=== PATIENT | male | born 1945 | race American Indian/Alaskan Native ===

== ENCOUNTER 2017-11-15 14:09 | Emergency (ER) | payer MEDICARE ==
--- NOTE | 2017-11-15 15:19 | Emergency Department Report ---
ED General Adult HPI - General Chief complaint: Hyperglycemia Stated complaint: HYPERGLYCEMIC Time Seen by Provider: 11/15/17 15:07 Source: patient, family, EMS (ems notes not available at time of chart dictation), RN notes reviewed, old records reviewed Mode of arrival: Ambulatory Limitations: No Limitations - History of Present Illness Initial comments: This is a 72-year-old gentleman who is not known to this provider previously, typically goes to [place] for his medical care, and reports a past medical history of diabetes. He is brought to the hospital by EMS and with family for evaluation of resolved altered mental status. The patient reports being in his usual state of health while out food shopping, and reports feeling generally weak. He reports that he thought his sugar was too low, then drank a can of soda. As per his family, shortly thereafter, the patient became altered, unresponsive, and fluctuations in consciousness. Apparently his fingerstick was in the 400s in the field. This lasted for less than a minute. It is now resolved. The patient denies preceding headache, chest pain, neck pain, abdominal pain and shortness of breath. He denies COMPLAINTS at this time. He denies urinary symptoms. His family corroborates that the patient is at his baseline mental status at this time. -: Sudden Consistency: now resolved Improves with: none Worsens with: none Associated Symptoms: confusion, malaise, syncope, weakness. denies: chest pain , cough, diaphoresis, fever/chills, headaches, loss of appetite, nausea/vomiting , rash, seizure - Related Data Previous Rx's Medication Instructions Recorded Last Taken Type Aspirin [Aspirin BABY CHEW TAB] 81 mg PO QDAY #30 tab.chew 11/15/17 Unknown Rx Allergies Allergy/AdvReac Type Severity Reaction Status Date / Time No Known Allergies Allergy Unverified 03/29/16 00:43 ED Review of Systems ROS: Stated complaint: HYPERGLYCEMIC Other details as noted in HPI Comment: All other systems reviewed and negative ED Past Medical Hx - Past Medical History Previous Medical History?: Yes Hx Hypertension: Yes Hx CVA: Yes (x2) Hx Diabetes: Yes Hx HIV: Yes Additional medical history: prostate cancer - Surgical History Past Surgical History?: Yes Additional Surgical History: vincenzo hip surgery - Social History Smoking Status: Current Every Day Smoker Substance Use Type: None - Medications Home Medications: Home Medications Medication Instructions Recorded Confirmed Last Taken Type Aspirin [Aspirin BABY CHEW TAB] 81 mg PO QDAY #30 tab.chew 11/15/17 Unknown Rx ED Physical Exam - General Limitations: No Limitations General appearance: alert, in no apparent distress - Head Head exam: Present: atraumatic, normocephalic - Eye Eye exam: Present: normal appearance, EOMI. Absent: nystagmus - ENT ENT exam: Present: normal exam, normal orophraynx, mucous membranes moist, normal external ear exam - Neck Neck exam: Present: normal inspection, full ROM. Absent: tenderness, meningismus - Respiratory Respiratory exam: Present: normal lung sounds bilaterally. Absent: respiratory distress - Cardiovascular Cardiovascular Exam: Present: normal rhythm, bradycardia, normal heart sounds. Absent: tachycardia, irregular rhythm, systolic murmur, diastolic murmur, rubs, gallop - GI/Abdominal GI/Abdominal exam: Present: soft, normal bowel sounds. Absent: distended, tenderness, guarding, rebound, rigid, pulsatile mass - Rectal Rectal exam: Present: deferred - Extremities Exam Extremities exam: Present: normal inspection, full ROM, other (2+ pulses noted in the bilateral upper, lower extremities. Compartments soft. No long bony tenderness. The pelvis is stable.). Absent: calf tenderness - Back Exam Back exam: Present: normal inspection, full ROM. Absent: tenderness, CVA tenderness (R), paraspinal tenderness, vertebral tenderness - Neurological Exam Neurological exam: Present: alert, oriented X3, CN II-XII intact, other ( Extraocular movements intact. Tongue midline. No facial droop. Facial sensation intact to light touch in the V1, V2, V3 distribution bilaterally. 5 and 5 strength in 4 extremities.. Sensation is intact to light touch in 4 extremities.). Absent: motor sensory deficit - Psychiatric Psychiatric exam: Present: normal affect, normal mood - Skin Skin exam: Present: warm, dry, intact, normal color. Absent: rash ED Course Vital Signs 11/15/17 11/15/17 14:51 16:40 Temperature 96.8 F L Pulse Rate 55 L Respiratory 16 Rate Blood Pressure 123/62 O2 Sat by Pulse 100 100 Oximetry - Reevaluation(s) Reevaluation #1: 11/15/17 15:22 Differential diagnosis, including but not limited to: Transient ischemic attack , seizure, intracranial hemorrhage, arrhythmia, acute coronary syndrome, structural cardiac disease, pneumonia, urinary tract infection, convulsion, hyperglycemia, hypoglycemia Assessment and plan: 72-year-old male with reported change in mental status while hyperglycemic. He is currently afebrile with reassuring vital signs, clinically sober, and has an NIH score of 0.. The patient exhibits decision- making capacity. He has a normal neurologic examination at this time. I recommended laboratory studies, CT scan of the brain, EKG. I also recommended hospital admission for observation. Currently, the patient is clinically sober without symptoms, and exhibits decision-making capacity and is free from distracting injury. He indicates that he is amenable to the aforementioned workup/evaluation, but he does not want to stay for hospital admission. The risks of leaving AGAINST MEDICAL ADVICE, including , disability, paralysis, loss of quality of life were discussed with the patient, he verbalizes understanding in his own words. The patient certainly exhibits decision-making capacity at this time, and understands implications of leaving without a complete medical workup/ evaluation. His conversation is witnessed by the patient's family. Reevaluation #2: 11/15/17 18:[address] scan of the brain is negative. Patient is reexamined. He again endorses his desire to leave. He indicates he is going to sign out AGAINST MEDICAL ADVICE. He understands the risks of leaving. Return precautions are reviewed. ED Medical Decision Making - Lab Data Result diagrams: 11/15/17 15:53 11/15/17 15:53 Vital Signs 11/15/17 14:51 Temperature 96.8 F L Pulse Rate 55 L Blood Pressure 123/62 O2 Sat by Pulse 100 Oximetry Vital Signs 11/15/17 14:51 Temperature 96.8 F L Pulse Rate 55 L Blood Pressure 123/62 O2 Sat by Pulse 100 Oximetry Labs 11/15/17 11/15/17 11/15/17 15:53 15:53 15:53 WBC 8.0 RBC 3.18 L Hgb 12.6 Hct 35.9 MCV 113 H MCH 40 H MCHC 35 H RDW 14.2 Lymph % (Auto) 13.4 [place] % (Auto) 5.8 Eos % (Auto) 0.6 Baso % (Auto) 0.3 Lymph # 1.1 L [place] # 0.5 Eos # 0.1 Baso # 0.0 Seg Neutrophils % 79.9 H Seg Neutrophils # 6.4 PT INR APTT Thrombin Time VBG pH 7.396 Sodium 130 L Potassium 4.6 Chloride 98.7 Carbon Dioxide 15 L Anion Gap 21 BUN 35 H Creatinine 1.9 H Estimated GFR 42 BUN/Creatinine Ratio 18 Glucose 434 H Calcium 8.6 Total Creatine Kinase Troponin T 11/15/17 11/15/17 11/15/17 15:53 15:53 15:53 WBC RBC Hgb Hct MCV MCH MCHC RDW Lymph % (Auto) [place] % (Auto) Eos % (Auto) Baso % (Auto) Lymph # [place] # Eos # Baso # Seg Neutrophils % Seg Neutrophils # PT 14.0 INR 1.03 APTT 27.8 Thrombin Time 16.6 VBG pH Sodium Potassium Chloride Carbon Dioxide Anion Gap BUN Creatinine Estimated GFR BUN/Creatinine Ratio Glucose Calcium Total Creatine Kinase 169 Troponin T 0.037 H - EKG Data -: EKG Interpreted by Me Rate: bradycardia - EKG Data 11/15/17 16:11 Sinus bradycardia, 51 bpm, prolonged NV interval, prolonged QTC, prolonged NV interval, left axis deviation, T-wave inversions 1, aVL, V4, V5 and V6. This EKG is abnormal but appears to be unchanged when compared to prior EKG from March 2016. It is not a STEMI. Borderline left ventricular voltage - Radiology Data Radiology results: report reviewed, image reviewed X-ray of the chest is negative for acute disease Critical care attestation.: If time is entered above; I have spent that time in minutes in the direct care of this critically ill patient, excluding procedure time. ED Disposition Clinical Impression: Hyperglycemia, History of syncope Disposition: LEFT AGAINST MED ADVICE Is pt being admited?: No Does the pt Need Aspirin: No Condition: Undetermined Instructions: Syncope (ED) Additional Instructions: As we discussed, you have left the hospital/emergency room AGAINST MEDICAL ADVICE. By leaving, you risked , disability, paralysis, permanent loss of quality of life. The ER is open 24 hours a day, 7 days a week. It never closes. Please return to the emergency room right away if and when you change your mind. If you decide not to return to the emergency room, please follow-up with the listed physician referrals as soon as possible. Do not drive or operate motor vehicles for the next 6 months. Follow up as soon as possible with either her electric organ assembler or her primary care doctor. Referrals: PRIMARY CAREMD [Primary Care Provider] - 3-5 Days [facility] [Provider Group] - 3-5 Days [facility] [Provider Group] - 3-5 Days [facility] [Provider Group] - 3-5 Days
--- NOTE | 2017-11-15 15:45 | XRay Report ---
FINAL REPORT EXAM: XR CHEST 1V AP HISTORY: hx of syncope ams COMPARISON: None. TECHNIQUE: Single frontal view of the chest FINDINGS: The cardiomediastinal silhouette is normal in appearance. The lungs are clear without focal consolidation. There is no pleural effusion or pneumothorax. There is no acute soft tissue or osseous abnormality. IMPRESSION: No acute cardiopulmonary disease.
[2017-11-15 16:14] LABS: Basophils % (Auto) 0.3 % (0.0-1.8); Eosinophils # (Auto) 0.1 K/mm3 (0.0-0.4); Eosinophils % (Auto) 0.6 % (0.0-4.3); Hematocrit 35.9 % (35.5-45.6); Hemoglobin 12.6 gm/dl (11.8-15.2); Lymphocytes # (Auto) 1.1 K/mm3 (1.2-5.4); Lymphocytes % (Auto) 13.4 % (13.4-35.0); Mean Corpuscular HGB Conc 35 % (32-34); Mean Corpuscular Hemoglobin 40 pg (28-32); Mean Corpuscular Volume 113 fl (84-94); Monocytes # (Auto) 0.5 K/mm3 (0.0-0.8); Monocytes % (Auto) 5.8 % (0.0-7.3); Red Blood Count 3.18 M/mm3 (3.65-5.03); Red Cell Distribution Width 14.2 % (13.2-15.2)
[2017-11-15 16:21] LABS: INR 1.03 (0.87-1.13)
[2017-11-15 16:22] LABS: Partial Thromboplastin Time 27.8 Sec. (24.2-36.6); Thrombin Time 16.6 Sec. (15.1-19.6)
[2017-11-15 16:28] LABS: Calcium 8.6 mg/dL (8.4-10.2)
[2017-11-15] MEDS ORDERED: NACL 0.9% 1000 ML 1,000 ML IV ONE (16:31)
[2017-11-15] MEDS ORDERED: HumuLIN R IV ONE (16:31)
[2017-11-15 16:58] LABS: Chol/HDL Ratio 2.53 %
[2017-11-15 17:08] LABS: Platelet Count 148 K/mm3 (140-440)
--- NOTE | 2017-11-15 18:31 | Cat Scan Report ---
FINAL REPORT EXAM: CT HEAD/BRAIN WO CON HISTORY: Stroke symptoms TECHNIQUE: Standard unenhanced CT of the head at 5.0 millimeter axial increments. PRIORS: None. FINDINGS: The ventricular system is normal in size and configuration. There is no evidence for parenchymal volume loss. There is a remote lacunar infarct involving right marsha. Small vessel ischemic changes in the periventricular white matter bilaterally are noted. There is no evidence for mass lesion, mass effect, midline shift, acute intracranial hemorrhage, or acute ischemia/ infarction. No evidence for acute skull fracture is seen. No abnormality in the overlying scalp soft tissues is seen. Visualized paranasal sinuses are clear. However, there is opacification of the left mastoid air cells consistent with mastoiditis. IMPRESSION: 1. no acute intracranial process noted. 2. Remote lacunar infarct in the right side of the marsha. Small vessel ischemic changes. 3. Left mastoiditis
[2017-11-15 19:34] VITALS: BP 133/71
== END 2017-11-15 19:34 | disposition left against medical advice (07) ==
LOC: ED 14:09
DX: E11.65 Type 2 diabetes mellitus with hyperglycemia (principal); I10 Essential (primary) hypertension; F17.200 Nicotine dependence, unspecified, uncomplicated; Z86.73 Personal history of transient ischemic attack (TIA), and cerebral infarction without residual deficits; Z85.46 Personal history of malignant neoplasm of prostate
CPT/HCPCS: 36415; 70450; 71045; 80048; 80061; 82550; 82805; 82962; 84484; 85025; 85610; 85670; 85730; 93005; 93010; 96361; 96374; 99285; J7030; J1815

== ENCOUNTER 2018-05-20 12:08 | Inpatient (IN) | payer MEDICARE ==
[2018-05-20] MEDS ORDERED: NACL 0.9% 1000 ML 1,000 ML IV ONE (12:40)
[2018-05-20] MEDS ORDERED: ZOFRAN IV ONE (12:40)
--- NOTE | 2018-05-20 12:47 | Emergency Department Report ---
HPI - General Chief Complaint: Hyperglycemia Time Seen by Provider: 05/20/18 12:28 - HPI HPI: Room 23 The patient is a 72-year-old male presenting with a chief complaint of dehydration. The patient states for the past 23 months he's had decreased oral intake. Patient admits to urinary frequency and feeling dehydrated. Patient states he's been compliant with his diabetes medications. Patient admits occasional nausea and vomiting but denies fever or pain of any type Location: [See above] Duration: 2-3 months Quality: Dehydrated Severity: Moderate Modifying factors: [see above] Context: [see above] Mode of transportation: [not driving] ED Past Medical Hx - Past Medical History Hx Hypertension: Yes Hx CVA: Yes (x2) Hx Diabetes: Yes Hx HIV: Yes (normal CD4 count Fall 2017) Additional medical history: prostate cancer - Surgical History Additional Surgical History: vincenzo hip surgery - Family History Family history: no significant - Social History Smoking Status: Current Some Day Smoker Substance Use Type: None (denies illicit drug use) - Medications Home Medications: Home Medications Medication Instructions Recorded Confirmed Last Taken Type Aspirin [Aspirin BABY CHEW TAB] 81 mg PO QDAY #30 tab.chew 11/15/17 Unknown Rx ED Review of Systems ROS: Stated complaint: GLUCOSE/NOT EATING Other details as noted in HPI Constitutional: denies: fever Eyes: denies: eye pain ENT: denies: throat pain Respiratory: no symptoms reported Cardiovascular: denies: chest pain Endocrine: increased urine Gastrointestinal: nausea, vomiting. denies: abdominal pain Genitourinary: frequency Musculoskeletal: denies: back pain Neurological: denies: headache Physical Exam - Physical Exam Vital Signs: Vital Signs 05/20/18 12:20 Temperature 98.8 F Pulse Rate 82 Respiratory 18 Rate Blood Pressure 140/73 Physical Exam: GENERAL: The patient is well-developed well-nourished male lying on stretcher not appearing to be in acute distress. [] HEENT: Normocephalic. Atraumatic. Extraocular motions are intact. Patient has moist mucous membranes. NECK: Supple. Trachea midline CHEST/LUNGS: Clear to auscultation. There is no respiratory distress noted. HEART/CARDIOVASCULAR: Regular. There is no tachycardia. There is no gallop rub or murmur. ABDOMEN: Abdomen is soft, nontender. Patient has normal bowel sounds. There is no abdominal distention. SKIN: There is no rash. There is no edema. There is no diaphoresis. NEURO: The patient is awake, alert, and oriented. The patient is cooperative. The patient has normal speech MUSCULOSKELETAL: There is no evidence of acute injury. ED Course Vital Signs 05/20/18 12:20 Temperature 98.8 F Pulse Rate 82 Respiratory 18 Rate Blood Pressure 140/73 ED Medical Decision Making - Lab Data Result diagrams: 05/20/18 12:50 05/20/18 12:51 Laboratory Tests 05/20/18 05/20/18 05/20/18 12:50 12:51 12:51 WBC 8.1 RBC 3.82 Hgb 14.7 Hct 46.0 H MCV 120 H MCH 38 H MCHC 32 RDW 14.1 Plt Count 134 L Lymph % (Auto) 11.0 L [place] % (Auto) 6.9 Eos % (Auto) 0.2 Baso % (Auto) 0.4 Lymph # 0.9 L [place] # 0.6 Eos # 0.0 Baso # 0.0 Seg Neutrophils % 81.5 H Seg Neutrophils # 6.6 VBG pH 7.208 L Sodium 141 Potassium 5.7 H Chloride 102.9 Carbon Dioxide 17 L Anion Gap 27 BUN 92 H Creatinine 3.7 H Estimated GFR 20 BUN/Creatinine Ratio 25 Glucose 1013 H* Calcium 9.0 - Differential Diagnosis DKA, dehydration, UTI Critical Care Time: Yes Critical care time in (mins) excluding proc time.: 30 Critical care attestation.: If time is entered above; I have spent that time in minutes in the direct care of this critically ill patient, excluding procedure time. ED Disposition Clinical Impression: DKA (diabetic ketoacidoses), Renal failure Disposition: [id number] OP ADMIT IP TO THIS HOSP Is pt being admited?: Yes Does the pt Need Aspirin: No Condition: Fair Instructions: Diabetic Ketoacidosis (ED) Referrals: BRODY MCCONNELL [Primary Care Provider] - 3-5 Days Time of Disposition: 13:45 (hospitalist paged (Dr Garduno))
[2018-05-20 13:06] LABS: Basophils % (Auto) 0.4 % (0.0-1.8); Eosinophils % (Auto) 0.2 % (0.0-4.3); Hemoglobin 14.7 gm/dl (11.8-15.2); Lymphocytes # (Auto) 0.9 K/mm3 (1.2-5.4); Mean Corpuscular HGB Conc 32 % (32-34); Mean Corpuscular Volume 120 fl (84-94); Monocytes # (Auto) 0.6 K/mm3 (0.0-0.8); Monocytes % (Auto) 6.9 % (0.0-7.3); Platelet Count 134 K/mm3 (140-440); Red Blood Count 3.82 M/mm3 (3.65-5.03); Red Cell Distribution Width 14.1 % (13.2-15.2)
[2018-05-20] MEDS ORDERED: D50W (25GM) Syringe IV PRN ×3 (13:39→16:11)
[2018-05-20 14:38] LABS: Calcium 9.2 mg/dL (8.4-10.2)
[2018-05-20] MEDS ORDERED: TYLENOL PO PRN (15:01)
[2018-05-20] MEDS ORDERED: SODIUM CHLORIDE FLUSH SYRINGE 10 ML IV PRN (15:01)
[2018-05-20] MEDS ORDERED: ZOFRAN IV PRN (15:01)
[2018-05-20] MEDS ORDERED: DILAUDID IV PRN (15:01)
[2018-05-20] MEDS: HumuLIN R 100 UNITS in NACL 0.9% 99 ML IV SCH ×3 (15:02→20:30)
[2018-05-20 15:44] LABS: Calcium 8.7 mg/dL (8.4-10.2)
[2018-05-20] MEDS ORDERED: D5W/0.45% NACL/KCL 20 MEQ 20 MEQ/1,000 ML BAG IV SCH ×2 (16:00→23:00)
[2018-05-20] MEDS ORDERED: KCL 10MEQ/100ML 10 MEQ/100 ML BAG IV SCH ×3 (16:00→17:00)
[2018-05-20] MEDS ORDERED: HumuLIN R 100 UNITS in NACL 0.9% 99 ML IV SCH (16:00)
[2018-05-20] MEDS: SODIUM CHLORIDE FLUSH SYRINGE 10 ML IV SCH (16:28)
[2018-05-20] MEDS ORDERED: D5/0.45NS 1,000 ML IV SCH (17:00)
[2018-05-20 18:12] LABS: Calcium 8.9 mg/dL (8.4-10.2)
[2018-05-20] MEDS ORDERED: HumuLIN R ONE (20:22)
[2018-05-20] MEDS ORDERED: NACL 0.9% 1000 ML 1,000 ML IV SCH (22:00)
[2018-05-20] MEDS ORDERED: ZIAGEN PO SCH (23:00)
--- NOTE | 2018-05-20 23:03 | Event Note ---
Date: 05/20/18 See dictated history and physical in the reports Hyperosmolar nonketotic state and diabetes HIV Hypertension Hyperlipidemia Insulin-dependent diabetes BPH
--- NOTE | 2018-05-20 23:22 | History and Physical Report ---
CHIEF COMPLAINT: 1. Lethargy. 2. Decreased oral intake for 1 week. 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 intake for the last couple of weeks. The patient states that he has been compliant with his diabetes medicines. Poor historian. Also has nausea. No vomiting. No fever. The patient has been lethargic for the last 2-3 days. Very poor p.o. intake. No fever or chills. No exacerbating or relieving factors. PAST MEDICAL HISTORY: As mentioned, cerebrovascular accident, hypertension, diabetes, HIV, and BPH. Also, prostate cancer. PAST SURGICAL HISTORY: Bilateral hip surgery. FAMILY HISTORY: Hypertension. SOCIAL HISTORY: Current smokes over a pack a day. CURRENT MEDICATIONS: Rosuvastatin 10 mg once a day, amlodipine 10 mg once a day, Levemir 50 units at night time, metformin 500 twice a day, antiretrovirals the names of which are not available. Tamsulosin 0.4, carvedilol 12.5 b.i.d., lisinopril 10 mg p.o. daily, aspirin 81 mg once a day. REVIEW OF SYSTEMS: Significant for patient being lethargic and poor p.o. intake. Alert, but the patient is not verbal. No fever or chills. A 14-point review of systems done. PHYSICAL EXAMINATION: GENERAL: Elderly male, cooperative during examination, but poorly verbal. VITAL SIGNS: Temperature 97.5, pulse is 66, respirations 16, blood pressure is 92/44. HEENT: Unremarkable. Tongue is dry. NECK: Supple, no lymphadenopathy, no thyromegaly. LUNGS: Clear to auscultation and percussion. Good air entry. CARDIOVASCULAR: S1, S2 heard. No gallop, no murmur, no rub. Apical impulse in left fifth intercostal space and midclavicular line. ABDOMEN: Soft and benign. No hepatosplenomegaly. No guarding, no rigidity. Hernial orifices are normal. EXTREMITIES: Good pedal pulses. No pedal edema. CENTRAL NERVOUS SYSTEM: Alert, but very lethargic, not coherent, not able to give history. LABORATORY DATA: Significant for a white count of 8100, hemoglobin of 14.7, hematocrit of 46, and platelet count of 134,000. Sodium is 140, potassium is 6.1, chloride is 104, bicarbonate is 16, BUN and creatinine is 92 and 3.5, glucose is 1051. Hemoglobin A1c is 16, calcium is 8.7, phosphorus is 6.3, magnesium is 2.7. No CAT scan was done. No EKG was done. ASSESSMENT AND PLAN: 1. Hyperosmolar nonketotic state in diabetes. The patient to get IV insulin and IV fluids. Monitor electrolytes frequently. Adjust the medications, Levemir and Humalog before each meal to be continued. 2. Hyperkalemia. The patient to get IV insulin, which will get the potassium level down. Also, calcium gluconate given. 3. Acute kidney injury. The patient on IV fluids for now. Nephrology consult requested. 4. Hypertension. If blood pressure permits, continue amlodipine and lisinopril. 5. Human immunodeficiency virus. Continue antiretrovirals. 6. Hyperlipidemia. Continue statins. 7. Benign prostatic hypertrophy. Continue tamsulosin. 8. Deep venous thrombosis prophylaxis, Lovenox 30 mg subcutaneous daily. CRITICAL CARE STATEMENT: The high probability of a clinically significant sudden or life-threatening deterioration of the pulmonary, cardiac, renal systems required my full and direct attention, intervention, and personal management. The aggregate critical care time was 40 minutes. This time is in addition to time spent performing reported procedures, but includes the followin. Data review and interpretation. 2. The patient assessment and monitoring of vital signs. 3. Documentation. 4. Medication orders and management. Critical care time was over 45 minutes. JOB# [id number] [id number]/NTS
[2018-05-20 23:48] LABS: Calcium 9.2 mg/dL (8.4-10.2)
[2018-05-21 01:38] LABS: Calcium 9.2 mg/dL (8.4-10.2)
[2018-05-21 02:14] LABS: Bacteria,Urine 1+ /HPF (Negative); Bilirubin,Urine NEG (Negative); Blood,Urine SM (Negative); Color,Urine Yellow (Yellow); Mucus,Urine FEW /HPF; Urobilinogen,Urine < 2.0 mg/dL (<2.0)
[2018-05-21] MEDS: D5/0.45NS 1,000 ML IV SCH ×2 (02:50→11:17)
[2018-05-21] MEDS: SODIUM CHLORIDE FLUSH SYRINGE 10 ML IV SCH ×2 (02:54→10:35)
[2018-05-21 07:27] LABS: Calcium 9.1 mg/dL (8.4-10.2)
[2018-05-21 08:34] LABS: Calcium 9.2 mg/dL (8.4-10.2)
[2018-05-21] MEDS ORDERED: LOVENOX SUB-Q SCH (10:00)
[2018-05-21] MEDS ORDERED: FLOMAX PO SCH (10:00)
[2018-05-21] MEDS ORDERED: BABY ASPIRIN PO SCH (10:00)
--- NOTE | 2018-05-21 12:23 | Progress Note ---
Assessment and Plan - Hyperosmolar, hyperglycemic nonketotic state Continue with insulin drip until blood sugar is less than 200. Then Commence SSI - T2DM Consistent Carbohydrate diet. SST Check A1c - Acute renal failure from acute tubular necrosis iv hydration - Hypernatremia Adjust ivf Encourage increase free water intake - DVT and GI PPX with Lovenox and pepcid - Disposition: D/c home when clinically stable - Spent 40 min with pt Subjective Date of service: 05/21/18 Principal diagnosis: Hyperosmolar hyperglycemic nonketotic state Interval history: Lying quietly in bed. in no obvious distress. Objective - Constitutional Vitals: Vital Signs - 12hr 05/21/18 05/21/18 05/21/18 00:31 01:01 01:30 Temperature Pulse Rate 68 71 66 Respiratory 14 19 13 Rate Blood Pressure 82/55 80/45 87/51 O2 Sat by Pulse 93 90 96 Oximetry 05/21/18 05/21/18 05/21/18 02:00 02:01 02:30 Temperature 97.5 F L Pulse Rate 70 68 Respiratory 13 11 L Rate Blood Pressure 109/59 100/59 O2 Sat by Pulse 99 100 Oximetry 05/21/18 05/21/18 05/21/18 03:00 03:31 04:00 Temperature 97.6 F Pulse Rate 67 66 63 Respiratory 13 15 19 Rate Blood Pressure 93/63 93/63 120/54 O2 Sat by Pulse 93 98 96 Oximetry 05/21/18 05/21/18 05/21/18 04:30 05:00 05:30 Temperature Pulse Rate 69 69 69 Respiratory Rate Blood Pressure 117/65 115/61 120/66 O2 Sat by Pulse 89 99 96 Oximetry 05/21/18 05/21/18 05/21/18 06:00 06:30 07:00 Temperature Pulse Rate 69 69 71 Respiratory Rate Blood Pressure 112/67 114/67 109/76 O2 Sat by Pulse 99 95 99 Oximetry 05/21/18 05/21/18 05/21/18 07:30 08:00 08:30 Temperature 97.6 F Pulse Rate 74 77 74 Respiratory 14 18 14 Rate Blood Pressure 113/65 103/61 110/69 O2 Sat by Pulse 98 98 99 Oximetry 05/21/18 05/21/18 05/21/18 09:01 09:30 10:00 Temperature Pulse Rate 75 77 75 Respiratory 17 17 11 L Rate Blood Pressure 114/72 98/65 109/70 O2 Sat by Pulse 96 98 99 Oximetry 05/21/18 05/21/18 05/21/18 10:30 11:00 11:30 Temperature Pulse Rate 70 69 72 Respiratory 15 16 14 Rate Blood Pressure 104/67 96/53 95/58 O2 Sat by Pulse 98 94 97 Oximetry - Labs CBC & Chem 7: 05/20/18 12:50 05/21/18 07:55 Labs: Abnormal lab results 05/20/18 05/20/18 05/20/18 Range/Units 12:20 12:50 12:51 Hct 46.0 H (35.5-45.6) % MCV 120 H (84-94) fl MCH 38 H (28-32) pg Plt Count 134 L (140-440) K/mm3 Lymph % (Auto) 11.0 L (13.4-35.0) % Lymph # 0.9 L (1.2-5.4) K/mm3 Seg Neutrophils % 81.5 H (40.0-70.0) % VBG pH (7.320-7.420) Sodium (137-145) mmol/L Potassium 5.7 H (3.6-5.0) mmol/L Chloride (98-107) mmol/L Carbon Dioxide 17 L (22-30) mmol/L BUN 92 H (9-20) mg/dL Creatinine 3.7 H (0.8-1.5) mg/dL Glucose 1013 H* (75-100) mg/dL POC Glucose > 500 H (70-105) Hemoglobin A1c (4-6) % Phosphorus (2.5-4.5) mg/dL Magnesium (1.7-2.3) mg/dL 05/20/18 05/20/18 05/20/18 Range/Units 12:51 13:59 13:59 Hct (35.5-45.6) % MCV (84-94) fl MCH (28-32) pg Plt Count (140-440) K/mm3 Lymph % (Auto) (13.4-35.0) % Lymph # (1.2-5.4) K/mm3 Seg Neutrophils % (40.0-70.0) % VBG pH 7.208 L (7.320-7.420) Sodium (137-145) mmol/L Potassium 6.3 H* (3.6-5.0) mmol/L Chloride (98-107) mmol/L Carbon Dioxide 16 L (22-30) mmol/L BUN 94 H (9-20) mg/dL Creatinine 4.0 H (0.8-1.5) mg/dL Glucose 1112 H* (75-100) mg/dL POC Glucose (70-105) Hemoglobin A1c (4-6) % Phosphorus 6.30 H (2.5-4.5) mg/dL Magnesium 2.70 H (1.7-2.3) mg/dL 05/20/18 05/20/18 05/20/18 Range/Units 15:13 15:13 16:23 Hct (35.5-45.6) % MCV (84-94) fl MCH (28-32) pg Plt Count (140-440) K/mm3 Lymph % (Auto) (13.4-35.0) % Lymph # (1.2-5.4) K/mm3 Seg Neutrophils % (40.0-70.0) % VBG pH (7.320-7.420) Sodium (137-145) mmol/L Potassium 6.1 H* (3.6-5.0) mmol/L Chloride (98-107) mmol/L Carbon Dioxide 16 L (22-30) mmol/L BUN 92 H (9-20) mg/dL Creatinine 3.5 H (0.8-1.5) mg/dL Glucose 1051 H* (75-100) mg/dL POC Glucose > 500 H (70-105) Hemoglobin A1c 16.0 H (4-6) % Phosphorus (2.5-4.5) mg/dL Magnesium (1.7-2.3) mg/dL 05/20/18 05/20/18 05/20/18 Range/Units 17:14 17:14 17:22 Hct (35.5-45.6) % MCV (84-94) fl MCH (28-32) pg Plt Count (140-440) K/mm3 Lymph % (Auto) (13.4-35.0) % Lymph # (1.2-5.4) K/mm3 Seg Neutrophils % (40.0-70.0) % VBG pH (7.320-7.420) Sodium (137-145) mmol/L Potassium (3.6-5.0) mmol/L Chloride (98-107) mmol/L Carbon Dioxide 18 L (22-30) mmol/L BUN 91 H (9-20) mg/dL Creatinine 3.5 H (0.8-1.5) mg/dL Glucose 850 H* (75-100) mg/dL POC Glucose > 500 H (70-105) Hemoglobin A1c (4-6) % Phosphorus 4.60 H D (2.5-4.5) mg/dL Magnesium 2.50 H (1.7-2.3) mg/dL 05/20/18 05/20/18 05/20/18 Range/Units 18:05 19:40 19:47 Hct (35.5-45.6) % MCV (84-94) fl MCH (28-32) pg Plt Count (140-440) K/mm3 Lymph % (Auto) (13.4-35.0) % Lymph # (1.2-5.4) K/mm3 Seg Neutrophils % (40.0-70.0) % VBG pH (7.320-7.420) Sodium 149 H (137-145) mmol/L Potassium (3.6-5.0) mmol/L Chloride 112.3 H (98-107) mmol/L Carbon Dioxide 19 L (22-30) mmol/L BUN 92 H (9-20) mg/dL Creatinine 3.6 H (0.8-1.5) mg/dL Glucose 498 H (75-100) mg/dL POC Glucose > 500 H 483 H (70-105) Hemoglobin A1c (4-6) % Phosphorus (2.5-4.5) mg/dL Magnesium (1.7-2.3) mg/dL 05/20/18 05/20/18 05/20/18 Range/Units 20:36 21:36 22:41 Hct (35.5-45.6) % MCV (84-94) fl MCH (28-32) pg Plt Count (140-440) K/mm3 Lymph % (Auto) (13.4-35.0) % Lymph # (1.2-5.4) K/mm3 Seg Neutrophils % (40.0-70.0) % VBG pH (7.320-7.420) Sodium (137-145) mmol/L Potassium (3.6-5.0) mmol/L Chloride (98-107) mmol/L Carbon Dioxide (22-30) mmol/L BUN (9-20) mg/dL Creatinine (0.8-1.5) mg/dL Glucose (75-100) mg/dL POC Glucose 449 H 433 H 173 H (70-105) Hemoglobin A1c (4-6) % Phosphorus (2.5-4.5) mg/dL Magnesium (1.7-2.3) mg/dL 05/20/18 05/21/18 05/21/18 Range/Units 23:12 00:42 01:32 Hct (35.5-45.6) % MCV (84-94) fl MCH (28-32) pg Plt Count (140-440) K/mm3 Lymph % (Auto) (13.4-35.0) % Lymph # (1.2-5.4) K/mm3 Seg Neutrophils % (40.0-70.0) % VBG pH (7.320-7.420) Sodium 151 H 150 H (137-145) mmol/L Potassium (3.6-5.0) mmol/L Chloride 117.7 H 117.1 H (98-107) mmol/L Carbon Dioxide 15 L 15 L (22-30) mmol/L BUN 88 H 90 H (9-20) mg/dL Creatinine 3.6 H 3.6 H (0.8-1.5) mg/dL Glucose 149 H 108 H (75-100) mg/dL POC Glucose 107 H (70-105) Hemoglobin A1c (4-6) % Phosphorus (2.5-4.5) mg/dL Magnesium (1.7-2.3) mg/dL 05/21/18 05/21/18 05/21/18 Range/Units 02:26 03:28 04:32 Hct (35.5-45.6) % MCV (84-94) fl MCH (28-32) pg Plt Count (140-440) K/mm3 Lymph % (Auto) (13.4-35.0) % Lymph # (1.2-5.4) K/mm3 Seg Neutrophils % (40.0-70.0) % VBG pH (7.320-7.420) Sodium (137-145) mmol/L Potassium (3.6-5.0) mmol/L Chloride (98-107) mmol/L Carbon Dioxide (22-30) mmol/L BUN (9-20) mg/dL Creatinine (0.8-1.5) mg/dL Glucose (75-100) mg/dL POC Glucose 134 H 198 H 179 H (70-105) Hemoglobin A1c (4-6) % Phosphorus (2.5-4.5) mg/dL Magnesium (1.7-2.3) mg/dL 05/21/18 05/21/18 05/21/18 Range/Units 05:24 05:27 06:04 Hct (35.5-45.6) % MCV (84-94) fl MCH (28-32) pg Plt Count (140-440) K/mm3 Lymph % (Auto) (13.4-35.0) % Lymph # (1.2-5.4) K/mm3 Seg Neutrophils % (40.0-70.0) % VBG pH (7.320-7.420) Sodium 152 H (137-145) mmol/L Potassium (3.6-5.0) mmol/L Chloride 119.2 H (98-107) mmol/L Carbon Dioxide 19 L (22-30) mmol/L BUN 84 H (9-20) mg/dL Creatinine 3.1 H (0.8-1.5) mg/dL Glucose 121 H (75-100) mg/dL POC Glucose 126 H 120 H (70-105) Hemoglobin A1c (4-6) % Phosphorus (2.5-4.5) mg/dL Magnesium (1.7-2.3) mg/dL 05/21/18 05/21/18 05/21/18 Range/Units 06:50 07:05 07:55 Hct (35.5-45.6) % MCV (84-94) fl MCH (28-32) pg Plt Count (140-440) K/mm3 Lymph % (Auto) (13.4-35.0) % Lymph # (1.2-5.4) K/mm3 Seg Neutrophils % (40.0-70.0) % VBG pH (7.320-7.420) Sodium 151 H 151 H (137-145) mmol/L Potassium (3.6-5.0) mmol/L Chloride 114.7 H 115.3 H (98-107) mmol/L Carbon Dioxide 18 L 18 L (22-30) mmol/L BUN 84 H 80 H (9-20) mg/dL Creatinine 3.1 H 2.9 H (0.8-1.5) mg/dL Glucose 110 H (75-100) mg/dL POC Glucose 117 H (70-105) Hemoglobin A1c (4-6) % Phosphorus (2.5-4.5) mg/dL Magnesium (1.7-2.3) mg/dL 05/21/18 Range/Units 08:14 Hct (35.5-45.6) % MCV (84-94) fl MCH (28-32) pg Plt Count (140-440) K/mm3 Lymph % (Auto) (13.4-35.0) % Lymph # (1.2-5.4) K/mm3 Seg Neutrophils % (40.0-70.0) % VBG pH (7.320-7.420) Sodium (137-145) mmol/L Potassium (3.6-5.0) mmol/L Chloride (98-107) mmol/L Carbon Dioxide (22-30) mmol/L BUN (9-20) mg/dL Creatinine (0.8-1.5) mg/dL Glucose (75-100) mg/dL POC Glucose 121 H (70-105) Hemoglobin A1c (4-6) % Phosphorus (2.5-4.5) mg/dL Magnesium (1.7-2.3) mg/dL
[2018-05-21] MEDS: HumuLIN R 100 UNITS in NACL 0.9% 99 ML IV SCH (14:23)
[2018-05-21 15:21] LABS: Calcium 9.2 mg/dL (8.4-10.2)
[2018-05-21 17:27] LABS: Calcium 8.9 mg/dL (8.4-10.2)
--- NOTE | 2018-05-21 17:35 | Consultation ---
History of Present Illness Consult date: 05/21/18 Requesting physician: NIKKO DAN Reason for consult: other (HONK) History of present illness: Pt. presented with weakness, poor PO intake, N/V, suboptimal compliance with insulin regimen. Denies fevers, chills, SOB, chest pain, cough, sputum. Has been on insulin drip since admit. He is feeling better now and states he is "starving". Active Medications Abacavir Sulfate (Ziagen) 300 mg PO BID [facility] Last Admin: 05/20/18 23:36 Dose: 300 mg Documented by: Acetaminophen (Tylenol) 650 mg PO Q4H PRN PRN Reason: Pain MILD(1-3)/Fever >100.5/SIMMONS Aspirin (Baby Aspirin) 81 mg PO QDAY [facility] Last Admin: 05/21/18 10:45 Dose: Not Given Documented by: Atorvastatin Calcium (Lipitor) 20 mg PO QHS [facility] Dextrose (D50w (25gm) Syringe) 0 ml IV PRN PRN PRN Reason: Hypoglycemia Enoxaparin Sodium (Lovenox) 30 mg SUB-Q QDAY [facility] Last Admin: 05/21/18 10:34 Dose: 30 mg Documented by: Hydromorphone HCl (Dilaudid) 0.5 mg IV Q3H PRN PRN Reason: Pain , Severe (7-10) Insulin Human Regular 100 (units/ Sodium Chloride) 100 mls @ 1 mls/hr IV TITR [facility]; Protocol Last Admin: 05/21/18 14:23 Dose: 4 units/hr, 4 mls/hr Documented by: Dextrose/Sodium Chloride (D5/0.45ns) 1,000 mls @ 125 mls/hr IV DIRECT [facility] Last Admin: 05/21/18 11:17 Dose: 125 mls/hr Documented by: Ondansetron HCl (Zofran) 4 mg IV Q8H PRN PRN Reason: Nausea And Vomiting Sodium Chloride (Sodium Chloride Flush Syringe 10 Ml) 10 ml IV BID [facility] Last Admin: 05/21/18 10:35 Dose: 10 ml Documented by: Sodium Chloride (Sodium Chloride Flush Syringe 10 Ml) 10 ml IV PRN PRN PRN Reason: LINE FLUSH Tamsulosin HCl (Flomax) 0.4 mg PO QDAY [facility] Last Admin: 05/21/18 10:46 Dose: Not Given Documented by: Past History Past Medical History: other (HTN, DM, HLD, HIV) Social history: smoking, full code. denies: alcohol abuse, prescription drug abuse, IV drug use Family history: other (No pulm issues reported) Medications and Allergies Allergies Allergy/AdvReac Type Severity Reaction Status Date / Time No Known Allergies Allergy Unverified 03/29/16 00:43 Home Medications Medication Instructions Recorded Confirmed Last Taken Type Aspirin [Aspirin BABY CHEW TAB] 81 mg PO QDAY #30 tab.chew 11/15/17 Unknown Rx Abacavir/Lamivudine/Zidovudine PO DAILY 05/21/18 Unknown History Amlodipine Besylate 10 mg PO QDAY 05/21/18 05/21/18 Unknown History Carvedilol 6.25 mg PO BID 05/21/18 05/21/18 Unknown History Isentress 400 mg PO Q12HR 05/21/18 05/21/18 Unknown History Levemir Flextouch 60 unit SUB-Q QHS 05/21/18 05/21/18 Unknown History Lisinopril 40 mg PO DAILY 05/21/18 05/21/18 Unknown History Metformin HCl 500 mg PO BID 05/21/18 05/21/18 Unknown History Rosuvastatin Calcium 10 mg PO DAILY 05/21/18 05/21/18 Unknown History Tamsulosin HCl 0.4 mg PO HS 05/21/18 05/21/18 Unknown History Active Meds: Active Medications Abacavir Sulfate (Ziagen) 300 mg PO BID [facility] Last Admin: 05/20/18 23:36 Dose: 300 mg Documented by: Acetaminophen (Tylenol) 650 mg PO Q4H PRN PRN Reason: Pain MILD(1-3)/Fever >100.5/SIMMONS Aspirin (Baby Aspirin) 81 mg PO QDAY [facility] Last Admin: 05/21/18 10:45 Dose: Not Given Documented by: Atorvastatin Calcium (Lipitor) 20 mg PO QHS [facility] Dextrose (D50w (25gm) Syringe) 0 ml IV PRN PRN PRN Reason: Hypoglycemia Enoxaparin Sodium (Lovenox) 30 mg SUB-Q QDAY [facility] Last Admin: 05/21/18 10:34 Dose: 30 mg Documented by: Hydromorphone HCl (Dilaudid) 0.5 mg IV Q3H PRN PRN Reason: Pain , Severe (7-10) Insulin Human Regular 100 (units/ Sodium Chloride) 100 mls @ 1 mls/hr IV TITR [facility]; Protocol Last Admin: 05/21/18 14:23 Dose: 4 units/hr, 4 mls/hr Documented by: Dextrose/Sodium Chloride (D5/0.45ns) 1,000 mls @ 125 mls/hr IV DIRECT [facility] Last Admin: 05/21/18 11:17 Dose: 125 mls/hr Documented by: Ondansetron HCl (Zofran) 4 mg IV Q8H PRN PRN Reason: Nausea And Vomiting Sodium Chloride (Sodium Chloride Flush Syringe 10 Ml) 10 ml IV BID [facility] Last Admin: 05/21/18 10:35 Dose: 10 ml Documented by: Sodium Chloride (Sodium Chloride Flush Syringe 10 Ml) 10 ml IV PRN PRN PRN Reason: LINE FLUSH Tamsulosin HCl (Flomax) 0.4 mg PO QDAY [facility] Last Admin: 05/21/18 10:46 Dose: Not Given Documented by: Review of Systems All systems: negative Physical Examination Vital signs: Vital Signs Pulse Ox 97 05/20/18 12:14 General appearance: no acute distress, alert Eyes: non-icteric ENT: oropharynx moist Neck: supple Effort: normal Ascultation: Bilateral: clear Cardiovascular: regular rate and rhythm (no r/g; II/ systolic murmur RUSB and LUSB) Gastrointestinal: normoactive bowel sounds, soft, non-tender, non-distended Integumentary: normal Extremities: no cyanosis, no edema, pink and warm Musculoskeletal: no deformities normal mental status, non-focal exam, pupils equal and round, CN II-XII normal mood appropriate, affect normal Results - Laboratory Findings CBC and BMP: 05/20/18 12:50 05/21/18 17:01 Abnormal lab findings: Abnormal Labs 05/20/18 05/20/18 05/20/18 12:20 12:50 12:51 Hct 46.0 H MCV 120 H MCH 38 H Plt Count 134 L Lymph % (Auto) 11.0 L Lymph # 0.9 L Seg Neutrophils % 81.5 H VBG pH Sodium Potassium 5.7 H Chloride Carbon Dioxide 17 L BUN 92 H Creatinine 3.7 H Glucose 1013 H* POC Glucose > 500 H Hemoglobin A1c Phosphorus Magnesium Cholesterol LDL Cholesterol Direct HDL Cholesterol 05/20/18 05/20/18 05/20/18 12:51 13:59 13:59 Hct MCV MCH Plt Count Lymph % (Auto) Lymph # Seg Neutrophils % VBG pH 7.208 L Sodium Potassium 6.3 H* Chloride Carbon Dioxide 16 L BUN 94 H Creatinine 4.0 H Glucose 1112 H* POC Glucose Hemoglobin A1c Phosphorus 6.30 H Magnesium 2.70 H Cholesterol LDL Cholesterol Direct HDL Cholesterol 05/20/18 05/20/18 05/20/18 15:13 15:13 16:23 Hct MCV MCH Plt Count Lymph % (Auto) Lymph # Seg Neutrophils % VBG pH Sodium Potassium 6.1 H* Chloride Carbon Dioxide 16 L BUN 92 H Creatinine 3.5 H Glucose 1051 H* POC Glucose > 500 H Hemoglobin A1c 16.0 H Phosphorus Magnesium Cholesterol LDL Cholesterol Direct HDL Cholesterol 05/20/18 05/20/18 05/20/18 17:14 17:14 17:22 Hct MCV MCH Plt Count Lymph % (Auto) Lymph # Seg Neutrophils % VBG pH Sodium Potassium Chloride Carbon Dioxide 18 L BUN 91 H Creatinine 3.5 H Glucose 850 H* POC Glucose > 500 H Hemoglobin A1c Phosphorus 4.60 H D Magnesium 2.50 H Cholesterol LDL Cholesterol Direct HDL Cholesterol 05/20/18 05/20/18 05/20/18 18:05 19:40 19:47 Hct MCV MCH Plt Count Lymph % (Auto) Lymph # Seg Neutrophils % VBG pH Sodium 149 H Potassium Chloride 112.3 H Carbon Dioxide 19 L BUN 92 H Creatinine 3.6 H Glucose 498 H POC Glucose > 500 H 483 H Hemoglobin A1c Phosphorus Magnesium Cholesterol LDL Cholesterol Direct HDL Cholesterol 05/20/18 05/20/18 05/20/18 20:36 21:36 22:41 Hct MCV MCH Plt Count Lymph % (Auto) Lymph # Seg Neutrophils % VBG pH Sodium Potassium Chloride Carbon Dioxide BUN Creatinine Glucose POC Glucose 449 H 433 H 173 H Hemoglobin A1c Phosphorus Magnesium Cholesterol LDL Cholesterol Direct HDL Cholesterol 05/20/18 05/21/18 05/21/18 23:12 00:42 01:32 Hct MCV MCH Plt Count Lymph % (Auto) Lymph # Seg Neutrophils % VBG pH Sodium 151 H 150 H Potassium Chloride 117.7 H 117.1 H Carbon Dioxide 15 L 15 L BUN 88 H 90 H Creatinine 3.6 H 3.6 H Glucose 149 H 108 H POC Glucose 107 H Hemoglobin A1c Phosphorus Magnesium Cholesterol LDL Cholesterol Direct HDL Cholesterol 05/21/18 05/21/18 05/21/18 02:26 03:28 04:32 Hct MCV MCH Plt Count Lymph % (Auto) Lymph # Seg Neutrophils % VBG pH Sodium Potassium Chloride Carbon Dioxide BUN Creatinine Glucose POC Glucose 134 H 198 H 179 H Hemoglobin A1c Phosphorus Magnesium Cholesterol LDL Cholesterol Direct HDL Cholesterol 05/21/18 05/21/18 05/21/18 05:24 05:27 06:04 Hct MCV MCH Plt Count Lymph % (Auto) Lymph # Seg Neutrophils % VBG pH Sodium 152 H Potassium Chloride 119.2 H Carbon Dioxide 19 L BUN 84 H Creatinine 3.1 H Glucose 121 H POC Glucose 126 H 120 H Hemoglobin A1c Phosphorus Magnesium Cholesterol LDL Cholesterol Direct HDL Cholesterol 05/21/18 05/21/18 05/21/18 06:50 07:05 07:55 Hct MCV MCH Plt Count Lymph % (Auto) Lymph # Seg Neutrophils % VBG pH Sodium 151 H 151 H Potassium Chloride 114.7 H 115.3 H Carbon Dioxide 18 L 18 L BUN 84 H 80 H Creatinine 3.1 H 2.9 H Glucose 110 H POC Glucose 117 H Hemoglobin A1c Phosphorus Magnesium Cholesterol LDL Cholesterol Direct HDL Cholesterol 05/21/18 05/21/18 05/21/18 08:14 13:29 13:29 Hct MCV MCH Plt Count Lymph % (Auto) Lymph # Seg Neutrophils % VBG pH Sodium 150 H Potassium Chloride 114.9 H Carbon Dioxide 16 L BUN 75 H Creatinine 2.8 H Glucose 140 H POC Glucose 121 H Hemoglobin A1c Phosphorus Magnesium Cholesterol 6 L LDL Cholesterol Direct 4 L HDL Cholesterol 3 L 05/21/18 05/21/18 14:44 17:01 Hct MCV MCH Plt Count Lymph % (Auto) Lymph # Seg Neutrophils % VBG pH Sodium 150 H 151 H Potassium Chloride 115.6 H 120.5 H Carbon Dioxide 15 L 18 L BUN 76 H 72 H Creatinine 2.3 H 2.8 H Glucose 113 H 112 H POC Glucose Hemoglobin A1c Phosphorus Magnesium Cholesterol LDL Cholesterol Direct HDL Cholesterol Assessment and Plan Imp: 1. Hyperosmolar non-ketotic state, probably related to non-compliance with insulin regimen (HgBa1c is 16) 2. Volume depletion 3. Hypernatremia 4. CONNIE on CKD 5. HIV 6. Chronic tobacco abuse Rec: 1. He still has an anion gap but much of this may be due to renal failure; he states he is "starving"; would consider advancing diet and switching him to long-acting insulin tonight; RN will discuss with primary 2. Cont. hypotonic IVFs; if diet is advanced would push free water intake 3. Would consult nephrology 4. Would cont. home HIV regimen 5. Stop smoking 6. Renally dosed Lovenox for DVT PPx 7. Cont. to monitor labs closely; he appears to be improving clinically CCT 31 minutes; thanks for the consult
[2018-05-21] MEDS ORDERED: D50W (25GM) Syringe IV PRN ×2 (19:49→20:03)
[2018-05-21] MEDS ORDERED: NON-FORMULARY (Lisinopril 40 MG) PO SCH (20:00)
[2018-05-21] MEDS ORDERED: NON-FORMULARY (Amlodipine Besylate 10 MG) PO SCH (20:00)
[2018-05-21] MEDS ORDERED: ROSUVASTATIN CALCIUM 10 MG PO SCH (20:00)
[2018-05-21] MEDS ORDERED: NORVASC PO SCH (22:00)
[2018-05-21] MEDS ORDERED: LEVEMIR 30 UNIT SUB-Q SCH (22:00)
[2018-05-21] MEDS ORDERED: NON-FORMULARY (Tamsulosin Hcl 0.4 MG) PO SCH (22:00)
[2018-05-21] MEDS ORDERED: COREG PO SCH (22:00)
[2018-05-21] MEDS ORDERED: LANTUS SUB-Q SCH (22:00)
[2018-05-21] MEDS ORDERED: ZESTRIL PO SCH (22:00)
[2018-05-21] MEDS ORDERED: NON-FORMULARY (Carvedilol 6.25 MG) PO SCH (22:00)
[2018-05-21] MEDS ORDERED: HumuLIN R SUB-Q SCH (22:30)
[2018-05-21 23:17] VITALS: BP 129/73
[2018-05-21 23:30] LABS: Creatinine,Urine 89.4 mg/dL (0.1-20.0); Microalbumin/Creatinine Ratio 149.8 ug/mg
--- NOTE | 2018-05-22 01:25 | Event Note ---
Date: 05/22/18 Nurse reported that the patient fell out of bed A stat CT of the head was obtained which shows subarachnoid blood in the cortical sulci of the frontal lobe bilateral, there is also blood in the occipital horn of the right lateral ventricle There is no change in mental status, vitals are stable, open wound on the right head, which is covered Patient will be transferred to [facility], Dr. Madsen accepted the patient Attempted to reach family without success The high probability of a clinically significant, sudden or life threatening deterioration of the [CV, GI, respiratory] system(s) required my full and direct attention, intervention and personal management. The aggregate critical care time was [ 35] minutes. This time is in addition to time spent performing reported procedures but includes the following: x] Data Review and interpretation [x] Patient assessment and monitoring of vital signs [x] Documentation [x] Medication orders and management
--- NOTE | 2018-05-23 16:47 | Discharge Summary ---
Providers - Providers Date of Admission: 05/20/18 15:01 Date of discharge: 05/22/18 Attending physician: MINDI RENTERIA 05/20/18 15:04 Consult to Dietitian/Nutrition [CONS] Routine Physician Instructions: Reason For Exam: DKA Reason for Consult: Nutrition Recommendations Reason for Consult: Diet education Consult to Physician [CONS] Routine Comment: Evelyn @ [facility] notified @ 17:00- [facility] Consulting Provider: CORIE NAVARRO Physician Instructions: Reason For Exam: dka Primary care physician: BRODY MCCONNELL Hospitalization Reason for admission: Hyperosmolar non-ketotic state, probably related to non- compliance Condition: Serious Pertinent studies: CT head:subarachnoid blood in the cortical sulci of the frontal lobe bilateral, there is also blood in the occipital horn of the right lateral ventricle Procedures: None Hospital course: Final diagnosis: -Subarachnoid hemorrhage secondary to trauma -Hyperosmolar non-ketotic state, probably related to non-compliance with insulin regimen (HgBa1c is 16) -Hypernatremia secondary to dehydration -Acute on CRF -History of HIV disease -Chronic tobacco abuse Patient was admitted to the ICU and placed on DKA protocol. In the integrity director of 05/22/2018, patient fell in his room while he was trying to get up from his bed without calling for help. Head CT scan done showed subarachnoid hemorrhage. Due to nonavailability of neurosurgery in our facility, patient was transferred to [facility] in [facility]. Disposition: [id number]/TX-[id number] ANOTHER TYPE HLTHCARE Time spent for discharge: 30 minutes Core Measure Documentation - Palliative Care Palliative Care/ Comfort Measures: Not Applicable - Core Measures Any of the following diagnoses?: none Exam - Physical Exam Narrative exam: I did not personally examine the patient because he was transferred before the morning rounds - Constitutional Vitals: Temp Pulse Resp BP Pulse Ox 97.4 F L 76 15 129/73 100 05/21/18 23:12 05/21/18 23:00 05/21/18 23:00 05/21/18 23:00 05/21/18 23:00 Plan Follow up with: BRODY MCCONNELL [Primary Care Provider] - 3-5 Days Forms: Accompanied Note
--- NOTE | 2018-05-24 10:08 | Cat Scan Report ---
FINAL REPORT PROCEDURE: CT HEAD/BRAIN WO CON TECHNIQUE: Computerized tomography of the head was performed without contrast material. HISTORY: fall BLEEDING RT SIDE OF HEAD COMPARISON: 11/15/2017 FINDINGS: Skull and scalp: Normal. Paranasal sinuses: Normal. Ventricles and subarachnoid spaces: There is subarachnoid blood in the cortical sulci of the frontal lobes bilaterally. There is central and cortical atrophy appropriate for the patient's age. There is no hydrocephalus or asymmetry.. There is blood in the occipital horn of the right lateral ventricle. Cerebrum: There is no intra-axial hemorrhage. There is no subdural or epidural hematoma. There is no mass, mass effect or midline shift. There is chronic deep white matter ischemic gliosis. There is an old lacunar infarct defect in the left putamen.. Cerebellum and brainstem: No evidence of hemorrhage, acute infarction or mass. There is an old lacuna r infarct defect in the right paramedian [place]. Vasculature: Normal. Comments: None. IMPRESSION: There is posttraumatic subarachnoid blood in the cortical sulci of the frontal lobes bilaterally. There is blood in the occipital horn of the right lateral ventricle. There is no intra-axial hemorrhage. There is no subdural or epidural hematoma. There is no mass, mass effect or midline shift. There is chronic deep white matter ischemic gliosis. There are old lacunar infarcts as described. Dr. Gutierrez was notified by telephone at 12:16 a.m. central time.
== END 2018-05-22 03:40 | disposition short-term general hospital (02) | DRG 682 ==
LOC: ED 12:08 → CC1 15:01
PROVIDERS: ADMIT Internal Medicine; ATTEND Internal Medicine
DX: N17.0 Acute kidney failure with tubular necrosis (principal); E11.00 Type 2 diabetes mellitus with hyperosmolarity without nonketotic hyperglycemic-hyperosmolar coma (NKHHC); S06.6X0A Traumatic subarachnoid hemorrhage without loss of consciousness, initial encounter; E87.0 Hyperosmolality and hypernatremia; E86.0 Dehydration; I10 Essential (primary) hypertension; Z86.73 Personal history of transient ischemic attack (TIA), and cerebral infarction without residual deficits; Z85.46 Personal history of malignant neoplasm of prostate; F17.200 Nicotine dependence, unspecified, uncomplicated; Z79.82 Long term (current) use of aspirin; E78.5 Hyperlipidemia, unspecified; N40.0 Benign prostatic hyperplasia without lower urinary tract symptoms; W06.XXXA Fall from bed, initial encounter; Y93.89 Activity, other specified; Y92.230 Patient room in hospital as the place of occurrence of the external cause; Y99.8 Other external cause status; Z91.19 Patient's noncompliance with other medical treatment and regimen
CPT/HCPCS: 36415; 70450; 80048; 80061; 81001; 82043; 82805; 82962; 83036; 83735; 84100; 85025; 96374; 99291; G0378; A9270-GY; J1650; J1815; J2405; J7030

== ENCOUNTER 2018-10-24 14:53 | Inpatient (IN) | payer MEDICARE ==
[2018-10-24 15:51] LABS: Basophils % (Auto) 0.3 % (0.0-1.8); Eosinophils % (Auto) 0.6 % (0.0-4.3); Hematocrit 35.9 % (35.5-45.6); Hemoglobin 11.8 gm/dl (11.8-15.2); Lymphocytes # (Auto) 0.9 K/mm3 (1.2-5.4); Lymphocytes % (Auto) 16.4 % (13.4-35.0); Mean Corpuscular HGB Conc 33 % (32-34); Mean Corpuscular Volume 120 fl (84-94); Monocytes # (Auto) 0.5 K/mm3 (0.0-0.8); Monocytes % (Auto) 8.9 % (0.0-7.3); Platelet Count 118 K/mm3 (140-440); Red Blood Count 2.99 M/mm3 (3.65-5.03); Red Cell Distribution Width 15.8 % (13.2-15.2)
[2018-10-24 16:05] LABS: Calcium 8.9 mg/dL (8.4-10.2)
[2018-10-24] MEDS ORDERED: NACL 0.9% 1000 ML 1,000 ML IV ONE (16:34)
[2018-10-24 16:43] LABS: Chol/HDL Ratio 1.87 %
[2018-10-24] MEDS ORDERED: LASIX IV ONE (17:35)
--- NOTE | 2018-10-24 17:38 | Emergency Department Report ---
ED General Adult HPI - General Chief complaint: Weakness Stated complaint: GREY Time Seen by Provider: 10/24/18 16:06 Source: patient, EMS Mode of arrival: Stretcher Limitations: No Limitations - History of Present Illness Initial comments: Patient presents to the emergency department for multiple chief complaints. The patient arrived via EMS with complaint of being found on the floor of his home. Patient states he was on the floor for greater than 5 hours. Patient states he is not sure if he hit his head or not. The patient also complains of abdominal pain and chest pain. Patient is unsure of his onset of chest pain and states it's located on the left side of his chest without radiation. -: unknown Location: chest, abdomen Radiation: non-radiation Quality: aching Consistency: constant Improves with: none Worsens with: none Associated Symptoms: denies other symptoms Treatments Prior to Arrival: none - Related Data Home Medications Medication Instructions Recorded Confirmed Last Taken Abacavir/Lamivudine/Zidovudine 1 tab PO DAILY 05/21/18 10/24/18 Unknown Amlodipine Besylate 10 mg PO QDAY 05/21/18 10/24/18 Unknown Carvedilol 6.25 mg PO BID 05/21/18 10/24/18 Unknown Isentress 400 mg PO Q12HR 05/21/18 10/24/18 Unknown Levemir Flextouch 60 unit SUB-Q QHS 05/21/18 10/24/18 Unknown Lisinopril 40 mg PO DAILY 05/21/18 10/24/18 Unknown Metformin HCl 500 mg PO BID 05/21/18 10/24/18 Unknown Rosuvastatin Calcium 10 mg PO DAILY 05/21/18 10/24/18 Unknown Tamsulosin HCl 0.4 mg PO HS 05/21/18 10/24/18 Unknown Previous Rx's Medication Instructions Recorded Last Taken Type Aspirin [Aspirin BABY CHEW TAB] 81 mg PO QDAY #30 tab.chew 11/15/17 Unknown Rx Allergies Allergy/AdvReac Type Severity Reaction Status Date / Time No Known Allergies Allergy Unverified 03/29/16 00:43 ED Review of Systems ROS: Stated complaint: GREY Other details as noted in HPI Constitutional: weakness. denies: chills, fever Eyes: denies: eye pain, eye discharge, vision change ENT: denies: ear pain, throat pain Respiratory: denies: cough, shortness of breath, wheezing Cardiovascular: denies: chest pain, palpitations Endocrine: no symptoms reported Gastrointestinal: abdominal pain. denies: nausea, diarrhea Genitourinary: denies: urgency, dysuria Musculoskeletal: denies: back pain, joint swelling, arthralgia Skin: denies: rash, lesions Neurological: denies: headache, weakness, paresthesias Psychiatric: denies: anxiety, depression Hematological/Lymphatic: denies: easy bleeding, easy bruising ED Past Medical Hx - Past Medical History Previous Medical History?: Yes Hx Hypertension: Yes Hx CVA: Yes (x2) Hx Diabetes: Yes Hx COPD: Yes Hx HIV: Yes Additional medical history: prostate cancer, hyperlipidemia, emphysema - Surgical History Past Surgical History?: Yes Additional Surgical History: vincenzo hip surgery - Social History Smoking Status: Current Every Day Smoker Substance Use Type: None - Medications Home Medications: Home Medications Medication Instructions Recorded Confirmed Last Taken Type Aspirin [Aspirin BABY CHEW TAB] 81 mg PO QDAY #30 tab.chew 11/15/17 10/24/18 Unknown Rx Abacavir/Lamivudine/Zidovudine 1 tab PO DAILY 05/21/18 10/24/18 Unknown History Amlodipine Besylate 10 mg PO QDAY 05/21/18 10/24/18 Unknown History Carvedilol 6.25 mg PO BID 05/21/18 10/24/18 Unknown History Isentress 400 mg PO Q12HR 05/21/18 10/24/18 Unknown History Levemir Flextouch 60 unit SUB-Q QHS 05/21/18 10/24/18 Unknown History Lisinopril 40 mg PO DAILY 05/21/18 10/24/18 Unknown History Metformin HCl 500 mg PO BID 05/21/18 10/24/18 Unknown History Rosuvastatin Calcium 10 mg PO DAILY 05/21/18 10/24/18 Unknown History Tamsulosin HCl 0.4 mg PO HS 05/21/18 10/24/18 Unknown History ED Physical Exam - General Limitations: No Limitations General appearance: alert, in no apparent distress - Head Head exam: Present: atraumatic, normocephalic - Eye Eye exam: Present: normal appearance. Absent: PERRL, EOMI - ENT ENT exam: Present: mucous membranes moist - Neck Neck exam: Present: normal inspection - Respiratory Respiratory exam: Present: rales. Absent: respiratory distress - Cardiovascular Cardiovascular Exam: Present: regular rate, normal rhythm. Absent: systolic murmur, diastolic murmur, rubs, gallop - GI/Abdominal GI/Abdominal exam: Present: soft, tenderness (diffusely tender to palpation), normal bowel sounds. Absent: distended - Rectal Rectal exam: Present: deferred - Extremities Exam Extremities exam: Present: normal inspection - Back Exam Back exam: Present: normal inspection - Neurological Exam Neurological exam: Present: alert, oriented X3, CN II-XII intact. Absent: motor sensory deficit - Psychiatric Psychiatric exam: Present: normal affect, normal mood - Skin Skin exam: Present: warm, dry, intact, normal color. Absent: rash ED Course Vital Signs 10/24/18 10/24/18 10/24/18 15:07 16:00 17:00 Temperature 97.9 F Pulse Rate 102 H 108 H 108 H Respiratory 20 16 16 Rate Blood Pressure 113/65 Blood Pressure 130/76 140/80 [Right] O2 Sat by Pulse 100 98 100 Oximetry 10/24/18 18:34 Temperature 97.8 F Pulse Rate 106 H Respiratory 18 Rate Blood Pressure Blood Pressure 127/85 [Right] O2 Sat by Pulse 100 Oximetry ED Medical Decision Making - Lab Data Result diagrams: 10/24/18 15:33 10/24/18 15:33 Lab Results 10/24/18 10/24/18 10/24/18 Range/Units 15:33 15:33 15:44 WBC 5.8 (4.5-11.0) K/mm3 RBC 2.99 L (3.65-5.03) M/mm3 Hgb 11.8 (11.8-15.2) gm/dl Hct 35.9 (35.5-45.6) % MCV 120 H (84-94) fl MCH 39 H (28-32) pg MCHC 33 (32-34) % RDW 15.8 H (13.2-15.2) % Plt Count 118 L (140-440) K/mm3 Lymph % (Auto) 16.4 (13.4-35.0) % [place] % (Auto) 8.9 H (0.0-7.3) % Eos % (Auto) 0.6 (0.0-4.3) % Baso % (Auto) 0.3 (0.0-1.8) % Lymph # 0.9 L (1.2-5.4) K/mm3 [place] # 0.5 (0.0-0.8) K/mm3 Eos # 0.0 (0.0-0.4) K/mm3 Baso # 0.0 (0.0-0.1) K/mm3 Seg Neutrophils % 73.8 H (40.0-70.0) % Seg Neutrophils # 4.2 (1.8-7.7) K/mm3 Sodium 144 (137-145) mmol/L Potassium 5.2 H (3.6-5.0) mmol/L Chloride 114.1 H (98-107) mmol/L Carbon Dioxide 15 L (22-30) mmol/L Anion Gap 20 mmol/L BUN 40 H (9-20) mg/dL Creatinine 1.9 H (0.8-1.5) mg/dL Estimated GFR 42 ml/min BUN/Creatinine Ratio 21 % Glucose 171 H (75-100) mg/dL Calcium 8.9 (8.4-10.2) mg/dL Total Creatine Kinase (55-170) units/L Troponin T 0.420 H* (0.00-0.029) ng/mL NT-Pro-B Natriuret Pep (0-900) pg/mL Triglycerides 65 (2-149) mg/dL Cholesterol 88 (50-199) mg/dL LDL Cholesterol Direct 36 L (50-130) mg/dL HDL Cholesterol 47 (40-59) mg/dL Cholesterol/HDL Ratio 1.87 % 10/24/18 Range/Units 15:44 WBC (4.5-11.0) K/mm3 RBC (3.65-5.03) M/mm3 Hgb (11.8-15.2) gm/dl Hct (35.5-45.6) % MCV (84-94) fl MCH (28-32) pg MCHC (32-34) % RDW (13.2-15.2) % Plt Count (140-440) K/mm3 Lymph % (Auto) (13.4-35.0) % [place] % (Auto) (0.0-7.3) % Eos % (Auto) (0.0-4.3) % Baso % (Auto) (0.0-1.8) % Lymph # (1.2-5.4) K/mm3 [place] # (0.0-0.8) K/mm3 Eos # (0.0-0.4) K/mm3 Baso # (0.0-0.1) K/mm3 Seg Neutrophils % (40.0-70.0) % Seg Neutrophils # (1.8-7.7) K/mm3 Sodium (137-145) mmol/L Potassium (3.6-5.0) mmol/L Chloride (98-107) mmol/L Carbon Dioxide (22-30) mmol/L Anion Gap mmol/L BUN (9-20) mg/dL Creatinine (0.8-1.5) mg/dL Estimated GFR ml/min BUN/Creatinine Ratio % Glucose (75-100) mg/dL Calcium (8.4-10.2) mg/dL Total Creatine Kinase 276 H (55-170) units/L Troponin T (0.00-0.029) ng/mL NT-Pro-B Natriuret Pep 61401 H (0-900) pg/mL Triglycerides (2-149) mg/dL Cholesterol (50-199) mg/dL LDL Cholesterol Direct (50-130) mg/dL HDL Cholesterol (40-59) mg/dL Cholesterol/HDL Ratio % - EKG Data -: EKG Interpreted by [place] EKG shows normal: sinus rhythm Rate: tachycardia - EKG Data Interpretation: LVH - Radiology Data Radiology results: report reviewed - Medical Decision Making Patient given IV lasix CT of the head done because the patient was found on the floor and he is unsure of hitting his head The patient's troponin is likely elevated secondary to the elevated BNP which is consistent with congestive heart failure and his renal insufficiency Critical Care Time: Yes Critical care time in (mins) excluding proc time.: 45 Critical care attestation.: If time is entered above; I have spent that time in minutes in the direct care of this critically ill patient, excluding procedure time. ED Disposition Clinical Impression: Acute CHF (congestive heart failure), Acute renal insufficiency Disposition: OP ADMIT IP TO THIS HOSP Is pt being admited?: Yes Does the pt Need Aspirin: No Condition: Fair Referrals: PRIMARY CARE, [Primary Care Provider] - 3-5 Days
--- NOTE | 2018-10-24 18:45 | XRay Report ---
CHEST 1 VIEW 10/24/2018 6:21 PM INDICATION / CLINICAL INFORMATION: rales. Shortness of breath for 2 days COMPARISON: None available. FINDINGS: SUPPORT DEVICES: None. HEART / MEDIASTINUM: Heart is mildly enlarged for AP portable technique. LUNGS / PLEURA: No acute airspace or interstitial disease. No significant pleural effusion. No pneumo thorax. ADDITIONAL FINDINGS: No significant additional findings. IMPRESSION: 1. Mild cardiomegaly but no acute pulmonary or pleural findings. Signer Name: Anuja Aden MD Signed: 10/24/2018 6:40 PM Workstation Name: [id number]
--- NOTE | 2018-10-24 19:03 | Cat Scan Report ---
CT ABDOMEN AND PELVIS WITHOUT CONTRAST INDICATION / CLINICAL INFORMATION: Abdominal pain. TECHNIQUE: Axial CT images were obtained through the abdomen and pelvis without IV contrast. All CT scans at [facility] location are performed using CT dose reduction for ALARA by means of automated exposure control. COMPARISON: None available. FINDINGS: LOWER CHEST: Tiny bilateral pleural effusions. Heart is moderately enlarged. LIVER: No significant abnormality. GALLBLADDER: Several ossified gallstones. No gallbladder thickening or inflammation. BILE DUCTS: No significant abnormality. PANCREAS: No significant abnormality. SPLEEN: No significant abnormality. ADRENALS: No significant abnormality. RIGHT KIDNEY and URETER: No significant abnormality. LEFT KIDNEY and URETER: No significant abnormality. STOMACH and SMALL BOWEL: No significant abnormality. COLON: Mild sigmoid diverticulosis without inflammation. APPENDIX: No significant abnormality. PERITONEUM: No free fluid. No free air. No fluid collection. LYMPH NODES: No significant adenopathy. AORTA and ARTERIES: Moderate atherosclerotic calcification without acute abnormality. IVC and VEINS: No significant abnormality. URINARY BLADDER: Bladder is obscured by streak artifact due to bilateral total hip arthroplasty. REPRODUCTIVE ORGANS: Metallic implants in the prostate. No acute abnormality noted. ADDITIONAL FINDINGS: Mild body wall edema. SKELETAL SYSTEM: Bilateral total hip arthroplasty. No acute skeletal abnormality. IMPRESSION: 1. No inflammatory process or bowel obstruction. 2. Mild cardiomegaly. 3. Small bladder pleural effusions and mild body wall edema could represent fluid imbalance. 4. Cholelithiasis. Signer Name: Anuja Aden MD Signed: 10/24/2018 6:58 PM Workstation Name: [id number]
--- NOTE | 2018-10-24 19:06 | Cat Scan Report ---
CT head/brain wo con INDICATION: Weakness. TECHNIQUE: Routine CT head without contrast. Sagittal and coronal reformatted images were obtained. A ll CT scans at this location are performed using CT dose reduction for ALARA by means of automated ex posure control. COMPARISON: CT scan from 05/22/2018 FINDINGS: BRAIN / INTRACRANIAL CONTENTS: External border zone infarction is seen in the right temporal occipita l border zone. This may be more recent. Encephalomalacia is seen in the right superior parietal lobul e with the dystrophic calcification. This was seen in the CT scan from 05/22/2018. Focal cortical isc hemia is seen in the right middle temporal gyrus. This was seen in the previous CT also. No acute hemorrhage, mass effect, midline shift, hydrocephalus, Extensive periventricular low densit y areas are seen due to microvascular faint angiopathy. Moderate cortical involution is seen. Mild hi ppocampal volume loss is seen bilaterally more on the left side. Pontine chronic ischemia seen. CRANIOCERVICAL JUNCTION: No significant abnormality. ORBITS: No significant abnormality of visualized orbits. SINUSES / MASTOIDS: No significant abnormality of the visualized paranasal sinuses or mastoid air wale ls. ADDITIONAL FINDINGS: None. IMPRESSION: External border zones: Ischemia in the right temporo-occipital region; this may be recent; no hemor rhage seen ; this was not seen in May 2018. Encephalomalacia in the right superior parietal lobule and in the right middle temporal gyrus. Signer Name: Valeria Bradford MD Signed: 10/24/2018 7:01 PM Workstation Name: [id number]
[2018-10-24] MEDS ORDERED: BABY ASPIRIN PO ONE (19:33)
--- NOTE | 2018-10-24 20:30 | History and Physical Report ---
History of Present Illness Chief complaint: confused History of present illness: 73 YO Male with HIV, COPD, DM, CVA, HTN, CaP, HLD, Nicotine Dependence presents to ED for evaluation. Pt is confused and lethargic and provides minimal history. Pt history taken from EMS and ED staff. As per staff, the patient was found down on the floor of his home by his son around 0300hrs. Pt reports feeling weak and subsequently waking up after several hours on the floor. EMS was notified by patient son later in the day, and was found to be in distress and transported to [facility]. Pt seen and evaluated in ED and found to have elevated troponin levels consistent with NSTEMI as well as CHF Decompensation, ARF, Acidosis, and Encephalopathy. Pt initiated on heparin drip and admitted to [facility]. No further history obtainable. Prior admission on 05/20/18. All listed medication reconciled at time of admission. Pt is lethargic but has a positive gag reflex, and in able to protect his airway. Past History Past Medical History: anemia, cancer, COPD, diabetes, HIV/AIDS, hypertension, hyperlipidemia, stroke Past Surgical History: total hip replacement Social history: smoking Family history: diabetes, hypertension Medications and Allergies Allergies Allergy/AdvReac Type Severity Reaction Status Date / Time No Known Allergies Allergy Unverified 03/29/16 00:43 Home Medications Medication Instructions Recorded Confirmed Last Taken Type Aspirin [Aspirin BABY CHEW TAB] 81 mg PO QDAY #30 tab.chew 11/15/17 10/24/18 Unknown Rx Abacavir/Lamivudine/Zidovudine 1 tab PO DAILY 05/21/18 10/24/18 Unknown History Amlodipine Besylate 10 mg PO QDAY 05/21/18 10/24/18 Unknown History Carvedilol 6.25 mg PO BID 05/21/18 10/24/18 Unknown History Isentress 400 mg PO Q12HR 05/21/18 10/24/18 Unknown History Levemir Flextouch 60 unit SUB-Q QHS 05/21/18 10/24/18 Unknown History Lisinopril 40 mg PO DAILY 05/21/18 10/24/18 Unknown History Metformin HCl 500 mg PO BID 05/21/18 10/24/18 Unknown History Rosuvastatin Calcium 10 mg PO DAILY 05/21/18 10/24/18 Unknown History Tamsulosin HCl 0.4 mg PO HS 05/21/18 10/24/18 Unknown History Exam - Constitutional Vitals: Temp Pulse Resp BP Pulse Ox 97.8 F 81 14 121/88 100 10/24/18 18:34 10/24/18 19:46 10/24/18 19:46 10/24/18 19:46 10/24/18 19:46 General appearance: Present: mild distress - EENT Eyes: Present: miosis ENT: hearing intact, clear oral mucosa - Neck Neck: Present: supple, normal ROM - Respiratory Respiratory effort: labored Respiratory: bilateral: rhonchi - Cardiovascular Heart Sounds: Present: S1 & S2. Absent: rub, click - Extremities Extremities: pulses symmetrical, No edema Extremity abnormal: edema - Abdominal General gastrointestinal: Present: soft, non-tender, non-distended, normal bowel sounds Male genitourinary: Present: normal - Integumentary Integumentary: Present: clear, dry, clammy, decreased turgor - Musculoskeletal Musculoskeletal: generalized weakness - Psychiatric Psychiatric: no appropriate mood/affect, no intact judgment & insight, no memory intact - Neurologic Neurologic: CNII-XII intact, no focal deficits, moves all extremities, no gait normal Results - Labs CBC & Chem 7: 10/24/18 15:33 10/24/18 15:33 Labs: Abnormal lab results 10/24/18 10/24/18 10/24/18 Range/Units 15:33 15:33 15:44 RBC 2.99 L (3.65-5.03) M/mm3 MCV 120 H (84-94) fl MCH 39 H (28-32) pg RDW 15.8 H (13.2-15.2) % Plt Count 118 L (140-440) K/mm3 [place] % (Auto) 8.9 H (0.0-7.3) % Lymph # 0.9 L (1.2-5.4) K/mm3 Seg Neutrophils % 73.8 H (40.0-70.0) % Potassium 5.2 H (3.6-5.0) mmol/L Chloride 114.1 H (98-107) mmol/L Carbon Dioxide 15 L (22-30) mmol/L BUN 40 H (9-20) mg/dL Creatinine 1.9 H (0.8-1.5) mg/dL Glucose 171 H (75-100) mg/dL Total Creatine Kinase (55-170) units/L Troponin T 0.420 H* (0.00-0.029) ng/mL NT-Pro-B Natriuret Pep (0-900) pg/mL LDL Cholesterol Direct 36 L (50-130) mg/dL 10/24/18 10/24/18 Range/Units 15:44 19:20 RBC (3.65-5.03) M/mm3 MCV (84-94) fl MCH (28-32) pg RDW (13.2-15.2) % Plt Count (140-440) K/mm3 [place] % (Auto) (0.0-7.3) % Lymph # (1.2-5.4) K/mm3 Seg Neutrophils % (40.0-70.0) % Potassium (3.6-5.0) mmol/L Chloride (98-107) mmol/L Carbon Dioxide (22-30) mmol/L BUN (9-20) mg/dL Creatinine (0.8-1.5) mg/dL Glucose (75-100) mg/dL Total Creatine Kinase 276 H (55-170) units/L Troponin T 0.507 H* D (0.00-0.029) ng/mL NT-Pro-B Natriuret Pep 92249 H (0-900) pg/mL LDL Cholesterol Direct (50-130) mg/dL Assessment and Plan - Patient Problems (1) NSTEMI (non-ST elevated myocardial infarction) Current Visit: Yes Status: Acute Plan to address problem: Cardiology consulted in ED, serial cardiac enzymes, ekg, telemetry, heparin drip, supportive care. (2) HIV (human immunodeficiency virus infection) Current Visit: Yes Status: Acute Qualifiers: HIV symptom status: unspecified Qualified Code(s): B20 - Human immunodefici ency virus [HIV] disease Plan to address problem: continue antiretroviral therapy, supportive care (3) Acidosis Current Visit: Yes Status: Acute Plan to address problem: Iv bicarbonate, supportive care, (4) Encephalopathy Current Visit: Yes Status: Acute Plan to address problem: CT Head, neuro check, aspiration precautions, seizure precautions (5) Acute CHF (congestive heart failure) Current Visit: Yes Status: Acute Qualifiers: Heart failure type: systolic Qualified Code(s): I50.21 - Acute systolic (congestive) heart failure Plan to address problem: Strict I/O, daily weight, afterload reduction, monitor uop q shift, supplemental oxygen, echo, (6) Acute renal insufficiency Current Visit: Yes Status: Acute Plan to address problem: monitor uop q shift, nephrology consulted in ED, urine electrolytes, strict I/O, monitor uop q shift, monitor fluid balance, monitor serum creatnine, repeat bmp (7) DVT prophylaxis Current Visit: Yes Status: Acute Plan to address problem: SCD to BLE while in bed, continue therapeutic anticoagualtion
[2018-10-24] MEDS ORDERED: SODIUM CHLORIDE FLUSH SYRINGE 10 ML IV PRN ×2 (20:42)
[2018-10-24] MEDS ORDERED: TYLENOL PO PRN (20:42)
[2018-10-24] MEDS ORDERED: PROVENTIL IH PRN (20:42)
[2018-10-24] MEDS ORDERED: ZOFRAN IV PRN (20:42)
[2018-10-24] MEDS ORDERED: D50W (25GM) Syringe IV PRN (20:53)
[2018-10-24] MEDS ORDERED: HEPARIN/ 0.45% NACL-25,000 UNIT/500 ML 25,000 UNIT/500 ML BAG IV SCH (21:00)
[2018-10-24] MEDS ORDERED: KIONEX PO ONE (21:04)
[2018-10-24] MEDS ORDERED: KIONEX ONE (21:13)
[2018-10-24] MEDS: ISENTRESS PO SCH (22:00)
[2018-10-24] MEDS: HumaLOG SUB-Q SCH (22:00)
[2018-10-24] MEDS: SODIUM CHLORIDE FLUSH SYRINGE 10 ML IV SCH (22:00)
[2018-10-24] MEDS ORDERED: ISENTRESS 400 MG PO SCH (22:00)
[2018-10-24] MEDS ORDERED: HEPARIN/ 0.45% NACL-25,000 UNIT/500 ML 25,000 UNIT/500 ML BAG ONE (23:29)
[2018-10-25 00:02] LABS: Amorphous Crystals,Urine Few; Bilirubin,Urine NEG (Negative); Blood,Urine NEG (Negative); Color,Urine Yellow (Yellow); Hyaline Casts,Urine 9 /LPF
[2018-10-25 00:03] LABS: Mucus,Urine FEW /HPF
[2018-10-25 00:13] LABS: Creatinine,Urine 137.8 mg/dL (0.1-20.0)
[2018-10-25 05:07] LABS: Basophils % (Auto) 0.4 % (0.0-1.8); Hematocrit 33.9 % (35.5-45.6); Hemoglobin 11.5 gm/dl (11.8-15.2); Lymphocytes % (Auto) 20.1 % (13.4-35.0); Mean Corpuscular HGB Conc 34 % (32-34); Mean Corpuscular Volume 116 fl (84-94); Monocytes # (Auto) 0.4 K/mm3 (0.0-0.8); Monocytes % (Auto) 9.2 % (0.0-7.3); Platelet Count 120 K/mm3 (140-440); Red Blood Count 2.94 M/mm3 (3.65-5.03); Red Cell Distribution Width 14.9 % (13.2-15.2)
[2018-10-25 05:49] LABS: Albumin 2.9 g/dL (3.9-5); Calcium 8.6 mg/dL (8.4-10.2)
[2018-10-25] MEDS: HumaLOG SUB-Q SCH ×5 (07:00→21:53)
[2018-10-25] MEDS ORDERED: NON-FORMULARY (Lisinopril 40 MG) PO SCH (10:00)
[2018-10-25] MEDS ORDERED: ROSUVASTATIN CALCIUM 10 MG PO SCH (10:00)
[2018-10-25] MEDS: SODIUM CHLORIDE FLUSH SYRINGE 10 ML IV SCH ×2 (10:00→21:38)
[2018-10-25] MEDS ORDERED: LAMIVUDINE PO SCH (10:00)
[2018-10-25] MEDS ORDERED: LASIX IV SCH (10:00)
[2018-10-25] MEDS ORDERED: ZESTRIL PO SCH (10:00)
[2018-10-25] MEDS ORDERED: ZIDOVUDINE PO SCH (10:00)
[2018-10-25] MEDS ORDERED: ABACAVIR PO SCH (10:00)
--- NOTE | 2018-10-25 10:42 | Consultation ---
History of Present Illness - Reason for Consult Consult date: 10/25/18 acute renal failure, chronic renal failure - History of Present Illness The patient is a 73 YO Male with history significant for HIV, COPD, DM, CVA, HTN, HLD, Nicotine Dependence and CKD who was brought into ED after he was found down on the floor at his home by his son. Pt is confused to provide any history and there was no family member at the bedside. In the ED he was found to have elevated troponin levels suggestive of NSTEMI, CHF Decompensation, CONNIE and Encephalopathy. Pt was started on heparin drip and admitted to ICU. His creatinine is 2 and Sodium level is 151. Nephrology was consulted for further evaluation. Past History Past Medical History: anemia, cancer, COPD, diabetes, HIV/AIDS, hypertension, hyperlipidemia, stroke Past Surgical History: total hip replacement Social history: smoking Family history: diabetes, hypertension Medications and Allergies Allergies Allergy/AdvReac Type Severity Reaction Status Date / Time No Known Allergies Allergy Unverified 03/29/16 00:43 Home Medications Medication Instructions Recorded Confirmed Last Taken Type Aspirin [Aspirin BABY CHEW TAB] 81 mg PO QDAY #30 tab.chew 11/15/17 10/24/18 Unknown Rx Abacavir/Lamivudine/Zidovudine 1 tab PO DAILY 05/21/18 10/24/18 Unknown History Amlodipine Besylate 10 mg PO QDAY 05/21/18 10/24/18 Unknown History Carvedilol 6.25 mg PO BID 05/21/18 10/24/18 Unknown History Isentress 400 mg PO Q12HR 05/21/18 10/24/18 Unknown History Levemir Flextouch 60 unit SUB-Q QHS 05/21/18 10/24/18 Unknown History Lisinopril 40 mg PO DAILY 05/21/18 10/24/18 Unknown History Metformin HCl 500 mg PO BID 05/21/18 10/24/18 Unknown History Rosuvastatin Calcium 10 mg PO DAILY 05/21/18 10/24/18 Unknown History Tamsulosin HCl 0.4 mg PO HS 05/21/18 10/24/18 Unknown History Active Meds: Active Medications Abacavir Sulfate (Ziagen) 300 mg PO DAILY KEN Acetaminophen (Tylenol) 650 mg PO Q4H PRN PRN Reason: Pain MILD(1-3)/Fever >100.5/SIMMONS Albuterol (Proventil) 2.5 mg IH Q4HRT PRN PRN Reason: Shortness Of Breath Aspirin (Baby Aspirin) 81 mg PO QDAY [facility] Atorvastatin Calcium (Lipitor) 20 mg PO DAILY [facility] Dextrose (D50w (25gm) Syringe) 50 ml IV PRN PRN PRN Reason: Hypoglycemia Furosemide (Lasix) 20 mg IV QDAY [facility] Heparin Sodium/Sodium Chloride (Heparin/ 0.45% Nacl-25,000 Unit/500 Ml) 25,000 unit in 500 mls @ 20 mls/hr IV TITRATE KEN; Protocol Last Titration: 10/25/18 05:54 Dose: 1,100 units/hr, 22 mls/hr Documented by: Insulin Human Lispro (Humalog) 0 unit SUB-Q ACHS [facility]; Protocol Last Admin: 10/24/18 22:00 Dose: 2 unit Documented by: Lamivudine (Epivir) 150 mg PO DAILY [facility] Ondansetron HCl (Zofran) 4 mg IV Q8H PRN PRN Reason: Nausea And Vomiting Raltegravir (Isentress) 400 mg PO Q12HR [facility] Last Admin: 10/24/18 22:00 Dose: 400 mg Documented by: Sodium Chloride (Sodium Chloride Flush Syringe 10 Ml) 10 ml IV BID [facility] Last Admin: 10/24/18 22:00 Dose: 10 ml Documented by: Sodium Chloride (Sodium Chloride Flush Syringe 10 Ml) 10 ml IV PRN PRN PRN Reason: LINE FLUSH Zidovudine (Retrovir) 300 mg PO DAILY [facility] Review of Systems ROS unobtainable: due to mental status Exam - Vital Signs Vital signs: Vital Signs Temp Pulse Resp BP Pulse Ox 97.9 F 102 H 20 113/65 100 10/24/18 15:07 10/24/18 15:07 10/24/18 15:07 10/24/18 15:07 10/24/18 15:07 - General Appearance General appearance: well-developed, well-nourished, appears stated age, other (no distress) EENT: ATNC, PERRL Neck: Present: neck supple, trachea midline Respiratory: Clear to Ascultation Heart: regular, S1S2, no murmurs Gastrointestinal: Present: normoactive bowel sounds. Absent: tenderness, distended Integumentary: no rash, warm and dry Neurologic: other (non-verbal, not following any command) Musculoskeletal: Present: other (no edema) Results - Lab Results 10/25/18 04:56 10/25/18 04:56 Most recent lab results Calcium 8.6 mg/dL (8.4-10.2) 10/25/18 04:56 137.8 mg/dL (0.1-20.0) H 10/24/18 22:18 40 mmol/L 10/24/18 22:18 Assessment and Plan 1. Chronci kidney disease stage 3: Renal function is likely at his baseline. His creatinine was 2.8 about 5 months ago. Monitor renal function. Avoid nephrotoxic agents. Meds dosage based on GFR. 2. FEN: Hyperkalemia, improved. Metabolic acidosis, monitor. Hypernatremia, stop Lasix. Monitor lytes. 3. Elevated Troponin: ?NSTEMI. Followed by Cards. 4. Suspected CHF: Seen by Cards. 5. HIV. 6. DM type 2. 7. HTN: Monitor BP.
[2018-10-25] MEDS: BABY ASPIRIN PO SCH (11:07)
[2018-10-25] MEDS: EPIVIR PO SCH (11:14)
[2018-10-25] MEDS: ISENTRESS PO SCH ×2 (11:14→21:37)
[2018-10-25] MEDS: ZIAGEN PO SCH (11:16)
[2018-10-25] MEDS: RETROVIR PO SCH (11:20)
--- NOTE | 2018-10-25 11:34 | Consultation ---
History of Present Illness Consult date: 10/25/18 Consult reason: elevated troponin History of present illness: This is a 73-year old male with multiple medical problems who is admitted after he was found on the floor, unresponsive, by a family member. Patient is unable to give history surrounding this event. Initial labs revealed multiple metabolic abnormalities. Head CT scan reports ischemia in the right temporo-occipital region. Finding are new when compared to prior study done May 2018. No evidence of hemorrhage. A cardiac consultation has been requested for elevated troponin. Patient is a poor historian but denies a prior cardiac history and denies prior cardiac workup. Patient denies chest pain, denies unusual shortness of breath and denies palpitations. Chest x-ray is negative. 12-lead ECG is sinus rhythm, no acute ischemic changes. Past History Past Medical History: anemia, cancer, COPD, diabetes, HIV/AIDS, hypertension, hyperlipidemia, stroke Past Surgical History: total hip replacement Social history: smoking Family history: diabetes, hypertension Medications and Allergies Allergies Allergy/AdvReac Type Severity Reaction Status Date / Time No Known Allergies Allergy Unverified 03/29/16 00:43 Home Medications Medication Instructions Recorded Confirmed Last Taken Type Aspirin [Aspirin BABY CHEW TAB] 81 mg PO QDAY #30 tab.chew 11/15/17 10/24/18 Unknown Rx Abacavir/Lamivudine/Zidovudine 1 tab PO DAILY 05/21/18 10/24/18 Unknown History Amlodipine Besylate 10 mg PO QDAY 05/21/18 10/24/18 Unknown History Carvedilol 6.25 mg PO BID 05/21/18 10/24/18 Unknown History Isentress 400 mg PO Q12HR 05/21/18 10/24/18 Unknown History Levemir Flextouch 60 unit SUB-Q QHS 05/21/18 10/24/18 Unknown History Lisinopril 40 mg PO DAILY 05/21/18 10/24/18 Unknown History Metformin HCl 500 mg PO BID 05/21/18 10/24/18 Unknown History Rosuvastatin Calcium 10 mg PO DAILY 05/21/18 10/24/18 Unknown History Tamsulosin HCl 0.4 mg PO HS 05/21/18 10/24/18 Unknown History Active Meds: Active Medications Abacavir Sulfate (Ziagen) 300 mg PO DAILY KEN Acetaminophen (Tylenol) 650 mg PO Q4H PRN PRN Reason: Pain MILD(1-3)/Fever >100.5/SIMMONS Albuterol (Proventil) 2.5 mg IH Q4HRT PRN PRN Reason: Shortness Of Breath Aspirin (Baby Aspirin) 81 mg PO QDAY [facility] Last Admin: 10/25/18 11:07 Dose: 81 mg Documented by: Atorvastatin Calcium (Lipitor) 20 mg PO DAILY [facility] Last Admin: 10/25/18 11:07 Dose: 20 mg Documented by: Dextrose (D50w (25gm) Syringe) 50 ml IV PRN PRN PRN Reason: Hypoglycemia Furosemide (Lasix) 20 mg IV QDAY [facility] Last Admin: 10/25/18 11:07 Dose: 20 mg Documented by: Heparin Sodium/Sodium Chloride (Heparin/ 0.45% Nacl-25,000 Unit/500 Ml) 25,000 unit in 500 mls @ 20 mls/hr IV TITRATE [facility]; Protocol Last Titration: 10/25/18 05:54 Dose: 1,100 units/hr, 22 mls/hr Documented by: Insulin Human Lispro (Humalog) 0 unit SUB-Q ACHS [facility]; Protocol Last Admin: 10/24/18 22:00 Dose: 2 unit Documented by: Lamivudine (Epivir) 150 mg PO DAILY [facility] Last Admin: 10/25/18 11:14 Dose: 150 mg Documented by: Ondansetron HCl (Zofran) 4 mg IV Q8H PRN PRN Reason: Nausea And Vomiting Raltegravir (Isentress) 400 mg PO Q12HR [facility] Last Admin: 10/25/18 11:14 Dose: 400 mg Documented by: Sodium Chloride (Sodium Chloride Flush Syringe 10 Ml) 10 ml IV BID [facility] Last Admin: 10/24/18 22:00 Dose: 10 ml Documented by: Sodium Chloride (Sodium Chloride Flush Syringe 10 Ml) 10 ml IV PRN PRN PRN Reason: LINE FLUSH Zidovudine (Retrovir) 300 mg PO DAILY [facility] Physical Examination Vital Signs Temp Pulse Resp BP Pulse Ox 97.9 F 102 H 20 113/65 100 10/24/18 15:07 10/24/18 15:07 10/24/18 15:07 10/24/18 15:07 10/24/18 15:07 General appearance: no acute distress HEENT: Positive: PERRL Neck: Positive: trachea midline Cardiac: Positive: Reg Rate and Rhythm, Gallop Lungs: Positive: Decreased Breath Sounds Neuro: Positive: Grossly Intact Extremities: Absent: edema Results 10/25/18 04:56 10/25/18 04:56 Cardiac Enzymes 10/25/18 Range/Units 04:56 AST 72 H (5-40) units/L Lipids 10/24/18 Range/Units 15:44 Triglycerides 65 (2-149) mg/dL Cholesterol 88 (50-199) mg/dL HDL Cholesterol 47 (40-59) mg/dL Cholesterol/HDL Ratio 1.87 % CBC 10/24/18 10/25/18 Range/Units 15:33 04:56 WBC 5.8 4.8 (4.5-11.0) K/mm3 RBC 2.99 L 2.94 L (3.65-5.03) M/mm3 Hgb 11.8 11.5 L (11.8-15.2) gm/dl Hct 35.9 33.9 L (35.5-45.6) % Plt Count 118 L 120 L (140-440) K/mm3 Lymph # 0.9 L 1.0 L (1.2-5.4) K/mm3 [place] # 0.5 0.4 (0.0-0.8) K/mm3 Eos # 0.0 0.0 (0.0-0.4) K/mm3 Baso # 0.0 0.0 (0.0-0.1) K/mm3 Comprehensive Metabolic Panel 10/24/18 10/25/18 Range/Units 15:33 04:56 Sodium 144 151 H (137-145) mmol/L Potassium 5.2 H 4.5 (3.6-5.0) mmol/L Chloride 114.1 H 116.2 H (98-107) mmol/L Carbon Dioxide 15 L 19 L (22-30) mmol/L BUN 40 H 49 H (9-20) mg/dL Creatinine 1.9 H 2.0 H (0.8-1.5) mg/dL Glucose 171 H 145 H (75-100) mg/dL Calcium 8.9 8.6 (8.4-10.2) mg/dL AST 72 H (5-40) units/L ALT 73 H (7-56) units/L Alkaline Phosphatase 282 H (35-129) units/L Total Protein 5.9 L (6.3-8.2) g/dL Albumin 2.9 L (3.9-5) g/dL
--- NOTE | 2018-10-25 14:42 | Progress Note ---
Assessment and Plan /Possible acute CVA - CT head showed possible new infarct which was not seen on prior CT on May 2018 -Continue aspirin and statin - We'll obtain MRI when patient is clinically more stable / NSTEMI (non-ST elevated myocardial infarction) type 2 Likely from acute renal failure Cardiology consulted in ED, follow 2-D echo, medical management Stop heparin drip / HIV (human immunodeficiency virus infection) continue antiretroviral therapy, supportive care / Encephalopathy Likely metabolic versus acute CVA Continue to monitor clinically with supportive care / Acute CHF (congestive heart failure) Strict I/O, daily weight, afterload reduction, monitor uop q shift, supplemental oxygen, follow echo results / Acute renal insufficiency monitor uop q shift, nephrology consulted in ED, urine electrolytes, strict I/O, monitor uop q shift, monitor fluid balance, monitor serum creatnine, /Hypernatremia Likely from dehydration, increased by mouth free water intake / DVT prophylaxis SCD to BLE while in bed, The high probability of a clinically significant, sudden or life threatening deterioration of the system(s) required my full and direct attention, intervention and personal management. The aggregate critical care time was 34 minutes. This time is in addition to time spent performing reported procedures but includes the following: [x] Data Review and interpretation [x] Patient assessment and monitoring of vital signs [x] Documentation [x] Medication orders and management Brief history: This is a 73-year old male with multiple medical problems who is admitted after he was found on the floor, unresponsive, by a family member. Patient is unable to give history surrounding this event. Initial labs revealed multiple metabolic abnormalities including elevated creatinine, elevated troponin and also hyponatremia. Head CT scan reports ischemia in the right temporo-occipital region. Finding are new when compared to prior study done May 2018. No evidence of hemorrhage. Patient was admitted for further evaluation and management. Physical exam: GENERAL: well-developed and well-nourished -[place] Citizen male lying on bed appeared to be in no discomfort. HEENT: Normocephalic. Atraumatic. No conjunctival congestion or icterus. Patient has moist mucous membranes. NECK: Supple. Trachea midline. CHEST/LUNGS: Clear to auscultated bilaterally, breathing nonlabored. No wheezes crackles or rhonchi. HEART/CARDIOVASCULAR: Regular in rate and rhythm. S1 and S2 positive. ABDOMEN: Abdomen is soft, nontender. Patient has normal bowel sounds. SKIN: There is no rash. Warm and dry. NEURO: No focal motor deficit. Follows command. Appears confused MUSCULOSKELETAL: No joint effusion or tenderness. EXTRIMITY: No edema, no cyanosis or clubbing. PSYCH: Agitated. Subjective Date of service: 10/25/18 Interval history: Patient seen and examined Patient seen and examined. Medical records and medication list reviewed. No acute event overnight noted by the RN. Patient denies any chest pain or difficulty breathing. Patient moving all his extremities He wants to eat, placed on restraint as he became agitated Discussed plan of care at bedside with patient. Objective - Constitutional Vitals: Vital Signs - 12hr 10/25/18 10/25/18 10/25/18 02:50 03:00 03:10 Temperature Pulse Rate 105 H 105 H 82 Pulse Rate [ Apical] Respiratory 13 17 19 Rate Blood Pressure 130/92 130/92 121/87 O2 Sat by Pulse 100 98 100 Oximetry 10/25/18 10/25/18 10/25/18 03:20 03:30 03:40 Temperature Pulse Rate 108 H 76 84 Pulse Rate [ Apical] Respiratory 22 13 18 Rate Blood Pressure 121/87 125/88 125/88 O2 Sat by Pulse 100 100 100 Oximetry 10/25/18 10/25/18 10/25/18 03:46 03:50 04:00 Temperature 98.8 F Pulse Rate 113 H 81 Pulse Rate [ Apical] Respiratory 17 22 Rate Blood Pressure 125/88 132/88 O2 Sat by Pulse 100 98 Oximetry 10/25/18 10/25/18 10/25/18 04:10 04:20 04:30 Temperature Pulse Rate 80 81 77 Pulse Rate [ Apical] Respiratory 23 27 H 19 Rate Blood Pressure 132/88 132/88 130/76 O2 Sat by Pulse 100 100 97 Oximetry 10/25/18 10/25/18 10/25/18 04:40 04:50 05:00 Temperature Pulse Rate 77 75 77 Pulse Rate [ Apical] Respiratory 25 H 14 18 Rate Blood Pressure 130/76 130/76 124/77 O2 Sat by Pulse 100 100 97 Oximetry 10/25/18 10/25/18 10/25/18 05:10 05:20 05:30 Temperature Pulse Rate 76 83 82 Pulse Rate [ Apical] Respiratory 19 22 20 Rate Blood Pressure 124/77 124/77 124/77 O2 Sat by Pulse 100 97 100 Oximetry 10/25/18 10/25/18 10/25/18 05:40 05:50 06:00 Temperature Pulse Rate 83 80 82 Pulse Rate [ Apical] Respiratory 20 24 23 Rate Blood Pressure 123/76 123/76 122/74 O2 Sat by Pulse 100 100 100 Oximetry 10/25/18 10/25/18 10/25/18 06:10 06:20 06:30 Temperature Pulse Rate 83 81 109 H Pulse Rate [ Apical] Respiratory 20 21 21 Rate Blood Pressure 122/74 122/74 129/91 O2 Sat by Pulse 100 100 100 Oximetry 10/25/18 10/25/18 10/25/18 06:33 06:40 06:50 Temperature Pulse Rate 80 80 Pulse Rate [ 110 H Apical] Respiratory 16 17 21 Rate Blood Pressure 129/91 129/91 O2 Sat by Pulse 100 100 100 Oximetry 10/25/18 10/25/18 10/25/18 07:00 07:11 07:21 Temperature Pulse Rate 79 78 82 Pulse Rate [ Apical] Respiratory 16 19 26 H Rate Blood Pressure 130/82 130/82 O2 Sat by Pulse 100 100 100 Oximetry 10/25/18 10/25/18 10/25/18 07:31 07:41 07:51 Temperature Pulse Rate 82 84 108 H Pulse Rate [ Apical] Respiratory 21 20 21 Rate Blood Pressure 130/89 130/89 130/89 O2 Sat by Pulse 100 100 100 Oximetry 10/25/18 10/25/18 10/25/18 08:00 08:11 08:15 Temperature 97.6 F Pulse Rate 108 H 109 H Pulse Rate [ Apical] Respiratory 22 24 Rate Blood Pressure 131/91 131/91 O2 Sat by Pulse 100 100 99 Oximetry 10/25/18 10/25/18 10/25/18 08:21 08:30 08:41 Temperature Pulse Rate 107 H 107 H 106 H Pulse Rate [ Apical] Respiratory 16 23 21 Rate Blood Pressure 131/91 126/94 126/94 O2 Sat by Pulse 100 100 100 Oximetry 10/25/18 10/25/18 10/25/18 08:51 09:00 09:11 Temperature Pulse Rate 106 H 106 H 106 H Pulse Rate [ Apical] Respiratory 23 18 16 Rate Blood Pressure 126/94 134/88 134/88 O2 Sat by Pulse 100 100 99 Oximetry 10/25/18 10/25/18 10/25/18 09:21 09:31 09:41 Temperature Pulse Rate 81 80 81 Pulse Rate [ Apical] Respiratory 14 16 15 Rate Blood Pressure 134/88 134/88 134/88 O2 Sat by Pulse 100 99 100 Oximetry 10/25/18 10/25/18 10/25/18 09:51 10:00 10:11 Temperature Pulse Rate 79 109 H 109 H Pulse Rate [ Apical] Respiratory 18 18 17 Rate Blood Pressure 134/88 136/89 136/89 O2 Sat by Pulse 100 99 100 Oximetry 10/25/18 10/25/18 10/25/18 10:21 10:31 10:41 Temperature Pulse Rate 110 H 107 H 107 H Pulse Rate [ Apical] Respiratory 18 17 17 Rate Blood Pressure 136/89 136/89 136/89 O2 Sat by Pulse 100 100 100 Oximetry 10/25/18 10/25/18 10/25/18 10:51 11:00 11:11 Temperature Pulse Rate 108 H 108 H 108 H Pulse Rate [ Apical] Respiratory 17 18 19 Rate Blood Pressure 136/89 129/90 129/90 O2 Sat by Pulse 100 98 100 Oximetry 10/25/18 10/25/18 10/25/18 11:21 11:22 11:31 Temperature Pulse Rate 109 H 111 H Pulse Rate [ Apical] Respiratory 25 H 23 Rate Blood Pressure 129/90 129/90 O2 Sat by Pulse 100 99 99 Oximetry 10/25/18 10/25/18 10/25/18 11:41 11:51 12:00 Temperature 97.3 F L Pulse Rate 110 H 94 H Pulse Rate [ Apical] Respiratory 17 18 Rate Blood Pressure 129/90 129/90 O2 Sat by Pulse 100 100 Oximetry 10/25/18 10/25/18 10/25/18 12:01 12:11 12:21 Temperature Pulse Rate 90 114 H 114 H Pulse Rate [ Apical] Respiratory 17 20 20 Rate Blood Pressure 116/92 116/92 116/92 O2 Sat by Pulse 100 100 100 Oximetry 10/25/18 10/25/18 10/25/18 12:31 12:41 12:51 Temperature Pulse Rate 81 117 H 115 H Pulse Rate [ Apical] Respiratory 24 21 23 Rate Blood Pressure 116/92 116/92 116/92 O2 Sat by Pulse 100 98 95 Oximetry 07/25/19 07/25/19 07/25/19 13:01 13:11 13:21 Temperature Pulse Rate 115 H 76 75 Pulse Rate [ Apical] Respiratory 19 18 16 Rate Blood Pressure 116/92 122/95 122/95 O2 Sat by Pulse 99 97 97 Oximetry 10/25/18 10/25/18 10/25/18 13:31 13:41 13:51 Temperature Pulse Rate 117 H 117 H 119 H Pulse Rate [ Apical] Respiratory 19 20 27 H Rate Blood Pressure 122/95 122/95 122/95 O2 Sat by Pulse 98 98 98 Oximetry 10/25/18 10/25/18 10/25/18 14:01 14:11 14:21 Temperature Pulse Rate 120 H 121 H 122 H Pulse Rate [ Apical] Respiratory 14 24 21 Rate Blood Pressure 141/99 122/95 122/95 O2 Sat by Pulse 97 99 97 Oximetry 10/25/18 14:31 Temperature Pulse Rate 120 H Pulse Rate [ Apical] Respiratory 22 Rate Blood Pressure 122/95 O2 Sat by Pulse 97 Oximetry - Labs CBC & Chem 7: 10/26/18 04:34 10/27/18 04:02 Labs: Abnormal lab results 10/24/18 10/24/18 10/24/18 Range/Units 15:33 15:33 15:44 RBC 2.99 L (3.65-5.03) M/mm3 Hgb (11.8-15.2) gm/dl Hct (35.5-45.6) % MCV 120 H (84-94) fl MCH 39 H (28-32) pg RDW 15.8 H (13.2-15.2) % Plt Count 118 L (140-440) K/mm3 [place] % (Auto) 8.9 H (0.0-7.3) % Lymph # 0.9 L (1.2-5.4) K/mm3 Seg Neutrophils % 73.8 H (40.0-70.0) % Heparin Anti-Xa Level (0.3-0.7) U.I./ml Sodium (137-145) mmol/L Potassium 5.2 H (3.6-5.0) mmol/L Chloride 114.1 H (98-107) mmol/L Carbon Dioxide 15 L (22-30) mmol/L BUN 40 H (9-20) mg/dL Creatinine 1.9 H (0.8-1.5) mg/dL Glucose 171 H (75-100) mg/dL POC Glucose (70-105) AST (5-40) units/L ALT (7-56) units/L Alkaline Phosphatase (35-129) units/L Total Creatine Kinase (55-170) units/L Troponin T 0.420 H* (0.00-0.029) ng/mL NT-Pro-B Natriuret Pep (0-900) pg/mL Total Protein (6.3-8.2) g/dL Albumin (3.9-5) g/dL LDL Cholesterol Direct 36 L (50-130) mg/dL Urine Creatinine (0.1-20.0) mg/dL 10/24/18 10/24/18 10/24/18 Range/Units 15:44 19:20 22:18 RBC (3.65-5.03) M/mm3 Hgb (11.8-15.2) gm/dl Hct (35.5-45.6) % MCV (84-94) fl MCH (28-32) pg RDW (13.2-15.2) % Plt Count (140-440) K/mm3 [place] % (Auto) (0.0-7.3) % Lymph # (1.2-5.4) K/mm3 Seg Neutrophils % (40.0-70.0) % Heparin Anti-Xa Level (0.3-0.7) U.I./ml Sodium (137-145) mmol/L Potassium (3.6-5.0) mmol/L Chloride (98-107) mmol/L Carbon Dioxide (22-30) mmol/L BUN (9-20) mg/dL Creatinine (0.8-1.5) mg/dL Glucose (75-100) mg/dL POC Glucose (70-105) AST (5-40) units/L ALT (7-56) units/L Alkaline Phosphatase (35-129) units/L Total Creatine Kinase 276 H (55-170) units/L Troponin T 0.507 H* D (0.00-0.029) ng/mL NT-Pro-B Natriuret Pep 53017 H (0-900) pg/mL Total Protein (6.3-8.2) g/dL Albumin (3.9-5) g/dL LDL Cholesterol Direct (50-130) mg/dL Urine Creatinine 137.8 H (0.1-20.0) mg/dL 10/24/18 10/24/18 10/24/18 Range/Units 23:13 23:38 23:44 RBC (3.65-5.03) M/mm3 Hgb (11.8-15.2) gm/dl Hct (35.5-45.6) % MCV (84-94) fl MCH (28-32) pg RDW (13.2-15.2) % Plt Count (140-440) K/mm3 [place] % (Auto) (0.0-7.3) % Lymph # (1.2-5.4) K/mm3 Seg Neutrophils % (40.0-70.0) % Heparin Anti-Xa Level (0.3-0.7) U.I./ml Sodium (137-145) mmol/L Potassium (3.6-5.0) mmol/L Chloride (98-107) mmol/L Carbon Dioxide (22-30) mmol/L BUN (9-20) mg/dL Creatinine (0.8-1.5) mg/dL Glucose (75-100) mg/dL POC Glucose 159 H 161 H (70-105) AST (5-40) units/L ALT (7-56) units/L Alkaline Phosphatase (35-129) units/L Total Creatine Kinase (55-170) units/L Troponin T 0.522 H* (0.00-0.029) ng/mL NT-Pro-B Natriuret Pep (0-900) pg/mL Total Protein (6.3-8.2) g/dL Albumin (3.9-5) g/dL LDL Cholesterol Direct (50-130) mg/dL Urine Creatinine (0.1-20.0) mg/dL 10/25/18 10/25/18 10/25/18 Range/Units 04:56 04:56 04:56 RBC 2.94 L (3.65-5.03) M/mm3 Hgb 11.5 L (11.8-15.2) gm/dl Hct 33.9 L (35.5-45.6) % MCV 116 H (84-94) fl MCH 39 H (28-32) pg RDW (13.2-15.2) % Plt Count 120 L (140-440) K/mm3 [place] % (Auto) 9.2 H (0.0-7.3) % Lymph # 1.0 L (1.2-5.4) K/mm3 Seg Neutrophils % (40.0-70.0) % Heparin Anti-Xa Level (0.3-0.7) U.I./ml Sodium 151 H (137-145) mmol/L Potassium (3.6-5.0) mmol/L Chloride 116.2 H (98-107) mmol/L Carbon Dioxide 19 L (22-30) mmol/L BUN 49 H (9-20) mg/dL Creatinine 2.0 H (0.8-1.5) mg/dL Glucose 145 H (75-100) mg/dL POC Glucose (70-105) AST 72 H (5-40) units/L ALT 73 H (7-56) units/L Alkaline Phosphatase 282 H (35-129) units/L Total Creatine Kinase (55-170) units/L Troponin T 0.493 H* (0.00-0.029) ng/mL NT-Pro-B Natriuret Pep (0-900) pg/mL Total Protein 5.9 L (6.3-8.2) g/dL Albumin 2.9 L (3.9-5) g/dL LDL Cholesterol Direct (50-130) mg/dL Urine Creatinine (0.1-20.0) mg/dL 10/25/18 10/25/18 10/25/18 Range/Units 04:56 05:51 12:12 RBC (3.65-5.03) M/mm3 Hgb (11.8-15.2) gm/dl Hct (35.5-45.6) % MCV (84-94) fl MCH (28-32) pg RDW (13.2-15.2) % Plt Count (140-440) K/mm3 [place] % (Auto) (0.0-7.3) % Lymph # (1.2-5.4) K/mm3 Seg Neutrophils % (40.0-70.0) % Heparin Anti-Xa Level 0.25 L (0.3-0.7) U.I./ml Sodium (137-145) mmol/L Potassium (3.6-5.0) mmol/L Chloride (98-107) mmol/L Carbon Dioxide (22-30) mmol/L BUN (9-20) mg/dL Creatinine (0.8-1.5) mg/dL Glucose (75-100) mg/dL POC Glucose 153 H 178 H (70-105) AST (5-40) units/L ALT (7-56) units/L Alkaline Phosphatase (35-129) units/L Total Creatine Kinase (55-170) units/L Troponin T (0.00-0.029) ng/mL NT-Pro-B Natriuret Pep (0-900) pg/mL Total Protein (6.3-8.2) g/dL Albumin (3.9-5) g/dL LDL Cholesterol Direct (50-130) mg/dL Urine Creatinine (0.1-20.0) mg/dL
[2018-10-25] MEDS: LOVENOX SUB-Q SCH (21:38)
[2018-10-26 05:32] LABS: Basophils % (Auto) 0.3 % (0.0-1.8); Eosinophils % (Auto) 0.7 % (0.0-4.3); Hematocrit 36.1 % (35.5-45.6); Hemoglobin 12.2 gm/dl (11.8-15.2); Lymphocytes % (Auto) 20.5 % (13.4-35.0); Mean Corpuscular HGB Conc 34 % (32-34); Monocytes # (Auto) 0.5 K/mm3 (0.0-0.8); Platelet Count 151 K/mm3 (140-440); Red Blood Count 3.13 M/mm3 (3.65-5.03); Red Cell Distribution Width 15.3 % (13.2-15.2)
[2018-10-26 05:47] LABS: Calcium 8.7 mg/dL (8.4-10.2)
[2018-10-26 06:03] LABS: Mean Corpuscular Volume 115 fl (84-94)
[2018-10-26] MEDS: HumaLOG SUB-Q SCH ×4 (08:10→21:46)
[2018-10-26] MEDS: RETROVIR PO SCH (09:25)
[2018-10-26] MEDS: BABY ASPIRIN PO SCH (09:25)
[2018-10-26] MEDS: ISENTRESS PO SCH ×2 (09:25→22:24)
[2018-10-26] MEDS: ZIAGEN PO SCH (09:26)
[2018-10-26] MEDS: SODIUM CHLORIDE FLUSH SYRINGE 10 ML IV SCH ×2 (09:27→21:47)
[2018-10-26] MEDS: EPIVIR PO SCH (09:34)
--- NOTE | 2018-10-26 09:53 | Progress Note ---
Assessment and Plan 1. Chronci kidney disease stage 3: Renal function is likely at his baseline. His creatinine was 2.8 about 5 months ago. Monitor renal function. Avoid nephrotoxic agents. Meds dosage based on GFR. 2. FEN: Hyperkalemia, improved. Metabolic acidosis, monitor. Hypernatremia, encourage PO fluids, talked to nurse. Monitor lytes. 3. Elevated Troponin: ?NSTEMI. Followed by Cards. 4. Suspected CHF: Seen by Cards. 5. HIV. 6. DM type 2. 7. HTN: Monitor BP. Subjective Date of service: 10/26/18 Interval history: Patient was seen and examined at the bedside. Objective - Vital Signs Vital signs: Vital Signs - 12hr 10/25/18 10/25/18 10/25/18 22:00 22:11 22:20 Temperature Pulse Rate 113 H 110 H 116 H Respiratory 27 H 24 19 Rate Blood Pressure 113/86 113/86 108/79 O2 Sat by Pulse 98 97 96 Oximetry 10/25/18 10/25/18 10/25/18 22:31 22:41 22:51 Temperature Pulse Rate 115 H 86 116 H Respiratory 25 H 23 20 Rate Blood Pressure 113/86 113/86 113/86 O2 Sat by Pulse 98 98 98 Oximetry 10/25/18 10/25/18 10/25/18 23:00 23:11 23:18 Temperature 97.8 F Pulse Rate 117 H 118 H Respiratory 24 22 Rate Blood Pressure 117/87 117/87 O2 Sat by Pulse 96 97 Oximetry 10/25/18 10/25/18 10/25/18 23:21 23:31 23:41 Temperature Pulse Rate 117 H 116 H 118 H Respiratory 26 H 22 22 Rate Blood Pressure 117/87 117/87 117/87 O2 Sat by Pulse 98 96 83 L Oximetry 10/25/18 10/26/18 10/26/18 23:51 00:01 00:11 Temperature Pulse Rate 115 H 116 H 116 H Respiratory 25 H 23 20 Rate Blood Pressure 117/87 117/87 117/87 O2 Sat by Pulse 98 99 99 Oximetry 10/26/18 10/26/18 10/26/18 00:13 00:21 00:31 Temperature Pulse Rate 112 H 114 H 115 H Respiratory 21 10 L 22 Rate Blood Pressure 117/87 117/87 117/87 O2 Sat by Pulse 100 98 100 Oximetry 10/26/18 10/26/18 10/26/18 00:38 00:41 00:51 Temperature Pulse Rate 112 H 113 H Respiratory 17 16 17 Rate Blood Pressure 117/87 117/87 O2 Sat by Pulse 99 100 98 Oximetry 10/26/18 10/26/18 10/26/18 01:00 01:11 01:21 Temperature Pulse Rate 108 H 112 H 112 H Respiratory 17 19 23 Rate Blood Pressure 113/86 100/24 100/24 O2 Sat by Pulse 99 99 99 Oximetry 10/26/18 10/26/18 10/26/18 01:31 01:41 01:51 Temperature Pulse Rate 109 H 110 H 111 H Respiratory 19 20 28 H Rate Blood Pressure 100/24 100/24 100/24 O2 Sat by Pulse 100 98 96 Oximetry 10/26/18 10/26/18 10/26/18 02:01 02:11 02:21 Temperature Pulse Rate 109 H 111 H 112 H Respiratory 26 H 22 22 Rate Blood Pressure 100/24 100/24 100/24 O2 Sat by Pulse 99 100 98 Oximetry 10/26/18 10/26/18 10/26/18 02:31 02:41 02:51 Temperature Pulse Rate 114 H 110 H 113 H Respiratory 23 24 13 Rate Blood Pressure 100/24 100/24 100/24 O2 Sat by Pulse 99 100 100 Oximetry 10/26/18 10/26/18 10/26/18 03:01 03:11 03:19 Temperature 98.4 F Pulse Rate 111 H 106 H Respiratory 22 21 Rate Blood Pressure 100/24 100/24 O2 Sat by Pulse 98 100 Oximetry 10/26/18 10/26/18 10/26/18 03:21 03:31 03:41 Temperature Pulse Rate 111 H 110 H 109 H Respiratory 11 L 21 13 Rate Blood Pressure 100/24 116/80 116/80 O2 Sat by Pulse 96 100 99 Oximetry 10/26/18 10/26/18 10/26/18 03:51 04:01 04:05 Temperature Pulse Rate 108 H 110 H Respiratory 18 17 17 Rate Blood Pressure 116/80 106/78 O2 Sat by Pulse 100 99 99 Oximetry 10/26/18 10/26/18 10/26/18 04:11 04:21 04:31 Temperature Pulse Rate 109 H 110 H 108 H Respiratory 18 21 12 Rate Blood Pressure 106/78 106/78 106/78 O2 Sat by Pulse 100 100 100 Oximetry 10/26/18 10/26/18 10/26/18 04:41 04:51 05:01 Temperature Pulse Rate 110 H 110 H 112 H Respiratory 19 16 14 Rate Blood Pressure 106/78 106/78 40/13 O2 Sat by Pulse 100 100 100 Oximetry 10/26/18 10/26/18 10/26/18 05:11 05:21 05:31 Temperature Pulse Rate 115 H 87 87 Respiratory 19 17 22 Rate Blood Pressure 40/13 40/13 40/13 O2 Sat by Pulse 98 99 98 Oximetry 10/26/18 10/26/18 10/26/18 05:41 05:51 06:01 Temperature Pulse Rate 110 H 76 107 H Respiratory 17 17 17 Rate Blood Pressure 40/13 40/13 113/72 O2 Sat by Pulse 97 95 92 Oximetry 10/26/18 10/26/18 10/26/18 06:11 06:21 06:31 Temperature Pulse Rate 106 H 116 H 113 H Respiratory 20 17 20 Rate Blood Pressure 113/72 113/72 113/72 O2 Sat by Pulse 95 85 96 Oximetry 10/26/18 10/26/18 10/26/18 06:40 06:51 07:00 Temperature Pulse Rate 109 H 74 108 H Respiratory 20 17 20 Rate Blood Pressure 113/72 113/72 119/80 O2 Sat by Pulse 94 100 98 Oximetry 10/26/18 10/26/18 10/26/18 07:11 07:21 07:31 Temperature Pulse Rate 72 76 77 Respiratory 21 17 17 Rate Blood Pressure 119/80 119/80 119/80 O2 Sat by Pulse 100 98 95 Oximetry 10/26/18 10/26/18 10/26/18 07:41 07:51 08:01 Temperature Pulse Rate 76 113 H 113 H Respiratory 19 16 20 Rate Blood Pressure 119/80 119/80 138/66 O2 Sat by Pulse 100 97 99 Oximetry 10/26/18 10/26/18 10/26/18 08:11 08:21 08:24 Temperature Pulse Rate 114 H 91 H Respiratory 21 16 Rate Blood Pressure 138/66 138/66 O2 Sat by Pulse 100 100 97 Oximetry 10/26/18 10/26/18 08:31 08:41 Temperature Pulse Rate 75 113 H Respiratory 19 20 Rate Blood Pressure 138/66 138/66 O2 Sat by Pulse 96 98 Oximetry - General Appearance General appearance: well-developed, well-nourished, appears stated age, other (no distress) EENT: ATNC, PERRL, mucous membranes dry, hearing intact Neck: supple Respiratory: Present: Clear to Ascultation Cardiology: S1S2, no murmurs Gastrointestinal: normoactive bowel sounds, no tenderness, no distended Integumentary: no rash, warm and dry Neurologic: no focal deficit, confused, disoriented Musculoskeletal: other (no edema) Psychiatric: cooperative - Lab 10/26/18 04:34 10/26/18 04:34 Most recent lab results Calcium 8.7 mg/dL (8.4-10.2) 10/26/18 04:34 137.8 mg/dL (0.1-20.0) H 10/24/18 22:18 40 mmol/L 10/24/18 22:18 Medications & Allergies - Medications Allergies/Adverse Reactions: Allergies No Known Allergies Allergy (Unverified 03/29/16 00:43) Home Medications: Home Medications Medication Instructions Recorded Confirmed Last Taken Type Aspirin [Aspirin BABY CHEW TAB] 81 mg PO QDAY #30 tab.chew 11/15/17 10/24/18 Unknown Rx Abacavir/Lamivudine/Zidovudine 1 tab PO DAILY 05/21/18 10/24/18 Unknown History Amlodipine Besylate 10 mg PO QDAY 05/21/18 10/24/18 Unknown History Carvedilol 6.25 mg PO BID 05/21/18 10/24/18 Unknown History Isentress 400 mg PO Q12HR 05/21/18 10/24/18 Unknown History Levemir Flextouch 60 unit SUB-Q QHS 05/21/18 10/24/18 Unknown History Lisinopril 40 mg PO DAILY 05/21/18 10/24/18 Unknown History Metformin HCl 500 mg PO BID 05/21/18 10/24/18 Unknown History Rosuvastatin Calcium 10 mg PO DAILY 05/21/18 10/24/18 Unknown History Tamsulosin HCl 0.4 mg PO HS 05/21/18 10/24/18 Unknown History Active Medications: Generic Name Dose Route Start Last Admin Trade Name Freq PRN Reason Stop Dose Admin Abacavir Sulfate 300 mg 10/25/18 10:00 10/26/18 09:26 Ziagen PO 300 mg DAILY KEN Administration Acetaminophen 650 mg 10/24/18 20:42 Tylenol PO Q4H PRN Pain MILD(1-3)/Fever >100.5/SIMMONS Albuterol 2.5 mg 10/24/18 20:42 Proventil IH Q4HRT PRN Shortness Of Breath Aspirin 81 mg 10/25/18 10:00 10/26/18 09:25 Baby Aspirin PO 81 mg QDAY KEN Administration Atorvastatin Calcium 20 mg 10/25/18 10:00 10/26/18 09:26 Lipitor PO 20 mg DAILY KEN Administration Dextrose 50 ml 10/24/18 20:53 D50w (25gm) Syringe IV PRN PRN Hypoglycemia Enoxaparin Sodium 30 mg 10/25/18 22:00 10/25/18 21:38 Lovenox SUB-Q 30 mg QDAY@2200 KEN Administration Insulin Human Lispro 0 unit 10/24/18 22:00 10/26/18 08:10 Humalog SUB-Q 2 unit ACHS KEN Administration Protocol Lamivudine 150 mg 10/25/18 10:00 10/26/18 09:34 Epivir PO 150 mg DAILY KEN Administration Ondansetron HCl 4 mg 10/24/18 20:42 Zofran IV Q8H PRN Nausea And Vomiting Raltegravir 400 mg 10/24/18 22:00 10/26/18 09:25 Isentress PO 400 mg Q12HR KEN Administration Sodium Chloride 10 ml 10/24/18 22:00 10/26/18 09:27 Sodium Chloride Flush Syringe 10 Ml IV 10 ml BID KEN Administration Sodium Chloride 10 ml 10/24/18 20:42 Sodium Chloride Flush Syringe 10 Ml IV PRN PRN LINE FLUSH Zidovudine 300 mg 10/25/18 10:00 10/26/18 09:25 Retrovir PO 300 mg DAILY KEN Administration
--- NOTE | 2018-10-26 14:06 | Progress Note ---
Assessment and Plan /Possible acute CVA - CT head showed possible new infarct which was not seen on prior CT on May 2018 -Continue aspirin and statin - We'll obtain MRI when patient is clinically more stable / NSTEMI (non-ST elevated myocardial infarction) type 2 Likely from acute renal failure Cardiology consulted in ED, medical management / HIV (human immunodeficiency virus infection) continue antiretroviral therapy, supportive care / Encephalopathy Likely metabolic versus acute CVA Continue to monitor clinically with supportive care / Acute CHFrEF (congestive heart failure) 15-20% Strict I/O, daily weight, afterload reduction, monitor uop q shift, supplemental oxygen, / Acute renal insufficiency monitor uop q shift, nephrology consulted in ED, urine electrolytes, strict I/O, monitor uop q shift, monitor fluid balance, monitor serum creatnine, /Hypernatremia Likely from dehydration, increased by mouth free water intake / DVT prophylaxis SCD to BLE while in bed, Transfer to tele Brief history: This is a 73-year old male with multiple medical problems who is admitted after he was found on the floor, unresponsive, by a family member. Patient is unable to give history surrounding this event. Initial labs revealed multiple metabolic abnormalities including elevated creatinine, elevated troponin and also hyponatremia. Head CT scan reports ischemia in the right temporo-occipital region. Finding are new when compared to prior study done May 2018. No evidence of hemorrhage. Patient was admitted for further evaluation and management. Physical exam: GENERAL: well-developed and well-nourished -Cym[place] male lying on bed appeared to be in no discomfort. HEENT: Normocephalic. Atraumatic. No conjunctival congestion or icterus. Patient has moist mucous membranes. NECK: Supple. Trachea midline. CHEST/LUNGS: Clear to auscultated bilaterally, breathing nonlabored. No wheezes crackles or rhonchi. HEART/CARDIOVASCULAR: Regular in rate and rhythm. S1 and S2 positive. ABDOMEN: Abdomen is soft, nontender. Patient has normal bowel sounds. SKIN: There is no rash. Warm and dry. NEURO: No focal motor deficit. Follows command. Appears confused MUSCULOSKELETAL: No joint effusion or tenderness. EXTRIMITY: No edema, no cyanosis or clubbing. PSYCH: Agitated. Subjective Date of service: 10/26/18 Interval history: Patient seen and examined. Medical records and medication list reviewed. No acute event overnight noted by the RN. Patient denies any chest pain or difficulty breathing. Patient moving all his extremities remained restrained Discussed plan of care at bedside with patient. Objective - Constitutional Vitals: Vital Signs - 12hr 10/26/18 10/26/18 10/26/18 02:11 02:21 02:31 Temperature Pulse Rate 111 H 112 H 114 H Respiratory 22 22 23 Rate Blood Pressure 100/24 100/24 100/24 O2 Sat by Pulse 100 98 99 Oximetry 10/26/18 10/26/18 10/26/18 02:41 02:51 03:01 Temperature Pulse Rate 110 H 113 H 111 H Respiratory 24 13 22 Rate Blood Pressure 100/24 100/24 100/24 O2 Sat by Pulse 100 100 98 Oximetry 10/26/18 10/26/18 10/26/18 03:11 03:19 03:21 Temperature 98.4 F Pulse Rate 106 H 111 H Respiratory 21 11 L Rate Blood Pressure 100/24 100/24 O2 Sat by Pulse 100 96 Oximetry 10/26/18 10/26/18 10/26/18 03:31 03:41 03:51 Temperature Pulse Rate 110 H 109 H 108 H Respiratory 21 13 18 Rate Blood Pressure 116/80 116/80 116/80 O2 Sat by Pulse 100 99 100 Oximetry 10/26/18 10/26/18 10/26/18 04:01 04:05 04:11 Temperature Pulse Rate 110 H 109 H Respiratory 17 17 18 Rate Blood Pressure 106/78 106/78 O2 Sat by Pulse 99 99 100 Oximetry 10/26/18 10/26/18 10/26/18 04:21 04:31 04:41 Temperature Pulse Rate 110 H 108 H 110 H Respiratory 21 12 19 Rate Blood Pressure 106/78 106/78 106/78 O2 Sat by Pulse 100 100 100 Oximetry 10/26/18 10/26/18 10/26/18 04:51 05:01 05:11 Temperature Pulse Rate 110 H 112 H 115 H Respiratory 16 14 19 Rate Blood Pressure 106/78 40/13 40/13 O2 Sat by Pulse 100 100 98 Oximetry 10/26/18 10/26/18 10/26/18 05:21 05:31 05:41 Temperature Pulse Rate 87 87 110 H Respiratory 17 22 17 Rate Blood Pressure 40/13 40/13 40/13 O2 Sat by Pulse 99 98 97 Oximetry 10/26/18 10/26/1819 05:51 06:01 06:11 Temperature Pulse Rate 76 107 H 106 H Respiratory 17 17 20 Rate Blood Pressure 40/13 113/72 113/72 O2 Sat by Pulse 95 92 95 Oximetry 10/26/18 10/26/18 10/26/18 06:21 06:31 06:40 Temperature Pulse Rate 116 H 113 H 109 H Respiratory 17 20 20 Rate Blood Pressure 113/72 113/72 113/72 O2 Sat by Pulse 85 96 94 Oximetry 10/26/18 10/26/18 10/26/18 06:51 07:00 07:11 Temperature Pulse Rate 74 108 H 72 Respiratory 17 20 21 Rate Blood Pressure 113/72 119/80 119/80 O2 Sat by Pulse 100 98 100 Oximetry 10/26/18 10/26/18 10/26/18 07:21 07:31 07:41 Temperature Pulse Rate 76 77 76 Respiratory 17 17 19 Rate Blood Pressure 119/80 119/80 119/80 O2 Sat by Pulse 98 95 100 Oximetry 10/26/18 10/26/18 10/26/18 07:51 08:00 08:01 Temperature 98.4 F Pulse Rate 113 H 113 H Respiratory 16 20 Rate Blood Pressure 119/80 138/66 O2 Sat by Pulse 97 99 Oximetry 10/26/18 10/26/18 10/26/18 08:11 08:21 08:24 Temperature Pulse Rate 114 H 91 H Respiratory 21 16 Rate Blood Pressure 138/66 138/66 O2 Sat by Pulse 100 100 97 Oximetry 10/26/18 10/26/18 10/26/18 08:31 08:41 08:51 Temperature Pulse Rate 75 113 H 114 H Respiratory 19 20 17 Rate Blood Pressure 138/66 138/66 138/66 O2 Sat by Pulse 96 98 99 Oximetry 10/26/18 10/26/18 10/26/18 09:01 09:11 09:21 Temperature Pulse Rate 81 117 H 112 H Respiratory 26 H 26 H 25 H Rate Blood Pressure 138/66 138/66 143/103 O2 Sat by Pulse 100 97 100 Oximetry 10/26/18 10/26/18 10/26/18 09:31 09:41 09:51 Temperature Pulse Rate 119 H 114 H 116 H Respiratory 19 19 22 Rate Blood Pressure 143/103 143/103 143/103 O2 Sat by Pulse 100 99 99 Oximetry 10/26/18 10/26/18 10/26/18 10:00 10:11 10:21 Temperature Pulse Rate 115 H 97 H Respiratory 17 15 Rate Blood Pressure 121/73 121/73 121/73 O2 Sat by Pulse 97 99 93 Oximetry 10/26/18 10/26/18 10/26/18 10:31 10:41 10:51 Temperature Pulse Rate 90 83 112 H Respiratory 9 L 19 21 Rate Blood Pressure 121/73 121/73 121/73 O2 Sat by Pulse 97 98 96 Oximetry 10/26/18 10/26/18 10/26/18 11:00 11:11 11:21 Temperature Pulse Rate 112 H 111 H 70 Respiratory 22 30 H 15 Rate Blood Pressure 113/77 121/73 121/73 O2 Sat by Pulse 100 95 95 Oximetry 10/26/18 10/26/18 10/26/18 11:31 11:41 11:51 Temperature Pulse Rate 113 H 109 H 111 H Respiratory 11 L 22 20 Rate Blood Pressure 121/73 121/73 121/73 O2 Sat by Pulse 93 97 98 Oximetry 10/26/18 10/26/18 10/26/18 12:00 12:01 12:11 Temperature 98.7 F Pulse Rate 74 109 H Respiratory 16 21 Rate Blood Pressure 100/66 100/66 O2 Sat by Pulse 96 94 Oximetry 10/26/18 10/26/18 10/26/18 12:21 12:31 12:41 Temperature Pulse Rate 109 H 111 H 110 H Respiratory 22 15 24 Rate Blood Pressure 100/66 100/66 100/66 O2 Sat by Pulse 98 98 100 Oximetry 10/26/18 10/26/18 12:51 13:01 Temperature Pulse Rate 113 H 81 Respiratory 15 16 Rate Blood Pressure 100/66 100/66 O2 Sat by Pulse 81 L Oximetry - Labs CBC & Chem 7: 10/26/18 04:34 10/27/18 04:02 Labs: Abnormal lab results 10/25/18 10/25/18 10/26/18 Range/Units 17:39 21:42 04:34 RBC 3.13 L (3.65-5.03) M/mm3 MCV 115 H (84-94) fl MCH 39 H (28-32) pg RDW 15.3 H (13.2-15.2) % [place] % (Auto) 11.0 H (0.0-7.3) % Lymph # 1.0 L (1.2-5.4) K/mm3 Sodium (137-145) mmol/L Chloride (98-107) mmol/L Carbon Dioxide (22-30) mmol/L BUN (9-20) mg/dL Creatinine (0.8-1.5) mg/dL Glucose (75-100) mg/dL POC Glucose 240 H 206 H (70-105) 10/26/18 10/26/18 10/26/18 Range/Units 04:34 08:18 12:20 RBC (3.65-5.03) M/mm3 MCV (84-94) fl MCH (28-32) pg RDW (13.2-15.2) % [place] % (Auto) (0.0-7.3) % Lymph # (1.2-5.4) K/mm3 Sodium 152 H (137-145) mmol/L Chloride 118.2 H (98-107) mmol/L Carbon Dioxide 20 L (22-30) mmol/L BUN 55 H (9-20) mg/dL Creatinine 2.1 H (0.8-1.5) mg/dL Glucose 146 H (75-100) mg/dL POC Glucose 158 H 221 H (70-105)
--- NOTE | 2018-10-26 14:30 | Progress Note ---
Assessment and Plan Altered mental status Acute CVA on CT brain Hypernatremia Non-specific troponin suggesting type II MICardiomyopathy, EF 15-20% Moderate to severe MR and TR Renal failure HIV Tele is showing sinus tachycardia Recommendations: Due to multiple comorbidities, recommend conservative medical therapy for underlying CMP There is no evidence of fluid overload on exam Start low dose toprol XL once daily Subjective Date of service: 10/26/18 Principal diagnosis: Cardiomyopathy Interval history: Patient is lying in bed, no distress Patient denies chest pain or shortness of breath Objective Vital Signs Temp Pulse Resp BP Pulse Ox 10/26/18 13:01 81 16 100/66 10/26/18 12:51 113 H 15 100/66 81 L 10/26/18 12:41 110 H 24 100/66 100 10/26/18 12:31 111 H 15 100/66 98 10/26/18 12:21 109 H 22 100/66 98 10/26/18 12:11 109 H 21 100/66 94 10/26/18 12:01 74 16 100/66 96 10/26/18 12:00 98.7 F 10/26/18 11:51 111 H 20 121/73 98 10/26/18 11:41 109 H 22 121/73 97 10/26/18 11:31 113 H 11 L 121/73 93 10/26/18 11:21 70 15 121/73 95 10/26/18 11:11 111 H 30 H 121/73 95 10/26/18 11:00 112 H 22 113/77 100 10/26/18 10:51 112 H 21 121/73 96 10/26/18 10:41 83 19 121/73 98 10/26/18 10:31 90 9 L 121/73 97 10/26/18 10:21 121/73 93 10/26/18 10:11 97 H 15 121/73 99 10/26/18 10:00 115 H 17 121/73 97 10/26/18 09:51 116 H 22 143/103 99 10/26/18 09:41 114 H 19 143/103 99 10/26/18 09:31 119 H 19 143/103 100 10/26/18 09:21 112 H 25 H 143/103 100 10/26/18 09:11 117 H 26 H 138/66 97 10/26/18 09:01 81 26 H 138/66 100 10/26/18 08:51 114 H 17 138/66 99 10/26/18 08:41 113 H 20 138/66 98 10/26/18 08:31 75 19 138/66 96 10/26/18 08:24 97 10/26/18 08:21 91 H 16 138/66 100 10/26/18 08:11 114 H 21 138/66 100 10/26/18 08:01 113 H 20 138/66 99 10/26/18 08:00 98.4 F 10/26/18 07:51 113 H 16 119/80 97 10/26/18 07:41 76 19 119/80 100 10/26/18 07:31 77 17 119/80 95 10/26/18 07:21 76 17 119/80 98 10/26/18 07:11 72 21 119/80 100 10/26/18 07:00 108 H 20 119/80 98 10/26/18 06:51 74 17 113/72 100 10/26/18 06:40 109 H 20 113/72 94 10/26/18 06:31 113 H 20 113/72 96 10/26/18 06:21 116 H 17 113/72 85 10/26/18 06:11 106 H 20 113/72 95 10/26/18 06:01 107 H 17 113/72 92 10/26/18 05:51 76 17 40/13 95 10/26/18 05:41 110 H 17 40/13 97 10/26/18 05:31 87 22 40/13 98 10/26/18 05:21 87 17 40/13 99 10/26/18 05:11 115 H 19 40/13 98 10/26/18 05:01 112 H 14 40/13 100 10/26/18 04:51 110 H 16 106/78 100 10/26/18 04:41 110 H 19 106/78 100 10/26/18 04:31 108 H 12 106/78 100 10/26/18 04:21 110 H 21 106/78 100 10/26/18 04:11 109 H 18 106/78 100 10/26/18 04:05 17 99 10/26/18 04:01 110 H 17 106/78 99 10/26/18 03:51 108 H 18 116/80 100 10/26/18 03:41 109 H 13 116/80 99 10/26/18 03:31 110 H 21 116/80 100 10/26/18 03:21 111 H 11 L 100/24 96 10/26/18 03:19 98.4 F 10/26/18 03:11 106 H 21 100/24 100 10/26/18 03:01 111 H 22 100/24 98 10/26/18 02:51 113 H 13 100/24 100 10/26/18 02:41 110 H 24 100/24 100 10/26/18 02:31 114 H 23 100/24 99 10/26/18 02:21 112 H 22 100/24 98 10/26/18 02:11 111 H 22 100/24 100 10/26/18 02:01 109 H 26 H 100/24 99 10/26/18 01:51 111 H 28 H 100/24 96 10/26/18 01:41 110 H 20 100/24 98 10/26/18 01:31 109 H 19 100/24 100 10/26/18 01:21 112 H 23 100/24 99 10/26/18 01:11 112 H 19 100/24 99 10/26/18 01:00 108 H 17 113/86 99 10/26/18 00:51 113 H 17 117/87 98 10/26/18 00:41 112 H 16 117/87 100 10/26/18 00:38 17 99 10/26/18 00:31 115 H 22 117/87 100 10/26/18 00:21 114 H 10 L 117/87 98 10/26/18 00:13 112 H 21 117/87 100 10/26/18 00:11 116 H 20 117/87 99 10/26/18 00:01 116 H 23 117/87 99 10/25/18 23:51 115 H 25 H 117/87 98 10/25/18 23:41 118 H 22 117/87 83 L 10/25/18 23:31 116 H 22 117/87 96 10/25/18 23:21 117 H 26 H 117/87 98 10/25/18 23:18 97.8 F 10/25/18 23:11 118 H 22 117/87 97 10/25/18 23:00 117 H 24 117/87 96 10/25/18 22:51 116 H 20 113/86 98 10/25/18 22:41 86 23 113/86 98 10/25/18 22:31 115 H 25 H 113/86 98 10/25/18 22:20 116 H 19 108/79 96 10/25/18 22:11 110 H 24 113/86 97 10/25/18 22:00 113 H 27 H 113/86 98 10/25/18 21:51 113 H 14 108/79 100 10/25/18 21:45 110 H 17 99 10/25/18 21:41 114 H 20 108/79 98 10/25/18 21:31 116 H 22 108/79 96 10/25/18 21:21 109 H 19 108/79 99 10/25/18 21:11 98 H 17 124/86 100 10/25/18 21:01 87 20 124/86 99 10/25/18 20:50 111 H 22 124/86 99 10/25/18 20:41 108 H 22 124/86 100 10/25/18 20:31 109 H 22 124/86 100 10/25/18 20:28 99 10/25/18 20:21 111 H 21 124/86 99 10/25/18 20:11 112 H 23 124/86 99 10/25/18 20:00 97.2 F L 113 H 21 124/86 100 10/25/18 19:51 113 H 21 141/105 97 10/25/18 19:41 113 H 18 141/105 100 10/25/18 19:31 114 H 19 141/105 98 10/25/18 19:21 114 H 18 141/105 100 10/25/18 19:11 89 20 141/105 99 10/25/18 19:01 115 H 24 141/105 100 10/25/18 18:51 116 H 15 143/105 100 10/25/18 18:41 143/105 96 10/25/18 18:31 116 H 21 143/105 100 10/25/18 18:21 117 H 22 143/105 100 10/25/18 18:11 117 H 18 143/105 100 10/25/18 18:00 119 H 21 143/105 100 10/25/18 17:51 119 H 23 145/100 99 10/25/18 17:41 118 H 24 145/100 98 10/25/18 17:31 115 H 19 145/100 99 10/25/18 17:21 116 H 19 145/100 99 10/25/18 17:11 117 H 22 145/100 99 10/25/18 17:00 119 H 13 145/100 99 10/25/18 16:51 118 H 15 153/97 100 10/25/18 16:41 119 H 22 153/97 98 10/25/18 16:31 118 H 22 153/97 96 10/25/18 16:21 116 H 22 153/97 10/25/18 16:11 119 H 23 153/97 99 10/25/18 16:00 119 H 24 153/97 99 10/25/18 15:51 119 H 24 142/100 10/25/18 15:41 120 H 29 H 142/100 10/25/18 15:31 123 H 24 141/99 100 10/25/18 15:21 120 H 22 141/99 100 10/25/18 15:11 121 H 20 141/99 10/25/18 15:01 122 H 23 142/100 98 10/25/18 14:51 122 H 21 122/95 96 10/25/18 14:41 123 H 18 122/95 96 10/25/18 14:31 120 H 22 122/95 97 - Physical Examination HEENT: Positive: PERRL Neck: Positive: neck supple, trachea midline Cardiac: Positive: Tachycardia Lungs: Positive: Normal Exam Neuro: Positive: Grossly Intact Extremities: Absent: edema - Labs and Meds CBC 10/26/18 Range/Units 04:34 WBC 4.7 (4.5-11.0) K/mm3 RBC 3.13 L (3.65-5.03) M/mm3 Hgb 12.2 (11.8-15.2) gm/dl Hct 36.1 (35.5-45.6) % Plt Count 151 (140-440) K/mm3 Lymph # 1.0 L (1.2-5.4) K/mm3 [place] # 0.5 (0.0-0.8) K/mm3 Eos # 0.0 (0.0-0.4) K/mm3 Baso # 0.0 (0.0-0.1) K/mm3 Comprehensive Metabolic Panel 10/26/18 Range/Units 04:34 Sodium 152 H (137-145) mmol/L Potassium 4.3 (3.6-5.0) mmol/L Chloride 118.2 H (98-107) mmol/L Carbon Dioxide 20 L (22-30) mmol/L BUN 55 H (9-20) mg/dL Creatinine 2.1 H (0.8-1.5) mg/dL Glucose 146 H (75-100) mg/dL Calcium 8.7 (8.4-10.2) mg/dL
[2018-10-26] MEDS: LOVENOX SUB-Q SCH (21:46)
[2018-10-27 06:08] LABS: Calcium 8.6 mg/dL (8.4-10.2)
[2018-10-27] MEDS: ISENTRESS PO SCH ×3 (07:30→21:08)
[2018-10-27] MEDS: HumaLOG SUB-Q SCH ×4 (08:41→21:28)
--- NOTE | 2018-10-27 10:14 | Progress Note ---
Assessment and Plan Altered mental status Acute CVA on CT brain Hypernatremia Non-specific troponin suggesting type II MICardiomyopathy, EF 15-20% Moderate to severe MR and TR Renal failure HIV Tele is showing sinus tachycardia Recommendations: Due to multiple comorbidities, recommend conservative medical therapy for underlying CMP There is no evidence of fluid overload on exam Continue low dose toprol XL once daily Start low dose hydralazine for after load reduction No ACEi due to underlying renal failure Subjective Date of service: 10/27/18 Principal diagnosis: Cardiomyopathy Interval history: No events overnight No CV complaints No events on tele Objective Vital Signs Temp Pulse Pulse Resp BP Pulse Ox 10/27/18 09:12 111 H 18 122/97 100 10/27/18 07:18 97.9 F 107 H 18 128/87 100 10/27/18 04:19 98.0 F 67 20 114/72 90 10/26/18 23:39 98.0 F 65 20 109/68 100 10/26/18 20:35 76 10/26/18 20:24 108 H 2 L 100 10/26/18 20:19 100 10/26/18 19:17 98.0 F 18 118/80 10/26/18 19:02 108/68 10/26/18 18:40 108/68 10/26/18 17:20 108/68 10/26/18 17:03 98.2 F 118 H 18 131/96 100 10/26/18 16:21 108/68 10/26/18 15:52 108/68 93 10/26/18 15:15 112 H 20 108/68 88 10/26/18 15:01 114 H 15 108/68 100 10/26/18 14:45 84 25 H 108/68 97 10/26/18 14:31 83 24 108/68 98 10/26/18 14:21 102 H 20 108/68 99 10/26/18 14:11 111 H 20 108/68 98 10/26/18 14:01 108 H 20 68/37 75 L 10/26/18 13:51 114 H 13 123/88 10/26/18 13:41 110 H 22 123/88 10/26/18 13:31 113 H 25 H 123/88 10/26/18 13:21 116 H 20 123/88 10/26/18 13:11 114 H 18 123/88 10/26/18 13:01 81 16 100/66 10/26/18 12:51 113 H 15 100/66 81 L 10/26/18 12:41 110 H 24 100/66 100 10/26/18 12:31 111 H 15 100/66 98 10/26/18 12:21 109 H 22 100/66 98 10/26/18 12:11 109 H 21 100/66 94 10/26/18 12:01 74 16 100/66 96 10/26/18 12:00 98.7 F 10/26/18 11:51 111 H 20 121/73 98 10/26/18 11:41 109 H 22 121/73 97 10/26/18 11:31 113 H 11 L 121/73 93 10/26/18 11:21 70 15 121/73 95 10/26/18 11:11 111 H 30 H 121/73 95 10/26/18 11:00 112 H 22 113/77 100 10/26/18 10:51 112 H 21 121/73 96 10/26/18 10:41 83 19 121/73 98 10/26/18 10:31 90 9 L 121/73 97 10/26/18 10:21 121/73 93 - Physical Examination HEENT: Positive: PERRL Neck: Positive: neck supple, trachea midline Cardiac: Positive: Reg Rate and Rhythm Lungs: Positive: Normal Exam Neuro: Positive: Grossly Intact Extremities: Absent: edema - Labs and Meds Comprehensive Metabolic Panel 10/27/18 Range/Units 04:02 Sodium 150 H (137-145) mmol/L Potassium 4.1 (3.6-5.0) mmol/L Chloride 116.5 H (98-107) mmol/L Carbon Dioxide 22 (22-30) mmol/L BUN 53 H (9-20) mg/dL Creatinine 1.9 H (0.8-1.5) mg/dL Glucose 157 H (75-100) mg/dL Calcium 8.6 (8.4-10.2) mg/dL
--- NOTE | 2018-10-27 10:26 | Progress Note ---
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 García Objective - Vital Sign Vital Signs - 12hr 10/26/18 10/27/18 10/27/18 23:39 04:19 07:18 Temperature 98.0 F 98.0 F 97.9 F Pulse Rate 65 67 107 H Respiratory 20 20 18 Rate Blood Pressure 109/68 114/72 128/87 O2 Sat by Pulse 100 90 100 Oximetry 10/27/18 09:12 Temperature Pulse Rate 111 H Respiratory 18 Rate Blood Pressure 122/97 O2 Sat by Pulse 100 Oximetry - Laboratory Findings CBC and BMP: 10/26/18 04:34 10/27/18 04:02 Abnormal Lab Findings: Abnormal Labs 10/24/18 10/24/18 10/24/18 15:33 15:33 15:44 RBC 2.99 L Hgb Hct MCV 120 H MCH 39 H RDW 15.8 H Plt Count 118 L [place] % (Auto) 8.9 H Lymph # 0.9 L Seg Neutrophils % 73.8 H Heparin Anti-Xa Level Sodium Potassium 5.2 H Chloride 114.1 H Carbon Dioxide 15 L BUN 40 H Creatinine 1.9 H Glucose 171 H POC Glucose Magnesium AST ALT Alkaline Phosphatase Total Creatine Kinase Troponin T 0.420 H* NT-Pro-B Natriuret Pep Total Protein Albumin LDL Cholesterol Direct 36 L Urine Creatinine 10/24/18 10/24/18 10/24/18 15:44 19:20 22:18 RBC Hgb Hct MCV MCH RDW Plt Count [place] % (Auto) Lymph # Seg Neutrophils % Heparin Anti-Xa Level Sodium Potassium Chloride Carbon Dioxide BUN Creatinine Glucose POC Glucose Magnesium AST ALT Alkaline Phosphatase Total Creatine Kinase 276 H Troponin T 0.507 H* D NT-Pro-B Natriuret Pep 34484 H Total Protein Albumin LDL Cholesterol Direct Urine Creatinine 137.8 H 10/24/18 10/24/18 10/24/18 23:13 23:38 23:44 RBC Hgb Hct MCV MCH RDW Plt Count [place] % (Auto) Lymph # Seg Neutrophils % Heparin Anti-Xa Level Sodium Potassium Chloride Carbon Dioxide BUN Creatinine Glucose POC Glucose 159 H 161 H Magnesium AST ALT Alkaline Phosphatase Total Creatine Kinase Troponin T 0.522 H* NT-Pro-B Natriuret Pep Total Protein Albumin LDL Cholesterol Direct Urine Creatinine 10/25/18 10/25/18 10/25/18 04:56 04:56 04:56 RBC 2.94 L Hgb 11.5 L Hct 33.9 L MCV 116 H MCH 39 H RDW Plt Count 120 L [place] % (Auto) 9.2 H Lymph # 1.0 L Seg Neutrophils % Heparin Anti-Xa Level Sodium 151 H Potassium Chloride 116.2 H Carbon Dioxide 19 L BUN 49 H Creatinine 2.0 H Glucose 145 H POC Glucose Magnesium AST 72 H ALT 73 H Alkaline Phosphatase 282 H Total Creatine Kinase Troponin T 0.493 H* NT-Pro-B Natriuret Pep Total Protein 5.9 L Albumin 2.9 L LDL Cholesterol Direct Urine Creatinine 10/25/18 10/25/18 10/25/18 04:56 05:51 12:12 RBC Hgb Hct MCV MCH RDW Plt Count [place] % (Auto) Lymph # Seg Neutrophils % Heparin Anti-Xa Level 0.25 L Sodium Potassium Chloride Carbon Dioxide BUN Creatinine Glucose POC Glucose 153 H 178 H Magnesium AST ALT Alkaline Phosphatase Total Creatine Kinase Troponin T NT-Pro-B Natriuret Pep Total Protein Albumin LDL Cholesterol Direct Urine Creatinine 10/25/18 10/25/18 10/26/18 17:39 21:42 04:34 RBC 3.13 L Hgb Hct MCV 115 H MCH 39 H RDW 15.3 H Plt Count [place] % (Auto) 11.0 H Lymph # 1.0 L Seg Neutrophils % Heparin Anti-Xa Level Sodium Potassium Chloride Carbon Dioxide BUN Creatinine Glucose POC Glucose 240 H 206 H Magnesium AST ALT Alkaline Phosphatase Total Creatine Kinase Troponin T NT-Pro-B Natriuret Pep Total Protein Albumin LDL Cholesterol Direct Urine Creatinine 10/26/18 10/26/18 10/26/18 04:34 08:18 12:20 RBC Hgb Hct MCV MCH RDW Plt Count [place] % (Auto) Lymph # Seg Neutrophils % Heparin Anti-Xa Level Sodium 152 H Potassium Chloride 118.2 H Carbon Dioxide 20 L BUN 55 H Creatinine 2.1 H Glucose 146 H POC Glucose 158 H 221 H Magnesium AST ALT Alkaline Phosphatase Total Creatine Kinase Troponin T NT-Pro-B Natriuret Pep Total Protein Albumin LDL Cholesterol Direct Urine Creatinine 10/26/18 10/26/18 10/27/18 17:10 21:00 04:02 RBC Hgb Hct MCV MCH RDW Plt Count [place] % (Auto) Lymph # Seg Neutrophils % Heparin Anti-Xa Level Sodium 150 H Potassium Chloride 116.5 H Carbon Dioxide BUN 53 H Creatinine 1.9 H Glucose 157 H POC Glucose 139 H 194 H Magnesium 2.40 H AST ALT Alkaline Phosphatase Total Creatine Kinase Troponin T NT-Pro-B Natriuret Pep Total Protein Albumin LDL Cholesterol Direct Urine Creatinine 10/27/18 07:23 RBC Hgb Hct MCV MCH RDW Plt Count [place] % (Auto) Lymph # Seg Neutrophils % Heparin Anti-Xa Level Sodium Potassium Chloride Carbon Dioxide BUN Creatinine Glucose POC Glucose 170 H Magnesium AST ALT Alkaline Phosphatase Total Creatine Kinase Troponin T NT-Pro-B Natriuret Pep Total Protein Albumin LDL Cholesterol Direct Urine Creatinine
--- NOTE | 2018-10-27 11:11 | XRay Report ---
CHEST 1 VIEW INDICATION: SOB. COMPARISON: 10/24/2018 FINDINGS: SUPPORT DEVICES: None. HEART / MEDIASTINUM: Persisting cardiac enlargement LUNGS / PLEURA: Persistent prominent bronchovascular markings No significant pulmonary or pleural abn ormality. No pneumothorax. ADDITIONAL FINDINGS: IMPRESSION: 1. No acute findings. Signer Name: Prudencio Mckinney MD Signed: 10/27/2018 11:06 AM Workstation Name: [id number] [id number]
[2018-10-27] MEDS: BABY ASPIRIN PO SCH (11:18)
[2018-10-27] MEDS: EPIVIR PO SCH (11:19)
[2018-10-27] MEDS: RETROVIR PO SCH ×2 (11:21→21:10)
[2018-10-27] MEDS: SODIUM CHLORIDE FLUSH SYRINGE 10 ML IV SCH ×2 (11:23→21:12)
[2018-10-27] MEDS: TOPROL XL PO SCH (11:23)
[2018-10-27] MEDS: ZIAGEN PO SCH ×2 (11:24→21:11)
--- NOTE | 2018-10-27 11:55 | Progress Note ---
Assessment and Plan 1. 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 His creatinine was 2.8 about 5 months ago. Monitor renal function. Avoid nephrotoxic agents. Meds dosage based on GFR. 2. FEN: Hyperkalemia, improved. Metabolic acidosis, improving. Hypernatremia, encourage PO fluids. Monitor lytes. 3. Elevated Troponin: ?NSTEMI. Followed by Cards. 4. Suspected CHF: Compensated. 5. HIV. 6. DM type 2. 7. HTN: Monitor BP. Subjective Date of service: 10/27/18 Principal diagnosis: Cardiomyopathy Interval history: Patient was seen and examined at the bedside. Doing ok. Objective - Vital Signs Vital signs: Vital Signs - 12hr 10/27/18 10/27/18 10/27/18 04:19 07:18 09:12 Temperature 98.0 F 97.9 F Pulse Rate 67 107 H 111 H Respiratory 20 18 18 Rate Blood Pressure 114/72 128/87 122/97 O2 Sat by Pulse 90 100 100 Oximetry 10/27/18 11:23 Temperature Pulse Rate 111 H Respiratory Rate Blood Pressure 122/97 O2 Sat by Pulse Oximetry - General Appearance General appearance: well-developed, appears stated age, other (no distress) EENT: ATNC, PERRL, mucous membranes dry, hearing intact Neck: supple Respiratory: Present: Clear to Ascultation Cardiology: regular, S1S2, no murmurs Gastrointestinal: normoactive bowel sounds, no tenderness, no distended Integumentary: no rash, warm and dry Neurologic: no focal deficit, no asterixis, disoriented Musculoskeletal: other (no edema) - Lab 10/26/18 04:34 10/27/18 04:02 Most recent lab results Calcium 8.6 mg/dL (8.4-10.2) 10/27/18 04:02 Phosphorus 3.70 mg/dL (2.5-4.5) 10/27/18 04:02 Magnesium 2.40 mg/dL (1.7-2.3) H 10/27/18 04:02 137.8 mg/dL (0.1-20.0) H 10/24/18 22:18 40 mmol/L 10/24/18 22:18 Medications & Allergies - Medications Allergies/Adverse Reactions: Allergies No Known Allergies Allergy (Unverified 03/29/16 00:43) Home Medications: Home Medications Medication Instructions Recorded Confirmed Last Taken Type Aspirin [Aspirin BABY CHEW TAB] 81 mg PO QDAY #30 tab.chew 11/15/17 10/24/18 Unknown Rx Abacavir/Lamivudine/Zidovudine 1 tab PO DAILY 05/21/18 10/24/18 Unknown History Amlodipine Besylate 10 mg PO QDAY 05/21/18 10/24/18 Unknown History Carvedilol 6.25 mg PO BID 05/21/18 10/24/18 Unknown History Isentress 400 mg PO Q12HR 05/21/18 10/24/18 Unknown History Levemir Flextouch 60 unit SUB-Q QHS 05/21/18 10/24/18 Unknown History Lisinopril 40 mg PO DAILY 05/21/18 10/24/18 Unknown History Metformin HCl 500 mg PO BID 05/21/18 10/24/18 Unknown History Rosuvastatin Calcium 10 mg PO DAILY 05/21/18 10/24/18 Unknown History Tamsulosin HCl 0.4 mg PO HS 05/21/18 10/24/18 Unknown History Active Medications: Generic Name Dose Route Start Last Admin Trade Name Freq PRN Reason Stop Dose Admin Abacavir Sulfate 300 mg 10/27/18 10:00 10/27/18 11:24 Ziagen PO 300 mg BID KEN Administration Acetaminophen 650 mg 10/24/18 20:42 Tylenol PO Q4H PRN Pain MILD(1-3)/Fever >100.5/SIMMONS Albuterol 2.5 mg 10/24/18 20:42 Proventil IH Q4HRT PRN Shortness Of Breath Aspirin 81 mg 10/25/18 10:00 10/27/18 11:18 Baby Aspirin PO 81 mg QDAY KEN Administration Atorvastatin Calcium 20 mg 10/25/18 10:00 10/27/18 11:20 Lipitor PO 20 mg DAILY KEN Administration Dextrose 50 ml 10/24/18 20:53 D50w (25gm) Syringe IV PRN PRN Hypoglycemia Enoxaparin Sodium 40 mg 10/27/18 22:00 Lovenox SUB-Q QDAY@2200 KEN Hydralazine HCl 10 mg 10/27/18 14:00 Apresoline PO Q8HR [facility] Insulin Human Lispro 0 unit 10/24/18 22:00 10/27/18 11:24 Humalog SUB-Q 3 unit ACHS KEN Administration Protocol Lamivudine 150 mg 10/25/18 10:00 10/27/18 11:19 Epivir PO 150 mg DAILY KEN Administration Metoprolol Succinate 25 mg 10/27/18 10:00 10/27/18 11:23 Toprol Xl PO Not Given QDAY KEN Ondansetron HCl 4 mg 10/24/18 20:42 Zofran IV Q8H PRN Nausea And Vomiting Raltegravir 400 mg 10/24/18 22:00 10/27/18 11:20 Isentress PO 400 mg Q12HR KEN Administration Sodium Chloride 10 ml 10/24/18 22:00 10/27/18 11:23 Sodium Chloride Flush Syringe 10 Ml IV 10 ml BID KEN Administration Sodium Chloride 10 ml 10/24/18 20:42 Sodium Chloride Flush Syringe 10 Ml IV PRN PRN LINE FLUSH Zidovudine 300 mg 10/27/18 10:00 10/27/18 11:21 Retrovir PO 300 mg BID KEN Administration
[2018-10-27] MEDS: APRESOLINE PO SCH ×2 (16:16→21:07)
[2018-10-27] MEDS: LOVENOX SUB-Q SCH (21:11)
[2018-10-28 06:04] LABS: Calcium 8.4 mg/dL (8.4-10.2)
[2018-10-28] MEDS: APRESOLINE PO SCH ×3 (06:18→21:03)
--- NOTE | 2018-10-28 09:01 | Progress Note ---
Subjective Date of service: 10/28/18 Principal diagnosis: Cardiomyopathy Interval history: still very confused and forgetful agitation better the VS from this AM are stable suspect pontine lesion causing encephalopathy Objective - Vital Sign Vital Signs - 12hr 10/27/18 10/28/18 10/28/18 21:07 00:00 03:01 Temperature 98.2 F Pulse Rate 100 H 108 H 108 H Respiratory 18 Rate Blood Pressure 113/82 104/82 O2 Sat by Pulse 86 Oximetry 10/28/18 10/28/18 10/28/18 04:34 06:18 08:16 Temperature 97.8 F Pulse Rate 79 65 Respiratory 18 Rate Blood Pressure 133/75 153/70 O2 Sat by Pulse 96 100 Oximetry 10/28/18 08:47 Temperature 97.7 F Pulse Rate 79 Respiratory 28 H Rate Blood Pressure 129/88 O2 Sat by Pulse 100 Oximetry - Laboratory Findings CBC and BMP: 10/26/18 04:34 10/28/18 04:41 Abnormal Lab Findings: Abnormal Labs 10/24/18 10/24/18 10/24/18 15:33 15:33 15:44 RBC 2.99 L Hgb Hct MCV 120 H MCH 39 H RDW 15.8 H Plt Count 118 L [place] % (Auto) 8.9 H Lymph # 0.9 L Seg Neutrophils % 73.8 H Heparin Anti-Xa Level Sodium Potassium 5.2 H Chloride 114.1 H Carbon Dioxide 15 L BUN 40 H Creatinine 1.9 H Glucose 171 H POC Glucose Magnesium AST ALT Alkaline Phosphatase Total Creatine Kinase Troponin T 0.420 H* NT-Pro-B Natriuret Pep Total Protein Albumin LDL Cholesterol Direct 36 L Vitamin B12 Urine Creatinine 10/24/18 10/24/18 10/24/18 15:44 19:20 22:18 RBC Hgb Hct MCV MCH RDW Plt Count [place] % (Auto) Lymph # Seg Neutrophils % Heparin Anti-Xa Level Sodium Potassium Chloride Carbon Dioxide BUN Creatinine Glucose POC Glucose Magnesium AST ALT Alkaline Phosphatase Total Creatine Kinase 276 H Troponin T 0.507 H* D NT-Pro-B Natriuret Pep 46108 H Total Protein Albumin LDL Cholesterol Direct Vitamin B12 Urine Creatinine 137.8 H 10/24/18 10/24/18 10/24/18 23:13 23:38 23:44 RBC Hgb Hct MCV MCH RDW Plt Count [place] % (Auto) Lymph # Seg Neutrophils % Heparin Anti-Xa Level Sodium Potassium Chloride Carbon Dioxide BUN Creatinine Glucose POC Glucose 159 H 161 H Magnesium AST ALT Alkaline Phosphatase Total Creatine Kinase Troponin T 0.522 H* NT-Pro-B Natriuret Pep Total Protein Albumin LDL Cholesterol Direct Vitamin B12 Urine Creatinine 10/25/18 10/25/18 10/25/18 04:56 04:56 04:56 RBC 2.94 L Hgb 11.5 L Hct 33.9 L MCV 116 H MCH 39 H RDW Plt Count 120 L [place] % (Auto) 9.2 H Lymph # 1.0 L Seg Neutrophils % Heparin Anti-Xa Level Sodium 151 H Potassium Chloride 116.2 H Carbon Dioxide 19 L BUN 49 H Creatinine 2.0 H Glucose 145 H POC Glucose Magnesium AST 72 H ALT 73 H Alkaline Phosphatase 282 H Total Creatine Kinase Troponin T 0.493 H* NT-Pro-B Natriuret Pep Total Protein 5.9 L Albumin 2.9 L LDL Cholesterol Direct Vitamin B12 Urine Creatinine 10/25/18 10/25/18 10/25/18 04:56 05:51 12:12 RBC Hgb Hct MCV MCH RDW Plt Count [place] % (Auto) Lymph # Seg Neutrophils % Heparin Anti-Xa Level 0.25 L Sodium Potassium Chloride Carbon Dioxide BUN Creatinine Glucose POC Glucose 153 H 178 H Magnesium AST ALT Alkaline Phosphatase Total Creatine Kinase Troponin T NT-Pro-B Natriuret Pep Total Protein Albumin LDL Cholesterol Direct Vitamin B12 Urine Creatinine 10/25/18 10/25/18 10/26/18 17:39 21:42 04:34 RBC 3.13 L Hgb Hct MCV 115 H MCH 39 H RDW 15.3 H Plt Count [place] % (Auto) 11.0 H Lymph # 1.0 L Seg Neutrophils % Heparin Anti-Xa Level Sodium Potassium Chloride Carbon Dioxide BUN Creatinine Glucose POC Glucose 240 H 206 H Magnesium AST ALT Alkaline Phosphatase Total Creatine Kinase Troponin T NT-Pro-B Natriuret Pep Total Protein Albumin LDL Cholesterol Direct Vitamin B12 Urine Creatinine 10/26/18 10/26/18 10/26/18 04:34 08:18 12:20 RBC Hgb Hct MCV MCH RDW Plt Count [place] % (Auto) Lymph # Seg Neutrophils % Heparin Anti-Xa Level Sodium 152 H Potassium Chloride 118.2 H Carbon Dioxide 20 L BUN 55 H Creatinine 2.1 H Glucose 146 H POC Glucose 158 H 221 H Magnesium AST ALT Alkaline Phosphatase Total Creatine Kinase Troponin T NT-Pro-B Natriuret Pep Total Protein Albumin LDL Cholesterol Direct Vitamin B12 Urine Creatinine 10/26/18 10/26/18 10/27/18 17:10 21:00 04:02 RBC Hgb Hct MCV MCH RDW Plt Count [place] % (Auto) Lymph # Seg Neutrophils % Heparin Anti-Xa Level Sodium 150 H Potassium Chloride 116.5 H Carbon Dioxide BUN 53 H Creatinine 1.9 H Glucose 157 H POC Glucose 139 H 194 H Magnesium 2.40 H AST ALT Alkaline Phosphatase Total Creatine Kinase Troponin T NT-Pro-B Natriuret Pep Total Protein Albumin LDL Cholesterol Direct Vitamin B12 Urine Creatinine 10/27/18 10/27/18 10/27/18 07:23 10:49 11:14 RBC Hgb Hct MCV MCH RDW Plt Count [place] % (Auto) Lymph # Seg Neutrophils % Heparin Anti-Xa Level Sodium Potassium Chloride Carbon Dioxide BUN Creatinine Glucose POC Glucose 170 H 207 H Magnesium AST ALT Alkaline Phosphatase Total Creatine Kinase Troponin T NT-Pro-B Natriuret Pep Total Protein Albumin LDL Cholesterol Direct Vitamin B12 > 2000 H Urine Creatinine 10/27/18 10/27/18 10/28/18 16:03 20:21 04:41 RBC Hgb Hct MCV MCH RDW Plt Count [place] % (Auto) Lymph # Seg Neutrophils % Heparin Anti-Xa Level Sodium Potassium Chloride 111.0 H Carbon Dioxide 20 L BUN 54 H Creatinine 2.0 H Glucose 182 H POC Glucose 178 H 382 H Magnesium AST ALT Alkaline Phosphatase Total Creatine Kinase Troponin T NT-Pro-B Natriuret Pep Total Protein Albumin LDL Cholesterol Direct Vitamin B12 Urine Creatinine 10/28/18 07:56 RBC Hgb Hct MCV MCH RDW Plt Count [place] % (Auto) Lymph # Seg Neutrophils % Heparin Anti-Xa Level Sodium Potassium Chloride Carbon Dioxide BUN Creatinine Glucose POC Glucose 200 H Magnesium AST ALT Alkaline Phosphatase Total Creatine Kinase Troponin T NT-Pro-B Natriuret Pep Total Protein Albumin LDL Cholesterol Direct Vitamin B12 Urine Creatinine
[2018-10-28] MEDS: HumaLOG SUB-Q SCH ×3 (09:13→21:08)
[2018-10-28] MEDS: BABY ASPIRIN PO SCH (09:14)
[2018-10-28] MEDS: RETROVIR PO SCH ×2 (09:15→21:06)
[2018-10-28] MEDS: SODIUM CHLORIDE FLUSH SYRINGE 10 ML IV SCH ×2 (09:16→21:03)
[2018-10-28] MEDS: EPIVIR PO SCH (09:16)
[2018-10-28] MEDS: ISENTRESS PO SCH ×2 (09:16→21:04)
[2018-10-28] MEDS: TOPROL XL PO SCH (10:26)
[2018-10-28] MEDS: ZIAGEN PO SCH ×2 (10:28→21:05)
--- NOTE | 2018-10-28 10:55 | Progress Note ---
Assessment and Plan Altered mental status Acute CVA on CT brain Hypernatremia - improving Non-specific troponin suggesting type II IN Cardiomyopathy, EF 15-20% Moderate to severe MR and TR Renal failure HIV Tele is showing sinus tachycardia Recommendations: There is evidence of fluid overload today on exam; therefore, will treat with 1 dose of IV lasix Discussed cardiomyopathy with patient and he wishes no further cardiac testing. He only wants medical therapy Subjective Date of service: 10/28/18 Principal diagnosis: Cardiomyopathy Interval history: Patient states that he is feeling ok He denies chest pain but continues to have some shortness of breath Objective Vital Signs Temp Pulse Resp BP Pulse Ox 10/28/18 10:26 79 129/88 10/28/18 08:47 97.7 F 79 28 H 129/88 100 10/28/18 08:16 100 10/28/18 06:18 65 153/70 10/28/18 04:34 97.8 F 79 18 133/75 96 10/28/18 03:01 108 H 10/28/18 00:00 98.2 F 108 H 18 104/82 86 10/27/18 21:07 100 H 113/82 10/27/18 19:21 97.8 F 100 H 18 113/82 100 10/27/18 16:16 103 H 119/85 10/27/18 15:54 98.0 F 103 H 18 119/85 100 10/27/18 11:23 111 H 122/97 10/27/18 11:10 97.9 F 105 H 18 106/77 100 - Physical Examination HEENT: Positive: PERRL Neck: Positive: neck supple, trachea midline, JVD/HJR Cardiac: Positive: Reg Rate and Rhythm Lungs: Positive: Decreased Breath Sounds Neuro: Positive: Grossly Intact Extremities: Absent: edema - Labs and Meds Comprehensive Metabolic Panel 10/28/18 Range/Units 04:41 Sodium 144 (137-145) mmol/L Potassium 4.5 (3.6-5.0) mmol/L Chloride 111.0 H (98-107) mmol/L Carbon Dioxide 20 L (22-30) mmol/L BUN 54 H (9-20) mg/dL Creatinine 2.0 H (0.8-1.5) mg/dL Glucose 182 H (75-100) mg/dL Calcium 8.4 (8.4-10.2) mg/dL
[2018-10-28] MEDS ORDERED: LASIX IV ONE (11:00)
--- NOTE | 2018-10-28 11:45 | Progress Note ---
Assessment and Plan 1. 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 His creatinine was 2.8 about 5 months ago. Monitor renal function. Avoid nephrotoxic agents. Meds dosage based on GFR. 2. FEN: Hyperkalemia, improved. Metabolic acidosis, improving. Hypernatremia, improving. Monitor lytes. 3. Elevated Troponin: ?NSTEMI. Followed by Cards. 4. Suspected CHF: Compensated. 5. HIV. 6. DM type 2. 7. HTN: Monitor BP. Subjective Date of service: 10/28/18 Principal diagnosis: Cardiomyopathy Interval history: Patient was seen and examined at the bedside. Doing ok. Objective - Vital Signs Vital signs: Vital Signs - 12hr 10/28/18 10/28/18 10/28/18 00:00 03:01 04:34 Temperature 98.2 F 97.8 F Pulse Rate 108 H 108 H 79 Respiratory 18 18 Rate Blood Pressure 104/82 133/75 O2 Sat by Pulse 86 96 Oximetry 10/28/18 10/28/18 10/28/18 06:18 08:16 08:47 Temperature 97.7 F Pulse Rate 65 79 Respiratory 28 H Rate Blood Pressure 153/70 129/88 O2 Sat by Pulse 100 100 Oximetry 10/28/18 10:26 Temperature Pulse Rate 79 Respiratory Rate Blood Pressure 129/88 O2 Sat by Pulse Oximetry - General Appearance General appearance: well-developed, well-nourished, appears stated age, other (no distress) EENT: ATNC, PERRL, vision intact Neck: supple Respiratory: Present: Clear to Ascultation Cardiology: S1S2, no murmurs Gastrointestinal: normoactive bowel sounds, no tenderness, no distended Integumentary: no rash, warm and dry Neurologic: no focal deficit, no asterixis, disoriented Musculoskeletal: other (no edema) Psychiatric: cooperative - Lab 10/26/18 04:34 10/28/18 04:41 Most recent lab results Calcium 8.4 mg/dL (8.4-10.2) 10/28/18 04:41 Phosphorus 3.70 mg/dL (2.5-4.5) 10/27/18 04:02 Magnesium 2.40 mg/dL (1.7-2.3) H 10/27/18 04:02 137.8 mg/dL (0.1-20.0) H 10/24/18 22:18 40 mmol/L 10/24/18 22:18 Medications & Allergies - Medications Allergies/Adverse Reactions: Allergies No Known Allergies Allergy (Unverified 03/29/16 00:43) Home Medications: Home Medications Medication Instructions Recorded Confirmed Last Taken Type Aspirin [Aspirin BABY CHEW TAB] 81 mg PO QDAY #30 tab.chew 11/15/17 10/24/18 Unknown Rx Abacavir/Lamivudine/Zidovudine 1 tab PO DAILY 05/21/18 10/24/18 Unknown History Amlodipine Besylate 10 mg PO QDAY 05/21/18 10/24/18 Unknown History Carvedilol 6.25 mg PO BID 05/21/18 10/24/18 Unknown History Isentress 400 mg PO Q12HR 05/21/18 10/24/18 Unknown History Levemir Flextouch 60 unit SUB-Q QHS 05/21/18 10/24/18 Unknown History Lisinopril 40 mg PO DAILY 05/21/18 10/24/18 Unknown History Metformin HCl 500 mg PO BID 05/21/18 10/24/18 Unknown History Rosuvastatin Calcium 10 mg PO DAILY 05/21/18 10/24/18 Unknown History Tamsulosin HCl 0.4 mg PO HS 05/21/18 10/24/18 Unknown History Active Medications: Generic Name Dose Route Start Last Admin Trade Name Freq PRN Reason Stop Dose Admin Abacavir Sulfate 300 mg 10/27/18 10:00 10/28/18 10:28 Ziagen PO 300 mg BID KEN Administration Acetaminophen 650 mg 10/24/18 20:42 Tylenol PO Q4H PRN Pain MILD(1-3)/Fever >100.5/SIMMONS Albuterol 2.5 mg 10/24/18 20:42 Proventil IH Q4HRT PRN Shortness Of Breath Aspirin 81 mg 10/25/18 10:00 10/28/18 09:14 Baby Aspirin PO 81 mg QDAY KEN Administration Atorvastatin Calcium 20 mg 10/25/18 10:00 10/28/18 09:15 Lipitor PO 20 mg DAILY KEN Administration Dextrose 50 ml 10/24/18 20:53 D50w (25gm) Syringe IV PRN PRN Hypoglycemia Enoxaparin Sodium 40 mg 10/27/18 22:00 10/27/18 21:11 Lovenox SUB-Q 40 mg QDAY@2200 KEN Administration Hydralazine HCl 10 mg 10/27/18 14:00 10/28/18 06:18 Apresoline PO 10 mg Q8HR KEN Administration Insulin Human Lispro 0 unit 10/24/18 22:00 10/28/18 09:13 Humalog SUB-Q 2 unit ACHS KEN Administration Protocol Lamivudine 150 mg 10/25/18 10:00 10/28/18 09:16 Epivir PO 150 mg DAILY KEN Administration Metoprolol Succinate 25 mg 10/27/18 10:00 10/28/18 10:26 Toprol Xl PO Not Given QDAY KEN Ondansetron HCl 4 mg 10/24/18 20:42 Zofran IV Q8H PRN Nausea And Vomiting Raltegravir 400 mg 10/24/18 22:00 10/28/18 09:16 Isentress PO 400 mg Q12HR KEN Administration Sodium Chloride 10 ml 10/24/18 22:00 10/28/18 09:16 Sodium Chloride Flush Syringe 10 Ml IV 10 ml BID KEN Administration Sodium Chloride 10 ml 10/24/18 20:42 Sodium Chloride Flush Syringe 10 Ml IV PRN PRN LINE FLUSH Zidovudine 300 mg 10/27/18 10:00 10/28/18 09:15 Retrovir PO 300 mg BID KEN Administration
--- NOTE | 2018-10-28 15:32 | Progress Note ---
Assessment and Plan /Possible acute CVA - CT head showed possible new infarct which was not seen on prior CT on May 2018 -Continue aspirin and statin - ordered MRI brain, consult neuro / NSTEMI (non-ST elevated myocardial infarction) type 2 Likely from acute renal failure Cardiology consulted in ED, medical management / HIV (human immunodeficiency virus infection) continue antiretroviral therapy, supportive care / Encephalopathy Likely metabolic versus acute CVA Continue to monitor clinically with supportive care / Acute CHFrEF (congestive heart failure) 15-20% Strict I/O, daily weight, afterload reduction, monitor uop q shift, supplemental oxygen, / Acute renal insufficiency monitor uop q shift, nephrology consulted in ED, urine electrolytes, strict I/O, monitor uop q shift, monitor fluid balance, monitor serum creatnine, /Hypernatremia Likely from dehydration, increased by mouth free water intake / DVT prophylaxis SCD to BLE while in bed, Transfer to tele Brief history: This is a 73-year old male with multiple medical problems who is admitted after he was found on the floor, unresponsive, by a family member. Patient is unable to give history surrounding this event. Initial labs revealed multiple metabolic abnormalities including elevated creatinine, elevated troponin and also hyponatremia. Head CT scan reports ischemia in the right temporo-occipital region. Finding are new when compared to prior study done May 2018. No evidence of hemorrhage. Patient was admitted for further evaluation and management. Physical exam: GENERAL: well-developed and well-nourished -[place] male lying on bed appeared to be in no discomfort. HEENT: Normocephalic. Atraumatic. No conjunctival congestion or icterus. Patient has moist mucous membranes. NECK: Supple. Trachea midline. CHEST/LUNGS: Clear to auscultated bilaterally, breathing nonlabored. No wheezes crackles or rhonchi. HEART/CARDIOVASCULAR: Regular in rate and rhythm. S1 and S2 positive. ABDOMEN: Abdomen is soft, nontender. Patient has normal bowel sounds. SKIN: There is no rash. Warm and dry. NEURO: No focal motor deficit. Follows command. Appears confused MUSCULOSKELETAL: No joint effusion or tenderness. EXTRIMITY: No edema, no cyanosis or clubbing. PSYCH: Agitated. Subjective Date of service: 10/27/18 Principal diagnosis: Cardiomyopathy Interval history: Patient seen and examined. Medical records and medication list reviewed. No acute event overnight noted by the RN. Patient denies any chest pain or difficulty breathing. Patient moving all his extremities remained restrained, noted altered by RN by now at his baseline per the Son Discussed plan of care at bedside with patient. Objective - Constitutional Vitals: Vital Signs - 12hr 10/28/18 10/28/18 10/28/18 04:34 06:18 08:16 Temperature 97.8 F Pulse Rate 79 65 Respiratory 18 Rate Blood Pressure 133/75 153/70 O2 Sat by Pulse 96 100 Oximetry 10/28/18 10/28/18 10/28/18 08:47 10:26 12:36 Temperature 97.7 F 97.1 F L Pulse Rate 79 79 100 H Respiratory 28 H 24 Rate Blood Pressure 129/88 129/88 109/80 O2 Sat by Pulse 100 98 Oximetry 10/28/18 10/28/18 14:09 14:13 Temperature Pulse Rate 100 H Respiratory 18 Rate Blood Pressure 109/80 O2 Sat by Pulse 98 Oximetry - Labs CBC & Chem 7: 10/26/18 04:34 10/28/18 04:41 Labs: Abnormal lab results 10/27/18 10/27/18 10/28/18 Range/Units 16:03 20:21 04:41 Chloride 111.0 H (98-107) mmol/L Carbon Dioxide 20 L (22-30) mmol/L BUN 54 H (9-20) mg/dL Creatinine 2.0 H (0.8-1.5) mg/dL Glucose 182 H (75-100) mg/dL POC Glucose 178 H 382 H (70-105) 10/28/18 10/28/18 Range/Units 07:56 11:42 Chloride (98-107) mmol/L Carbon Dioxide (22-30) mmol/L BUN (9-20) mg/dL Creatinine (0.8-1.5) mg/dL Glucose (75-100) mg/dL POC Glucose 200 H 212 H (70-105)
--- NOTE | 2018-10-28 15:34 | Progress Note ---
Assessment and Plan /Possible acute CVA - CT head showed possible new infarct which was not seen on prior CT on May 2018 -Continue aspirin and statin - ordered MRI brain, consult neuro / NSTEMI (non-ST elevated myocardial infarction) type 2 Likely from acute renal failure Cardiology consulted in ED, medical management / HIV (human immunodeficiency virus infection) continue antiretroviral therapy, supportive care / Encephalopathy Likely metabolic versus acute CVA Continue to monitor clinically with supportive care / Acute CHFrEF (congestive heart failure) 15-20% Strict I/O, daily weight, afterload reduction, monitor uop q shift, supplemental oxygen, / Acute renal insufficiency monitor uop q shift, nephrology consulted in ED, urine electrolytes, strict I/O, monitor uop q shift, monitor fluid balance, monitor serum creatnine, /Hypernatremia Likely from dehydration, increased by mouth free water intake / DVT prophylaxis SCD to BLE while in bed, Transfer to tele Brief history: This is a 73-year old male with multiple medical problems who is admitted after he was found on the floor, unresponsive, by a family member. Patient is unable to give history surrounding this event. Initial labs revealed multiple metabolic abnormalities including elevated creatinine, elevated troponin and also hyponatremia. Head CT scan reports ischemia in the right temporo-occipital region. Finding are new when compared to prior study done May 2018. No evidence of hemorrhage. Patient was admitted for further evaluation and management. Physical exam: GENERAL: well-developed and well-nourished -[place] male lying on bed appeared to be in no discomfort. HEENT: Normocephalic. Atraumatic. No conjunctival congestion or icterus. Patient has moist mucous membranes. NECK: Supple. Trachea midline. CHEST/LUNGS: Clear to auscultated bilaterally, breathing nonlabored. No wheezes crackles or rhonchi. HEART/CARDIOVASCULAR: Regular in rate and rhythm. S1 and S2 positive. ABDOMEN: Abdomen is soft, nontender. Patient has normal bowel sounds. SKIN: There is no rash. Warm and dry. NEURO: No focal motor deficit. Follows command. Appears confused MUSCULOSKELETAL: No joint effusion or tenderness. EXTRIMITY: No edema, no cyanosis or clubbing. PSYCH: cooperative. Subjective Date of service: 10/28/18 Principal diagnosis: Cardiomyopathy Interval history: Patient seen and examined. Medical records and medication list reviewed. No acute event overnight noted by the RN. Patient denies any chest pain or difficulty breathing. Patient moving all his extremities remained restrained, but follows commend Objective - Constitutional Vitals: Vital Signs - 12hr 10/28/18 10/28/18 10/28/18 04:34 06:18 08:16 Temperature 97.8 F Pulse Rate 79 65 Respiratory 18 Rate Blood Pressure 133/75 153/70 O2 Sat by Pulse 96 100 Oximetry 10/28/18 10/28/18 10/28/18 08:47 10:26 12:36 Temperature 97.7 F 97.1 F L Pulse Rate 79 79 100 H Respiratory 28 H 24 Rate Blood Pressure 129/88 129/88 109/80 O2 Sat by Pulse 100 98 Oximetry 10/28/18 10/28/18 14:09 14:13 Temperature Pulse Rate 100 H Respiratory 18 Rate Blood Pressure 109/80 O2 Sat by Pulse 98 Oximetry - Labs CBC & Chem 7: 10/26/18 04:34 10/29/18 04:43 Labs: Abnormal lab results 10/27/18 10/27/18 10/28/18 Range/Units 16:03 20:21 04:41 Chloride 111.0 H (98-107) mmol/L Carbon Dioxide 20 L (22-30) mmol/L BUN 54 H (9-20) mg/dL Creatinine 2.0 H (0.8-1.5) mg/dL Glucose 182 H (75-100) mg/dL POC Glucose 178 H 382 H (70-105) 10/28/18 10/28/18 Range/Units 07:56 11:42 Chloride (98-107) mmol/L Carbon Dioxide (22-30) mmol/L BUN (9-20) mg/dL Creatinine (0.8-1.5) mg/dL Glucose (75-100) mg/dL POC Glucose 200 H 212 H (70-105)
[2018-10-28] MEDS: LOVENOX SUB-Q SCH (21:03)
[2018-10-29] MEDS: APRESOLINE PO SCH ×4 (05:46→22:48)
[2018-10-29 06:01] LABS: Calcium 9.1 mg/dL (8.4-10.2)
--- NOTE | 2018-10-29 08:44 | Progress Note ---
Assessment and Plan 1. 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 His creatinine was 2.8 about 5 months ago. Monitor renal function. Avoid nephrotoxic agents. Meds dosage based on GFR. 2. FEN: Hyperkalemia, a dose of kayexalate today. Metabolic acidosis, monitor. Hypernatremia, improved. Monitor lytes. 3. Elevated Troponin: ?NSTEMI. Followed by Cards. 4. Suspected CHF: Compensated. 5. HIV. 6. DM type 2. 7. HTN: Monitor BP. Subjective Date of service: 10/29/18 Principal diagnosis: Cardiomyopathy Interval history: Patient was seen and examined at the bedside. Doing ok. Objective - Vital Signs Vital signs: Vital Signs - 12hr 10/28/18 10/28/18 10/28/18 21:03 22:00 23:35 Temperature 98.0 F Pulse Rate 67 91 H Respiratory 22 Rate Blood Pressure 112/73 114/74 O2 Sat by Pulse 98 100 Oximetry 10/29/18 10/29/18 10/29/18 02:56 06:02 08:11 Temperature 98.4 F 97.6 F Pulse Rate 91 H 102 H Respiratory 20 18 Rate Blood Pressure 142/87 144/103 O2 Sat by Pulse 94 Oximetry - General Appearance General appearance: well-developed, appears stated age, other (no distress) EENT: ATNC, PERRL, hearing intact Respiratory: Present: Clear to Ascultation Cardiology: regular, S1S2, no murmurs Gastrointestinal: normoactive bowel sounds, no tenderness, no distended Integumentary: no rash, warm and dry Neurologic: no focal deficit, disoriented Musculoskeletal: other (no edema) - Lab 10/26/18 04:34 10/29/18 04:43 Most recent lab results Calcium 9.1 mg/dL (8.4-10.2) 10/29/18 04:43 Phosphorus 3.70 mg/dL (2.5-4.5) 10/27/18 04:02 Magnesium 2.40 mg/dL (1.7-2.3) H 10/27/18 04:02 137.8 mg/dL (0.1-20.0) H 10/24/18 22:18 40 mmol/L 10/24/18 22:18 Medications & Allergies - Medications Allergies/Adverse Reactions: Allergies No Known Allergies Allergy (Unverified 03/29/16 00:43) Home Medications: Home Medications Medication Instructions Recorded Confirmed Last Taken Type Aspirin [Aspirin BABY CHEW TAB] 81 mg PO QDAY #30 tab.chew 11/15/17 10/24/18 Unknown Rx Abacavir/Lamivudine/Zidovudine 1 tab PO DAILY 05/21/18 10/24/18 Unknown History Amlodipine Besylate 10 mg PO QDAY 05/21/18 10/24/18 Unknown History Carvedilol 6.25 mg PO BID 05/21/18 10/24/18 Unknown History Isentress 400 mg PO Q12HR 05/21/18 10/24/18 Unknown History Levemir Flextouch 60 unit SUB-Q QHS 05/21/18 10/24/18 Unknown History Lisinopril 40 mg PO DAILY 05/21/18 10/24/18 Unknown History Metformin HCl 500 mg PO BID 05/21/18 10/24/18 Unknown History Rosuvastatin Calcium 10 mg PO DAILY 05/21/18 10/24/18 Unknown History Tamsulosin HCl 0.4 mg PO HS 05/21/18 10/24/18 Unknown History Active Medications: Generic Name Dose Route Start Last Admin Trade Name Freq PRN Reason Stop Dose Admin Abacavir Sulfate 300 mg 10/27/18 10:00 10/28/18 21:05 Ziagen PO 300 mg BID KEN Administration Acetaminophen 650 mg 10/24/18 20:42 Tylenol PO Q4H PRN Pain MILD(1-3)/Fever >100.5/SIMMONS Albuterol 2.5 mg 10/24/18 20:42 Proventil IH Q4HRT PRN Shortness Of Breath Aspirin 81 mg 10/25/18 10:00 10/28/18 09:14 Baby Aspirin PO 81 mg QDAY KEN Administration Atorvastatin Calcium 20 mg 10/25/18 10:00 10/28/18 09:15 Lipitor PO 20 mg DAILY KEN Administration Dextrose 50 ml 10/24/18 20:53 D50w (25gm) Syringe IV PRN PRN Hypoglycemia Enoxaparin Sodium 40 mg 10/27/18 22:00 10/28/18 21:03 Lovenox SUB-Q 40 mg QDAY@2200 KEN Administration Hydralazine HCl 10 mg 10/27/18 14:00 10/29/18 05:46 Apresoline PO Not Given Q8HR KEN Insulin Human Lispro 0 unit 10/24/18 22:00 10/28/18 21:08 Humalog SUB-Q 3 unit ACHS KEN Administration Protocol Lamivudine 150 mg 10/25/18 10:00 10/28/18 09:16 Epivir PO 150 mg DAILY KEN Administration Metoprolol Succinate 25 mg 10/27/18 10:00 10/28/18 10:26 Toprol Xl PO Not Given QDAY KEN Ondansetron HCl 4 mg 10/24/18 20:42 Zofran IV Q8H PRN Nausea And Vomiting Raltegravir 400 mg 10/24/18 22:00 10/28/18 21:04 Isentress PO 400 mg Q12HR KEN Administration Sodium Chloride 10 ml 10/24/18 22:00 10/28/18 21:03 Sodium Chloride Flush Syringe 10 Ml IV 10 ml BID KEN Administration Sodium Chloride 10 ml 10/24/18 20:42 Sodium Chloride Flush Syringe 10 Ml IV PRN PRN LINE FLUSH Sodium Polystyrene Sulfonate 30 gm 10/29/18 08:41 Kionex PO 10/29/18 08:42 ONCE ONE Zidovudine 300 mg 10/27/18 10:00 10/28/18 21:06 Retrovir PO 300 mg BID KEN Administration
[2018-10-29] MEDS ORDERED: KIONEX PO NR (09:00)
[2018-10-29] MEDS: HumaLOG SUB-Q SCH ×5 (09:38→22:03)
--- NOTE | 2018-10-29 10:10 | Progress Note ---
Assessment and Plan Altered mental status Acute CVA Hypernatremia - improving Non-specific troponin Cardiomyopathy, uncertain duration EF 15-20% patient declines further cardiac testing and only wishes medical therapy. Moderate to severe MR and TR Chronic Renal failure HIV Diabetes Recommendations: Diuretics as per Nephrology. Afterload reduction, beta blockers and oral antiplatelet for dilated cardiomyopathy. Subjective Date of service: 10/29/18 Principal diagnosis: Cardiomyopathy Interval history: Complains of shortness of breath. Objective Vital Signs Temp Pulse Resp BP Pulse Ox 10/29/18 09:31 97 H 10/29/18 08:11 97.6 F 18 144/103 10/29/18 06:02 98.4 F 102 H 20 142/87 94 10/29/18 02:56 91 H 10/28/18 23:35 98.0 F 91 H 22 114/74 100 10/28/18 22:00 98 10/28/18 21:03 67 112/73 10/28/18 19:24 97.3 F L 67 21 112/73 92 10/28/18 17:26 97.2 F L 96 H 22 123/82 97 10/28/18 14:13 18 98 10/28/18 14:09 100 H 109/80 10/28/18 12:36 97.1 F L 100 H 24 109/80 98 10/28/18 10:26 79 129/88 - Physical Examination General: No Apparent Distress HEENT: Positive: PERRL Neck: Positive: trachea midline Cardiac: Positive: Tachycardia Lungs: Positive: Decreased Breath Sounds Neuro: Positive: Grossly Intact Extremities: Present: +1 Edema - Labs and Meds Comprehensive Metabolic Panel 10/29/18 Range/Units 04:43 Sodium 142 (137-145) mmol/L Potassium 5.1 H (3.6-5.0) mmol/L Chloride 106.8 (98-107) mmol/L Carbon Dioxide 18 L (22-30) mmol/L BUN 54 H (9-20) mg/dL Creatinine 2.2 H (0.8-1.5) mg/dL Glucose 214 H (75-100) mg/dL Calcium 9.1 (8.4-10.2) mg/dL
[2018-10-29] MEDS: ZIAGEN PO SCH ×3 (10:42→22:48)
[2018-10-29] MEDS: BABY ASPIRIN PO SCH (10:42)
[2018-10-29] MEDS: ISENTRESS PO SCH ×3 (10:44→22:48)
[2018-10-29] MEDS: TOPROL XL PO SCH (10:44)
[2018-10-29] MEDS: SODIUM CHLORIDE FLUSH SYRINGE 10 ML IV SCH ×2 (10:47→22:03)
[2018-10-29] MEDS: RETROVIR PO SCH ×3 (10:55→22:48)
--- NOTE | 2018-10-29 11:27 | Ultrasound Report ---
RENAL ULTRASOUND HISTORY: ckd COMPARISON: None. TECHNIQUE: Multiple real-time ultrasonographic grayscale images were obtained of the kidneys and urin andrea bladder. FINDINGS: Right kidney: No hydronephrosis. Marked increased echogenicity of the kidney and diffuse parenchymal thinning. A 9 mm upper pole cyst. Kidney measures 9.5 cm. Left kidney: Marked increased echogenicity of the kidney and diffuse parenchymal thinning. No hydrone phrosis. Kidney measures 0.6 cm cm. Urinary bladder: No significant abnormality. Additional findings: None. IMPRESSION: Bilateral medical renal disease with small kidneys and no hydronephrosis. Signer Name: Rommel Graves MD Signed: 10/29/2018 11:23 AM Workstation Name: [id number]
[2018-10-29] MEDS: EPIVIR PO SCH (11:39)
--- NOTE | 2018-10-29 14:03 | Progress Note ---
Assessment and Plan /Possible acute CVA - CT head showed possible new infarct which was not seen on prior CT on May 2018 -Continue aspirin and statin - ordered MRI brain, consulted neuro / NSTEMI (non-ST elevated myocardial infarction) type 2 Likely from acute renal failure Cardiology consulted in ED, medical management / HIV (human immunodeficiency virus infection) continue antiretroviral therapy, supportive care / Encephalopathy Likely metabolic versus acute CVA Continue to monitor clinically with supportive care / Acute CHFrEF (congestive heart failure) 15-20% Strict I/O, daily weight, afterload reduction, monitor uop q shift, supplemental oxygen, / Acute renal insufficiency monitor uop q shift, nephrology consulted in ED, urine electrolytes, strict I/O, monitor uop q shift, monitor fluid balance, monitor serum creatnine, /Hypernatremia Likely from dehydration, increased by mouth free water intake /hyperkalemia, kayexalate as needed, monitor bmp / DVT prophylaxis SCD to BLE while in bed, Disposition: ordered PT, may need placement Brief history: This is a 73-year old male with multiple medical problems who is admitted after he was found on the floor, unresponsive, by a family member. Patient is unable to give history surrounding this event. Initial labs revealed multiple metabolic abnormalities including elevated creatinine, elevated troponin and also hyponatremia. Head CT scan reports ischemia in the right temporo-occipital region. Finding are new when compared to prior study done May 2018. No evidence of hemorrhage. Patient was admitted for further evaluation and management. Physical exam: GENERAL: well-developed and well-nourished -[place]izen [place] male lying on bed appeared to be in no discomfort. HEENT: Normocephalic. Atraumatic. No conjunctival congestion or icterus. Patient has moist mucous membranes. NECK: Supple. Trachea midline. CHEST/LUNGS: Clear to auscultated bilaterally, breathing nonlabored. No wheezes crackles or rhonchi. HEART/CARDIOVASCULAR: Regular in rate and rhythm. S1 and S2 positive. ABDOMEN: Abdomen is soft, nontender. Patient has normal bowel sounds. SKIN: There is no rash. Warm and dry. NEURO: No focal motor deficit. Follows command. Appears confused MUSCULOSKELETAL: No joint effusion or tenderness. EXTRIMITY: No edema, no cyanosis or clubbing. PSYCH: cooperative. Subjective Date of service: 10/29/18 Principal diagnosis: Cardiomyopathy Interval history: Patient seen and examined. Medical records and medication list reviewed. No acute event overnight noted by the RN. Patient denies any chest pain or difficulty breathing. Patient moving all his extremities remained restrained, but follows commend Objective - Constitutional Vitals: Vital Signs - 12hr 10/29/18 10/29/18 10/29/18 02:56 06:02 08:11 Temperature 98.4 F 97.6 F Pulse Rate 91 H 102 H Respiratory 20 18 Rate Blood Pressure 142/87 144/103 O2 Sat by Pulse 94 Oximetry 10/29/18 10/29/18 10/29/18 09:31 10:00 10:44 Temperature Pulse Rate 97 H 102 H Respiratory Rate Blood Pressure 144/100 O2 Sat by Pulse 98 Oximetry 10/29/18 10/29/18 12:00 13:37 Temperature Pulse Rate 104 H Respiratory 18 Rate Blood Pressure 130/94 O2 Sat by Pulse Oximetry - Labs CBC & Chem 7: 10/26/18 04:34 10/29/18 04:43 Labs: Abnormal lab results 10/28/18 10/28/18 10/29/18 Range/Units 16:16 21:01 04:43 Potassium 5.1 H (3.6-5.0) mmol/L Carbon Dioxide 18 L (22-30) mmol/L BUN 54 H (9-20) mg/dL Creatinine 2.2 H (0.8-1.5) mg/dL Glucose 214 H (75-100) mg/dL POC Glucose 171 H 223 H (70-105) 10/29/18 10/29/18 Range/Units 08:16 11:47 Potassium (3.6-5.0) mmol/L Carbon Dioxide (22-30) mmol/L BUN (9-20) mg/dL Creatinine (0.8-1.5) mg/dL Glucose (75-100) mg/dL POC Glucose 244 H 260 H (70-105)
--- NOTE | 2018-10-29 14:05 | Magnetic Resonance Report ---
MRI BRAIN WITHOUT CONTRAST INDICATION / CLINICAL INFORMATION: CVA. TECHNIQUE: Multiplanar, multisequence MR images of the brain were obtained. COMPARISON: Head CT on 10/24/2018. FINDINGS: BRAIN / INTRACRANIAL CONTENTS: No restricted diffusion to evidently suggest any acute infarct. (Sligh t increased signal in the left occipital lobe is felt to be artifactual.) Chronic infarct in the righ t parietal lobe in the right MCA [employer] border zone/watershed territory. Chronic lacunar infarct in the right paracentral marsha. There are moderate areas of increased signal intensity on FLAIR imaging in t he white matter of the cerebral hemispheres. Given the location and appearance, these most likely ref lect chronic microvascular angiopathic change. These are considered to be advanced (even for the janis ent's age) and probably indicate chronic hypertension, diabetes, and/or chronic kidney disease. CRANIOCERVICAL JUNCTION: No significant abnormality. VASCULAR FLOW-VOIDS: No significant abnormality. ORBITS: No significant abnormality of visualized orbits. SINUSES / MASTOIDS: No significant abnormality of visualized sinuses and mastoid air cells. ADDITIONAL FINDINGS: None. IMPRESSION: 1. No acute infarct or acute intracranial abnormality. 2. Chronic infarct in the right parietal lobe and the right MCA [employer] watershed territory. Chronic lacu mariaa infarct in the right paracentral marsha. 3. Moderate chronic deep cerebral white matter microvascular angiopathic change. Signer Name: Christian Young MD Signed: 10/29/2018 2:00 PM Workstation Name: [id number]
[2018-10-29] MEDS: LOVENOX SUB-Q SCH (22:03)
[2018-10-30] MEDS: ZIAGEN PO SCH ×3 (01:30→21:49)
[2018-10-30] MEDS: APRESOLINE PO SCH ×3 (05:51→21:49)
[2018-10-30] MEDS: RETROVIR PO SCH ×3 (05:53→21:51)
[2018-10-30] MEDS: ISENTRESS PO SCH ×3 (05:53→21:49)
[2018-10-30 06:16] LABS: Calcium 9.1 mg/dL (8.4-10.2)
[2018-10-30] MEDS: HumaLOG SUB-Q SCH ×4 (09:07→21:50)
[2018-10-30] MEDS: BABY ASPIRIN PO SCH (10:33)
[2018-10-30] MEDS: TOPROL XL PO SCH (10:33)
[2018-10-30] MEDS: EPIVIR PO SCH (10:33)
[2018-10-30] MEDS: SODIUM CHLORIDE FLUSH SYRINGE 10 ML IV SCH ×2 (10:35→21:51)
--- NOTE | 2018-10-30 12:59 | Progress Note ---
Assessment and Plan Altered mental status Acute CVA Hypernatremia - improving Non-specific troponin Cardiomyopathy, uncertain duration EF 15-20% patient declines further cardiac testing and only wishes medical therapy. Moderate to severe MR and TR Chronic Renal failure HIV Diabetes Recommendations: Continue medical therapy for dilated cardiomyopathy and chronic systolic heart failure. Subjective Date of service: 10/30/18 Principal diagnosis: Cardiomyopathy Interval history: Alert with mild confusion. Bilateral wrist restraints are in placed. Objective Vital Signs Temp Pulse Pulse Resp BP Pulse Ox 10/30/18 10:33 62 117/79 10/30/18 10:00 16 95 10/30/18 08:11 97.5 F L 62 16 117/79 100 10/30/18 08:09 100 10/30/18 05:51 97 H 135/99 10/30/18 04:12 98.0 F 18 135/99 10/29/18 23:37 98.0 F 18 135/87 10/29/18 22:48 98 H 134/96 10/29/18 21:19 98 10/29/18 20:31 102 H 18 92 10/29/18 19:46 99 H 10/29/18 19:28 98.0 F 20 134/96 10/29/18 16:56 97.5 F L 18 130/86 10/29/18 13:37 104 H 130/94 - Physical Examination General: No Apparent Distress HEENT: Positive: PERRL Neck: Positive: trachea midline Cardiac: Positive: Reg Rate and Rhythm Lungs: Positive: Decreased Breath Sounds Neuro: Positive: Grossly Intact Extremities: Present: +1 Edema - Labs and Meds Comprehensive Metabolic Panel 10/30/18 Range/Units 04:53 Sodium 145 (137-145) mmol/L Potassium 5.0 (3.6-5.0) mmol/L Chloride 111.3 H (98-107) mmol/L Carbon Dioxide 21 L (22-30) mmol/L BUN 61 H (9-20) mg/dL Creatinine 2.1 H (0.8-1.5) mg/dL Glucose 73 L (75-100) mg/dL Calcium 9.1 (8.4-10.2) mg/dL
--- NOTE | 2018-10-30 13:36 | Progress Note ---
Assessment and Plan 1. 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 Renal function is overall stable with some fluctuation. Monitor renal function. Avoid nephrotoxic agents. Meds dosage based on GFR. 2. FEN: Hyperkalemia, improved. Metabolic acidosis, monitor. Hypernatremia, improved. Monitor lytes. 3. Elevated Troponin: ?NSTEMI. Followed by Cards. 4. Severe dilated cardiomyopathy and chronic LV systolic dysfunction: Compensated. 5. HIV. 6. DM type 2. 7. HTN: Monitor BP. Subjective Date of service: 10/30/18 Principal diagnosis: Cardiomyopathy Interval history: Patient was seen and examined at the bedside. Doing ok. Objective - Vital Signs Vital signs: Vital Signs - 12hr 10/30/18 10/30/18 10/30/18 04:12 05:51 08:09 Temperature 98.0 F Pulse Rate 97 H Respiratory 18 Rate Blood Pressure 135/99 135/99 O2 Sat by Pulse 100 Oximetry 10/30/18 10/30/18 10/30/18 08:11 10:00 10:33 Temperature 97.5 F L Pulse Rate 62 62 Respiratory 16 16 Rate Blood Pressure 117/79 117/79 O2 Sat by Pulse 100 95 Oximetry 10/30/18 12:58 Temperature 97.7 F Pulse Rate 69 Respiratory 16 Rate Blood Pressure 119/80 O2 Sat by Pulse 100 Oximetry - General Appearance General appearance: well-developed, appears stated age, other (no distress) EENT: ATNC, PERRL, hearing diminished Neck: supple Respiratory: Present: Clear to Ascultation Cardiology: regular, S1S2, no murmurs Gastrointestinal: normoactive bowel sounds, no tenderness, no distended Integumentary: no rash, warm and dry Neurologic: no focal deficit, confused, disoriented Musculoskeletal: other (no edema) - Lab 10/26/18 04:34 10/30/18 04:53 Most recent lab results Calcium 9.1 mg/dL (8.4-10.2) 10/30/18 04:53 Phosphorus 3.70 mg/dL (2.5-4.5) 10/27/18 04:02 Magnesium 2.40 mg/dL (1.7-2.3) H 10/27/18 04:02 137.8 mg/dL (0.1-20.0) H 10/24/18 22:18 40 mmol/L 10/24/18 22:18 Medications & Allergies - Medications Allergies/Adverse Reactions: Allergies No Known Allergies Allergy (Unverified 03/29/16 00:43) Home Medications: Home Medications Medication Instructions Recorded Confirmed Last Taken Type Aspirin [Aspirin BABY CHEW TAB] 81 mg PO QDAY #30 tab.chew 11/15/17 10/24/18 Unknown Rx Abacavir/Lamivudine/Zidovudine 1 tab PO DAILY 05/21/18 10/24/18 Unknown History Amlodipine Besylate 10 mg PO QDAY 05/21/18 10/24/18 Unknown History Carvedilol 6.25 mg PO BID 05/21/18 10/24/18 Unknown History Isentress 400 mg PO Q12HR 05/21/18 10/24/18 Unknown History Levemir Flextouch 60 unit SUB-Q QHS 05/21/18 10/24/18 Unknown History Lisinopril 40 mg PO DAILY 05/21/18 10/24/18 Unknown History Metformin HCl 500 mg PO BID 05/21/18 10/24/18 Unknown History Rosuvastatin Calcium 10 mg PO DAILY 05/21/18 10/24/18 Unknown History Tamsulosin HCl 0.4 mg PO HS 05/21/18 10/24/18 Unknown History Active Medications: Generic Name Dose Route Start Last Admin Trade Name Freq PRN Reason Stop Dose Admin Abacavir Sulfate 300 mg 10/27/18 10:00 10/30/18 10:33 Ziagen PO 300 mg BID KEN Administration Acetaminophen 650 mg 10/24/18 20:42 Tylenol PO Q4H PRN Pain MILD(1-3)/Fever >100.5/SIMMONS Albuterol 2.5 mg 10/24/18 20:42 Proventil IH Q4HRT PRN Shortness Of Breath Aspirin 81 mg 10/25/18 10:00 10/30/18 10:33 Baby Aspirin PO 81 mg QDAY KEN Administration Atorvastatin Calcium 20 mg 10/25/18 10:00 10/30/18 10:34 Lipitor PO 20 mg DAILY KEN Administration Dextrose 50 ml 10/24/18 20:53 D50w (25gm) Syringe IV PRN PRN Hypoglycemia Enoxaparin Sodium 40 mg 10/27/18 22:00 10/29/18 22:03 Lovenox SUB-Q 40 mg QDAY@2200 KEN Administration Hydralazine HCl 10 mg 10/27/18 14:00 10/30/18 05:51 Apresoline PO 10 mg Q8HR KEN Administration Insulin Human Lispro 0 unit 10/24/18 22:00 10/30/18 09:07 Humalog SUB-Q Not Given ACHS KEN Protocol Lamivudine 150 mg 10/25/18 10:00 10/30/18 10:33 Epivir PO 150 mg DAILY KEN Administration Metoprolol Succinate 25 mg 10/27/18 10:00 10/30/18 10:33 Toprol Xl PO 25 mg QDAY KEN Administration Ondansetron HCl 4 mg 10/24/18 20:42 Zofran IV Q8H PRN Nausea And Vomiting Raltegravir 400 mg 10/24/18 22:00 10/30/18 10:33 Isentress PO 400 mg Q12HR KEN Administration Sodium Chloride 10 ml 10/24/18 22:00 10/30/18 10:35 Sodium Chloride Flush Syringe 10 Ml IV 10 ml BID KEN Administration Sodium Chloride 10 ml 10/24/18 20:42 Sodium Chloride Flush Syringe 10 Ml IV PRN PRN LINE FLUSH Zidovudine 300 mg 10/27/18 10:00 10/30/18 05:53 Retrovir PO Not Given BID KEN
[2018-10-30] MEDS: LOVENOX SUB-Q SCH (21:49)
[2018-10-31] MEDS: APRESOLINE PO SCH ×3 (05:59→21:57)
[2018-10-31 06:42] LABS: Calcium 8.8 mg/dL (8.4-10.2)
--- NOTE | 2018-10-31 09:44 | Progress Note ---
Subjective Date of service: 10/31/18 Principal diagnosis: Cardiomyopathy Interval history: recheck of the sodium shows gradual correction which is c/w improvement in the basis for the pontine lesion continue current course of therapy will follow Objective - Vital Sign Vital Signs - 12hr 10/30/18 10/31/18 10/31/18 21:49 00:06 00:09 Temperature Pulse Rate 78 62 67 Respiratory 20 Rate Blood Pressure 104/68 120/75 O2 Sat by Pulse 100 Oximetry 10/31/18 10/31/18 10/31/18 00:11 04:26 04:28 Temperature 98.3 F 98.9 F Pulse Rate 94 H Respiratory 20 Rate Blood Pressure 132/83 O2 Sat by Pulse 100 Oximetry 10/31/18 10/31/18 05:59 08:25 Temperature 97.6 F Pulse Rate 94 H 67 Respiratory 18 Rate Blood Pressure 132/83 130/87 O2 Sat by Pulse 100 Oximetry - Laboratory Findings CBC and BMP: 10/26/18 04:34 10/31/18 05:28 Abnormal Lab Findings: Abnormal Labs 10/24/18 10/24/18 10/24/18 15:33 15:33 15:44 RBC 2.99 L Hgb Hct MCV 120 H MCH 39 H RDW 15.8 H Plt Count 118 L [place] % (Auto) 8.9 H Lymph # 0.9 L Seg Neutrophils % 73.8 H Heparin Anti-Xa Level POC ABG pH Sodium Potassium 5.2 H Chloride 114.1 H Carbon Dioxide 15 L BUN 40 H Creatinine 1.9 H Glucose 171 H POC Glucose Magnesium AST ALT Alkaline Phosphatase Total Creatine Kinase Troponin T 0.420 H* NT-Pro-B Natriuret Pep Total Protein Albumin LDL Cholesterol Direct 36 L Vitamin B12 PTH Intact Urine Creatinine 10/24/18 10/24/18 10/24/18 15:44 19:20 22:18 RBC Hgb Hct MCV MCH RDW Plt Count [place] % (Auto) Lymph # Seg Neutrophils % Heparin Anti-Xa Level POC ABG pH Sodium Potassium Chloride Carbon Dioxide BUN Creatinine Glucose POC Glucose Magnesium AST ALT Alkaline Phosphatase Total Creatine Kinase 276 H Troponin T 0.507 H* D NT-Pro-B Natriuret Pep 16490 H Total Protein Albumin LDL Cholesterol Direct Vitamin B12 PTH Intact Urine Creatinine 137.8 H 10/24/18 10/24/18 10/24/18 23:13 23:38 23:44 RBC Hgb Hct MCV MCH RDW Plt Count [place] % (Auto) Lymph # Seg Neutrophils % Heparin Anti-Xa Level POC ABG pH Sodium Potassium Chloride Carbon Dioxide BUN Creatinine Glucose POC Glucose 159 H 161 H Magnesium AST ALT Alkaline Phosphatase Total Creatine Kinase Troponin T 0.522 H* NT-Pro-B Natriuret Pep Total Protein Albumin LDL Cholesterol Direct Vitamin B12 PTH Intact Urine Creatinine 10/25/18 10/25/18 10/25/18 04:56 04:56 04:56 RBC 2.94 L Hgb 11.5 L Hct 33.9 L MCV 116 H MCH 39 H RDW Plt Count 120 L [place] % (Auto) 9.2 H Lymph # 1.0 L Seg Neutrophils % Heparin Anti-Xa Level POC ABG pH Sodium 151 H Potassium Chloride 116.2 H Carbon Dioxide 19 L BUN 49 H Creatinine 2.0 H Glucose 145 H POC Glucose Magnesium AST 72 H ALT 73 H Alkaline Phosphatase 282 H Total Creatine Kinase Troponin T 0.493 H* NT-Pro-B Natriuret Pep Total Protein 5.9 L Albumin 2.9 L LDL Cholesterol Direct Vitamin B12 PTH Intact Urine Creatinine 10/25/18 10/25/18 10/25/18 04:56 05:51 12:12 RBC Hgb Hct MCV MCH RDW Plt Count [place] % (Auto) Lymph # Seg Neutrophils % Heparin Anti-Xa Level 0.25 L POC ABG pH Sodium Potassium Chloride Carbon Dioxide BUN Creatinine Glucose POC Glucose 153 H 178 H Magnesium AST ALT Alkaline Phosphatase Total Creatine Kinase Troponin T NT-Pro-B Natriuret Pep Total Protein Albumin LDL Cholesterol Direct Vitamin B12 PTH Intact Urine Creatinine 10/25/18 10/25/18 10/26/18 17:39 21:42 04:34 RBC 3.13 L Hgb Hct MCV 115 H MCH 39 H RDW 15.3 H Plt Count [place] % (Auto) 11.0 H Lymph # 1.0 L Seg Neutrophils % Heparin Anti-Xa Level POC ABG pH Sodium Potassium Chloride Carbon Dioxide BUN Creatinine Glucose POC Glucose 240 H 206 H Magnesium AST ALT Alkaline Phosphatase Total Creatine Kinase Troponin T NT-Pro-B Natriuret Pep Total Protein Albumin LDL Cholesterol Direct Vitamin B12 PTH Intact Urine Creatinine 10/26/18 10/26/18 10/26/18 04:34 08:18 12:20 RBC Hgb Hct MCV MCH RDW Plt Count [place] % (Auto) Lymph # Seg Neutrophils % Heparin Anti-Xa Level POC ABG pH Sodium 152 H Potassium Chloride 118.2 H Carbon Dioxide 20 L BUN 55 H Creatinine 2.1 H Glucose 146 H POC Glucose 158 H 221 H Magnesium AST ALT Alkaline Phosphatase Total Creatine Kinase Troponin T NT-Pro-B Natriuret Pep Total Protein Albumin LDL Cholesterol Direct Vitamin B12 PTH Intact Urine Creatinine 10/26/18 10/26/18 10/27/18 17:10 21:00 04:02 RBC Hgb Hct MCV MCH RDW Plt Count [place] % (Auto) Lymph # Seg Neutrophils % Heparin Anti-Xa Level POC ABG pH Sodium 150 H Potassium Chloride 116.5 H Carbon Dioxide BUN 53 H Creatinine 1.9 H Glucose 157 H POC Glucose 139 H 194 H Magnesium 2.40 H AST ALT Alkaline Phosphatase Total Creatine Kinase Troponin T NT-Pro-B Natriuret Pep Total Protein Albumin LDL Cholesterol Direct Vitamin B12 PTH Intact Urine Creatinine 10/27/18 10/27/18 10/27/18 07:23 10:49 11:14 RBC Hgb Hct MCV MCH RDW Plt Count [place] % (Auto) Lymph # Seg Neutrophils % Heparin Anti-Xa Level POC ABG pH Sodium Potassium Chloride Carbon Dioxide BUN Creatinine Glucose POC Glucose 170 H 207 H Magnesium AST ALT Alkaline Phosphatase Total Creatine Kinase Troponin T NT-Pro-B Natriuret Pep Total Protein Albumin LDL Cholesterol Direct Vitamin B12 > 2000 H PTH Intact Urine Creatinine 10/27/18 10/27/18 10/28/18 16:03 20:21 04:41 RBC Hgb Hct MCV MCH RDW Plt Count [place] % (Auto) Lymph # Seg Neutrophils % Heparin Anti-Xa Level POC ABG pH Sodium Potassium Chloride 111.0 H Carbon Dioxide 20 L BUN 54 H Creatinine 2.0 H Glucose 182 H POC Glucose 178 H 382 H Magnesium AST ALT Alkaline Phosphatase Total Creatine Kinase Troponin T NT-Pro-B Natriuret Pep Total Protein Albumin LDL Cholesterol Direct Vitamin B12 PTH Intact Urine Creatinine 10/28/18 10/28/18 10/28/18 07:56 11:42 16:16 RBC Hgb Hct MCV MCH RDW Plt Count [place] % (Auto) Lymph # Seg Neutrophils % Heparin Anti-Xa Level POC ABG pH Sodium Potassium Chloride Carbon Dioxide BUN Creatinine Glucose POC Glucose 200 H 212 H 171 H Magnesium AST ALT Alkaline Phosphatase Total Creatine Kinase Troponin T NT-Pro-B Natriuret Pep Total Protein Albumin LDL Cholesterol Direct Vitamin B12 PTH Intact Urine Creatinine 10/28/18 10/29/18 10/29/18 21:01 04:43 08:16 RBC Hgb Hct MCV MCH RDW Plt Count [place] % (Auto) Lymph # Seg Neutrophils % Heparin Anti-Xa Level POC ABG pH Sodium Potassium 5.1 H Chloride Carbon Dioxide 18 L BUN 54 H Creatinine 2.2 H Glucose 214 H POC Glucose 223 H 244 H Magnesium AST ALT Alkaline Phosphatase Total Creatine Kinase Troponin T NT-Pro-B Natriuret Pep Total Protein Albumin LDL Cholesterol Direct Vitamin B12 PTH Intact Urine Creatinine 10/29/18 10/29/18 10/29/18 11:47 16:11 21:31 RBC Hgb Hct MCV MCH RDW Plt Count [place] % (Auto) Lymph # Seg Neutrophils % Heparin Anti-Xa Level POC ABG pH Sodium Potassium Chloride Carbon Dioxide BUN Creatinine Glucose POC Glucose 260 H 242 H 186 H Magnesium AST ALT Alkaline Phosphatase Total Creatine Kinase Troponin T NT-Pro-B Natriuret Pep Total Protein Albumin LDL Cholesterol Direct Vitamin B12 PTH Intact Urine Creatinine 10/30/18 10/30/18 10/30/18 04:53 13:04 16:32 RBC Hgb Hct MCV MCH RDW Plt Count [place] % (Auto) Lymph # Seg Neutrophils % Heparin Anti-Xa Level POC ABG pH 7.462 H Sodium Potassium Chloride 111.3 H Carbon Dioxide 21 L BUN 61 H Creatinine 2.1 H Glucose 73 L POC Glucose 143 H Magnesium AST ALT Alkaline Phosphatase Total Creatine Kinase Troponin T NT-Pro-B Natriuret Pep Total Protein Albumin LDL Cholesterol Direct Vitamin B12 PTH Intact Urine Creatinine 10/30/18 10/31/18 10/31/18 21:38 05:28 05:28 RBC Hgb Hct MCV MCH RDW Plt Count [place] % (Auto) Lymph # Seg Neutrophils % Heparin Anti-Xa Level POC ABG pH Sodium 147 H Potassium Chloride 110.1 H Carbon Dioxide 19 L BUN 58 H Creatinine 2.1 H Glucose 162 H POC Glucose 153 H Magnesium AST ALT Alkaline Phosphatase Total Creatine Kinase Troponin T NT-Pro-B Natriuret Pep Total Protein Albumin LDL Cholesterol Direct Vitamin B12 PTH Intact 92.97 H Urine Creatinine 10/31/18 08:33 RBC Hgb Hct MCV MCH RDW Plt Count [place] % (Auto) Lymph # Seg Neutrophils % Heparin Anti-Xa Level POC ABG pH Sodium Potassium Chloride Carbon Dioxide BUN Creatinine Glucose POC Glucose 196 H Magnesium AST ALT Alkaline Phosphatase Total Creatine Kinase Troponin T NT-Pro-B Natriuret Pep Total Protein Albumin LDL Cholesterol Direct Vitamin B12 PTH Intact Urine Creatinine
[2018-10-31] MEDS: TOPROL XL PO SCH (10:02)
[2018-10-31] MEDS: HumaLOG SUB-Q SCH ×4 (10:02→22:52)
[2018-10-31] MEDS: SODIUM CHLORIDE FLUSH SYRINGE 10 ML IV SCH ×2 (10:02→21:58)
[2018-10-31] MEDS: ISENTRESS PO SCH ×2 (10:03→21:56)
[2018-10-31] MEDS: RETROVIR PO SCH ×2 (10:03→21:57)
[2018-10-31] MEDS: ZIAGEN PO SCH ×2 (10:03→21:57)
[2018-10-31] MEDS: BABY ASPIRIN PO SCH (10:03)
[2018-10-31] MEDS: EPIVIR PO SCH (10:03)
--- NOTE | 2018-10-31 10:15 | Progress Note ---
Assessment and Plan 1. 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 Renal function is overall stable with some fluctuation. Monitor renal function. Avoid nephrotoxic agents. Meds dosage based on GFR. 2. FEN: Hyperkalemia, improved. Metabolic acidosis, monitor. Hypernatremia, monitor. Monitor lytes. 3. Elevated Troponin: ?NSTEMI. Followed by Cards. 4. Severe dilated cardiomyopathy and chronic LV systolic dysfunction: Compensated. 5. HIV. 6. DM type 2. 7. HTN: Monitor BP. Subjective Date of service: 10/31/18 Principal diagnosis: Cardiomyopathy Interval history: Patient was seen and examined at the bedside. Doing ok. Objective - Vital Signs Vital signs: Vital Signs - 12hr 10/31/18 10/31/18 10/31/18 00:06 00:09 00:11 Temperature 98.3 F Pulse Rate 62 67 Respiratory 20 Rate Blood Pressure 120/75 O2 Sat by Pulse 100 Oximetry 10/31/18 10/31/18 10/31/18 04:26 04:28 05:59 Temperature 98.9 F Pulse Rate 94 H 94 H Respiratory 20 Rate Blood Pressure 132/83 132/83 O2 Sat by Pulse 100 Oximetry 10/31/18 10/31/18 08:25 10:02 Temperature 97.6 F Pulse Rate 67 67 Respiratory 18 Rate Blood Pressure 130/87 130/87 O2 Sat by Pulse 100 Oximetry - General Appearance General appearance: well-developed, appears stated age, other (no distress, on restrains) EENT: ATNC, PERRL Neck: supple Respiratory: Present: Clear to Ascultation Cardiology: regular, S1S2, no murmurs Gastrointestinal: normoactive bowel sounds, no tenderness, no distended Integumentary: no rash Neurologic: no asterixis, confused, disoriented Musculoskeletal: other (no edema) - Lab 10/26/18 04:34 10/31/18 05:28 Most recent lab results Calcium 8.8 mg/dL (8.4-10.2) 10/31/18 05:28 Phosphorus 3.70 mg/dL (2.5-4.5) 10/27/18 04:02 Magnesium 2.40 mg/dL (1.7-2.3) H 10/27/18 04:02 137.8 mg/dL (0.1-20.0) H 10/24/18 22:18 40 mmol/L 10/24/18 22:18 Medications & Allergies - Medications Allergies/Adverse Reactions: Allergies No Known Allergies Allergy (Unverified 03/29/16 00:43) Home Medications: Home Medications Medication Instructions Recorded Confirmed Last Taken Type Aspirin [Aspirin BABY CHEW TAB] 81 mg PO QDAY #30 tab.chew 11/15/17 10/24/18 Unknown Rx Abacavir/Lamivudine/Zidovudine 1 tab PO DAILY 05/21/18 10/24/18 Unknown History Amlodipine Besylate 10 mg PO QDAY 05/21/18 10/24/18 Unknown History Carvedilol 6.25 mg PO BID 05/21/18 10/24/18 Unknown History Isentress 400 mg PO Q12HR 05/21/18 10/24/18 Unknown History Levemir Flextouch 60 unit SUB-Q QHS 05/21/18 10/24/18 Unknown History Lisinopril 40 mg PO DAILY 05/21/18 10/24/18 Unknown History Metformin HCl 500 mg PO BID 05/21/18 10/24/18 Unknown History Rosuvastatin Calcium 10 mg PO DAILY 05/21/18 10/24/18 Unknown History Tamsulosin HCl 0.4 mg PO HS 05/21/18 10/24/18 Unknown History Active Medications: Generic Name Dose Route Start Last Admin Trade Name Freq PRN Reason Stop Dose Admin Abacavir Sulfate 300 mg 10/27/18 10:00 10/31/18 10:03 Ziagen PO 300 mg BID KEN Administration Acetaminophen 650 mg 10/24/18 20:42 Tylenol PO Q4H PRN Pain MILD(1-3)/Fever >100.5/SIMMONS Albuterol 2.5 mg 10/24/18 20:42 Proventil IH Q4HRT PRN Shortness Of Breath Aspirin 81 mg 10/25/18 10:00 10/31/18 10:03 Baby Aspirin PO 81 mg QDAY KEN Administration Atorvastatin Calcium 20 mg 10/25/18 10:00 10/31/18 10:02 Lipitor PO 20 mg DAILY KEN Administration Dextrose 50 ml 10/24/18 20:53 D50w (25gm) Syringe IV PRN PRN Hypoglycemia Enoxaparin Sodium 40 mg 10/27/18 22:00 10/30/18 21:49 Lovenox SUB-Q 40 mg QDAY@2200 KEN Administration Hydralazine HCl 10 mg 10/27/18 14:00 10/31/18 05:59 Apresoline PO 10 mg Q8HR KEN Administration Insulin Human Lispro 0 unit 10/24/18 22:00 10/31/18 10:02 Humalog SUB-Q 2 unit ACHS KEN Administration Protocol Lamivudine 150 mg 10/25/18 10:00 10/31/18 10:03 Epivir PO 150 mg DAILY KEN Administration Metoprolol Succinate 25 mg 10/27/18 10:00 10/31/18 10:02 Toprol Xl PO 25 mg QDAY KEN Administration Ondansetron HCl 4 mg 10/24/18 20:42 Zofran IV Q8H PRN Nausea And Vomiting Raltegravir 400 mg 10/24/18 22:00 10/31/18 10:03 Isentress PO 400 mg Q12HR KEN Administration Sodium Chloride 10 ml 10/24/18 22:00 10/31/18 10:02 Sodium Chloride Flush Syringe 10 Ml IV 10 ml BID KEN Administration Sodium Chloride 10 ml 10/24/18 20:42 Sodium Chloride Flush Syringe 10 Ml IV PRN PRN LINE FLUSH Zidovudine 300 mg 10/27/18 10:00 10/31/18 10:03 Retrovir PO 300 mg BID KEN Administration
--- NOTE | 2018-10-31 10:53 | Progress Note ---
<MAGI LYMAN - Last Filed: 10/31/18 10:51> Assessment and Plan Altered mental status Acute CVA Hypernatremia - improving Non-specific troponin Cardiomyopathy, uncertain duration EF 15-20% patient declines further cardiac testing and only wishes medical therapy. Moderate to severe MR and TR Chronic Renal failure HIV Diabetes Recommendations: Continue medical therapy for dilated cardiomyopathy and chronic systolic heart failure. Conservative cardiac medical management. Subjective Date of service: 10/31/18 Principal diagnosis: Cardiomyopathy Interval history: Patient has no complaints. No cardiac events reported. Objective Vital Signs Temp Pulse Pulse Resp BP Pulse Ox 10/31/18 10:02 67 130/87 10/31/18 10:00 95 10/31/18 08:25 97.6 F 67 18 130/87 100 10/31/18 05:59 94 H 132/83 10/31/18 04:28 98.9 F 10/31/18 04:26 94 H 20 132/83 100 10/31/18 00:11 98.3 F 10/31/18 00:09 67 20 120/75 100 10/31/18 00:06 62 10/30/18 21:49 78 104/68 10/30/18 20:35 100 10/30/18 20:20 78 18 100 10/30/18 20:14 97.9 F 10/30/18 20:12 46 L 22 104/68 100 10/30/18 16:30 97.3 F L 75 14 122/84 100 10/30/18 13:39 69 119/80 10/30/18 12:58 97.7 F 69 16 119/80 100 - Physical Examination General: No Apparent Distress HEENT: Positive: PERRL Neck: Positive: trachea midline Cardiac: Positive: Reg Rate and Rhythm Lungs: Positive: Decreased Breath Sounds Neuro: Positive: Grossly Intact Extremities: Present: +1 Edema - Labs and Meds Comprehensive Metabolic Panel 10/31/18 Range/Units 05:28 Sodium 147 H (137-145) mmol/L Potassium 4.3 (3.6-5.0) mmol/L Chloride 110.1 H (98-107) mmol/L Carbon Dioxide 19 L (22-30) mmol/L BUN 58 H (9-20) mg/dL Creatinine 2.1 H (0.8-1.5) mg/dL Glucose 162 H (75-100) mg/dL Calcium 8.8 (8.4-10.2) mg/dL <CHRISSY VARGAS - Last Filed: 10/31/18 11:19> Assessment and Plan I've seen and evaluated the patient agrees with the assessment and plan. The patient has a dilated cardiomyopathy with ejection fraction 15-20%. At this time will continue with maximal medical therapy as patient is refusing any further cardiac workup. Objective Vital Signs Temp Pulse Pulse Resp BP Pulse Ox 10/31/18 11:10 100 10/31/18 10:02 67 130/87 10/31/18 10:00 95 10/31/18 08:25 97.6 F 67 18 130/87 100 10/31/18 05:59 94 H 132/83 10/31/18 04:28 98.9 F 10/31/18 04:26 94 H 20 132/83 100 10/31/18 00:11 98.3 F 10/31/18 00:09 67 20 120/75 100 10/31/18 00:06 62 10/30/18 21:49 78 104/68 10/30/18 20:35 100 10/30/18 20:20 78 18 100 10/30/18 20:14 97.9 F 10/30/18 20:12 46 L 22 104/68 100 10/30/18 16:30 97.3 F L 75 14 122/84 100 10/30/18 13:39 69 119/80 10/30/18 12:58 97.7 F 69 16 119/80 100 - Labs and Meds Comprehensive Metabolic Panel 10/31/18 Range/Units 05:28 Sodium 147 H (137-145) mmol/L Potassium 4.3 (3.6-5.0) mmol/L Chloride 110.1 H (98-107) mmol/L Carbon Dioxide 19 L (22-30) mmol/L BUN 58 H (9-20) mg/dL Creatinine 2.1 H (0.8-1.5) mg/dL Glucose 162 H (75-100) mg/dL Calcium 8.8 (8.4-10.2) mg/dL
--- NOTE | 2018-10-31 13:33 | Progress Note ---
Assessment and Plan Assessment and plan: Patient is a 73 yo man with a history of HIV who presented to [facility] ED after he was found on the floor unresponsive, by a family member. Patient is unable to give history surrounding this event. Initial labs revealed multiple metabolic abnormalities including elevated creatinine, elevated troponin and also hyponatremia. Head CT scan reports ischemia in the right temporo-occipital region. Finding are new when compared to prior study done May 2018. No evidence of hemorrhage. Patient was admitted for further evaluation and management. * MR brain without IMPRESSION: 1. No acute infarct or acute intracranial abnormality. 2. 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 Chronic lacunar infarct in the right paracentral marsha. 3. Moderate chronic deep cerebral white matter microvascular angiopathic change. / Acute Metabolic Encephalopathy, - ruled out CVA, TIA - CT head showed possible new infarct which was not seen on prior CT on May 2018 - Continue aspirin and statin / Acute hypoxic respiratory failure, poa: continue O2 / Acute systolic heart failure (congestive heart failure) 15-20% Strict I/O, daily weight, afterload reduction, monitor uop q shift, supplemental oxygen, / NSTEMI (non-ST elevated myocardial infarction) type 2 Likely from acute renal failure Cardiology consulted in ED, medical management / HIV (human immunodeficiency virus infection) continue antiretroviral therapy, supportive care / Acute renal insufficiency, ATN + vasomotor nephropathy, poa monitor uop q shift, nephrology consulted in ED, urine electrolytes, strict I/O, monitor uop q shift, monitor fluid balance, monitor serum creatnine, /Hypernatremia Likely from dehydration, increased by mouth free water intake /hyperkalemia, kayexalate as needed, monitor bmp / DVT prophylaxis SCD to BLE while in bed, Disposition: ordered PT, may need placement History Interval history: Patient was seen and examined. Follow-up on current diagnosis of AMS, improving but still in restraints. No overnight events reported to me. Patient denies any chest pain, shortness breath, nausea/vomiting or severe headaches. Imaging, nursing note, chart, labs and old chart reviewed. Discussed with patient. Hospitalist Physical - Physical exam Narrative exam: Gen: thin frail, chronically debilitated, awake, Orientated x 3 HEENT: NCAT, EOMI, PERRL, OP Clear Neck: supple, no adenopathy, no thyromegaly, no JVD CVS/Heart: Regular tachy normal S1S2, pulses present bilaterally Chest/Lungs: diminished bs bilateral, Symmetrical chest expansion, good air entry bilaterally GI/Abdomen: soft, NTND, good bowel sounds, no guarding or rebound /Bladder: no suprapubic tenderness, no CVA or paraspinal tenderness, +condom cath Extermity/Skin: no c/c/e, no obvious rash MSK: FROM x 4 Neuro: CN 2-12 grossly intact, no new focal deficits Psych: calm - Constitutional Vitals: Temp Pulse Resp BP Pulse Ox 98.8 F 104 H 18 138/89 100 10/31/18 11:51 10/31/18 11:51 10/31/18 11:51 10/31/18 11:51 10/31/18 11:51 General appearance: Present: no acute distress Results - Labs CBC & Chem 7: 10/26/18 04:34 10/31/18 05:28 Labs: Laboratory Last Values WBC 4.7 K/mm3 (4.5-11.0) 10/26/18 04:34 RBC 3.13 M/mm3 (3.65-5.03) L 10/26/18 04:34 Hgb 12.2 gm/dl (11.8-15.2) 10/26/18 04:34 Hct 36.1 % (35.5-45.6) 10/26/18 04:34 MCV 115 fl (84-94) H 10/26/18 04:34 MCH 39 pg (28-32) H 10/26/18 04:34 MCHC 34 % (32-34) 10/26/18 04:34 RDW 15.3 % (13.2-15.2) H 10/26/18 04:34 Plt Count 151 K/mm3 (140-440) 10/26/18 04:34 Lymph % (Auto) 20.5 % (13.4-35.0) 10/26/18 04:34 [place] % (Auto) 11.0 % (0.0-7.3) H 10/26/18 04:34 Eos % (Auto) 0.7 % (0.0-4.3) 10/26/18 04:34 Baso % (Auto) 0.3 % (0.0-1.8) 10/26/18 04:34 Lymph # 1.0 K/mm3 (1.2-5.4) L 10/26/18 04:34 [place] # 0.5 K/mm3 (0.0-0.8) 10/26/18 04:34 Eos # 0.0 K/mm3 (0.0-0.4) 10/26/18 04:34 Baso # 0.0 K/mm3 (0.0-0.1) 10/26/18 04:34 Seg Neutrophils % 67.5 % (40.0-70.0) 10/26/18 04:34 Seg Neutrophils # 3.2 K/mm3 (1.8-7.7) 10/26/18 04:34 Heparin Anti-Xa Level 0.58 U.I./ml (0.3-0.7) 10/25/18 11:48 POC ABG pH 7.462 (7.35-7.45) H 10/30/18 16:32 POC ABG pO2 99 (80-105) 10/30/18 16:32 POC ABG HCO3 18.3 (22-26 mml/L) 10/30/18 16:32 POC ABG Total CO2 19 (23-27mmol/L) 10/30/18 16:32 POC ABG O2 Sat 98 10/30/18 16:32 POC ABG Base Excess -6 ((-2) - (+3)mmol/L) 10/30/18 16:32 28 % 10/30/18 16:32 Sodium 147 mmol/L (137-145) H 10/31/18 05:28 Potassium 4.3 mmol/L (3.6-5.0) 10/31/18 05:28 Chloride 110.1 mmol/L (98-107) H 10/31/18 05:28 Carbon Dioxide 19 mmol/L (22-30) L 10/31/18 05:28 22 mmol/L 10/31/18 05:28 BUN 58 mg/dL (9-20) H 10/31/18 05:28 2.1 mg/dL (0.8-1.5) H 10/31/18 05:28 Estimated GFR 38 ml/min 10/31/18 05:28 28 % 10/31/18 05:28 Glucose 162 mg/dL (75-100) H 10/31/18 05:28 POC Glucose 263 (70-105) H 10/31/18 11:58 Calcium 8.8 mg/dL (8.4-10.2) 10/31/18 05:28 Phosphorus 3.70 mg/dL (2.5-4.5) 10/27/18 04:02 Magnesium 2.40 mg/dL (1.7-2.3) H 10/27/18 04:02 0.40 mg/dL (0.1-1.2) 10/25/18 04:56 AST 72 units/L (5-40) H 10/25/18 04:56 ALT 73 units/L (7-56) H 10/25/18 04:56 282 units/L (35-129) H 10/25/18 04:56 276 units/L (55-170) H 10/24/18 15:44 0.493 ng/mL (0.00-0.029) H* 10/25/18 04:56 NT-Pro-B Natriuret Pep 81632 pg/mL (0-900) H 10/24/18 15:44 5.9 g/dL (6.3-8.2) L 10/25/18 04:56 2.9 g/dL (3.9-5) L 10/25/18 04:56 1.0 % 10/25/18 04:56 Triglycerides 65 mg/dL (2-149) 10/24/18 15:44 Cholesterol 88 mg/dL (50-199) 10/24/18 15:44 36 mg/dL (50-130) L 10/24/18 15:44 47 mg/dL (40-59) 10/24/18 15:44 1.87 % 10/24/18 15:44 Vitamin B12 > 2000 pg/mL (211-911) H 10/27/18 10:49 TSH 2.350 mlU/mL (0.270-4.200) 10/27/18 10:49 PTH Intact 92.97 pg/mL (15-65) H 10/31/18 05:28 Yellow (Yellow) 10/24/18 22:18 Slightly-cloudy (Clear) 10/24/18 22:18 5.0 (5.0-7.0) 10/24/18 22:18 Ur Specific [place] 1.015 (1.003-1.030) 10/24/18 22:18 100 mg/dl mg/dL (Negative) 10/24/18 22:18 Neg mg/dL (Negative) 10/24/18 22:18 Neg mg/dL (Negative) 10/24/18 22:18 Neg (Negative) 10/24/18 22:18 Neg (Negative) 10/24/18 22:18 Neg (Negative) 10/24/18 22:18 2.0 mg/dL (<2.0) 10/24/18 22:18 Ur Leukocyte Esterase Neg (Negative) 10/24/18 22:18 4.0 /HPF (0.0-6.0) 10/24/18 22:18 4.0 /HPF (0.0-6.0) 10/24/18 22:18 Amorphous Crystals Few 10/24/18 22:18 Hyaline Casts 9 /LPF 10/24/18 22:18 Few /HPF 10/24/18 22:18 137.8 mg/dL (0.1-20.0) H 10/24/18 22:18 40 mmol/L 10/24/18 22:18 Active Medications - Current Medications Current Medications: Generic Name Dose Route Start Last Admin Trade Name Freq PRN Reason Stop Dose Admin Abacavir Sulfate 300 mg 10/27/18 10:00 10/31/18 10:03 Ziagen PO 300 mg BID KEN Administration Acetaminophen 650 mg 10/24/18 20:42 Tylenol PO Q4H PRN Pain MILD(1-3)/Fever >100.5/SIMMONS Albuterol 2.5 mg 10/24/18 20:42 Proventil IH Q4HRT PRN Shortness Of Breath Aspirin 81 mg 10/25/18 10:00 10/31/18 10:03 Baby Aspirin PO 81 mg QDAY KEN Administration Atorvastatin Calcium 20 mg 10/25/18 10:00 10/31/18 10:02 Lipitor PO 20 mg DAILY KEN Administration Dextrose 50 ml 10/24/18 20:53 D50w (25gm) Syringe IV PRN PRN Hypoglycemia Enoxaparin Sodium 40 mg 10/27/18 22:00 10/30/18 21:49 Lovenox SUB-Q 40 mg QDAY@2200 KEN Administration Hydralazine HCl 10 mg 10/27/18 14:00 10/31/18 05:59 Apresoline PO 10 mg Q8HR KEN Administration Insulin Human Lispro 0 unit 10/24/18 22:00 10/31/18 10:02 Humalog SUB-Q 2 unit ACHS KEN Administration Protocol Isosorbide Mononitrate 30 mg 11/01/18 10:00 Imdur PO QDAY KEN Lamivudine 150 mg 10/25/18 10:00 10/31/18 10:03 Epivir PO 150 mg DAILY KEN Administration Metoprolol Succinate 25 mg 10/27/18 10:00 10/31/18 10:02 Toprol Xl PO 25 mg QDAY KEN Administration Ondansetron HCl 4 mg 10/24/18 20:42 Zofran IV Q8H PRN Nausea And Vomiting Raltegravir 400 mg 10/24/18 22:00 10/31/18 10:03 Isentress PO 400 mg Q12HR KEN Administration Sodium Chloride 10 ml 10/24/18 22:00 10/31/18 10:02 Sodium Chloride Flush Syringe 10 Ml IV 10 ml BID KEN Administration Sodium Chloride 10 ml 10/24/18 20:42 Sodium Chloride Flush Syringe 10 Ml IV PRN PRN LINE FLUSH Zidovudine 300 mg 10/27/18 10:00 10/31/18 10:03 Retrovir PO 300 mg BID KEN Administration
--- NOTE | 2018-10-31 13:59 | Progress Note ---
Assessment and Plan Assessment and plan: Patient is a 73 yo man with a history of HIV who presented to [facility] ED after he was found on the floor unresponsive, by a family member. Patient is unable to give history surrounding this event. Initial labs revealed multiple metabolic abnormalities including elevated creatinine, elevated troponin and also hyponatremia. Head CT scan reports ischemia in the right temporo-occipital region. Finding are new when compared to prior study done May 2018. Patient was admitted for further evaluation and management. * MR brain without IMPRESSION: 1. No acute infarct or acute intracranial abnormality. 2. 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 Chronic lacunar infarct in the right paracentral marsha. 3. Moderate chronic deep cerebral white matter microvascular angiopathic change. Acute Metabolic Encephalopathy, poa, ruled out CVA/TIA: Continue aspirin and statin Acute hypoxic respiratory failure, poa: continue to wean O2, suspect component of MIRANDA Acute systolic heart failure (congestive heart failure) 15-20%: Cardiology is following, input noted, Strict I/O, daily weight, afterload reduction, monitor uop q shift, supplemental oxygen, NSTEMI (non-ST elevated myocardial infarction) type 2, Likely from acute renal failure, Cardiology consulted in ED, medical management HIV (human immunodeficiency virus infection): continue antiretroviral therapy, supportive care Acute renal insufficiency, ATN + vasomotor nephropathy, poa: monitor uop q shift, nephrology consulted in ED, urine electrolytes, strict I/O, monitor uop q shift, monitor fluid balance, monitor serum creatnine, Type 2 DM uncontrolled hyperglycemia: treat with SSI, ADA Moderate malnutrition, poa: consult Ophthalmic Pathologist Hypernatremia: Likely from dehydration, increased by mouth free water intake Hyperkalemia, kayexalate as needed, monitor bmp DVT prophylaxis: SCD to BLE while in bed, on sq lovenox Disposition: continue inpatient care, SNF pending History Interval history: Patient was seen and examined. Follow-up on current diagnosis of AMS, improving but still in restraints. No overnight events reported to me. Patient denies any chest pain, shortness breath, nausea/vomiting or severe headaches. Imaging, nursing note, chart, labs and old chart reviewed. Discussed with patient. Hospitalist Physical - Physical exam Narrative exam: Gen: thin frail, chronically debilitated, awake, Orientated x 3 HEENT: NCAT, EOMI, PERRL, OP Clear Neck: supple, no adenopathy, no thyromegaly, no JVD CVS/Heart: Regular tachy normal S1S2, pulses present bilaterally Chest/Lungs: diminished bs bilateral, Symmetrical chest expansion, good air entry bilaterally GI/Abdomen: soft, NTND, good bowel sounds, no guarding or rebound /Bladder: no suprapubic tenderness, no CVA or paraspinal tenderness, +condom cath Extermity/Skin: no c/c/e, no obvious rash MSK: FROM x 4 Neuro: CN 2-12 grossly intact, no new focal deficits Psych: calm - Constitutional Vitals: Temp Pulse Resp BP Pulse Ox 98.8 F 104 H 18 138/89 100 10/31/18 11:51 10/31/18 11:51 10/31/18 11:51 10/31/18 11:51 10/31/18 11:51 General appearance: Present: no acute distress Results - Labs CBC & Chem 7: 10/26/18 04:34 10/31/18 05:28 Labs: Laboratory Last Values WBC 4.7 K/mm3 (4.5-11.0) 10/26/18 04:34 RBC 3.13 M/mm3 (3.65-5.03) L 10/26/18 04:34 Hgb 12.2 gm/dl (11.8-15.2) 10/26/18 04:34 Hct 36.1 % (35.5-45.6) 10/26/18 04:34 MCV 115 fl (84-94) H 10/26/18 04:34 MCH 39 pg (28-32) H 10/26/18 04:34 MCHC 34 % (32-34) 10/26/18 04:34 RDW 15.3 % (13.2-15.2) H 10/26/18 04:34 Plt Count 151 K/mm3 (140-440) 10/26/18 04:34 Lymph % (Auto) 20.5 % (13.4-35.0) 10/26/18 04:34 [place] % (Auto) 11.0 % (0.0-7.3) H 10/26/18 04:34 Eos % (Auto) 0.7 % (0.0-4.3) 10/26/18 04:34 Baso % (Auto) 0.3 % (0.0-1.8) 10/26/18 04:34 Lymph # 1.0 K/mm3 (1.2-5.4) L 10/26/18 04:34 [place] # 0.5 K/mm3 (0.0-0.8) 10/26/18 04:34 Eos # 0.0 K/mm3 (0.0-0.4) 10/26/18 04:34 Baso # 0.0 K/mm3 (0.0-0.1) 10/26/18 04:34 Seg Neutrophils % 67.5 % (40.0-70.0) 10/26/18 04:34 Seg Neutrophils # 3.2 K/mm3 (1.8-7.7) 10/26/18 04:34 Heparin Anti-Xa Level 0.58 U.I./ml (0.3-0.7) 10/25/18 11:48 POC ABG pH 7.462 (7.35-7.45) H 10/30/18 16:32 POC ABG pO2 99 (80-105) 10/30/18 16:32 POC ABG HCO3 18.3 (22-26 mml/L) 10/30/18 16:32 POC ABG Total CO2 19 (23-27mmol/L) 10/30/18 16:32 POC ABG O2 Sat 98 10/30/18 16:32 POC ABG Base Excess -6 ((-2) - (+3)mmol/L) 10/30/18 16:32 28 % 10/30/18 16:32 Sodium 147 mmol/L (137-145) H 10/31/18 05:28 Potassium 4.3 mmol/L (3.6-5.0) 10/31/18 05:28 Chloride 110.1 mmol/L (98-107) H 10/31/18 05:28 Carbon Dioxide 19 mmol/L (22-30) L 10/31/18 05:28 22 mmol/L 10/31/18 05:28 BUN 58 mg/dL (9-20) H 10/31/18 05:28 2.1 mg/dL (0.8-1.5) H 10/31/18 05:28 Estimated GFR 38 ml/min 10/31/18 05:28 28 % 10/31/18 05:28 Glucose 162 mg/dL (75-100) H 10/31/18 05:28 POC Glucose 263 (70-105) H 10/31/18 11:58 Calcium 8.8 mg/dL (8.4-10.2) 10/31/18 05:28 Phosphorus 3.70 mg/dL (2.5-4.5) 10/27/18 04:02 Magnesium 2.40 mg/dL (1.7-2.3) H 10/27/18 04:02 0.40 mg/dL (0.1-1.2) 10/25/18 04:56 AST 72 units/L (5-40) H 10/25/18 04:56 ALT 73 units/L (7-56) H 10/25/18 04:56 282 units/L (35-129) H 10/25/18 04:56 276 units/L (55-170) H 10/24/18 15:44 0.493 ng/mL (0.00-0.029) H* 10/25/18 04:56 NT-Pro-B Natriuret Pep 37770 pg/mL (0-900) H 10/24/18 15:44 5.9 g/dL (6.3-8.2) L 10/25/18 04:56 2.9 g/dL (3.9-5) L 10/25/18 04:56 1.0 % 10/25/18 04:56 Triglycerides 65 mg/dL (2-149) 10/24/18 15:44 Cholesterol 88 mg/dL (50-199) 10/24/18 15:44 36 mg/dL (50-130) L 10/24/18 15:44 47 mg/dL (40-59) 10/24/18 15:44 1.87 % 10/24/18 15:44 Vitamin B12 > 2000 pg/mL (211-911) H 10/27/18 10:49 TSH 2.350 mlU/mL (0.270-4.200) 10/27/18 10:49 PTH Intact 92.97 pg/mL (15-65) H 10/31/18 05:28 Yellow (Yellow) 10/24/18 22:18 Slightly-cloudy (Clear) 10/24/18 22:18 5.0 (5.0-7.0) 10/24/18 22:18 Ur Specific [place] 1.015 (1.003-1.030) 10/24/18 22:18 100 mg/dl mg/dL (Negative) 10/24/18 22:18 Neg mg/dL (Negative) 10/24/18 22:18 Neg mg/dL (Negative) 10/24/18 22:18 Neg (Negative) 10/24/18 22:18 Neg (Negative) 10/24/18 22:18 Neg (Negative) 10/24/18 22:18 2.0 mg/dL (<2.0) 10/24/18 22:18 Ur Leukocyte Esterase Neg (Negative) 10/24/18 22:18 4.0 /HPF (0.0-6.0) 10/24/18 22:18 4.0 /HPF (0.0-6.0) 10/24/18 22:18 Amorphous Crystals Few 10/24/18 22:18 Hyaline Casts 9 /LPF 10/24/18 22:18 Few /HPF 10/24/18 22:18 137.8 mg/dL (0.1-20.0) H 10/24/18 22:18 40 mmol/L 10/24/18 22:18 Active Medications - Current Medications Current Medications: Generic Name Dose Route Start Last Admin Trade Name Freq PRN Reason Stop Dose Admin Abacavir Sulfate 300 mg 10/27/18 10:00 10/31/18 10:03 Ziagen PO 300 mg BID KEN Administration Acetaminophen 650 mg 10/24/18 20:42 Tylenol PO Q4H PRN Pain MILD(1-3)/Fever >100.5/SIMMONS Albuterol 2.5 mg 10/24/18 20:42 Proventil IH Q4HRT PRN Shortness Of Breath Aspirin 81 mg 10/25/18 10:00 10/31/18 10:03 Baby Aspirin PO 81 mg QDAY KEN Administration Atorvastatin Calcium 20 mg 10/25/18 10:00 10/31/18 10:02 Lipitor PO 20 mg DAILY KEN Administration Dextrose 50 ml 10/24/18 20:53 D50w (25gm) Syringe IV PRN PRN Hypoglycemia Enoxaparin Sodium 40 mg 10/27/18 22:00 10/30/18 21:49 Lovenox SUB-Q 40 mg QDAY@2200 KEN Administration Hydralazine HCl 10 mg 10/27/18 14:00 10/31/18 05:59 Apresoline PO 10 mg Q8HR KEN Administration Insulin Human Lispro 0 unit 10/24/18 22:00 10/31/18 10:02 Humalog SUB-Q 2 unit ACHS KEN Administration Protocol Isosorbide Mononitrate 30 mg 11/01/18 10:00 Imdur PO QDAY KEN Lamivudine 150 mg 10/25/18 10:00 10/31/18 10:03 Epivir PO 150 mg DAILY KEN Administration Metoprolol Succinate 25 mg 10/27/18 10:00 10/31/18 10:02 Toprol Xl PO 25 mg QDAY KEN Administration Ondansetron HCl 4 mg 10/24/18 20:42 Zofran IV Q8H PRN Nausea And Vomiting Raltegravir 400 mg 10/24/18 22:00 10/31/18 10:03 Isentress PO 400 mg Q12HR KEN Administration Sodium Chloride 10 ml 10/24/18 22:00 10/31/18 10:02 Sodium Chloride Flush Syringe 10 Ml IV 10 ml BID KEN Administration Sodium Chloride 10 ml 10/24/18 20:42 Sodium Chloride Flush Syringe 10 Ml IV PRN PRN LINE FLUSH Zidovudine 300 mg 10/27/18 10:00 10/31/18 10:03 Retrovir PO 300 mg BID KEN Administration
[2018-10-31] MEDS: LOVENOX SUB-Q SCH (21:57)
--- NOTE | 2018-11-01 03:18 | Consultation ---
ROOM NUMBER: [id number]. HISTORY OF PRESENT ILLNESS: This is a 73-year-old black male that I was asked to be seen by Dr. Evans. The patient was evaluated earlier for profound metabolic problems, renal insufficiency and prior history of HIV. Specifically, I was asked to review over his CT scan and comment on whether there is a posterior fossa, pontine, medullary, midbrain abnormalities. 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 On evaluation, the patient did reveal he was confused, highly disoriented, at points agitated. He is unable to focus on the conversation. He has difficulty following simple commands, but nonetheless he is quite alert, able to track with his eye movements, he speaks to me, is relatively cooperative, although in the past he had been agitated and had to have mild restraints placed in his arms. He is not at all oriented to situation. His fund of information is very limited. He has difficulty reacting or responding to complex 2-part commands. He cannot follow very simple commands such as take out the tongue, hold up your hand. He does have symmetrical movements throughout. No tremors. No asterixis. No evidence of dystonia. No seizure activity is present. The visual zaragoza are full. I do not notice that he has any myoclonus or other speech abnormality typical of strokes, nor does he have an eye movement abnormality typical of a stroke either. IMPRESSION: This case represents a likely consequence of a profound metabolic disorder. Etiology is yet to be determined. With hypernatremia, one can see abnormalities in the marsha of a similar nature as visualized on the current imaging studies. His neurological examination is entirely consistent with his disorder. I specifically note that he has no limb weakness, no swallowing problem, no ocular movement disturbance that one would typically see with an ischemic pontine stroke, the type seen with small vessel disease and/or basilar artery occlusive disease. RECOMMENDATIONS: Continue correction of the electrolytes. I think this is critical at this point. Further assessment is being addressed and I noticed that Nephrology is following him very closely, which seems reasonable in order to correct his creatinine and make other adjustments in his fluid intake. Ordinarily, I do not think an LP is indicated. I do not believe that this condition within the marsha is related to his HIV. This is atypical, but obviously HIV can be associated with other neurological problems including neuronal degenerative disease, which is a late onset, is a tertiary effect of the disorder. [facility]# [id number] BRITTNEY/ANGI
[2018-11-01] MEDS: APRESOLINE PO SCH ×2 (05:32→14:11)
[2018-11-01 06:04] LABS: Hematocrit 37.6 % (35.5-45.6); Hemoglobin 12.2 gm/dl (11.8-15.2); Mean Corpuscular HGB Conc 33 % (32-34); Platelet Count 130 K/mm3 (140-440); Red Blood Count 3.26 M/mm3 (3.65-5.03); Red Cell Distribution Width 15.5 % (13.2-15.2)
[2018-11-01 06:13] LABS: Mean Corpuscular Volume 115 fl (84-94)
[2018-11-01 06:16] LABS: Calcium 8.7 mg/dL (8.4-10.2)
[2018-11-01] MEDS: HumaLOG SUB-Q SCH ×2 (08:00→13:12)
--- NOTE | 2018-11-01 09:26 | Progress Note ---
Assessment and Plan 1. 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 Renal function is overall stable with some fluctuation. Monitor renal function. Avoid nephrotoxic agents. Meds dosage based on GFR. 2. FEN: Hyperkalemia, improved. Metabolic acidosis, improved. Hypernatremia, improved. Monitor lytes. 3. Elevated Troponin: ?NSTEMI. Followed by Cards. 4. Severe dilated cardiomyopathy and chronic LV systolic dysfunction: Compensated. 5. HIV. 6. DM type 2. 7. HTN: Monitor BP. Subjective Date of service: 11/01/18 Principal diagnosis: Cardiomyopathy Interval history: Patient was seen and examined at the bedside. Doing ok. Objective - Vital Signs Vital signs: Vital Signs - 12hr 10/31/18 10/31/18 10/31/18 21:57 23:00 23:19 Temperature 97.5 F L Pulse Rate 97 H 72 Pulse Rate [ 97 H Apical] Respiratory 18 24 Rate Blood Pressure 110/70 110/58 O2 Sat by Pulse 100 99 Oximetry 10/31/18 11/01/18 11/01/18 23:41 00:51 03:09 Temperature 98.1 F 98.3 F Pulse Rate 68 73 Pulse Rate [ Apical] Respiratory 18 20 Rate Blood Pressure 106/68 113/66 O2 Sat by Pulse 99 100 94 Oximetry 11/01/18 11/01/18 05:32 08:02 Temperature 98.1 F Pulse Rate 73 Pulse Rate [ Apical] Respiratory 18 Rate Blood Pressure 113/66 107/78 O2 Sat by Pulse Oximetry - General Appearance General appearance: well-developed, appears stated age, other (no distress) EENT: ATNC, PERRL Neck: supple Respiratory: Present: Clear to Ascultation Cardiology: regular, S1S2, no murmurs Gastrointestinal: normoactive bowel sounds, no tenderness, no distended Integumentary: no rash, warm and dry Neurologic: no focal deficit, confused Musculoskeletal: other (no edema) - Lab 11/01/18 04:56 11/01/18 04:56 Most recent lab results Calcium 8.7 mg/dL (8.4-10.2) 11/01/18 04:56 Phosphorus 3.70 mg/dL (2.5-4.5) 10/27/18 04:02 Magnesium 2.40 mg/dL (1.7-2.3) H 10/27/18 04:02 137.8 mg/dL (0.1-20.0) H 10/24/18 22:18 40 mmol/L 10/24/18 22:18 Medications & Allergies - Medications Allergies/Adverse Reactions: Allergies No Known Allergies Allergy (Unverified 03/29/16 00:43) Home Medications: Home Medications Medication Instructions Recorded Confirmed Last Taken Type Aspirin [Aspirin BABY CHEW TAB] 81 mg PO QDAY #30 tab.chew 11/15/17 10/24/18 Unknown Rx Abacavir/Lamivudine/Zidovudine 1 tab PO DAILY 05/21/18 10/24/18 Unknown History Amlodipine Besylate 10 mg PO QDAY 05/21/18 10/24/18 Unknown History Carvedilol 6.25 mg PO BID 05/21/18 10/24/18 Unknown History Isentress 400 mg PO Q12HR 05/21/18 10/24/18 Unknown History Levemir Flextouch 60 unit SUB-Q QHS 05/21/18 10/24/18 Unknown History Lisinopril 40 mg PO DAILY 05/21/18 10/24/18 Unknown History Metformin HCl 500 mg PO BID 05/21/18 10/24/18 Unknown History Rosuvastatin Calcium 10 mg PO DAILY 05/21/18 10/24/18 Unknown History Tamsulosin HCl 0.4 mg PO HS 05/21/18 10/24/18 Unknown History Memantine [Namenda] 5 mg PO QDAY #30 tablet 11/01/18 Unknown Rx Active Medications: Generic Name Dose Route Start Last Admin Trade Name Anastasia PRN Reason Stop Dose Admin Abacavir Sulfate 300 mg 10/27/18 10:00 10/31/18 21:57 Ziagen PO 300 mg BID KEN Administration Acetaminophen 650 mg 10/24/18 20:42 Tylenol PO Q4H PRN Pain MILD(1-3)/Fever >100.5/SIMMONS Albuterol 2.5 mg 10/24/18 20:42 Proventil IH Q4HRT PRN Shortness Of Breath Aspirin 81 mg 10/25/18 10:00 10/31/18 10:03 Baby Aspirin PO 81 mg QDAY KEN Administration Atorvastatin Calcium 20 mg 10/25/18 10:00 10/31/18 10:02 Lipitor PO 20 mg DAILY KEN Administration Dextrose 50 ml 10/24/18 20:53 D50w (25gm) Syringe IV PRN PRN Hypoglycemia Enoxaparin Sodium 40 mg 10/27/18 22:00 10/31/18 21:57 Lovenox SUB-Q 40 mg QDAY@2200 KEN Administration Hydralazine HCl 10 mg 10/27/18 14:00 11/01/18 05:32 Apresoline PO 10 mg Q8HR KEN Administration Insulin Human Lispro 0 unit 10/24/18 22:00 10/31/18 22:52 Humalog SUB-Q 3 unit ACHS KEN Administration Protocol Isosorbide Mononitrate 30 mg 11/01/18 10:00 Imdur PO QDAY KEN Lamivudine 150 mg 10/25/18 10:00 10/31/18 10:03 Epivir PO 150 mg DAILY KEN Administration Metoprolol Succinate 25 mg 10/27/18 10:00 10/31/18 10:02 Toprol Xl PO 25 mg QDAY KEN Administration Ondansetron HCl 4 mg 10/24/18 20:42 Zofran IV Q8H PRN Nausea And Vomiting Raltegravir 400 mg 10/24/18 22:00 10/31/18 21:56 Isentress PO 400 mg Q12HR KEN Administration Sodium Chloride 10 ml 10/24/18 22:00 10/31/18 21:58 Sodium Chloride Flush Syringe 10 Ml IV 10 ml BID KEN Administration Sodium Chloride 10 ml 10/24/18 20:42 Sodium Chloride Flush Syringe 10 Ml IV PRN PRN LINE FLUSH Zidovudine 300 mg 10/27/18 10:00 10/31/18 21:57 Retrovir PO 300 mg BID KEN Administration
--- NOTE | 2018-11-01 09:47 | Progress Note ---
Assessment and Plan Altered mental status MR brain reports no acute infarct or acute intracranial abnormality. 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 Chronic lacunar infarct in the right paracentral marsha. Moderate chronic deep cerebral white matter microvascular angiopathic change. Hypernatremia Thrombocytopenia Non-specific troponin Cardiomyopathy, uncertain duration EF 15-20% patient declines further cardiac testing and only wishes medical therapy. Moderate to severe MR and TR Chronic Renal failure HIV Diabetes Recommendations: Continue medical therapy for dilated cardiomyopathy and chronic systolic heart failure. We will increase beta blockers for suppression of NSVT. Conservative cardiac medical management. Subjective Date of service: 11/01/18 Principal diagnosis: Cardiomyopathy Interval history: Patient appears lethargic. He has no complaints. Short burst of NSVT on telemetry. Patient remained asymptomatic. Objective Vital Signs Temp Pulse Pulse Resp BP Pulse Ox 11/01/18 08:02 98.1 F 18 107/78 11/01/18 05:32 73 113/66 11/01/18 03:09 98.3 F 73 20 113/66 94 11/01/18 00:51 100 10/31/18 23:41 98.1 F 68 18 106/68 99 10/31/18 23:19 97.5 F L 72 24 110/58 99 10/31/18 23:00 97 H 18 100 10/31/18 21:57 97 H 110/70 10/31/18 19:41 98.5 F 97 H 18 110/70 100 10/31/18 19:26 98 H 10/31/18 17:33 97.8 F 94 H 18 116/79 100 10/31/18 15:02 104 H 138/89 10/31/18 11:51 98.8 F 104 H 18 138/89 100 10/31/18 11:10 100 10/31/18 10:02 67 130/87 10/31/18 10:00 95 - Physical Examination General: No Apparent Distress HEENT: Positive: PERRL Neck: Positive: trachea midline Cardiac: Positive: Reg Rate and Rhythm Lungs: Positive: Decreased Breath Sounds Neuro: Positive: Grossly Intact Extremities: Present: +1 Edema - Labs and Meds CBC 11/01/18 Range/Units 04:56 WBC 4.8 (4.5-11.0) K/mm3 RBC 3.26 L (3.65-5.03) M/mm3 Hgb 12.2 (11.8-15.2) gm/dl Hct 37.6 (35.5-45.6) % Plt Count 130 L (140-440) K/mm3 Comprehensive Metabolic Panel 11/01/18 Range/Units 04:56 Sodium 145 (137-145) mmol/L Potassium 4.3 (3.6-5.0) mmol/L Chloride 109.5 H (98-107) mmol/L Carbon Dioxide 22 (22-30) mmol/L BUN 57 H (9-20) mg/dL Creatinine 2.0 H (0.8-1.5) mg/dL Glucose 193 H (75-100) mg/dL Calcium 8.7 (8.4-10.2) mg/dL
[2018-11-01] MEDS ORDERED: IMDUR PO SCH (10:00)
[2018-11-01] MEDS: ISENTRESS PO SCH (10:20)
[2018-11-01] MEDS: TOPROL XL PO SCH (10:20)
[2018-11-01] MEDS: ZIAGEN PO SCH (10:20)
[2018-11-01] MEDS: EPIVIR PO SCH (10:21)
[2018-11-01] MEDS: BABY ASPIRIN PO SCH (10:22)
[2018-11-01] MEDS: RETROVIR PO SCH (10:23)
[2018-11-01] MEDS: SODIUM CHLORIDE FLUSH SYRINGE 10 ML IV SCH (10:23)
[2018-11-01 14:12] VITALS: BP 121/77
--- NOTE | 2018-11-01 14:26 | Consultation ---
History of Present Illness - Reason for Consult Consult date: 11/01/18 Reason for consult: Mental Health Evaluation Requesting physician: PILAR MORALES - Chief Complaint Chief complaint: "Have you heard from my son" - History of Present Psychiatric Illness 72 y.o. AA male who presented to the ER for several complaints. Psychiatry was consulted because the patient maybe experiencing Delirium. Today the patient was calm, but somewhat confused during the assessment. He was unable to state why he was brought to the hospital. He was able to state his and the current [place] President, but didn't know his current location. He could not state the city he reside in, but was able to tell me he live nearby. He recalled 1/3 numbers within 5 mins. He is adamant that his son does not know he's in the hospital. Per the patient assigned nurse, the patient's son is aware of his father's whereabouts. She stated that the patient mental status have improved since his admission to the hospital. The patient denies SI/HI's and AVH's. At this time, the patient's insight is limited. Medications and Allergies Allergies Allergy/AdvReac Type Severity Reaction Status Date / Time No Known Allergies Allergy Unverified 03/29/16 00:43 Home Medications Medication Instructions Recorded Confirmed Last Taken Type Aspirin [Aspirin BABY CHEW TAB] 81 mg PO QDAY #30 tab.chew 11/15/17 10/24/18 Unknown Rx Abacavir/Lamivudine/Zidovudine 1 tab PO DAILY 05/21/18 10/24/18 Unknown History Amlodipine Besylate 10 mg PO QDAY 05/21/18 10/24/18 Unknown History Carvedilol 6.25 mg PO BID 05/21/18 10/24/18 Unknown History Isentress 400 mg PO Q12HR 05/21/18 10/24/18 Unknown History Levemir Flextouch 60 unit SUB-Q QHS 05/21/18 10/24/18 Unknown History Lisinopril 40 mg PO DAILY 05/21/18 10/24/18 Unknown History Metformin HCl 500 mg PO BID 05/21/18 10/24/18 Unknown History Rosuvastatin Calcium 10 mg PO DAILY 05/21/18 10/24/18 Unknown History Tamsulosin HCl 0.4 mg PO HS 05/21/18 10/24/18 Unknown History Active Meds: Active Medications Abacavir Sulfate (Ziagen) 300 mg PO BID [facility] Last Admin: 11/01/18 10:20 Dose: 300 mg Documented by: Acetaminophen (Tylenol) 650 mg PO Q4H PRN PRN Reason: Pain MILD(1-3)/Fever >100.5/SIMMONS Albuterol (Proventil) 2.5 mg IH Q4HRT PRN PRN Reason: Shortness Of Breath Aspirin (Baby Aspirin) 81 mg PO QDAY [facility] Last Admin: 11/01/18 10:22 Dose: 81 mg Documented by: Atorvastatin Calcium (Lipitor) 20 mg PO DAILY [facility] Last Admin: 11/01/18 10:20 Dose: 20 mg Documented by: Dextrose (D50w (25gm) Syringe) 50 ml IV PRN PRN PRN Reason: Hypoglycemia Enoxaparin Sodium (Lovenox) 40 mg SUB-Q QDAY@2200 [facility] Last Admin: 10/31/18 21:57 Dose: 40 mg Documented by: Hydralazine HCl (Apresoline) 10 mg PO Q8HR [facility] Last Admin: 11/01/18 14:11 Dose: 10 mg Documented by: Insulin Human Lispro (Humalog) 0 unit SUB-Q [facility]; Protocol Last Admin: 11/01/18 13:12 Dose: 6 unit Documented by: Isosorbide Mononitrate (Imdur) 30 mg PO QDAY [facility] Last Admin: 11/01/18 10:23 Dose: Not Given Documented by: Lamivudine (Epivir) 150 mg PO DAILY [facility] Last Admin: 11/01/18 10:21 Dose: 150 mg Documented by: Metoprolol Succinate (Toprol Xl) 50 mg PO QDAY [facility] Ondansetron HCl (Zofran) 4 mg IV Q8H PRN PRN Reason: Nausea And Vomiting Raltegravir (Isentress) 400 mg PO Q12HR [facility] Last Admin: 11/01/18 10:20 Dose: 400 mg Documented by: Sodium Chloride (Sodium Chloride Flush Syringe 10 Ml) 10 ml IV BID [facility] Last Admin: 11/01/18 10:23 Dose: 10 ml Documented by: Sodium Chloride (Sodium Chloride Flush Syringe 10 Ml) 10 ml IV PRN PRN PRN Reason: LINE FLUSH Zidovudine (Retrovir) 300 mg PO BID [facility] Last Admin: 11/01/18 10:23 Dose: 300 mg Documented by: Past psychiatric history - Past Medical History Past Medical History: HIV/AIDS, stroke Past Surgical History: Other (Unable to obtain ) - past Psychiatric treatment and history psychiatric treatment history: Denies a psy hx and fam psy hx. - Social History Social history: lives with family Mental Status Exam - Vital signs Last Vital Signs Temp 98.1 F 11/01/18 08:02 Pulse 66 11/01/18 14:11 Resp 21 11/01/18 10:00 BP 121/77 11/01/18 14:11 Pulse Ox 98 11/01/18 10:00 - Exam Narrative exam: MSE: Appearance: calm, cooperative Behavior: regular eye contact Speech: regular rate and tone Mood: "okay" Affect: congruent to mood Thought Process: circumstantial Thought Content: denies SI/HI's and AVH's Motor Activity: sitting up in bed Cognition: A/O x2, with slight confusion Insight: limited Judgment: variable to fair Results Result Diagrams: 11/01/18 04:56 11/01/18 04:56 Abnormal lab results 10/31/18 10/31/18 11/01/18 Range/Units 17:40 22:02 04:56 RBC 3.26 L (3.65-5.03) M/mm3 MCV 115 H (84-94) fl MCH 38 H (28-32) pg RDW 15.5 H (13.2-15.2) % Plt Count 130 L (140-440) K/mm3 Chloride (98-107) mmol/L BUN (9-20) mg/dL Creatinine (0.8-1.5) mg/dL Glucose (75-100) mg/dL POC Glucose 349 H 240 H (70-105) 11/01/18 11/01/18 Range/Units 04:56 07:36 RBC (3.65-5.03) M/mm3 MCV (84-94) fl MCH (28-32) pg RDW (13.2-15.2) % Plt Count (140-440) K/mm3 Chloride 109.5 H (98-107) mmol/L BUN 57 H (9-20) mg/dL Creatinine 2.0 H (0.8-1.5) mg/dL Glucose 193 H (75-100) mg/dL POC Glucose 182 H (70-105) All other labs normal. Assessment and Plan Assessment and plan: Impression: Delirium. Today the patient was calm, but somewhat confused during the assessment. CR 2.0. The patient's NA and Troponin levels were elevated on admission. Medical: Acute Metabolic Encephalopathy per the hospitalist Recommendation/Plan: Will follow up with the patient in 24 hours. Recommend Delirium precautions below: 1. Frequently reorient patient and involve him/her in their care (simple explanations of procedures, tests, medications). 2. Lights on and shades open during daytime hours. 3. Write date and goals of care in a visible place. 4. Try to avoid unnecessary interruptions to sleep during nighttime hours. 5. Obtain glasses, hearing aids from home if patient uses these at baseline. 6. Avoid medications that may exacerbate delirium (especially narcotics, benzodiazepines, barbiturates, ambien, lunesta, and medications with excessive anticholinergic properties). 7. Recommend Haldol 2 mg IM Q6hrs PRN for acute psychosis. Will staff with Dr Roselia Gonsalez.
--- NOTE | 2018-11-01 14:43 | Progress Note ---
Assessment and Plan Assessment and plan: Patient is a 73 yo man with a history of HIV, type 2 DM, CHF, Dementia and CVA with SAH after fall here at [facility] and transferred to [facility] on 05/23/18 per who presented to [facility] ED after he was found on the floor unresponsive, by a family member. Patient is unable to give history surrounding this event. Initial labs revealed multiple metabolic abnormalities including elevated creatinine, elevated troponin and also hyponatremia. Head CT scan reports ischemia in the right temporo-occipital region. Finding are new when compared to prior study done May 2018. Patient was admitted for further evaluation and management. * MR brain without IMPRESSION: 1. No acute infarct or acute intracranial abnormality. 2. 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 Chronic lacunar infarct in the right paracentral marsha. 3. Moderate chronic deep cerebral white matter microvascular angiopathic change. Acute Metabolic Encephalopathy, poa, ruled out CVA/TIA: Continue aspirin and statin Acute hypoxic respiratory failure, poa: continue to wean O2, suspect component of MIRANDA Acute systolic heart failure (congestive heart failure) 15-20%: Cardiology is following, input noted, Strict I/O, daily weight, afterload reduction, monitor uop q shift, supplemental oxygen, NSTEMI (non-ST elevated myocardial infarction) type 2, Likely from acute renal failure, Cardiology consulted in ED, medical management HIV (human immunodeficiency virus infection): continue antiretroviral therapy, supportive care Acute renal insufficiency, ATN + vasomotor nephropathy, poa: monitor uop q shift, nephrology consulted in ED, urine electrolytes, strict I/O, monitor uop q shift, monitor fluid balance, monitor serum creatnine, Type 2 DM uncontrolled hyperglycemia: treat with SSI, ADA Moderate malnutrition, poa: consult Handbag Operator Hypernatremia: Likely from dehydration, increased by mouth free water intake Hyperkalemia, kayexalate as needed, monitor bmp DVT prophylaxis: SCD to BLE while in bed, on sq lovenox Disposition: continue inpatient care, SNF pending==>d/w and son, they do not want SNF and wants to take him home with home health History Interval history: Patient was seen and examined. Follow-up on current diagnosis of AMS, improving but still in restraints. No overnight events reported to me. Patient denies any chest pain, shortness breath, nausea/vomiting or severe headaches. Imaging, nursing note, chart, labs and old chart reviewed. Discussed with patient. Hospitalist Physical - Physical exam Narrative exam: Gen: thin frail, chronically debilitated, awake, Orientated x 3 HEENT: NCAT, EOMI, PERRL, OP Clear Neck: supple, no adenopathy, no thyromegaly, no JVD CVS/Heart: Regular tachy normal S1S2, pulses present bilaterally Chest/Lungs: diminished bs bilateral, Symmetrical chest expansion, good air entry bilaterally GI/Abdomen: soft, NTND, good bowel sounds, no guarding or rebound /Bladder: no suprapubic tenderness, no CVA or paraspinal tenderness, +condom cath Extermity/Skin: no c/c/e, no obvious rash MSK: FROM x 4 Neuro: CN 2-12 grossly intact, no new focal deficits Psych: calm - Constitutional Vitals: Temp Pulse Resp BP Pulse Ox 98.1 F 66 21 121/77 98 11/01/18 08:02 11/01/18 14:11 11/01/18 10:00 11/01/18 14:11 11/01/18 10:00 General appearance: Present: no acute distress Results - Labs CBC & Chem 7: 11/01/18 04:56 11/01/18 04:56 Labs: Laboratory Last Values WBC 4.8 K/mm3 (4.5-11.0) 11/01/18 04:56 RBC 3.26 M/mm3 (3.65-5.03) L 11/01/18 04:56 Hgb 12.2 gm/dl (11.8-15.2) 11/01/18 04:56 Hct 37.6 % (35.5-45.6) 11/01/18 04:56 MCV 115 fl (84-94) H 11/01/18 04:56 MCH 38 pg (28-32) H 11/01/18 04:56 MCHC 33 % (32-34) 11/01/18 04:56 RDW 15.5 % (13.2-15.2) H 11/01/18 04:56 Plt Count 130 K/mm3 (140-440) L 11/01/18 04:56 Lymph % (Auto) 20.5 % (13.4-35.0) 10/26/18 04:34 Bonner % (Auto) 11.0 % (0.0-7.3) H 10/26/18 04:34 Eos % (Auto) 0.7 % (0.0-4.3) 10/26/18 04:34 Baso % (Auto) 0.3 % (0.0-1.8) 10/26/18 04:34 Lymph # 1.0 K/mm3 (1.2-5.4) L 10/26/18 04:34 Bonner # 0.5 K/mm3 (0.0-0.8) 10/26/18 04:34 Eos # 0.0 K/mm3 (0.0-0.4) 10/26/18 04:34 Baso # 0.0 K/mm3 (0.0-0.1) 10/26/18 04:34 Seg Neutrophils % 67.5 % (40.0-70.0) 10/26/18 04:34 Seg Neutrophils # 3.2 K/mm3 (1.8-7.7) 10/26/18 04:34 Heparin Anti-Xa Level 0.58 U.I./ml (0.3-0.7) 10/25/18 11:48 POC ABG pH 7.462 (7.35-7.45) H 10/30/18 16:32 POC ABG pO2 99 (80-105) 10/30/18 16:32 POC ABG HCO3 18.3 (22-26 mml/L) 10/30/18 16:32 POC ABG Total CO2 19 (23-27mmol/L) 10/30/18 16:32 POC ABG O2 Sat 98 10/30/18 16:32 POC ABG Base Excess -6 ((-2) - (+3)mmol/L) 10/30/18 16:32 28 % 10/30/18 16:32 Sodium 145 mmol/L (137-145) 11/01/18 04:56 Potassium 4.3 mmol/L (3.6-5.0) 11/01/18 04:56 Chloride 109.5 mmol/L (98-107) H 11/01/18 04:56 Carbon Dioxide 22 mmol/L (22-30) 11/01/18 04:56 18 mmol/L 11/01/18 04:56 BUN 57 mg/dL (9-20) H 11/01/18 04:56 2.0 mg/dL (0.8-1.5) H 11/01/18 04:56 Estimated GFR 40 ml/min 11/01/18 04:56 29 % 11/01/18 04:56 Glucose 193 mg/dL (75-100) H 11/01/18 04:56 POC Glucose 182 (70-105) H 11/01/18 07:36 Calcium 8.7 mg/dL (8.4-10.2) 11/01/18 04:56 Phosphorus 3.70 mg/dL (2.5-4.5) 10/27/18 04:02 Magnesium 2.40 mg/dL (1.7-2.3) H 10/27/18 04:02 0.40 mg/dL (0.1-1.2) 10/25/18 04:56 AST 72 units/L (5-40) H 10/25/18 04:56 ALT 73 units/L (7-56) H 10/25/18 04:56 282 units/L (35-129) H 10/25/18 04:56 276 units/L (55-170) H 10/24/18 15:44 0.493 ng/mL (0.00-0.029) H* 10/25/18 04:56 NT-Pro-B Natriuret Pep 14383 pg/mL (0-900) H 10/24/18 15:44 5.9 g/dL (6.3-8.2) L 10/25/18 04:56 2.9 g/dL (3.9-5) L 10/25/18 04:56 1.0 % 10/25/18 04:56 Triglycerides 65 mg/dL (2-149) 10/24/18 15:44 Cholesterol 88 mg/dL (50-199) 10/24/18 15:44 36 mg/dL (50-130) L 10/24/18 15:44 47 mg/dL (40-59) 10/24/18 15:44 1.87 % 10/24/18 15:44 Vitamin B12 > 2000 pg/mL (211-911) H 10/27/18 10:49 TSH 2.350 mlU/mL (0.270-4.200) 10/27/18 10:49 PTH Intact 92.97 pg/mL (15-65) H 10/31/18 05:28 Yellow (Yellow) 10/24/18 22:18 Slightly-cloudy (Clear) 10/24/18 22:18 5.0 (5.0-7.0) 10/24/18 22:18 Ur Specific [employer] 1.015 (1.003-1.030) 10/24/18 22:18 100 mg/dl mg/dL (Negative) 10/24/18 22:18 Neg mg/dL (Negative) 10/24/18 22:18 Neg mg/dL (Negative) 10/24/18 22:18 Neg (Negative) 10/24/18 22:18 Neg (Negative) 10/24/18 22:18 Neg (Negative) 10/24/18 22:18 2.0 mg/dL (<2.0) 10/24/18 22:18 Ur Leukocyte Esterase Neg (Negative) 10/24/18 22:18 4.0 /HPF (0.0-6.0) 10/24/18 22:18 4.0 /HPF (0.0-6.0) 10/24/18 22:18 Amorphous Crystals Few 10/24/18 22:18 Hyaline Casts 9 /LPF 10/24/18 22:18 Few /HPF 10/24/18 22:18 137.8 mg/dL (0.1-20.0) H 10/24/18 22:18 40 mmol/L 10/24/18 22:18 Active Medications - Current Medications Current Medications: Generic Name Dose Route Start Last Admin Trade Name Freq PRN Reason Stop Dose Admin Abacavir Sulfate 300 mg 10/27/18 10:00 11/01/18 10:20 Ziagen PO 300 mg BID KEN Administration Acetaminophen 650 mg 10/24/18 20:42 Tylenol PO Q4H PRN Pain MILD(1-3)/Fever >100.5/SIMMONS Albuterol 2.5 mg 10/24/18 20:42 Proventil IH Q4HRT PRN Shortness Of Breath Aspirin 81 mg 10/25/18 10:00 11/01/18 10:22 Baby Aspirin PO 81 mg QDAY KEN Administration Atorvastatin Calcium 20 mg 10/25/18 10:00 11/01/18 10:20 Lipitor PO 20 mg DAILY KEN Administration Dextrose 50 ml 10/24/18 20:53 D50w (25gm) Syringe IV PRN PRN Hypoglycemia Enoxaparin Sodium 40 mg 10/27/18 22:00 10/31/18 21:57 Lovenox SUB-Q 40 mg QDAY@2200 KEN Administration Hydralazine HCl 10 mg 10/27/18 14:00 11/01/18 14:11 Apresoline PO 10 mg Q8HR KEN Administration Insulin Human Lispro 0 unit 10/24/18 22:00 11/01/18 13:12 Humalog SUB-Q 6 unit ACHS KEN Administration Protocol Isosorbide Mononitrate 30 mg 11/01/18 10:00 11/01/18 10:23 Imdur PO Not Given QDAY KEN Lamivudine 150 mg 10/25/18 10:00 11/01/18 10:21 Epivir PO 150 mg DAILY KEN Administration Metoprolol Succinate 50 mg 11/02/18 10:00 Toprol Xl PO QDAY KEN Ondansetron HCl 4 mg 10/24/18 20:42 Zofran IV Q8H PRN Nausea And Vomiting Raltegravir 400 mg 10/24/18 22:00 11/01/18 10:20 Isentress PO 400 mg Q12HR KEN Administration Sodium Chloride 10 ml 10/24/18 22:00 11/01/18 10:23 Sodium Chloride Flush Syringe 10 Ml IV 10 ml BID KEN Administration Sodium Chloride 10 ml 10/24/18 20:42 Sodium Chloride Flush Syringe 10 Ml IV PRN PRN LINE FLUSH Zidovudine 300 mg 10/27/18 10:00 11/01/18 10:23 Retrovir PO 300 mg BID KEN Administration Nutrition/Malnutrition Assess - Dietary Evaluation Nutrition/Malnutrition Findings: Nutrition Notes Start: 10/31/18 16:32 Freq: Status: Active Protocol: Document 11/01/18 11:33 LP (Rec: 11/01/18 11:34 LP [id number]) Nutrition Notes Need for Assessment generated from: MD Order Initial or Follow up Brief Note Subjective/Other Information Consult for malnutrition. Pt already being followed. Nutrition Intervention Follow-Up By: 11/02/18
--- NOTE | 2018-11-01 14:49 | Discharge Summary ---
Providers - Providers Date of Admission: 10/24/18 20:42 Date of discharge: 11/01/18 Attending physician: GUILLE BROWN 10/24/18 Consult to Cardiac Rehabilitation [CONS] Routine Reason For Exam: Phase I 10/24/18 20:42 Consult to Cardiology [CONS] Routine Consulting Provider: KATLIN LEDEZMA Reason For Exam: chf 10/24/18 20:51 Consult to Physician [CONS] Routine Comment: I spoke with Dr. Leo see consult documentation Consulting Provider: CHRISTINE LEO Physician Instructions: [id number] Leo Reason For Exam: CONNIE 10/27/18 09:52 Consult to Physician [CONS] Routine Comment: Consulting Provider: MARIA E THOMAS Physician Instructions: Reason For Exam: acute cva 10/29/18 14:01 Consult to Mental Health [CONS] Routine Reason For Exam: delirium Place consult to:: mental health Notified:: in house 10/29/18 14:02 Physical Therapy Evaluation and Treat [CONS] Routine Comment: Reason For Exam: placement 10/31/18 14:01 Consult to Dietitian/Nutrition [CONS] Routine Physician Instructions: Reason For Exam: Reason for Consult: Malnutrition Primary care physician: TRAFFIC SAFETY ADMINISTRATOR Hospitalization Condition: Fair Hospital course: Patient is a 73 yo man with a history of HIV, type 2 DM, CHF, Dementia and CVA with SAH after fall here at [facility] and transferred to [facility] on 05/23/18 per who presented to [facility] ED after he was found on the floor unresponsive, by a family member. Patient is unable to give history surrounding this event. Initial labs revealed multiple metabolic abnormalities including elevated creatinine, elevated troponin and also hyponatremia. Head CT scan reports ischemia in the right temporo-occipital region. Finding are new when compared to prior study done May 2018. Patient was admitted for further evaluation and management. * MR brain without IMPRESSION: 1. No acute infarct or acute intracranial abnormality. 2. 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 Chronic lacunar infarct in the right paracentral marsha. 3. Moderate chronic deep cerebral white matter microvascular angiopathic change. Acute Metabolic Encephalopathy, poa, ruled out CVA/TIA: Continue aspirin and statin Acute hypoxic respiratory failure, poa: continue to wean O2, suspect component of MIRANDA Acute on chronic systolic heart failure (congestive heart failure) 15-20%: and son states he will Follow up with his doctors at [place], Cardiology is follow ing, input noted, NSTEMI (non-ST elevated myocardial infarction) type 2, Likely from acute renal failure, Cardiology consulted in ED, medical management HIV (human immunodeficiency virus infection): continue antiretroviral therapy, supportive care Acute renal insufficiency, ATN + vasomotor nephropathy, poa: monitor uop q sh ift, nephrology consulted in ED, urine electrolytes, strict I/O, monitor uop q shift, monitor fluid balance, monitor serum creatnine, Type 2 DM uncontrolled hyperglycemia: treat with SSI, ADA Moderate malnutrition, poa: consult Case Preparer And Liner Hypernatremia: Likely from dehydration, increased by mouth free water intake Hyperkalemia, kayexalate as needed, monitor bmp DVT prophylaxis: SCD to BLE while in bed, on sq lovenox Disposition: continue inpatient care, SNF pending==>d/w (who provided additional history as above) and son, they do not want SNF and wants to take him home with home health. wants patient on something for Dementia as doctors at [place] told her he had dementia, they ran some test and patient was to return on Monday, November 05. Disposition: [id number] HOME UNDER HOME [facility] Time spent for discharge: 32 minutes Core Measure Documentation - Palliative Care Palliative Care/ Comfort Measures: Not Applicable - Core Measures Any of the following diagnoses?: heart failure - VTE Discharge Requirements Deep Vein Thrombosis/Pulmonary Embolism Present on Admission: No Has pt received <5 days of overlap therapy or INR<2.0: No Anticoagulant overlap therapy prescribed at discharge: No Contraindication No Overlap Therapy order at DC: Not Indicated - Heart Failure Discharge Requirements GORDON/ARB for LVSD if EF <40%: Yes Beta rosalva at discharge: Yes Exam - Physical Exam Narrative exam: Gen: thin frail, chronically debilitated, awake, Orientated x 3 HEENT: NCAT, EOMI, PERRL, OP Clear Neck: supple, no adenopathy, no thyromegaly, no JVD CVS/Heart: Regular tachy normal S1S2, pulses present bilaterally Chest/Lungs: diminished bs bilateral, Symmetrical chest expansion, good air entry bilaterally GI/Abdomen: soft, NTND, good bowel sounds, no guarding or rebound /Bladder: no suprapubic tenderness, no CVA or paraspinal tenderness, +condom cath Extermity/Skin: no c/c/e, no obvious rash MSK: FROM x 4 Neuro: CN 2-12 grossly intact, no new focal deficits Psych: calm - Constitutional Vitals: Temp Pulse Resp BP Pulse Ox 98.1 F 66 21 121/77 98 11/01/18 08:02 11/01/18 14:11 11/01/18 10:00 11/01/18 14:11 11/01/18 10:00 Plan Activity: up only with assistance, fall precautions, other (no strenous activity) Diet: low salt, diabetic Special Instructions: record daily BP diary, record blood sugar diary (twice daily, morning and night) Follow up with: PRIMARY CAREMD [Primary Care Provider] - 3-5 Days [facility] [Outside] - 11/05/18 Forms: Accompanied Note Prescriptions: Memantine [Namenda] 5 mg PO QDAY #30 tablet
[2018-11-02] MEDS ORDERED: TOPROL XL PO SCH (10:00)
== END 2018-11-01 17:07 | disposition home health service (06) | DRG 280 ==
LOC: ED 14:53 → IMCU 20:42 → CC1 22:26 → 4A 10-26 16:35
PROVIDERS: ADMIT Internal Medicine; ATTEND Internal Medicine
PROC: 4A033R1 Measurement of Arterial Saturation, Peripheral, Percutaneous Approach (ICD-10-PCS; principal; 2018-10-30)
DX: I21.A1 Myocardial infarction type 2 (principal); G93.41 Metabolic encephalopathy; J96.01 Acute respiratory failure with hypoxia; I50.23 Acute on chronic systolic (congestive) heart failure; N17.0 Acute kidney failure with tubular necrosis; B20 Human immunodeficiency virus [HIV] disease; E87.2 Acidosis; I13.0 Hypertensive heart and chronic kidney disease with heart failure and stage 1 through stage 4 chronic kidney disease, or unspecified chronic kidney disease; E87.0 Hyperosmolality and hypernatremia; E44.0 Moderate protein-calorie malnutrition; N18.4 Chronic kidney disease, stage 4 (severe); I42.0 Dilated cardiomyopathy; I08.1 Rheumatic disorders of both mitral and tricuspid valves; Z96.649 Presence of unspecified artificial hip joint; E87.5 Hyperkalemia; E11.22 Type 2 diabetes mellitus with diabetic chronic kidney disease; F17.200 Nicotine dependence, unspecified, uncomplicated; F03.90 Unspecified dementia, unspecified severity, without behavioral disturbance, psychotic disturbance, mood disturbance, and anxiety; E11.65 Type 2 diabetes mellitus with hyperglycemia; C61 Malignant neoplasm of prostate; J43.9 Emphysema, unspecified; E78.5 Hyperlipidemia, unspecified; Z83.3 Family history of diabetes mellitus; Z82.49 Family history of ischemic heart disease and other diseases of the circulatory system; Z79.82 Long term (current) use of aspirin; Z86.73 Personal history of transient ischemic attack (TIA), and cerebral infarction without residual deficits; Z79.899 Other long term (current) drug therapy; Z68.20 Body mass index [BMI] 20.0-20.9, adult; Z79.84 Long term (current) use of oral hypoglycemic drugs
CPT/HCPCS: 36415; 36600; 70450; 70551; 71045; 74176; 76770; 80048; 80053; 80061; 81001; 82550; 82570; 82607; 82803; 82962; 83735; 83880; 83970; 84100; 84300; 84443; 84484; 85025; 85027; 85520; 93005; 93010; 93306; 94760; 96372; G0378; A9270-GY; J1644; J1650; J1815; J1940; J7030

== ENCOUNTER 2018-11-03 13:50 | Inpatient (IN) | payer MEDICARE ==
[2018-11-03] MEDS ORDERED: NACL 0.9% 500 ML 500 ML IV ONE (13:56)
[2018-11-03] MEDS ORDERED: D50W (25GM) Syringe IV ONE ×2 (14:09→14:12)
[2018-11-03] MEDS ORDERED: D50W (25GM) Syringe IV PRN (14:12)
--- NOTE | 2018-11-03 14:23 | Emergency Department Report ---
ED General Adult HPI - General Chief complaint: Hypoglycemia Stated complaint: LOW BLOOD SUGAR Time Seen by Provider: 11/03/18 14:02 Source: patient, family, EMS (ems notes not available at time of chart dictation), RN notes reviewed, old records reviewed Mode of arrival: Stretcher Limitations: Altered Mental Status, Physical Limitation - History of Present Illness Initial comments: This is a 73-year-old gentleman. The patient is not known to this provider previously. His past medical history includes HIV, type 2 diabetes, CHF, dementia, stroke, reported history of traumatic subarachnoid hemorrhage Patient brought to the hospital by EMS after family reports that he's been altered for the past day and a half to 2 days, having shallow breathing, and does not appear to be himself. Patient was recently discharged from this hospital for acute metabolic encephalopathy, suspected hypoxemic respiratory failure, acute myocardial infarction, vasomotor nephropathy The patient was apparently hypoglycemic in the field, and given dextrose by EMS. His sugar was 17, then in the 120s, and then again drops 260s. Recent discharge medications indicate the patient takes metformin, and antiviral therapy. He also takes antihypertensive therapy. His family reports that he's been speaking nonsensically, but that he has not fallen. The symptoms are constant, and as per family, they appear to be painless, did not radiate anywhere, did not appear to have exacerbating or relieving factors. The patient is awake, follows commands, indicates that he is not having any pain, but is unable to further elaborate. -: days(s) Severity scale (0 -10): 0 Consistency: constant Improves with: none, other Worsens with: none, other - Related Data Home Medications Medication Instructions Recorded Confirmed Last Taken Abacavir/Lamivudine/Zidovudine 1 tab PO DAILY 05/21/18 11/03/18 Unknown Amlodipine Besylate 10 mg PO QDAY 05/21/18 11/03/18 Unknown Carvedilol 6.25 mg PO BID 05/21/18 11/03/18 Unknown Isentress 400 mg PO Q12HR 05/21/18 11/03/18 Unknown Levemir Flextouch 60 unit SUB-Q QHS 05/21/18 11/03/18 Unknown Lisinopril 40 mg PO DAILY 05/21/18 11/03/18 Unknown Metformin HCl 500 mg PO BID 05/21/18 11/03/18 Unknown Rosuvastatin Calcium 10 mg PO DAILY 05/21/18 11/03/18 Unknown Tamsulosin HCl 0.4 mg PO HS 05/21/18 11/03/18 Unknown Previous Rx's Medication Instructions Recorded Last Taken Type Aspirin [Aspirin BABY CHEW TAB] 81 mg PO QDAY #30 tab.chew 11/15/17 Unknown Rx Memantine [Namenda] 5 mg PO QDAY #30 tablet 11/01/18 Unknown Rx Allergies Allergy/AdvReac Type Severity Reaction Status Date / Time No Known Allergies Allergy Unverified 03/29/16 00:43 ED Review of Systems ROS: Stated complaint: LOW BLOOD SUGAR Other details as noted in HPI Comment: Unobtainable due to pts medical conditions (ros as per family) Constitutional: malaise, weakness Cardiovascular: denies: syncope Gastrointestinal: denies: nausea, vomiting Neurological: weakness, confusion ED Past Medical Hx - Past Medical History Hx Hypertension: Yes Hx CVA: Yes (x2) Hx Diabetes: Yes Hx COPD: Yes Hx HIV: Yes Additional medical history: prostate cancer, hyperlipidemia, emphysema - Surgical History Additional Surgical History: vincenzo hip surgery - Social History Smoking Status: Unknown if ever smoked - Medications Home Medications: Home Medications Medication Instructions Recorded Confirmed Last Taken Type Aspirin [Aspirin BABY CHEW TAB] 81 mg PO QDAY #30 tab.chew 11/15/17 11/03/18 Unknown Rx Abacavir/Lamivudine/Zidovudine 1 tab PO DAILY 05/21/18 11/03/18 Unknown History Amlodipine Besylate 10 mg PO QDAY 05/21/18 11/03/18 Unknown History Carvedilol 6.25 mg PO BID 05/21/18 11/03/18 Unknown History Isentress 400 mg PO Q12HR 05/21/18 11/03/18 Unknown History Levemir Flextouch 60 unit SUB-Q QHS 05/21/18 11/03/18 Unknown History Lisinopril 40 mg PO DAILY 05/21/18 11/03/18 Unknown History Metformin HCl 500 mg PO BID 05/21/18 11/03/18 Unknown History Rosuvastatin Calcium 10 mg PO DAILY 05/21/18 11/03/18 Unknown History Tamsulosin HCl 0.4 mg PO HS 05/21/18 11/03/18 Unknown History Memantine [Namenda] 5 mg PO QDAY #30 tablet 11/01/18 11/03/18 Unknown Rx ED Physical Exam - General Limitations: Altered Mental Status, Physical Limitation General appearance: in no apparent distress, other (the patient is listless but responsive.) - Head Head exam: Present: atraumatic, normocephalic - Eye Eye exam: Present: normal appearance, EOMI - ENT ENT exam: Present: mucous membranes dry, normal external ear exam - Neck Neck exam: Present: normal inspection, full ROM. Absent: tenderness, meningismus - Respiratory Respiratory exam: Present: decreased breath sounds. Absent: respiratory distress, wheezes, rales, rhonchi, stridor - Cardiovascular Cardiovascular Exam: Present: regular rate, normal rhythm, normal heart sounds. Absent: bradycardia, tachycardia, irregular rhythm, systolic murmur, diastolic murmur, rubs, gallop - GI/Abdominal GI/Abdominal exam: Present: soft. Absent: distended, tenderness, guarding, rebound, rigid, pulsatile mass - Rectal Rectal exam: Present: normal inspection, other (chaperoned by nurse Tiago Pennington) - exam: Present: normal inspection External exam: Present: other (chaperoned by nurse Tiago Pennington) - Extremities Exam Extremities exam: Present: normal inspection, other - Back Exam Back exam: Present: normal inspection. Absent: tenderness, CVA tenderness (R) - Neurological Exam Neurological exam: Present: altered, other (is no facial droop. The patient moves 4 extremities spontaneously and to command. The patient answers some simple yes no questions. There is normal phonation. The extraocular movements are intact. Sensation is intact to light touch in 4 extremities) - Psychiatric Psychiatric exam: Present: normal affect, normal mood - Skin Skin exam: Present: warm, dry, intact, normal color. Absent: rash ED Course Vital Signs 11/03/18 11/03/18 11/03/18 13:50 14:32 14:35 Temperature 96.1 F L Pulse Rate Respiratory 24 Rate Blood Pressure Blood Pressure 140/96 [Left] O2 Sat by Pulse Oximetry 11/03/18 11/03/18 11/03/18 15:03 16:00 17:54 Temperature 96.5 F L 97.8 F Pulse Rate 105 H 103 H Respiratory 18 20 Rate Blood Pressure 117/85 Blood Pressure 125/88 [Left] O2 Sat by Pulse 100 98 Oximetry - Reevaluation(s) Reevaluation #1: 11/03/18 14:31 Differential diagnosis, including but not limited to: Intracranial lesio n/injury, pneumonia, urinary tract infection, thyroid derangement, renal derangement, metabolic derangement, hypoglycemia a Assessment and plan: 73-year-old gentleman, multiple chronic medical issues, with recurrent hypoglycemia, likely multifactorial, likely secondary to dementia, medication, possible poor oral intake. The patient has a nonfocal motor exam, he is afebrile, and he follows commands. The gag reflex, and he is taking his airway at this time. He is saturating appropriately on room air. Screening laboratory studies, x-ray of the chest, urinalysis have been ordered. Accu-Cheks every one hour have been ordered. Dextro strip has been ordered. D50 has been ordered. Plan to admit the patient to the medical service for glycemic monitoring, and further inpatient care. Given advanced age, multiple medical comorbidities, underlying dementia, the patient may benefit from discontinuation of his diabetic medications. However, we will defer this decision to the inpatient team. Discussed plan of care for admission with patient's family. Reevaluation #2: 11/03/18 15:24 ct head negative moving [address] Eduar Garduno Accepts ED Medical Decision Making - Lab Data Result diagrams: 11/03/18 14:07 11/03/18 14:07 Vital Signs 11/03/18 11/03/18 13:50 14:32 Temperature 96.1 F L Blood Pressure 140/96 [Left] Lab Results 11/03/18 Range/Units 14:09 POC ABG pH 7.393 (7.35-7.45) POC ABG pCO2 34.8 L (35-45) POC ABG pO2 157 H (80-105) POC ABG HCO3 21.2 (22-26 mml/L) POC ABG Total CO2 22 (23-27mmol/L) POC ABG O2 Sat 99 POC ABG Base Excess -4 ((-2) - (+3)mmol/L) FiO2 100 % Critical care attestation.: If time is entered above; I have spent that time in minutes in the direct care of this critically ill patient, excluding procedure time. ED Disposition Clinical Impression: Encephalopathy, Hypoglycemia, HIV (human immunodeficiency virus infection) Disposition: OP ADMIT IP TO THIS HOSP Is pt being admited?: Yes Does the pt Need Aspirin: No Condition: Fair
[2018-11-03 14:59] LABS: Albumin 3.4 g/dL (3.9-5); Calcium 9.5 mg/dL (8.4-10.2)
[2018-11-03] MEDS ORDERED: D5/0.45NS 1,000 ML IV SCH (15:00)
--- NOTE | 2018-11-03 15:06 | Cat Scan Report ---
CT head without contrast Coronal history: Altered mental status. FINDINGS: There is extensive cerebral white matter disease most consistent with microvascular angiopa thy. There are old infarcts involving the right parietal and occipital lobes which extends into the s ubcortical regions at. There is also an old infarct within the right marsha at. The above findings radha elate with the previous CT of 10/24/2018. There is no definitive CT evidence of acute intracranial hem orrhage or significant mass effect. There is moderate cerebral atrophy with associated mild prominence of the ventricular system which ap pears unchanged at. The visualized paranasal sinuses are clear. All CT scans at this location are per formed using the CT dose reduction for ALARA by means of automated exposure control. IMPRESSION: There is continued extensive microvascular angiopathy as detailed above without CT evidence of acute intracranial hemorrhage. Signer Name: Berlin Esqueda MD Signed: 11/03/2018 3:02 PM Workstation Name: [id number]
[2018-11-03 15:10] LABS: Basophils % (Auto) 0.2 % (0.0-1.8); Hematocrit 39.6 % (35.5-45.6); Hemoglobin 12.9 gm/dl (11.8-15.2); Lymphocytes # (Auto) 0.4 K/mm3 (1.2-5.4); Lymphocytes % (Auto) 8.6 % (13.4-35.0); Mean Corpuscular HGB Conc 33 % (32-34); Monocytes # (Auto) 0.2 K/mm3 (0.0-0.8); Monocytes % (Auto) 4.9 % (0.0-7.3); Platelet Count 122 K/mm3 (140-440); Red Blood Count 3.44 M/mm3 (3.65-5.03)
[2018-11-03 15:12] LABS: Mean Corpuscular Volume 115 fl (84-94)
[2018-11-03 15:49] LABS: Bacteria,Urine 1+ /HPF (Negative); Bilirubin,Urine NEG (Negative); Blood,Urine SM (Negative); Color,Urine Yellow (Yellow); Mucus,Urine FEW /HPF; RBC,Urine < 1.0 /HPF (0.0-6.0); Urobilinogen,Urine < 2.0 mg/dL (<2.0)
[2018-11-03 16:08] LABS: Protein,Urine >500 mg/dL (Negative)
[2018-11-03 16:25] LABS: INR 1.24 (0.87-1.13)
--- NOTE | 2018-11-03 16:51 | XRay Report ---
CHEST 1 VIEW INDICATION / CLINICAL INFORMATION: possible Sepsis. COMPARISON: Chest radiograph 10/27/2018 FINDINGS: Stable cardiomediastinal silhouette with atherosclerotic calcification in the aortic arch. Low lung v olumes with bronchovascular crowding and prominence of central/hilar pulmonary vessels. A dense left retrocardiac opacity again opacifies much of the left hemidiaphragm. No pneumothorax. IMPRESSION: 1. Left retrocardiac opacity represents platelike atelectasis with or without layering of a small ple ural effusion. Appearance is stable since 10/27/2018; thus pneumonia is felt less likely. Signer Name: Og Sotomayor MD Signed: 11/03/2018 4:46 PM Workstation Name: [id number]
--- NOTE | 2018-11-03 19:44 | History and Physical Report ---
History of Present Illness Date of examination: 11/03/18 Date of admission: 11/03/18 15:25 Chief complaint: Altered sensorium for the last 36-48 hours Low blood glucose levels on the field. History of present illness: 73-year-old -[place] male has been lethargic and confused for the last 2 days. Patient has history of HIV, type 2 diabetes, CHF, cerebrovascular accident, dementia and traumatic subarachnoid hemorrhage. Family reports that patient has been lethargic and having shallow breathing for the last 36-48 hours. No fever or chills. Patient's blood glucose level was very low as per the EMS. Around 17. Was given V84L--bbpo which the patient's blood glucose came up to around 120s. And then dropped again. Patient was recently discharged after being treated for acute metabolic encephalopathy, suspected hypoxemic respiratory failure, acute MA and vasomotor nephropathy. Patient takes antiretrovirals for HIV. Past Medical History Hypertension CVA: x2 Diabetes COPD HIV Additional medical history: prostate cancer, hyperlipidemia, emphysema Surgical History Additional Surgical History: vincenzo hip surgery Social History Smoking Status: Unknown if ever smoked Medications Home Medications: Home Medications Medication Instructions Recorded Confirmed Last Taken Type Aspirin [Aspirin BABY CHEW TAB] 81 mg PO QDAY #30 tab.chew 11/15/17 11/03/18 Unknown Rx Abacavir/Lamivudine/Zidovudine 1 tab PO DAILY 05/21/18 11/03/18 Unknown History Amlodipine Besylate 10 mg PO QDAY 05/21/18 11/03/18 Unknown History Carvedilol 6.25 mg PO BID 05/21/18 11/03/18 Unknown History Isentress 400 mg PO Q12HR 05/21/18 11/03/18 Unknown History Levemir Flextouch 60 unit SUB-Q QHS 05/21/18 11/03/18 Unknown History Lisinopril 40 mg PO DAILY 05/21/18 11/03/18 Unknown History Metformin HCl 500 mg PO BID 05/21/18 11/03/18 Unknown History Rosuvastatin Calcium 10 mg PO DAILY 05/21/18 11/03/18 Unknown History Tamsulosin HCl 0.4 mg PO HS 05/21/18 11/03/18 Unknown History Memantine [Namenda] 5 mg PO QDAY #30 tablet 11/01/18 11/03/18 Unknown Rx Review of systems ROS: Stated complaint: LOW BLOOD SUGAR Other details as noted in HPI Comment: Unobtainable due to pts medical conditions (ros as per family) Constitutional: malaise, weakness Cardiovascular: denies: syncope Gastrointestinal: denies: nausea, vomiting Neurological: weakness, confusion 14 point review of systems was attempted but could not be done because of the patient's mental status. Patient has some respiratory distress Medications and Allergies Allergies Allergy/AdvReac Type Severity Reaction Status Date / Time No Known Allergies Allergy Unverified 03/29/16 00:43 Home Medications Medication Instructions Recorded Confirmed Last Taken Type Aspirin [Aspirin BABY CHEW TAB] 81 mg PO QDAY #30 tab.chew 11/15/17 11/03/18 Unknown Rx Abacavir/Lamivudine/Zidovudine 1 tab PO DAILY 05/21/18 11/03/18 Unknown History Amlodipine Besylate 10 mg PO QDAY 05/21/18 11/03/18 Unknown History Carvedilol 6.25 mg PO BID 05/21/18 11/03/18 Unknown History Isentress 400 mg PO Q12HR 05/21/18 11/03/18 Unknown History Levemir Flextouch 60 unit SUB-Q QHS 05/21/18 11/03/18 Unknown History Lisinopril 40 mg PO DAILY 05/21/18 11/03/18 Unknown History Metformin HCl 500 mg PO BID 05/21/18 11/03/18 Unknown History Rosuvastatin Calcium 10 mg PO DAILY 05/21/18 11/03/18 Unknown History Tamsulosin HCl 0.4 mg PO HS 05/21/18 11/03/18 Unknown History Memantine [Namenda] 5 mg PO QDAY #30 tablet 11/01/18 11/03/18 Unknown Rx Active Meds: Active Medications Dextrose (D50w (25gm) Syringe) 50 ml IV PRN PRN PRN Reason: Hypoglycemia Dextrose/Sodium Chloride (D5/0.45ns) 1,000 mls @ 100 mls/hr IV DIRECT KEN Last Admin: 11/03/18 15:35 Dose: 100 mls/hr Documented by: Exam - Physical Exam Narrative exam: Lying in bed lethargic - Constitutional Vitals: Temp Pulse Resp BP Pulse Ox 97.8 F 103 H 20 117/85 98 11/03/18 17:54 11/03/18 17:54 11/03/18 17:54 11/03/18 17:54 11/03/18 17:54 General appearance: Present: mild distress - EENT Eyes: Present: PERRL ENT: other (dry mucous membranes) - Neck Neck: Present: supple, normal ROM - Respiratory Respiratory effort: normal Respiratory: bilateral: CTA - Cardiovascular Heart rate: 105 Rhythm: regular Heart Sounds: Present: S1 & S2. Absent: rub, click - Extremities Extremities: no ischemia, pulses intact, pulses symmetrical, No edema Peripheral Pulses: within normal limits - Abdominal General gastrointestinal: Present: soft, non-tender, non-distended, normal bowel sounds Male genitourinary: Present: normal - Integumentary Integumentary: Present: clear, warm, dry - Musculoskeletal Musculoskeletal: generalized weakness, other (patient is lethargic and decreased responsiveness) - Psychiatric Psychiatric: other (patient is lethargic and decreased responsiveness) - Neurologic Neurologic: moves all extremities, other (neuro status could not be assessed properly because of the patient's lethargy) - Allied Health Allied health notes reviewed: nursing, case management Results - Labs CBC & Chem 7: 11/03/18 14:07 11/03/18 14:07 Labs: Laboratory Last Values WBC 4.1 K/mm3 (4.5-11.0) L 11/03/18 14:07 RBC 3.44 M/mm3 (3.65-5.03) L 11/03/18 14:07 Hgb 12.9 gm/dl (11.8-15.2) 11/03/18 14:07 Hct 39.6 % (35.5-45.6) 11/03/18 14:07 MCV 115 fl (84-94) H 11/03/18 14:07 MCH 38 pg (28-32) H 11/03/18 14:07 MCHC 33 % (32-34) 11/03/18 14:07 RDW 15.0 % (13.2-15.2) 11/03/18 14:07 Plt Count 122 K/mm3 (140-440) L 11/03/18 14:07 Lymph % (Auto) 8.6 % (13.4-35.0) L 11/03/18 14:07 [place] % (Auto) 4.9 % (0.0-7.3) 11/03/18 14:07 Eos % (Auto) 0.0 % (0.0-4.3) 11/03/18 14:07 Baso % (Auto) 0.2 % (0.0-1.8) 11/03/18 14:07 Lymph # 0.4 K/mm3 (1.2-5.4) L 11/03/18 14:07 [place] # 0.2 K/mm3 (0.0-0.8) 11/03/18 14:07 Eos # 0.0 K/mm3 (0.0-0.4) 11/03/18 14:07 Baso # 0.0 K/mm3 (0.0-0.1) 11/03/18 14:07 Seg Neutrophils % 86.3 % (40.0-70.0) H 11/03/18 14:07 Seg Neutrophils # 3.5 K/mm3 (1.8-7.7) 11/03/18 14:07 PT 15.3 Sec. (12.2-14.9) H 11/03/18 15:50 INR 1.24 (0.87-1.13) H 11/03/18 15:50 POC ABG pH 7.393 (7.35-7.45) 11/03/18 14:09 POC ABG pCO2 34.8 (35-45) L 11/03/18 14:09 POC ABG pO2 157 (80-105) H 11/03/18 14:09 POC ABG HCO3 21.2 (22-26 mml/L) 11/03/18 14:09 POC ABG Total CO2 22 (23-27mmol/L) 11/03/18 14:09 POC ABG O2 Sat 99 11/03/18 14:09 POC ABG Base Excess -4 ((-2) - (+3)mmol/L) 11/03/18 14:09 VBG pH 7.344 (7.320-7.420) 11/03/18 15:50 100 % 11/03/18 14:09 Sodium 148 mmol/L (137-145) H 11/03/18 14:07 Potassium 5.0 mmol/L (3.6-5.0) 11/03/18 14:07 Chloride 112.5 mmol/L (98-107) H 11/03/18 14:07 Carbon Dioxide 23 mmol/L (22-30) 11/03/18 14:07 18 mmol/L 11/03/18 14:07 BUN 41 mg/dL (9-20) H 11/03/18 14:07 1.5 mg/dL (0.8-1.5) 11/03/18 14:07 Estimated GFR 55 ml/min 11/03/18 14:07 27 % 11/03/18 14:07 Glucose 67 mg/dL (75-100) L 11/03/18 14:07 POC Glucose 69 (70-105) L 11/03/18 17:34 Lactic Acid 1.40 mmol/L (0.7-2.0) 11/03/18 15:50 Calcium 9.5 mg/dL (8.4-10.2) 11/03/18 14:07 Magnesium 2.20 mg/dL (1.7-2.3) 11/03/18 14:20 0.60 mg/dL (0.1-1.2) 11/03/18 14:07 AST 37 units/L (5-40) 11/03/18 14:07 ALT 46 units/L (7-56) 11/03/18 14:07 368 units/L (35-129) H 11/03/18 14:07 100 units/L (55-170) 11/03/18 14:20 7.0 g/dL (6.3-8.2) 11/03/18 14:07 3.4 g/dL (3.9-5) L 11/03/18 14:07 0.9 % 11/03/18 14:07 Yellow (Yellow) 11/03/18 14:58 Clear (Clear) 11/03/18 14:58 5.0 (5.0-7.0) 11/03/18 14:58 Ur Specific [place] 1.015 (1.003-1.030) 11/03/18 14:58 >500 mg/dL (Negative) 11/03/18 14:58 50 mg/dL (Negative) 11/03/18 14:58 Neg mg/dL (Negative) 11/03/18 14:58 Sm (Negative) 11/03/18 14:58 Neg (Negative) 11/03/18 14:58 Neg (Negative) 11/03/18 14:58 < 2.0 mg/dL (<2.0) 11/03/18 14:58 Ur Leukocyte Esterase Neg (Negative) 11/03/18 14:58 3.0 /HPF (0.0-6.0) 11/03/18 14:58 < 1.0 /HPF (0.0-6.0) 11/03/18 14:58 U Epithel Cells (Auto) < 1.0 /HPF (0-13.0) 11/03/18 14:58 1+ /HPF (Negative) 11/03/18 14:58 Few /HPF 11/03/18 14:58 Salicylates < 0.3 mg/dL (2.8-20.0) L 11/03/18 14:20 Acetaminophen < 5.0 ug/mL (10.0-30.0) L 11/03/18 14:20 Short CBC 11/03/18 Range/Units 14:07 WBC 4.1 L (4.5-11.0) K/mm3 Hgb 12.9 (11.8-15.2) gm/dl Hct 39.6 (35.5-45.6) % Plt Count 122 L (140-440) K/mm3 BMP 11/03/18 14:07 Sodium 148 H Potassium 5.0 Chloride 112.5 H Carbon Dioxide 23 BUN 41 H Creatinine 1.5 Glucose 67 L Calcium 9.5 Cardiac Enzymes 11/03/18 Range/Units 14:20 Total Creatine Kinase 100 (55-170) units/L Liver Function 11/03/18 Range/Units 14:07 Total Bilirubin 0.60 (0.1-1.2) mg/dL AST 37 (5-40) units/L ALT 46 (7-56) units/L Alkaline Phosphatase 368 H (35-129) units/L Albumin 3.4 L (3.9-5) g/dL Urine 11/03/18 Range/Units 14:58 Urine Color Yellow (Yellow) Urine pH 5.0 (5.0-7.0) Ur Specific [place] 1.015 (1.003-1.030) Urine Protein >500 (Negative) mg/dL Urine Glucose (UA) 50 (Negative) mg/dL - Imaging and Cardiology EKG: report reviewed (sinus tachycardia heart rate of 10 5/m incomplete left bundle branch block) Chest x-ray: report reviewed Imaging and Cardiology: Chest x-ray IMPRESSION: 1. Left retrocardiac opacity represents platelike atelectasis with or without layering of a small pleural effusion. Appearance is stable since 10/27/2018; thus pneumonia is felt less likely. Assessment and Plan Advance Directives: Yes (full code) VTE prophylaxis?: Chemical Plan of care discussed with patient/family: Yes - Patient Problems (1) Acute encephalopathy Current Visit: Yes Status: Acute Plan to address problem: Secondary to persistent hypoglycemia IV D5W for now Patient also has hyponatremia for which the D5W may be appropriate (2) HIV (human immunodeficiency virus infection) Current Visit: Yes Status: Chronic Qualifiers: HIV symptom status: unspecified Qualified Code(s): B20 - Human immunodeficiency virus [HIV] disease Plan to address problem: Continue antiretrovirals (3) Hypoglycemia Current Visit: Yes Status: Acute Plan to address problem: D5W IV initiated No more oral hypoglycemics (4) Hypertension Current Visit: Yes Status: Chronic Qualifiers: Hypertension type: essential hypertension Qualified Code(s): I10 - Essential (primary) hypertension Plan to address problem: Continue antihypertensives (5) Insulin dependent diabetes mellitus Current Visit: Yes Status: Chronic Plan to address problem: We will hold his Levemir and metformin Add coverage at low-dose sliding scale (6) Hyperlipidemia Current Visit: Yes Status: Chronic Qualifiers: Hyperlipidemia type: mixed hyperlipidemia Qualified Code(s): E78.2 - Mixed hyperlipidemia Plan to address problem: Continue statins in the form of Crestor or a substitute (7) BPH (benign prostatic hyperplasia) Current Visit: Yes Status: Chronic Qualifiers: Lower urinary tract symptom presence: symptoms present Plan to address problem: continue Flomax (8) Malnutrition Current Visit: Yes Status: Chronic Qualifiers: Protein-calorie malnutrition severity: mild Plan to address problem: Dietary supplements added (9) Hypernatremia Current Visit: Yes Status: Acute Plan to address problem: D5W for now (10) DVT prophylaxis Current Visit: Yes Status: Acute Plan to address problem: Lovenox and GI prophylaxis initiated
[2018-11-03] MEDS ORDERED: TYLENOL PO PRN (20:06)
[2018-11-03] MEDS ORDERED: SODIUM CHLORIDE FLUSH SYRINGE 10 ML IV PRN (20:06)
[2018-11-03] MEDS ORDERED: REGLAN IV PRN (20:06)
[2018-11-03] MEDS ORDERED: NON-FORMULARY (Lisinopril 40 MG) PO SCH (20:15)
[2018-11-03] MEDS ORDERED: ROSUVASTATIN CALCIUM 10 MG PO SCH (20:15)
[2018-11-03] MEDS ORDERED: NON-FORMULARY (Tamsulosin Hcl 0.4 MG) PO SCH (22:00)
[2018-11-03] MEDS ORDERED: ISENTRESS 400 MG PO SCH (22:00)
[2018-11-03] MEDS ORDERED: NON-FORMULARY (Carvedilol 6.25 MG) PO SCH (22:00)
[2018-11-03] MEDS: D5W 1,000 ML IV SCH (22:05)
[2018-11-03] MEDS: ISENTRESS PO SCH (22:06)
[2018-11-03] MEDS: LOVENOX SUB-Q SCH (22:07)
[2018-11-03] MEDS: FLOMAX PO SCH (22:07)
[2018-11-03] MEDS: PEPCID IV SCH (22:08)
[2018-11-03] MEDS: COREG PO SCH (22:08)
[2018-11-03] MEDS: SODIUM CHLORIDE FLUSH SYRINGE 10 ML IV SCH (22:09)
[2018-11-03] MEDS: HumaLOG SUB-Q SCH (22:09)
[2018-11-03] MEDS: ZESTRIL PO SCH (22:09)
[2018-11-03] MEDS: NAMENDA PO SCH (22:50)
[2018-11-03] MEDS: ROCEPHIN/NS 2 GM/100 ML 2 GM/100 ML BAG IV SCH (22:50)
[2018-11-04] MEDS: DILAUDID IV PRN ×2 (01:09→22:54)
[2018-11-04 06:11] LABS: Basophils % (Auto) 0.3 % (0.0-1.8); Eosinophils # (Auto) 0.1 K/mm3 (0.0-0.4); Eosinophils % (Auto) 1.8 % (0.0-4.3); Hematocrit 33.4 % (35.5-45.6); Hemoglobin 11.2 gm/dl (11.8-15.2); Lymphocytes # (Auto) 0.7 K/mm3 (1.2-5.4); Lymphocytes % (Auto) 15.6 % (13.4-35.0); Mean Corpuscular HGB Conc 33 % (32-34); Mean Corpuscular Volume 114 fl (84-94); Monocytes # (Auto) 0.4 K/mm3 (0.0-0.8); Monocytes % (Auto) 8.7 % (0.0-7.3); Platelet Count 104 K/mm3 (140-440); Red Blood Count 2.93 M/mm3 (3.65-5.03); Red Cell Distribution Width 15.1 % (13.2-15.2)
[2018-11-04 06:32] LABS: Albumin 2.6 g/dL (3.9-5); Calcium 8.5 mg/dL (8.4-10.2)
[2018-11-04] MEDS: HumaLOG SUB-Q SCH ×4 (07:40→22:56)
[2018-11-04] MEDS ORDERED: NON-FORMULARY (Amlodipine Besylate 10 MG) PO SCH (10:00)
[2018-11-04] MEDS ORDERED: ZIDOVUDINE PO SCH (10:00)
[2018-11-04] MEDS ORDERED: ABACAVIR PO SCH (10:00)
[2018-11-04] MEDS ORDERED: LAMIVUDINE PO SCH (10:00)
[2018-11-04] MEDS: ROCEPHIN/NS 2 GM/100 ML 2 GM/100 ML BAG IV SCH (11:28)
[2018-11-04] MEDS: BABY ASPIRIN PO SCH (11:29)
[2018-11-04] MEDS: PEPCID IV SCH ×2 (11:29→22:53)
[2018-11-04] MEDS: NORVASC PO SCH (11:31)
[2018-11-04] MEDS: ZESTRIL PO SCH (11:31)
[2018-11-04] MEDS: NAMENDA PO SCH (11:32)
[2018-11-04] MEDS: COREG PO SCH ×2 (11:32→22:56)
[2018-11-04] MEDS: RETROVIR PO SCH (11:33)
[2018-11-04] MEDS: ISENTRESS PO SCH ×2 (11:34→22:52)
[2018-11-04] MEDS: EPIVIR PO SCH (11:36)
[2018-11-04] MEDS: ZIAGEN PO SCH (11:36)
[2018-11-04] MEDS: SODIUM CHLORIDE FLUSH SYRINGE 10 ML IV SCH ×2 (11:40→22:53)
--- NOTE | 2018-11-04 13:51 | Progress Note ---
Assessment and Plan Assessment and plan: Acute metabolic encephalopathy Neurochecks Hypoglycemia Glucose was 17 at home when checked now improved at 163 a1C 7.8 Hypernatremia started on iv fluids Dehydration iv fluids HIV infection Continue HAART Hypertension Monitor BP Diabetes mellitus type 2 fingerstick q ac and hs Full code status History Interval history: Altered mental status low blood glucose Hospitalist Physical - Physical exam Narrative exam: Gen: Not in acute distress, lying in bed, HEENT: Normocephalic, atraumatic Neck: supple, no JVD Heart: S1 and S2 reg, no murmurs, rubs or gallop Lungs: Bilateral rhonchi, wheeze Abd: soft, non tender, non distended, normal BS, Ext: No edema, no clubbing, no cyanosis Neuro: Awake, confused - Constitutional Vitals: Temp Pulse Resp BP Pulse Ox 97.5 F L 110 H 20 112/80 100 11/04/18 07:30 11/04/18 11:32 11/04/18 07:30 11/04/18 11:32 11/04/18 08:15 General appearance: Present: mild distress Results - Labs CBC & Chem 7: 11/04/18 05:21 11/04/18 05:21 Labs: Laboratory Last Values WBC 4.3 K/mm3 (4.5-11.0) L 11/04/18 05:21 RBC 2.93 M/mm3 (3.65-5.03) L 11/04/18 05:21 Hgb 11.2 gm/dl (11.8-15.2) L 11/04/18 05:21 Hct 33.4 % (35.5-45.6) L D 11/04/18 05:21 MCV 114 fl (84-94) H 11/04/18 05:21 MCH 38 pg (28-32) H 11/04/18 05:21 MCHC 33 % (32-34) 11/04/18 05:21 RDW 15.1 % (13.2-15.2) 11/04/18 05:21 Plt Count 104 K/mm3 (140-440) L 11/04/18 05:21 Lymph % (Auto) 15.6 % (13.4-35.0) 11/04/18 05:21 [place] % (Auto) 8.7 % (0.0-7.3) H 11/04/18 05:21 Eos % (Auto) 1.8 % (0.0-4.3) 11/04/18 05:21 Baso % (Auto) 0.3 % (0.0-1.8) 11/04/18 05:21 Lymph # 0.7 K/mm3 (1.2-5.4) L 11/04/18 05:21 [place] # 0.4 K/mm3 (0.0-0.8) 11/04/18 05:21 Eos # 0.1 K/mm3 (0.0-0.4) 11/04/18 05:21 Baso # 0.0 K/mm3 (0.0-0.1) 11/04/18 05:21 Seg Neutrophils % 73.6 % (40.0-70.0) H 11/04/18 05:21 Seg Neutrophils # 3.2 K/mm3 (1.8-7.7) 11/04/18 05:21 PT 15.3 Sec. (12.2-14.9) H 11/03/18 15:50 INR 1.24 (0.87-1.13) H 11/03/18 15:50 POC ABG pH 7.393 (7.35-7.45) 11/03/18 14:09 POC ABG pCO2 34.8 (35-45) L 11/03/18 14:09 POC ABG pO2 157 (80-105) H 11/03/18 14:09 POC ABG HCO3 21.2 (22-26 mml/L) 11/03/18 14:09 POC ABG Total CO2 22 (23-27mmol/L) 11/03/18 14:09 POC ABG O2 Sat 99 11/03/18 14:09 POC ABG Base Excess -4 ((-2) - (+3)mmol/L) 11/03/18 14:09 VBG pH 7.344 (7.320-7.420) 11/03/18 15:50 100 % 11/03/18 14:09 Sodium 145 mmol/L (137-145) 11/04/18 05:21 Potassium 4.7 mmol/L (3.6-5.0) 11/04/18 05:21 Chloride 112.6 mmol/L (98-107) H 11/04/18 05:21 Carbon Dioxide 24 mmol/L (22-30) 11/04/18 05:21 13 mmol/L 11/04/18 05:21 BUN 38 mg/dL (9-20) H 11/04/18 05:21 1.5 mg/dL (0.8-1.5) 11/04/18 05:21 Estimated GFR 55 ml/min 11/04/18 05:21 25 % 11/04/18 05:21 Glucose 51 mg/dL (75-100) L 11/04/18 05:21 POC Glucose 163 (70-105) H 11/04/18 11:34 7.8 % (4-6) H 11/03/18 14:07 Lactic Acid 1.40 mmol/L (0.7-2.0) 11/03/18 19:32 Calcium 8.5 mg/dL (8.4-10.2) 11/04/18 05:21 Magnesium 2.20 mg/dL (1.7-2.3) 11/03/18 14:20 0.40 mg/dL (0.1-1.2) 11/04/18 05:21 AST 27 units/L (5-40) 11/04/18 05:21 ALT 35 units/L (7-56) 11/04/18 05:21 304 units/L (35-129) H 11/04/18 05:21 100 units/L (55-170) 11/03/18 14:20 5.7 g/dL (6.3-8.2) L 11/04/18 05:21 2.6 g/dL (3.9-5) L 11/04/18 05:21 0.8 % 11/04/18 05:21 Yellow (Yellow) 11/03/18 14:58 Clear (Clear) 11/03/18 14:58 5.0 (5.0-7.0) 11/03/18 14:58 Ur Specific [place] 1.015 (1.003-1.030) 11/03/18 14:58 >500 mg/dL (Negative) 11/03/18 14:58 50 mg/dL (Negative) 11/03/18 14:58 Neg mg/dL (Negative) 11/03/18 14:58 Sm (Negative) 11/03/18 14:58 Neg (Negative) 11/03/18 14:58 Neg (Negative) 11/03/18 14:58 < 2.0 mg/dL (<2.0) 11/03/18 14:58 Ur Leukocyte Esterase Neg (Negative) 11/03/18 14:58 3.0 /HPF (0.0-6.0) 11/03/18 14:58 < 1.0 /HPF (0.0-6.0) 11/03/18 14:58 U Epithel Cells (Auto) < 1.0 /HPF (0-13.0) 11/03/18 14:58 1+ /HPF (Negative) 11/03/18 14:58 Few /HPF 11/03/18 14:58 Salicylates < 0.3 mg/dL (2.8-20.0) L 11/03/18 14:20 Acetaminophen < 5.0 ug/mL (10.0-30.0) L 11/03/18 14:20 Active Medications - Current Medications Current Medications: Generic Name Dose Route Start Last Admin Trade Name Freq PRN Reason Stop Dose Admin Abacavir Sulfate 300 mg 11/04/18 10:00 11/04/18 11:36 Ziagen PO 300 mg DAILY KEN Administration Acetaminophen 650 mg 11/03/18 20:06 Tylenol PO Q4H PRN Pain MILD(1-3)/Fever >100.5/SIMMONS Amlodipine Besylate 10 mg 11/04/18 10:00 11/04/18 11:31 Norvasc PO 10 mg DAILY KEN Administration Aspirin 81 mg 11/04/18 10:00 11/04/18 11:29 Baby Aspirin PO 81 mg QDAY KEN Administration Atorvastatin Calcium 20 mg 11/04/18 20:30 Lipitor PO QDAY KEN Carvedilol 6.25 mg 11/03/18 22:00 11/04/18 11:32 Coreg PO 6.25 mg BID KEN Administration Dextrose 50 ml 11/03/18 14:12 11/03/18 22:02 D50w (25gm) Syringe IV 50 ml PRN PRN Administration Hypoglycemia Enoxaparin Sodium 30 mg 11/03/18 22:00 11/03/18 22:07 Lovenox SUB-Q 30 mg QDAY@2200 KEN Administration Famotidine 20 mg 11/03/18 22:00 11/04/18 11:29 Pepcid IV 20 mg BID KEN Administration Hydromorphone HCl 0.5 mg 11/03/18 20:06 11/04/18 01:09 Dilaudid IV 0.5 mg Q3H PRN Administration Pain , Severe (7-10) Dextrose/Sodium Chloride 1,000 mls @ 100 mls/hr 11/03/18 15:00 11/03/18 15:35 D5/0.45ns IV 100 mls/hr DIRECT KEN Administration Ceftriaxone Sodium 2 gm in 100 mls @ 200 mls/hr 11/03/18 21:00 11/04/18 11:28 Rocephin/Ns 2 Gm/100 Ml IV 200 mls/hr Q24HR KEN Administration Protocol Dextrose 1,000 mls @ 100 mls/hr 11/03/18 21:00 11/03/18 22:05 D5w IV 100 mls/hr DIRECT KEN Administration Insulin Human Lispro 0 unit 11/03/18 22:00 11/04/18 13:13 Humalog SUB-Q 1 unit ACHS KEN Administration Protocol Lamivudine 150 mg 11/04/18 10:00 11/04/18 11:36 Epivir PO 150 mg DAILY KEN Administration Lisinopril 40 mg 11/03/18 20:30 11/04/18 11:31 Zestril PO 40 mg QDAY KEN Administration Memantine 5 mg 11/03/18 21:00 11/04/18 11:32 Namenda PO 5 mg QDAY KEN Administration Metoclopramide HCl 10 mg 11/03/18 20:06 Reglan IV Q6H PRN Nausea And Vomiting Ondansetron HCl 4 mg 11/03/18 20:06 Zofran IV Q8H PRN Nausea And Vomiting Raltegravir 400 mg 11/03/18 22:00 11/04/18 11:34 Isentress PO 400 mg BID KEN Administration Sodium Chloride 10 ml 11/03/18 22:00 11/04/18 11:40 Sodium Chloride Flush Syringe 10 Ml IV 10 ml BID KEN Administration Sodium Chloride 10 ml 11/03/18 20:06 Sodium Chloride Flush Syringe 10 Ml IV PRN PRN LINE FLUSH Tamsulosin HCl 0.4 mg 11/03/18 22:00 11/03/18 22:07 Flomax PO 0.4 mg QHS KEN Administration Zidovudine 300 mg 11/04/18 10:00 11/04/18 11:33 Retrovir PO 300 mg DAILY KEN Administration
[2018-11-04] MEDS: LOVENOX SUB-Q SCH (22:52)
[2018-11-04] MEDS: FLOMAX PO SCH (22:52)
[2018-11-05] MEDS: D5W 1,000 ML IV SCH (03:49)
[2018-11-05 05:15] LABS: Hematocrit 34.1 % (35.5-45.6); Hemoglobin 11.2 gm/dl (11.8-15.2); Mean Corpuscular HGB Conc 33 % (32-34); Mean Corpuscular Volume 116 fl (84-94); Platelet Count 103 K/mm3 (140-440); Red Blood Count 2.95 M/mm3 (3.65-5.03); Red Cell Distribution Width 15.5 % (13.2-15.2)
[2018-11-05 05:37] LABS: Calcium 8.3 mg/dL (8.4-10.2)
[2018-11-05] MEDS: COREG PO SCH ×2 (09:23→22:00)
[2018-11-05] MEDS: HumaLOG SUB-Q SCH ×4 (09:23→22:04)
[2018-11-05] MEDS: BABY ASPIRIN PO SCH (09:23)
[2018-11-05] MEDS: ZIAGEN PO SCH (09:25)
[2018-11-05] MEDS: RETROVIR PO SCH (09:25)
[2018-11-05] MEDS: EPIVIR PO SCH (09:25)
[2018-11-05] MEDS: ROCEPHIN/NS 2 GM/100 ML 2 GM/100 ML BAG IV SCH (09:25)
[2018-11-05] MEDS: NAMENDA PO SCH (09:26)
[2018-11-05] MEDS: ZESTRIL PO SCH (09:26)
[2018-11-05] MEDS: ISENTRESS PO SCH ×2 (09:26→22:02)
[2018-11-05] MEDS: PEPCID IV SCH (09:27)
[2018-11-05] MEDS: SODIUM CHLORIDE FLUSH SYRINGE 10 ML IV SCH ×2 (09:31→22:04)
[2018-11-05] MEDS: NORVASC PO SCH (09:41)
[2018-11-05] MEDS ORDERED: REGLAN IV PRN (11:00)
--- NOTE | 2018-11-05 11:57 | Progress Note ---
Assessment and Plan Assessment and plan: Acute metabolic encephalopathy Neurochecks q 6 hrs Improving Hypoglycemia Glucose was 17 at home when checked now improved a1C 7.8 Hypernatremia started on iv fluids [place] due to vasomotor nephropathy Start NS at 75 ml/hr Dehydration iv fluids HIV infection Continue HAART Hypertension Monitor BP Diabetes mellitus type 2 fingerstick q ac and hs Son says he is unable top take care of patient. case management aware. For SNF placement Full code status History Interval history: Altered mental status low blood glucose Hospitalist Physical - Physical exam Narrative exam: Gen: Not in acute distress, lying in bed, HEENT: Normocephalic, atraumatic Neck: supple, no JVD Heart: S1 and S2 reg, no murmurs, rubs or gallop Lungs: Clear to auscultation bilaterally, no wheeze Abd: soft, non tender, non distended, normal BS, Ext: No edema, no clubbing, no cyanosis Neuro: Awake, confused - Constitutional Vitals: Temp Pulse Resp BP Pulse Ox 98.4 F 99 H 20 114/79 99 11/05/18 07:21 11/05/18 10:00 11/05/18 10:00 11/05/18 07:21 11/05/18 10:00 Results - Labs CBC & Chem 7: 11/05/18 04:37 11/05/18 04:37 Labs: Laboratory Last Values WBC 3.9 K/mm3 (4.5-11.0) L 11/05/18 04:37 RBC 2.95 M/mm3 (3.65-5.03) L 11/05/18 04:37 Hgb 11.2 gm/dl (11.8-15.2) L 11/05/18 04:37 Hct 34.1 % (35.5-45.6) L 11/05/18 04:37 MCV 116 fl (84-94) H 11/05/18 04:37 MCH 38 pg (28-32) H 11/05/18 04:37 MCHC 33 % (32-34) 11/05/18 04:37 RDW 15.5 % (13.2-15.2) H 11/05/18 04:37 Plt Count 103 K/mm3 (140-440) L 11/05/18 04:37 Lymph % (Auto) 15.6 % (13.4-35.0) 11/04/18 05:21 [place] % (Auto) 8.7 % (0.0-7.3) H 11/04/18 05:21 Eos % (Auto) 1.8 % (0.0-4.3) 11/04/18 05:21 Baso % (Auto) 0.3 % (0.0-1.8) 11/04/18 05:21 Lymph # 0.7 K/mm3 (1.2-5.4) L 11/04/18 05:21 [place] # 0.4 K/mm3 (0.0-0.8) 11/04/18 05:21 Eos # 0.1 K/mm3 (0.0-0.4) 11/04/18 05:21 Baso # 0.0 K/mm3 (0.0-0.1) 11/04/18 05:21 Seg Neutrophils % 73.6 % (40.0-70.0) H 11/04/18 05:21 Seg Neutrophils # 3.2 K/mm3 (1.8-7.7) 11/04/18 05:21 PT 15.3 Sec. (12.2-14.9) H 11/03/18 15:50 INR 1.24 (0.87-1.13) H 11/03/18 15:50 POC ABG pH 7.393 (7.35-7.45) 11/03/18 14:09 POC ABG pCO2 34.8 (35-45) L 11/03/18 14:09 POC ABG pO2 157 (80-105) H 11/03/18 14:09 POC ABG HCO3 21.2 (22-26 mml/L) 11/03/18 14:09 POC ABG Total CO2 22 (23-27mmol/L) 11/03/18 14:09 POC ABG O2 Sat 99 11/03/18 14:09 POC ABG Base Excess -4 ((-2) - (+3)mmol/L) 11/03/18 14:09 VBG pH 7.344 (7.320-7.420) 11/03/18 15:50 100 % 11/03/18 14:09 Sodium 141 mmol/L (137-145) 11/05/18 04:37 Potassium 4.6 mmol/L (3.6-5.0) 11/05/18 04:37 Chloride 109.7 mmol/L (98-107) H 11/05/18 04:37 Carbon Dioxide 20 mmol/L (22-30) L 11/05/18 04:37 16 mmol/L 11/05/18 04:37 BUN 37 mg/dL (9-20) H 11/05/18 04:37 1.7 mg/dL (0.8-1.5) H 11/05/18 04:37 Estimated GFR 48 ml/min 11/05/18 04:37 22 % 11/05/18 04:37 Glucose 165 mg/dL (75-100) H 11/05/18 04:37 POC Glucose 219 (70-105) H 11/05/18 11:18 7.8 % (4-6) H 11/03/18 14:07 Lactic Acid 1.40 mmol/L (0.7-2.0) 11/03/18 19:32 Calcium 8.3 mg/dL (8.4-10.2) L 11/05/18 04:37 Magnesium 2.20 mg/dL (1.7-2.3) 11/03/18 14:20 0.40 mg/dL (0.1-1.2) 11/04/18 05:21 AST 27 units/L (5-40) 11/04/18 05:21 ALT 35 units/L (7-56) 11/04/18 05:21 304 units/L (35-129) H 11/04/18 05:21 100 units/L (55-170) 11/03/18 14:20 5.7 g/dL (6.3-8.2) L 11/04/18 05:21 2.6 g/dL (3.9-5) L 11/04/18 05:21 0.8 % 11/04/18 05:21 Yellow (Yellow) 11/03/18 14:58 Clear (Clear) 11/03/18 14:58 5.0 (5.0-7.0) 11/03/18 14:58 Ur Specific [place] 1.015 (1.003-1.030) 11/03/18 14:58 >500 mg/dL (Negative) 11/03/18 14:58 50 mg/dL (Negative) 11/03/18 14:58 Neg mg/dL (Negative) 11/03/18 14:58 Sm (Negative) 11/03/18 14:58 Neg (Negative) 11/03/18 14:58 Neg (Negative) 11/03/18 14:58 < 2.0 mg/dL (<2.0) 11/03/18 14:58 Ur Leukocyte Esterase Neg (Negative) 11/03/18 14:58 3.0 /HPF (0.0-6.0) 11/03/18 14:58 < 1.0 /HPF (0.0-6.0) 11/03/18 14:58 U Epithel Cells (Auto) < 1.0 /HPF (0-13.0) 11/03/18 14:58 1+ /HPF (Negative) 11/03/18 14:58 Few /HPF 11/03/18 14:58 Salicylates < 0.3 mg/dL (2.8-20.0) L 11/03/18 14:20 Acetaminophen < 5.0 ug/mL (10.0-30.0) L 11/03/18 14:20 Active Medications - Current Medications Current Medications: Generic Name Dose Route Start Last Admin Trade Name Freq PRN Reason Stop Dose Admin Abacavir Sulfate 300 mg 11/04/18 10:00 11/05/18 09:25 Ziagen PO 300 mg DAILY KEN Administration Acetaminophen 650 mg 11/03/18 20:06 Tylenol PO Q4H PRN Pain MILD(1-3)/Fever >100.5/[place]MONS Amlodipine Besylate 10 mg 11/04/18 10:00 11/05/18 09:41 Norvasc PO 10 mg DAILY KEN Administration Aspirin 81 mg 11/04/18 10:00 11/05/18 09:23 Baby Aspirin PO 81 mg QDAY KEN Administration Atorvastatin Calcium 20 mg 11/04/18 20:30 11/05/18 09:26 Lipitor PO 20 mg QDAY KEN Administration Carvedilol 6.25 mg 11/03/18 22:00 11/05/18 09:23 Coreg PO 6.25 mg BID KEN Administration Dextrose 50 ml 11/03/18 14:12 11/03/18 22:02 D50w (25gm) Syringe IV 50 ml PRN PRN Administration Hypoglycemia Enoxaparin Sodium 40 mg 11/06/18 10:00 Lovenox SUB-Q QDAY@1000 KEN Famotidine 10 mg 11/05/18 22:00 Pepcid PO BID KEN Hydromorphone HCl 0.5 mg 11/03/18 20:06 11/04/18 22:54 Dilaudid IV 0.5 mg Q3H PRN Administration Pain , Severe (7-10) Ceftriaxone Sodium 2 gm in 100 mls @ 200 mls/hr 11/03/18 21:00 11/05/18 09:25 Rocephin/Ns 2 Gm/100 Ml IV 200 mls/hr Q24HR EKN Administration Protocol Dextrose 1,000 mls @ 100 mls/hr 11/03/18 21:00 11/05/18 03:49 D5w IV 100 mls/hr DIRECT KEN Administration Insulin Human Lispro 0 unit 11/03/18 22:00 11/05/18 11:44 Humalog SUB-Q 2 unit ACHS KEN Administration Protocol Lamivudine 150 mg 11/04/18 10:00 11/05/18 09:25 Epivir PO 150 mg DAILY KEN Administration Lisinopril 40 mg 11/03/18 20:30 11/05/18 09:26 Zestril PO 40 mg QDAY KEN Administration Memantine 5 mg 11/03/18 21:00 11/05/18 09:26 Namenda PO 5 mg QDAY KEN Administration Metoclopramide HCl 5 mg 11/05/18 11:00 Reglan IV Q6H PRN Nausea And Vomiting Ondansetron HCl 4 mg 11/03/18 20:06 Zofran IV Q8H PRN Nausea And Vomiting Raltegravir 400 mg 11/03/18 22:00 11/05/18 09:26 Isentress PO 400 mg BID KEN Administration Sodium Chloride 10 ml 11/03/18 22:00 11/05/18 09:31 Sodium Chloride Flush Syringe 10 Ml IV 10 ml BID KEN Administration Sodium Chloride 10 ml 11/03/18 20:06 Sodium Chloride Flush Syringe 10 Ml IV PRN PRN LINE FLUSH Tamsulosin HCl 0.4 mg 11/03/18 22:00 11/04/18 22:52 Flomax PO 0.4 mg QHS KEN Administration Zidovudine 300 mg 11/04/18 10:00 11/05/18 09:25 Retrovir PO 300 mg DAILY KEN Administration
[2018-11-05] MEDS: NACL 0.9% 1000 ML 1,000 ML IV SCH (12:10)
--- NOTE | 2018-11-05 13:42 | Consultation ---
History of Present Illness - Reason for Consult Consult date: 11/05/18 chronic renal failure - History of Present Illness The patient is a 73 YO Male with history significant for HIV, COPD, DM, CVA, HTN, HLD, Dementia and CKD who was brought into ED with 2 days history of confusion and lethargy. Pt is confused to provide any history and there was no family member at the bedside. Patient's blood glucose level was 17 per EMS. He was given D50W with improvement in the blood glucose to around 120s. Patient was recently discharged after being treated for acute metabolic encephalopathy, suspected hypoxemic respiratory failure, acute AK and vasomotor nephropathy. His creatinine is 1.7 today. Nephrology was consulted for further evaluation. Past History Past Medical History: diabetes, hypertension, hyperlipidemia, renal failure, stroke, other (HIV) Medications and Allergies Allergies Allergy/AdvReac Type Severity Reaction Status Date / Time No Known Allergies Allergy Unverified 03/29/16 00:43 Home Medications Medication Instructions Recorded Confirmed Last Taken Type Aspirin [Aspirin BABY CHEW TAB] 81 mg PO QDAY #30 tab.chew 11/15/17 11/03/18 Unknown Rx Abacavir/Lamivudine/Zidovudine 1 tab PO DAILY 05/21/18 11/03/18 Unknown History Amlodipine Besylate 10 mg PO QDAY 05/21/18 11/03/18 Unknown History Carvedilol 6.25 mg PO BID 05/21/18 11/03/18 Unknown History Isentress 400 mg PO Q12HR 05/21/18 11/03/18 Unknown History Levemir Flextouch 60 unit SUB-Q QHS 05/21/18 11/03/18 Unknown History Lisinopril 40 mg PO DAILY 05/21/18 11/03/18 Unknown History Metformin HCl 500 mg PO BID 05/21/18 11/03/18 Unknown History Rosuvastatin Calcium 10 mg PO DAILY 05/21/18 11/03/18 Unknown History Tamsulosin HCl 0.4 mg PO HS 05/21/18 11/03/18 Unknown History Memantine [Namenda] 5 mg PO QDAY #30 tablet 11/01/18 11/03/18 Unknown Rx Active Meds: Active Medications Abacavir Sulfate (Ziagen) 300 mg PO DAILY KEN Last Admin: 11/05/18 09:25 Dose: 300 mg Documented by: Acetaminophen (Tylenol) 650 mg PO Q4H PRN PRN Reason: Pain MILD(1-3)/Fever >100.5/[place] Amlodipine Besylate (Norvasc) 10 mg PO DAILY [facility] Last Admin: 11/05/18 09:41 Dose: 10 mg Documented by: Aspirin (Baby Aspirin) 81 mg PO QDAY [facility] Last Admin: 11/05/18 09:23 Dose: 81 mg Documented by: Atorvastatin Calcium (Lipitor) 20 mg PO QDAY [facility] Last Admin: 11/05/18 09:26 Dose: 20 mg Documented by: Carvedilol (Coreg) 6.25 mg PO BID [facility] Last Admin: 11/05/18 09:23 Dose: 6.25 mg Documented by: Dextrose (D50w (25gm) Syringe) 50 ml IV PRN PRN PRN Reason: Hypoglycemia Last Admin: 11/03/18 22:02 Dose: 50 ml Documented by: Enoxaparin Sodium (Lovenox) 40 mg SUB-Q QDAY@1000 [facility] Famotidine (Pepcid) 10 mg PO BID [facility] Hydromorphone HCl (Dilaudid) 0.5 mg IV Q3H PRN PRN Reason: Pain , Severe (7-10) Last Admin: 11/04/18 22:54 Dose: 0.5 mg Documented by: Ceftriaxone Sodium (Rocephin/Ns 2 Gm/100 Ml) 2 gm in 100 mls @ 200 mls/hr IV Q24HR [facility]; Protocol Last Admin: 11/05/18 09:25 Dose: 200 mls/hr Documented by: Dextrose (D5w) 1,000 mls @ 100 mls/hr IV DIRECT [facility] Last Admin: 11/05/18 03:49 Dose: 100 mls/hr Documented by: Sodium Chloride (Nacl 0.9% 1000 Ml) 1,000 mls @ 75 mls/hr IV DIRECT [facility] Last Admin: 11/05/18 12:10 Dose: 75 mls/hr Documented by: Insulin Human Lispro (Humalog) 0 unit SUB-Q ACHS [facility]; Protocol Last Admin: 11/05/18 11:44 Dose: 2 unit Documented by: Lamivudine (Epivir) 150 mg PO DAILY [facility] Last Admin: 11/05/18 09:25 Dose: 150 mg Documented by: Lisinopril (Zestril) 40 mg PO QDAY [facility] Last Admin: 11/05/18 09:26 Dose: 40 mg Documented by: Memantine (Namenda) 5 mg PO QDAY [facility] Last Admin: 11/05/18 09:26 Dose: 5 mg Documented by: Metoclopramide HCl (Reglan) 5 mg IV Q6H PRN PRN Reason: Nausea And Vomiting Ondansetron HCl (Zofran) 4 mg IV Q8H PRN PRN Reason: Nausea And Vomiting Raltegravir (Isentress) 400 mg PO BID [facility] Last Admin: 11/05/18 09:26 Dose: 400 mg Documented by: Sodium Chloride (Sodium Chloride Flush Syringe 10 Ml) 10 ml IV BID [facility] Last Admin: 11/05/18 09:31 Dose: 10 ml Documented by: Sodium Chloride (Sodium Chloride Flush Syringe 10 Ml) 10 ml IV PRN PRN PRN Reason: LINE FLUSH Tamsulosin HCl (Flomax) 0.4 mg PO QHS [facility] Last Admin: 11/04/18 22:52 Dose: 0.4 mg Documented by: Zidovudine (Retrovir) 300 mg PO DAILY [facility] Last Admin: 11/05/18 09:25 Dose: 300 mg Documented by: Review of Systems ROS unobtainable: due to mental status Exam - Vital Signs Vital signs: Vital Signs BP 140/96 11/03/18 13:50 - General Appearance General appearance: well-developed, appears stated age, other (no distress) EENT: ATNC, PERRL Neck: Present: neck supple, trachea midline Respiratory: Clear to Ascultation Heart: regular, S1S2, no murmurs Gastrointestinal: Present: normoactive bowel sounds. Absent: tenderness, distended Integumentary: no rash, warm and dry Neurologic: no focal deficit, confused, disoriented Musculoskeletal: Present: other (no edema) Results - Lab Results 11/05/18 04:37 11/05/18 04:37 Most recent lab results Calcium 8.3 mg/dL (8.4-10.2) L 11/05/18 04:37 Magnesium 2.20 mg/dL (1.7-2.3) 11/03/18 14:20 Assessment and Plan 1. Chronci kidney disease stage 3: Renal function is overall stable with some fluctuation. Monitor renal function. Avoid nephrotoxic agents. Meds dosage based on GFR. 2. FEN: Volume depletion, IV fluids. Metabolic acidosis, monitor. Monitor lytes. 3. Hypoglycemia; Glucose was 17. Now improved. Monitor. 4. Acute metabolic encephalopathy: Neurochecks. 5. Severe dilated cardiomyopathy and chronic LV systolic dysfunction: Compensated. 6. HIV. 7. DM type 2. 8. HTN: Hold Lisinopril for now. Monitor BP.
[2018-11-05] MEDS: PEPCID PO SCH (22:03)
[2018-11-05] MEDS: FLOMAX PO SCH (22:03)
[2018-11-05] MEDS: ZOFRAN IV PRN (22:03)
[2018-11-06] MEDS: NACL 0.9% 1000 ML 1,000 ML IV SCH (05:14)
[2018-11-06 06:48] LABS: Calcium 8.4 mg/dL (8.4-10.2)
[2018-11-06] MEDS: HumaLOG SUB-Q SCH ×4 (07:51→21:52)
[2018-11-06] MEDS ORDERED: KIONEX PO ONE (10:00)
[2018-11-06] MEDS: RETROVIR PO SCH (10:04)
[2018-11-06] MEDS: NAMENDA PO SCH (10:04)
[2018-11-06] MEDS: ISENTRESS PO SCH ×2 (10:05→21:45)
[2018-11-06] MEDS: ZIAGEN PO SCH (10:05)
[2018-11-06] MEDS: ROCEPHIN/NS 2 GM/100 ML 2 GM/100 ML BAG IV SCH (10:06)
[2018-11-06] MEDS: LOVENOX SUB-Q SCH (10:08)
[2018-11-06] MEDS: PEPCID PO SCH ×2 (10:10→21:44)
[2018-11-06] MEDS: BABY ASPIRIN PO SCH (10:10)
[2018-11-06] MEDS: EPIVIR PO SCH (10:10)
[2018-11-06] MEDS: NORVASC PO SCH (11:06)
[2018-11-06] MEDS: COREG PO SCH ×2 (11:06→21:44)
[2018-11-06] MEDS: SODIUM CHLORIDE FLUSH SYRINGE 10 ML IV SCH ×2 (11:07→21:45)
[2018-11-06 11:56] LABS: Hematocrit 34.1 % (35.5-45.6); Mean Corpuscular HGB Conc 32 % (32-34); Mean Corpuscular Volume 117 fl (84-94); Platelet Count 103 K/mm3 (140-440); Red Blood Count 2.92 M/mm3 (3.65-5.03); Red Cell Distribution Width 15.5 % (13.2-15.2)
[2018-11-06] MEDS ORDERED: NACL 0.9% 500 ML 500 ML IV ONE (13:00)
--- NOTE | 2018-11-06 14:01 | Progress Note ---
Assessment and Plan 1. Acute kidney injury: Vasomotor CONNIE superimposed on CKD stage 3. Renal function continue to decline likely from hypotension. Continue IV fluids. Monitor renal function. Renal prognosis is gaurded. Avoid nephrotoxic agents. Meds dosage based on GFR. 2. FEN: Volume depletion, IV fluids. Metabolic acidosis, IV bicarbonate. Hyperkalemia, kayexalate ordered. Monitor lytes. 3. Hypoglycemia: Glucose was 17. Now improved. Monitor. 4. Acute metabolic encephalopathy: Neurochecks. 5. Severe dilated cardiomyopathy and chronic LV systolic dysfunction: Compensated. 6. HIV. 7. DM type 2. 8. HTN: Monitor BP. Subjective Date of service: 11/06/18 Interval history: Patient was seen and examined at the bedside. Objective - Vital Signs Vital signs: Vital Signs - 12hr 11/06/18 11/06/18 11/06/18 07:41 10:00 11:05 Temperature 97.8 F Pulse Rate 66 Pulse Rate [ 95 H Apical] Respiratory 18 18 Rate Blood Pressure 102/68 99/66 O2 Sat by Pulse 94 94 Oximetry 11/06/18 11/06/18 11/06/18 11:06 13:09 13:11 Temperature 122.0 F H 97.8 F Pulse Rate 95 H 92 H Pulse Rate [ Apical] Respiratory 20 Rate Blood Pressure 99/66 105/75 O2 Sat by Pulse 98 Oximetry - General Appearance General appearance: well-developed, appears stated age, other (no distress) EENT: ATNC, PERRL Neck: supple Respiratory: Present: Clear to Ascultation Cardiology: regular, S1S2, no murmurs Gastrointestinal: normoactive bowel sounds, no tenderness, no distended Integumentary: no rash, warm and dry Neurologic: other (sleeping, opens eyes) Musculoskeletal: other (no edema) - Lab 11/06/18 11:17 11/06/18 05:46 Most recent lab results Calcium 8.4 mg/dL (8.4-10.2) 11/06/18 05:46 Magnesium 2.20 mg/dL (1.7-2.3) 11/03/18 14:20 Medications & Allergies - Medications Allergies/Adverse Reactions: Allergies No Known Allergies Allergy (Unverified 03/29/16 00:43) Home Medications: Home Medications Medication Instructions Recorded Confirmed Last Taken Type Aspirin [Aspirin BABY CHEW TAB] 81 mg PO QDAY #30 tab.chew 11/15/17 11/03/18 Unknown Rx Abacavir/Lamivudine/Zidovudine 1 tab PO DAILY 05/21/18 11/03/18 Unknown History Amlodipine Besylate 10 mg PO QDAY 05/21/18 11/03/18 Unknown History Carvedilol 6.25 mg PO BID 05/21/18 11/03/18 Unknown History Isentress 400 mg PO Q12HR 05/21/18 11/03/18 Unknown History Levemir Flextouch 60 unit SUB-Q QHS 05/21/18 11/03/18 Unknown History Lisinopril 40 mg PO DAILY 05/21/18 11/03/18 Unknown History Metformin HCl 500 mg PO BID 05/21/18 11/03/18 Unknown History Rosuvastatin Calcium 10 mg PO DAILY 05/21/18 11/03/18 Unknown History Tamsulosin HCl 0.4 mg PO HS 05/21/18 11/03/18 Unknown History Memantine [Namenda] 5 mg PO QDAY #30 tablet 11/01/18 11/03/18 Unknown Rx Active Medications: Generic Name Dose Route Start Last Admin Trade Name Freq PRN Reason Stop Dose Admin Abacavir Sulfate 300 mg 11/04/18 10:00 11/06/18 10:05 Ziagen PO 300 mg DAILY KEN Administration Acetaminophen 650 mg 11/03/18 20:06 Tylenol PO Q4H PRN Pain MILD(1-3)/Fever >100.5/SIMMONS Amlodipine Besylate 10 mg 11/04/18 10:00 11/06/18 11:06 Norvasc PO 10 mg DAILY KEN Administration Aspirin 81 mg 11/04/18 10:00 11/06/18 10:10 Baby Aspirin PO 81 mg QDAY KEN Administration Atorvastatin Calcium 20 mg 11/04/18 20:30 11/06/18 10:10 Lipitor PO 20 mg QDAY KEN Administration Carvedilol 6.25 mg 11/03/18 22:00 11/06/18 11:06 Coreg PO Not Given BID KEN Dextrose 50 ml 11/03/18 14:12 11/03/18 22:02 D50w (25gm) Syringe IV 50 ml PRN PRN Administration Hypoglycemia Enoxaparin Sodium 40 mg 11/06/18 10:00 11/06/18 10:08 Lovenox SUB-Q 40 mg QDAY@1000 KEN Administration Famotidine 10 mg 11/05/18 22:00 11/06/18 10:10 Pepcid PO 10 mg BID KEN Administration Hydromorphone HCl 0.5 mg 11/03/18 20:06 11/04/18 22:54 Dilaudid IV 0.5 mg Q3H PRN Administration Pain , Severe (7-10) Ceftriaxone Sodium 2 gm in 100 mls @ 200 mls/hr 11/03/18 21:00 11/06/18 10:06 Rocephin/Ns 2 Gm/100 Ml IV 200 mls/hr Q24HR KEN Administration Protocol Dextrose 1,000 mls @ 100 mls/hr 11/03/18 21:00 11/05/18 03:49 D5w IV 100 mls/hr DIRECT KEN Administration Sodium Chloride 1,000 mls @ 75 mls/hr 11/05/18 12:00 11/06/18 05:14 Nacl 0.9% 1000 Ml IV 75 mls/hr DIRECT KEN Administration Insulin Human Lispro 0 unit 11/03/18 22:00 11/06/18 12:11 Humalog SUB-Q 1 unit ACHS KEN Administration Protocol Lamivudine 150 mg 11/04/18 10:00 11/06/18 10:10 Epivir PO 150 mg DAILY KEN Administration Memantine 5 mg 11/03/18 21:00 11/06/18 10:04 Namenda PO 5 mg QDAY KEN Administration Metoclopramide HCl 5 mg 11/05/18 11:00 Reglan IV Q6H PRN Nausea And Vomiting Ondansetron HCl 4 mg 11/03/18 20:06 11/05/18 22:03 Zofran IV 4 mg Q8H PRN Administration Nausea And Vomiting Raltegravir 400 mg 11/03/18 22:00 11/06/18 10:05 Isentress PO 400 mg BID KEN Administration Sodium Chloride 10 ml 11/03/18 22:00 11/06/18 11:07 Sodium Chloride Flush Syringe 10 Ml IV 10 ml BID KEN Administration Sodium Chloride 10 ml 11/03/18 20:06 Sodium Chloride Flush Syringe 10 Ml IV PRN PRN LINE FLUSH Tamsulosin HCl 0.4 mg 11/03/18 22:00 11/05/18 22:03 Flomax PO 0.4 mg QHS KEN Administration Zidovudine 300 mg 11/04/18 10:00 11/06/18 10:04 Retrovir PO 300 mg DAILY KEN Administration
--- NOTE | 2018-11-06 14:58 | Progress Note ---
Assessment and Plan Assessment and plan: Patient is a 73-year-old -Citizen Of [place] male has been lethargic and confused for the last 2 days. Patient has history of HIV, type 2 diabetes, CHF, cerebrovascular accident, dementia and traumatic subarachnoid hemorrhage. Family reports that patient has been lethargic and having shallow breathing for the last 36-48 hours. No fever or chills. Patient's blood glucose level was very low as per the EMS. Around 17. Was given [id number] which the patient's blood glucose came up to around 120s. And then dropped again. Patient was recently discharged after being treated for acute metabolic encepha lopathy, suspected hypoxemic respiratory failure, acute [place] and vasomotor nephropathy. Patient takes antiretrovirals for HIV. Head CT scan reports ischemia in the right temporo-occipital region. Finding are new when compared to prior study done May 2018. * From prior admission. MR brain without IMPRESSION: 1. No acute infarct or acute intracranial abnormality. 2. Chronic infarct in the right parietal lobe and the right MCA [employer] [place] territory. Chronic lacunar infarct in the right paracentral [place]. 3. Moderate chronic deep cerebral white matter microvascular angiopathic change. Acute Metabolic Encephalopathy, poa, CT Head shows small vessel disease likely similar to prior. No clear evidence of new insult. Will obtain neurology eval, considering reoccurance and not clear if hypoglycemia is inciting or resultant, will obtain ID consult to ensure no central infectious disease. Continue aspirin and statin Type 2 DM uncontrolled hyperglycemia: treat with SSI, ADA, Hypoglycemia on Admission with blood glucose of 17. Per son patient often combative about diet and meds at home Acute hypoxic respiratory failure, poa: continue to wean O2, suspect component of MIRANDA HTN: Stable Acute on chronic systolic heart failure (congestive heart failure) 15-20%: and son states he will Follow up with his doctors at [facility], Cardiology is following, input noted, NSTEMI (non-ST elevated myocardial infarction) type 2, Likely from acute renal failure, Cardiology consulted in ED, medical management HIV (human immunodeficiency virus infection): continue antiretroviral therapy, supportive care Acute renal insufficiency, ATN + vasomotor nephropathy, poa: stable from prior admission, underlying CKD III monitor uop q shift, nephrology consulted in ED, urine electrolytes, strict I/O, monitor uop q shift, monitor fluid balance, monitor serum creatinine, Hyperkalemia: willalate. Moderate malnutrition, poa: consult Portfolio Consultant Hypernatremia: Likely from dehydration, increased by mouth free water intake DVT prophylaxis: SCD to BLE while in bed, on sq lovenox Disposition: continue inpatient care, During last admission family declined SNF Now wants patient placed. Patient per last discharge has SOME ongoing work up for Dementia as doctors at [facility] told her he had dementia, they ran some test and patient was to return on Monday, November 05. Discussed with son, nursing staff and also ID. Son also concerned about Hypoxia. Will get a room air ABG. History Interval history: Patient seen and examined, still confused, per family no fever. but has gradually declined since multiple falls in the last few months. Has been taking wrong dose medications in the past which led to HNHS in the past. Hospitalist Physical - Physical exam Narrative exam: Gen: Not in acute distress, lying in bed, intermittently tries to conversate but non coherent HEENT: Normocephalic, atraumatic Neck: supple, no JVD Heart: S1 and S2 reg, no murmurs, rubs or gallop Lungs: Clear to auscultation bilaterally, no wheeze Abd: soft, non tender, non distended, normal BS, Ext: No edema, no clubbing, no cyanosis Neuro: Awake, confused - Constitutional Vitals: Temp Pulse Resp BP Pulse Ox 97.8 F 92 H 20 105/75 98 11/06/18 13:11 11/06/18 13:09 11/06/18 13:09 11/06/18 13:09 11/06/18 13:09 General appearance: Present: mild distress Results - Labs CBC & Chem 7: 11/06/18 11:17 11/06/18 05:46 Labs: Laboratory Last Values WBC 4.1 K/mm3 (4.5-11.0) L 11/06/18 11:17 RBC 2.92 M/mm3 (3.65-5.03) L 11/06/18 11:17 Hgb 11.0 gm/dl (11.8-15.2) L 11/06/18 11:17 Hct 34.1 % (35.5-45.6) L 11/06/18 11:17 MCV 117 fl (84-94) H 11/06/18 11:17 MCH 38 pg (28-32) H 11/06/18 11:17 MCHC 32 % (32-34) 11/06/18 11:17 RDW 15.5 % (13.2-15.2) H 11/06/18 11:17 Plt Count 103 K/mm3 (140-440) L 11/06/18 11:17 Lymph % (Auto) 15.6 % (13.4-35.0) 11/04/18 05:21 [place] % (Auto) 8.7 % (0.0-7.3) H 11/04/18 05:21 Eos % (Auto) 1.8 % (0.0-4.3) 11/04/18 05:21 Baso % (Auto) 0.3 % (0.0-1.8) 11/04/18 05:21 Lymph # 0.7 K/mm3 (1.2-5.4) L 11/04/18 05:21 [place] # 0.4 K/mm3 (0.0-0.8) 11/04/18 05:21 Eos # 0.1 K/mm3 (0.0-0.4) 11/04/18 05:21 Baso # 0.0 K/mm3 (0.0-0.1) 11/04/18 05:21 Seg Neutrophils % 73.6 % (40.0-70.0) H 11/04/18 05:21 Seg Neutrophils # 3.2 K/mm3 (1.8-7.7) 11/04/18 05:21 PT 15.3 Sec. (12.2-14.9) H 11/03/18 15:50 INR 1.24 (0.87-1.13) H 11/03/18 15:50 POC ABG pH 7.393 (7.35-7.45) 11/03/18 14:09 POC ABG pCO2 34.8 (35-45) L 11/03/18 14:09 POC ABG pO2 157 (80-105) H 11/03/18 14:09 POC ABG HCO3 21.2 (22-26 mml/L) 11/03/18 14:09 POC ABG Total CO2 22 (23-27mmol/L) 11/03/18 14:09 POC ABG O2 Sat 99 11/03/18 14:09 POC ABG Base Excess -4 ((-2) - (+3)mmol/L) 11/03/18 14:09 VBG pH 7.344 (7.320-7.420) 11/03/18 15:50 100 % 11/03/18 14:09 Sodium 138 mmol/L (137-145) 11/06/18 05:46 Potassium 5.2 mmol/L (3.6-5.0) H 11/06/18 05:46 Chloride 109.4 mmol/L (98-107) H 11/06/18 05:46 Carbon Dioxide 15 mmol/L (22-30) L 11/06/18 05:46 19 mmol/L 11/06/18 05:46 BUN 40 mg/dL (9-20) H 11/06/18 05:46 2.0 mg/dL (0.8-1.5) H 11/06/18 05:46 Estimated GFR 40 ml/min 11/06/18 05:46 20 % 11/06/18 05:46 Glucose 90 mg/dL (75-100) 11/06/18 05:46 POC Glucose 158 (70-105) H 11/06/18 12:14 7.8 % (4-6) H 11/03/18 14:07 Lactic Acid 1.40 mmol/L (0.7-2.0) 11/03/18 19:32 Calcium 8.4 mg/dL (8.4-10.2) 11/06/18 05:46 Magnesium 2.20 mg/dL (1.7-2.3) 11/03/18 14:20 0.40 mg/dL (0.1-1.2) 11/04/18 05:21 AST 27 units/L (5-40) 11/04/18 05:21 ALT 35 units/L (7-56) 11/04/18 05:21 304 units/L (35-129) H 11/04/18 05:21 100 units/L (55-170) 11/03/18 14:20 5.7 g/dL (6.3-8.2) L 11/04/18 05:21 2.6 g/dL (3.9-5) L 11/04/18 05:21 0.8 % 11/04/18 05:21 Yellow (Yellow) 11/03/18 14:58 Clear (Clear) 11/03/18 14:58 5.0 (5.0-7.0) 11/03/18 14:58 Ur Specific [place] 1.015 (1.003-1.030) 11/03/18 14:58 >500 mg/dL (Negative) 11/03/18 14:58 50 mg/dL (Negative) 11/03/18 14:58 Neg mg/dL (Negative) 11/03/18 14:58 Sm (Negative) 11/03/18 14:58 Neg (Negative) 11/03/18 14:58 Neg (Negative) 11/03/18 14:58 < 2.0 mg/dL (<2.0) 11/03/18 14:58 Ur Leukocyte Esterase Neg (Negative) 11/03/18 14:58 3.0 /HPF (0.0-6.0) 11/03/18 14:58 < 1.0 /HPF (0.0-6.0) 11/03/18 14:58 U Epithel Cells (Auto) < 1.0 /HPF (0-13.0) 11/03/18 14:58 1+ /HPF (Negative) 11/03/18 14:58 Few /HPF 11/03/18 14:58 Salicylates < 0.3 mg/dL (2.8-20.0) L 11/03/18 14:20 Acetaminophen < 5.0 ug/mL (10.0-30.0) L 11/03/18 14:20 Active Medications - Current Medications Current Medications: Generic Name Dose Route Start Last Admin Trade Name Freq PRN Reason Stop Dose Admin Abacavir Sulfate 300 mg 11/04/18 10:00 11/06/18 10:05 Ziagen PO 300 mg DAILY KEN Administration Acetaminophen 650 mg 11/03/18 20:06 Tylenol PO Q4H PRN Pain MILD(1-3)/Fever >100.5/SIMMONS Aspirin 81 mg 11/04/18 10:00 11/06/18 10:10 Baby Aspirin PO 81 mg QDAY KEN Administration Atorvastatin Calcium 20 mg 11/04/18 20:30 11/06/18 10:10 Lipitor PO 20 mg QDAY KEN Administration Carvedilol 6.25 mg 11/03/18 22:00 11/06/18 11:06 Coreg PO Not Given BID KEN Dextrose 50 ml 11/03/18 14:12 11/03/18 22:02 D50w (25gm) Syringe IV 50 ml PRN PRN Administration Hypoglycemia Enoxaparin Sodium 40 mg 11/06/18 10:00 11/06/18 10:08 Lovenox SUB-Q 40 mg QDAY@1000 KEN Administration Famotidine 10 mg 11/05/18 22:00 11/06/18 10:10 Pepcid PO 10 mg BID KEN Administration Hydromorphone HCl 0.5 mg 11/03/18 20:06 11/04/18 22:54 Dilaudid IV 0.5 mg Q3H PRN Administration Pain , Severe (7-10) Ceftriaxone Sodium 2 gm in 100 mls @ 200 mls/hr 11/03/18 21:00 11/06/18 10:06 Rocephin/Ns 2 Gm/100 Ml IV 200 mls/hr Q24HR KEN Administration Protocol Sodium Bicarbonate 150 meq/ 1,150 mls @ 75 mls/hr 11/06/18 15:00 Sterile Water IV DIRECT KEN Insulin Human Lispro 0 unit 11/03/18 22:00 11/06/18 12:11 Humalog SUB-Q 1 unit ACHS KEN Administration Protocol Lamivudine 150 mg 11/04/18 10:00 11/06/18 10:10 Epivir PO 150 mg DAILY KEN Administration Memantine 5 mg 11/03/18 21:00 11/06/18 10:04 Namenda PO 5 mg QDAY KEN Administration Metoclopramide HCl 5 mg 11/05/18 11:00 Reglan IV Q6H PRN Nausea And Vomiting Ondansetron HCl 4 mg 11/03/18 20:06 11/05/18 22:03 Zofran IV 4 mg Q8H PRN Administration Nausea And Vomiting Raltegravir 400 mg 11/03/18 22:00 11/06/18 10:05 Isentress PO 400 mg BID KEN Administration Sodium Chloride 10 ml 11/03/18 22:00 11/06/18 11:07 Sodium Chloride Flush Syringe 10 Ml IV 10 ml BID KEN Administration Sodium Chloride 10 ml 11/03/18 20:06 Sodium Chloride Flush Syringe 10 Ml IV PRN PRN LINE FLUSH Tamsulosin HCl 0.4 mg 11/03/18 22:00 11/05/18 22:03 Flomax PO 0.4 mg QHS KEN Administration Zidovudine 300 mg 11/04/18 10:00 11/06/18 10:04 Retrovir PO 300 mg DAILY KEN Administration
--- NOTE | 2018-11-06 15:53 | Consultation ---
History of Present Illness - Reason for Consult Consult date: 11/06/18 - History of Present Illness Mr. Kendrick is a 73 yo M PMHx HIV on ART, DM2, HTN, CKD, CHF, dementia, traumatic subarachnoid hemorrhage who presents with AMS for 2 days prior to admission. He was recently admitted for the same complaints including metabolic encephalopathy, hypoxemic resp failure, [place]. For the 2 days prior to admission the family notes that he was more lethargic and confused with shallow breathing. They deny any systemic infective symptoms such as fevers, sweats, chills. After being seen by the EMS they found him to be hypoglycemic and was given D50. He was unable to communicate with me and thus the history is taken from the chart He has a long history of HIV and his ART regimen is lamivudine, abacavir, raltegravir, and zidovudine. No CD4 or viral load is in the chart. Afebrile since admission with a normal white count. BCx from 11/03/18 are NGTD. There is an ulcer of the lateral R great toe present. Head CT with new ischemia from previous study in poncho L tempero-occipital region. CXR with plate-like atelectasis stable from prior month. Past History Past Medical History: diabetes, hypertension, hyperlipidemia, renal failure, stroke, other (HIV) Past Surgical History: No surgical history Social history: denies: smoking, alcohol abuse Family history: diabetes, hypertension Medications and Allergies Allergies Allergy/AdvReac Type Severity Reaction Status Date / Time No Known Allergies Allergy Unverified 03/29/16 00:43 Home Medications Medication Instructions Recorded Confirmed Last Taken Type Aspirin [Aspirin BABY CHEW TAB] 81 mg PO QDAY #30 tab.chew 11/15/17 11/03/18 Unknown Rx Abacavir/Lamivudine/Zidovudine 1 tab PO DAILY 05/21/18 11/03/18 Unknown History Amlodipine Besylate 10 mg PO QDAY 05/21/18 11/03/18 Unknown History Carvedilol 6.25 mg PO BID 05/21/18 11/03/18 Unknown History Isentress 400 mg PO Q12HR 05/21/18 11/03/18 Unknown History Levemir Flextouch 60 unit SUB-Q QHS 05/21/18 11/03/18 Unknown History Lisinopril 40 mg PO DAILY 05/21/18 11/03/18 Unknown History Metformin HCl 500 mg PO BID 05/21/18 11/03/18 Unknown History Rosuvastatin Calcium 10 mg PO DAILY 05/21/18 11/03/18 Unknown History Tamsulosin HCl 0.4 mg PO HS 05/21/18 11/03/18 Unknown History Memantine [Namenda] 5 mg PO QDAY #30 tablet 11/01/18 11/03/18 Unknown Rx Active Meds: Active Medications Abacavir Sulfate (Ziagen) 300 mg PO DAILY [facility] Last Admin: 11/06/18 10:05 Dose: 300 mg Documented by: Acetaminophen (Tylenol) 650 mg PO Q4H PRN PRN Reason: Pain MILD(1-3)/Fever >100.5/SIMMONS Aspirin (Baby Aspirin) 81 mg PO QDAY [facility] Last Admin: 11/06/18 10:10 Dose: 81 mg Documented by: Atorvastatin Calcium (Lipitor) 20 mg PO QDAY [facility] Last Admin: 11/06/18 10:10 Dose: 20 mg Documented by: Carvedilol (Coreg) 6.25 mg PO BID [facility] Last Admin: 11/06/18 11:06 Dose: Not Given Documented by: Dextrose (D50w (25gm) Syringe) 50 ml IV PRN PRN PRN Reason: Hypoglycemia Last Admin: 11/03/18 22:02 Dose: 50 ml Documented by: Enoxaparin Sodium (Lovenox) 40 mg SUB-Q QDAY@1000 [facility] Last Admin: 11/06/18 10:08 Dose: 40 mg Documented by: Famotidine (Pepcid) 10 mg PO BID [facility] Last Admin: 11/06/18 10:10 Dose: 10 mg Documented by: Hydromorphone HCl (Dilaudid) 0.5 mg IV Q3H PRN PRN Reason: Pain , Severe (7-10) Last Admin: 11/04/18 22:54 Dose: 0.5 mg Documented by: Ceftriaxone Sodium (Rocephin/Ns 2 Gm/100 Ml) 2 gm in 100 mls @ 200 mls/hr IV Q24HR [facility]; Protocol Last Admin: 11/06/18 10:06 Dose: 200 mls/hr Documented by: Sodium Bicarbonate 150 meq/ (Sterile Water) 1,150 mls @ 75 mls/hr IV DIRECT [facility] Insulin Human Lispro (Humalog) 0 unit SUB-Q ACHS [facility]; Protocol Last Admin: 11/06/18 12:11 Dose: 1 unit Documented by: Lamivudine (Epivir) 150 mg PO DAILY [facility] Last Admin: 11/06/18 10:10 Dose: 150 mg Documented by: Memantine (Namenda) 5 mg PO QDAY [facility] Last Admin: 11/06/18 10:04 Dose: 5 mg Documented by: Metoclopramide HCl (Reglan) 5 mg IV Q6H PRN PRN Reason: Nausea And Vomiting Ondansetron HCl (Zofran) 4 mg IV Q8H PRN PRN Reason: Nausea And Vomiting Last Admin: 11/05/18 22:03 Dose: 4 mg Documented by: Raltegravir (Isentress) 400 mg PO BID [facility] Last Admin: 11/06/18 10:05 Dose: 400 mg Documented by: Sodium Chloride (Sodium Chloride Flush Syringe 10 Ml) 10 ml IV BID [facility] Last Admin: 11/06/18 11:07 Dose: 10 ml Documented by: Sodium Chloride (Sodium Chloride Flush Syringe 10 Ml) 10 ml IV PRN PRN PRN Reason: LINE FLUSH Tamsulosin HCl (Flomax) 0.4 mg PO QHS [facility] Last Admin: 11/05/18 22:03 Dose: 0.4 mg Documented by: Zidovudine (Retrovir) 300 mg PO DAILY [facility] Last Admin: 11/06/18 10:04 Dose: 300 mg Documented by: Review of Systems ROS unobtainable: due to mental status Physical Examination - Physical Exam Narrative exam: Constitutional: open eyes to voice, does not follow commands. Non-verbal. Head, Ears, Nose: Normocephalic, atraumatic. External ears, nose normal Eyes: Conjunctivae/corneas clear. No icterus. No ptosis. Neck: Supple, no meningeal signs Oral: fair dentition, moist mucous membranes Cardiovascular: S1, S2 normal. Normal rhythm Respiratory: Good air entry, clear to auscultation bilaterally GI: Soft, non-tender; bowel sounds normal. No peritoneal signs Musculoskeletal: No pedal edema, small ulcer lateral aspct of R great toe - dry Skin: No rash or abscess Hem/Lymphatic: No palpable cervical or supraclavicular nodes. No lymphangitis Psych: no agitation Neurological: Moves all extremities, confused - Constitutional Vitals: Vital Signs Temp Pulse Resp BP Pulse Ox 97.8 F 92 H 20 105/75 98 11/06/18 13:11 11/06/18 13:09 11/06/18 13:09 11/06/18 13:09 11/06/18 13:09 Temperature -Last 24 Hours Temperature 97.8 F Temperature 122.0 F Temperature 97.8 F Temperature 98.0 F Temperature 97.4 F Results - Labs CBC & Chem 7: 11/06/18 11:17 11/06/18 05:46 Labs: Abnormal lab results 11/05/18 11/05/18 11/06/18 Range/Units 16:53 21:09 05:46 WBC (4.5-11.0) K/mm3 RBC (3.65-5.03) M/mm3 Hgb (11.8-15.2) gm/dl Hct (35.5-45.6) % MCV (84-94) fl MCH (28-32) pg RDW (13.2-15.2) % Plt Count (140-440) K/mm3 Potassium 5.2 H (3.6-5.0) mmol/L Chloride 109.4 H (98-107) mmol/L Carbon Dioxide 15 L (22-30) mmol/L BUN 40 H (9-20) mg/dL Creatinine 2.0 H (0.8-1.5) mg/dL POC Glucose 176 H 135 H (70-105) 11/06/18 11/06/18 11/06/18 Range/Units 10:30 11:17 12:14 WBC 4.1 L (4.5-11.0) K/mm3 RBC 2.92 L (3.65-5.03) M/mm3 Hgb 11.0 L (11.8-15.2) gm/dl Hct 34.1 L (35.5-45.6) % MCV 117 H (84-94) fl MCH 38 H (28-32) pg RDW 15.5 H (13.2-15.2) % Plt Count 103 L (140-440) K/mm3 Potassium (3.6-5.0) mmol/L Chloride (98-107) mmol/L Carbon Dioxide (22-30) mmol/L BUN (9-20) mg/dL Creatinine (0.8-1.5) mg/dL POC Glucose 186 H 158 H (70-105) - Imaging and Cardiology Chest x-ray: image reviewed (consolidation stable from October, unlikely to be acute infective process. ) CT Scan - head: image reviewed (new ischemia tempero-occipital) Assessment and Plan Cultures: 11/03/18 BCx - NGTD A/P: Mr. Kendrick is a 73 yo M PMHx HIV on ART, DM2, HTN, CKD, CHF, dementia, traumatic subarachnoid hemorrhage who presents with AMS. 1. Altered mental status - given waxing and waning of AMS over the past few months, I feel it is less likely to be acutely infectious (i.e., bacterial or viral meningitis). Given he is on a regimen of ART, I don't necessarily expect him to be immunosuppressed (though he is elderly and in poor health) and his risk for Cryptococcal meningitis is low. I feel this is most likely due to progressive dementia and ischemia. 2. HIV - would get CD4 count, viral load, and HIV genotype. Given his family knows his regimen and report compliance I don't necessarily expect him to have a low CD4 count. He is on 4 different medications, and can likely be consolidated assuming he has no viral resistances. 3. Dementia 4. Dm2 5. HTN 6. CKD Recs: Stop ceftriaxone CD4/viral load/genotype (ordered) Thank you for the consult. We will continue to follow along with you. MD [facility] C: [phone] O: [phone] F: [phone]
[2018-11-06] MEDS: SODIUM BICARBONATE 150 MEQ in STERILE WATER 1,000 ML IV SCH (17:03)
[2018-11-06] MEDS: ZOFRAN IV PRN (21:44)
[2018-11-06] MEDS: FLOMAX PO SCH (21:44)
[2018-11-07 03:31] LABS: Hematocrit 35.9 % (35.5-45.6); Hemoglobin 11.5 gm/dl (11.8-15.2); Mean Corpuscular HGB Conc 32 % (32-34); Mean Corpuscular Volume 117 fl (84-94); Platelet Count 117 K/mm3 (140-440); Red Blood Count 3.07 M/mm3 (3.65-5.03); Red Cell Distribution Width 15.7 % (13.2-15.2)
[2018-11-07 03:39] LABS: Calcium 8.2 mg/dL (8.4-10.2)
[2018-11-07] MEDS: HumaLOG SUB-Q SCH ×2 (07:44→12:20)
[2018-11-07] MEDS: COREG PO SCH (10:04)
[2018-11-07] MEDS: BABY ASPIRIN PO SCH (10:04)
[2018-11-07] MEDS: PEPCID PO SCH (10:04)
[2018-11-07] MEDS: ZIAGEN PO SCH (10:04)
[2018-11-07] MEDS: EPIVIR PO SCH (10:05)
[2018-11-07] MEDS: NAMENDA PO SCH (10:05)
[2018-11-07] MEDS: ISENTRESS PO SCH (10:06)
[2018-11-07] MEDS: LOVENOX SUB-Q SCH (10:08)
[2018-11-07] MEDS: SODIUM CHLORIDE FLUSH SYRINGE 10 ML IV SCH (10:09)
[2018-11-07] MEDS: RETROVIR PO SCH (10:10)
[2018-11-07] MEDS: SODIUM BICARBONATE 150 MEQ in STERILE WATER 1,000 ML IV SCH (10:16)
--- NOTE | 2018-11-07 10:53 | Progress Note ---
Assessment and Plan 1. Acute kidney injury: Vasomotor CONNIE superimposed on CKD stage 3. Renal function is slightly better today. Continue IV fluids. Monitor renal function. Renal prognosis is gaurded. Avoid nephrotoxic agents. Meds dosage based on GFR. 2. FEN: Volume depletion, IV fluids. Metabolic acidosis, IV bicarbonate. Hyperkalemia, improved. Monitor lytes. 3. Hypoglycemia: Now improved. Monitor. 4. Acute metabolic encephalopathy. 5. Severe dilated cardiomyopathy and chronic LV systolic dysfunction: Compensated. 6. HIV. 7. DM type 2. 8. HTN: Monitor BP. Subjective Date of service: 11/07/18 Interval history: Patient was seen and examined at the bedside. Objective - Vital Signs Vital signs: Vital Signs - 12hr 11/07/18 11/07/18 11/07/18 00:16 04:19 07:40 Temperature 98.2 F 97.8 F 98.0 F Pulse Rate 90 102 H 107 H Respiratory 18 18 20 Rate Blood Pressure 117/78 130/56 171/103 O2 Sat by Pulse 100 95 93 Oximetry 11/07/18 11/07/18 11/07/18 09:11 10:04 10:21 Temperature Pulse Rate 107 H Respiratory Rate Blood Pressure 171/103 121/71 O2 Sat by Pulse 100 Oximetry 11/07/18 10:22 Temperature Pulse Rate 97 H Respiratory Rate Blood Pressure O2 Sat by Pulse Oximetry - General Appearance General appearance: well-developed, appears stated age, other (no distress) EENT: ATNC, PERRL Neck: supple Respiratory: Present: Clear to Ascultation Cardiology: regular, S1S2, no murmurs Gastrointestinal: normoactive bowel sounds, no tenderness, no distended Integumentary: no rash, warm and dry Neurologic: no focal deficit, no asterixis Musculoskeletal: other (no edema) - Lab 11/07/18 03:15 11/07/18 03:15 Most recent lab results Calcium 8.2 mg/dL (8.4-10.2) L 11/07/18 03:15 Magnesium 2.20 mg/dL (1.7-2.3) 11/03/18 14:20 Medications & Allergies - Medications Allergies/Adverse Reactions: Allergies No Known Allergies Allergy (Unverified 03/29/16 00:43) Home Medications: Home Medications Medication Instructions Recorded Confirmed Last Taken Type Aspirin [Aspirin BABY CHEW TAB] 81 mg PO QDAY #30 tab.chew 11/15/17 11/03/18 Unknown Rx Abacavir/Lamivudine/Zidovudine 1 tab PO DAILY 05/21/18 11/03/18 Unknown History Amlodipine Besylate 10 mg PO QDAY 05/21/18 11/03/18 Unknown History Carvedilol 6.25 mg PO BID 05/21/18 11/03/18 Unknown History Isentress 400 mg PO Q12HR 05/21/18 11/03/18 Unknown History Levemir Flextouch 60 unit SUB-Q QHS 05/21/18 11/03/18 Unknown History Rosuvastatin Calcium 10 mg PO DAILY 05/21/18 11/03/18 Unknown History Tamsulosin HCl 0.4 mg PO HS 05/21/18 11/03/18 Unknown History Memantine [Namenda] 5 mg PO QDAY #30 tablet 11/01/18 11/03/18 Unknown Rx Albuterol Sulfate [Albuterol 0.63% 0.63 mg IH TID PRN 30 Days ml 11/07/18 Unknown Rx NEBS] AtorvaSTATin [Lipitor] 20 mg PO QDAY #30 tablet 11/07/18 Unknown Rx Famotidine [Pepcid] 10 mg PO BID #60 tablet 11/07/18 Unknown Rx Ipratropium/Albuterol Sulfate 1 ampul IH Q6HR 30 Days ampul.neb 11/07/18 Unknown Rx [DUONEB *Not for PRN Use*] Tamsulosin [Flomax] 0.4 mg PO QHS #30 capsule 11/07/18 Unknown Rx Active Medications: Generic Name Dose Route Start Last Admin Trade Name Freq PRN Reason Stop Dose Admin Abacavir Sulfate 300 mg 11/04/18 10:00 11/07/18 10:04 Ziagen PO 300 mg DAILY KEN Administration Acetaminophen 650 mg 11/03/18 20:06 Tylenol PO Q4H PRN Pain MILD(1-3)/Fever >100.5/SIMMONS Aspirin 81 mg 11/04/18 10:00 11/07/18 10:04 Baby Aspirin PO 81 mg QDAY KEN Administration Atorvastatin Calcium 20 mg 11/04/18 20:30 11/07/18 10:04 Lipitor PO 20 mg QDAY KEN Administration Carvedilol 6.25 mg 11/03/18 22:00 11/07/18 10:04 Coreg PO 6.25 mg BID KEN Administration Dextrose 50 ml 11/03/18 14:12 11/03/18 22:02 D50w (25gm) Syringe IV 50 ml PRN PRN Administration Hypoglycemia Enoxaparin Sodium 40 mg 11/06/18 10:00 11/07/18 10:08 Lovenox SUB-Q 40 mg QDAY@1000 KEN Administration Famotidine 10 mg 11/05/18 22:00 11/07/18 10:04 Pepcid PO 10 mg BID KEN Administration Hydromorphone HCl 0.5 mg 11/03/18 20:06 11/04/18 22:54 Dilaudid IV 0.5 mg Q3H PRN Administration Pain , Severe (7-10) Sodium Bicarbonate 150 meq/ 1,150 mls @ 75 mls/hr 11/06/18 16:00 11/07/18 10:16 Sterile Water IV 75 mls/hr DIRECT KEN Administration Insulin Human Lispro 0 unit 11/03/18 22:00 11/07/18 07:44 Humalog SUB-Q Not Given ACHS [facility] Protocol Lamivudine 150 mg 11/04/18 10:00 11/07/18 10:05 Epivir PO 150 mg DAILY KEN Administration Memantine 5 mg 11/03/18 21:00 11/07/18 10:05 Namenda PO 5 mg QDAY KEN Administration Metoclopramide HCl 5 mg 11/05/18 11:00 Reglan IV Q6H PRN Nausea And Vomiting Ondansetron HCl 4 mg 11/03/18 20:06 11/06/18 21:44 Zofran IV 4 mg Q8H PRN Administration Nausea And Vomiting Raltegravir 400 mg 11/03/18 22:00 11/07/18 10:06 Isentress PO 400 mg BID KEN Administration Sodium Chloride 10 ml 11/03/18 22:00 11/07/18 10:09 Sodium Chloride Flush Syringe 10 Ml IV 10 ml BID KEN Administration Sodium Chloride 10 ml 11/03/18 20:06 Sodium Chloride Flush Syringe 10 Ml IV PRN PRN LINE FLUSH Tamsulosin HCl 0.4 mg 11/03/18 22:00 11/06/18 21:44 Flomax PO 0.4 mg QHS KEN Administration Zidovudine 300 mg 11/04/18 10:00 11/07/18 10:10 Retrovir PO 300 mg DAILY KEN Administration
--- NOTE | 2018-11-07 11:03 | Discharge Summary ---
Providers - Providers Date of Admission: 11/04/18 12:18 Attending physician: ERICK DUBON MD 11/05/18 07:49 Consult to Physician [CONS] Routine Comment: Consulting Provider: CHRISTINE LEO Physician Instructions: Reason For Exam: acute on CKD 11/05/18 18:42 Physical Therapy Evaluation and Treat [CONS] Routine Comment: Reason For Exam: Weakness 11/06/18 15:13 Consult to Physician [CONS] Routine Comment: JEAN Consulting Provider: NEIL DAVENPORT Physician Instructions: WAS NOTIFIED Reason For Exam: AMS, PANCYTOPENIA Primary care physician: BRODY MCCONNELL Hospitalization Reason for admission: shortness of breath Condition: Stable Hospital course: Patient is a 73-year-old -[place] male has been lethargic and confused for the last 2 days. Patient has history of HIV, type 2 diabetes, CHF, cerebrovascular accident, dementia and traumatic subarachnoid hemorrhage. Family reports that patient has been lethargic and having shallow breathing for the last 36-48 hours. No fever or chills. Patient's blood glucose level was very low as per the EMS. Around 17. Was given [id number]--wumc which the patient's blood glucose came up to around 120s. And then dropped again. Patient was recently discharged after being treated for acute metabolic encephalopathy, suspected hypoxemic respiratory failure, acute CO and vasomotor nephropathy. Patient takes antiretrovirals for HIV. Head CT scan reports ischemia in the right temporo-occipital region. Finding are new when compared to prior study done May 2018. * From prior admission. MR brain without IMPRESSION: 1. No acute infarct or acute intracranial abnormality. 2. Chronic infarct in the right parietal lobe and the right MCA [place] watershed territory. Chronic lacunar infarct in the right paracentral marsha. 3. Moderate chronic deep cerebral white matter microvascular angiopathic change. Acute Metabolic Encephalopathy, poa, CT Head shows small vessel disease likely similar to prior. No clear evidence of new insult. Will obtain neurology eval, considering reoccurance and not clear if hypoglycemia is inciting or resultant, ID felt no infectious etiology . Continue aspirin and statin Type 2 DM uncontrolled hyperglycemia: treat with SSI, ADA, Hypoglycemia on Admission with blood glucose of 17. Per son patient often combative about diet and meds at home Acute hypoxic respiratory failure, poa: continue to wean O2, suspect component of MIRANDA- follow with pulmonary of sleep study HTN: Stable Acute on chronic systolic heart failure (congestive heart failure) 15-20%: and son states he will Follow up with his doctors at [facility], Cardiology is following, input noted, NSTEMI (non-ST elevated myocardial infarction) type 2, Likely from acute renal failure, Cardiology consulted in ED, medical management HIV (human immunodeficiency virus infection): continue antiretroviral therapy, supportive care Acute renal insufficiency, ATN + vasomotor nephropathy, poa: stable from prior admission, underlying CKD III monitor uop q shift, nephrology consulted in ED, urine electrolytes, strict I/O, monitor uop q shift, monitor fluid balance, monitor serum creatinine, Hyperkalemia: kaxyalate. Moderate malnutrition, poa: consult Information Engineer Hypernatremia: Likely from dehydration, increased by mouth free water intake Pancytopenia Atlalectasis: Add incentive spirometer. Discussed with son, nursing staff and also ID. Son also concerned about Hypoxia. Will get a room air ABG which was fine Disposition: DC/[facility] Time spent for discharge: 35 mins Core Measure Documentation - Palliative Care Palliative Care/ Comfort Measures: Not Applicable - Core Measures Any of the following diagnoses?: none Exam - Physical Exam Narrative exam: Gen: Not in acute distress, lying in bed, intermittently tries to conversate but non coherent HEENT: Normocephalic, atraumatic Neck: supple, no JVD Heart: S1 and S2 reg, no murmurs, rubs or gallop Lungs: Clear to auscultation bilaterally, no wheeze Abd: soft, non tender, non distended, normal BS, Ext: No edema, no clubbing, no cyanosis Neuro: Awake, confused - Constitutional Vitals: Temp Pulse Resp BP Pulse Ox 98.0 F 97 H 20 121/71 100 11/07/18 07:40 11/07/18 10:22 11/07/18 07:40 11/07/18 10:21 11/07/18 09:11 Plan Activity: advance as tolerated, fall precautions Diet: low fat Special Instructions: record daily weights, record daily BP diary Follow up with: [facility] [Outside] - 7 Days NEIL DAVENPORT MD [Staff Physician] - 7 Days PRIMARY CAREMD [Referring] - 3-5 Days PARUL CHÁVEZ MD [Staff Physician] - 7 Days Forms: Accompanied Note Prescriptions: Tamsulosin [Flomax] 0.4 mg PO QHS #30 capsule Albuterol Sulfate [Albuterol 0.63% NEBS] 0.63 mg IH TID PRN 30 Days ml PRN Reason: Wheezing Ipratropium/Albuterol Sulfate [DUONEB *Not for PRN Use*] 1 ampul IH Q6HR 30 Days ampul.neb AtorvaSTATin [Lipitor] 20 mg PO QDAY #30 tablet Famotidine [Pepcid] 10 mg PO BID #60 tablet
--- NOTE | 2018-11-07 11:06 | Progress Note ---
Assessment and Plan Cultures: 11/03/18 BCx - NGTD A/P: Mr. Kendrick is a 73 yo M PMHx HIV on ART, DM2, HTN, CKD, CHF, dementia, traumatic subarachnoid hemorrhage who presents with AMS. 1. Altered mental status - Improved today. Less likely to be acutely infectious (i.e., bacterial or viral meningitis). Given he is on a regimen of ART, I don't necessarily expect him to be immunosuppressed (though he is elderly and in poor health) and his risk for Cryptococcal meningitis is low. I feel this is most likely due to progressive dementia and ischemia. 2. HIV - would get CD4 count, viral load, and HIV genotype. Given his family knows his regimen and report compliance I don't necessarily expect him to have a low CD4 count. He is on 4 different medications, and can likely be consolidated assuming he has no viral resistances. 3. Dementia 4. Dm2 5. HTN 6. CKD Recs: Follow-up CD4/viral load/genotype Follow-up [facility] in 2 weeks for results (sent to therapeutic massage technician) [facility] M: [id number] O:[phone] Subjective Date of service: 11/07/18 Interval history: Patient seen and examined. Sitting up in bed eating. Answering question appropriately. Following commands. No fever. Objective - Exam Narrative Exam: Constitutional: Awake. Alert. No acute distress reported Head, Ears, Nose: Normocephalic, atraumatic. External ears, nose normal Eyes: Conjunctivae/corneas clear. No icterus. No ptosis. Neck: Supple, no meningeal signs Oral: fair dentition, moist mucous membranes Cardiovascular: S1, S2 normal. Normal rhythm Respiratory: Good air entry, Bilateral wheezing. 02 4L GI: Soft, non-tender; bowel sounds normal. No peritoneal signs Musculoskeletal: No pedal edema, small ulcer lateral aspct of R great toe - dry Skin: No rash or abscess Hem/Lymphatic: No palpable cervical or supraclavicular nodes. No lymphangitis Psych: Calm Neurological: Moves all extremities, answering question appropriately. following simple commands - Constitutional Vitals: Vital Signs Temp Pulse Resp BP Pulse Ox 98.0 F 97 H 20 121/71 100 11/07/18 07:40 11/07/18 10:22 11/07/18 07:40 11/07/18 10:21 11/07/18 09:11 Temperature -Last 24 Hours Temperature 98.0 F Temperature 97.8 F Temperature 98.2 F Temperature 98.0 F Temperature 98.9 F Temperature 97.8 F Temperature 122.0 F - Labs CBC & Chem 7: 11/07/18 03:15 11/07/18 03:15 Labs: Abnormal lab results 11/06/18 11/06/18 11/06/18 Range/Units 11:17 12:14 16:40 WBC 4.1 L (4.5-11.0) K/mm3 RBC 2.92 L (3.65-5.03) M/mm3 Hgb 11.0 L (11.8-15.2) gm/dl Hct 34.1 L (35.5-45.6) % MCV 117 H (84-94) fl MCH 38 H (28-32) pg RDW 15.5 H (13.2-15.2) % Plt Count 103 L (140-440) K/mm3 Chloride (98-107) mmol/L BUN (9-20) mg/dL Creatinine (0.8-1.5) mg/dL Glucose (75-100) mg/dL POC Glucose 158 H 169 H (70-105) Calcium (8.4-10.2) mg/dL 11/06/18 11/07/18 11/07/18 Range/Units 21:53 03:15 03:15 WBC 4.0 L (4.5-11.0) K/mm3 RBC 3.07 L (3.65-5.03) M/mm3 Hgb 11.5 L (11.8-15.2) gm/dl Hct (35.5-45.6) % MCV 117 H (84-94) fl MCH 38 H (28-32) pg RDW 15.7 H (13.2-15.2) % Plt Count 117 L (140-440) K/mm3 Chloride 110.2 H (98-107) mmol/L BUN 38 H (9-20) mg/dL Creatinine 1.9 H (0.8-1.5) mg/dL Glucose 120 H (75-100) mg/dL POC Glucose 178 H (70-105) Calcium 8.2 L (8.4-10.2) mg/dL
--- NOTE | 2018-11-07 14:26 | Magnetic Resonance Report ---
MRI BRAIN WITHOUT CONTRAST INDICATION / CLINICAL INFORMATION: ENCEPHALOPATHY. TECHNIQUE: Multiplanar, multisequence MR images of the brain were obtained. COMPARISON: MRI brain 10/29/[address] 11/03/2018, 10/24/2018 and 05/22/2018. FINDINGS: Limitations: Patient motion artifact degrades image quality on multiple scan sequences. BRAIN / INTRACRANIAL CONTENTS: Age-related parenchymal volume loss is demonstrated. Dilatation of the cortical sulci and ventricular system is noted in keeping with the patient's stated age of 73. Periv entricular and deep white matter hyperintensities noted consistent with moderate microvascular ischem ic changes. There is no mass effect. Remote blood brain down products are present in the posterior josue dy of the right lateral ventricle. Hemorrhage was observed in this location on head CT 05/22/2018. Thi s finding is stable since MRI of brain dated 10/29/2018. No evidence of recent intracranial hemorrhage or extra-axial fluid collection is seen. An area of encephalomalacia is observed in the right pariet al lobe secondary to remote infarction. This is unchanged. Incidental note is made of dilated perivas cular spaces in the basal ganglia regions bilaterally. Diffusion weighted scans are negative. There i s no indication of acute ischemic injury. A remote small deep pontine infarction lateralizes to the right of the midline. This is unchanged. Br ain stem has an otherwise unremarkable appearance. No focal cerebellar lesions are identified. CRANIOCERVICAL JUNCTION: No abnormalities are identified at the craniocervical junction. VASCULAR FLOW-VOIDS: Normal flow-voids are present within the major intracranial vessels. ORBITS: The orbits have an unremarkable appearance. SINUSES / MASTOIDS: There is no indication of inflammatory disease in the paranasal sinuses or mastoi d air cells. IMPRESSION: 1. Age-related atrophy and microvascular ischemic change. 2. Remote cortical infarction right parietal lobe. 3. Remote small deep infarction within the marsha. 4. No acute intracranial abnormality. Signer Name: Anil Foy MD Signed: 11/07/2018 2:22 PM Workstation Name: [id number]
[2018-11-07 15:16] VITALS: BP 103/79
== END 2018-11-07 16:00 | DRG 280 ==
LOC: ED 13:50 → 2B-ACE 15:25 → OBSVTOIN 11-04 12:18
PROVIDERS: ADMIT Internal Medicine; ATTEND Internal Medicine
DX: I21.A1 Myocardial infarction type 2 (principal); N17.0 Acute kidney failure with tubular necrosis; G93.41 Metabolic encephalopathy; J96.01 Acute respiratory failure with hypoxia; I50.23 Acute on chronic systolic (congestive) heart failure; I42.0 Dilated cardiomyopathy; I13.0 Hypertensive heart and chronic kidney disease with heart failure and stage 1 through stage 4 chronic kidney disease, or unspecified chronic kidney disease; E87.0 Hyperosmolality and hypernatremia; E87.2 Acidosis; D61.818 Other pancytopenia; J98.11 Atelectasis; E44.0 Moderate protein-calorie malnutrition; E11.649 Type 2 diabetes mellitus with hypoglycemia without coma; E86.0 Dehydration; E87.5 Hyperkalemia; E78.2 Mixed hyperlipidemia; Z21 Asymptomatic human immunodeficiency virus [HIV] infection status; N40.1 Benign prostatic hyperplasia with lower urinary tract symptoms; E11.22 Type 2 diabetes mellitus with diabetic chronic kidney disease; N18.3 Chronic kidney disease, stage 3 (moderate); E86.9 Volume depletion, unspecified; I50.9 Heart failure, unspecified; F03.90 Unspecified dementia, unspecified severity, without behavioral disturbance, psychotic disturbance, mood disturbance, and anxiety; C61 Malignant neoplasm of prostate; J43.9 Emphysema, unspecified; Z86.73 Personal history of transient ischemic attack (TIA), and cerebral infarction without residual deficits; Z79.82 Long term (current) use of aspirin; Z79.899 Other long term (current) drug therapy; Z79.2 Long term (current) use of antibiotics; Z79.4 Long term (current) use of insulin; Z68.21 Body mass index [BMI] 21.0-21.9, adult; E11.65 Type 2 diabetes mellitus with hyperglycemia
CPT/HCPCS: 36415; 70450; 70551; 71045; 80048; 80053; 80320; 81001; 82024; 82140; 82550; 82803; 82805; 82962; 83036; 83735; 85025; 85027; 85610; 87040; 87535; 87901; 93005; 93010; 94760; 96361; 96374; G0378; A9270-GY; G0480; J0696; J1170; J1650; J1815; J2405; J3246; J7030; J7040; J7070

== ENCOUNTER 2018-11-09 06:27 | Inpatient (IN) | payer MEDICARE ==
[2018-11-09] MEDS ORDERED: D50W (25GM) Syringe IV ONE (06:34)
[2018-11-09] MEDS ORDERED: NACL 0.9% 500 ML 1,000 ML IV ONE (06:43)
[2018-11-09] MEDS ORDERED: DUONEB *Not for PRN Use IH ONE (06:43)
[2018-11-09] MEDS ORDERED: NACL 0.9% 1000 ML 1,000 ML ONE (06:45)
--- NOTE | 2018-11-09 06:51 | Emergency Department Report ---
ED General Adult HPI - General Chief complaint: Altered Mental Status Stated complaint: HYPOGLYCEMIA Time Seen by Provider: 11/09/18 06:32 Source: patient, EMS Mode of arrival: Ambulatory Limitations: Altered Mental Status - History of Present Illness Initial comments: This is a 73-year-old male with a history of insulin-dependent diabetes and HIV residing in a [facility]dc sent for evaluation of altered mental status. Paramedics found him to have a pulse oximetry of 82% in the fdc. He was diaphoretic. His Accu-Chek was 15. They administered a bag of D5 because they had no D50 available. They stated that the patient's diaphoresis improved and that he became more responsive. He however remains non-verbal. Apparently he was found by staff upon their rounds at the fdc. It is unknown the duration of the patient's symptoms. It appears patient's presentation is quite similar to his recent admission: Patient is a 73-year-old -[place] male has been lethargic and confused for the last 2 days. Patient has history of HIV, type 2 diabetes, CHF, cerebrovascular accident, dementia and traumatic subarachnoid hemorrhage. Family reports that patient has been lethargic and having shallow breathing for the last 36-48 hours. No fever or chills. Patient's blood glucose level was very low as per the EMS. Around 17. Was given [id number] which the patient's blood glucose came up to around 120s. And then dropped again. Patient was recently discharged after being treated for acute metabolic encephal opathy, suspected hypoxemic respiratory failure, acute NC and vasomotor nephropathy. Patient takes antiretrovirals for HIV. Head CT scan reports ischemia in the right temporo-occipital region. Finding are new when compared to prior study done May 2018. From prior admission. MR brain without IMPRESSION: 1. No acute infarct or acute intracranial abnormality. 2. Chronic infarct in the right parietal lobe and the right MCA [employer] watershed territory. Chronic lacunar infarct in the right paracentral [place]. 3. Moderate chronic deep cerebral white matter microvascular angiopathic change. Acute Metabolic Encephalopathy, poa, CT Head shows small vessel disease likely similar to prior. No clear evidence of new insult. Will obtain neurology eval, considering reoccurance and not clear if hypoglycemia is inciting or resultant, will obtain ID consult to ensure no central infectious disease. Continue aspirin and statin Type 2 DM uncontrolled hyperglycemia: treat with SSI, ADA, Hypoglycemia on Admission with blood glucose of 17. Per son patient often combative about diet and meds at home Acute hypoxic respiratory failure, poa: continue to wean O2, suspect component of MIRANDA- follow with pulmonary of sleep study HTN: Stable Acute on chronic systolic heart failure (congestive heart failure) 15-20%: and son states he will Follow up with his doctors at [place], Cardiology is following, input noted, NSTEMI (non-ST elevated myocardial infarction) type 2, Likely from acute renal failure, Cardiology consulted in ED, medical management HIV (human immunodeficiency virus infection): continue antiretroviral therapy, supportive care Acute renal insufficiency, ATN + vasomotor nephropathy, poa: stable from prior admission, underlying CKD III monitor uop q shift, nephrology consulted in ED, urine electrolytes, strict I/O, monitor uop q shift, monitor fluid balance, monitor serum creatinine, Hyperkalemia: kaxyalate. 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 -: unknown - Related Data Home Medications Medication Instructions Recorded Confirmed Last Taken Abacavir/Lamivudine/Zidovudine 1 tab PO DAILY 05/21/18 11/03/18 Unknown Amlodipine Besylate 10 mg PO QDAY 05/21/18 11/03/18 Unknown Carvedilol 6.25 mg PO BID 05/21/18 11/03/18 Unknown Isentress 400 mg PO Q12HR 05/21/18 11/03/18 Unknown Levemir Flextouch 60 unit SUB-Q QHS 05/21/18 11/03/18 Unknown Rosuvastatin Calcium 10 mg PO DAILY 05/21/18 11/03/18 Unknown Tamsulosin HCl 0.4 mg PO HS 05/21/18 11/03/18 Unknown Previous Rx's Medication Instructions Recorded Last Taken Type Aspirin [Aspirin BABY CHEW TAB] 81 mg PO QDAY #30 tab.chew 11/15/17 Unknown Rx Memantine [Namenda] 5 mg PO QDAY #30 tablet 11/01/18 Unknown Rx Albuterol Sulfate [Albuterol 0.63% 0.63 mg IH TID PRN 30 Days ml 11/07/18 Unknown Rx NEBS] AtorvaSTATin [Lipitor] 20 mg PO QDAY #30 tablet 11/07/18 Unknown Rx Famotidine [Pepcid] 10 mg PO BID #60 tablet 11/07/18 Unknown Rx Ipratropium/Albuterol Sulfate 1 ampul IH Q6HR 30 Days ampul.neb 11/07/18 Unknown Rx [DUONEB *Not for PRN Use*] Tamsulosin [Flomax] 0.4 mg PO QHS #30 capsule 11/07/18 Unknown Rx Allergies Allergy/AdvReac Type Severity Reaction Status Date / Time No Known Allergies Allergy Unverified 03/29/16 00:43 ED Review of Systems ROS: Stated complaint: HYPOGLYCEMIA Other details as noted in HPI Comment: Unobtainable due to pts medical conditions ED Past Medical Hx - Past Medical History Previous Medical History?: Yes Hx Hypertension: Yes Hx CVA: Yes (x2) Hx Diabetes: Yes Hx COPD: Yes Hx HIV: Yes Additional medical history: prostate cancer, hyperlipidemia, emphysema - Surgical History Additional Surgical History: vincenzo hip surgery - Social History Smoking Status: Unknown if ever smoked Other Social History: [facility] resident - Medications Home Medications: Home Medications Medication Instructions Recorded Confirmed Last Taken Type Aspirin [Aspirin BABY CHEW TAB] 81 mg PO QDAY #30 tab.chew 11/15/17 11/03/18 Unknown Rx Abacavir/Lamivudine/Zidovudine 1 tab PO DAILY 05/21/18 11/03/18 Unknown History Amlodipine Besylate 10 mg PO QDAY 05/21/18 11/03/18 Unknown History Carvedilol 6.25 mg PO BID 05/21/18 11/03/18 Unknown History Isentress 400 mg PO Q12HR 05/21/18 11/03/18 Unknown History Levemir Flextouch 60 unit SUB-Q QHS 05/21/18 11/03/18 Unknown History Rosuvastatin Calcium 10 mg PO DAILY 05/21/18 11/03/18 Unknown History Tamsulosin HCl 0.4 mg PO HS 05/21/18 11/03/18 Unknown History Memantine [Namenda] 5 mg PO QDAY #30 tablet 11/01/18 11/03/18 Unknown Rx Albuterol Sulfate [Albuterol 0.63% 0.63 mg IH TID PRN 30 Days ml 11/07/18 Unknown Rx NEBS] AtorvaSTATin [Lipitor] 20 mg PO QDAY #30 tablet 11/07/18 Unknown Rx Famotidine [Pepcid] 10 mg PO BID #60 tablet 11/07/18 Unknown Rx Ipratropium/Albuterol Sulfate 1 ampul IH Q6HR 30 Days ampul.neb 11/07/18 Unknown Rx [DUONEB *Not for PRN Use*] Tamsulosin [Flomax] 0.4 mg PO QHS #30 capsule 11/07/18 Unknown Rx ED Physical Exam - General Limitations: Altered Mental Status General appearance: lethargic - Head Head exam: Present: atraumatic - Eye Eye exam: Present: normal appearance. Absent: scleral icterus, periorbital swelling Pupils: Present: other (A for reactive) - ENT ENT exam: Present: normal exam (no obvious abnormalities on inspection) - Neck Neck exam: Present: normal inspection. Absent: tenderness, meningismus - Respiratory Respiratory exam: Present: other (bilateral wheeze, normal work of breathing, increased AP diameter) - Cardiovascular Cardiovascular Exam: Present: regular rate, normal rhythm. Absent: systolic murmur, diastolic murmur, rubs, gallop - GI/Abdominal GI/Abdominal exam: Present: soft, normal bowel sounds. Absent: distended, tenderness, guarding - Extremities Exam Extremities exam: Present: normal inspection. Absent: calf tenderness - Neurological Exam Neurological exam: Present: other (lethargic/obtunded. Protecting his airway however.) - Psychiatric Psychiatric exam: Present: other (obtunded) - Skin Skin exam: Present: warm, dry, intact, normal color. Absent: rash ED Course Vital Signs 11/09/18 11/09/18 11/09/18 07:11 08:02 09:00 Temperature 93.6 F L Pulse Rate 99 H 88 Pulse Rate [ 98 H Anterior Bilateral Throughout] Respiratory 13 16 Rate Respiratory 18 Rate [Anterior Bilateral Throughout] Blood Pressure 119/95 145/93 [Right] O2 Sat by Pulse 97 95 Oximetry - Reevaluation(s) Reevaluation #1: Patient's blood sugar has been monitored. So far he does not have recurrent hypoglycemia but I have ordered every hour Accu-Cheks. I will check the nurses on those reports. He was treated currently for sepsis. He is hypothermic. Warming blanket has been ordered. He will be admitted to the hospitalist service for further care and evaluation. 11/09/18 08:54 Reevaluation #2: Discussed with hospitalist. They have assumed care. 11/09/18 09:44 ED Medical Decision Making - Lab Data Result diagrams: 11/09/18 06:50 11/09/18 06:50 Laboratory Results - last 24 hr 11/09/18 11/09/18 11/09/18 06:37 06:46 06:50 WBC 3.4 L RBC 3.16 L Hgb 12.3 Hct 37.2 MCV 118 H MCH 39 H MCHC 33 RDW 16.1 H Plt Count 118 L Lymph % (Auto) 15.1 [place] % (Auto) 7.4 H Eos % (Auto) 1.6 Baso % (Auto) 0.5 Lymph # 0.5 L [place] # 0.3 Eos # 0.1 Baso # 0.0 Seg Neutrophils % 75.4 H Seg Neutrophils # 2.6 PT INR POC ABG pH POC ABG pCO2 POC ABG pO2 POC ABG HCO3 POC ABG Total CO2 POC ABG O2 Sat POC ABG Base Excess VBG pH FiO2 Sodium Potassium Chloride Carbon Dioxide Anion Gap BUN Creatinine Estimated GFR BUN/Creatinine Ratio Glucose POC Glucose 73 96 Lactic Acid Calcium Magnesium Total Bilirubin Direct Bilirubin Indirect Bilirubin AST ALT Alkaline Phosphatase Ammonia Total Creatine Kinase CK-MB (CK-2) CK-MB (CK-2) Rel Index Troponin T Total Protein Albumin Albumin/Globulin Ratio [facility] 11/09/18 11/09/18 11/09/18 06:50 06:50 06:50 WBC RBC Hgb Hct MCV MCH MCHC RDW Plt Count Lymph % (Auto) [place] % (Auto) Eos % (Auto) Baso % (Auto) Lymph # [place] # Eos # Baso # Seg Neutrophils % Seg Neutrophils # PT 15.8 H INR 1.29 H POC ABG pH POC ABG pCO2 POC ABG pO2 POC ABG HCO3 POC ABG Total CO2 POC ABG O2 Sat POC ABG Base Excess VBG pH 7.262 L FiO2 Sodium Potassium Chloride Carbon Dioxide Anion Gap BUN Creatinine Estimated GFR BUN/Creatinine Ratio Glucose POC Glucose Lactic Acid 3.30 H* Calcium Magnesium Total Bilirubin Direct Bilirubin Indirect Bilirubin AST ALT Alkaline Phosphatase Ammonia Total Creatine Kinase CK-MB (CK-2) CK-MB (CK-2) Rel Index Troponin T Total Protein Albumin Albumin/Globulin Ratio [facility] 11/09/18 11/09/18 11/09/18 06:50 06:50 06:50 WBC RBC Hgb Hct MCV MCH MCHC RDW Plt Count Lymph % (Auto) [place] % (Auto) Eos % (Auto) Baso % (Auto) Lymph # [place] # Eos # Baso # Seg Neutrophils % Seg Neutrophils # PT INR POC ABG pH POC ABG pCO2 POC ABG pO2 POC ABG HCO3 POC ABG Total CO2 POC ABG O2 Sat POC ABG Base Excess VBG pH FiO2 Sodium 148 H Potassium 4.2 Chloride 111.5 H Carbon Dioxide 25 Anion Gap 16 BUN 28 H Creatinine 1.6 H Estimated GFR 51 BUN/Creatinine Ratio 18 Glucose 99 POC Glucose Lactic Acid Calcium 8.6 Magnesium 2.00 Total Bilirubin 0.30 Direct Bilirubin < 0.2 Indirect Bilirubin 0.1 AST 19 ALT 18 Alkaline Phosphatase 198 H Ammonia 32.0 Total Creatine Kinase 104 CK-MB (CK-2) 4.1 H CK-MB (CK-2) Rel Index 3.9 Troponin T 0.092 H Total Protein 5.9 L Albumin 2.8 L Albumin/Globulin Ratio 0.9 TSH 5.010 H 11/09/18 11/09/18 07:53 08:03 WBC RBC Hgb Hct MCV MCH MCHC RDW Plt Count Lymph % (Auto) [place] % (Auto) Eos % (Auto) Baso % (Auto) Lymph # [place] # Eos # Baso # Seg Neutrophils % Seg Neutrophils # PT INR POC ABG pH 7.315 L POC ABG pCO2 44.7 POC ABG pO2 72 L POC ABG HCO3 22.8 POC ABG Total CO2 24 POC ABG O2 Sat 93 POC ABG Base Excess -3 VBG pH FiO2 28 Sodium Potassium Chloride Carbon Dioxide Anion Gap BUN Creatinine Estimated GFR BUN/Creatinine Ratio Glucose POC Glucose Lactic Acid 1.90 Calcium Magnesium Total Bilirubin Direct Bilirubin Indirect Bilirubin AST ALT Alkaline Phosphatase Ammonia Total Creatine Kinase CK-MB (CK-2) CK-MB (CK-2) Rel Index Troponin T Total Protein Albumin Albumin/Globulin Ratio TSH - EKG Data -: EKG Interpreted by Me EKG shows normal: sinus rhythm Rate: normal - EKG Data Interpretation: other (intraventricular conduction delay/left bundle-branch block frequent PVCs no evidence of acute ischemia) - Radiology Data Radiology results: pending (CT pending, chest x-ray no acute process) Critical Care Time: Yes Critical care time in (mins) excluding proc time.: 60 Critical care attestation.: If time is entered above; I have spent that time in minutes in the direct care of this critically ill patient, excluding procedure time. ED Disposition Clinical Impression: Acute encephalopathy, Hypoglycemia, Insulin dependent diabetes mellitus, Renal insufficiency Sepsis Qualifiers: Sepsis type: sepsis due to unspecified organism Sepsis acute organ dysfunction status: unspecified Qualified Code(s): A41.9 - Sepsis, unspecified organism Hypothermia Qualifiers: Encounter type: initial encounter Qualified Code(s): T68.XXXA - Hypothermia, initial encounter Disposition: -09 OP ADMIT IP TO THIS HOSP Is pt being admited?: Yes Does the pt Need Aspirin: Yes Condition: Stable Instructions: Diabetes Mellitus Type 2 in Adults (ED) Referrals: PRIMARY CARE, [Primary Care Provider] - 3-5 Days Time of Disposition: 09:44
[2018-11-09 07:32] LABS: Basophils % (Auto) 0.5 % (0.0-1.8); Eosinophils # (Auto) 0.1 K/mm3 (0.0-0.4); Eosinophils % (Auto) 1.6 % (0.0-4.3); Hematocrit 37.2 % (35.5-45.6); Hemoglobin 12.3 gm/dl (11.8-15.2); Lymphocytes # (Auto) 0.5 K/mm3 (1.2-5.4); Lymphocytes % (Auto) 15.1 % (13.4-35.0); Mean Corpuscular HGB Conc 33 % (32-34); Mean Corpuscular Volume 118 fl (84-94); Monocytes # (Auto) 0.3 K/mm3 (0.0-0.8); Monocytes % (Auto) 7.4 % (0.0-7.3); Platelet Count 118 K/mm3 (140-440); Red Blood Count 3.16 M/mm3 (3.65-5.03); Red Cell Distribution Width 16.1 % (13.2-15.2)
[2018-11-09 07:38] LABS: Creatine Kinase MB 4.1 ng/mL (0.0-4.0)
--- NOTE | 2018-11-09 07:38 | XRay Report ---
CHEST 1 VIEW INDICATION / CLINICAL INFORMATION: possible Sepsis. COMPARISON: 11/03/2018 FINDINGS: SUPPORT DEVICES: None. HEART / MEDIASTINUM: Moderately enlarged LUNGS / PLEURA: There is slight venous congestion and minimal interstitial edema. No pneumothorax. ADDITIONAL FINDINGS: No significant additional findings. IMPRESSION: 1. No significant change Signer Name: Prem Healy MD Signed: 11/09/2018 7:34 AM Workstation Name: [id number]
[2018-11-09 07:39] LABS: Alanine Aminotransferase 18 units/L (7-56); Albumin 2.8 g/dL (3.9-5); BUN/Creatinine Ratio 18; Blood Urea Nitrogen 28 mg/dL (9-20); Calcium 8.6 mg/dL (8.4-10.2); Hemolysis Index 17
[2018-11-09 07:45] LABS: INR 1.29 (0.87-1.13)
[2018-11-09 07:48] LABS: Bilirubin,Direct < 0.2 mg/dL (0-0.2)
[2018-11-09] MEDS ORDERED: ATIVAN IV ONE (08:14)
[2018-11-09] MEDS ORDERED: MERREM 1,000 MG in NACL 0.9% 100 ML IV ONE (08:30)
[2018-11-09 08:50] LABS: Bacteria,Urine 2+ /HPF (Negative); Bilirubin,Urine NEG (Negative); Blood,Urine SM (Negative); Color,Urine Yellow (Yellow); Mucus,Urine FEW /HPF; RBC,Urine < 1.0 /HPF (0.0-6.0); Urobilinogen,Urine < 2.0 mg/dL (<2.0)
--- NOTE | 2018-11-09 08:58 | Cat Scan Report ---
CT HEAD WITHOUT CONTRAST INDICATION : Altered mental status. TECHNIQUE: Axial imaging performed from the skull apex through the skull base without the use of con trast. Sagittal and coronal reformatted images. All CT scans at this location are performed using C T dose reduction for ALARA by means of automated exposure control. COMPARISON: 11/03/2018 CT head. 11/06/2018 MR brain. FINDINGS: Parenchyma: Moderate diffuse volume loss and chronic white matter changes are again noted. Chronic c ortical infarct in the right parieto-occipital region measuring 3.5 x 2.5 cm in axial plane is unchan ged. 8 mm chronic right pontine infarct. No evidence for mass, acute hemorrhage or large area of acut e ischemia on noncontrast CT. Ventricles: Ventricles are normal in size and appear symmetric. Bones: No acute osseous abnormality. Sinuses: Sinuses and mastoid air cells are clear. Soft tissues: Soft tissues including the orbits appear normal. IMPRESSION: Volume loss, chronic white matter changes and chronic focal infarcts as described which a re unchanged. No acute intracranial process is identified. Signer Name: Andrea Yanez Jr, MD Signed: 11/09/2018 8:54 AM Workstation Name: [id number]
[2018-11-09] MEDS ORDERED: VANCOMYCIN 2,000 MG in NACL 0.9% 500 ML 500 ML IV ONE (09:30)
[2018-11-09] MEDS ORDERED: BABY ASPIRIN PO ONE (09:45)
[2018-11-09] MEDS ORDERED: SODIUM CHLORIDE FLUSH SYRINGE 10 ML IV PRN (09:57)
[2018-11-09] MEDS ORDERED: ZOFRAN IV PRN (09:57)
[2018-11-09] MEDS ORDERED: NON-FORMULARY (Albuterol Sulfate [Albuterol 0.63% Nebs] 0.63 MG) IH PRN (09:58)
[2018-11-09] MEDS ORDERED: NON-FORMULARY (Carvedilol 6.25 MG) PO SCH (10:00)
[2018-11-09] MEDS ORDERED: VANCOMYCIN PHARMACY TO DOSE IV SCH (10:00)
[2018-11-09] MEDS ORDERED: ROSUVASTATIN CALCIUM 10 MG PO SCH (10:00)
[2018-11-09] MEDS ORDERED: D50W (25GM) Syringe IV PRN ×2 (10:00→19:42)
[2018-11-09] MEDS ORDERED: ISENTRESS 400 MG PO SCH (10:00)
[2018-11-09] MEDS ORDERED: ABACAVIR PO SCH (10:00)
[2018-11-09] MEDS ORDERED: ZIDOVUDINE PO SCH (10:00)
[2018-11-09] MEDS ORDERED: LAMIVUDINE PO SCH (10:00)
[2018-11-09] MEDS ORDERED: TYLENOL PO PRN (10:00)
[2018-11-09] MEDS ORDERED: NON-FORMULARY (Amlodipine Besylate 10 MG) PO SCH (10:00)
[2018-11-09] MEDS ORDERED: ASPIRIN PR ONE ×2 (10:10→10:25)
[2018-11-09] MEDS: SODIUM CHLORIDE FLUSH SYRINGE 10 ML IV SCH ×2 (10:15→19:50)
[2018-11-09] MEDS: BABY ASPIRIN PO SCH (10:19)
[2018-11-09] MEDS: NAMENDA PO SCH (10:30)
[2018-11-09] MEDS: PEPCID PO SCH ×2 (10:30→22:13)
[2018-11-09] MEDS ORDERED: NARCAN 0.4 MG/1 ML IV PRN (10:30)
[2018-11-09] MEDS: HumaLOG SUB-Q SCH ×3 (11:08→21:42)
[2018-11-09] MEDS: COREG PO SCH ×2 (11:31→21:44)
[2018-11-09] MEDS: D50W (25GM) Syringe IV PRN ×3 (12:40→19:50)
[2018-11-09] MEDS ORDERED: D5W 1,000 ML IV SCH (13:00)
[2018-11-09] MEDS: DUONEB *Not for PRN Use IH SCH ×2 (14:15→20:11)
--- NOTE | 2018-11-09 15:08 | History and Physical Report ---
History of Present Illness Date of examination: 11/09/18 Date of admission: 11/09/18 09:57 Chief complaint: AMS History of present illness: Patient is a 73[place]year[place] with PMH of HTN, CHF WITH EF OF 15- 20%, Dementia, CVA, traumatic Subarachnoid hemorrhage Malnutrition, HIV, CKD, recently discharged form the hospital following treatment of hypoglycemia parents to the ED after he was found with AMS and hypoglycemic at the [place], on pramedics arival he was noted ot have a saturation of 82% at the [place]. He was also noted to be diaphoretic, he received a bag of D5 because they had no D50 available. They stated that the patient's diaphoresis improved and that he became more responsive. He however remains non-verbal. Apparently he was found by staff upon their rounds at the senior care. It is unknown the duration of the patient's symptoms. He was transported to the ED and being admitted for further evaluation. Patient was recently admitted with similar condition and at the time work up for CVA, sepsis was negative. ABG on room air did not show hypoxia prior to discharge. ROS: unobtainable due to clinical condition. Past History Past Medical History: COPD, diabetes, hypertension, hyperlipidemia, stroke Social history: no significant social history, other ([place]) Family history: no significant family history Medications and Allergies Allergies Allergy/AdvReac Type Severity Reaction Status Date / Time No Known Allergies Allergy Unverified 03/29/16 00:43 Home Medications Medication Instructions Recorded Confirmed Last Taken Type Aspirin [Aspirin BABY CHEW TAB] 81 mg PO QDAY #30 tab.chew 11/15/17 11/09/18 Unknown Rx Amlodipine Besylate 10 mg PO QDAY 05/21/18 11/09/18 Unknown History Carvedilol 6.25 mg PO BID 05/21/18 11/09/18 Unknown History Isentress 400 mg PO Q12HR 05/21/18 11/09/18 Unknown History Levemir Flextouch 60 unit SUB-Q QHS 05/21/18 11/09/18 Unknown History Rosuvastatin Calcium 10 mg PO DAILY 05/21/18 11/09/18 Unknown History Memantine [Namenda] 5 mg PO QDAY #30 tablet 11/01/18 11/09/18 Unknown Rx Albuterol Sulfate [Albuterol 0.63% 0.63 mg IH TID PRN 30 Days ml 11/07/18 11/09/18 Unknown Rx NEBS] AtorvaSTATin [Lipitor] 20 mg PO QDAY #30 tablet 11/07/18 11/09/18 Unknown Rx Famotidine [Pepcid] 10 mg PO BID #60 tablet 11/07/18 11/09/18 Unknown Rx Ipratropium/Albuterol Sulfate 1 ampul IH Q6HR 30 Days ampul.neb 11/07/18 11/09/18 Unknown Rx [DUONEB *Not for PRN Use*] Tamsulosin [Flomax] 0.4 mg PO QHS #30 capsule 11/07/18 11/09/18 Unknown Rx Zidovudine 300 mg PO DAILY 11/09/18 11/09/18 Unknown History Active Meds: Active Medications Abacavir Sulfate (Ziagen) 300 mg PO QDAY ON LICENSE OF [facility] Acetaminophen (Tylenol) 650 mg PO Q4H PRN PRN Reason: Pain MILD(1-3)/Fever >100.5/[place] Albuterol (Proventil) 2.5 mg IH Q4HRT PRN PRN Reason: Shortness Of Breath Albuterol/Ipratropium (Duoneb *Not For Prn Use*) 1 ampul IH Q6HRT ON LICENSE OF [facility] Last Admin: 11/09/18 14:15 Dose: Not Given Documented by: Amlodipine Besylate (Norvasc) 10 mg PO DAILY ON LICENSE OF [facility] Aspirin (Baby Aspirin) 81 mg PO QDAY ON LICENSE OF [facility] Last Admin: 11/09/18 10:19 Dose: Not Given Documented by: Atorvastatin Calcium (Lipitor) 20 mg PO QHS ON LICENSE OF [facility] Carvedilol (Coreg) 6.25 mg PO BID ON LICENSE OF [facility] Last Admin: 11/09/18 11:31 Dose: Not Given Documented by: Dextrose (D50w (25gm) Syringe) 50 ml IV PRN PRN PRN Reason: Hypoglycemia Last Admin: 11/09/18 12:40 Dose: 50 ml Documented by: Famotidine (Pepcid) 10 mg PO BID ON LICENSE OF [facility] Last Admin: 11/09/18 10:30 Dose: Not Given Documented by: Vancomycin HCl 1,500 mg/ (Sodium Chloride) 530 mls @ 333.333 mls/hr IV Q24HR ON LICENSE OF [facility] Dextrose (D5w) 1,000 mls @ 75 mls/hr IV DIRECT ON LICENSE OF [facility] Last Admin: 11/09/18 13:07 Dose: 75 mls/hr Documented by: Insulin Human Lispro (Humalog) 0 unit SUB-Q ACHS ON LICENSE OF [facility]; Protocol Last Admin: 11/09/18 11:08 Dose: Not Given Documented by: Lamivudine (Epivir) 150 mg PO DAILY ON LICENSE OF [facility] Memantine (Namenda) 5 mg PO QDAY ON LICENSE OF [facility] Last Admin: 11/09/18 10:30 Dose: Not Given Documented by: Naloxone HCl (Narcan 0.4 Mg/1 Ml) 0.1 mg IV Q2MIN PRN PRN Reason: Res Rate </= 8 or 02 SAT < 92% Ondansetron HCl (Zofran) 4 mg IV Q8H PRN PRN Reason: Nausea And Vomiting Raltegravir (Isentress) 400 mg PO BID ON LICENSE OF [facility] Sodium Chloride (Sodium Chloride Flush Syringe 10 Ml) 10 ml IV BID ON LICENSE OF [facility] Last Admin: 11/09/18 10:15 Dose: 10 ml Documented by: Sodium Chloride (Sodium Chloride Flush Syringe 10 Ml) 10 ml IV PRN PRN PRN Reason: LINE FLUSH Tamsulosin HCl (Flomax) 0.4 mg PO QHS ON LICENSE OF [facility] Zidovudine (Retrovir) 300 mg PO QDAY ON LICENSE OF [facility] Review of Systems ROS unobtainable: due to mental status Exam - Constitutional Vitals: Temp Pulse Resp BP Pulse Ox 97.4 F L 104 H 20 114/74 97 11/09/18 13:08 11/09/18 13:08 11/09/18 13:08 11/09/18 13:08 11/09/18 13:08 General appearance: Present: mild distress, disheveled - EENT Eyes: Present: PERRL ENT: hearing intact - Neck Neck: Present: supple, normal ROM - Respiratory Respiratory effort: normal Respiratory: bilateral: diminished - Cardiovascular Rhythm: regular Heart Sounds: Present: S1 & S2. Absent: systolic murmur - Extremities Extremities: no ischemia, pulses intact, No edema, Full ROM Peripheral Pulses: within normal limits - Abdominal General gastrointestinal: Present: soft, non-tender, non-distended, normal bowel sounds - Integumentary Integumentary: Present: clear, warm, dry - Musculoskeletal Musculoskeletal: generalized weakness - Psychiatric Psychiatric: other (UNABLE TO EXAMIN) - Neurologic Neurologic: other (UNRESPONSIVE) - Allied Health Allied health notes reviewed: nursing, social work Results - Labs CBC & Chem 7: 11/09/18 06:50 11/09/18 13:13 Labs: Laboratory Last Values WBC 3.4 K/mm3 (4.5-11.0) L 11/09/18 06:50 RBC 3.16 M/mm3 (3.65-5.03) L 11/09/18 06:50 Hgb 12.3 gm/dl (11.8-15.2) 11/09/18 06:50 Hct 37.2 % (35.5-45.6) 11/09/18 06:50 MCV 118 fl (84-94) H 11/09/18 06:50 MCH 39 pg (28-32) H 11/09/18 06:50 MCHC 33 % (32-34) 11/09/18 06:50 RDW 16.1 % (13.2-15.2) H 11/09/18 06:50 Plt Count 118 K/mm3 (140-440) L 11/09/18 06:50 Lymph % (Auto) 15.1 % (13.4-35.0) 11/09/18 06:50 [place] % (Auto) 7.4 % (0.0-7.3) H 11/09/18 06:50 Eos % (Auto) 1.6 % (0.0-4.3) 11/09/18 06:50 Baso % (Auto) 0.5 % (0.0-1.8) 11/09/18 06:50 Lymph # 0.5 K/mm3 (1.2-5.4) L 11/09/18 06:50 [place] # 0.3 K/mm3 (0.0-0.8) 11/09/18 06:50 Eos # 0.1 K/mm3 (0.0-0.4) 11/09/18 06:50 Baso # 0.0 K/mm3 (0.0-0.1) 11/09/18 06:50 Seg Neutrophils % 75.4 % (40.0-70.0) H 11/09/18 06:50 Seg Neutrophils # 2.6 K/mm3 (1.8-7.7) 11/09/18 06:50 PT 15.8 Sec. (12.2-14.9) H 11/09/18 06:50 INR 1.29 (0.87-1.13) H 11/09/18 06:50 POC ABG pH 7.315 (7.35-7.45) L 11/09/18 08:03 POC ABG pCO2 44.7 (35-45) 11/09/18 08:03 POC ABG pO2 72 (80-105) L 11/09/18 08:03 POC ABG HCO3 22.8 (22-26 mml/L) 11/09/18 08:03 POC ABG Total CO2 24 (23-27mmol/L) 11/09/18 08:03 POC ABG O2 Sat 93 11/09/18 08:03 POC ABG Base Excess -3 ((-2) - (+3)mmol/L) 11/09/18 08:03 VBG pH 7.262 (7.320-7.420) L 11/09/18 06:50 28 % 11/09/18 08:03 Sodium 148 mmol/L (137-145) H 11/09/18 06:50 Potassium 4.2 mmol/L (3.6-5.0) 11/09/18 06:50 Chloride 111.5 mmol/L (98-107) H 11/09/18 06:50 Carbon Dioxide 25 mmol/L (22-30) 11/09/18 06:50 16 mmol/L 11/09/18 06:50 BUN 28 mg/dL (9-20) H 11/09/18 06:50 1.6 mg/dL (0.8-1.5) H 11/09/18 06:50 Estimated GFR 51 ml/min 11/09/18 06:50 18 % 11/09/18 06:50 Glucose 85 mg/dL (75-100) 11/09/18 13:13 POC Glucose 100 (70-105) 11/09/18 13:13 Lactic Acid 1.10 mmol/L (0.7-2.0) 11/09/18 09:35 Calcium 8.6 mg/dL (8.4-10.2) 11/09/18 06:50 Magnesium 2.00 mg/dL (1.7-2.3) 11/09/18 06:50 0.30 mg/dL (0.1-1.2) 11/09/18 06:50 < 0.2 mg/dL (0-0.2) 11/09/18 06:50 0.1 mg/dL 11/09/18 06:50 AST 19 units/L (5-40) 11/09/18 06:50 ALT 18 units/L (7-56) 11/09/18 06:50 198 units/L (35-129) H 11/09/18 06:50 32.0 umol/L (25-60) 11/09/18 06:50 104 units/L (55-170) 11/09/18 06:50 CK-MB (CK-2) 4.1 ng/mL (0.0-4.0) H 11/09/18 06:50 CK-MB (CK-2) Rel Index 3.9 (0-4) 11/09/18 06:50 0.092 ng/mL (0.00-0.029) H 11/09/18 06:50 5.9 g/dL (6.3-8.2) L 11/09/18 06:50 2.8 g/dL (3.9-5) L 11/09/18 06:50 0.9 % 11/09/18 06:50 TSH 5.010 mlU/mL (0.270-4.200) H 11/09/18 06:50 Yellow (Yellow) 11/09/18 08:10 Slightly-cloudy (Clear) 11/09/18 08:10 5.0 (5.0-7.0) 11/09/18 08:10 Ur Specific [place] 1.017 (1.003-1.030) 11/09/18 08:10 100 mg/dl mg/dL (Negative) 11/09/18 08:10 Neg mg/dL (Negative) 11/09/18 08:10 Neg mg/dL (Negative) 11/09/18 08:10 Sm (Negative) 11/09/18 08:10 Neg (Negative) 11/09/18 08:10 Neg (Negative) 11/09/18 08:10 < 2.0 mg/dL (<2.0) 11/09/18 08:10 Ur Leukocyte Esterase Neg (Negative) 11/09/18 08:10 1.0 /HPF (0.0-6.0) 11/09/18 08:10 < 1.0 /HPF (0.0-6.0) 11/09/18 08:10 2+ /HPF (Negative) 11/09/18 08:10 Few /HPF 11/09/18 08:10 Assessment and Plan Assessment and plan: Patient is a 73[place]year[place]old [place] resident with PMH of HTN, CHF WITH EF OF 15- 20%, Dementia, CVA, traumatic Subarachnoid hemorrhage Malnutrition, HIV, CKD, recently discharged form the hospital following treatment of hypoglycemia parents to the ED after he was found with AMS and hypoglycemic at the [place], on p ramedics arival he was noted ot have a saturation of 82% at the AL. He was also noted to be diaphoretic, he received a bag of D5 because they had no D50 available. They stated that the patient's diaphoresis improved and that he became more responsive. He however remains non-verbal. Apparently he was found by staff upon their rounds at the senior care. It is unknown the duration of the patient's symptoms. He was transported to the ED and being admitted for further evaluation. Patient was recently admitted with similar condition and at the time work up for CVA, sepsis was negative. ABG on room air did not show hypoxia prior to discharge. Head CT: Volume loss, chronic white matter changes and chronic focal infarcts as described which are unchanged. No acute intracranial process is identified. CXR: IMPRESSION: No significant change * From prior admission. MR brain without IMPRESSION: 1. No acute infarct or acute intracranial abnormality. 2. 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 Chronic lacunar infarct in the right paracentral [place]. 3. Moderate chronic deep cerebral white matter microvascular angiopathic change. Acute Metabolic Encephalopathy secondary to Hypoglycemia and underlying hypoxia, Type 2 DM uncontrolled now with hypoglycemia. SIRS without organ dysfunction Acute hypoxic respiratory failure HTN Acute on chronic systolic heart failure (congestive heart failure) 15-20% NSTEMI (non-ST elevated myocardial infarction) type 2 HIV (human immunodeficiency virus infection) CKD III Moderate malnutrition Thrombocytopenia Hypernatremia Pancytopenia Atlalectasis Elevated TSH Plan Admit to [facility] unit Start on D5NS at 42 cc and hour Monitor for any sepsis, doubt it, likely SIRS without organ dysfunction Will need oxygen on discharge despite ABG reading, patient with possible hypoxia at hours of sleep Hold long acting insulin Continue abx x 24 hrs while monitoring cultures check free T4 Resume home meds when more awake Aspiration precautions dvt/gi PROPHY Anticipate discharge in am if blood glucose is better Advance Directives: Yes Plan of care discussed with patient/family: Yes
[2018-11-09] MEDS ORDERED: D10W IV SCH (17:15)
[2018-11-09] MEDS ORDERED: KCL IV SCH (17:15)
[2018-11-09] MEDS: FLOMAX PO SCH (21:44)
[2018-11-09] MEDS ORDERED: NON-FORMULARY (Tamsulosin Hcl 0.4 MG) PO SCH (22:00)
[2018-11-09] MEDS: ISENTRESS PO SCH (22:13)
[2018-11-10] MEDS: DUONEB *Not for PRN Use IH SCH ×4 (04:41→20:39)
[2018-11-10 04:44] LABS: Basophils % (Auto) 0.3 % (0.0-1.8); Eosinophils # (Auto) 0.1 K/mm3 (0.0-0.4); Eosinophils % (Auto) 1.2 % (0.0-4.3); Hematocrit 33.6 % (35.5-45.6); Hemoglobin 10.8 gm/dl (11.8-15.2); Lymphocytes # (Auto) 0.7 K/mm3 (1.2-5.4); Lymphocytes % (Auto) 13.6 % (13.4-35.0); Mean Corpuscular HGB Conc 32 % (32-34); Mean Corpuscular Volume 115 fl (84-94); Monocytes # (Auto) 0.5 K/mm3 (0.0-0.8); Platelet Count 104 K/mm3 (140-440); Red Blood Count 2.91 M/mm3 (3.65-5.03); Red Cell Distribution Width 15.8 % (13.2-15.2)
[2018-11-10 05:00] LABS: Calcium 8.1 mg/dL (8.4-10.2)
[2018-11-10] MEDS: KCL IV SCH ×2 (07:21→21:36)
[2018-11-10] MEDS: D10W IV SCH ×2 (07:21→21:36)
[2018-11-10] MEDS: ISENTRESS PO SCH ×3 (09:32→22:44)
[2018-11-10] MEDS: COREG PO SCH ×3 (09:33→22:44)
[2018-11-10] MEDS: NAMENDA PO SCH ×2 (09:38→10:50)
[2018-11-10] MEDS: ZIAGEN PO SCH ×2 (09:38→10:50)
--- NOTE | 2018-11-10 09:39 | Progress Note ---
Assessment and Plan Assessment and plan: Patient is a 73-year-old [place] resident with PMH of HTN, CHF WITH EF OF 15- 20%, Dementia, CVA, traumatic Subarachnoid hemorrhage Malnutrition, HIV, CKD, recently discharged form the hospital following treatment of hypoglycemia parents to the ED after he was found with AMS and hypoglycemic at the AL, on pramedics arival he was noted ot have a saturation of 82% at the AL. He was also noted to be diaphoretic, he received a bag of D5 because they had no D50 available. They stated that the patient's diaphoresis improved and that he became more responsive. He however remains non-verbal. Apparently he was found by staff upon their rounds at the assisted. It is unknown the duration of the patient's symptoms. He was transported to the ED and being admitted for further evaluation. Patient was recently admitted with similar condition and at the time work up for CVA, sepsis was negative. ABG on room air did not show hypoxia prior to discharge. Head CT: Volume loss, chronic white matter changes and chronic focal infarcts as described which are unchanged. No acute intracranial process is identified. CXR: IMPRESSION: No significant change * From prior admission. MR brain without IMPRESSION: 1. No acute infarct or acute intracranial abnormality. 2. 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 Chronic lacunar infarct in the right paracentral [place]. 3. Moderate chronic deep cerebral white matter microvascular angiopathic change. Acute Metabolic Encephalopathy secondary to Hypoglycemia and underlying hypoxia, Type 2 DM uncontrolled now with hypoglycemia. SIRS without organ dysfunction Acute hypoxic respiratory failure HTN Acute on chronic systolic heart failure (congestive heart failure) 15-20% NSTEMI (non-ST elevated myocardial infarction) type 2 HIV (human immunodeficiency virus infection) CKD III Moderate malnutrition Thrombocytopenia Hypernatremia Pancytopenia Atlalectasis Elevated TSH Plan Continue supportive care Continue D10w if, blood glucose remains stable will change to D5 since patient is tolerating diet Discontinue IVF, No acute infection noted Continue anti-retrovirals Patient will be better off large long aciting insulin due to clinical condition and intermittent po intake at the assisted continue oxygen therapy Normal free Te noted Resume home meds when more awake Aspiration precautions dvt/gi PROPHY Anticipate discharge in am if blood glucose is better History Interval history: Patient seen and examined today, remains lethargic but wakes up and tolerates diet. Hospitalist Physical - Constitutional Vitals: Temp Pulse Resp BP Pulse Ox 98.4 F 109 H 18 105/60 96 11/10/18 07:42 11/10/18 09:33 11/10/18 08:06 11/10/18 09:33 11/10/18 08:07 General appearance: Present: no acute distress, mild distress - EENT Eyes: Present: PERRL, EOM intact ENT: hearing intact, clear oral mucosa - Neck Neck: Present: supple - Respiratory Respiratory effort: normal Respiratory: bilateral: diminished - Cardiovascular Rhythm: regular Heart Sounds: Present: S1 & S2. Absent: systolic murmur - Extremities Extremities: no ischemia, pulses intact, pulses symmetrical, No edema - Abdominal General gastrointestinal: soft, non-tender, non-distended, normal bowel sounds - Integumentary Integumentary: Present: clear, warm, dry - Psychiatric Psychiatric: depressed - Neurologic Neurologic: CNII-XII intact - Allied Health Allied health notes reviewed: nursing Results - Labs CBC & Chem 7: 11/10/18 03:59 11/10/18 03:59 Labs: Laboratory Last Values WBC 5.4 K/mm3 (4.5-11.0) 11/10/18 03:59 RBC 2.91 M/mm3 (3.65-5.03) L 11/10/18 03:59 Hgb 10.8 gm/dl (11.8-15.2) L 11/10/18 03:59 Hct 33.6 % (35.5-45.6) L 11/10/18 03:59 MCV 115 fl (84-94) H 11/10/18 03:59 MCH 37 pg (28-32) H 11/10/18 03:59 MCHC 32 % (32-34) 11/10/18 03:59 RDW 15.8 % (13.2-15.2) H 11/10/18 03:59 Plt Count 104 K/mm3 (140-440) L 11/10/18 03:59 Lymph % (Auto) 13.6 % (13.4-35.0) 11/10/18 03:59 [place] % (Auto) 10.0 % (0.0-7.3) H 11/10/18 03:59 Eos % (Auto) 1.2 % (0.0-4.3) 11/10/18 03:59 Baso % (Auto) 0.3 % (0.0-1.8) 11/10/18 03:59 Lymph # 0.7 K/mm3 (1.2-5.4) L 11/10/18 03:59 [place] # 0.5 K/mm3 (0.0-0.8) 11/10/18 03:59 Eos # 0.1 K/mm3 (0.0-0.4) 11/10/18 03:59 Baso # 0.0 K/mm3 (0.0-0.1) 11/10/18 03:59 Seg Neutrophils % 74.9 % (40.0-70.0) H 11/10/18 03:59 Seg Neutrophils # 4.0 K/mm3 (1.8-7.7) 11/10/18 03:59 PT 15.8 Sec. (12.2-14.9) H 11/09/18 06:50 INR 1.29 (0.87-1.13) H 11/09/18 06:50 POC ABG pH 7.315 (7.35-7.45) L 11/09/18 08:03 POC ABG pCO2 44.7 (35-45) 11/09/18 08:03 POC ABG pO2 72 (80-105) L 11/09/18 08:03 POC ABG HCO3 22.8 (22-26 mml/L) 11/09/18 08:03 POC ABG Total CO2 24 (23-27mmol/L) 11/09/18 08:03 POC ABG O2 Sat 93 11/09/18 08:03 POC ABG Base Excess -3 ((-2) - (+3)mmol/L) 11/09/18 08:03 VBG pH 7.262 (7.320-7.420) L 11/09/18 06:50 28 % 11/09/18 08:03 Sodium 146 mmol/L (137-145) H 11/10/18 03:59 Potassium 3.8 mmol/L (3.6-5.0) 11/10/18 03:59 Chloride 112.1 mmol/L (98-107) H 11/10/18 03:59 Carbon Dioxide 24 mmol/L (22-30) 11/10/18 03:59 14 mmol/L 11/10/18 03:59 BUN 22 mg/dL (9-20) H 11/10/18 03:59 1.5 mg/dL (0.8-1.5) 11/10/18 03:59 Estimated GFR 55 ml/min 11/10/18 03:59 15 % 11/10/18 03:59 Glucose 87 mg/dL (75-100) 11/10/18 03:59 POC Glucose 142 (70-105) H 11/10/18 07:56 Lactic Acid 1.10 mmol/L (0.7-2.0) 11/09/18 09:35 Calcium 8.1 mg/dL (8.4-10.2) L 11/10/18 03:59 Magnesium 2.00 mg/dL (1.7-2.3) 11/09/18 06:50 0.30 mg/dL (0.1-1.2) 11/09/18 06:50 < 0.2 mg/dL (0-0.2) 11/09/18 06:50 0.1 mg/dL 11/09/18 06:50 AST 19 units/L (5-40) 11/09/18 06:50 ALT 18 units/L (7-56) 11/09/18 06:50 198 units/L (35-129) H 11/09/18 06:50 32.0 umol/L (25-60) 11/09/18 06:50 104 units/L (55-170) 11/09/18 06:50 CK-MB (CK-2) 4.1 ng/mL (0.0-4.0) H 11/09/18 06:50 CK-MB (CK-2) Rel Index 3.9 (0-4) 11/09/18 06:50 0.092 ng/mL (0.00-0.029) H 11/09/18 06:50 5.9 g/dL (6.3-8.2) L 11/09/18 06:50 2.8 g/dL (3.9-5) L 11/09/18 06:50 0.9 % 11/09/18 06:50 TSH 5.010 mlU/mL (0.270-4.200) H 11/09/18 06:50 Free T4 1.38 ng/dL (0.76-1.46) 11/09/18 16:27 Yellow (Yellow) 11/09/18 08:10 Slightly-cloudy (Clear) 11/09/18 08:10 5.0 (5.0-7.0) 11/09/18 08:10 Ur Specific [place] 1.017 (1.003-1.030) 11/09/18 08:10 100 mg/dl mg/dL (Negative) 11/09/18 08:10 Neg mg/dL (Negative) 11/09/18 08:10 Neg mg/dL (Negative) 11/09/18 08:10 Sm (Negative) 11/09/18 08:10 Neg (Negative) 11/09/18 08:10 Neg (Negative) 11/09/18 08:10 < 2.0 mg/dL (<2.0) 11/09/18 08:10 Ur Leukocyte Esterase Neg (Negative) 11/09/18 08:10 1.0 /HPF (0.0-6.0) 11/09/18 08:10 < 1.0 /HPF (0.0-6.0) 11/09/18 08:10 2+ /HPF (Negative) 11/09/18 08:10 Few /HPF 11/09/18 08:10 Active Medications - Current Medications Current Medications: Generic Name Dose Route Start Last Admin Trade Name Freq PRN Reason Stop Dose Admin Abacavir Sulfate 300 mg 11/09/18 14:00 11/10/18 09:38 Ziagen PO 300 mg QDAY KEN Administration Acetaminophen 650 mg 11/09/18 10:00 Tylenol PO Q4H PRN Pain MILD(1-3)/Fever >100.5/[place]MONS Albuterol 2.5 mg 11/09/18 10:38 Proventil IH Q4HRT PRN Shortness Of Breath Albuterol/Ipratropium 1 ampul 11/09/18 14:00 11/10/18 08:05 Duoneb *Not For Prn Use* IH 1 ampul Q6HRT KEN Administration Amlodipine Besylate 10 mg 11/10/18 10:00 Norvasc PO DAILY KEN Aspirin 81 mg 11/09/18 10:00 11/09/18 10:19 Baby Aspirin PO Not Given QDAY KEN Atorvastatin Calcium 20 mg 11/09/18 22:00 11/09/18 21:43 Lipitor PO Not Given QHS KEN Carvedilol 6.25 mg 11/09/18 12:00 11/10/18 09:33 Coreg PO 6.25 mg BID KEN Administration Dextrose 50 ml 11/09/18 10:00 11/09/18 19:50 D50w (25gm) Syringe IV 25 ml PRN PRN Administration Hypoglycemia Dextrose 50 ml 11/09/18 19:42 D50w (25gm) Syringe IV PRN PRN Hypoglycemia Famotidine 10 mg 11/09/18 11:00 11/09/18 22:13 Pepcid PO Not Given BID [facility] Vancomycin HCl 1,500 mg/ 530 mls @ 333.333 mls/hr 11/10/18 10:00 Sodium Chloride IV Q24HR [facility] Potassium Chloride 10 meq/ 1,005 mls @ 100 mls/hr 11/09/18 20:45 11/10/18 07:21 Dextrose IV 100 mls/hr DIRECT KEN Administration Insulin Human Lispro 0 unit 11/09/18 11:30 11/09/18 21:42 Humalog SUB-Q Not Given ACHS [facility] Protocol Lamivudine 150 mg 11/09/18 14:00 Epivir PO DAILY [facility] Memantine 5 mg 11/09/18 11:00 11/10/18 09:38 Namenda PO 5 mg QDAY KEN Administration Naloxone HCl 0.1 mg 11/09/18 10:30 Narcan 0.4 Mg/1 Ml IV Q2MIN PRN Res Rate </= 8 or 02 SAT < 92% Ondansetron HCl 4 mg 11/09/18 09:57 Zofran IV Q8H PRN Nausea And Vomiting Raltegravir 400 mg 11/09/18 14:00 11/10/18 09:32 Isentress PO 400 mg BID KEN Administration Sodium Chloride 10 ml 11/09/18 10:00 11/09/18 19:50 Sodium Chloride Flush Syringe 10 Ml IV 10 ml BID KEN Administration Sodium Chloride 10 ml 11/09/18 09:57 Sodium Chloride Flush Syringe 10 Ml IV PRN PRN LINE FLUSH Tamsulosin HCl 0.4 mg 11/09/18 22:00 11/09/18 21:44 Flomax PO Not Given QHS KEN Zidovudine 300 mg 11/09/18 14:00 Retrovir PO QDAY KEN
[2018-11-10] MEDS: EPIVIR PO SCH ×2 (09:40→10:50)
[2018-11-10] MEDS: PEPCID PO SCH ×3 (09:41→22:44)
[2018-11-10] MEDS: VANCOMYCIN 1,500 MG in NACL 0.9% 500 ML 500 ML IV SCH (09:44)
[2018-11-10] MEDS: BABY ASPIRIN PO SCH ×2 (09:44→10:50)
[2018-11-10] MEDS: RETROVIR PO SCH ×2 (09:54→10:50)
[2018-11-10] MEDS: SODIUM CHLORIDE FLUSH SYRINGE 10 ML IV SCH ×2 (10:00→21:06)
[2018-11-10] MEDS: NORVASC PO SCH (10:03)
[2018-11-10] MEDS: PROVENTIL IH PRN ×2 (14:20→16:38)
[2018-11-10] MEDS: HumaLOG SUB-Q SCH ×2 (18:40→21:45)
[2018-11-10] MEDS: FLOMAX PO SCH (22:44)
[2018-11-11] MEDS: ISENTRESS PO SCH ×2 (00:55→10:51)
[2018-11-11] MEDS: DUONEB *Not for PRN Use IH SCH ×4 (03:35→20:00)
[2018-11-11] MEDS: HumaLOG SUB-Q SCH ×3 (07:54→12:06)
[2018-11-11] MEDS: VANCOMYCIN 1,500 MG in NACL 0.9% 500 ML 500 ML IV SCH (09:04)
--- NOTE | 2018-11-11 09:43 | Progress Note ---
Assessment and Plan Assessment and plan: Patient is a 73-year-old male [place] resident with PMH of HTN, CHF WITH EF OF 15- 20%, Dementia, CVA, traumatic Subarachnoid hemorrhage Malnutrition, HIV, CKD, recently discharged form the hospital following treatment of hypoglycemia parents to the ED after he was found with AMS and hypoglycemic at the [facility], on pramedics arival he was noted ot have a saturation of 82% at the [facility]. He was also noted to be diaphoretic, he received a bag of D5 because they had no D50 available. They stated that the patient's diaphoresis improved and that he became more responsive. He however remains non-verbal. Apparently he was found by staff upon their rounds at the care home. It is unknown the duration of the patient's symptoms. He was transported to the ED and being admitted for further evaluation. Patient was recently admitted with similar condition and at the time work up for CVA, sepsis was negative. ABG on room air did not show hypoxia prior to discharge. Head CT: Volume loss, chronic white matter changes and chronic focal infarcts as described which are unchanged. No acute intracranial process is identified. CXR: IMPRESSION: No significant change * From prior admission. MR brain without IMPRESSION: 1. No acute infarct or acute intracranial abnormality. 2. 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 Chronic lacunar infarct in the right paracentral [place]ha. 3. Moderate chronic deep cerebral white matter microvascular angiopathic change. Acute Metabolic Encephalopathy secondary to Hypoglycemia and underlying hypoxia, Type 2 DM uncontrolled now with hypoglycemia. SIRS without organ dysfunction Acute hypoxic respiratory failure HTN Acute on chronic systolic heart failure (congestive heart failure) 15-20% NSTEMI (non-ST elevated myocardial infarction) type 2 HIV (human immunodeficiency virus infection) CKD III Moderate malnutrition Thrombocytopenia Hypernatremia Pancytopenia Atlalectasis Elevated TSH Plan Continue supportive care Discontinue IVF Now tolerating diet and Blood glucose improved Anticipate discharge in am Continue anti-retrovirals Patient will be better off large long aciting insulin due to clinical condition and intermittent po intake at the care home continue oxygen therapy Normal free T4 noted Resume home meds when more awake Aspiration precautions dvt/gi PROPHY Anticipate discharge in am if blood glucose is better History Interval history: Patient seen and examined today, much improved today. still with intermittent change in mental status, thinks he leaves at [facility] Physical - Physical exam Narrative exam: General appearance: Present: no acute distress, mild distress - EENT Eyes: Present: PERRL, EOM intact ENT: hearing intact, clear oral mucosa - Neck Neck: Present: supple - Respiratory Respiratory effort: normal Respiratory: bilateral: diminished - Cardiovascular Rhythm: regular Heart Sounds: Present: S1 & S2. Absent: systolic murmur - Extremities Extremities: no ischemia, pulses intact, pulses symmetrical, No edema - Abdominal General gastrointestinal: soft, non-tender, non-distended, normal bowel sounds - Integumentary Integumentary: Present: clear, warm, dry - Psychiatric Psychiatric: depressed - Neurologic Neurologic: CNII-XII intact - Allied Health Allied health notes reviewed: nursing - Constitutional Vitals: Temp Pulse Resp BP Pulse Ox 97.8 F 100 H 16 130/74 98 11/11/18 07:17 11/11/18 08:00 11/11/18 08:00 11/11/18 07:17 11/11/18 09:25 General appearance: Present: no acute distress Results - Labs CBC & Chem 7: 11/10/18 03:59 11/10/18 03:59 Labs: Laboratory Last Values WBC 5.4 K/mm3 (4.5-11.0) 11/10/18 03:59 RBC 2.91 M/mm3 (3.65-5.03) L 11/10/18 03:59 Hgb 10.8 gm/dl (11.8-15.2) L 11/10/18 03:59 Hct 33.6 % (35.5-45.6) L 11/10/18 03:59 MCV 115 fl (84-94) H 11/10/18 03:59 MCH 37 pg (28-32) H 11/10/18 03:59 MCHC 32 % (32-34) 11/10/18 03:59 RDW 15.8 % (13.2-15.2) H 11/10/18 03:59 Plt Count 104 K/mm3 (140-440) L 11/10/18 03:59 Lymph % (Auto) 13.6 % (13.4-35.0) 11/10/18 03:59 Holmes % (Auto) 10.0 % (0.0-7.3) H 11/10/18 03:59 Eos % (Auto) 1.2 % (0.0-4.3) 11/10/18 03:59 Baso % (Auto) 0.3 % (0.0-1.8) 11/10/18 03:59 Lymph # 0.7 K/mm3 (1.2-5.4) L 11/10/18 03:59 Holmes # 0.5 K/mm3 (0.0-0.8) 11/10/18 03:59 Eos # 0.1 K/mm3 (0.0-0.4) 11/10/18 03:59 Baso # 0.0 K/mm3 (0.0-0.1) 11/10/18 03:59 Seg Neutrophils % 74.9 % (40.0-70.0) H 11/10/18 03:59 Seg Neutrophils # 4.0 K/mm3 (1.8-7.7) 11/10/18 03:59 PT 15.8 Sec. (12.2-14.9) H 11/09/18 06:50 INR 1.29 (0.87-1.13) H 11/09/18 06:50 POC ABG pH 7.443 (7.35-7.45) 11/10/18 16:38 POC ABG pCO2 44.7 (35-45) 11/09/18 08:03 POC ABG pO2 91 (80-105) 11/10/18 16:38 POC ABG HCO3 20.1 (22-26 mml/L) 11/10/18 16:38 POC ABG Total CO2 21 (23-27mmol/L) 11/10/18 16:38 POC ABG O2 Sat 97 11/10/18 16:38 POC ABG Base Excess -4 ((-2) - (+3)mmol/L) 11/10/18 16:38 VBG pH 7.262 (7.320-7.420) L 11/09/18 06:50 28 % 11/10/18 16:38 Sodium 146 mmol/L (137-145) H 11/10/18 03:59 Potassium 3.8 mmol/L (3.6-5.0) 11/10/18 03:59 Chloride 112.1 mmol/L (98-107) H 11/10/18 03:59 Carbon Dioxide 24 mmol/L (22-30) 11/10/18 03:59 14 mmol/L 11/10/18 03:59 BUN 22 mg/dL (9-20) H 11/10/18 03:59 1.5 mg/dL (0.8-1.5) 11/10/18 03:59 Estimated GFR 55 ml/min 11/10/18 03:59 15 % 11/10/18 03:59 Glucose 87 mg/dL (75-100) 11/10/18 03:59 POC Glucose 310 (70-105) H 11/11/18 07:23 Lactic Acid 1.10 mmol/L (0.7-2.0) 11/09/18 09:35 Calcium 8.1 mg/dL (8.4-10.2) L 11/10/18 03:59 Magnesium 2.00 mg/dL (1.7-2.3) 11/09/18 06:50 0.30 mg/dL (0.1-1.2) 11/09/18 06:50 < 0.2 mg/dL (0-0.2) 11/09/18 06:50 0.1 mg/dL 11/09/18 06:50 AST 19 units/L (5-40) 11/09/18 06:50 ALT 18 units/L (7-56) 11/09/18 06:50 198 units/L (35-129) H 11/09/18 06:50 32.0 umol/L (25-60) 11/09/18 06:50 104 units/L (55-170) 11/09/18 06:50 CK-MB (CK-2) 4.1 ng/mL (0.0-4.0) H 11/09/18 06:50 CK-MB (CK-2) Rel Index 3.9 (0-4) 11/09/18 06:50 0.092 ng/mL (0.00-0.029) H 11/09/18 06:50 5.9 g/dL (6.3-8.2) L 11/09/18 06:50 2.8 g/dL (3.9-5) L 11/09/18 06:50 0.9 % 11/09/18 06:50 TSH 5.010 mlU/mL (0.270-4.200) H 11/09/18 06:50 Free T4 1.38 ng/dL (0.76-1.46) 11/09/18 16:27 Yellow (Yellow) 11/09/18 08:10 Slightly-cloudy (Clear) 11/09/18 08:10 5.0 (5.0-7.0) 11/09/18 08:10 Ur Specific [place] 1.017 (1.003-1.030) 11/09/18 08:10 100 mg/dl mg/dL (Negative) 11/09/18 08:10 Neg mg/dL (Negative) 11/09/18 08:10 Neg mg/dL (Negative) 11/09/18 08:10 Sm (Negative) 11/09/18 08:10 Neg (Negative) 11/09/18 08:10 Neg (Negative) 11/09/18 08:10 < 2.0 mg/dL (<2.0) 11/09/18 08:10 Ur Leukocyte Esterase Neg (Negative) 11/09/18 08:10 1.0 /HPF (0.0-6.0) 11/09/18 08:10 < 1.0 /HPF (0.0-6.0) 11/09/18 08:10 2+ /HPF (Negative) 11/09/18 08:10 Few /HPF 11/09/18 08:10 Active Medications - Current Medications Current Medications: Generic Name Dose Route Start Last Admin Trade Name Freq PRN Reason Stop Dose Admin Abacavir Sulfate 300 mg 11/09/18 14:00 11/10/18 10:50 Ziagen PO Not Given QDAY KEN Acetaminophen 650 mg 11/09/18 10:00 Tylenol PO Q4H PRN Pain MILD(1-3)/Fever >100.5/SIMMONS Albuterol 2.5 mg 11/09/18 10:38 11/10/18 16:38 Proventil IH 2.5 mg Q4HRT PRN Administration Shortness Of Breath Albuterol/Ipratropium 1 ampul 11/09/18 14:00 11/11/18 08:58 Duoneb *Not For Prn Use* IH 1 ampul Q6HRT KEN Administration Amlodipine Besylate 10 mg 11/10/18 10:00 11/10/18 10:03 Norvasc PO 10 mg DAILY [facility] Administration Aspirin 81 mg 11/09/18 10:00 11/10/18 10:50 Baby Aspirin PO Not Given QDAY [facility] Atorvastatin Calcium 20 mg 11/09/18 22:00 11/10/18 22:44 Lipitor PO Not Given QHS [facility] Carvedilol 6.25 mg 11/09/18 12:00 11/10/18 22:44 Coreg PO Not Given BID [facility] Dextrose 50 ml 11/09/18 19:42 D50w (25gm) Syringe IV PRN PRN Hypoglycemia Famotidine 10 mg 11/09/18 11:00 11/10/18 22:44 Pepcid PO Not Given BID [facility] Vancomycin HCl 1,500 mg/ 530 mls @ 333.333 mls/hr 11/10/18 10:00 11/11/18 09:04 Sodium Chloride IV 333.333 mls/hr Q24HR [facility] Administration Insulin Human Lispro 0 unit 11/09/18 11:30 11/11/18 09:03 Humalog SUB-Q 3 unit [facility] Administration Protocol Lamivudine 150 mg 11/09/18 14:00 11/10/18 10:50 Epivir PO Not Given DAILY [facility] Memantine 5 mg 11/09/18 11:00 11/10/18 10:50 Namenda PO Not Given QDAY [facility] Naloxone HCl 0.1 mg 11/09/18 10:30 Narcan 0.4 Mg/1 Ml IV Q2MIN PRN Res Rate </= 8 or 02 SAT < 92% Ondansetron HCl 4 mg 11/09/18 09:57 Zofran IV Q8H PRN Nausea And Vomiting Raltegravir 400 mg 11/09/18 14:00 11/10/18 22:44 Isentress PO Not Given BID [facility] Sodium Chloride 10 ml 11/09/18 10:00 11/10/18 21:06 Sodium Chloride Flush Syringe 10 Ml IV 10 ml BID [facility] Administration Sodium Chloride 10 ml 11/09/18 09:57 Sodium Chloride Flush Syringe 10 Ml IV PRN PRN LINE FLUSH Tamsulosin HCl 0.4 mg 11/09/18 22:00 11/10/18 22:44 Flomax PO Not Given QHS [facility] Zidovudine 300 mg 11/09/18 14:00 11/10/18 10:50 Retrovir PO Not Given QDAY KEN
[2018-11-11] MEDS: PEPCID PO SCH ×2 (10:48→23:44)
[2018-11-11] MEDS: NAMENDA PO SCH (10:48)
[2018-11-11] MEDS: BABY ASPIRIN PO SCH (10:48)
[2018-11-11] MEDS: ZIAGEN PO SCH (10:49)
[2018-11-11] MEDS: EPIVIR PO SCH (10:52)
[2018-11-11] MEDS: RETROVIR PO SCH (10:52)
[2018-11-11] MEDS: COREG PO SCH ×2 (10:53→23:45)
[2018-11-11] MEDS: NORVASC PO SCH (10:53)
[2018-11-11] MEDS: SODIUM CHLORIDE FLUSH SYRINGE 10 ML IV SCH ×2 (10:54→23:55)
[2018-11-11] MEDS: FLOMAX PO SCH (23:45)
[2018-11-12] MEDS: HumaLOG SUB-Q SCH ×3 (00:05→12:13)
[2018-11-12] MEDS: DUONEB *Not for PRN Use IH SCH ×3 (03:18→14:03)
[2018-11-12 08:20] VITALS: BP 114/73
[2018-11-12] MEDS: EPIVIR PO SCH (10:00)
[2018-11-12] MEDS: RETROVIR PO SCH (10:00)
[2018-11-12] MEDS: ISENTRESS PO SCH (10:00)
[2018-11-12] MEDS: BABY ASPIRIN PO SCH (10:01)
[2018-11-12] MEDS: ZIAGEN PO SCH (10:01)
[2018-11-12] MEDS: COREG PO SCH (10:01)
[2018-11-12] MEDS: NAMENDA PO SCH (10:02)
[2018-11-12] MEDS: SODIUM CHLORIDE FLUSH SYRINGE 10 ML IV SCH (10:02)
[2018-11-12] MEDS: PEPCID PO SCH (10:02)
[2018-11-12] MEDS: NORVASC PO SCH (10:02)
[2018-11-12] MEDS: VANCOMYCIN 1,500 MG in NACL 0.9% 500 ML 500 ML IV SCH (10:30)
--- NOTE | 2018-11-12 10:34 | Discharge Summary ---
Providers - Providers Date of Admission: 11/09/18 09:57 Attending physician: ERICK DUBON MD Primary care physician: DRUG ABUSE COUNSELOR Hospitalization Reason for admission: ams Condition: Stable Hospital course: Patient is a 73-year-old male [place] resident with PMH of HTN, CHF WITH EF OF 15- 20%, Dementia, CVA, traumatic Subarachnoid hemorrhage Malnutrition, HIV, CKD, recently discharged form the hospital following treatment of hypoglycemia parents to the ED after he was found with AMS and hypoglycemic at the [place], on pramedics arival he was noted ot have a saturation of 82% at the [place]. He was also noted to be diaphoretic, he received a bag of D5 because they had no D50 available. They stated that the patient's diaphoresis improved and that he became more responsive. He however remains non-verbal. Apparently he was found by staff upon their rounds at the [facility]. It is unknown the duration of the patient's symptoms. He was transported to the ED and being admitted for further evaluation. Patient was recently admitted with similar condition and at the time work up for CVA, sepsis was negative. ABG on room air did not show hypoxia prior to discharge. Head CT: Volume loss, chronic white matter changes and chronic focal infarcts as described which are unchanged. No acute intracranial process is identified. CXR: IMPRESSION: No significant change * From prior admission. MR brain without IMPRESSION: 1. No acute infarct or acute intracranial abnormality. 2. 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 Chronic lacunar infarct in the right paracentral [place]. 3. Moderate chronic deep cerebral white matter microvascular angiopathic change. Acute Metabolic Encephalopathy secondary to Hypoglycemia and underlying hypoxia, Type 2 DM uncontrolled now with hypoglycemia. SIRS without organ dysfunction Acute hypoxic respiratory failure HTN Acute on chronic systolic heart failure (congestive heart failure) 15-20% NSTEMI (non-ST elevated myocardial infarction) type 2 HIV (human immunodeficiency virus infection) CKD III Moderate malnutrition Thrombocytopenia Hypernatremia Pancytopenia Atlalectasis Elevated TSH Plan Continue supportive care Discontinue IVF Now tolerating diet and Blood glucose improved Anticipate discharge in am Continue anti-retrovirals Patient will be better off large long aciting insulin due to clinical condition and intermittent po intake at the detention continue oxygen therapy Normal free T4 noted Resume home meds when more awake Aspiration precautions dvt/gi PROPHY Anticipate discharge in am if blood glucose is better Disposition: [id number]/[id number] Time spent for discharge: 35 mins Exam - Constitutional Vitals: Temp Pulse Resp BP Pulse Ox 97.5 F L 79 20 114/73 99 11/12/18 07:38 11/12/18 07:38 11/12/18 07:38 11/12/18 07:38 11/12/18 07:38 Plan Activity: advance as tolerated, fall precautions Diet: diabetic Special Instructions: record daily BP diary, record blood sugar diary Follow up with: PRIMARY MD CARLA [Primary Care Provider] - 3-5 Days CHRISTINE LEO MD [Staff Physician] - 7 Days MARIA E THOMAS MD [Staff Physician] - 7 Days KATLIN LEDEZMA MD [Staff Physician] - 7 Days Prescriptions: Insulin Regular, Human [HumuLIN R] 0 unit SQ AC #1 vial
[2018-11-13] MEDS ORDERED: VANCOMYCIN/NS 1 GM/250 ML 1 GM/250 ML BAG IV SCH (14:00)
== END 2018-11-12 13:20 | DRG 280 ==
LOC: ED 06:27 → OBSVTOIN 09:57 → 2B-ACE 09:57
PROVIDERS: ADMIT Internal Medicine; ATTEND Internal Medicine
PROC: 4A033R1 Measurement of Arterial Saturation, Peripheral, Percutaneous Approach (ICD-10-PCS; principal; 2018-11-10)
DX: I13.0 Hypertensive heart and chronic kidney disease with heart failure and stage 1 through stage 4 chronic kidney disease, or unspecified chronic kidney disease (principal); J96.01 Acute respiratory failure with hypoxia; I21.A1 Myocardial infarction type 2; G93.41 Metabolic encephalopathy; I50.23 Acute on chronic systolic (congestive) heart failure; E44.0 Moderate protein-calorie malnutrition; E87.0 Hyperosmolality and hypernatremia; J98.11 Atelectasis; E11.22 Type 2 diabetes mellitus with diabetic chronic kidney disease; R68.0 Hypothermia, not associated with low environmental temperature; Z21 Asymptomatic human immunodeficiency virus [HIV] infection status; E11.649 Type 2 diabetes mellitus with hypoglycemia without coma; N18.3 Chronic kidney disease, stage 3 (moderate); Z68.27 Body mass index [BMI] 27.0-27.9, adult; Z79.82 Long term (current) use of aspirin; Z79.899 Other long term (current) drug therapy; Z79.51 Long term (current) use of inhaled steroids; Z79.84 Long term (current) use of oral hypoglycemic drugs; Z86.73 Personal history of transient ischemic attack (TIA), and cerebral infarction without residual deficits
CPT/HCPCS: 36415; 36600; 70450; 71045; 80048; 80076; 80202; 81001; 82140; 82550; 82553; 82803; 82805; 82947; 82962; 83735; 84439; 84443; 84484; 85025; 85610; 87040; 87086; 93005; 93010; 94640; 94644; 94760; G0378; A9270-GY; J1815; J2060; J2185; J3370; J3480; J7030; J7040; J7070

== ENCOUNTER 2018-11-29 12:36 | Inpatient (IN) | payer MEDICARE ==
--- NOTE | 2018-11-29 13:09 | Emergency Department Report ---
ED Altered Mental Status HPI - General Chief Complaint: Altered Mental Status Stated Complaint: AMS Time Seen by Provider: 11/29/18 12:50 Source: EMS Mode of arrival: Stretcher Limitations: Altered Mental Status - History of Present Illness Initial Comments: Patient is a 73-year-old male that presents emergency room for unresponsiveness and altered mental status. Patient came in from a local custodial. Patient has a history of HIV. EMS states the patient was like this for an unknown amount of time. EMS states his staff is not sure when he went unresponsive. EMS states the staff did not report a fever. MD Complaint: altered mental status, decreased responsiveness -: Sudden Severity: Unable to Determine Consistency of Symptoms: constant - Related Data Home Medications Medication Instructions Recorded Confirmed Last Taken Amlodipine Besylate 10 mg PO QDAY 05/21/18 11/29/18 Unknown Carvedilol 6.25 mg PO BID 05/21/18 11/29/18 Unknown Isentress 400 mg PO Q12HR 05/21/18 11/29/18 Unknown Rosuvastatin Calcium 10 mg PO DAILY 05/21/18 11/29/18 Unknown Zidovudine 300 mg PO DAILY 11/09/18 11/29/18 Unknown Previous Rx's Medication Instructions Recorded Last Taken Type Aspirin [Aspirin BABY CHEW TAB] 81 mg PO QDAY #30 tab.chew 11/15/17 Unknown Rx Memantine [Namenda] 5 mg PO QDAY #30 tablet 11/01/18 Unknown Rx Albuterol Sulfate [Albuterol 0.63% 0.63 mg IH TID PRN 30 Days ml 11/07/18 Unknown Rx NEBS] AtorvaSTATin [Lipitor] 20 mg PO QDAY #30 tablet 11/07/18 Unknown Rx Famotidine [Pepcid] 10 mg PO BID #60 tablet 11/07/18 Unknown Rx Ipratropium/Albuterol Sulfate 1 ampul IH Q6HR 30 Days ampul.neb 11/07/18 Unknown Rx [DUONEB *Not for PRN Use*] Tamsulosin [Flomax] 0.4 mg PO QHS #30 capsule 11/07/18 Unknown Rx Insulin Regular, Human [HumuLIN R] 0 unit SQ AC #1 vial 11/12/18 Unknown Rx Allergies Allergy/AdvReac Type Severity Reaction Status Date / Time No Known Allergies Allergy Unverified 03/29/16 00:43 ED Review of Systems ROS: Stated complaint: AMS Other details as noted in HPI Comment: Unobtainable due to pts medical conditions ED Past Medical Hx - Past Medical History Previous Medical History?: Yes Hx Hypertension: Yes Hx CVA: Yes (x2) Hx Diabetes: Yes Hx COPD: Yes Hx HIV: Yes Additional medical history: prostate cancer, hyperlipidemia, emphysema - Surgical History Past Surgical History?: Yes Additional Surgical History: vincenzo hip surgery - Family History Family history: no significant - Social History Smoking Status: Unknown if ever smoked Substance Use Type: None - Medications Home Medications: Home Medications Medication Instructions Recorded Confirmed Last Taken Type Aspirin [Aspirin BABY CHEW TAB] 81 mg PO QDAY #30 tab.chew 11/15/17 11/29/18 Unknown Rx Amlodipine Besylate 10 mg PO QDAY 05/21/18 11/29/18 Unknown History Carvedilol 6.25 mg PO BID 05/21/18 11/29/18 Unknown History Isentress 400 mg PO Q12HR 05/21/18 11/29/18 Unknown History Rosuvastatin Calcium 10 mg PO DAILY 05/21/18 11/29/18 Unknown History Memantine [Namenda] 5 mg PO QDAY #30 tablet 11/01/18 11/29/18 Unknown Rx Albuterol Sulfate [Albuterol 0.63% 0.63 mg IH TID PRN 30 Days ml 11/07/18 11/29/18 Unknown Rx NEBS] AtorvaSTATin [Lipitor] 20 mg PO QDAY #30 tablet 11/07/18 11/29/18 Unknown Rx Famotidine [Pepcid] 10 mg PO BID #60 tablet 11/07/18 11/29/18 Unknown Rx Ipratropium/Albuterol Sulfate 1 ampul IH Q6HR 30 Days ampul.neb 11/07/18 11/29/18 Unknown Rx [DUONEB *Not for PRN Use*] Tamsulosin [Flomax] 0.4 mg PO QHS #30 capsule 11/07/18 11/29/18 Unknown Rx Zidovudine 300 mg PO DAILY 11/09/18 11/29/18 Unknown History Insulin Regular, Human [HumuLIN R] 0 unit SQ AC #1 vial 11/12/18 11/29/18 Unknown Rx ED Physical Exam - General Limitations: Altered Mental Status, Physical Limitation General appearance: in no apparent distress, obtunded - Head Head exam: Present: atraumatic, normocephalic - Eye Eye exam: Present: normal appearance, PERRL Pupils: Present: normal accommodation - ENT ENT exam: Present: mucous membranes dry - Neck Neck exam: Present: normal inspection - Respiratory Respiratory exam: Present: normal lung sounds bilaterally, decreased breath sounds. Absent: respiratory distress - Cardiovascular Cardiovascular Exam: Present: regular rate, normal rhythm. Absent: systolic murmur, diastolic murmur, rubs, gallop - GI/Abdominal GI/Abdominal exam: Present: soft, normal bowel sounds. Absent: distended, guarding - Rectal Rectal exam: Present: deferred - Extremities Exam Extremities exam: Present: normal inspection - Back Exam Back exam: Present: normal inspection - Neurological Exam Neurological exam: Present: altered - Expanded Neurological Exam Expanded Best Eye Response ([place]): (2) open to pain Best Motor Response ([place]): (1) no motor response Best Verbal Response ([place]): (2) incomprehsible sounds [place]on Total: 5 - Skin Skin exam: Present: warm, dry, intact, normal color. Absent: rash - Assessment Assessment Interval: Baseline - Level of Consciousness 1a. Level of Consciousness: coma/unresponsive - LOC Questions 1b. LOC Questions: aphasic - LOC Command 1c. LOC Commands: performs no tasks correctly - Best Gaze 2. Best Gaze: normal - Visual 3. Visual: no visual loss - Facial Palsy 4. Facial Palsy: normal symmetrical movement - Motor Arm 5a. Motor Arm Left: some gravity effort 5b. Motor Arm Right: some gravity effort - Motor Leg 6a. Motor Leg Left: some gravity effort 6b. Motor Leg Right: some gravity effort - Limb Ataxia 7. Limb Ataxia: absent - Sensory 8. Sensory: normal - Best Language 9. Best Language: coma/unresponsive - Dysarthria 10. Dysarthria: intubated or other barrier - Extinction and Inattention 11. Extinction/Inattention: complete neglect - Scoring Total Score: 20 Stroke Severity: Moderate to Severe Stroke ED Course Vital Signs 11/29/18 11/29/18 11/29/18 12:51 12:55 13:00 Temperature Pulse Rate 79 50 L Respiratory 22 11 L 15 Rate Blood Pressure 100/59 Blood Pressure 106/68 [Left] O2 Sat by Pulse 96 96 Oximetry 11/29/18 11/29/18 11/29/18 13:10 14:00 14:21 Temperature Pulse Rate 46 L 45 L 45 L Respiratory 18 18 Rate Blood Pressure 100/59 109/72 111/69 Blood Pressure [Left] O2 Sat by Pulse 100 Oximetry 11/29/18 11/29/18 11/29/18 15:00 16:00 17:39 Temperature Pulse Rate 41 L 59 L 44 L Respiratory 19 17 Rate Blood Pressure 108/70 103/72 105/67 Blood Pressure [Left] O2 Sat by Pulse 100 100 100 Oximetry 11/29/18 11/29/18 11/29/18 17:56 19:00 19:24 Temperature 85.1 F L 87.1 F L Pulse Rate 47 L 48 L Respiratory 18 18 Rate Blood Pressure 110/66 Blood Pressure 105/63 [Left] O2 Sat by Pulse 100 100 Oximetry 11/29/18 20:00 Temperature Pulse Rate 64 Respiratory 18 Rate Blood Pressure 96/64 Blood Pressure [Left] O2 Sat by Pulse 100 Oximetry - Reevaluation(s) Reevaluation #1: Patient is minimally responsive. Patient's GCS is 5, patient will be intubated to protect airway. 11/29/18 13:10 Reevaluation #2: Patient intubated without difficulty. See procedure note. Patient's oxygen saturation stable. Patient placed on fentanyl drip. 11/29/18 13:40 Reevaluation #3: Patient's ready for admission. Patient will be admitted to the hospitalist service. 11/29/18 15:13 - Consultations Consultation #1: Hospitalist consulted for admission. hospitalist to admit patient. 11/29/18 16:10 - Intubation Time Out Performed: Yes Sedative: Etomidate Paralytic: Rocuronium Laryngoscope: fiberoptic video scope Size: 3 Assist Device Used: fiberoptic device ET Tube Size: 7.5 Tube Secured Depth (cm): 22 Tube Secured Location: teeth Tube Placement Confirmation: visualized tube passing t, equal breath sounds bilat, no breath sounds over epi, confirmation by capnometr Patient Tolerated Procedure: well, no complications Intubation Complications: none - Lab Data Result diagrams: 12/05/18 03:42 12/05/18 03:42 Lab Results 11/29/18 11/29/18 11/29/18 Range/Units 13:07 13:16 13:16 WBC (4.5-11.0) K/mm3 RBC (3.65-5.03) M/mm3 Hgb (11.8-15.2) gm/dl Hct (35.5-45.6) % MCV (84-94) fl MCH (28-32) pg MCHC (32-34) % RDW (13.2-15.2) % Plt Count (140-440) K/mm3 Lymph % (Auto) (13.4-35.0) % [place] % (Auto) (0.0-7.3) % Eos % (Auto) (0.0-4.3) % Baso % (Auto) (0.0-1.8) % Lymph # (1.2-5.4) K/mm3 [place] # (0.0-0.8) K/mm3 Eos # (0.0-0.4) K/mm3 Baso # (0.0-0.1) K/mm3 Seg Neutrophils % (40.0-70.0) % Seg Neutrophils # (1.8-7.7) K/mm3 POC ABG pH (7.35-7.45) POC ABG pCO2 (35-45) POC ABG pO2 (80-105) POC ABG HCO3 (22-26 mml/L) POC ABG Total CO2 (23-27mmol/L) POC ABG O2 Sat POC ABG Base Excess ((-2) - (+3)mmol/L) VBG pH (7.320-7.420) FiO2 % Sodium (137-145) mmol/L Potassium (3.6-5.0) mmol/L Chloride (98-107) mmol/L Carbon Dioxide (22-30) mmol/L Anion Gap mmol/L BUN (9-20) mg/dL Creatinine (0.8-1.5) mg/dL Estimated GFR ml/min BUN/Creatinine Ratio % Glucose (75-100) mg/dL POC Glucose 289 H (70-105) Lactic Acid (0.7-2.0) mmol/L Calcium (8.4-10.2) mg/dL Total Bilirubin (0.1-1.2) mg/dL AST (5-40) units/L ALT (7-56) units/L Alkaline Phosphatase (35-129) units/L Ammonia (25-60) umol/L Total Creatine Kinase (55-170) units/L Troponin T (0.00-0.029) ng/mL Total Protein (6.3-8.2) g/dL Albumin (3.9-5) g/dL Albumin/Globulin Ratio % Triglycerides (2-149) mg/dL Cholesterol (50-199) mg/dL LDL Cholesterol Direct (50-130) mg/dL HDL Cholesterol (40-59) mg/dL Cholesterol/HDL Ratio % Urine Color Yellow (Yellow) Urine Turbidity Clear (Clear) Urine pH 5.0 (5.0-7.0) Ur Specific [place] 1.018 (1.003-1.030) Urine Protein 30 mg/dl (Negative) mg/dL Urine Glucose (UA) Neg (Negative) mg/dL Urine Ketones Neg (Negative) mg/dL Urine Blood Neg (Negative) Urine Nitrite Neg (Negative) Urine Bilirubin Neg (Negative) Urine Urobilinogen < 2.0 (<2.0) mg/dL Ur Leukocyte Esterase Neg (Negative) Urine WBC (Auto) 5.0 (0.0-6.0) /HPF Urine RBC (Auto) 2.0 (0.0-6.0) /HPF Urine Bacteria (Auto) 1+ (Negative) /HPF Salicylates (2.8-20.0) mg/dL Urine Opiates Screen Presumptive negative Urine Methadone Screen Presumptive negative Acetaminophen (10.0-30.0) ug/mL Ur Barbiturates Screen Presumptive negative Ur Phencyclidine Scrn Presumptive negative Ur Amphetamines Screen Presumptive negative U Benzodiazepines Scrn Presumptive negative Urine Cocaine Screen Presumptive negative U Marijuana (THC) Screen Presumptive negative Drugs of Abuse Note Disclamer Blood Type Antibody Screen 11/29/18 11/29/18 11/29/18 Range/Units 13:39 13:39 13:39 WBC 3.2 L (4.5-11.0) K/mm3 RBC 2.76 L (3.65-5.03) M/mm3 Hgb 10.4 L (11.8-15.2) gm/dl Hct 32.1 L (35.5-45.6) % MCV 116 H (84-94) fl MCH 38 H (28-32) pg MCHC 33 (32-34) % RDW 17.5 H (13.2-15.2) % Plt Count 48 L (140-440) K/mm3 Lymph % (Auto) 5.4 L (13.4-35.0) % [place] % (Auto) 4.9 (0.0-7.3) % Eos % (Auto) 0.0 (0.0-4.3) % Baso % (Auto) 0.2 (0.0-1.8) % Lymph # 0.2 L (1.2-5.4) K/mm3 [place] # 0.2 (0.0-0.8) K/mm3 Eos # 0.0 (0.0-0.4) K/mm3 Baso # 0.0 (0.0-0.1) K/mm3 Seg Neutrophils % 89.5 H (40.0-70.0) % Seg Neutrophils # 2.9 (1.8-7.7) K/mm3 POC ABG pH (7.35-7.45) POC ABG pCO2 (35-45) POC ABG pO2 (80-105) POC ABG HCO3 (22-26 mml/L) POC ABG Total CO2 (23-27mmol/L) POC ABG O2 Sat POC ABG Base Excess ((-2) - (+3)mmol/L) VBG pH (7.320-7.420) FiO2 % Sodium 153 H (137-145) mmol/L Potassium 4.8 (3.6-5.0) mmol/L Chloride 113.3 H (98-107) mmol/L Carbon Dioxide 21 L (22-30) mmol/L Anion Gap 24 mmol/L BUN 55 H (9-20) mg/dL Creatinine 2.4 H (0.8-1.5) mg/dL Estimated GFR 32 ml/min BUN/Creatinine Ratio 23 % Glucose 260 H (75-100) mg/dL POC Glucose (70-105) Lactic Acid 2.00 (0.7-2.0) mmol/L Calcium 8.7 (8.4-10.2) mg/dL Total Bilirubin 0.60 (0.1-1.2) mg/dL AST 68 H (5-40) units/L ALT 54 (7-56) units/L Alkaline Phosphatase 239 H (35-129) units/L Ammonia (25-60) umol/L Total Creatine Kinase 243 H (55-170) units/L Troponin T 0.054 H (0.00-0.029) ng/mL Total Protein 5.8 L (6.3-8.2) g/dL Albumin 3.0 L (3.9-5) g/dL Albumin/Globulin Ratio 1.1 % Triglycerides 68 (2-149) mg/dL Cholesterol 95 (50-199) mg/dL LDL Cholesterol Direct 30 L (50-130) mg/dL HDL Cholesterol 63 H (40-59) mg/dL Cholesterol/HDL Ratio 1.50 % Urine Color (Yellow) Urine Turbidity (Clear) Urine pH (5.0-7.0) Ur Specific [place] (1.003-1.030) Urine Protein (Negative) mg/dL Urine Glucose (UA) (Negative) mg/dL Urine Ketones (Negative) mg/dL Urine Blood (Negative) Urine Nitrite (Negative) Urine Bilirubin (Negative) Urine Urobilinogen (<2.0) mg/dL Ur Leukocyte Esterase (Negative) Urine WBC (Auto) (0.0-6.0) /HPF Urine RBC (Auto) (0.0-6.0) /HPF Urine Bacteria (Auto) (Negative) /HPF Salicylates (2.8-20.0) mg/dL Urine Opiates Screen Urine Methadone Screen Acetaminophen (10.0-30.0) ug/mL Ur Barbiturates Screen Ur Phencyclidine Scrn Ur Amphetamines Screen U Benzodiazepines Scrn Urine Cocaine Screen U Marijuana (THC) Screen Drugs of Abuse Note Blood Type Antibody Screen 11/29/18 11/29/18 11/29/18 Range/Units 13:39 13:39 13:39 WBC (4.5-11.0) K/mm3 RBC (3.65-5.03) M/mm3 Hgb (11.8-15.2) gm/dl Hct (35.5-45.6) % MCV (84-94) fl MCH (28-32) pg MCHC (32-34) % RDW (13.2-15.2) % Plt Count (140-440) K/mm3 Lymph % (Auto) (13.4-35.0) % [place] % (Auto) (0.0-7.3) % Eos % (Auto) (0.0-4.3) % Baso % (Auto) (0.0-1.8) % Lymph # (1.2-5.4) K/mm3 [place] # (0.0-0.8) K/mm3 Eos # (0.0-0.4) K/mm3 Baso # (0.0-0.1) K/mm3 Seg Neutrophils % (40.0-70.0) % Seg Neutrophils # (1.8-7.7) K/mm3 POC ABG pH (7.35-7.45) POC ABG pCO2 (35-45) POC ABG pO2 (80-105) POC ABG HCO3 (22-26 mml/L) POC ABG Total CO2 (23-27mmol/L) POC ABG O2 Sat POC ABG Base Excess ((-2) - (+3)mmol/L) VBG pH (7.320-7.420) FiO2 % Sodium (137-145) mmol/L Potassium (3.6-5.0) mmol/L Chloride (98-107) mmol/L Carbon Dioxide (22-30) mmol/L Anion Gap mmol/L BUN (9-20) mg/dL Creatinine (0.8-1.5) mg/dL Estimated GFR ml/min BUN/Creatinine Ratio % Glucose (75-100) mg/dL POC Glucose (70-105) Lactic Acid (0.7-2.0) mmol/L Calcium (8.4-10.2) mg/dL Total Bilirubin (0.1-1.2) mg/dL AST (5-40) units/L ALT (7-56) units/L Alkaline Phosphatase (35-129) units/L Ammonia 28.0 (25-60) umol/L Total Creatine Kinase (55-170) units/L Troponin T (0.00-0.029) ng/mL Total Protein (6.3-8.2) g/dL Albumin (3.9-5) g/dL Albumin/Globulin Ratio % Triglycerides (2-149) mg/dL Cholesterol (50-199) mg/dL LDL Cholesterol Direct (50-130) mg/dL HDL Cholesterol (40-59) mg/dL Cholesterol/HDL Ratio % Urine Color (Yellow) Urine Turbidity (Clear) Urine pH (5.0-7.0) Ur Specific [place] (1.003-1.030) Urine Protein (Negative) mg/dL Urine Glucose (UA) (Negative) mg/dL Urine Ketones (Negative) mg/dL Urine Blood (Negative) Urine Nitrite (Negative) Urine Bilirubin (Negative) Urine Urobilinogen (<2.0) mg/dL Ur Leukocyte Esterase (Negative) Urine WBC (Auto) (0.0-6.0) /HPF Urine RBC (Auto) (0.0-6.0) /HPF Urine Bacteria (Auto) (Negative) /HPF Salicylates < 0.3 L (2.8-20.0) mg/dL Urine Opiates Screen Urine Methadone Screen Acetaminophen < 5.0 L (10.0-30.0) ug/mL Ur Barbiturates Screen Ur Phencyclidine Scrn Ur Amphetamines Screen U Benzodiazepines Scrn Urine Cocaine Screen U Marijuana (THC) Screen Drugs of Abuse Note Blood Type Antibody Screen 11/29/18 11/29/18 11/29/18 Range/Units 13:39 13:39 14:24 WBC (4.5-11.0) K/mm3 RBC (3.65-5.03) M/mm3 Hgb (11.8-15.2) gm/dl Hct (35.5-45.6) % MCV (84-94) fl MCH (28-32) pg MCHC (32-34) % RDW (13.2-15.2) % Plt Count (140-440) K/mm3 Lymph % (Auto) (13.4-35.0) % [place] % (Auto) (0.0-7.3) % Eos % (Auto) (0.0-4.3) % Baso % (Auto) (0.0-1.8) % Lymph # (1.2-5.4) K/mm3 [place] # (0.0-0.8) K/mm3 Eos # (0.0-0.4) K/mm3 Baso # (0.0-0.1) K/mm3 Seg Neutrophils % (40.0-70.0) % Seg Neutrophils # (1.8-7.7) K/mm3 POC ABG pH 7.319 L (7.35-7.45) POC ABG pCO2 39.5 (35-45) POC ABG pO2 126 H (80-105) POC ABG HCO3 20.3 (22-26 mml/L) POC ABG Total CO2 21 (23-27mmol/L) POC ABG O2 Sat 99 POC ABG Base Excess -6 ((-2) - (+3)mmol/L) VBG pH 7.186 L* (7.320-7.420) FiO2 100 % Sodium (137-145) mmol/L Potassium (3.6-5.0) mmol/L Chloride (98-107) mmol/L Carbon Dioxide (22-30) mmol/L Anion Gap mmol/L BUN (9-20) mg/dL Creatinine (0.8-1.5) mg/dL Estimated GFR ml/min BUN/Creatinine Ratio % Glucose (75-100) mg/dL POC Glucose (70-105) Lactic Acid (0.7-2.0) mmol/L Calcium (8.4-10.2) mg/dL Total Bilirubin (0.1-1.2) mg/dL AST (5-40) units/L ALT (7-56) units/L Alkaline Phosphatase (35-129) units/L Ammonia (25-60) umol/L Total Creatine Kinase (55-170) units/L Troponin T (0.00-0.029) ng/mL Total Protein (6.3-8.2) g/dL Albumin (3.9-5) g/dL Albumin/Globulin Ratio % Triglycerides (2-149) mg/dL Cholesterol (50-199) mg/dL LDL Cholesterol Direct (50-130) mg/dL HDL Cholesterol (40-59) mg/dL Cholesterol/HDL Ratio % Urine Color (Yellow) Urine Turbidity (Clear) Urine pH (5.0-7.0) Ur Specific [place] (1.003-1.030) Urine Protein (Negative) mg/dL Urine Glucose (UA) (Negative) mg/dL Urine Ketones (Negative) mg/dL Urine Blood (Negative) Urine Nitrite (Negative) Urine Bilirubin (Negative) Urine Urobilinogen (<2.0) mg/dL Ur Leukocyte Esterase (Negative) Urine WBC (Auto) (0.0-6.0) /HPF Urine RBC (Auto) (0.0-6.0) /HPF Urine Bacteria (Auto) (Negative) /HPF Salicylates (2.8-20.0) mg/dL Urine Opiates Screen Urine Methadone Screen Acetaminophen (10.0-30.0) ug/mL Ur Barbiturates Screen Ur Phencyclidine Scrn Ur Amphetamines Screen U Benzodiazepines Scrn Urine Cocaine Screen U Marijuana (THC) Screen Drugs of Abuse Note Blood Type B POSITIVE Antibody Screen Negative 11/29/18 Range/Units 14:42 WBC (4.5-11.0) K/mm3 RBC (3.65-5.03) M/mm3 Hgb (11.8-15.2) gm/dl Hct (35.5-45.6) % MCV (84-94) fl MCH (28-32) pg MCHC (32-34) % RDW (13.2-15.2) % Plt Count (140-440) K/mm3 Lymph % (Auto) (13.4-35.0) % [place] % (Auto) (0.0-7.3) % Eos % (Auto) (0.0-4.3) % Baso % (Auto) (0.0-1.8) % Lymph # (1.2-5.4) K/mm3 [place] # (0.0-0.8) K/mm3 Eos # (0.0-0.4) K/mm3 Baso # (0.0-0.1) K/mm3 Seg Neutrophils % (40.0-70.0) % Seg Neutrophils # (1.8-7.7) K/mm3 POC ABG pH (7.35-7.45) POC ABG pCO2 (35-45) POC ABG pO2 (80-105) POC ABG HCO3 (22-26 mml/L) POC ABG Total CO2 (23-27mmol/L) POC ABG O2 Sat POC ABG Base Excess ((-2) - (+3)mmol/L) VBG pH (7.320-7.420) FiO2 % Sodium (137-145) mmol/L Potassium (3.6-5.0) mmol/L Chloride (98-107) mmol/L Carbon Dioxide (22-30) mmol/L Anion Gap mmol/L BUN (9-20) mg/dL Creatinine (0.8-1.5) mg/dL Estimated GFR ml/min BUN/Creatinine Ratio % Glucose (75-100) mg/dL POC Glucose (70-105) Lactic Acid 1.30 (0.7-2.0) mmol/L Calcium (8.4-10.2) mg/dL Total Bilirubin (0.1-1.2) mg/dL AST (5-40) units/L ALT (7-56) units/L Alkaline Phosphatase (35-129) units/L Ammonia (25-60) umol/L Total Creatine Kinase (55-170) units/L Troponin T (0.00-0.029) ng/mL Total Protein (6.3-8.2) g/dL Albumin (3.9-5) g/dL Albumin/Globulin Ratio % Triglycerides (2-149) mg/dL Cholesterol (50-199) mg/dL LDL Cholesterol Direct (50-130) mg/dL HDL Cholesterol (40-59) mg/dL Cholesterol/HDL Ratio % Urine Color (Yellow) Urine Turbidity (Clear) Urine pH (5.0-7.0) Ur Specific [place] (1.003-1.030) Urine Protein (Negative) mg/dL Urine Glucose (UA) (Negative) mg/dL Urine Ketones (Negative) mg/dL Urine Blood (Negative) Urine Nitrite (Negative) Urine Bilirubin (Negative) Urine Urobilinogen (<2.0) mg/dL Ur Leukocyte Esterase (Negative) Urine WBC (Auto) (0.0-6.0) /HPF Urine RBC (Auto) (0.0-6.0) /HPF Urine Bacteria (Auto) (Negative) /HPF Salicylates (2.8-20.0) mg/dL Urine Opiates Screen Urine Methadone Screen Acetaminophen (10.0-30.0) ug/mL Ur Barbiturates Screen Ur Phencyclidine Scrn Ur Amphetamines Screen U Benzodiazepines Scrn Urine Cocaine Screen U Marijuana (THC) Screen Drugs of Abuse Note Blood Type Antibody Screen - EKG Data -: EKG Interpreted by [place] EKG shows normal: sinus rhythm, axis, intervals, ST-T waves Rate: bradycardia Interpretation: other (lbbb) - Radiology Data Radiology results: report reviewed, image reviewed CT head without contrast CLINICAL HISTORY: Altered mental status FINDINGS: There is continued extensive cerebral white matter disease most consistent with microvascular angiopathy. The findings extend to involve the right parietal subcortical region compatible with old infarct at. There is also involvement of the right temporal subcortical white matter. The findings correlate with the previous CT of 11/09/2018. 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 There is no CT ends of acute intracranial hemorrhage or significant mass effect. There is mild cerebral atrophy with associated mild prominence of the ventricular system which appears unchanged at. There is developing minimal mucosal thickening within the right maxillary sinus. All CT scans at this location are performed using the CT dose reduction for ALARA by means of automated exposure control. IMPRESSION: There is continued extensive microvascular angiopathy as detailed above without CT evidence of acute intracranial hemorrhage. CHEST 1 VIEW INDICATION: post intubation. COMPARISON: 11/09/2018 FINDINGS: Support devices: Endotracheal tube with tip on along the lower clavicle margin in satisfactory position. Nasogastric tube with tip just inside the stomach should be advanced another 5-10 cm. Heart: Borderline cardiomegaly. Lungs/Pleura: Minimal edema with no consolidation or effusion. Additional findings: None. IMPRESSION: 1. Minimal interstitial edema. 2. Support devices as above. - Medical Decision Making Patient is 73-year-old male emergency room with complaints of unresponsive and altered mental status. Patient immediately intubated to protect airway. Pattie ent admitted to the hospitalist service. Patient has multiple lab abnormalities. Patient's EKG shows bradycardia. Patient's chest x-ray negative and ETT in good placement. Patient had a head CT done. - Differential Diagnosis altered mental status. Unresponsive. encephalopathy. Dehydration. Critical Care Time: Yes Critical care attestation.: If time is entered above; I have spent that time in minutes in the direct care of this critically ill patient, excluding procedure time. Critical Care Time: 55 minutes ED Disposition Clinical Impression: Unresponsive episode, Acute encephalopathy, Metabolic acidosis, Acute renal insufficiency, Acidosis, Elevated troponin, Hypernatremia, Dehydration Altered mental state Qualifiers: Altered mental status type: unspecified Qualified Code(s): R41.82 - Altered mental status, unspecified HIV (human immunodeficiency virus infection) Qualifiers: HIV symptom status: unspecified Qualified Code(s): B20 - Human immunodeficiency virus [HIV] disease Disposition: OP ADMIT IP TO THIS HOSP Is pt being admited?: Yes Does the pt Need Aspirin: No Condition: Critical Time of Disposition: 16:10
[2018-11-29] MEDS ORDERED: NACL 0.9% 1000 ML 1,000 ML IV ONE (13:10)
[2018-11-29] MEDS ORDERED: AMIDATE IV ONE ×2 (13:20→13:25)
[2018-11-29] MEDS ORDERED: ZEMURON IV ONE ×2 (13:20→13:25)
[2018-11-29] MEDS: fentaNYL DRIP Premix 2,000 MCG/100 ML BAG IV SCH (13:35)
[2018-11-29 13:43] LABS: Bacteria,Urine 1+ /HPF (Negative); Bilirubin,Urine NEG (Negative); Blood,Urine NEG (Negative); Color,Urine Yellow (Yellow); Urobilinogen,Urine < 2.0 mg/dL (<2.0)
[2018-11-29 13:46] LABS: Amphetamine Screen,Urine PRESUMPTIVE NEGATIVE; Benzodiazepines Screen,Urine PRESUMPTIVE NEGATIVE; Cannabinoid Screen,Urine PRESUMPTIVE NEGATIVE; Cocaine Screen,Urine PRESUMPTIVE NEGATIVE; Methadone Screen,Urine PRESUMPTIVE NEGATIVE; Opiate Screen,Urine PRESUMPTIVE NEGATIVE
[2018-11-29 13:55] LABS: Basophils % (Auto) 0.2 % (0.0-1.8); Hematocrit 32.1 % (35.5-45.6); Hemoglobin 10.4 gm/dl (11.8-15.2); Lymphocytes # (Auto) 0.2 K/mm3 (1.2-5.4); Lymphocytes % (Auto) 5.4 % (13.4-35.0); Mean Corpuscular HGB Conc 33 % (32-34); Monocytes # (Auto) 0.2 K/mm3 (0.0-0.8); Monocytes % (Auto) 4.9 % (0.0-7.3); Red Blood Count 2.76 M/mm3 (3.65-5.03); Red Cell Distribution Width 17.5 % (13.2-15.2)
[2018-11-29 13:58] LABS: Mean Corpuscular Volume 116 fl (84-94); Platelet Count 48 K/mm3 (140-440)
[2018-11-29 14:19] LABS: Calcium 8.7 mg/dL (8.4-10.2)
[2018-11-29 14:49] LABS: Chol/HDL Ratio 1.5 %
--- NOTE | 2018-11-29 14:53 | XRay Report ---
CHEST 1 VIEW INDICATION: post intubation. COMPARISON: 11/09/2018 FINDINGS: Support devices: Endotracheal tube with tip on along the lower clavicle margin in satisfactory positi on. Nasogastric tube with tip just inside the stomach should be advanced another 5-10 cm. Heart: Borderline cardiomegaly. Lungs/Pleura: Minimal edema with no consolidation or effusion. Additional findings: None. IMPRESSION: 1. Minimal interstitial edema. 2. Support devices as above. Signer Name: Adam Cullen MD Signed: 11/29/2018 2:49 PM Workstation Name: [id number]
--- NOTE | 2018-11-29 17:01 | Cat Scan Report ---
CT head without contrast CLINICAL HISTORY: Altered mental status FINDINGS: There is continued extensive cerebral white matter disease most consistent with microvascul ar angiopathy. The findings extend to involve the right parietal subcortical region compatible with o ld infarct at. There is also involvement of the right temporal subcortical white matter. The findings correlate with the previous CT of 11/09/2018. 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 There is no CT ends of acute intracranial hemorrhage or significant mass effect. There is mild cerebr al atrophy with associated mild prominence of the ventricular system which appears unchanged at. Ther e is developing minimal mucosal thickening within the right maxillary sinus. All CT scans at this [facility] ation are performed using the CT dose reduction for ALARA by means of automated exposure control. IMPRESSION: There is continued extensive microvascular angiopathy as detailed above without CT evidence of acute intracranial hemorrhage. Signer Name: Berlin Esqueda MD Signed: 11/29/2018 4:57 PM Workstation Name: [id number]
[2018-11-30] MEDS ORDERED: REGLAN IV PRN ×2 (00:06→00:22)
[2018-11-30] MEDS ORDERED: SODIUM CHLORIDE FLUSH SYRINGE 10 ML IV PRN (00:06)
[2018-11-30] MEDS ORDERED: DILAUDID IV PRN (00:06)
[2018-11-30] MEDS ORDERED: ZOFRAN IV PRN (00:06)
[2018-11-30] MEDS ORDERED: SODIUM BICARBONATE FEEDTUBE PRN ×2 (00:06→11:24)
[2018-11-30] MEDS ORDERED: SIMPLE SYRUP FEEDTUBE PRN ×4 (00:06→11:24)
[2018-11-30] MEDS ORDERED: PANCREAZE DR 10,500 UNIT FEEDTUBE PRN ×2 (00:06→11:24)
[2018-11-30] MEDS ORDERED: PROVENTIL IH PRN (00:17)
[2018-11-30] MEDS ORDERED: NACL 0.9% 1000 ML 1,000 ML IV SCH (01:00)
[2018-11-30] MEDS ORDERED: VANCOMYCIN PHARMACY TO DOSE IV SCH ×2 (01:00)
[2018-11-30] MEDS ORDERED: MAXIPIME/NS 2 GM/100 ML 2 GM/100 ML BAG IV SCH ×2 (01:00)
[2018-11-30] MEDS: SOLU-Medrol IV SCH ×2 (01:42→09:00)
[2018-11-30] MEDS ORDERED: DUONEB *Not for PRN Use IH SCH (02:00)
[2018-11-30] MEDS ORDERED: VANCOMYCIN 1,500 MG in NACL 0.9% 500 ML 500 ML IV ONE (02:00)
[2018-11-30 06:05] LABS: ABG Base Excess -6.2 mmol/L (-2.0-3.0); ABG HCO3 18.5 mmol/L (20.0-26.0); ABG Methemoglobin 0.7 % (0.0-1.5); ABG Oxygen Saturation 99.3 % (95.0-99.0); ABG PCO2 33.9 mm Hg; ABG PH 7.356 pH Units (7.350-7.450); ABG PO2 203.3 mm Hg (80.0-90.0)
--- NOTE | 2018-11-30 06:10 | Event Note ---
Date: 11/29/18 See h/p in reports Acute resp failure On Vent
[2018-11-30] MEDS: fentaNYL DRIP Premix 2,000 MCG/100 ML BAG IV SCH (07:00)
[2018-11-30] MEDS: HumaLOG SUB-Q SCH ×3 (07:00→18:00)
--- NOTE | 2018-11-30 07:18 | History and Physical Report ---
CHIEF COMPLAINT: 1. Decreased responsiveness. 2. Respiratory distress. HISTORY OF PRESENT ILLNESS: A 73-year-old male with history of hypertension, hyperlipidemia, and HIV, sent from the local shelter for unresponsiveness and altered mental status. The amount of unresponsiveness time is not known. No fever or chills. No precipitating factors. The patient also in respiratory distress. The patient intubated in the Emergency Room for protection of airway and respiratory failure. PAST MEDICAL HISTORY: As mentioned, severe dementia, asthma/COPD, hyperlipidemia, GERD, BPH and insulin-dependent diabetes. CURRENT MEDICATIONS: Coreg 6.25 b.i.d., ____ 300 mg daily, Crestor 10 mg daily, amlodipine 10 mg daily, Isentress 400 mg p.o. q.12 hours. PAST SURGICAL HISTORY: Bilateral hip surgery. FAMILY HISTORY: Hypertension. SOCIAL HISTORY: Lives in a local shelter. Unknown if patient smoked or recreational drugs were done. REVIEW OF SYSTEMS: Significant for decreased responsiveness and respiratory distress. Otherwise, review of systems negative. PHYSICAL EXAMINATION: GENERAL: Elderly male, intubated. VITAL SIGNS: Blood pressure is 101/59, temperature is 98, pulse is 72, respiratory rate is 18. HEENT: Unremarkable. Pupils equal and reactive. Intubated. ET tube in place connected to the ventilator. NECK: Supple, no lymphadenopathy, no thyromegaly. LUNGS: Scattered rhonchi bilaterally. Normal air entry. CARDIOVASCULAR: S1, S2 heard. No gallop, no murmur, no rub. Apical impulses in left fifth intercostal space and midclavicular line. ABDOMEN: Soft and benign. No hepatosplenomegaly. No guarding, no rigidity. Hernial orifices are normal. EXTREMITIES: Good pedal pulses. No pedal edema. CENTRAL NERVOUS SYSTEM: Decreased responsiveness. Responds to painful stimuli. SKIN: Small superficial ulcers on the left base of the great toe and left second toe and also the right great toe. Superficial ulcers on the right great toe, right second toe and also on the sacral region, grade 1 ulcers 1 cm x 1 cm. Skin breakdown present on the maturation of the sacrum area. LABORATORY DATA: Significant for white count of 3200, hemoglobin of 10.4, hematocrit of 32.1, platelet count of 48,000. Blood gas significant for pH of 7.31, pCO2 of 39, pO2 of 126. Sodium is 153, BUN and creatinine is 55 and 2.4, glucose is 289. AST, ALT is 68 and 54 respectively. Alk phos is 239. Ammonia level is normal. Troponin is 0.054, total protein is 5.8, albumin is low at 3.0. Urine was normal. Drug screen was negative for everything. IMAGING STUDIES: Chest x-ray, minimal interstitial edema. ET tube in place. Head CT, extensive microvascular angiopathy and no evidence of acute intracranial hemorrhage. ASSESSMENT AND PLAN: 1. Acute encephalopathy, etiology unclear. The patient has a history of HIV. We will get ID consult. The patient on retrovirals. 2. Acute respiratory failure. The patient to get DuoNeb and IV cefepime and vancomycin. Steroids were not initiated as the patient was not wheezing a lot. 3. Hypernatremia. Half normal saline for now. 4. Acute kidney injury secondary to acute tubular necrosis. IV fluids for now. 5. Insulin-dependent diabetes. Continue insulin coverage. 6. Malnutrition. Dietitian consult. The patient's albumin is 3.0, moderate malnutrition. 7. Deep venous thrombosis prophylaxis, heparin 5000 q.12 and gastrointestinal prophylaxis. In summary, the patient has hypernatremia, acute encephalopathy, severe malnutrition and acute kidney injury. Director Of Estate consult requested. CRITICAL CARE STATEMENT: The high probability of a clinically significant sudden or life-threatening deterioration of the pulmonary, cardiac and renal systems required my full and direct attention, intervention and personal management. The aggregate critical care time was 40 minutes. This time is in addition to time spent performing reported procedures, but includes the followin. Data review and interpretation. 2. Patient assessment and monitoring of vital signs. 3. Documentation. 4. Medication orders and management. JOB# [id number] TOMMIE/NTS
[2018-11-30] MEDS: DUONEB *Not for PRN Use IH SCH ×4 (07:47→19:50)
--- NOTE | 2018-11-30 08:11 | XRay Report ---
ABDOMEN 1 VIEW(S) INDICATION / CLINICAL INFORMATION: OG tube placement. COMPARISON: Chest x-ray from yesterday FINDINGS: TUBES / LINES: NG tube has been advanced into the mid stomach. BOWEL GAS PATTERN: No significant abnormality. FREE AIR / EXTRALUMINAL GAS: None seen. ADDITIONAL FINDINGS: No significant additional findings. IMPRESSION: 1. NGT as above. Signer Name: Adam Cullen MD Signed: 11/30/2018 8:06 AM Workstation Name: [id number]
[2018-11-30] MEDS: PEPCID IV SCH ×2 (09:38→22:20)
[2018-11-30] MEDS ORDERED: PEPCID IV SCH (10:00)
[2018-11-30] MEDS: SODIUM CHLORIDE FLUSH SYRINGE 10 ML IV SCH ×2 (10:00→22:22)
--- NOTE | 2018-11-30 10:39 | Consultation ---
History of Present Illness - Reason for Consult Consult date: 11/30/18 acute renal failure - History of Present Illness The patient is a 73 YO Male with history significant for HIV, COPD, DM, CVA, HTN, HLD, Dementia and CKD who was presented to [facility] ED after he was found on the floor unresponsive, by a family member. Patient was unable to give any history at this time and there was no family member at the bedside. Vital signs significant for intermittent hypotension. Labs revealed Sodium 153, creatinine 2.4 and elevated troponin. Head CT scan was negative for any acute process. Currently he is intubated and on vent. Nephrology was consulted for further evaluation. Past History Past Medical History: COPD, diabetes, HIV/AIDS, hypertension, hyperlipidemia, renal failure, other (Dementia) Medications and Allergies Allergies Allergy/AdvReac Type Severity Reaction Status Date / Time No Known Allergies Allergy Unverified 03/29/16 00:43 Home Medications Medication Instructions Recorded Confirmed Last Taken Type Aspirin [Aspirin BABY CHEW TAB] 81 mg PO QDAY #30 tab.chew 11/15/17 11/29/18 Unknown Rx Amlodipine Besylate 10 mg PO QDAY 05/21/18 11/29/18 Unknown History Carvedilol 6.25 mg PO BID 05/21/18 11/29/18 Unknown History Isentress 400 mg PO Q12HR 05/21/18 11/29/18 Unknown History Rosuvastatin Calcium 10 mg PO DAILY 05/21/18 11/29/18 Unknown History Memantine [Namenda] 5 mg PO QDAY #30 tablet 11/01/18 11/29/18 Unknown Rx Albuterol Sulfate [Albuterol 0.63% 0.63 mg IH TID PRN 30 Days ml 11/07/18 11/29/18 Unknown Rx NEBS] AtorvaSTATin [Lipitor] 20 mg PO QDAY #30 tablet 11/07/18 11/29/18 Unknown Rx Famotidine [Pepcid] 10 mg PO BID #60 tablet 11/07/18 11/29/18 Unknown Rx Ipratropium/Albuterol Sulfate 1 ampul IH Q6HR 30 Days ampul.neb 11/07/18 11/29/18 Unknown Rx [DUONEB *Not for PRN Use*] Tamsulosin [Flomax] 0.4 mg PO QHS #30 capsule 11/07/18 11/29/18 Unknown Rx Zidovudine 300 mg PO DAILY 11/09/18 11/29/18 Unknown History Insulin Regular, Human [HumuLIN R] 0 unit SQ AC #1 vial 11/12/18 11/29/18 Unknown Rx Active Meds: Active Medications Albuterol (Proventil) 2.5 mg IH Q4HRT PRN PRN Reason: Shortness Of Breath Albuterol/Ipratropium (Duoneb *Not For Prn Use*) 1 ampul IH QIDRT [facility] Last Admin: 11/30/18 07:47 Dose: 1 ampul Documented by: Lipase/Protease/Amylase (Pancreaze Dr 10,500 Unit) 1 each FEEDTUBE PRN PRN PRN Reason: For Clogged Feeding Tube Famotidine (Pepcid) 10 mg IV BID [facility] Last Admin: 11/30/18 09:38 Dose: 10 mg Documented by: Hydromorphone HCl (Dilaudid) 0.5 mg IV Q3H PRN PRN Reason: Pain , Severe (7-10) Fentanyl Citrate (Fentanyl Drip Premix) 2,000 mcg in 100 mls @ 4.065 mls/hr IV TITR KEN; Protocol Last Titration: 11/29/18 20:45 Dose: 0.5 mcg/kg/hr, 2.033 mls/hr Documented by: Sodium Chloride (Nacl 0.45% 1000 Ml) 1,000 mls @ 100 mls/hr IV DIRECT KEN Stop: 12/04/18 11:00 Cefepime HCl (Maxipime/Ns 2 Gm/100 Ml) 2 gm in 100 mls @ 200 mls/hr IV Q24H KEN; Protocol Insulin Human Lispro (Humalog) 0 unit SUB-Q Q6HR KEN; Protocol Last Admin: 11/30/18 07:00 Dose: 3 unit Documented by: Methylprednisolone Sodium Succinate (Solu-Medrol) 125 mg IV Q8H KEN Last Admin: 11/30/18 09:00 Dose: 125 mg Documented by: Metoclopramide HCl (Reglan) 5 mg IV Q6H PRN PRN Reason: Nausea And Vomiting Ondansetron HCl (Zofran) 4 mg IV Q8H PRN PRN Reason: Nausea And Vomiting Pneumococcal Polyvalent Vaccine (Pneumovax 23) 0.5 ml IM .ONCE ONE Stop: 11/30/18 12:01 Simple Syrup (Simple Syrup) 15 ml FEEDTUBE PRN PRN PRN Reason: Hypoglycemia Simple Syrup (Simple Syrup) 30 ml FEEDTUBE PRN PRN PRN Reason: Hypoglycemia Sodium Bicarbonate (Sodium Bicarbonate) 325 mg FEEDTUBE PRN PRN PRN Reason: For Clogged Feeding Tube Sodium Chloride (Sodium Chloride Flush Syringe 10 Ml) 10 ml IV BID KEN Sodium Chloride (Sodium Chloride Flush Syringe 10 Ml) 10 ml IV PRN PRN PRN Reason: LINE FLUSH Review of Systems ROS unobtainable: due to endotracheal tube Exam - Vital Signs Vital signs: Vital Signs Pulse Resp BP Pulse Ox 79 22 106/68 96 11/29/18 12:51 11/29/18 12:51 11/29/18 12:51 11/29/18 12:51 - General Appearance General appearance: well-developed, sedated on ventilator, intubated EENT: ATNC, PERRL Neck: Present: neck supple, trachea midline Respiratory: Clear to Ascultation Heart: regular, S1S2, no murmurs Gastrointestinal: Present: normoactive bowel sounds. Absent: tenderness, distended Integumentary: other (R leg dressing noted) Neurologic: other (not responding) Musculoskeletal: Present: other (b/l LE 1+ edema noted) Results - Lab Results 11/29/18 13:39 11/29/18 13:39 Most recent lab results ABG pH 7.356 pH Units (7.350-7.450) 11/30/18 05:50 ABG pCO2 33.9 mm Hg 11/30/18 05:50 ABG pO2 203.3 mm Hg (80.0-90.0) H 11/30/18 05:50 ABG HCO3 18.5 mmol/L (20.0-26.0) L 11/30/18 05:50 ABG O2 Saturation 99.3 % (95.0-99.0) H 11/30/18 05:50 Calcium 8.7 mg/dL (8.4-10.2) 11/29/18 13:39 - Image Kidney/bladder ultrasound: pending Assessment and Plan 1. Acute kidney injury: Vasomotor CONNIE superimposed on CKD in the setting of hypotension. Urine studies and Renal US ordered. Continue IV fluids. Monitor renal function. Avoid nephrotoxic agents. Meds dosage based on GFR. 2. FEN: Hypernatremia, follow Sodium level. Monitor lytes. 3. Acute hypoxic respiratory failure: intubated on vent. 4. Acute Metabolic Encephalopathy. 5. Elevated troponin. 6. Type 2 DM with hyperglycemia.
--- NOTE | 2018-11-30 11:08 | Progress Note ---
Assessment and Plan Assessment and plan: Patient is a 73 yo man from [facility] with severe end-stage co-morbities including HIV, type 2 DM, NSTEMI type 2, hyperkalemia, hypernatremia, malnutrition, severe CHF with EF 15-20%, Dementia, CVA with SAH after fall here at [facility] on 05/22/18 with transferred to [facility], recurrent bouts of hypog lycmia, who had been admitted 3 times this month of November 2018. Initially he was admitted on 10/24/18 to 11/01/18 due to AMS, new CVA was ruled out by MRI but did show chronic infarcts in the right parietal lobe and the right MCA A R COLLECTIONS REP watershed territory and chronic lacunar infarct in the right paracentral [place] area. It was recommended that patient go to SNF but refused and took him home. He returned 2 days later due to hypoglycemia, it appears he wasn't eating enough but still taking DM medications. He was then discharged to [facility] on 11/07/2018. He returned 2 days later on 11/09/2018 due to hypoxemia and hypoglycemia again. He was discharged back to the [place] . Now he returns to the ED on 11/29/18 with severe worsening AMS GCS of 5 requiring Intubation. I do not know why he is on Fentanyl drip. * CT head without contrast Impression: There is continued extensive microvascula r angiopathy as detailed...without CT evidence of acute ICH. * pCXR Impression: Minimal interstitial edema, ngt in stomach, needs advancing 5-10 cm, borderline cardiomegaly, no consolidation or effusion * Abd XRAY after NGT advancement, shows it is in the correct position Acute Metabolic Encephalopathy, poa, work up in progress: consult Neurology, Acute respiratory failure, poa s/p ETT placement: consult Pulmonology Acute on chronic systolic heart failure (congestive heart failure) 15-20%, mild: treat medically, bp borderline too low for IV lasix, consult Cardiology HIV (human immunodeficiency virus infection): ID consulted, I don't know why patient is on ABX with IV vancomycin and iv cefepime, defer to ID Acute renal insufficiency, ATN + vasomotor nephropathy, poa: monitor uop q shift, nephrology consulted, urine electrolytes, strict I/O, monitor uop q shift, monitor fluid balance, monitor serum creatnine, Type 2 DM on Insulin with recurrent hypoglycemia: treat with SSI, ADA Severe malnutrition, as evidence by decubitus ulcers, inadequate nutritional intake, and muscle wasting. poa: consult Gaming Table Operator Decubitus ulcers at least stage 3: Consult wound care Hypernatremia: Likely from dehydration, treat with free water, monitor bmp closely DVT prophylaxis: SCD to BLE while in bed, on d/c a/c Severe pancytopenia, plt count only 48: stop heparin, consult Heme/onc Disposition: continue inpatient ICU care full code CCT 33 minutes History Interval history: Patient was seen and examined. Follow-up on current diagnosis of AMS. No overnight events reported to me. Imaging, nursing note, chart, labs and old chart reviewed. I called the NOK in EMR, his son @ [phone], no answer at 1144am Hospitalist Physical - Physical exam Narrative exam: Gen: cachetic, intubated and sedated on fentanyl drip HEENT: NCAT, pupils pinpoint Neck: supple, no adenopathy, no thyromegaly, CVS/Heart: RRR, normal S1S2, pulses present bilaterally Chest/Lungs: diminished BS, Symmetrical chest expansion, good air entry bilaterally GI/Abdomen: soft, NTND, good bowel sounds, no guarding or rebound /Bladder: no suprapubic tenderness, no CVA or paraspinal tenderness Extermity/Skin: ble edema MSK: intubated and sedated Neuro: intubated and sedated Psych: intubated and sedated - Constitutional Vitals: Temp Pulse Resp BP Pulse Ox 98.2 F 92 H 18 102/5 98 11/30/18 08:00 11/30/18 10:20 11/30/18 10:15 11/30/18 10:20 11/30/18 10:20 Results - Labs CBC & Chem 7: 11/29/18 13:39 11/29/18 13:39 Labs: Laboratory Last Values WBC 3.2 K/mm3 (4.5-11.0) L 11/29/18 13:39 RBC 2.76 M/mm3 (3.65-5.03) L 11/29/18 13:39 Hgb 10.4 gm/dl (11.8-15.2) L 11/29/18 13:39 Hct 32.1 % (35.5-45.6) L 11/29/18 13:39 MCV 116 fl (84-94) H 11/29/18 13:39 MCH 38 pg (28-32) H 11/29/18 13:39 MCHC 33 % (32-34) 11/29/18 13:39 RDW 17.5 % (13.2-15.2) H 11/29/18 13:39 Plt Count 48 K/mm3 (140-440) L 11/29/18 13:39 Lymph % (Auto) 5.4 % (13.4-35.0) L 11/29/18 13:39 [place] % (Auto) 4.9 % (0.0-7.3) 11/29/18 13:39 Eos % (Auto) 0.0 % (0.0-4.3) 11/29/18 13:39 Baso % (Auto) 0.2 % (0.0-1.8) 11/29/18 13:39 Lymph # 0.2 K/mm3 (1.2-5.4) L 11/29/18 13:39 [place] # 0.2 K/mm3 (0.0-0.8) 11/29/18 13:39 Eos # 0.0 K/mm3 (0.0-0.4) 11/29/18 13:39 Baso # 0.0 K/mm3 (0.0-0.1) 11/29/18 13:39 Seg Neutrophils % 89.5 % (40.0-70.0) H 11/29/18 13:39 Seg Neutrophils # 2.9 K/mm3 (1.8-7.7) 11/29/18 13:39 POC ABG pH 7.319 (7.35-7.45) L 11/29/18 14:24 ABG pH 7.356 pH Units (7.350-7.450) 11/30/18 05:50 POC ABG pCO2 39.5 (35-45) 11/29/18 14:24 ABG pCO2 33.9 mm Hg 11/30/18 05:50 POC ABG pO2 126 (80-105) H 11/29/18 14:24 ABG pO2 203.3 mm Hg (80.0-90.0) H 11/30/18 05:50 POC ABG HCO3 20.3 (22-26 mml/L) 11/29/18 14:24 ABG HCO3 18.5 mmol/L (20.0-26.0) L 11/30/18 05:50 POC ABG Total CO2 21 (23-27mmol/L) 11/29/18 14:24 POC ABG O2 Sat 99 11/29/18 14:24 ABG O2 Saturation 99.3 % (95.0-99.0) H 11/30/18 05:50 ABG O2 Content 15.3 (0.0-44) 11/30/18 05:50 POC ABG Base Excess -6 ((-2) - (+3)mmol/L) 11/29/18 14:24 ABG Base Excess -6.2 mmol/L (-2.0-3.0) L 11/30/18 05:50 ABG Hemoglobin 10.9 gm/dl (14.0-18.0) L 11/30/18 05:50 ABG Carboxyhemoglobin 1.6 % (0.0-5.0) 11/30/18 05:50 ABG Methemoglobin 0.7 % (0.0-1.5) 11/30/18 05:50 VBG pH 7.186 (7.320-7.420) L* 11/29/18 13:39 97.0 % (95.0-99.0) 11/30/18 05:50 50 % 11/30/18 05:50 Sodium 153 mmol/L (137-145) H 11/29/18 13:39 Potassium 4.8 mmol/L (3.6-5.0) 11/29/18 13:39 Chloride 113.3 mmol/L (98-107) H 11/29/18 13:39 Carbon Dioxide 21 mmol/L (22-30) L 11/29/18 13:39 24 mmol/L 11/29/18 13:39 BUN 55 mg/dL (9-20) H 11/29/18 13:39 2.4 mg/dL (0.8-1.5) H 11/29/18 13:39 Estimated GFR 32 ml/min 11/29/18 13:39 23 % 11/29/18 13:39 Glucose 260 mg/dL (75-100) H 11/29/18 13:39 POC Glucose 234 (70-105) H 11/30/18 08:52 Lactic Acid 1.30 mmol/L (0.7-2.0) 11/29/18 14:42 Calcium 8.7 mg/dL (8.4-10.2) 11/29/18 13:39 0.60 mg/dL (0.1-1.2) 11/29/18 13:39 AST 68 units/L (5-40) H 11/29/18 13:39 ALT 54 units/L (7-56) 11/29/18 13:39 239 units/L (35-129) H 11/29/18 13:39 28.0 umol/L (25-60) 11/29/18 13:39 243 units/L (55-170) H 11/29/18 13:39 0.054 ng/mL (0.00-0.029) H 11/29/18 13:39 5.8 g/dL (6.3-8.2) L 11/29/18 13:39 3.0 g/dL (3.9-5) L 11/29/18 13:39 1.1 % 11/29/18 13:39 Triglycerides 68 mg/dL (2-149) 11/29/18 13:39 Cholesterol 95 mg/dL (50-199) 11/29/18 13:39 30 mg/dL (50-130) L 11/29/18 13:39 63 mg/dL (40-59) H 11/29/18 13:39 1.50 % 11/29/18 13:39 Yellow (Yellow) 11/29/18 13:16 Clear (Clear) 11/29/18 13:16 5.0 (5.0-7.0) 11/29/18 13:16 Ur Specific [place] 1.018 (1.003-1.030) 11/29/18 13:16 30 mg/dl mg/dL (Negative) 11/29/18 13:16 Neg mg/dL (Negative) 11/29/18 13:16 Neg mg/dL (Negative) 11/29/18 13:16 Neg (Negative) 11/29/18 13:16 Neg (Negative) 11/29/18 13:16 Neg (Negative) 11/29/18 13:16 < 2.0 mg/dL (<2.0) 11/29/18 13:16 Ur Leukocyte Esterase Neg (Negative) 11/29/18 13:16 5.0 /HPF (0.0-6.0) 11/29/18 13:16 2.0 /HPF (0.0-6.0) 11/29/18 13:16 1+ /HPF (Negative) 11/29/18 13:16 Salicylates < 0.3 mg/dL (2.8-20.0) L 11/29/18 13:39 Presumptive negative 11/29/18 13:16 Presumptive negative 11/29/18 13:16 Acetaminophen < 5.0 ug/mL (10.0-30.0) L 11/29/18 13:39 Ur Barbiturates Screen Presumptive negative 11/29/18 13:16 Ur Phencyclidine Scrn Presumptive negative 11/29/18 13:16 Ur Amphetamines Screen Presumptive negative 11/29/18 13:16 U Benzodiazepines Scrn Presumptive negative 11/29/18 13:16 Presumptive negative 11/29/18 13:16 U Marijuana (THC) Screen Presumptive negative 11/29/18 13:16 Disclamer 11/29/18 13:16 Blood Type B POSITIVE 11/29/18 13:39 Antibody Screen Negative 11/29/18 13:39 Active Medications - Current Medications Current Medications: Generic Name Dose Route Start Last Admin Trade Name Freq PRN Reason Stop Dose Admin Albuterol 2.5 mg 11/30/18 00:17 Proventil IH Q4HRT PRN Shortness Of Breath Albuterol/Ipratropium 1 ampul 11/30/18 08:00 11/30/18 07:47 Duoneb *Not For Prn Use* IH 1 ampul QIDRT KEN Administration Lipase/Protease/Amylase 1 each 11/30/18 00:06 Harleen Manning 10,500 Unit FEEDTUBE PRN PRN For Clogged Feeding Tube Famotidine 10 mg 11/30/18 10:00 11/30/18 09:38 Pepcid IV 10 mg BID KEN Administration Sodium Chloride 1,000 mls @ 100 mls/hr 11/30/18 07:00 Nacl 0.45% 1000 Ml IV 12/04/18 11:00 DIRECT KEN Cefepime HCl 2 gm in 100 mls @ 200 mls/hr 11/30/18 22:00 Maxipime/Ns 2 Gm/100 Ml IV Q24H [facility] Protocol Insulin Human Lispro 0 unit 11/30/18 07:00 11/30/18 07:00 Humalog SUB-Q 3 unit Q6HR KEN Administration Protocol Metoclopramide HCl 5 mg 11/30/18 00:22 Reglan IV Q6H PRN Nausea And Vomiting Ondansetron HCl 4 mg 11/30/18 00:06 Zofran IV Q8H PRN Nausea And Vomiting Pneumococcal Polyvalent Vaccine 0.5 ml 11/30/18 12:00 Pneumovax 23 IM 11/30/18 12:01 .ONCE ONE Simple Syrup 15 ml 11/30/18 00:06 Simple Syrup FEEDTUBE PRN PRN Hypoglycemia Simple Syrup 30 ml 11/30/18 00:06 Simple Syrup FEEDTUBE PRN PRN Hypoglycemia Sodium Bicarbonate 325 mg 11/30/18 00:06 Sodium Bicarbonate FEEDTUBE PRN PRN For Clogged Feeding Tube Sodium Chloride 10 ml 11/30/18 10:00 Sodium Chloride Flush Syringe 10 Ml IV BID KEN Sodium Chloride 10 ml 11/30/18 00:06 Sodium Chloride Flush Syringe 10 Ml IV PRN PRN LINE FLUSH Nutrition/Malnutrition Assess - Dietary Evaluation Nutrition/Malnutrition Findings: Nutrition Notes Start: 11/30/18 08:33 Freq: Status: Active Protocol: Document 11/30/18 08:33 LM (Rec: 11/30/18 08:43 LM [email or web address]) Nutrition Notes Need for Assessment generated from: MD Order Initial or Follow up Assessment Current Diagnosis COPD,Diabetes,Hypertension Other Pertinent Diagnosis dementia, HIV, AMS Current Diet NPO Labs/Tests Reviewed Pertinent Medications Solumedrol Height 6 ft 4 in Weight 79.2 kg [place] Body Weight (kg) 91.81 BMI 21.2 Burn Absent Trauma Absent Is patient on ventilator? Yes Is Patient Ambulatory and/or Out of Bed No REE-([facility]-confined to bed) 1966.356 Calculation Used for Recommendations [facility] Additional Notes Protein: 79-95g (1.1.2g/kg) Fluids: 1 ml/kcal Nutrition Intervention Change Diet Order: TF Nutrition Support: Glucerna at 70 ml/hr Flush 100 ml q4hr Kcal 2,016 Protein (gm) 100 Fluid (mL) 1,352 Goal #1 TF start/tolerance Follow-Up By: 12/03/18 Additional Comments F/U for TF start/tolerance
--- NOTE | 2018-11-30 11:19 | Consultation ---
History of Present Illness - Reason for Consult Consult date: 11/30/18 - History of Present Illness 73 yo M PMHx HIV, HTN, HLD admitted with AMS. He was noted to be non-responsive at his nursing facility, but it is unclear how long he was like that for. There were no known preceeding fevers or chills, or any other symptoms. The rest of his subjective history is unclear. He was found to be in respiratory distress and was admitted to the ICU. He was recently admitted for similar complaints which was attributed to his microvascular cerebral disease. His more recent viral load is unknown, but a genotype was unable to be run, indicating the VL was most likely less than 1000, if not undetectable. His CD4 during that admission was 243 with a 35%. His regimen is abacavir, lamivudine, raltegravir, and zidovudine. Afebrile since admission though with some periods of hypothermia. His white count is 3. He is currently receiving cefepime and vancomycin. Imaging personally reviewed: Abdominal XR: No abnormality CXR: Minimal interstitial edema Head CT: Ongoing extensive microvascular angiopathy Past History Past Medical History: hypertension, hyperlipidemia, other (HIV) Past Surgical History: Other (Unable to obtain due to mental status) Social history: other (Unable to obtain due to mental status) Family history: other (Unable to obtain due to mental status) Medications and Allergies Allergies Allergy/AdvReac Type Severity Reaction Status Date / Time No Known Allergies Allergy Unverified 03/29/16 00:43 Home Medications Medication Instructions Recorded Confirmed Last Taken Type Aspirin [Aspirin BABY CHEW TAB] 81 mg PO QDAY #30 tab.chew 11/15/17 11/29/18 Unknown Rx Amlodipine Besylate 10 mg PO QDAY 05/21/18 11/29/18 Unknown History Carvedilol 6.25 mg PO BID 05/21/18 11/29/18 Unknown History Isentress 400 mg PO Q12HR 05/21/18 11/29/18 Unknown History Rosuvastatin Calcium 10 mg PO DAILY 05/21/18 11/29/18 Unknown History Memantine [Namenda] 5 mg PO QDAY #30 tablet 11/01/18 11/29/18 Unknown Rx Albuterol Sulfate [Albuterol 0.63% 0.63 mg IH TID PRN 30 Days ml 11/07/18 11/29/18 Unknown Rx NEBS] AtorvaSTATin [Lipitor] 20 mg PO QDAY #30 tablet 11/07/18 11/29/18 Unknown Rx Famotidine [Pepcid] 10 mg PO BID #60 tablet 11/07/18 11/29/18 Unknown Rx Ipratropium/Albuterol Sulfate 1 ampul IH Q6HR 30 Days ampul.neb 11/07/18 11/29/18 Unknown Rx [DUONEB *Not for PRN Use*] Tamsulosin [Flomax] 0.4 mg PO QHS #30 capsule 11/07/18 11/29/18 Unknown Rx Zidovudine 300 mg PO DAILY 11/09/18 11/29/18 Unknown History Insulin Regular, Human [HumuLIN R] 0 unit SQ AC #1 vial 11/12/18 11/29/18 Unknown Rx Active Meds: Active Medications Albuterol (Proventil) 2.5 mg IH Q4HRT PRN PRN Reason: Shortness Of Breath Albuterol/Ipratropium (Duoneb *Not For Prn Use*) 1 ampul IH QIDRT [facility] Last Admin: 11/30/18 07:47 Dose: 1 ampul Documented by: Lipase/Protease/Amylase (Harleen Manning 10,500 Unit) 1 each FEEDTUBE PRN PRN PRN Reason: For Clogged Feeding Tube Famotidine (Pepcid) 10 mg IV BID [facility] Last Admin: 11/30/18 09:38 Dose: 10 mg Documented by: Sodium Chloride (Nacl 0.45% 1000 Ml) 1,000 mls @ 100 mls/hr IV DIRECT KEN Stop: 12/04/18 11:00 Cefepime HCl (Maxipime/Ns 2 Gm/100 Ml) 2 gm in 100 mls @ 200 mls/hr IV Q24H KEN; Protocol Insulin Human Lispro (Humalog) 0 unit SUB-Q Q6HR KEN; Protocol Last Admin: 11/30/18 07:00 Dose: 3 unit Documented by: Metoclopramide HCl (Reglan) 5 mg IV Q6H PRN PRN Reason: Nausea And Vomiting Ondansetron HCl (Zofran) 4 mg IV Q8H PRN PRN Reason: Nausea And Vomiting Pneumococcal Polyvalent Vaccine (Pneumovax 23) 0.5 ml IM .ONCE ONE Stop: 11/30/18 12:01 Simple Syrup (Simple Syrup) 15 ml FEEDTUBE PRN PRN PRN Reason: Hypoglycemia Simple Syrup (Simple Syrup) 30 ml FEEDTUBE PRN PRN PRN Reason: Hypoglycemia Sodium Bicarbonate (Sodium Bicarbonate) 325 mg FEEDTUBE PRN PRN PRN Reason: For Clogged Feeding Tube Sodium Chloride (Sodium Chloride Flush Syringe 10 Ml) 10 ml IV BID KEN Sodium Chloride (Sodium Chloride Flush Syringe 10 Ml) 10 ml IV PRN PRN PRN Reason: LINE FLUSH Review of Systems ROS unobtainable: due to mental status Physical Examination - Physical Exam Narrative exam: Physical Exam: Constitutional: non-responsive. Head, Ears, Nose: Normocephalic, atraumatic. External ears, nose normal Eyes: Conjunctivae/corneas clear. No icterus. No ptosis. Neck: Supple, no meningeal signs Oral: intubated Cardiovascular: S1, S2 normal. Respiratory: Good air entry, clear to auscultation bilaterally GI: Soft, non-tender; bowel sounds normal. No peritoneal signs. Musculoskeletal: No pedal edema, no cyanosis. Skin: No rash or abscess Hem/Lymphatic: No palpable cervical or supraclavicular nodes. No lymphangitis Psych: Mood ok. Affect normal Neurological: Intubated, non-responsive - Constitutional Vitals: Vital Signs Temp Pulse Resp BP Pulse Ox 98.2 F 92 H 18 102/5 98 11/30/18 08:00 11/30/18 10:20 11/30/18 10:15 11/30/18 10:20 11/30/18 10:20 Temperature -Last 24 Hours Temperature 98.2 F Temperature 99.7 F Temperature 96.8 F Temperature 88.1 F Temperature 87.1 F Temperature 85.1 F Results - Labs CBC & Chem 7: 11/30/18 10:58 11/30/18 10:31 Labs: Abnormal lab results 11/29/18 11/29/18 11/29/18 Range/Units 13:07 13:39 13:39 WBC 3.2 L (4.5-11.0) K/mm3 RBC 2.76 L (3.65-5.03) M/mm3 Hgb 10.4 L (11.8-15.2) gm/dl Hct 32.1 L (35.5-45.6) % MCV 116 H (84-94) fl MCH 38 H (28-32) pg RDW 17.5 H (13.2-15.2) % Plt Count 48 L (140-440) K/mm3 Lymph % (Auto) 5.4 L (13.4-35.0) % Lymph # 0.2 L (1.2-5.4) K/mm3 Seg Neutrophils % 89.5 H (40.0-70.0) % POC ABG pH (7.35-7.45) POC ABG pO2 (80-105) ABG pO2 (80.0-90.0) mm Hg ABG HCO3 (20.0-26.0) mmol/L ABG O2 Saturation (95.0-99.0) % ABG Base Excess (-2.0-3.0) mmol/L ABG Hemoglobin (14.0-18.0) gm/dl VBG pH (7.320-7.420) Sodium 153 H (137-145) mmol/L Chloride 113.3 H (98-107) mmol/L Carbon Dioxide 21 L (22-30) mmol/L BUN 55 H (9-20) mg/dL Creatinine 2.4 H (0.8-1.5) mg/dL Glucose 260 H (75-100) mg/dL POC Glucose 289 H (70-105) AST 68 H (5-40) units/L Alkaline Phosphatase 239 H (35-129) units/L Total Creatine Kinase 243 H (55-170) units/L Troponin T 0.054 H (0.00-0.029) ng/mL Total Protein 5.8 L (6.3-8.2) g/dL Albumin 3.0 L (3.9-5) g/dL LDL Cholesterol Direct 30 L (50-130) mg/dL HDL Cholesterol 63 H (40-59) mg/dL Salicylates (2.8-20.0) mg/dL Acetaminophen (10.0-30.0) ug/mL 11/29/18 11/29/18 11/29/18 Range/Units 13:39 13:39 13:39 WBC (4.5-11.0) K/mm3 RBC (3.65-5.03) M/mm3 Hgb (11.8-15.2) gm/dl Hct (35.5-45.6) % MCV (84-94) fl MCH (28-32) pg RDW (13.2-15.2) % Plt Count (140-440) K/mm3 Lymph % (Auto) (13.4-35.0) % Lymph # (1.2-5.4) K/mm3 Seg Neutrophils % (40.0-70.0) % POC ABG pH (7.35-7.45) POC ABG pO2 (80-105) ABG pO2 (80.0-90.0) mm Hg ABG HCO3 (20.0-26.0) mmol/L ABG O2 Saturation (95.0-99.0) % ABG Base Excess (-2.0-3.0) mmol/L ABG Hemoglobin (14.0-18.0) gm/dl VBG pH 7.186 L* (7.320-7.420) Sodium (137-145) mmol/L Chloride (98-107) mmol/L Carbon Dioxide (22-30) mmol/L BUN (9-20) mg/dL Creatinine (0.8-1.5) mg/dL Glucose (75-100) mg/dL POC Glucose (70-105) AST (5-40) units/L Alkaline Phosphatase (35-129) units/L Total Creatine Kinase (55-170) units/L Troponin T (0.00-0.029) ng/mL Total Protein (6.3-8.2) g/dL Albumin (3.9-5) g/dL LDL Cholesterol Direct (50-130) mg/dL HDL Cholesterol (40-59) mg/dL Salicylates < 0.3 L (2.8-20.0) mg/dL Acetaminophen < 5.0 L (10.0-30.0) ug/mL 11/29/18 11/29/18 11/30/18 Range/Units 14:24 21:17 05:50 WBC (4.5-11.0) K/mm3 RBC (3.65-5.03) M/mm3 Hgb (11.8-15.2) gm/dl Hct (35.5-45.6) % MCV (84-94) fl MCH (28-32) pg RDW (13.2-15.2) % Plt Count (140-440) K/mm3 Lymph % (Auto) (13.4-35.0) % Lymph # (1.2-5.4) K/mm3 Seg Neutrophils % (40.0-70.0) % POC ABG pH 7.319 L (7.35-7.45) POC ABG pO2 126 H (80-105) ABG pO2 203.3 H (80.0-90.0) mm Hg ABG HCO3 18.5 L (20.0-26.0) mmol/L ABG O2 Saturation 99.3 H (95.0-99.0) % ABG Base Excess -6.2 L (-2.0-3.0) mmol/L ABG Hemoglobin 10.9 L (14.0-18.0) gm/dl VBG pH (7.320-7.420) Sodium (137-145) mmol/L Chloride (98-107) mmol/L Carbon Dioxide (22-30) mmol/L BUN (9-20) mg/dL Creatinine (0.8-1.5) mg/dL Glucose (75-100) mg/dL POC Glucose 242 H (70-105) AST (5-40) units/L Alkaline Phosphatase (35-129) units/L Total Creatine Kinase (55-170) units/L Troponin T (0.00-0.029) ng/mL Total Protein (6.3-8.2) g/dL Albumin (3.9-5) g/dL LDL Cholesterol Direct (50-130) mg/dL HDL Cholesterol (40-59) mg/dL Salicylates (2.8-20.0) mg/dL Acetaminophen (10.0-30.0) ug/mL 11/30/18 Range/Units 08:52 WBC (4.5-11.0) K/mm3 RBC (3.65-5.03) M/mm3 Hgb (11.8-15.2) gm/dl Hct (35.5-45.6) % MCV (84-94) fl MCH (28-32) pg RDW (13.2-15.2) % Plt Count (140-440) K/mm3 Lymph % (Auto) (13.4-35.0) % Lymph # (1.2-5.4) K/mm3 Seg Neutrophils % (40.0-70.0) % POC ABG pH (7.35-7.45) POC ABG pO2 (80-105) ABG pO2 (80.0-90.0) mm Hg ABG HCO3 (20.0-26.0) mmol/L ABG O2 Saturation (95.0-99.0) % ABG Base Excess (-2.0-3.0) mmol/L ABG Hemoglobin (14.0-18.0) gm/dl VBG pH (7.320-7.420) Sodium (137-145) mmol/L Chloride (98-107) mmol/L Carbon Dioxide (22-30) mmol/L BUN (9-20) mg/dL Creatinine (0.8-1.5) mg/dL Glucose (75-100) mg/dL POC Glucose 234 H (70-105) AST (5-40) units/L Alkaline Phosphatase (35-129) units/L Total Creatine Kinase (55-170) units/L Troponin T (0.00-0.029) ng/mL Total Protein (6.3-8.2) g/dL Albumin (3.9-5) g/dL LDL Cholesterol Direct (50-130) mg/dL HDL Cholesterol (40-59) mg/dL Salicylates (2.8-20.0) mg/dL Acetaminophen (10.0-30.0) ug/mL Assessment and Plan Cultures: 11/29 BCx - NGTD 11/29 UCx - NGTD A/P: 73 yo M PMHx HIV, HTN, HLD admitted with AMS 1. SIRS possible sepsis - present on admission with neutropenia and hypothermia. Unclear source as yet. Aside from altered mental status no obvious symptoms. Recurrent hospitalizations for similar. 2. Altered mental status - Possibly due to ongoing microvascular disease with ischemia. Able to passively move neck on exam, but difficult to assess for meningismus. Continue empiric antibiotics for now with cefepime and vancomycin and monitor for improvement given positive SIRS criteria and rapid deterioration. 3. HIV - Well controlled at recent visit. Accidentally ordered qualitative VL last time, but genotype was unable to be performed thus meaning the VL was at least under 1000, and most likely undetectable. CD4 ~ 250. Continue home regimen of raltegravir, lamivudine, abacavir, zidovudine. 4. CONNIE 5. HTN 6. HLD Recs: - continue cefepime 2g q12h - continue vancomycin dosed per pharmacy. Appreciate their assistance. Goal trough 15-20. - restarted his abacavir, raltegravir, zidovudine. Renally dosed lamivudine to 100mg daily. Thank you for the consult, we will continue to follow. Belkis Alcantara MD [facility] M: [phone] O: [phone] F: [phone]
--- NOTE | 2018-11-30 11:42 | Consultation ---
History of Present Illness Consult date: 11/30/18 Requesting physician: ETHEL RUTLEDGE III Reason for consult: other History of present illness: 73 y/o male admitted with altered mental status from an outside long-term. Per the ED, GCS of 5 and they were concerned that the patient could not protect his airway. They electively intubated him and then started him on a continuous infusion of Fentanyl. Fentanyl drip is now off and patient is not responsive. He has several other comorbidities including HIV and dementia. No family is present at the bedside and none were present in the ED. He has been to this hospital several times before with his last admission being related to hypoglycemia. Past History Past Medical History: hypertension, hyperlipidemia, other (HIV) Past Surgical History: Other (Unable to obtain due to mental status) Social history: other (Unable to obtain due to mental status) Family history: other (Unable to obtain due to mental status) Medications and Allergies Allergies Allergy/AdvReac Type Severity Reaction Status Date / Time No Known Allergies Allergy Unverified 03/29/16 00:43 Home Medications Medication Instructions Recorded Confirmed Last Taken Type Aspirin [Aspirin BABY CHEW TAB] 81 mg PO QDAY #30 tab.chew 11/15/17 11/29/18 Unknown Rx Amlodipine Besylate 10 mg PO QDAY 05/21/18 11/29/18 Unknown History Carvedilol 6.25 mg PO BID 05/21/18 11/29/18 Unknown History Isentress 400 mg PO Q12HR 05/21/18 11/29/18 Unknown History Rosuvastatin Calcium 10 mg PO DAILY 05/21/18 11/29/18 Unknown History Memantine [Namenda] 5 mg PO QDAY #30 tablet 11/01/18 11/29/18 Unknown Rx Albuterol Sulfate [Albuterol 0.63% 0.63 mg IH TID PRN 30 Days ml 11/07/18 11/29/18 Unknown Rx NEBS] AtorvaSTATin [Lipitor] 20 mg PO QDAY #30 tablet 11/07/18 11/29/18 Unknown Rx Famotidine [Pepcid] 10 mg PO BID #60 tablet 11/07/18 11/29/18 Unknown Rx Ipratropium/Albuterol Sulfate 1 ampul IH Q6HR 30 Days ampul.neb 11/07/18 11/29/18 Unknown Rx [DUONEB *Not for PRN Use*] Tamsulosin [Flomax] 0.4 mg PO QHS #30 capsule 11/07/18 11/29/18 Unknown Rx Zidovudine 300 mg PO DAILY 11/09/18 11/29/18 Unknown History Insulin Regular, Human [HumuLIN R] 0 unit SQ AC #1 vial 11/12/18 11/29/18 Unknown Rx Active Meds: Active Medications Albuterol (Proventil) 2.5 mg IH Q4HRT PRN PRN Reason: Shortness Of Breath Albuterol/Ipratropium (Duoneb *Not For Prn Use*) 1 ampul IH QIDRT [facility] Last Admin: 11/30/18 07:47 Dose: 1 ampul Documented by: Lipase/Protease/Amylase (Harleen Manning 10,500 Unit) 1 each FEEDTUBE PRN PRN PRN Reason: For Clogged Feeding Tube Famotidine (Pepcid) 10 mg IV BID [facility] Last Admin: 11/30/18 09:38 Dose: 10 mg Documented by: Sodium Chloride (Nacl 0.45% 1000 Ml) 1,000 mls @ 100 mls/hr IV DIRECT KEN Stop: 12/04/18 11:00 Cefepime HCl (Maxipime/Ns 2 Gm/100 Ml) 2 gm in 100 mls @ 200 mls/hr IV Q24H KEN; Protocol Insulin Human Lispro (Humalog) 0 unit SUB-Q Q6HR [facility]; Protocol Last Admin: 11/30/18 07:00 Dose: 3 unit Documented by: Metoclopramide HCl (Reglan) 5 mg IV Q6H PRN PRN Reason: Nausea And Vomiting Ondansetron HCl (Zofran) 4 mg IV Q8H PRN PRN Reason: Nausea And Vomiting Pneumococcal Polyvalent Vaccine (Pneumovax 23) 0.5 ml IM .ONCE ONE Stop: 11/30/18 12:01 Simple Syrup (Simple Syrup) 30 ml FEEDTUBE PRN PRN PRN Reason: Hypoglycemia Simple Syrup (Simple Syrup) 15 ml FEEDTUBE PRN PRN PRN Reason: Hypoglycemia Simple Syrup (Simple Syrup) 30 ml FEEDTUBE PRN PRN PRN Reason: Hypoglycemia Sodium Bicarbonate (Sodium Bicarbonate) 325 mg FEEDTUBE PRN PRN PRN Reason: For Clogged Feeding Tube Sodium Bicarbonate (Sodium Bicarbonate) 325 mg FEEDTUBE PRN PRN PRN Reason: For Clogged Feeding Tube Sodium Chloride (Sodium Chloride Flush Syringe 10 Ml) 10 ml IV BID KEN Sodium Chloride (Sodium Chloride Flush Syringe 10 Ml) 10 ml IV PRN PRN PRN Reason: LINE FLUSH Review of Systems ROS unobtainable: due to endotracheal tube, due to mental status Physical Examination Vital signs: Vital Signs Pulse Resp BP Pulse Ox 79 22 106/68 96 11/29/18 12:51 11/29/18 12:51 11/29/18 12:51 11/29/18 12:51 General appearance: comatose Eyes: icteric, other (left eye open only) ENT: other (orally intubated and sedated) Neck: supple Effort: normal Ascultation: Bilateral: clear, diminished breath sounds Percussion: Bilateral: not dull Gastrointestinal: hypoactive bowel sounds, soft unable to assess Results - Laboratory Findings CBC and BMP: 11/29/18 13:39 11/30/18 10:31 ABG POC ABG pH 7.319 (7.35-7.45) L 11/29/18 14:24 ABG pH 7.356 pH Units (7.350-7.450) 11/30/18 05:50 POC ABG pCO2 39.5 (35-45) 11/29/18 14:24 ABG pCO2 33.9 mm Hg 11/30/18 05:50 POC ABG pO2 126 (80-105) H 11/29/18 14:24 ABG pO2 203.3 mm Hg (80.0-90.0) H 11/30/18 05:50 POC ABG HCO3 20.3 (22-26 mml/L) 11/29/18 14:24 POC ABG Total CO2 21 (23-27mmol/L) 11/29/18 14:24 POC ABG O2 Sat 99 11/29/18 14:24 ABG O2 Saturation 99.3 % (95.0-99.0) H 11/30/18 05:50 Abnormal lab findings: Abnormal Labs 11/29/18 11/29/18 11/29/18 13:07 13:39 13:39 WBC 3.2 L RBC 2.76 L Hgb 10.4 L Hct 32.1 L MCV 116 H MCH 38 H RDW 17.5 H Plt Count 48 L Lymph % (Auto) 5.4 L Lymph # 0.2 L Seg Neutrophils % 89.5 H POC ABG pH POC ABG pO2 ABG pO2 ABG HCO3 ABG O2 Saturation ABG Base Excess ABG Hemoglobin VBG pH Sodium 153 H Chloride 113.3 H Carbon Dioxide 21 L BUN 55 H Creatinine 2.4 H Glucose 260 H POC Glucose 289 H AST 68 H Alkaline Phosphatase 239 H Total Creatine Kinase 243 H Troponin T 0.054 H Total Protein 5.8 L Albumin 3.0 L LDL Cholesterol Direct 30 L HDL Cholesterol 63 H Salicylates Acetaminophen 11/29/18 11/29/18 11/29/18 13:39 13:39 13:39 WBC RBC Hgb Hct MCV MCH RDW Plt Count Lymph % (Auto) Lymph # Seg Neutrophils % POC ABG pH POC ABG pO2 ABG pO2 ABG HCO3 ABG O2 Saturation ABG Base Excess ABG Hemoglobin VBG pH 7.186 L* Sodium Chloride Carbon Dioxide BUN Creatinine Glucose POC Glucose AST Alkaline Phosphatase Total Creatine Kinase Troponin T Total Protein Albumin LDL Cholesterol Direct HDL Cholesterol Salicylates < 0.3 L Acetaminophen < 5.0 L 11/29/18 11/29/18 11/30/18 14:24 21:17 05:50 WBC RBC Hgb Hct MCV MCH RDW Plt Count Lymph % (Auto) Lymph # Seg Neutrophils % POC ABG pH 7.319 L POC ABG pO2 126 H ABG pO2 203.3 H ABG HCO3 18.5 L ABG O2 Saturation 99.3 H ABG Base Excess -6.2 L ABG Hemoglobin 10.9 L VBG pH Sodium Chloride Carbon Dioxide BUN Creatinine Glucose POC Glucose 242 H AST Alkaline Phosphatase Total Creatine Kinase Troponin T Total Protein Albumin LDL Cholesterol Direct HDL Cholesterol Salicylates Acetaminophen 11/30/18 08:52 WBC RBC Hgb Hct MCV MCH RDW Plt Count Lymph % (Auto) Lymph # Seg Neutrophils % POC ABG pH POC ABG pO2 ABG pO2 ABG HCO3 ABG O2 Saturation ABG Base Excess ABG Hemoglobin VBG pH Sodium Chloride Carbon Dioxide BUN Creatinine Glucose POC Glucose 234 H AST Alkaline Phosphatase Total Creatine Kinase Troponin T Total Protein Albumin LDL Cholesterol Direct HDL Cholesterol Salicylates Acetaminophen - Diagnostic Findings Chest x-ray: image reviewed (Cardiomegaly with pulmonary edema) Assessment and Plan 73 y/o male who presents with altered mental state, hypothermia, renal failure and hypernatremia and trop leak 1. Resp-Intubated now. Based on documentation, patient was intubated for airway protection. Unsure of the need for continuous sedation so discontinued. Also discontinued all other mind altering medications. Currently on PSV now but likely not ready for extubation. 2. Neuro-never seen patient before so unsure of current baseline status. Per notes from before, patient was speaking. Unknown amount of down time and no documentation of sugar on arrival of EMS. Sugars stable to elevated here. Head CT shows severe microangiopathy which at least per report is the same. Suggest neurology consult, may need EEG as well and possible MRI. 3. ID-patient was hypothermic on arrival, started on a bear hugger which has now been weaned off. Started on broad spec abx therapy with Vanc and Cefepime. Will continue those for now. Cultures are pending. UA was clean. 4. Renal-Appears to be chronic renal failure when reviewing labs from before. Will continue to monitor. Asked nursing to remove de la rosa 5. Electrolytes- patient has a calculated free water of deficit of about 4.4 liters. At this time suggest changing the 1/2 normal to D5W water and can increase insulin as needed 6. Overall prognosis is guarded. Given multiple comorbidites, the prognosis is likely going to be poor. Follow up neuro recs and no further sedation. CCT 31 minutes.
[2018-11-30 11:55] LABS: Calcium 8.2 mg/dL (8.4-10.2)
[2018-11-30] MEDS ORDERED: PNEUMOVAX 23 IM ONE (12:00)
[2018-11-30 12:17] LABS: Hematocrit 35.3 % (35.5-45.6); Hemoglobin 11.5 gm/dl (11.8-15.2); Mean Corpuscular HGB Conc 33 % (32-34); Red Blood Count 3.05 M/mm3 (3.65-5.03); Red Cell Distribution Width 17.2 % (13.2-15.2)
[2018-11-30 12:20] LABS: Mean Corpuscular Volume 116 fl (84-94); Platelet Count 43 K/mm3 (140-440)
--- NOTE | 2018-11-30 13:09 | Consultation ---
History of Present Illness Consult date: 11/30/18 Consult reason: congestive heart failure History of present illness: Patient is a 73-year old male who was brought in from the [facility] after he was found unresponsive. Patient was electively intubated in the emergency department. Patient was also hypothermic on arrival, started on a bear hugger. Initial labs revealed sodium 153 and a creatinine 2.4. Head CT scan was negative for any acute process. Chest x-ray is negative. An EKG is sinus bradycardia, left bundle branch block and a prolonged QTc. His last cardiac workup was done at this hospital one month ago. An echocardiogram revealed a dilated cardiomyopathy with a ejection fraction 15- 20%. The duration is uncertain. Patient declined further cardiac testing and was managed medically. Past History Past Medical History: hypertension, hyperlipidemia, other (HIV) Past Surgical History: Other (Unable to obtain due to mental status) Social history: other (Unable to obtain due to mental status) Family history: other (Unable to obtain due to mental status) Medications and Allergies Allergies Allergy/AdvReac Type Severity Reaction Status Date / Time No Known Allergies Allergy Unverified 03/29/16 00:43 Home Medications Medication Instructions Recorded Confirmed Last Taken Type Aspirin [Aspirin BABY CHEW TAB] 81 mg PO QDAY #30 tab.chew 11/15/17 11/29/18 Unknown Rx Amlodipine Besylate 10 mg PO QDAY 05/21/18 11/29/18 Unknown History Carvedilol 6.25 mg PO BID 05/21/18 11/29/18 Unknown History Isentress 400 mg PO Q12HR 05/21/18 11/29/18 Unknown History Rosuvastatin Calcium 10 mg PO DAILY 05/21/18 11/29/18 Unknown History Memantine [Namenda] 5 mg PO QDAY #30 tablet 11/01/18 11/29/18 Unknown Rx Albuterol Sulfate [Albuterol 0.63% 0.63 mg IH TID PRN 30 Days ml 11/07/18 11/29/18 Unknown Rx NEBS] AtorvaSTATin [Lipitor] 20 mg PO QDAY #30 tablet 11/07/18 11/29/18 Unknown Rx Famotidine [Pepcid] 10 mg PO BID #60 tablet 11/07/18 11/29/18 Unknown Rx Ipratropium/Albuterol Sulfate 1 ampul IH Q6HR 30 Days ampul.neb 11/07/18 11/29/18 Unknown Rx [DUONEB *Not for PRN Use*] Tamsulosin [Flomax] 0.4 mg PO QHS #30 capsule 11/07/18 11/29/18 Unknown Rx Zidovudine 300 mg PO DAILY 11/09/18 11/29/18 Unknown History Insulin Regular, Human [HumuLIN R] 0 unit SQ AC #1 vial 11/12/18 11/29/18 Unknown Rx Active Meds: Active Medications Albuterol (Proventil) 2.5 mg IH Q4HRT PRN PRN Reason: Shortness Of Breath Albuterol/Ipratropium (Duoneb *Not For Prn Use*) 1 ampul IH QIDRT COUNT INCLUDES THE [facility] Last Admin: 11/30/18 11:48 Dose: 1 ampul Documented by: Lipase/Protease/Amylase (Harleen Manning 10,500 Unit) 1 each FEEDTUBE PRN PRN PRN Reason: For Clogged Feeding Tube Famotidine (Pepcid) 10 mg IV BID COUNT INCLUDES THE [facility] Last Admin: 11/30/18 09:38 Dose: 10 mg Documented by: Sodium Chloride (Nacl 0.45% 1000 Ml) 1,000 mls @ 100 mls/hr IV DIRECT KEN Stop: 12/04/18 11:00 Cefepime HCl (Maxipime/Ns 2 Gm/100 Ml) 2 gm in 100 mls @ 200 mls/hr IV Q24H KEN; Protocol Insulin Human Lispro (Humalog) 0 unit SUB-Q Q6HR COUNT INCLUDES THE [facility]; Protocol Last Admin: 11/30/18 07:00 Dose: 3 unit Documented by: Metoclopramide HCl (Reglan) 5 mg IV Q6H PRN PRN Reason: Nausea And Vomiting Ondansetron HCl (Zofran) 4 mg IV Q8H PRN PRN Reason: Nausea And Vomiting Simple Syrup (Simple Syrup) 15 ml FEEDTUBE PRN PRN PRN Reason: Hypoglycemia Simple Syrup (Simple Syrup) 30 ml FEEDTUBE PRN PRN PRN Reason: Hypoglycemia Sodium Bicarbonate (Sodium Bicarbonate) 325 mg FEEDTUBE PRN PRN PRN Reason: For Clogged Feeding Tube Sodium Chloride (Sodium Chloride Flush Syringe 10 Ml) 10 ml IV BID COUNT INCLUDES THE [facility] Sodium Chloride (Sodium Chloride Flush Syringe 10 Ml) 10 ml IV PRN PRN PRN Reason: LINE FLUSH Physical Examination Vital Signs Pulse Resp BP Pulse Ox 79 22 106/68 96 11/29/18 12:51 11/29/18 12:51 11/29/18 12:51 11/29/18 12:51 General appearance: other (intubated on cpap) Cardiac: Positive: Reg Rate and Rhythm Results 11/30/18 10:58 11/30/18 10:31 Cardiac Enzymes 11/29/18 Range/Units 13:39 AST 68 H (5-40) units/L Lipids 11/29/18 Range/Units 13:39 Triglycerides 68 (2-149) mg/dL Cholesterol 95 (50-199) mg/dL HDL Cholesterol 63 H (40-59) mg/dL Cholesterol/HDL Ratio 1.50 % CBC 11/29/18 11/30/18 Range/Units 13:39 10:58 WBC 3.2 L 6.0 (4.5-11.0) K/mm3 RBC 2.76 L 3.05 L (3.65-5.03) M/mm3 Hgb 10.4 L 11.5 L (11.8-15.2) gm/dl Hct 32.1 L 35.3 L (35.5-45.6) % Plt Count 48 L 43 L (140-440) K/mm3 Lymph # 0.2 L (1.2-5.4) K/mm3 [place] # 0.2 (0.0-0.8) K/mm3 Eos # 0.0 (0.0-0.4) K/mm3 Baso # 0.0 (0.0-0.1) K/mm3 Comprehensive Metabolic Panel 11/29/18 11/30/18 Range/Units 13:39 10:31 Sodium 153 H 153 H (137-145) mmol/L Potassium 4.8 4.1 (3.6-5.0) mmol/L Chloride 113.3 H 117.2 H (98-107) mmol/L Carbon Dioxide 21 L 18 L (22-30) mmol/L BUN 55 H 60 H (9-20) mg/dL Creatinine 2.4 H 2.8 H (0.8-1.5) mg/dL Glucose 260 H 216 H (75-100) mg/dL Calcium 8.7 8.2 L (8.4-10.2) mg/dL AST 68 H (5-40) units/L ALT 54 (7-56) units/L Alkaline Phosphatase 239 H (35-129) units/L Total Protein 5.8 L (6.3-8.2) g/dL Albumin 3.0 L (3.9-5) g/dL Assessment and Plan Altered mental status Hypothermia Hx of CVA Non-specific troponin Cardiomyopathy, EF 15-20% Moderate to severe MR and TR Renal failure HIV There is no evidence of CHF on exam. We will recommend conservative medical therapy for underlying CMP.
[2018-11-30 15:48] LABS: Creatinine,Urine 173.8 mg/dL (0.1-20.0)
[2018-11-30] MEDS: NACL 0.45% 1000 ML 1,000 ML IV SCH (15:52)
[2018-11-30] MEDS: EPIVIR PO SCH (16:00)
[2018-11-30] MEDS: RETROVIR PO SCH ×2 (16:00→22:22)
[2018-11-30] MEDS: ISENTRESS PO SCH ×2 (16:00→22:20)
[2018-11-30] MEDS: ZIAGEN PO SCH (16:00)
[2018-11-30] MEDS: MAXIPIME/NS 2 GM/100 ML 2 GM/100 ML BAG IV SCH (22:21)
[2018-12-01] MEDS: HumaLOG SUB-Q SCH ×4 (00:28→18:00)
[2018-12-01] MEDS ORDERED: VANCOMYCIN 1,250 MG in NACL 0.9% 250ML 250 ML IV SCH (02:00)
[2018-12-01 05:17] LABS: ABG Base Excess -6.1 mmol/L (-2.0-3.0); ABG HCO3 17.7 mmol/L (20.0-26.0); ABG Methemoglobin 0.6 % (0.0-1.5); ABG Oxygen Saturation 97.3 % (95.0-99.0); ABG PCO2 29.5 mm Hg; ABG PH 7.394 pH Units (7.350-7.450); ABG PO2 91.9 mm Hg (80.0-90.0)
[2018-12-01 05:42] LABS: Hematocrit 35.3 % (35.5-45.6); Hemoglobin 11.7 gm/dl (11.8-15.2); Mean Corpuscular HGB Conc 33 % (32-34); Red Blood Count 3.11 M/mm3 (3.65-5.03); Red Cell Distribution Width 16.9 % (13.2-15.2)
[2018-12-01 05:51] LABS: Mean Corpuscular Volume 113 fl (84-94); Platelet Count 43 K/mm3 (140-440)
[2018-12-01 06:01] LABS: Calcium 8.2 mg/dL (8.4-10.2)
--- NOTE | 2018-12-01 07:37 | Progress Note ---
Assessment and Plan 1. Acute kidney injury: Vasomotor CONNIE superimposed on CKD in the setting of hypotension. Renal US negative for hydro. Continue IV fluids. Monitor renal function. Avoid nephrotoxic agents. Meds dosage based on GFR. 2. FEN: Hypernatremia, increase free water flushes. Monitor lytes. 3. Acute hypoxic respiratory failure: Intubated on vent. 4. Acute Metabolic Encephalopathy. 5. Elevated troponin. 6. Type 2 DM. Subjective Date of service: 12/01/18 Interval history: Patient was seen and examined at the bedside. Objective - Vital Signs Vital signs: Vital Signs - 12hr 11/30/18 11/30/18 11/30/18 19:45 19:47 19:52 Temperature 98.5 F Pulse Rate 97 H 95 H Pulse Rate [ Anterior Bilateral Throughout] Pulse Rate [ Apical] Respiratory 16 Rate Respiratory Rate [Anterior Bilateral Throughout] Blood Pressure 96/67 96/67 O2 Sat by Pulse 99 Oximetry 11/30/18 11/30/18 11/30/18 20:00 20:15 20:30 Temperature Pulse Rate 97 H 97 H 99 H Pulse Rate [ Anterior Bilateral Throughout] Pulse Rate [ 97 H Apical] Respiratory 18 18 19 Rate Respiratory Rate [Anterior Bilateral Throughout] Blood Pressure 99/67 97/64 101/69 O2 Sat by Pulse 97 99 Oximetry 11/30/18 11/30/18 11/30/18 20:45 21:00 21:01 Temperature Pulse Rate 98 H 99 H Pulse Rate [ 95 H Anterior Bilateral Throughout] Pulse Rate [ Apical] Respiratory 19 17 Rate Respiratory 18 Rate [Anterior Bilateral Throughout] Blood Pressure 101/70 100/70 O2 Sat by Pulse 99 99 Oximetry 11/30/18 11/30/18 11/30/18 21:15 21:30 21:45 Temperature Pulse Rate 100 H 99 H 106 H Pulse Rate [ Anterior Bilateral Throughout] Pulse Rate [ Apical] Respiratory 17 17 21 Rate Respiratory Rate [Anterior Bilateral Throughout] Blood Pressure 102/71 99/68 102/71 O2 Sat by Pulse 99 99 Oximetry 11/30/18 11/30/18 11/30/18 22:00 22:15 22:30 Temperature Pulse Rate 99 H 97 H 100 H Pulse Rate [ Anterior Bilateral Throughout] Pulse Rate [ Apical] Respiratory 24 19 23 Rate Respiratory Rate [Anterior Bilateral Throughout] Blood Pressure 111/74 101/73 99/71 O2 Sat by Pulse 100 98 99 Oximetry 11/30/18 11/30/18 11/30/18 22:45 23:00 23:15 Temperature Pulse Rate 88 84 95 H Pulse Rate [ Anterior Bilateral Throughout] Pulse Rate [ Apical] Respiratory 25 H 18 18 Rate Respiratory Rate [Anterior Bilateral Throughout] Blood Pressure 92/65 92/63 91/65 O2 Sat by Pulse 99 Oximetry 11/30/18 11/30/18 11/30/18 23:29 23:30 23:45 Temperature 98.9 F Pulse Rate 91 H 95 H Pulse Rate [ Anterior Bilateral Throughout] Pulse Rate [ Apical] Respiratory 16 16 Rate Respiratory Rate [Anterior Bilateral Throughout] Blood Pressure 91/68 96/70 O2 Sat by Pulse 99 Oximetry 11/30/18 11/30/18 12/01/18 23:47 23:57 00:00 Temperature Pulse Rate 94 H 92 H 95 H Pulse Rate [ Anterior Bilateral Throughout] Pulse Rate [ 96 H Apical] Respiratory 17 18 Rate Respiratory Rate [Anterior Bilateral Throughout] Blood Pressure 96/70 96/70 93/66 O2 Sat by Pulse 100 99 100 Oximetry 12/01/18 12/01/18 12/01/18 00:02 00:15 00:30 Temperature Pulse Rate 95 H 93 H 94 H Pulse Rate [ Anterior Bilateral Throughout] Pulse Rate [ Apical] Respiratory 18 18 19 Rate Respiratory Rate [Anterior Bilateral Throughout] Blood Pressure 93/66 95/68 94/68 O2 Sat by Pulse 100 99 Oximetry 12/01/18 12/01/18 12/01/18 00:45 01:00 01:15 Temperature Pulse Rate 92 H 94 H 93 H Pulse Rate [ Anterior Bilateral Throughout] Pulse Rate [ Apical] Respiratory 18 18 18 Rate Respiratory Rate [Anterior Bilateral Throughout] Blood Pressure 97/68 97/70 98/71 O2 Sat by Pulse 99 99 Oximetry 12/01/18 12/01/18 12/01/18 01:30 01:45 02:00 Temperature Pulse Rate 93 H 95 H 93 H Pulse Rate [ Anterior Bilateral Throughout] Pulse Rate [ Apical] Respiratory 16 16 18 Rate Respiratory Rate [Anterior Bilateral Throughout] Blood Pressure 97/70 99/70 101/70 O2 Sat by Pulse 99 Oximetry 12/01/18 12/01/18 12/01/18 02:15 02:30 02:45 Temperature Pulse Rate 94 H 94 H 91 H Pulse Rate [ Anterior Bilateral Throughout] Pulse Rate [ Apical] Respiratory 17 18 18 Rate Respiratory Rate [Anterior Bilateral Throughout] Blood Pressure 101/71 98/69 100/70 O2 Sat by Pulse Oximetry 12/01/18 12/01/18 12/01/18 03:00 03:08 03:15 Temperature Pulse Rate 94 H 94 H 94 H Pulse Rate [ Anterior Bilateral Throughout] Pulse Rate [ Apical] Respiratory 19 20 Rate Respiratory Rate [Anterior Bilateral Throughout] Blood Pressure 100/72 100/72 98/74 O2 Sat by Pulse 99 100 99 Oximetry 12/01/18 12/01/18 12/01/18 03:30 03:45 04:00 Temperature 98.9 F Pulse Rate 94 H 91 H 94 H Pulse Rate [ Anterior Bilateral Throughout] Pulse Rate [ 93 H Apical] Respiratory 19 18 17 Rate Respiratory Rate [Anterior Bilateral Throughout] Blood Pressure 102/73 101/72 102/73 O2 Sat by Pulse 100 99 Oximetry 12/01/18 12/01/18 12/01/18 04:15 04:30 04:45 Temperature Pulse Rate 93 H 93 H 93 H Pulse Rate [ Anterior Bilateral Throughout] Pulse Rate [ Apical] Respiratory 19 19 16 Rate Respiratory Rate [Anterior Bilateral Throughout] Blood Pressure 99/74 101/73 104/73 O2 Sat by Pulse 100 99 Oximetry 12/01/18 12/01/18 12/01/18 05:00 05:15 05:30 Temperature Pulse Rate 90 90 89 Pulse Rate [ Anterior Bilateral Throughout] Pulse Rate [ Apical] Respiratory 16 17 18 Rate Respiratory Rate [Anterior Bilateral Throughout] Blood Pressure 101/72 102/72 102/71 O2 Sat by Pulse 99 99 99 Oximetry 12/01/18 12/01/18 05:45 06:00 Temperature Pulse Rate 93 H 92 H Pulse Rate [ Anterior Bilateral Throughout] Pulse Rate [ Apical] Respiratory 20 18 Rate Respiratory Rate [Anterior Bilateral Throughout] Blood Pressure 96/57 109/78 O2 Sat by Pulse 100 100 Oximetry - General Appearance General appearance: well-developed, appears stated age, intubated, other (on vent) EENT: ATNC, PERRL Neck: other (Trachea midline) Respiratory: Present: Clear to Ascultation Cardiology: regular, S1S2, no murmurs Gastrointestinal: normoactive bowel sounds, no tenderness Integumentary: other (R leg dressing noted) Neurologic: other (grimaces) Musculoskeletal: other (1+ LE edema noted) - Lab 12/01/18 04:08 12/01/18 04:08 Most recent lab results ABG pH 7.394 pH Units (7.350-7.450) 12/01/18 04:55 ABG pCO2 29.5 mm Hg 12/01/18 04:55 ABG pO2 91.9 mm Hg (80.0-90.0) H 12/01/18 04:55 ABG HCO3 17.7 mmol/L (20.0-26.0) L 12/01/18 04:55 ABG O2 Saturation 97.3 % (95.0-99.0) 12/01/18 04:55 Calcium 8.2 mg/dL (8.4-10.2) L 12/01/18 04:08 173.8 mg/dL (0.1-20.0) H 11/30/18 14:20 18 mmol/L 11/30/18 14:20 Medications & Allergies - Medications Allergies/Adverse Reactions: Allergies No Known Allergies Allergy (Unverified 03/29/16 00:43) Home Medications: Home Medications Medication Instructions Recorded Confirmed Last Taken Type Aspirin [Aspirin BABY CHEW TAB] 81 mg PO QDAY #30 tab.chew 11/15/17 11/29/18 Unknown Rx Amlodipine Besylate 10 mg PO QDAY 05/21/18 11/29/18 Unknown History Carvedilol 6.25 mg PO BID 05/21/18 11/29/18 Unknown History Isentress 400 mg PO Q12HR 05/21/18 11/29/18 Unknown History Rosuvastatin Calcium 10 mg PO DAILY 05/21/18 11/29/18 Unknown History Memantine [Namenda] 5 mg PO QDAY #30 tablet 11/01/18 11/29/18 Unknown Rx Albuterol Sulfate [Albuterol 0.63% 0.63 mg IH TID PRN 30 Days ml 11/07/18 11/29/18 Unknown Rx NEBS] AtorvaSTATin [Lipitor] 20 mg PO QDAY #30 tablet 11/07/18 11/29/18 Unknown Rx Famotidine [Pepcid] 10 mg PO BID #60 tablet 11/07/18 11/29/18 Unknown Rx Ipratropium/Albuterol Sulfate 1 ampul IH Q6HR 30 Days ampul.neb 11/07/18 11/29/18 Unknown Rx [DUONEB *Not for PRN Use*] Tamsulosin [Flomax] 0.4 mg PO QHS #30 capsule 11/07/18 11/29/18 Unknown Rx Zidovudine 300 mg PO DAILY 11/09/18 11/29/18 Unknown History Insulin Regular, Human [HumuLIN R] 0 unit SQ AC #1 vial 11/12/18 11/29/18 Unknown Rx Active Medications: Generic Name Dose Route Start Last Admin Trade Name Freq PRN Reason Stop Dose Admin Abacavir Sulfate 600 mg 11/30/18 16:00 11/30/18 16:00 Ziagen PO 600 mg DAILY KEN Administration Albuterol 2.5 mg 11/30/18 00:17 Proventil IH Q4HRT PRN Shortness Of Breath Albuterol/Ipratropium 1 ampul 11/30/18 08:00 11/30/18 19:50 Duoneb *Not For Prn Use* IH 1 ampul QIDRT KEN Administration Lipase/Protease/Amylase 1 each 11/30/18 11:24 Pancreaze 10,500 Unit FEEDTUBE PRN PRN For Clogged Feeding Tube Famotidine 10 mg 11/30/18 10:00 11/30/18 22:20 Pepcid IV 10 mg BID KEN Administration Sodium Chloride 1,000 mls @ 100 mls/hr 11/30/18 07:00 11/30/18 15:52 Nacl 0.45% 1000 Ml IV 12/04/18 11:00 100 mls/hr DIRECT KEN Administration Cefepime HCl 2 gm in 100 mls @ 200 mls/hr 11/30/18 22:00 11/30/18 22:21 Maxipime/Ns 2 Gm/100 Ml IV 200 mls/hr Q24H KEN Administration Protocol Insulin Human Lispro 0 unit 11/30/18 07:00 12/01/18 06:20 Humalog SUB-Q 3 unit Q6HR KEN Administration Protocol Lamivudine 100 mg 11/30/18 16:00 11/30/18 16:00 Epivir PO 100 mg QDAY KEN Administration Metoclopramide HCl 5 mg 11/30/18 00:22 Reglan IV Q6H PRN Nausea And Vomiting Ondansetron HCl 4 mg 11/30/18 00:06 Zofran IV Q8H PRN Nausea And Vomiting Raltegravir 400 mg 11/30/18 16:00 11/30/18 22:20 Isentress PO 400 mg BID KEN Administration Simple Syrup 15 ml 11/30/18 11:24 Simple Syrup FEEDTUBE PRN PRN Hypoglycemia Simple Syrup 30 ml 11/30/18 11:24 Simple Syrup FEEDTUBE PRN PRN Hypoglycemia Sodium Bicarbonate 325 mg 11/30/18 11:24 Sodium Bicarbonate FEEDTUBE PRN PRN For Clogged Feeding Tube Sodium Chloride 10 ml 11/30/18 10:00 11/30/18 22:22 Sodium Chloride Flush Syringe 10 Ml IV 10 ml BID KEN Administration Sodium Chloride 10 ml 11/30/18 00:06 Sodium Chloride Flush Syringe 10 Ml IV PRN PRN LINE FLUSH Zidovudine 300 mg 11/30/18 16:00 11/30/18 22:22 Retrovir PO 300 mg BID KEN Administration
[2018-12-01] MEDS ORDERED: SODIUM BICARBONATE FEEDTUBE PRN (07:42)
--- NOTE | 2018-12-01 08:14 | Progress Note ---
Assessment and Plan Cultures: 11/29 BCx - NGTD 11/29 UCx - NGTD Assessment: : 73 yo M PMHx HIV, HTN, HLD admitted with AMS 1. SIRS possible sepsis - hypothermia and pancytopenia on admission and negative blood cultures. Unclear source. ?hormonal (thyroid/Merced's) v/s opportunistic fungi like histoplasma seen in HIV patients causing Merced's (however last reported CD4 250) 2. Altered mental status - unclear?. HIV related? Not better. Possibly due to ongoing microvascular disease with ischemia. Able to passively move neck on exam, but difficult to assess for meningismus. Continue empiric antibiotics for now with cefepime and vancomycin and monitor for improvement given positive SIRS criteria and rapid deterioration. 3. HIV - Well controlled at recent visit. Accidentally ordered qualitative VL last time, but genotype was unable to be performed thus meaning the VL was at least under 1000, and most likely undetectable. CD4 ~ 250. Continue home regimen of raltegravir, lamivudine, abacavir, zidovudine. 4. CONNIE - worsening 5. Pancytopenia mainlyThrombocytopenia: ? HIV, worsening 6. Acute respiratory failure: intubated for airway protection. Recommendations: - continue cefepime 2g q12h D3 - stop vancomycin as no evidence of MRSA and creatinine is worsening - obtain neuro consult, EEG and Brain MRI, consider lumbar puncture if not better - check am cortisol - check viral hepatitis panel - check Histoplasma urine antigen - continue ART - abacavir, raltegravir, zidovudine. Renally dosed lamivudine to 100mg daily. Will follow. Wilda Hodges MD Infectious Diseases Manager Of Care [facility] ([facility]) M [phone] O [phone] Subjective Date of service: 12/01/18 Principal diagnosis: sepsis Interval history: Remains intubated, no fever, no need for pressors, on the vent CMV FiO2 25%, p6. Objective - Exam Narrative Exam: General appearance: sedated on the vent Eyes: anicteric sclerae, moist conjunctivae HENT: Atraumatic; oropharynx limited ETT, OGT Lungs: CTA CV: RRR Abdomen: Soft, non-tender; umbilical hernia Extremities: no edema, no cyanosis Skin: No rash. Psych: no agitated - Constitutional Vitals: Vital Signs Temp Pulse Resp BP Pulse Ox 98.9 F 97 H 14 103/73 98 12/01/18 03:45 12/01/18 08:00 12/01/18 08:00 12/01/18 08:00 12/01/18 08:00 Temperature -Last 24 Hours Temperature 98.9 F Temperature 98.9 F Temperature 98.5 F Temperature 98.2 F Temperature 97 F - Labs CBC & Chem 7: 12/01/18 04:08 12/01/18 04:08 Labs: Abnormal lab results 11/30/18 11/30/18 11/30/18 Range/Units 08:52 10:31 10:58 RBC 3.05 L (3.65-5.03) M/mm3 Hgb 11.5 L (11.8-15.2) gm/dl Hct 35.3 L (35.5-45.6) % MCV 116 H (84-94) fl MCH 38 H (28-32) pg RDW 17.2 H (13.2-15.2) % Plt Count 43 L (140-440) K/mm3 ABG pO2 (80.0-90.0) mm Hg ABG HCO3 (20.0-26.0) mmol/L ABG Base Excess (-2.0-3.0) mmol/L ABG Hemoglobin (14.0-18.0) gm/dl Sodium 153 H (137-145) mmol/L Chloride 117.2 H (98-107) mmol/L Carbon Dioxide 18 L (22-30) mmol/L BUN 60 H (9-20) mg/dL Creatinine 2.8 H (0.8-1.5) mg/dL Glucose 216 H (75-100) mg/dL POC Glucose 234 H (70-105) Calcium 8.2 L (8.4-10.2) mg/dL Urine Creatinine (0.1-20.0) mg/dL 11/30/18 11/30/18 11/30/18 Range/Units 12:40 14:20 17:35 RBC (3.65-5.03) M/mm3 Hgb (11.8-15.2) gm/dl Hct (35.5-45.6) % MCV (84-94) fl MCH (28-32) pg RDW (13.2-15.2) % Plt Count (140-440) K/mm3 ABG pO2 (80.0-90.0) mm Hg ABG HCO3 (20.0-26.0) mmol/L ABG Base Excess (-2.0-3.0) mmol/L ABG Hemoglobin (14.0-18.0) gm/dl Sodium (137-145) mmol/L Chloride (98-107) mmol/L Carbon Dioxide (22-30) mmol/L BUN (9-20) mg/dL Creatinine (0.8-1.5) mg/dL Glucose (75-100) mg/dL POC Glucose 235 H 182 H (70-105) Calcium (8.4-10.2) mg/dL Urine Creatinine 173.8 H (0.1-20.0) mg/dL 11/30/18 12/01/18 12/01/18 Range/Units 23:53 04:08 04:08 RBC 3.11 L (3.65-5.03) M/mm3 Hgb 11.7 L (11.8-15.2) gm/dl Hct 35.3 L (35.5-45.6) % MCV 113 H (84-94) fl MCH 38 H (28-32) pg RDW 16.9 H (13.2-15.2) % Plt Count 43 L (140-440) K/mm3 ABG pO2 (80.0-90.0) mm Hg ABG HCO3 (20.0-26.0) mmol/L ABG Base Excess (-2.0-3.0) mmol/L ABG Hemoglobin (14.0-18.0) gm/dl Sodium 150 H (137-145) mmol/L Chloride 114.6 H (98-107) mmol/L Carbon Dioxide 16 L (22-30) mmol/L BUN 67 H (9-20) mg/dL Creatinine 2.9 H (0.8-1.5) mg/dL Glucose 193 H (75-100) mg/dL POC Glucose 149 H (70-105) Calcium 8.2 L (8.4-10.2) mg/dL Urine Creatinine (0.1-20.0) mg/dL 12/01/18 12/01/18 Range/Units 04:55 05:11 RBC (3.65-5.03) M/mm3 Hgb (11.8-15.2) gm/dl Hct (35.5-45.6) % MCV (84-94) fl MCH (28-32) pg RDW (13.2-15.2) % Plt Count (140-440) K/mm3 ABG pO2 91.9 H (80.0-90.0) mm Hg ABG HCO3 17.7 L (20.0-26.0) mmol/L ABG Base Excess -6.1 L (-2.0-3.0) mmol/L ABG Hemoglobin 11.5 L (14.0-18.0) gm/dl Sodium (137-145) mmol/L Chloride (98-107) mmol/L Carbon Dioxide (22-30) mmol/L BUN (9-20) mg/dL Creatinine (0.8-1.5) mg/dL Glucose (75-100) mg/dL POC Glucose 236 H (70-105) Calcium (8.4-10.2) mg/dL Urine Creatinine (0.1-20.0) mg/dL
[2018-12-01] MEDS: DUONEB *Not for PRN Use IH SCH ×4 (08:25→19:41)
[2018-12-01] MEDS: ISENTRESS PO SCH ×2 (10:00→21:50)
[2018-12-01] MEDS: EPIVIR PO SCH (10:00)
[2018-12-01] MEDS: ZIAGEN PO SCH (10:00)
[2018-12-01] MEDS: PEPCID IV SCH ×2 (10:00→21:49)
[2018-12-01] MEDS: RETROVIR PO SCH ×2 (10:00→21:50)
[2018-12-01] MEDS: SODIUM CHLORIDE FLUSH SYRINGE 10 ML IV SCH ×2 (10:00→21:51)
--- NOTE | 2018-12-01 11:53 | Progress Note ---
Assessment and Plan - Patient Problems (1) Dilated cardiomyopathy Current Visit: Yes Status: Acute Plan to address problem: Conservative cardiac medical therapy for chronic systolic left ventricular dysfunction. Subjective Date of service: 12/01/18 Principal diagnosis: sepsis Interval history: Patient is sedated, on the vent. On night monitor is significant normal sinus rhythm of 94, blood pressure 108 systolic. Objective Vital Signs Temp Pulse Pulse Pulse Resp Resp BP 12/01/18 11:45 96 H 106/73 12/01/18 09:00 89 17 95/65 12/01/18 08:45 91 H 16 98/64 12/01/18 08:30 91 H 18 98/68 12/01/18 08:25 94 H 20 12/01/18 08:15 94 H 16 101/70 12/01/18 08:00 91 H 92 H 17 101/70 12/01/18 07:45 92 H 15 103/71 12/01/18 07:30 97 H 16 112/82 12/01/18 07:15 94 H 15 111/81 12/01/18 07:00 88 17 116/80 12/01/18 06:45 90 14 114/76 12/01/18 06:30 89 15 111/76 12/01/18 06:15 91 H 15 108/76 12/01/18 06:00 92 H 18 109/78 12/01/18 05:45 93 H 20 96/57 12/01/18 05:30 89 18 102/71 12/01/18 05:15 90 17 102/72 12/01/18 05:00 90 16 101/72 12/01/18 04:45 93 H 16 104/73 12/01/18 04:30 93 H 19 101/73 12/01/18 04:15 93 H 19 99/74 12/01/18 04:00 94 H 93 H 17 102/73 12/01/18 03:45 98.9 F 91 H 18 101/72 12/01/18 03:30 94 H 19 102/73 12/01/18 03:15 94 H 20 98/74 12/01/18 03:08 94 H 100/72 12/01/18 03:00 94 H 19 100/72 12/01/18 02:45 91 H 18 100/70 12/01/18 02:30 94 H 18 98/69 12/01/18 02:15 94 H 17 101/71 12/01/18 02:00 93 H 18 101/70 12/01/18 01:45 95 H 16 99/70 12/01/18 01:30 93 H 16 97/70 12/01/18 01:15 93 H 18 98/71 12/01/18 01:00 94 H 18 97/70 12/01/18 00:45 92 H 18 97/68 12/01/18 00:30 94 H 19 94/68 12/01/18 00:15 93 H 18 95/68 12/01/18 00:02 95 H 18 93/66 12/01/18 00:00 95 H 96 H 18 93/66 11/30/18 23:57 92 H 96/70 11/30/18 23:47 94 H 17 96/70 11/30/18 23:45 95 H 16 96/70 11/30/18 23:30 91 H 16 91/68 11/30/18 23:29 98.9 F 11/30/18 23:15 95 H 18 91/65 11/30/18 23:00 84 18 92/63 11/30/18 22:45 88 25 H 92/65 11/30/18 22:30 100 H 23 99/71 11/30/18 22:15 97 H 19 101/73 11/30/18 22:00 99 H 24 111/74 11/30/18 21:45 106 H 21 102/71 11/30/18 21:30 99 H 17 99/68 11/30/18 21:15 100 H 17 102/71 11/30/18 21:01 95 H 18 11/30/18 21:00 99 H 17 100/70 11/30/18 20:45 98 H 19 101/70 11/30/18 20:30 99 H 19 101/69 11/30/18 20:15 97 H 18 97/64 11/30/18 20:00 97 H 97 H 18 99/67 11/30/18 19:52 98.5 F 11/30/18 19:47 95 H 96/67 11/30/18 19:45 97 H 16 96/67 11/30/18 19:30 96 H 16 87/65 11/30/18 19:15 94 H 18 95/64 11/30/18 19:00 95 H 14 96/64 11/30/18 18:45 94 H 14 96/66 11/30/18 18:30 94 H 18 98/69 11/30/18 18:15 95 H 19 98/66 11/30/18 18:00 94 H 16 99/64 11/30/18 17:45 94 H 13 99/65 11/30/18 17:30 94 H 18 96/66 11/30/18 17:15 95 H 17 99/66 11/30/18 17:00 95 H 17 96/66 11/30/18 16:45 95 H 19 93/64 11/30/18 16:30 94 H 15 97/66 11/30/18 16:15 94 H 18 100/65 11/30/18 16:08 95 H 95 H 18 97/66 11/30/18 16:00 98.2 F 95 H 94 H 17 97/66 11/30/18 15:45 94 H 18 100/68 11/30/18 15:30 93 H 19 100/68 11/30/18 15:15 93 H 18 99/67 11/30/18 15:00 94 H 19 101/70 11/30/18 14:45 94 H 18 103/70 11/30/18 14:30 94 H 18 111/71 11/30/18 14:23 93 H 110/71 11/30/18 14:15 95 H 12 110/76 11/30/18 14:00 94 H 12 110/73 11/30/18 13:45 93 H 13 108/75 11/30/18 13:30 92 H 12 106/72 11/30/18 13:15 92 H 11 L 104/69 11/30/18 13:00 92 H 14 102/69 11/30/18 12:45 93 H 14 107/71 11/30/18 12:30 93 H 14 105/72 11/30/18 12:15 92 H 13 110/73 11/30/18 12:00 97 F L 93 H 95 H 13 110/74 Pulse Ox 12/01/18 11:45 100 12/01/18 09:00 99 12/01/18 08:45 98 12/01/18 08:30 99 12/01/18 08:25 12/01/18 08:15 12/01/18 08:00 100 12/01/18 07:45 100 12/01/18 07:30 12/01/18 07:15 12/01/18 07:00 12/01/18 06:45 99 12/01/18 06:30 99 12/01/18 06:15 12/01/18 06:00 100 12/01/18 05:45 100 12/01/18 05:30 99 12/01/18 05:15 99 12/01/18 05:00 99 12/01/18 04:45 12/01/18 04:30 99 12/01/18 04:15 100 12/01/18 04:00 99 12/01/18 03:45 100 12/01/18 03:30 12/01/18 03:15 99 12/01/18 03:08 100 12/01/18 03:00 99 12/01/18 02:45 12/01/18 02:30 12/01/18 02:15 12/01/18 02:00 12/01/18 01:45 12/01/18 01:30 99 12/01/18 01:15 12/01/18 01:00 99 12/01/18 00:45 99 12/01/18 00:30 12/01/18 00:15 99 12/01/18 00:02 100 12/01/18 00:00 100 11/30/18 23:57 99 11/30/18 23:47 100 11/30/18 23:45 99 11/30/18 23:30 11/30/18 23:29 11/30/18 23:15 11/30/18 23:00 11/30/18 22:45 99 11/30/18 22:30 99 11/30/18 22:15 98 11/30/18 22:00 100 11/30/18 21:45 99 11/30/18 21:30 99 11/30/18 21:15 11/30/18 21:01 11/30/18 21:00 99 11/30/18 20:45 99 11/30/18 20:30 11/30/18 20:15 99 11/30/18 20:00 97 11/30/18 19:52 11/30/18 19:47 99 11/30/18 19:45 11/30/18 19:30 100 11/30/18 19:15 11/30/18 19:00 99 11/30/18 18:45 99 11/30/18 18:30 11/30/18 18:15 11/30/18 18:00 11/30/18 17:45 98 11/30/18 17:30 11/30/18 17:15 11/30/18 17:00 100 11/30/18 16:45 11/30/18 16:30 11/30/18 16:15 11/30/18 16:08 100 11/30/18 16:00 100 11/30/18 15:45 11/30/18 15:30 11/30/18 15:15 99 11/30/18 15:00 11/30/18 14:45 11/30/18 14:30 99 11/30/18 14:23 98 11/30/18 14:15 11/30/18 14:00 11/30/18 13:45 11/30/18 13:30 11/30/18 13:15 11/30/18 13:00 11/30/18 12:45 11/30/18 12:30 11/30/18 12:15 11/30/18 12:00 100 - Physical Examination General: Other (sedated, on the vent) Neck: Positive: neck supple, trachea midline Cardiac: Positive: Reg Rate and Rhythm Lungs: Positive: Decreased Breath Sounds Neuro: Positive: Other (sedated, on the vent) Abdomen: Positive: Soft Skin: Positive: Clear Extremities: Absent: edema - Labs and Meds CBC 11/30/18 12/01/18 Range/Units 10:58 04:08 WBC 6.0 7.3 (4.5-11.0) K/mm3 RBC 3.05 L 3.11 L (3.65-5.03) M/mm3 Hgb 11.5 L 11.7 L (11.8-15.2) gm/dl Hct 35.3 L 35.3 L (35.5-45.6) % Plt Count 43 L 43 L (140-440) K/mm3 Comprehensive Metabolic Panel 11/30/18 12/01/18 Range/Units 10:31 04:08 Sodium 153 H 150 H (137-145) mmol/L Potassium 4.1 4.5 (3.6-5.0) mmol/L Chloride 117.2 H 114.6 H (98-107) mmol/L Carbon Dioxide 18 L 16 L (22-30) mmol/L BUN 60 H 67 H (9-20) mg/dL Creatinine 2.8 H 2.9 H (0.8-1.5) mg/dL Glucose 216 H 193 H (75-100) mg/dL Calcium 8.2 L 8.2 L (8.4-10.2) mg/dL
[2018-12-01] MEDS ORDERED: VANCOMYCIN/NS 1 GM/250 ML 1 GM/250 ML BAG IV ONE (12:00)
--- NOTE | 2018-12-01 12:18 | Progress Note ---
Assessment and Plan 73 y/o male who presents with altered mental state, hypothermia, renal failure and hypernatremia and trop leak 1. Resp-Repeat PSV trial today and monitor for a few hours. If no apnea will consider extubation. 2. Neuro-Patient awake now. Has not been on sedation for over 24 hours. Follows commands. At this time, can likely hold on on EEG and MRI. Neurology was not consulted. Would also like to defer on LP for right now as well. Follow up remainder of ID recs. 3. ID-patient was hypothermic on arrival, started on a bear hugger which has now been weaned off. Started on broad spec abx therapy with Vanc and Cefepime. ID now following. Blood and urine cultures remain negative. Please see number 2. 4. Renal-Appears to be chronic renal failure when reviewing labs from before. Will continue to monitor. Numbers are stable today. 5. Electrolytes- patient has a calculated free water of deficit of about 4.4 liters. At this time suggest changing the 1/2 normal to D5W water and can increase insulin as needed. Same suggestion as yesterday. 6. Overall prognosis is guarded. Given multiple comorbidites, the prognosis is still likely going to be poor despite patient waking. CCT 31 minutes. Subjective Date of service: 12/01/18 Principal diagnosis: sepsis Interval history: Patient awake and alert. Following commands. Moves all extremities when asked. No family at bedside. Has not been placed on PSV trial yet but did do it yesterday for a significant amount of time. Did it for about 4 hours but was having apnic spells so placed back around 1500. Objective Vital Signs - 12hr 12/01/18 12/01/18 12/01/18 00:15 00:30 00:45 Temperature Pulse Rate 93 H 94 H 92 H Pulse Rate [ Anterior Bilateral Throughout] Pulse Rate [ Apical] Respiratory 18 19 18 Rate Respiratory Rate [Anterior Bilateral Throughout] Blood Pressure 95/68 94/68 97/68 O2 Sat by Pulse 99 99 Oximetry 12/01/18 12/01/18 12/01/18 01:00 01:15 01:30 Temperature Pulse Rate 94 H 93 H 93 H Pulse Rate [ Anterior Bilateral Throughout] Pulse Rate [ Apical] Respiratory 18 18 16 Rate Respiratory Rate [Anterior Bilateral Throughout] Blood Pressure 97/70 98/71 97/70 O2 Sat by Pulse 99 99 Oximetry 12/01/18 12/01/18 12/01/18 01:45 02:00 02:15 Temperature Pulse Rate 95 H 93 H 94 H Pulse Rate [ Anterior Bilateral Throughout] Pulse Rate [ Apical] Respiratory 16 18 17 Rate Respiratory Rate [Anterior Bilateral Throughout] Blood Pressure 99/70 101/70 101/71 O2 Sat by Pulse Oximetry 12/01/18 12/01/18 12/01/18 02:30 02:45 03:00 Temperature Pulse Rate 94 H 91 H 94 H Pulse Rate [ Anterior Bilateral Throughout] Pulse Rate [ Apical] Respiratory 18 18 19 Rate Respiratory Rate [Anterior Bilateral Throughout] Blood Pressure 98/69 100/70 100/72 O2 Sat by Pulse 99 Oximetry 12/01/18 12/01/18 12/01/18 03:08 03:15 03:30 Temperature Pulse Rate 94 H 94 H 94 H Pulse Rate [ Anterior Bilateral Throughout] Pulse Rate [ Apical] Respiratory 20 19 Rate Respiratory Rate [Anterior Bilateral Throughout] Blood Pressure 100/72 98/74 102/73 O2 Sat by Pulse 100 99 Oximetry 12/01/18 12/01/18 12/01/18 03:45 04:00 04:15 Temperature 98.9 F Pulse Rate 91 H 94 H 93 H Pulse Rate [ Anterior Bilateral Throughout] Pulse Rate [ 93 H Apical] Respiratory 18 17 19 Rate Respiratory Rate [Anterior Bilateral Throughout] Blood Pressure 101/72 102/73 99/74 O2 Sat by Pulse 100 99 100 Oximetry 12/01/18 12/01/18 12/01/18 04:30 04:45 05:00 Temperature Pulse Rate 93 H 93 H 90 Pulse Rate [ Anterior Bilateral Throughout] Pulse Rate [ Apical] Respiratory 19 16 16 Rate Respiratory Rate [Anterior Bilateral Throughout] Blood Pressure 101/73 104/73 101/72 O2 Sat by Pulse 99 99 Oximetry 12/01/18 12/01/18 12/01/18 05:15 05:30 05:45 Temperature Pulse Rate 90 89 93 H Pulse Rate [ Anterior Bilateral Throughout] Pulse Rate [ Apical] Respiratory 17 18 20 Rate Respiratory Rate [Anterior Bilateral Throughout] Blood Pressure 102/72 102/71 96/57 O2 Sat by Pulse 99 99 100 Oximetry 12/01/18 12/01/18 12/01/18 06:00 06:15 06:30 Temperature Pulse Rate 92 H 91 H 89 Pulse Rate [ Anterior Bilateral Throughout] Pulse Rate [ Apical] Respiratory 18 15 15 Rate Respiratory Rate [Anterior Bilateral Throughout] Blood Pressure 109/78 108/76 111/76 O2 Sat by Pulse 100 99 Oximetry 12/01/18 12/01/18 12/01/18 06:45 07:00 07:15 Temperature Pulse Rate 90 88 94 H Pulse Rate [ Anterior Bilateral Throughout] Pulse Rate [ Apical] Respiratory 14 17 15 Rate Respiratory Rate [Anterior Bilateral Throughout] Blood Pressure 114/76 116/80 111/81 O2 Sat by Pulse 99 Oximetry 12/01/18 12/01/18 12/01/18 07:30 07:45 08:00 Temperature Pulse Rate 97 H 92 H 91 H Pulse Rate [ Anterior Bilateral Throughout] Pulse Rate [ 92 H Apical] Respiratory 16 15 17 Rate Respiratory Rate [Anterior Bilateral Throughout] Blood Pressure 112/82 103/71 101/70 O2 Sat by Pulse 100 100 Oximetry 12/01/18 12/01/18 12/01/18 08:15 08:25 08:30 Temperature Pulse Rate 94 H 91 H Pulse Rate [ 94 H Anterior Bilateral Throughout] Pulse Rate [ Apical] Respiratory 16 18 Rate Respiratory 20 Rate [Anterior Bilateral Throughout] Blood Pressure 101/70 98/68 O2 Sat by Pulse 99 Oximetry 12/01/18 12/01/18 12/01/18 08:45 09:00 11:45 Temperature Pulse Rate 91 H 89 96 H Pulse Rate [ Anterior Bilateral Throughout] Pulse Rate [ Apical] Respiratory 16 17 Rate Respiratory Rate [Anterior Bilateral Throughout] Blood Pressure 98/64 95/65 106/73 O2 Sat by Pulse 98 99 100 Oximetry Constitutional: comatose Eyes: icteric, other (left eye open only) ENT: other (orally intubated and sedated) Neck: supple Effort: normal Ascultation: Bilateral: clear, diminished breath sounds Percussion: Bilateral: not dull Gastrointestinal: hypoactive bowel sounds, soft Neurologic: unable to assess CBC and BMP: 12/01/18 04:08 12/01/18 04:08 ABG, PT/INR, D-dimer: ABG POC ABG pH 7.319 (7.35-7.45) L 11/29/18 14:24 ABG pH 7.394 pH Units (7.350-7.450) 12/01/18 04:55 POC ABG pCO2 39.5 (35-45) 11/29/18 14:24 ABG pCO2 29.5 mm Hg 12/01/18 04:55 POC ABG pO2 126 (80-105) H 11/29/18 14:24 ABG pO2 91.9 mm Hg (80.0-90.0) H 12/01/18 04:55 POC ABG HCO3 20.3 (22-26 mml/L) 11/29/18 14:24 POC ABG Total CO2 21 (23-27mmol/L) 11/29/18 14:24 POC ABG O2 Sat 99 11/29/18 14:24 ABG O2 Saturation 97.3 % (95.0-99.0) 12/01/18 04:55 Abnormal lab findings: Abnormal Labs 11/29/18 11/29/18 11/29/18 13:07 13:39 13:39 WBC 3.2 L RBC 2.76 L Hgb 10.4 L Hct 32.1 L MCV 116 H MCH 38 H RDW 17.5 H Plt Count 48 L Lymph % (Auto) 5.4 L Lymph # 0.2 L Seg Neutrophils % 89.5 H POC ABG pH POC ABG pO2 ABG pO2 ABG HCO3 ABG O2 Saturation ABG Base Excess ABG Hemoglobin VBG pH Sodium 153 H Chloride 113.3 H Carbon Dioxide 21 L BUN 55 H Creatinine 2.4 H Glucose 260 H POC Glucose 289 H Calcium AST 68 H Alkaline Phosphatase 239 H Total Creatine Kinase 243 H Troponin T 0.054 H Total Protein 5.8 L Albumin 3.0 L LDL Cholesterol Direct 30 L HDL Cholesterol 63 H Urine Creatinine Salicylates Acetaminophen 11/29/18 11/29/18 11/29/18 13:39 13:39 13:39 WBC RBC Hgb Hct MCV MCH RDW Plt Count Lymph % (Auto) Lymph # Seg Neutrophils % POC ABG pH POC ABG pO2 ABG pO2 ABG HCO3 ABG O2 Saturation ABG Base Excess ABG Hemoglobin VBG pH 7.186 L* Sodium Chloride Carbon Dioxide BUN Creatinine Glucose POC Glucose Calcium AST Alkaline Phosphatase Total Creatine Kinase Troponin T Total Protein Albumin LDL Cholesterol Direct HDL Cholesterol Urine Creatinine Salicylates < 0.3 L Acetaminophen < 5.0 L 11/29/18 11/29/18 11/30/18 14:24 21:17 05:50 WBC RBC Hgb Hct MCV MCH RDW Plt Count Lymph % (Auto) Lymph # Seg Neutrophils % POC ABG pH 7.319 L POC ABG pO2 126 H ABG pO2 203.3 H ABG HCO3 18.5 L ABG O2 Saturation 99.3 H ABG Base Excess -6.2 L ABG Hemoglobin 10.9 L VBG pH Sodium Chloride Carbon Dioxide BUN Creatinine Glucose POC Glucose 242 H Calcium AST Alkaline Phosphatase Total Creatine Kinase Troponin T Total Protein Albumin LDL Cholesterol Direct HDL Cholesterol Urine Creatinine Salicylates Acetaminophen 11/30/18 11/30/18 11/30/18 08:52 10:31 10:58 WBC RBC 3.05 L Hgb 11.5 L Hct 35.3 L MCV 116 H MCH 38 H RDW 17.2 H Plt Count 43 L Lymph % (Auto) Lymph # Seg Neutrophils % POC ABG pH POC ABG pO2 ABG pO2 ABG HCO3 ABG O2 Saturation ABG Base Excess ABG Hemoglobin VBG pH Sodium 153 H Chloride 117.2 H Carbon Dioxide 18 L BUN 60 H Creatinine 2.8 H Glucose 216 H POC Glucose 234 H Calcium 8.2 L AST Alkaline Phosphatase Total Creatine Kinase Troponin T Total Protein Albumin LDL Cholesterol Direct HDL Cholesterol Urine Creatinine Salicylates Acetaminophen 11/30/18 11/30/18 11/30/18 12:40 14:20 17:35 WBC RBC Hgb Hct MCV MCH RDW Plt Count Lymph % (Auto) Lymph # Seg Neutrophils % POC ABG pH POC ABG pO2 ABG pO2 ABG HCO3 ABG O2 Saturation ABG Base Excess ABG Hemoglobin VBG pH Sodium Chloride Carbon Dioxide BUN Creatinine Glucose POC Glucose 235 H 182 H Calcium AST Alkaline Phosphatase Total Creatine Kinase Troponin T Total Protein Albumin LDL Cholesterol Direct HDL Cholesterol Urine Creatinine 173.8 H Salicylates Acetaminophen 11/30/18 12/01/18 12/01/18 23:53 04:08 04:08 WBC RBC 3.11 L Hgb 11.7 L Hct 35.3 L MCV 113 H MCH 38 H RDW 16.9 H Plt Count 43 L Lymph % (Auto) Lymph # Seg Neutrophils % POC ABG pH POC ABG pO2 ABG pO2 ABG HCO3 ABG O2 Saturation ABG Base Excess ABG Hemoglobin VBG pH Sodium 150 H Chloride 114.6 H Carbon Dioxide 16 L BUN 67 H Creatinine 2.9 H Glucose 193 H POC Glucose 149 H Calcium 8.2 L AST Alkaline Phosphatase Total Creatine Kinase Troponin T Total Protein Albumin LDL Cholesterol Direct HDL Cholesterol Urine Creatinine Salicylates Acetaminophen 12/01/18 12/01/18 04:55 05:11 WBC RBC Hgb Hct MCV MCH RDW Plt Count Lymph % (Auto) Lymph # Seg Neutrophils % POC ABG pH POC ABG pO2 ABG pO2 91.9 H ABG HCO3 17.7 L ABG O2 Saturation ABG Base Excess -6.1 L ABG Hemoglobin 11.5 L VBG pH Sodium Chloride Carbon Dioxide BUN Creatinine Glucose POC Glucose 236 H Calcium AST Alkaline Phosphatase Total Creatine Kinase Troponin T Total Protein Albumin LDL Cholesterol Direct HDL Cholesterol Urine Creatinine Salicylates Acetaminophen
[2018-12-01] MEDS: NACL 0.45% 1000 ML 1,000 ML IV SCH (13:52)
[2018-12-01] MEDS ORDERED: VANCOMYCIN 1,250 MG in NACL 0.9% 250ML 250 ML IV ONE (15:15)
--- NOTE | 2018-12-01 17:39 | Ultrasound Report ---
ULTRASOUND RENAL INDICATION / CLINICAL INFORMATION: Acute renal failure.. COMPARISON: None available. FINDINGS: RIGHT KIDNEY: Length = 10 cm. LEFT KIDNEY: Length = 10 cm. URINARY BLADDER: No significant abnormality. FREE FLUID: Small ascites ADDITIONAL FINDINGS: None. IMPRESSION: 1. No significant abnormality. Small ascites Signer Name: Smith Sky MD Signed: 12/01/2018 5:34 PM Workstation Name: [id number]
--- NOTE | 2018-12-01 17:52 | Progress Note ---
Assessment and Plan Assessment and plan: The high probability of a clinically significant, sudden or life threatening deterioration of the [] system(s) required my full and direct attention, intervention and personal management. The aggregate critical care time was [] minutes. This time is in addition to time spent performing reported procedures but includes the following: [x] Data Review and interpretation [x] Patient assessment and monitoring of vital signs [x] Documentation x[]x Medication orders and management Total Time Spent with Patient (Minutes): 34 min - Patient Problems (1) Hypertension Current Visit: Yes Status: Acute Plan to address problem: Pressure is normal have been on the low side. Patient is normotensive without any antihypertensives continue to hold. (2) Acute encephalopathy Current Visit: Yes Status: Acute Plan to address problem: Patient encephalopathy appears to be improving somewhat. Clinically has improved early this morning with the staff appears not as alert as mentioned on this shift. However good news because improved. Probably not secondary to HIV at this time. Most likely metabolic encephalopathy or infection versus electrolyte abnormality with hypernatremia. (3) Acute renal insufficiency Current Visit: Yes Status: Acute Plan to address problem: Acute renal insufficiency secondary to prerenal azotemia. Continue hydration as we are doing. (4) HIV (human immunodeficiency virus infection) Current Visit: Yes Status: Chronic Qualifiers: HIV symptom status: unspecified Qualified Code(s): B20 - Human immunodeficiency virus [HIV] disease Plan to address problem: Restart back on anti-retroviral medications. Patient was doing stable prior to this admission. (5) Acute CHF (congestive heart failure) Current Visit: No Status: Acute Qualifiers: Heart failure type: systolic Qualified Code(s): I50.21 - Acute systolic (congestive) heart failure (6) Sepsis Current Visit: No Status: Acute Qualifiers: Sepsis type: sepsis due to unspecified organism Sepsis acute organ dysfunction status: unspecified Qualified Code(s): A41.9 - Sepsis, unspecified organism Plan to address problem: He should've has ejection fraction of 15%. Very chronically ill. Prognosis remains extremely poor. We'll be difficult to maintain fluid balance at this particular time for prolonged periods on continue antihypertensives continue Lasix as we are doing. (7) Malnutrition Current Visit: No Status: Chronic Qualifiers: Protein-calorie malnutrition severity: mild Plan to address problem: Patient currently receiving alternative means of nutrition and dietitian consult. History Interval history: appears to have open eyes. Was somewhat more alert earlier this morning according to chart. Now appears somewhat somewhat. Patient failed PSV trial today. Secondary to hypoxemia. He does respond to stimuli both verbal and tactile stimulus. According to nurse improved since yesterday. Hospitalist Physical - Constitutional Vitals: Temp Pulse Resp BP Pulse Ox 98.2 F 98 H 22 113/82 100 12/01/18 16:00 12/01/18 16:15 12/01/18 16:15 12/01/18 16:15 12/01/18 16:00 General appearance: Present: no acute distress, other (intubated on cpap) - EENT ENT: clear oral mucosa, dentition normal, no oropharyngeal erythema, no poor dentition, no thrush - Neck Neck: Present: supple, normal ROM - Respiratory Respiratory effort: normal Respiratory: bilateral: CTA, rhonchi, wheezing - Cardiovascular Rhythm: regular - Extremities Extremities: no ischemia, pulses intact, pulses symmetrical Extremity abnormal: edema Peripheral Pulses: within normal limits - Abdominal General gastrointestinal: soft, tender, hypoactive bowel sounds - Integumentary Integumentary: Present: clear, warm - Psychiatric Psychiatric: other (karla encephalopathic.) Results - Labs CBC & Chem 7: 12/01/18 04:08 12/01/18 04:08 Labs: Laboratory Last Values WBC 7.3 K/mm3 (4.5-11.0) 12/01/18 04:08 RBC 3.11 M/mm3 (3.65-5.03) L 12/01/18 04:08 Hgb 11.7 gm/dl (11.8-15.2) L 12/01/18 04:08 Hct 35.3 % (35.5-45.6) L 12/01/18 04:08 MCV 113 fl (84-94) H 12/01/18 04:08 MCH 38 pg (28-32) H 12/01/18 04:08 MCHC 33 % (32-34) 12/01/18 04:08 RDW 16.9 % (13.2-15.2) H 12/01/18 04:08 Plt Count 43 K/mm3 (140-440) L 12/01/18 04:08 Lymph % (Auto) 5.4 % (13.4-35.0) L 11/29/18 13:39 [place] % (Auto) 4.9 % (0.0-7.3) 11/29/18 13:39 Eos % (Auto) 0.0 % (0.0-4.3) 11/29/18 13:39 Baso % (Auto) 0.2 % (0.0-1.8) 11/29/18 13:39 Lymph # 0.2 K/mm3 (1.2-5.4) L 11/29/18 13:39 [place] # 0.2 K/mm3 (0.0-0.8) 11/29/18 13:39 Eos # 0.0 K/mm3 (0.0-0.4) 11/29/18 13:39 Baso # 0.0 K/mm3 (0.0-0.1) 11/29/18 13:39 Seg Neutrophils % 89.5 % (40.0-70.0) H 11/29/18 13:39 Seg Neutrophils # 2.9 K/mm3 (1.8-7.7) 11/29/18 13:39 POC ABG pH 7.440 (7.35-7.45) 12/01/18 17:16 ABG pH 7.394 pH Units (7.350-7.450) 12/01/18 04:55 POC ABG pCO2 39.5 (35-45) 11/29/18 14:24 ABG pCO2 29.5 mm Hg 12/01/18 04:55 POC ABG pO2 92 (80-105) 12/01/18 17:16 ABG pO2 91.9 mm Hg (80.0-90.0) H 12/01/18 04:55 POC ABG HCO3 15.2 (22-26 mml/L) 12/01/18 17:16 ABG HCO3 17.7 mmol/L (20.0-26.0) L 12/01/18 04:55 POC ABG Total CO2 16 (23-27mmol/L) 12/01/18 17:16 POC ABG O2 Sat 98 12/01/18 17:16 ABG O2 Saturation 97.3 % (95.0-99.0) 12/01/18 04:55 ABG O2 Content 15.5 (0.0-44) 12/01/18 04:55 POC ABG Base Excess -9 ((-2) - (+3)mmol/L) 12/01/18 17:16 ABG Base Excess -6.1 mmol/L (-2.0-3.0) L 12/01/18 04:55 ABG Hemoglobin 11.5 gm/dl (14.0-18.0) L 12/01/18 04:55 ABG Carboxyhemoglobin 1.6 % (0.0-5.0) 12/01/18 04:55 ABG Methemoglobin 0.6 % (0.0-1.5) 12/01/18 04:55 VBG pH 7.186 (7.320-7.420) L* 11/29/18 13:39 95.2 % (95.0-99.0) 12/01/18 04:55 25 % 12/01/18 17:16 Sodium 150 mmol/L (137-145) H 12/01/18 04:08 Potassium 4.5 mmol/L (3.6-5.0) 12/01/18 04:08 Chloride 114.6 mmol/L (98-107) H 12/01/18 04:08 Carbon Dioxide 16 mmol/L (22-30) L 12/01/18 04:08 24 mmol/L 12/01/18 04:08 BUN 67 mg/dL (9-20) H 12/01/18 04:08 2.9 mg/dL (0.8-1.5) H 12/01/18 04:08 Estimated GFR 26 ml/min 12/01/18 04:08 23 % 12/01/18 04:08 Glucose 193 mg/dL (75-100) H 12/01/18 04:08 POC Glucose 236 (70-105) H 12/01/18 05:11 Lactic Acid 1.30 mmol/L (0.7-2.0) 11/29/18 14:42 Calcium 8.2 mg/dL (8.4-10.2) L 12/01/18 04:08 0.60 mg/dL (0.1-1.2) 11/29/18 13:39 AST 68 units/L (5-40) H 11/29/18 13:39 ALT 54 units/L (7-56) 11/29/18 13:39 239 units/L (35-129) H 11/29/18 13:39 28.0 umol/L (25-60) 11/29/18 13:39 243 units/L (55-170) H 11/29/18 13:39 0.054 ng/mL (0.00-0.029) H 11/29/18 13:39 5.8 g/dL (6.3-8.2) L 11/29/18 13:39 3.0 g/dL (3.9-5) L 11/29/18 13:39 1.1 % 11/29/18 13:39 Triglycerides 68 mg/dL (2-149) 11/29/18 13:39 Cholesterol 95 mg/dL (50-199) 11/29/18 13:39 30 mg/dL (50-130) L 11/29/18 13:39 63 mg/dL (40-59) H 11/29/18 13:39 1.50 % 11/29/18 13:39 Yellow (Yellow) 11/29/18 13:16 Clear (Clear) 11/29/18 13:16 5.0 (5.0-7.0) 11/29/18 13:16 Ur Specific [place] 1.018 (1.003-1.030) 11/29/18 13:16 30 mg/dl mg/dL (Negative) 11/29/18 13:16 Neg mg/dL (Negative) 11/29/18 13:16 Neg mg/dL (Negative) 11/29/18 13:16 Neg (Negative) 11/29/18 13:16 Neg (Negative) 11/29/18 13:16 Neg (Negative) 11/29/18 13:16 < 2.0 mg/dL (<2.0) 11/29/18 13:16 Ur Leukocyte Esterase Neg (Negative) 11/29/18 13:16 5.0 /HPF (0.0-6.0) 11/29/18 13:16 2.0 /HPF (0.0-6.0) 11/29/18 13:16 1+ /HPF (Negative) 11/29/18 13:16 173.8 mg/dL (0.1-20.0) H 11/30/18 14:20 18 mmol/L 11/30/18 14:20 Random Vancomycin 10.7 ug/mL (0-40.0) 12/01/18 13:20 Salicylates < 0.3 mg/dL (2.8-20.0) L 11/29/18 13:39 Presumptive negative 11/29/18 13:16 Presumptive negative 11/29/18 13:16 Acetaminophen < 5.0 ug/mL (10.0-30.0) L 11/29/18 13:39 Ur Barbiturates Screen Presumptive negative 11/29/18 13:16 Ur Phencyclidine Scrn Presumptive negative 11/29/18 13:16 Ur Amphetamines Screen Presumptive negative 11/29/18 13:16 U Benzodiazepines Scrn Presumptive negative 11/29/18 13:16 Presumptive negative 11/29/18 13:16 U Marijuana (THC) Screen Presumptive negative 11/29/18 13:16 Disclamer 11/29/18 13:16 Non-reactive (NonReactive) 12/01/18 04:08 Blood Type B POSITIVE 11/29/18 13:39 Antibody Screen Negative 11/29/18 13:39 - Imaging and Cardiology EKG: image reviewed CT Scan - head: report reviewed, image reviewed US - abdomen: image reviewed Active Medications - Current Medications Current Medications: Generic Name Dose Route Start Last Admin Trade Name Freq PRN Reason Stop Dose Admin Abacavir Sulfate 600 mg 11/30/18 16:00 12/01/18 10:00 Ziagen PO 600 mg DAILY KEN Administration Albuterol 2.5 mg 11/30/18 00:17 Proventil IH Q4HRT PRN Shortness Of Breath Albuterol/Ipratropium 1 ampul 11/30/18 08:00 12/01/18 16:00 Duoneb *Not For Prn Use* IH Not Given QIDRT KEN Lipase/Protease/Amylase 1 each 11/30/18 11:24 Pancredavis [place] 10,500 Unit FEEDTUBE PRN PRN For Clogged Feeding Tube Famotidine 10 mg 11/30/18 10:00 12/01/18 10:00 Pepcid IV 10 mg BID KEN Administration Sodium Chloride 1,000 mls @ 75 mls/hr 11/30/18 07:00 12/01/18 13:52 Nacl 0.45% 1000 Ml IV 12/04/18 11:00 100 mls/hr DIRECT KEN Administration Cefepime HCl 2 gm in 100 mls @ 200 mls/hr 11/30/18 22:00 11/30/18 23:00 Maxipime/Ns 2 Gm/100 Ml IV Infused Q24H KEN Infusion Protocol Insulin Human Lispro 0 unit 11/30/18 07:00 12/01/18 12:00 Humalog SUB-Q 4 unit Q6HR KEN Administration Protocol Lamivudine 100 mg 12/02/18 10:00 Epivir PO DAILY KEN Metoclopramide HCl 5 mg 11/30/18 00:22 Reglan IV Q6H PRN Nausea And Vomiting Ondansetron HCl 4 mg 11/30/18 00:06 Zofran IV Q8H PRN Nausea And Vomiting Raltegravir 400 mg 11/30/18 16:00 12/01/18 10:00 Isentress PO 400 mg BID KEN Administration Simple Syrup 15 ml 11/30/18 11:24 Simple Syrup FEEDTUBE PRN PRN Hypoglycemia Simple Syrup 30 ml 11/30/18 11:24 Simple Syrup FEEDTUBE PRN PRN Hypoglycemia Sodium Bicarbonate 325 mg 11/30/18 11:24 Sodium Bicarbonate FEEDTUBE PRN PRN For Clogged Feeding Tube Sodium Bicarbonate 325 mg 12/01/18 07:42 Sodium Bicarbonate FEEDTUBE PRN PRN For Clogged Feeding Tube Sodium Chloride 10 ml 11/30/18 10:00 12/01/18 10:00 Sodium Chloride Flush Syringe 10 Ml IV 10 ml BID KEN Administration Sodium Chloride 10 ml 11/30/18 00:06 Sodium Chloride Flush Syringe 10 Ml IV PRN PRN LINE FLUSH Zidovudine 300 mg 11/30/18 16:00 12/01/18 10:00 Retrovir PO 300 mg BID KEN Administration Nutrition/Malnutrition Assess - Dietary Evaluation Nutrition/Malnutrition Findings: Nutrition Notes Start: 11/30/18 08:33 Freq: Status: Active Protocol: Document 11/30/18 08:33 LM (Rec: 11/30/18 08:43 LM [id number]) Nutrition Notes Need for Assessment generated from: MD Order Initial or Follow up Assessment Current Diagnosis COPD,Diabetes,Hypertension Other Pertinent Diagnosis dementia, HIV, AMS Current Diet NPO Labs/Tests Reviewed Pertinent Medications Reviewed Height 6 ft 4 in Weight 79.2 kg [place] Body Weight (kg) 91.81 BMI 21.2 Subjective/Other Information MD consult for TF and skin risk. Pt on vent at time of visit. Josiah score of 13. Noticed dry scaley skin on lower limbs/feet. Burn Absent Trauma Absent #1 Nutrition Diagnosis Inadequate oral intake Etiology Mechanical vent As Evidenced by Signs and Symptoms Pt NPO Is patient on ventilator? Yes Is Patient Ambulatory and/or Out of Bed No REE-([facility]-confined to bed) 1966.356 Calculation Used for Recommendations [facility] Additional Notes Protein: 79-95g (1.1.2g/kg) Fluids: 1 ml/kcal Nutrition Intervention Change Diet Order: TF Nutrition Support: Glucerna at 70 ml/hr Flush 100 ml q4hr Kcal 2,016 Protein (gm) 100 Fluid (mL) 1,352 Goal #1 TF start/tolerance Follow-Up By: 12/03/18 Additional Comments F/U for TF start/tolerance
[2018-12-01] MEDS: MAXIPIME/NS 2 GM/100 ML 2 GM/100 ML BAG IV SCH (21:50)
[2018-12-02] MEDS: HumaLOG SUB-Q SCH ×4 (00:45→18:41)
[2018-12-02 03:59] LABS: ABG Base Excess -6.2 mmol/L (-2.0-3.0); ABG HCO3 16.4 mmol/L (20.0-26.0); ABG Methemoglobin 0.5 % (0.0-1.5); ABG Oxygen Saturation 96.7 % (95.0-99.0); ABG PCO2 24.6 mm Hg; ABG PH 7.442 pH Units (7.350-7.450)
[2018-12-02 05:41] LABS: Calcium 8.4 mg/dL (8.4-10.2)
[2018-12-02] MEDS: NACL 0.45% 1000 ML 1,000 ML IV SCH ×3 (05:55→18:43)
[2018-12-02] MEDS: DUONEB *Not for PRN Use IH SCH ×4 (07:43→19:16)
[2018-12-02 08:14] LABS: Hematocrit 34.1 % (35.5-45.6); Hemoglobin 11.4 gm/dl (11.8-15.2); Mean Corpuscular HGB Conc 33 % (32-34); Mean Corpuscular Volume 113 fl (84-94); Platelet Count 40 K/mm3 (140-440); Red Blood Count 3.01 M/mm3 (3.65-5.03); Red Cell Distribution Width 17.3 % (13.2-15.2)
[2018-12-02] MEDS: PEPCID IV SCH ×2 (10:25→21:48)
[2018-12-02] MEDS: ISENTRESS PO SCH ×2 (10:26→21:48)
[2018-12-02] MEDS: EPIVIR PO SCH (10:27)
[2018-12-02] MEDS: ZIAGEN PO SCH (10:27)
[2018-12-02] MEDS: RETROVIR PO SCH ×2 (10:27→21:49)
[2018-12-02] MEDS: SODIUM CHLORIDE FLUSH SYRINGE 10 ML IV SCH ×2 (10:28→21:49)
[2018-12-02] MEDS ORDERED: KIONEX PO ONE (12:13)
--- NOTE | 2018-12-02 12:36 | Progress Note ---
Assessment and Plan 73 y/o male who presents with altered mental state, hypothermia, renal failure and hypernatremia and trop leak 1. Resp-Attempt PSV as patient is not on any sedations. This should be done daily. Appears to have only lasted about 20 minutes today but not documented as to why placed back on. Most likely apnena. 2. Neuro-Now neuro status is worse, despite improvements in metabolic derangments. Unable to obtain MRI on the weekends as it is not available. Can go ahead an order LP to be done under [facility]ouro. Will order EEG but doubt this will be done today or tomorrow. 3. ID-patient was hypothermic on arrival, started on a bear hugger which has now been weaned off. Started on broad spec abx therapy with Vanc and Cefepime. ID now following. Blood and urine cultures remain negative. Please see number 2. 4. Renal-Appears to be chronic renal failure when reviewing labs from before. BUN worsening. Maybe contributing to mental state but not sure. K is also worse but not repeated. May need HD. Urine output minimal compared to intake 5. Electrolytes- Will defer to nephrology as they are following. 6. Overall prognosis is guarded to poor. Patient is likely a poor candidate for HD given other comorbid disease. 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 CCT 31 minutes. Subjective Date of service: 12/02/18 Principal diagnosis: sepsis Interval history: Mental status has deteriorated again. now not responsive at all. Was briefly back on warmer but off now. BP stable. No family present. Objective Vital Signs - 12hr 12/02/18 12/02/18 12/02/18 00:45 01:00 01:15 Temperature Pulse Rate 96 H 97 H 97 H Pulse Rate [ Anterior Bilateral Throughout] Pulse Rate [ Apical] Respiratory 17 25 H 24 Rate Respiratory Rate [Anterior Abdomen] Respiratory Rate [Anterior Bilateral Throughout] Blood Pressure 111/79 111/83 114/82 O2 Sat by Pulse 91 91 90 Oximetry 12/02/18 12/02/18 12/02/18 01:31 01:45 02:00 Temperature Pulse Rate 93 H 95 H 94 H Pulse Rate [ Anterior Bilateral Throughout] Pulse Rate [ Apical] Respiratory 19 27 H 22 Rate Respiratory Rate [Anterior Abdomen] Respiratory Rate [Anterior Bilateral Throughout] Blood Pressure 116/79 106/86 115/77 O2 Sat by Pulse 95 97 97 Oximetry 12/02/18 12/02/18 12/02/18 02:15 02:30 02:45 Temperature Pulse Rate 93 H 96 H 96 H Pulse Rate [ Anterior Bilateral Throughout] Pulse Rate [ Apical] Respiratory 19 24 22 Rate Respiratory Rate [Anterior Abdomen] Respiratory Rate [Anterior Bilateral Throughout] Blood Pressure 113/77 110/78 109/76 O2 Sat by Pulse 97 97 97 Oximetry 12/02/18 12/02/18 12/02/18 03:00 03:15 03:23 Temperature 98.9 F Pulse Rate 95 H 97 H Pulse Rate [ Anterior Bilateral Throughout] Pulse Rate [ Apical] Respiratory 21 23 Rate Respiratory Rate [Anterior Abdomen] Respiratory Rate [Anterior Bilateral Throughout] Blood Pressure 111/77 119/80 O2 Sat by Pulse 97 95 Oximetry 12/02/18 12/02/18 12/02/18 03:30 03:45 03:59 Temperature Pulse Rate 95 H 95 H 98 H Pulse Rate [ Anterior Bilateral Throughout] Pulse Rate [ Apical] Respiratory 19 21 Rate Respiratory Rate [Anterior Abdomen] Respiratory Rate [Anterior Bilateral Throughout] Blood Pressure 112/80 116/84 116/84 O2 Sat by Pulse 96 97 96 Oximetry 12/02/18 12/02/18 12/02/18 04:00 04:15 04:30 Temperature Pulse Rate 96 H 96 H 98 H Pulse Rate [ Anterior Bilateral Throughout] Pulse Rate [ 98 H Apical] Respiratory 22 16 21 Rate Respiratory Rate [Anterior Abdomen] Respiratory Rate [Anterior Bilateral Throughout] Blood Pressure 115/82 114/78 113/75 O2 Sat by Pulse 95 97 98 Oximetry 12/02/18 12/02/18 12/02/18 04:45 05:00 05:15 Temperature Pulse Rate 93 H 94 H 93 H Pulse Rate [ Anterior Bilateral Throughout] Pulse Rate [ Apical] Respiratory 26 H 25 H 23 Rate Respiratory Rate [Anterior Abdomen] Respiratory Rate [Anterior Bilateral Throughout] Blood Pressure 111/78 106/77 112/78 O2 Sat by Pulse 98 96 95 Oximetry 12/02/18 12/02/18 12/02/18 05:30 05:45 06:00 Temperature Pulse Rate 95 H 93 H 93 H Pulse Rate [ Anterior Bilateral Throughout] Pulse Rate [ Apical] Respiratory 16 18 17 Rate Respiratory Rate [Anterior Abdomen] Respiratory Rate [Anterior Bilateral Throughout] Blood Pressure 111/78 113/76 111/74 O2 Sat by Pulse 96 95 97 Oximetry 12/02/18 12/02/18 12/02/18 07:43 07:49 08:00 Temperature Pulse Rate 97 H Pulse Rate [ 96 H Anterior Bilateral Throughout] Pulse Rate [ Apical] Respiratory 20 Rate Respiratory Rate [Anterior Abdomen] Respiratory 25 H Rate [Anterior Bilateral Throughout] Blood Pressure 118/74 O2 Sat by Pulse 99 98 Oximetry 12/02/18 12/02/18 12/02/18 10:00 10:47 11:18 Temperature Pulse Rate 94 H 100 H Pulse Rate [ Anterior Bilateral Throughout] Pulse Rate [ Apical] Respiratory Rate Respiratory 21 Rate [Anterior Abdomen] Respiratory Rate [Anterior Bilateral Throughout] Blood Pressure 112/79 110/82 O2 Sat by Pulse 97 99 Oximetry Constitutional: comatose Eyes: icteric, other (left eye open only) ENT: other (orally intubated and sedated) Neck: supple Effort: normal Ascultation: Bilateral: clear, diminished breath sounds Percussion: Bilateral: not dull Gastrointestinal: hypoactive bowel sounds, soft Neurologic: unable to assess CBC and BMP: 12/02/18 07:50 12/02/18 05:11 ABG, PT/INR, D-dimer: ABG POC ABG pH 7.440 (7.35-7.45) 12/01/18 17:16 ABG pH 7.442 pH Units (7.350-7.450) 12/02/18 03:40 ABG pCO2 24.6 mm Hg 12/02/18 03:40 POC ABG pO2 92 (80-105) 12/01/18 17:16 ABG pO2 78.0 mm Hg (80.0-90.0) L 12/02/18 03:40 POC ABG HCO3 15.2 (22-26 mml/L) 12/01/18 17:16 POC ABG Total CO2 16 (23-27mmol/L) 12/01/18 17:16 POC ABG O2 Sat 98 12/01/18 17:16 ABG O2 Saturation 96.7 % (95.0-99.0) 12/02/18 03:40 Abnormal lab findings: Abnormal Labs 11/29/18 11/29/18 11/29/18 13:07 13:39 13:39 WBC 3.2 L RBC 2.76 L Hgb 10.4 L Hct 32.1 L MCV 116 H MCH 38 H RDW 17.5 H Plt Count 48 L Lymph % (Auto) 5.4 L Lymph # 0.2 L Seg Neutrophils % 89.5 H POC ABG pH POC ABG pO2 ABG pO2 ABG HCO3 ABG O2 Saturation ABG Base Excess ABG Hemoglobin VBG pH Oxyhemoglobin Sodium 153 H Potassium Chloride 113.3 H Carbon Dioxide 21 L BUN 55 H Creatinine 2.4 H Glucose 260 H POC Glucose 289 H Calcium AST 68 H Alkaline Phosphatase 239 H Total Creatine Kinase 243 H Troponin T 0.054 H Total Protein 5.8 L Albumin 3.0 L LDL Cholesterol Direct 30 L HDL Cholesterol 63 H Urine Creatinine Salicylates Acetaminophen 11/29/18 11/29/18 11/29/18 13:39 13:39 13:39 WBC RBC Hgb Hct MCV MCH RDW Plt Count Lymph % (Auto) Lymph # Seg Neutrophils % POC ABG pH POC ABG pO2 ABG pO2 ABG HCO3 ABG O2 Saturation ABG Base Excess ABG Hemoglobin VBG pH 7.186 L* Oxyhemoglobin Sodium Potassium Chloride Carbon Dioxide BUN Creatinine Glucose POC Glucose Calcium AST Alkaline Phosphatase Total Creatine Kinase Troponin T Total Protein Albumin LDL Cholesterol Direct HDL Cholesterol Urine Creatinine Salicylates < 0.3 L Acetaminophen < 5.0 L 11/29/18 11/29/18 11/30/18 14:24 21:17 05:50 WBC RBC Hgb Hct MCV MCH RDW Plt Count Lymph % (Auto) Lymph # Seg Neutrophils % POC ABG pH 7.319 L POC ABG pO2 126 H ABG pO2 203.3 H ABG HCO3 18.5 L ABG O2 Saturation 99.3 H ABG Base Excess -6.2 L ABG Hemoglobin 10.9 L VBG pH Oxyhemoglobin Sodium Potassium Chloride Carbon Dioxide BUN Creatinine Glucose POC Glucose 242 H Calcium AST Alkaline Phosphatase Total Creatine Kinase Troponin T Total Protein Albumin LDL Cholesterol Direct HDL Cholesterol Urine Creatinine Salicylates Acetaminophen 11/30/18 11/30/18 11/30/18 08:52 10:31 10:58 WBC RBC 3.05 L Hgb 11.5 L Hct 35.3 L MCV 116 H MCH 38 H RDW 17.2 H Plt Count 43 L Lymph % (Auto) Lymph # Seg Neutrophils % POC ABG pH POC ABG pO2 ABG pO2 ABG HCO3 ABG O2 Saturation ABG Base Excess ABG Hemoglobin VBG pH Oxyhemoglobin Sodium 153 H Potassium Chloride 117.2 H Carbon Dioxide 18 L BUN 60 H Creatinine 2.8 H Glucose 216 H POC Glucose 234 H Calcium 8.2 L AST Alkaline Phosphatase Total Creatine Kinase Troponin T Total Protein Albumin LDL Cholesterol Direct HDL Cholesterol Urine Creatinine Salicylates Acetaminophen 11/30/18 11/30/18 11/30/18 12:40 14:20 17:35 WBC RBC Hgb Hct MCV MCH RDW Plt Count Lymph % (Auto) Lymph # Seg Neutrophils % POC ABG pH POC ABG pO2 ABG pO2 ABG HCO3 ABG O2 Saturation ABG Base Excess ABG Hemoglobin VBG pH Oxyhemoglobin Sodium Potassium Chloride Carbon Dioxide BUN Creatinine Glucose POC Glucose 235 H 182 H Calcium AST Alkaline Phosphatase Total Creatine Kinase Troponin T Total Protein Albumin LDL Cholesterol Direct HDL Cholesterol Urine Creatinine 173.8 H Salicylates Acetaminophen 11/30/18 12/01/18 12/01/18 23:53 04:08 04:08 WBC RBC 3.11 L Hgb 11.7 L Hct 35.3 L MCV 113 H MCH 38 H RDW 16.9 H Plt Count 43 L Lymph % (Auto) Lymph # Seg Neutrophils % POC ABG pH POC ABG pO2 ABG pO2 ABG HCO3 ABG O2 Saturation ABG Base Excess ABG Hemoglobin VBG pH Oxyhemoglobin Sodium 150 H Potassium Chloride 114.6 H Carbon Dioxide 16 L BUN 67 H Creatinine 2.9 H Glucose 193 H POC Glucose 149 H Calcium 8.2 L AST Alkaline Phosphatase Total Creatine Kinase Troponin T Total Protein Albumin LDL Cholesterol Direct HDL Cholesterol Urine Creatinine Salicylates Acetaminophen 12/01/18 12/01/18 12/01/18 04:55 05:11 13:33 WBC RBC Hgb Hct MCV MCH RDW Plt Count Lymph % (Auto) Lymph # Seg Neutrophils % POC ABG pH POC ABG pO2 ABG pO2 91.9 H ABG HCO3 17.7 L ABG O2 Saturation ABG Base Excess -6.1 L ABG Hemoglobin 11.5 L VBG pH Oxyhemoglobin Sodium Potassium Chloride Carbon Dioxide BUN Creatinine Glucose POC Glucose 236 H 255 H Calcium AST Alkaline Phosphatase Total Creatine Kinase Troponin T Total Protein Albumin LDL Cholesterol Direct HDL Cholesterol Urine Creatinine Salicylates Acetaminophen 12/01/18 12/02/18 12/02/18 18:20 00:17 03:40 WBC RBC Hgb Hct MCV MCH RDW Plt Count Lymph % (Auto) Lymph # Seg Neutrophils % POC ABG pH POC ABG pO2 ABG pO2 78.0 L ABG HCO3 16.4 L ABG O2 Saturation ABG Base Excess -6.2 L ABG Hemoglobin 11.4 L VBG pH Oxyhemoglobin 94.5 L Sodium Potassium Chloride Carbon Dioxide BUN Creatinine Glucose POC Glucose 177 H 192 H Calcium AST Alkaline Phosphatase Total Creatine Kinase Troponin T Total Protein Albumin LDL Cholesterol Direct HDL Cholesterol Urine Creatinine Salicylates Acetaminophen 12/02/18 12/02/18 12/02/18 05:11 05:26 07:50 WBC 4.1 L RBC 3.01 L Hgb 11.4 L Hct 34.1 L MCV 113 H MCH 38 H RDW 17.3 H Plt Count 40 L Lymph % (Auto) Lymph # Seg Neutrophils % POC ABG pH POC ABG pO2 ABG pO2 ABG HCO3 ABG O2 Saturation ABG Base Excess ABG Hemoglobin VBG pH Oxyhemoglobin Sodium Potassium 5.6 H D Chloride 113.0 H Carbon Dioxide 16 L BUN 73 H Creatinine 2.8 H Glucose 202 H POC Glucose 179 H Calcium AST Alkaline Phosphatase Total Creatine Kinase Troponin T Total Protein Albumin LDL Cholesterol Direct HDL Cholesterol Urine Creatinine Salicylates Acetaminophen 12/02/18 11:57 WBC RBC Hgb Hct MCV MCH RDW Plt Count Lymph % (Auto) Lymph # Seg Neutrophils % POC ABG pH POC ABG pO2 ABG pO2 ABG HCO3 ABG O2 Saturation ABG Base Excess ABG Hemoglobin VBG pH Oxyhemoglobin Sodium Potassium Chloride Carbon Dioxide BUN Creatinine Glucose POC Glucose 140 H Calcium AST Alkaline Phosphatase Total Creatine Kinase Troponin T Total Protein Albumin LDL Cholesterol Direct HDL Cholesterol Urine Creatinine Salicylates Acetaminophen
--- NOTE | 2018-12-02 14:27 | Progress Note ---
Assessment and Plan - Patient Problems (1) Dilated cardiomyopathy Current Visit: Yes Status: Acute Plan to address problem: Conservative cardiac medical therapy for chronic systolic left ventricular dysfunction. Subjective Date of service: 12/02/18 Principal diagnosis: sepsis Interval history: The patient is unresponsive, on the vent. Heart rate is 92, sinus rhythm, blood pressure is stable. Objective Vital Signs Temp Pulse Pulse Pulse Resp Resp Resp 12/02/18 11:18 100 H 12/02/18 10:47 94 H 12/02/18 10:00 21 12/02/18 08:00 20 12/02/18 07:49 96 H 25 H 12/02/18 07:43 97 H 12/02/18 06:00 93 H 17 12/02/18 05:45 93 H 18 12/02/18 05:30 95 H 16 12/02/18 05:15 93 H 23 12/02/18 05:00 94 H 25 H 12/02/18 04:45 93 H 26 H 12/02/18 04:30 98 H 12/02/18 04:15 96 H 16 12/02/18 04:00 96 H 98 H 12/02/18 03:59 98 H 12/02/18 03:45 95 H 12/02/18 03:30 95 H 12/02/18 03:23 98.9 F 12/02/18 03:15 97 H 23 12/02/18 03:00 95 H 12/02/18 02:45 96 H 12/02/18 02:30 96 H 24 12/02/18 02:15 93 H 12/02/18 02:00 94 H 12/02/18 01:45 95 H 27 H 12/02/18 01:31 93 H 12/02/18 01:15 97 H 24 12/02/18 01:00 97 H 25 H 12/02/18 00:45 96 H 12/02/18 00:30 99 H 26 H 12/02/18 00:15 96 H 28 H 12/02/18 00:00 96 H 98 H 12/01/18 23:58 99.1 F 12/01/18 23:45 95 H 26 H 12/01/18 23:30 93 H 28 H 12/01/18 23:15 92 H 12/01/18 23:08 92 H 12/01/18 23:07 93 H 26 H 12/01/18 23:00 98 H 19 12/01/18 22:45 92 H 21 12/01/18 22:30 91 H 20 12/01/18 22:15 91 H 21 12/01/18 22:00 94 H 23 12/01/18 21:45 94 H 23 12/01/18 21:30 93 H 23 12/01/18 21:15 94 H 21 12/01/18 21:00 98 H 25 H 12/01/18 20:45 94 H 21 12/01/18 20:30 96 H 25 H 12/01/18 20:15 95 H 19 12/01/18 20:00 94 H 96 H 28 H 12/01/18 19:58 97 H 25 H 12/01/18 19:46 98.9 F 12/01/18 19:45 92 H 26 H 12/01/18 19:37 94 H 12/01/18 19:30 96 H 20 12/01/18 19:15 84 21 12/01/18 19:00 91 H 24 12/01/18 18:45 96 H 23 12/01/18 18:30 95 H 18 12/01/18 18:15 96 H 18 12/01/18 18:00 94 H 22 12/01/18 17:45 100 H 25 H 12/01/18 17:30 98 H 20 12/01/18 17:15 98 H 27 H 12/01/18 17:00 97 H 17 12/01/18 16:45 98 H 23 12/01/18 16:30 95 H 26 H 12/01/18 16:15 98 H 22 12/01/18 16:00 98.2 F 99 H 99 H 17 12/01/18 15:45 98 H 15 12/01/18 15:30 98 H 24 12/01/18 15:15 102 H 24 12/01/18 15:00 101 H 22 12/01/18 14:45 102 H 25 H 12/01/18 14:30 95 H 28 H BP Pulse Ox 12/02/18 11:18 110/82 99 12/02/18 10:47 112/79 97 12/02/18 10:00 12/02/18 08:00 98 12/02/18 07:49 12/02/18 07:43 118/74 99 12/02/18 06:00 111/74 97 12/02/18 05:45 113/76 95 12/02/18 05:30 111/78 96 12/02/18 05:15 112/78 95 12/02/18 05:00 106/77 96 12/02/18 04:45 111/78 98 12/02/18 04:30 113/75 98 12/02/18 04:15 114/78 97 12/02/18 04:00 115/82 95 12/02/18 03:59 116/84 96 12/02/18 03:45 116/84 97 12/02/18 03:30 112/80 96 12/02/18 03:23 12/02/18 03:15 119/80 95 12/02/18 03:00 111/77 97 12/02/18 02:45 109/76 97 12/02/18 02:30 110/78 97 12/02/18 02:15 113/77 97 12/02/18 02:00 115/77 97 12/02/18 01:45 106/86 97 12/02/18 01:31 116/79 95 12/02/18 01:15 114/82 90 12/02/18 01:00 111/83 91 12/02/18 00:45 111/79 91 12/02/18 00:30 112/84 97 12/02/18 00:15 106/81 97 12/02/18 00:00 114/78 93 12/01/18 23:58 12/01/18 23:45 120/77 97 12/01/18 23:30 110/75 98 12/01/18 23:15 109/77 12/01/18 23:08 106/77 98 12/01/18 23:07 106/77 99 12/01/18 23:00 106/77 12/01/18 22:45 107/76 98 12/01/18 22:30 106/72 98 12/01/18 22:15 100/72 12/01/18 22:00 107/76 95 12/01/18 21:45 107/81 95 12/01/18 21:30 102/78 96 12/01/18 21:15 119/83 97 12/01/18 21:00 130/79 94 12/01/18 20:45 113/79 95 12/01/18 20:30 114/81 96 12/01/18 20:15 111/82 96 12/01/18 20:00 109/78 98 12/01/18 19:58 12/01/18 19:46 12/01/18 19:45 111/82 98 12/01/18 19:37 110/78 98 12/01/18 19:30 110/78 98 12/01/18 19:15 102/76 98 12/01/18 19:00 106/77 98 12/01/18 18:45 104/76 99 12/01/18 18:30 105/68 97 12/01/18 18:15 110/81 12/01/18 18:00 112/79 12/01/18 17:45 112/87 99 12/01/18 17:30 114/82 98 12/01/18 17:15 112/82 99 12/01/18 17:00 110/85 12/01/18 16:45 113/83 99 12/01/18 16:30 111/83 100 12/01/18 16:15 113/82 12/01/18 16:00 112/82 99 12/01/18 15:45 115/82 100 12/01/18 15:30 113/85 100 12/01/18 15:15 116/84 98 12/01/18 15:00 121/86 99 12/01/18 14:45 125/90 99 12/01/18 14:30 115/81 100 - Physical Examination General: Other (unresponsive, on the vent) Neck: Positive: neck supple, trachea midline Cardiac: Positive: Reg Rate and Rhythm Lungs: Positive: Decreased Breath Sounds Neuro: Positive: Other (unresponsive, on the vent) Abdomen: Positive: Soft Skin: Positive: Clear Extremities: Absent: edema - Labs and Meds CBC 12/02/18 Range/Units 07:50 WBC 4.1 L (4.5-11.0) K/mm3 RBC 3.01 L (3.65-5.03) M/mm3 Hgb 11.4 L (11.8-15.2) gm/dl Hct 34.1 L (35.5-45.6) % Plt Count 40 L (140-440) K/mm3 Comprehensive Metabolic Panel 12/02/18 Range/Units 05:11 Sodium 144 (137-145) mmol/L Potassium 5.6 H D (3.6-5.0) mmol/L Chloride 113.0 H (98-107) mmol/L Carbon Dioxide 16 L (22-30) mmol/L BUN 73 H (9-20) mg/dL Creatinine 2.8 H (0.8-1.5) mg/dL Glucose 202 H (75-100) mg/dL Calcium 8.4 (8.4-10.2) mg/dL - Imaging and Cardiology EKG: image reviewed
--- NOTE | 2018-12-02 15:26 | Progress Note ---
Assessment and Plan Cultures: 11/29 BCx - NGTD 11/29 UCx - NGTD Assessment: : 73 yo M PMHx HIV, HTN, HLD admitted with AMS 1. SIRS possible sepsis - hypothermia and pancytopenia on admission and negative blood cultures. Unclear source. ?hormonal (thyroid/Hooker's) v/s opportunistic fungi like histoplasma seen in HIV patients causing Hooker's (however last reported CD4 250) 2. Altered mental status - unclear?. HIV related? Not better. Possibly due to ongoing microvascular disease with ischemia. Able to passively move neck on exam, but difficult to assess for meningismus. Continue empiric antibiotics for now with cefepime and vancomycin and monitor for improvement given positive SIRS criteria and rapid deterioration. 3. HIV - Well controlled at recent visit. Accidentally ordered qualitative VL last time, but genotype was unable to be performed thus meaning the VL was at least under 1000, and most likely undetectable. CD4 ~ 250. Continue home regimen of raltegravir, lamivudine, abacavir, zidovudine. 4. CONNIE - worsening 5. Pancytopenia mainlyThrombocytopenia: ? HIV, worsening 6. Acute respiratory failure: intubated for airway protection. Recommendations: - continue cefepime 2g q12h D4 - obtain lumbar puncture as mentation is not better, CSF for cell count, diff, culture, glucose, protein, CMV DNA PCR, HSV DNA PCR, JAREK DNA PCR, VDRL - obtain neuro consult, EEG - Brain MRI unable to obtain during weekend - check am cortisol - ordered - check viral hepatitis panel - ordered - check Histoplasma urine antigen - ordered - continue ART - abacavir, raltegravir, zidovudine. Renally dosed lamivudine to 100mg daily. Will follow. Wilda Hodges MD Infectious Diseases Aerologist [facility] M [phone] O [phone] Subjective Date of service: 12/02/18 Principal diagnosis: sepsis Interval history: Remains intubated, unresponsive off sedative, no fever, no need for pressors last 24h, on the vent CMV FiO2 25%, p6. Objective - Exam Narrative Exam: General appearance: sedated on the vent Eyes: anicteric sclerae, moist conjunctivae HENT: Atraumatic; oropharynx limited ETT, OGT Lungs: coarse vincenzo BS CV: RRR Abdomen: Soft, non-tender; umbilical hernia Extremities: no edema, no cyanosis Skin: No rash. Psych: no agitated - Constitutional Vitals: Vital Signs Temp Pulse Resp BP Pulse Ox 98.5 F 97 H 23 117/76 95 12/02/18 12:00 12/02/18 14:30 12/02/18 14:30 12/02/18 14:30 12/02/18 14:30 Temperature -Last 24 Hours Temperature 98.5 F Temperature 98.2 F Temperature 98.9 F Temperature 99.1 F Temperature 98.9 F Temperature 98.2 F - Labs CBC & Chem 7: 12/02/18 07:50 12/02/18 05:11 Labs: Abnormal lab results 12/01/18 12/01/18 12/02/18 Range/Units 13:33 18:20 00:17 WBC (4.5-11.0) K/mm3 RBC (3.65-5.03) M/mm3 Hgb (11.8-15.2) gm/dl Hct (35.5-45.6) % MCV (84-94) fl MCH (28-32) pg RDW (13.2-15.2) % Plt Count (140-440) K/mm3 ABG pO2 (80.0-90.0) mm Hg ABG HCO3 (20.0-26.0) mmol/L ABG Base Excess (-2.0-3.0) mmol/L ABG Hemoglobin (14.0-18.0) gm/dl Oxyhemoglobin (95.0-99.0) % Potassium (3.6-5.0) mmol/L Chloride (98-107) mmol/L Carbon Dioxide (22-30) mmol/L BUN (9-20) mg/dL Creatinine (0.8-1.5) mg/dL Glucose (75-100) mg/dL POC Glucose 255 H 177 H 192 H (70-105) 12/02/18 12/02/18 12/02/18 Range/Units 03:40 05:11 05:26 WBC (4.5-11.0) K/mm3 RBC (3.65-5.03) M/mm3 Hgb (11.8-15.2) gm/dl Hct (35.5-45.6) % MCV (84-94) fl MCH (28-32) pg RDW (13.2-15.2) % Plt Count (140-440) K/mm3 ABG pO2 78.0 L (80.0-90.0) mm Hg ABG HCO3 16.4 L (20.0-26.0) mmol/L ABG Base Excess -6.2 L (-2.0-3.0) mmol/L ABG Hemoglobin 11.4 L (14.0-18.0) gm/dl Oxyhemoglobin 94.5 L (95.0-99.0) % Potassium 5.6 H D (3.6-5.0) mmol/L Chloride 113.0 H (98-107) mmol/L Carbon Dioxide 16 L (22-30) mmol/L BUN 73 H (9-20) mg/dL Creatinine 2.8 H (0.8-1.5) mg/dL Glucose 202 H (75-100) mg/dL POC Glucose 179 H (70-105) 12/02/18 12/02/18 Range/Units 07:50 11:57 WBC 4.1 L (4.5-11.0) K/mm3 RBC 3.01 L (3.65-5.03) M/mm3 Hgb 11.4 L (11.8-15.2) gm/dl Hct 34.1 L (35.5-45.6) % MCV 113 H (84-94) fl MCH 38 H (28-32) pg RDW 17.3 H (13.2-15.2) % Plt Count 40 L (140-440) K/mm3 ABG pO2 (80.0-90.0) mm Hg ABG HCO3 (20.0-26.0) mmol/L ABG Base Excess (-2.0-3.0) mmol/L ABG Hemoglobin (14.0-18.0) gm/dl Oxyhemoglobin (95.0-99.0) % Potassium (3.6-5.0) mmol/L Chloride (98-107) mmol/L Carbon Dioxide (22-30) mmol/L BUN (9-20) mg/dL Creatinine (0.8-1.5) mg/dL Glucose (75-100) mg/dL POC Glucose 140 H (70-105)
[2018-12-02 18:16] LABS: Hepatitis C Virus Antibody Non-Reactive (NonReactive)
[2018-12-02 19:12] LABS: Hepatitis B Surface Antigen Non-Reactive (Negative)
--- NOTE | 2018-12-02 19:56 | Progress Note ---
Assessment and Plan Assessment and plan: The high probability of a clinically significant, sudden or life threatening deterioration of the [] system(s) required my full and direct attention, intervention and personal management. The aggregate critical care time was [] minutes. This time is in addition to time spent performing reported procedures but includes the following: [x] Data Review and interpretation [x] Patient assessment and monitoring of vital signs [x] Documentation x[]x Medication orders and management - Patient Problems (1) Hypertension Current Visit: Yes Status: Acute Plan to address problem: Present patient has optimal control blood pressure. No changes in medical management. (2) Acute encephalopathy Current Visit: Yes Status: Acute Plan to address problem: Patient . Clinically not as alert as mentioned on this shift. Probably not secondary to HIV at this time. Most likely metabolic encephalopathy or infection versus electrolyte abnormality with hypernatremia. Patient scheduled to have MRI on Monday. Lumbar puncture under fluoroscopy and EEG as well. To establish neurologic function. (3) Acute renal insufficiency Current Visit: Yes Status: Acute Plan to address problem: Renal function also getting worse. Patient does not appear to be a great candidate for hemodialysis. Prognosis is extremely poorfamily member at bedside today. Attempt to call. Set up family meeting for Monday. (4) HIV (human immunodeficiency virus infection) Current Visit: Yes Status: Chronic Qualifiers: HIV symptom status: unspecified Qualified Code(s): B20 - Human immunodeficiency virus [HIV] disease Plan to address problem: Patient not able to really receive meds. Not sure of this plan some role with renal function. Patient appears to be hospice appropriate. (5) Acute CHF (congestive heart failure) Current Visit: No Status: Acute Qualifiers: Heart failure type: systolic Qualified Code(s): I50.21 - Acute systolic (congestive) heart failure (6) Sepsis Current Visit: No Status: Acute Qualifiers: Sepsis type: sepsis due to unspecified organism Sepsis acute organ dysfunction status: unspecified Qualified Code(s): A41.9 - Sepsis, unspecified organism Plan to address problem: He should've has ejection fraction of 15%. Very chronically ill. Prognosis remains extremely poor. We'll be difficult to maintain fluid balance at this particular time for prolonged periods on continue antihypertensives continue Lasix as we are doing. (7) Malnutrition Current Visit: No Status: Chronic Qualifiers: Protein-calorie malnutrition severity: mild Plan to address problem: Patient currently receiving alternative means of nutrition and dietitian consult. History Interval history: mr polanco appears to not have open eyes. . Now appears somewhat more worse than yesterday. He shouldn't relatively new to myself. Did not do much yesterday. Opening eyes to the family was significant. Not doing that today. No sedation. Hospitalist Physical - Constitutional Vitals: Temp Pulse Resp BP Pulse Ox 97.7 F 92 H 20 112/75 97 12/02/18 16:00 12/02/18 19:14 12/02/18 18:00 12/02/18 19:14 12/02/18 19:14 General appearance: Present: no acute distress, other (intubated on cpap) - EENT ENT: clear oral mucosa, dentition normal - Neck Neck: Present: supple, normal ROM - Respiratory Respiratory: bilateral: diminished, rhonchi, wheezing - Extremities Extremities: pulses intact, No edema, normal color Peripheral Pulses: within normal limits - Abdominal General gastrointestinal: soft, non-tender, hypoactive bowel sounds - Neurologic Neurologic: focal deficits, other (encephalopathic unresponsive) Results - Labs CBC & Chem 7: 12/02/18 07:50 12/02/18 05:11 Labs: Laboratory Last Values WBC 4.1 K/mm3 (4.5-11.0) L 12/02/18 07:50 RBC 3.01 M/mm3 (3.65-5.03) L 12/02/18 07:50 Hgb 11.4 gm/dl (11.8-15.2) L 12/02/18 07:50 Hct 34.1 % (35.5-45.6) L 12/02/18 07:50 MCV 113 fl (84-94) H 12/02/18 07:50 MCH 38 pg (28-32) H 12/02/18 07:50 MCHC 33 % (32-34) 12/02/18 07:50 RDW 17.3 % (13.2-15.2) H 12/02/18 07:50 Plt Count 40 K/mm3 (140-440) L 12/02/18 07:50 Lymph % (Auto) 5.4 % (13.4-35.0) L 11/29/18 13:39 Desha % (Auto) 4.9 % (0.0-7.3) 11/29/18 13:39 Eos % (Auto) 0.0 % (0.0-4.3) 11/29/18 13:39 Baso % (Auto) 0.2 % (0.0-1.8) 11/29/18 13:39 Lymph # 0.2 K/mm3 (1.2-5.4) L 11/29/18 13:39 Desha # 0.2 K/mm3 (0.0-0.8) 11/29/18 13:39 Eos # 0.0 K/mm3 (0.0-0.4) 11/29/18 13:39 Baso # 0.0 K/mm3 (0.0-0.1) 11/29/18 13:39 Seg Neutrophils % 89.5 % (40.0-70.0) H 11/29/18 13:39 Seg Neutrophils # 2.9 K/mm3 (1.8-7.7) 11/29/18 13:39 POC ABG pH 7.440 (7.35-7.45) 12/01/18 17:16 ABG pH 7.442 pH Units (7.350-7.450) 12/02/18 03:40 POC ABG pCO2 39.5 (35-45) 11/29/18 14:24 ABG pCO2 24.6 mm Hg 12/02/18 03:40 POC ABG pO2 92 (80-105) 12/01/18 17:16 ABG pO2 78.0 mm Hg (80.0-90.0) L 12/02/18 03:40 POC ABG HCO3 15.2 (22-26 mml/L) 12/01/18 17:16 ABG HCO3 16.4 mmol/L (20.0-26.0) L 12/02/18 03:40 POC ABG Total CO2 16 (23-27mmol/L) 12/01/18 17:16 POC ABG O2 Sat 98 12/01/18 17:16 ABG O2 Saturation 96.7 % (95.0-99.0) 12/02/18 03:40 ABG O2 Content 15.2 (0.0-44) 12/02/18 03:40 POC ABG Base Excess -9 ((-2) - (+3)mmol/L) 12/01/18 17:16 ABG Base Excess -6.2 mmol/L (-2.0-3.0) L 12/02/18 03:40 ABG Hemoglobin 11.4 gm/dl (14.0-18.0) L 12/02/18 03:40 ABG Carboxyhemoglobin 1.7 % (0.0-5.0) 12/02/18 03:40 ABG Methemoglobin 0.5 % (0.0-1.5) 12/02/18 03:40 VBG pH 7.186 (7.320-7.420) L* 11/29/18 13:39 94.5 % (95.0-99.0) L 12/02/18 03:40 25 % 12/02/18 03:40 Sodium 144 mmol/L (137-145) 12/02/18 05:11 Potassium 5.6 mmol/L (3.6-5.0) H D 12/02/18 05:11 Chloride 113.0 mmol/L (98-107) H 12/02/18 05:11 Carbon Dioxide 16 mmol/L (22-30) L 12/02/18 05:11 21 mmol/L 12/02/18 05:11 BUN 73 mg/dL (9-20) H 12/02/18 05:11 2.8 mg/dL (0.8-1.5) H 12/02/18 05:11 Estimated GFR 27 ml/min 12/02/18 05:11 26 % 12/02/18 05:11 Glucose 202 mg/dL (75-100) H 12/02/18 05:11 POC Glucose 261 (70-105) H 12/02/18 18:43 Lactic Acid 1.30 mmol/L (0.7-2.0) 11/29/18 14:42 Calcium 8.4 mg/dL (8.4-10.2) 12/02/18 05:11 0.60 mg/dL (0.1-1.2) 11/29/18 13:39 AST 68 units/L (5-40) H 11/29/18 13:39 ALT 54 units/L (7-56) 11/29/18 13:39 239 units/L (35-129) H 11/29/18 13:39 28.0 umol/L (25-60) 11/29/18 13:39 243 units/L (55-170) H 11/29/18 13:39 0.054 ng/mL (0.00-0.029) H 11/29/18 13:39 5.8 g/dL (6.3-8.2) L 11/29/18 13:39 3.0 g/dL (3.9-5) L 11/29/18 13:39 1.1 % 11/29/18 13:39 Triglycerides 68 mg/dL (2-149) 11/29/18 13:39 Cholesterol 95 mg/dL (50-199) 11/29/18 13:39 30 mg/dL (50-130) L 11/29/18 13:39 63 mg/dL (40-59) H 11/29/18 13:39 1.50 % 11/29/18 13:39 Yellow (Yellow) 11/29/18 13:16 Clear (Clear) 11/29/18 13:16 5.0 (5.0-7.0) 11/29/18 13:16 Ur Specific [place] 1.018 (1.003-1.030) 11/29/18 13:16 30 mg/dl mg/dL (Negative) 11/29/18 13:16 Neg mg/dL (Negative) 11/29/18 13:16 Neg mg/dL (Negative) 11/29/18 13:16 Neg (Negative) 11/29/18 13:16 Neg (Negative) 11/29/18 13:16 Neg (Negative) 11/29/18 13:16 < 2.0 mg/dL (<2.0) 11/29/18 13:16 Ur Leukocyte Esterase Neg (Negative) 11/29/18 13:16 5.0 /HPF (0.0-6.0) 11/29/18 13:16 2.0 /HPF (0.0-6.0) 11/29/18 13:16 1+ /HPF (Negative) 11/29/18 13:16 173.8 mg/dL (0.1-20.0) H 11/30/18 14:20 18 mmol/L 11/30/18 14:20 Random Vancomycin 10.7 ug/mL (0-40.0) 12/01/18 13:20 Salicylates < 0.3 mg/dL (2.8-20.0) L 11/29/18 13:39 Presumptive negative 11/29/18 13:16 Presumptive negative 11/29/18 13:16 Acetaminophen < 5.0 ug/mL (10.0-30.0) L 11/29/18 13:39 Ur Barbiturates Screen Presumptive negative 11/29/18 13:16 Ur Phencyclidine Scrn Presumptive negative 11/29/18 13:16 Ur Amphetamines Screen Presumptive negative 11/29/18 13:16 U Benzodiazepines Scrn Presumptive negative 11/29/18 13:16 Presumptive negative 11/29/18 13:16 U Marijuana (THC) Screen Presumptive negative 11/29/18 13:16 Disclamer 11/29/18 13:16 Non-reactive (NonReactive) 12/01/18 04:08 Hepatitis A IgM Ab Non-reactive (NonReactive) 12/02/18 17:04 Hep Bs Antigen Non-reactive (Negative) 12/02/18 17:04 Hep B Core IgM Ab Non-reactive (NonReactive) 12/02/18 17:04 Non-reactive (NonReactive) 12/02/18 17:04 Blood Type B POSITIVE 11/29/18 13:39 Antibody Screen Negative 11/29/18 13:39 - Imaging and Cardiology EKG: report reviewed Chest x-ray: report reviewed CT scan - abdomen: report reviewed CT Scan - head: report reviewed, image reviewed Active Medications - Current Medications Current Medications: Generic Name Dose Route Start Last Admin Trade Name Freq PRN Reason Stop Dose Admin Abacavir Sulfate 600 mg 11/30/18 16:00 12/02/18 10:27 Ziagen PO 600 mg DAILY KEN Administration Albuterol 2.5 mg 11/30/18 00:17 Proventil IH Q4HRT PRN Shortness Of Breath Albuterol/Ipratropium 1 ampul 11/30/18 08:00 12/02/18 19:16 Duoneb *Not For Prn Use* IH 1 ampul QIDRT KEN Administration Lipase/Protease/Amylase 1 each 11/30/18 11:24 Pancreazmahendra Manning 10,500 Unit FEEDTUBE PRN PRN For Clogged Feeding Tube Famotidine 10 mg 11/30/18 10:00 12/02/18 10:25 Pepcid IV 10 mg BID KEN Administration Sodium Chloride 1,000 mls @ 75 mls/hr 11/30/18 07:00 12/02/18 18:43 Nacl 0.45% 1000 Ml IV 12/04/18 11:00 75 mls/hr DIRECT KEN Administration Cefepime HCl 2 gm in 100 mls @ 200 mls/hr 11/30/18 22:00 12/01/18 21:50 Maxipime/Ns 2 Gm/100 Ml IV 200 mls/hr Q24H KEN Administration Protocol Insulin Human Lispro 0 unit 11/30/18 07:00 12/02/18 18:41 Humalog SUB-Q 4 unit Q6HR KEN Administration Protocol Lamivudine 100 mg 12/02/18 10:00 12/02/18 10:27 Epivir PO 100 mg DAILY KEN Administration Metoclopramide HCl 5 mg 11/30/18 00:22 Reglan IV Q6H PRN Nausea And Vomiting Ondansetron HCl 4 mg 11/30/18 00:06 Zofran IV Q8H PRN Nausea And Vomiting Raltegravir 400 mg 11/30/18 16:00 12/02/18 10:26 Isentress PO 400 mg BID KEN Administration Simple Syrup 15 ml 11/30/18 11:24 Simple Syrup FEEDTUBE PRN PRN Hypoglycemia Simple Syrup 30 ml 11/30/18 11:24 Simple Syrup FEEDTUBE PRN PRN Hypoglycemia Sodium Bicarbonate 325 mg 11/30/18 11:24 Sodium Bicarbonate FEEDTUBE PRN PRN For Clogged Feeding Tube Sodium Bicarbonate 325 mg 12/01/18 07:42 Sodium Bicarbonate FEEDTUBE PRN PRN For Clogged Feeding Tube Sodium Chloride 10 ml 11/30/18 10:00 12/02/18 10:28 Sodium Chloride Flush Syringe 10 Ml IV 10 ml BID KEN Administration Sodium Chloride 10 ml 11/30/18 00:06 Sodium Chloride Flush Syringe 10 Ml IV PRN PRN LINE FLUSH Zidovudine 300 mg 11/30/18 16:00 12/02/18 10:27 Retrovir PO 300 mg BID KEN Administration Nutrition/Malnutrition Assess - Dietary Evaluation Nutrition/Malnutrition Findings: Nutrition Notes Start: 11/30/18 08:33 Freq: Status: Active Protocol: Document 11/30/18 08:33 LM (Rec: 11/30/18 08:43 LM [id number]) Nutrition Notes Need for Assessment generated from: MD Order Initial or Follow up Assessment Current Diagnosis COPD,Diabetes,Hypertension Other Pertinent Diagnosis dementia, HIV, AMS Current Diet NPO Labs/Tests Reviewed Pertinent Medications Reviewed Height 6 ft 4 in Weight 79.2 kg [place] Body Weight (kg) 91.81 BMI 21.2 Subjective/Other Information MD consult for TF and skin risk. Pt on vent at time of visit. Josiah score of 13. Noticed dry scaley skin on lower limbs/feet. Burn Absent Trauma Absent #1 Nutrition Diagnosis Inadequate oral intake Etiology Mechanical vent As Evidenced by Signs and Symptoms Pt NPO Is patient on ventilator? Yes Is Patient Ambulatory and/or Out of Bed No REE-([place]-confined to bed) 1966.356 Calculation Used for Recommendations [facility] Additional Notes Protein: 79-95g (1.1.2g/kg) Fluids: 1 ml/kcal Nutrition Intervention Change Diet Order: TF Nutrition Support: Glucerna at 70 ml/hr Flush 100 ml q4hr Kcal 2,016 Protein (gm) 100 Fluid (mL) 1,352 Goal #1 TF start/tolerance Follow-Up By: 12/03/18 Additional Comments F/U for TF start/tolerance
--- NOTE | 2018-12-02 20:47 | Progress Note ---
Assessment and Plan 1. Acute kidney injury: Vasomotor CONNIE superimposed on CKD in the setting of hypotension. Renal US negative for hydro. Continue IV fluids. Monitor renal function. Renal prognosis is guarded. Avoid nephrotoxic agents. Meds dosage based on GFR. 2. FEN: Hyperkalemia, kayexalate. Hypernatremia, continue free water flushes. Monitor lytes. 3. Acute hypoxic respiratory failure: Intubated on vent. 4. Acute Metabolic Encephalopathy. 5. Elevated troponin. 6. Type 2 DM. Subjective Date of service: 12/02/18 Principal diagnosis: sepsis Interval history: Patient was not seen for this encounter. Objective - Vital Signs Vital signs: Vital Signs - 12hr 12/02/18 12/02/18 12/02/18 09:00 09:15 09:30 Temperature Pulse Rate 99 H 97 H 95 H Pulse Rate [ Anterior Bilateral Throughout] Pulse Rate [ Apical] Respiratory 22 19 21 Rate Respiratory Rate [Anterior Abdomen] Respiratory Rate [Anterior Bilateral Throughout] Blood Pressure 99/71 107/73 104/73 O2 Sat by Pulse 96 95 94 Oximetry 12/02/18 12/02/18 12/02/18 09:45 10:00 10:15 Temperature Pulse Rate 96 H 97 H 90 Pulse Rate [ Anterior Bilateral Throughout] Pulse Rate [ Apical] Respiratory 23 21 24 Rate Respiratory 21 Rate [Anterior Abdomen] Respiratory Rate [Anterior Bilateral Throughout] Blood Pressure 103/77 105/74 105/74 O2 Sat by Pulse 97 96 98 Oximetry 12/02/18 12/02/18 12/02/18 10:30 10:45 10:47 Temperature Pulse Rate 97 H 114 H 94 H Pulse Rate [ Anterior Bilateral Throughout] Pulse Rate [ Apical] Respiratory 23 25 H Rate Respiratory Rate [Anterior Abdomen] Respiratory Rate [Anterior Bilateral Throughout] Blood Pressure 107/75 112/79 112/79 O2 Sat by Pulse 95 95 97 Oximetry 12/02/18 12/02/18 12/02/18 11:00 11:15 11:18 Temperature Pulse Rate 97 H 99 H 100 H Pulse Rate [ Anterior Bilateral Throughout] Pulse Rate [ Apical] Respiratory 23 18 Rate Respiratory Rate [Anterior Abdomen] Respiratory Rate [Anterior Bilateral Throughout] Blood Pressure 110/78 110/78 110/82 O2 Sat by Pulse 99 100 99 Oximetry 12/02/18 12/02/18 12/02/18 11:30 11:45 12:00 Temperature 98.5 F Pulse Rate 99 H 98 H 100 H Pulse Rate [ Anterior Bilateral Throughout] Pulse Rate [ 97 H Apical] Respiratory 21 19 23 Rate Respiratory Rate [Anterior Abdomen] Respiratory Rate [Anterior Bilateral Throughout] Blood Pressure 103/71 103/71 104/73 O2 Sat by Pulse 97 97 96 Oximetry 12/02/18 12/02/18 12/02/18 12:15 12:30 12:45 Temperature Pulse Rate 101 H 99 H 101 H Pulse Rate [ Anterior Bilateral Throughout] Pulse Rate [ Apical] Respiratory 25 H 23 23 Rate Respiratory Rate [Anterior Abdomen] Respiratory Rate [Anterior Bilateral Throughout] Blood Pressure 106/79 112/77 110/78 O2 Sat by Pulse 96 97 94 Oximetry 12/02/18 12/02/18 12/02/18 13:00 13:15 13:30 Temperature Pulse Rate 104 H 105 H 103 H Pulse Rate [ Anterior Bilateral Throughout] Pulse Rate [ Apical] Respiratory 25 H 23 21 Rate Respiratory Rate [Anterior Abdomen] Respiratory Rate [Anterior Bilateral Throughout] Blood Pressure 112/69 108/74 110/79 O2 Sat by Pulse 93 93 97 Oximetry 12/02/18 12/02/18 12/02/18 13:45 14:00 14:15 Temperature Pulse Rate 96 H 100 H 101 H Pulse Rate [ 97 H Anterior Bilateral Throughout] Pulse Rate [ Apical] Respiratory 23 22 24 Rate Respiratory Rate [Anterior Abdomen] Respiratory 26 H Rate [Anterior Bilateral Throughout] Blood Pressure 113/71 110/63 113/69 O2 Sat by Pulse 95 97 Oximetry 12/02/18 12/02/18 12/02/18 14:30 15:00 16:00 Temperature 97.7 F Pulse Rate 97 H 100 H 100 H Pulse Rate [ Anterior Bilateral Throughout] Pulse Rate [ 98 H Apical] Respiratory 23 24 22 Rate Respiratory Rate [Anterior Abdomen] Respiratory Rate [Anterior Bilateral Throughout] Blood Pressure 117/76 120/78 113/71 O2 Sat by Pulse 95 95 94 Oximetry 12/02/18 12/02/18 12/02/18 17:00 17:26 18:00 Temperature Pulse Rate 99 H 99 H Pulse Rate [ 95 H Anterior Bilateral Throughout] Pulse Rate [ Apical] Respiratory 24 20 Rate Respiratory Rate [Anterior Abdomen] Respiratory 22 Rate [Anterior Bilateral Throughout] Blood Pressure 108/72 113/74 O2 Sat by Pulse 94 Oximetry 12/02/18 12/02/18 12/02/18 19:14 19:51 19:54 Temperature 98.8 F Pulse Rate 92 H Pulse Rate [ 96 H Anterior Bilateral Throughout] Pulse Rate [ Apical] Respiratory Rate Respiratory Rate [Anterior Abdomen] Respiratory 19 Rate [Anterior Bilateral Throughout] Blood Pressure 112/75 O2 Sat by Pulse 97 Oximetry - Lab 12/02/18 07:50 12/02/18 05:11 Most recent lab results ABG pH 7.442 pH Units (7.350-7.450) 12/02/18 03:40 ABG pCO2 24.6 mm Hg 12/02/18 03:40 ABG pO2 78.0 mm Hg (80.0-90.0) L 12/02/18 03:40 ABG HCO3 16.4 mmol/L (20.0-26.0) L 12/02/18 03:40 ABG O2 Saturation 96.7 % (95.0-99.0) 12/02/18 03:40 Calcium 8.4 mg/dL (8.4-10.2) 12/02/18 05:11 173.8 mg/dL (0.1-20.0) H 11/30/18 14:20 18 mmol/L 11/30/18 14:20 Medications & Allergies - Medications Allergies/Adverse Reactions: Allergies No Known Allergies Allergy (Unverified 03/29/16 00:43) Home Medications: Home Medications Medication Instructions Recorded Confirmed Last Taken Type Aspirin [Aspirin BABY CHEW TAB] 81 mg PO QDAY #30 tab.chew 11/15/17 11/29/18 Unknown Rx Amlodipine Besylate 10 mg PO QDAY 05/21/18 11/29/18 Unknown History Carvedilol 6.25 mg PO BID 05/21/18 11/29/18 Unknown History Isentress 400 mg PO Q12HR 05/21/18 11/29/18 Unknown History Rosuvastatin Calcium 10 mg PO DAILY 05/21/18 11/29/18 Unknown History Memantine [Namenda] 5 mg PO QDAY #30 tablet 11/01/18 11/29/18 Unknown Rx Albuterol Sulfate [Albuterol 0.63% 0.63 mg IH TID PRN 30 Days ml 11/07/18 11/29/18 Unknown Rx NEBS] AtorvaSTATin [Lipitor] 20 mg PO QDAY #30 tablet 11/07/18 11/29/18 Unknown Rx Famotidine [Pepcid] 10 mg PO BID #60 tablet 11/07/18 11/29/18 Unknown Rx Ipratropium/Albuterol Sulfate 1 ampul IH Q6HR 30 Days ampul.neb 11/07/18 11/29/18 Unknown Rx [DUONEB *Not for PRN Use*] Tamsulosin [Flomax] 0.4 mg PO QHS #30 capsule 11/07/18 11/29/18 Unknown Rx Zidovudine 300 mg PO DAILY 11/09/18 11/29/18 Unknown History Insulin Regular, Human [HumuLIN R] 0 unit SQ AC #1 vial 11/12/18 11/29/18 Unknown Rx Active Medications: Generic Name Dose Route Start Last Admin Trade Name Freq PRN Reason Stop Dose Admin Abacavir Sulfate 600 mg 11/30/18 16:00 12/02/18 10:27 Ziagen PO 600 mg DAILY KEN Administration Albuterol 2.5 mg 11/30/18 00:17 Proventil IH Q4HRT PRN Shortness Of Breath Albuterol/Ipratropium 1 ampul 11/30/18 08:00 12/02/18 19:16 Duoneb *Not For Prn Use* IH 1 ampul QIDRT KEN Administration Lipase/Protease/Amylase 1 each 11/30/18 11:24 Pancreaze 10,500 Unit FEEDTUBE PRN PRN For Clogged Feeding Tube Famotidine 10 mg 11/30/18 10:00 12/02/18 10:25 Pepcid IV 10 mg BID KEN Administration Sodium Chloride 1,000 mls @ 75 mls/hr 11/30/18 07:00 12/02/18 18:43 Nacl 0.45% 1000 Ml IV 12/04/18 11:00 75 mls/hr DIRECT KEN Administration Cefepime HCl 2 gm in 100 mls @ 200 mls/hr 11/30/18 22:00 12/01/18 21:50 Maxipime/Ns 2 Gm/100 Ml IV 200 mls/hr Q24H KEN Administration Protocol Insulin Human Lispro 0 unit 11/30/18 07:00 12/02/18 18:41 Humalog SUB-Q 4 unit Q6HR KEN Administration Protocol Lamivudine 100 mg 12/02/18 10:00 12/02/18 10:27 Epivir PO 100 mg DAILY KEN Administration Metoclopramide HCl 5 mg 11/30/18 00:22 Reglan IV Q6H PRN Nausea And Vomiting Ondansetron HCl 4 mg 11/30/18 00:06 Zofran IV Q8H PRN Nausea And Vomiting Raltegravir 400 mg 11/30/18 16:00 12/02/18 10:26 Isentress PO 400 mg BID KEN Administration Simple Syrup 15 ml 11/30/18 11:24 Simple Syrup FEEDTUBE PRN PRN Hypoglycemia Simple Syrup 30 ml 11/30/18 11:24 Simple Syrup FEEDTUBE PRN PRN Hypoglycemia Sodium Bicarbonate 325 mg 11/30/18 11:24 Sodium Bicarbonate FEEDTUBE PRN PRN For Clogged Feeding Tube Sodium Bicarbonate 325 mg 12/01/18 07:42 Sodium Bicarbonate FEEDTUBE PRN PRN For Clogged Feeding Tube Sodium Chloride 10 ml 11/30/18 10:00 12/02/18 10:28 Sodium Chloride Flush Syringe 10 Ml IV 10 ml BID KEN Administration Sodium Chloride 10 ml 11/30/18 00:06 Sodium Chloride Flush Syringe 10 Ml IV PRN PRN LINE FLUSH Zidovudine 300 mg 11/30/18 16:00 12/02/18 10:27 Retrovir PO 300 mg BID KEN Administration
[2018-12-02] MEDS: MAXIPIME/NS 2 GM/100 ML 2 GM/100 ML BAG IV SCH (21:48)
[2018-12-03] MEDS: HumaLOG SUB-Q SCH ×4 (00:24→17:48)
[2018-12-03 05:30] LABS: Hematocrit 33.1 % (35.5-45.6); Hemoglobin 11.3 gm/dl (11.8-15.2); Mean Corpuscular HGB Conc 34 % (32-34); Red Blood Count 2.96 M/mm3 (3.65-5.03); Red Cell Distribution Width 16.7 % (13.2-15.2)
[2018-12-03 05:32] LABS: Mean Corpuscular Volume 112 fl (84-94); Platelet Count 38 K/mm3 (140-440)
[2018-12-03 05:54] LABS: Calcium 8.3 mg/dL (8.4-10.2)
[2018-12-03] MEDS: DUONEB *Not for PRN Use IH SCH ×4 (08:12→19:53)
[2018-12-03] MEDS: ZIAGEN PO SCH (09:13)
[2018-12-03] MEDS: ISENTRESS PO SCH ×2 (09:14→21:35)
[2018-12-03] MEDS: RETROVIR PO SCH ×2 (09:14→21:36)
[2018-12-03] MEDS: EPIVIR PO SCH (09:14)
[2018-12-03] MEDS: NACL 0.45% 1000 ML 1,000 ML IV SCH ×2 (09:15→21:36)
[2018-12-03] MEDS: PEPCID IV SCH ×2 (09:40→21:34)
[2018-12-03] MEDS: SODIUM CHLORIDE FLUSH SYRINGE 10 ML IV SCH ×2 (10:00→21:34)
[2018-12-03] MEDS ORDERED: PANCREAZE DR 10,500 UNIT FEEDTUBE PRN (10:42)
[2018-12-03] MEDS ORDERED: SODIUM BICARBONATE FEEDTUBE PRN (10:42)
[2018-12-03] MEDS ORDERED: SIMPLE SYRUP FEEDTUBE PRN ×2 (10:42)
--- NOTE | 2018-12-03 11:38 | Progress Note ---
Assessment and Plan Cultures: 11/29 BCx - NGTD 11/29 UCx - NGTD serum Crypto Ag negative Assessment: : 73 yo M PMHx HIV, HTN, HLD admitted with AMS 1. SIRS possible sepsis - hypothermia and pancytopenia on admission and negative blood cultures. Unclear source. Hypothermia resolved. Etiology ?hormonal (thyroid/Nodaway's) v/s opportunistic fungi like histoplasma seen in HIV patients causing Nodaway's (however last reported CD4 250) 2. Altered mental status - unclear?. HIV related? some better. Possibly due to ongoing microvascular disease with ischemia. Able to passively move neck on exam, but difficult to assess for meningismus. Continue empiric antibiotics for now with cefepime 3. HIV - Well controlled at recent visit. Accidentally ordered qualitative VL last time, but genotype was unable to be performed thus meaning the VL was at least under 1000, and most likely undetectable. CD4 ~ 250. Continue home regimen of raltegravir, lamivudine, abacavir, zidovudine. 4. CONNIE -better 5. Pancytopenia mainly Thrombocytopenia: ? HIV, worsening 6. Acute respiratory failure: intubated for airway protection. Recommendations: - continue cefepime 2g q12h D5 - obtain lumbar puncture ordered yesterday, CSF for cell count, diff, culture, glucose, protein, CMV DNA PCR, HSV DNA PCR, JAREK DNA PCR, VDRL - obtain neuro consult, EEG - Brain MRI unable to obtain during weekend - check am cortisol - ordered - check viral hepatitis panel - ordered - check Histoplasma urine antigen - ordered - continue ART - abacavir, raltegravir, zidovudine. Renally dosed lamivudine to 100mg daily. Will follow. Dr Quinton cantu tomorrow. Wilda Hodges MD Infectious Diseases Histopath [facility] M [phone] O [phone] Subjective Date of service: 12/03/18 Principal diagnosis: sepsis Interval history: Remains intubated, more alert off sedative, no fever, RT attempting CPAP trial, no need for pressors last 24h Objective - Exam Narrative Exam: General appearance: more alert on the vent Eyes: anicteric sclerae, moist conjunctivae HENT: Atraumatic; oropharynx limited ETT, OGT Lungs: coarse vincenzo BS CV: irregular HS Abdomen: Soft, non-tender; umbilical hernia Extremities: no edema, no cyanosis Skin: No rash. Psych: no agitated - Constitutional Vitals: Vital Signs Temp Pulse Resp BP Pulse Ox 97.8 F 91 H 20 110/75 96 12/03/18 08:00 12/03/18 11:00 12/03/18 11:00 12/03/18 11:00 12/03/18 11:00 Temperature -Last 24 Hours Temperature 97.8 F Temperature 98.7 F Temperature 99.6 F Temperature 99.2 F Temperature 98.8 F Temperature 97.7 F Temperature 98.5 F - Labs CBC & Chem 7: 12/03/18 04:06 12/03/18 04:06 Labs: Abnormal lab results 12/02/18 12/02/18 12/02/18 Range/Units 11:57 18:40 18:43 WBC (4.5-11.0) K/mm3 RBC (3.65-5.03) M/mm3 Hgb (11.8-15.2) gm/dl Hct (35.5-45.6) % MCV (84-94) fl MCH (28-32) pg RDW (13.2-15.2) % Plt Count (140-440) K/mm3 Sodium (137-145) mmol/L Chloride (98-107) mmol/L Carbon Dioxide (22-30) mmol/L BUN (9-20) mg/dL Creatinine (0.8-1.5) mg/dL Glucose (75-100) mg/dL POC Glucose 140 H 286 H 261 H (70-105) Calcium (8.4-10.2) mg/dL 12/02/18 12/03/18 12/03/18 Range/Units 23:55 04:06 04:06 WBC 4.4 L (4.5-11.0) K/mm3 RBC 2.96 L (3.65-5.03) M/mm3 Hgb 11.3 L (11.8-15.2) gm/dl Hct 33.1 L (35.5-45.6) % MCV 112 H (84-94) fl MCH 38 H (28-32) pg RDW 16.7 H (13.2-15.2) % Plt Count 38 L (140-440) K/mm3 Sodium 146 H (137-145) mmol/L Chloride 112.5 H (98-107) mmol/L Carbon Dioxide 18 L (22-30) mmol/L BUN 71 H (9-20) mg/dL Creatinine 2.5 H (0.8-1.5) mg/dL Glucose 258 H (75-100) mg/dL POC Glucose 303 H (70-105) Calcium 8.3 L (8.4-10.2) mg/dL 12/03/18 Range/Units 05:17 WBC (4.5-11.0) K/mm3 RBC (3.65-5.03) M/mm3 Hgb (11.8-15.2) gm/dl Hct (35.5-45.6) % MCV (84-94) fl MCH (28-32) pg RDW (13.2-15.2) % Plt Count (140-440) K/mm3 Sodium (137-145) mmol/L Chloride (98-107) mmol/L Carbon Dioxide (22-30) mmol/L BUN (9-20) mg/dL Creatinine (0.8-1.5) mg/dL Glucose (75-100) mg/dL POC Glucose 328 H (70-105) Calcium (8.4-10.2) mg/dL
--- NOTE | 2018-12-03 13:37 | Progress Note ---
Assessment and Plan Assessment and plan: Patient is a 73 yo man from [facility] with severe end-stage co-morbities including HIV, type 2 DM, NSTEMI type 2, hyperkalemia, hypernatremia, malnutrition, severe CHF with EF 15-20%, Dementia, CVA with SAH after fall here at [facility] on 05/22/18 with transferred to [facility], recurrent bouts of hypog lycmia, who had been admitted 3 times this month of November 2018. Initially he was admitted on 10/24/18 to 11/01/18 due to AMS, new CVA was ruled out by MRI but did show chronic infarcts in the right parietal lobe and the right MCA [employer] watershed territory and chronic lacunar infarct in the right paracentral [place] area. It was recommended that patient go to SNF but refused and took him home. He returned 2 days later due to hypoglycemia, it appears he wasn't eating enough but still taking DM medications. He was then discharged to [facility] on 11/07/2018. He returned 2 days later on 11/09/2018 due to hypoxemia and hypoglycemia again. He was discharged back to the OR on . Now he returns to the ED on 11/29/18 with severe worsening AMS GCS of 5 requiring Intubation. I do not know why he is on Fentanyl drip. * CT head without contrast Impression: There is continued extensive microvascula r angiopathy as detailed...without CT evidence of acute ICH. * pCXR Impression: Minimal interstitial edema, ngt in stomach, needs advancing 5-10 cm, borderline cardiomegaly, no consolidation or effusion * Abd XRAY after NGT advancement, shows it is in the correct position Acute Metabolic Encephalopathy, poa, work up in progress: consulted Neurology, input noted Acute respiratory failure >96 hours poa s/p ETT placement: consulted Pulmonology, input noted Acute on chronic systolic heart failure (congestive heart failure) 15-20%, mild: treat medically, bp borderline too low for IV lasix, consulted Cardiology, input noted HIV (human immunodeficiency virus infection): ID consulted, input noted Acute renal insufficiency, ATN + vasomotor nephropathy, poa: monitor uop q sh ift, nephrology consulted, urine electrolytes, strict I/O, monitor uop q shift, monitor fluid balance, monitor serum creatnine, Type 2 DM on Insulin with recurrent hypoglycemia: treat with SSI, ADA Severe malnutrition, as evidence by decubitus ulcers, inadequate nutritional intake, and muscle wasting. poa: consult Archival Records Clerk Decubitus ulcers at least stage 3: Consult wound care Hypernatremia: Likely from dehydration, treat with free water, monitor bmp closely DVT prophylaxis: SCD to BLE while in bed, on d/c a/c Severe pancytopenia, plt count only 48: consulted Heme/onc Disposition: continue inpatient ICU care SIRS possible sepsis, poa - ID is following, negative blood cultures. Unclear source. Plan: - continue cefepime 2g q12h D5 - obtain lumbar puncture ordered yesterday, CSF for cell count, diff, culture, glucose, protein, CMV DNA PCR, HSV DNA PCR, JAREK DNA PCR, VDRL - obtain neuro consult, EEG - Brain MRI unable to obtain during weekend - check am cortisol - ordered - check viral hepatitis panel - ordered - check Histoplasma urine antigen - ordered - continue ART - abacavir, raltegravir, zidovudine. Renally dosed lamivudine to 100mg daily. CCT 33 minutes History Interval history: Patient was seen and examined. Follow-up on current diagnosis of AMS. No overnight events reported to me. Imaging, nursing note, chart, labs and old chart reviewed. I called the NOK in EMR, his son @ [phone], no answer at 1144am Hospitalist Physical - Physical exam Narrative exam: Gen: cachetic, intubated and sedated on fentanyl drip HEENT: NCAT, pupils pinpoint Neck: supple, no adenopathy, no thyromegaly, CVS/Heart: RRR, normal S1S2, pulses present bilaterally Chest/Lungs: diminished BS, Symmetrical chest expansion, good air entry bilaterally GI/Abdomen: soft, NTND, good bowel sounds, no guarding or rebound /Bladder: no suprapubic tenderness, no CVA or paraspinal tenderness Extermity/Skin: ble edema MSK: intubated and sedated Neuro: intubated and sedated Psych: intubated and sedated - Constitutional Vitals: Temp Pulse Resp BP Pulse Ox 98.4 F 98 H 19 110/74 99 12/03/18 12:00 12/03/18 13:00 12/03/18 13:00 12/03/18 13:12/03/18 12:42 General appearance: Present: no acute distress, other (intubated on cpap) Results - Labs CBC & Chem 7: 12/03/18 04:06 12/03/18 04:06 Labs: Laboratory Last Values WBC 4.4 K/mm3 (4.5-11.0) L 12/03/18 04:06 RBC 2.96 M/mm3 (3.65-5.03) L 12/03/18 04:06 Hgb 11.3 gm/dl (11.8-15.2) L 12/03/18 04:06 Hct 33.1 % (35.5-45.6) L 12/03/18 04:06 MCV 112 fl (84-94) H 12/03/18 04:06 MCH 38 pg (28-32) H 12/03/18 04:06 MCHC 34 % (32-34) 12/03/18 04:06 RDW 16.7 % (13.2-15.2) H 12/03/18 04:06 Plt Count 38 K/mm3 (140-440) L 12/03/18 04:06 Lymph % (Auto) 5.4 % (13.4-35.0) L 11/29/18 13:39 [place] % (Auto) 4.9 % (0.0-7.3) 11/29/18 13:39 Eos % (Auto) 0.0 % (0.0-4.3) 11/29/18 13:39 Baso % (Auto) 0.2 % (0.0-1.8) 11/29/18 13:39 Lymph # 0.2 K/mm3 (1.2-5.4) L 11/29/18 13:39 [place] # 0.2 K/mm3 (0.0-0.8) 11/29/18 13:39 Eos # 0.0 K/mm3 (0.0-0.4) 11/29/18 13:39 Baso # 0.0 K/mm3 (0.0-0.1) 11/29/18 13:39 Seg Neutrophils % 89.5 % (40.0-70.0) H 11/29/18 13:39 Seg Neutrophils # 2.9 K/mm3 (1.8-7.7) 11/29/18 13:39 POC ABG pH 7.403 (7.35-7.45) 12/03/18 04:36 ABG pH 7.442 pH Units (7.350-7.450) 12/02/18 03:40 POC ABG pCO2 39.5 (35-45) 11/29/18 14:24 ABG pCO2 24.6 mm Hg 12/02/18 03:40 POC ABG pO2 87 (80-105) 12/03/18 04:36 ABG pO2 78.0 mm Hg (80.0-90.0) L 12/02/18 03:40 POC ABG HCO3 17.3 (22-26 mml/L) 12/03/18 04:36 ABG HCO3 16.4 mmol/L (20.0-26.0) L 12/02/18 03:40 POC ABG Total CO2 18 (23-27mmol/L) 12/03/18 04:36 POC ABG O2 Sat 97 12/03/18 04:36 ABG O2 Saturation 96.7 % (95.0-99.0) 12/02/18 03:40 ABG O2 Content 15.2 (0.0-44) 12/02/18 03:40 POC ABG Base Excess -7 ((-2) - (+3)mmol/L) 12/03/18 04:36 ABG Base Excess -6.2 mmol/L (-2.0-3.0) L 12/02/18 03:40 ABG Hemoglobin 11.4 gm/dl (14.0-18.0) L 12/02/18 03:40 ABG Carboxyhemoglobin 1.7 % (0.0-5.0) 12/02/18 03:40 ABG Methemoglobin 0.5 % (0.0-1.5) 12/02/18 03:40 VBG pH 7.186 (7.320-7.420) L* 11/29/18 13:39 94.5 % (95.0-99.0) L 12/02/18 03:40 25 % 12/03/18 04:36 Sodium 146 mmol/L (137-145) H 12/03/18 04:06 Potassium 4.0 mmol/L (3.6-5.0) D 12/03/18 04:06 Chloride 112.5 mmol/L (98-107) H 12/03/18 04:06 Carbon Dioxide 18 mmol/L (22-30) L 12/03/18 04:06 20 mmol/L 12/03/18 04:06 BUN 71 mg/dL (9-20) H 12/03/18 04:06 2.5 mg/dL (0.8-1.5) H 12/03/18 04:06 Estimated GFR 31 ml/min 12/03/18 04:06 28 % 12/03/18 04:06 Glucose 258 mg/dL (75-100) H 12/03/18 04:06 POC Glucose 288 (70-105) H 12/03/18 11:25 Lactic Acid 1.30 mmol/L (0.7-2.0) 11/29/18 14:42 Calcium 8.3 mg/dL (8.4-10.2) L 12/03/18 04:06 0.60 mg/dL (0.1-1.2) 11/29/18 13:39 AST 68 units/L (5-40) H 11/29/18 13:39 ALT 54 units/L (7-56) 11/29/18 13:39 239 units/L (35-129) H 11/29/18 13:39 28.0 umol/L (25-60) 11/29/18 13:39 243 units/L (55-170) H 11/29/18 13:39 0.054 ng/mL (0.00-0.029) H 11/29/18 13:39 5.8 g/dL (6.3-8.2) L 11/29/18 13:39 3.0 g/dL (3.9-5) L 11/29/18 13:39 1.1 % 11/29/18 13:39 Triglycerides 68 mg/dL (2-149) 11/29/18 13:39 Cholesterol 95 mg/dL (50-199) 11/29/18 13:39 30 mg/dL (50-130) L 11/29/18 13:39 63 mg/dL (40-59) H 11/29/18 13:39 1.50 % 11/29/18 13:39 Yellow (Yellow) 11/29/18 13:16 Clear (Clear) 11/29/18 13:16 5.0 (5.0-7.0) 11/29/18 13:16 Ur Specific [place] 1.018 (1.003-1.030) 11/29/18 13:16 30 mg/dl mg/dL (Negative) 11/29/18 13:16 Neg mg/dL (Negative) 11/29/18 13:16 Neg mg/dL (Negative) 11/29/18 13:16 Neg (Negative) 11/29/18 13:16 Neg (Negative) 11/29/18 13:16 Neg (Negative) 11/29/18 13:16 < 2.0 mg/dL (<2.0) 11/29/18 13:16 Ur Leukocyte Esterase Neg (Negative) 11/29/18 13:16 5.0 /HPF (0.0-6.0) 11/29/18 13:16 2.0 /HPF (0.0-6.0) 11/29/18 13:16 1+ /HPF (Negative) 11/29/18 13:16 173.8 mg/dL (0.1-20.0) H 11/30/18 14:20 18 mmol/L 11/30/18 14:20 Random Vancomycin 10.7 ug/mL (0-40.0) 12/01/18 13:20 Salicylates < 0.3 mg/dL (2.8-20.0) L 11/29/18 13:39 Presumptive negative 11/29/18 13:16 Presumptive negative 11/29/18 13:16 Acetaminophen < 5.0 ug/mL (10.0-30.0) L 11/29/18 13:39 Ur Barbiturates Screen Presumptive negative 11/29/18 13:16 Ur Phencyclidine Scrn Presumptive negative 11/29/18 13:16 Ur Amphetamines Screen Presumptive negative 11/29/18 13:16 U Benzodiazepines Scrn Presumptive negative 11/29/18 13:16 Presumptive negative 11/29/18 13:16 U Marijuana (THC) Screen Presumptive negative 11/29/18 13:16 Disclamer 11/29/18 13:16 Non-reactive (NonReactive) 12/01/18 04:08 RPR Nonreactive (Nonreactive) 12/02/18 17:04 Hepatitis A IgM Ab Non-reactive (NonReactive) 12/02/18 17:04 Hep Bs Antigen Non-reactive (Negative) 12/02/18 17:04 Hep B Core IgM Ab Non-reactive (NonReactive) 12/02/18 17:04 Non-reactive (NonReactive) 12/02/18 17:04 Blood Type B POSITIVE 11/29/18 13:39 Antibody Screen Negative 11/29/18 13:39 Active Medications - Current Medications Current Medications: Generic Name Dose Route Start Last Admin Trade Name Freq PRN Reason Stop Dose Admin Abacavir Sulfate 600 mg 11/30/18 16:00 12/03/18 09:13 Ziagen PO 600 mg DAILY KEN Administration Albuterol 2.5 mg 11/30/18 00:17 Proventil IH Q4HRT PRN Shortness Of Breath Albuterol/Ipratropium 1 ampul 11/30/18 08:00 12/03/18 12:44 Duoneb *Not For Prn Use* IH 1 ampul QIDRT KEN Administration Lipase/Protease/Amylase 1 each 12/03/18 10:[address] 10,500 Unit FEEDTUBE PRN PRN For Clogged Feeding Tube Famotidine 10 mg 11/30/18 10:00 12/03/18 09:40 Pepcid IV 10 mg BID KEN Administration Sodium Chloride 1,000 mls @ 75 mls/hr 11/30/18 07:00 12/03/18 09:15 Nacl 0.45% 1000 Ml IV 12/04/18 11:00 75 mls/hr DIRECT KEN Administration Cefepime HCl 2 gm in 100 mls @ 200 mls/hr 11/30/18 22:00 12/02/18 21:48 Maxipime/Ns 2 Gm/100 Ml IV 200 mls/hr Q24H KEN Administration Protocol Insulin Human Lispro 0 unit 11/30/18 07:00 12/03/18 12:47 Humalog SUB-Q 4 unit Q6HR KEN Administration Protocol Lamivudine 100 mg 12/02/18 10:00 12/03/18 09:14 Epivir PO 100 mg DAILY KEN Administration Metoclopramide HCl 5 mg 11/30/18 00:22 Reglan IV Q6H PRN Nausea And Vomiting Ondansetron HCl 4 mg 11/30/18 00:06 Zofran IV Q8H PRN Nausea And Vomiting Raltegravir 400 mg 11/30/18 16:00 12/03/18 09:14 Isentress PO 400 mg BID KEN Administration Simple Syrup 15 ml 12/03/18 10:42 Simple Syrup FEEDTUBE PRN PRN Hypoglycemia Simple Syrup 30 ml 12/03/18 10:42 Simple Syrup FEEDTUBE PRN PRN Hypoglycemia Sodium Bicarbonate 325 mg 12/03/18 10:42 Sodium Bicarbonate FEEDTUBE PRN PRN For Clogged Feeding Tube Sodium Chloride 10 ml 11/30/18 10:00 12/02/18 21:49 Sodium Chloride Flush Syringe 10 Ml IV 10 ml BID KEN Administration Sodium Chloride 10 ml 11/30/18 00:06 Sodium Chloride Flush Syringe 10 Ml IV PRN PRN LINE FLUSH Zidovudine 300 mg 11/30/18 16:00 12/03/18 09:14 Retrovir PO 300 mg BID KEN Administration Nutrition/Malnutrition Assess - Dietary Evaluation Nutrition/Malnutrition Findings: Nutrition Notes Start: 11/30/18 08:33 Freq: Status: Active Protocol: Document 12/03/18 10:11 LM (Rec: 12/03/18 10:42 LM [id number]) Nutrition Notes Initial or Follow up Reassessment Current Diagnosis Acute Kidney Injury,COPD, Diabetes,Hypertension Other Pertinent Diagnosis dementia, HIV, AMS Current Diet Glucerna at 70 ml/hr Labs/Tests Na 146 BUN 71 Cr 2.5 BG 258 Pertinent Medications Humalog Height 6 ft 4 in Weight 79.2 kg [place] Body Weight (kg) 91.81 BMI 21.2 Subjective/Other Information Tf running at 70 ml/hr. Pt tolerating TF. Pt remains on vent. Burn Absent Trauma Absent #1 Nutrition Diagnosis Inadequate oral intake Diagnosis Progress(for reassessment Continues documentation) Is patient on ventilator? Yes Is Patient Ambulatory and/or Out of Bed No REE-([facility]-confined to bed) 1966.356 Kcal/Kg value to use for calculation 27 Approximate Energy Requirements Using 2138 kcal/Kg Calculation Used for Recommendations Kcal/kg Additional Notes Protein: 95-158g (1.2-2g/kg) Fluids 1 ml/kcal or per MD Nutrition Intervention Change Diet Order: Continue TF Nutrition Support: Change to Nepro with Carbsteady at 50 ml/hr Flush 200 ml q4hr Kcal 2,160 Protein (gm) 97 Fluid (mL) 872 Goal #1 TF start/tolerance Follow-Up By: 12/04/18 Additional Comments F/U for new TF, renal labs
--- NOTE | 2018-12-03 16:50 | Progress Note ---
Assessment and Plan - Patient Problems (1) Dilated cardiomyopathy Current Visit: Yes Status: Acute Plan to address problem: Conservative cardiac medical therapy for chronic systolic left ventricular dysfunction. Otherwise, supportive care. Prognosis is guarded. Subjective Date of service: 12/03/18 Principal diagnosis: sepsis Interval history: The patient is unresponsive, on the vent. Heart rate and blood pressure are stable. Objective Vital Signs Temp Pulse Pulse Pulse Resp Resp Resp 12/03/18 16:33 91 H 12/03/18 16:32 99 H 12/03/18 16:00 98.7 F 99 H 106 H 17 12/03/18 15:00 97 H 12/03/18 14:00 98 H 12/03/18 13:00 98 H 12/03/18 12:44 92 H 12/03/18 12:42 101 H 12/03/18 12:00 98.4 F 96 H 101 H 12/03/18 11:00 91 H 12/03/18 10:12 91 H 12/03/18 10:08 91 H 12/03/18 10:00 100 H 16 12/03/18 09:00 97 H 12/03/18 08:12 101 H 12/03/18 08:07 98 H 12/03/18 08:00 97.8 F 100 H 96 H 12/03/18 07:00 94 H 12/03/18 06:00 100 H 12/03/18 05:00 99 H 12/03/18 04:00 99 H 98 H 12/03/18 03:46 80 12/03/18 03:43 99.6 F 12/03/18 03:01 98 H 12/03/18 02:00 104 H 12/03/18 01:00 95 H 12/03/18 00:09 99 H 12/03/18 00:00 98 H 88 12/02/18 23:34 99.2 F 12/02/18 23:10 99 H 12/02/18 23:00 98 H 12/02/18 22:00 98 H 20 12/02/18 21:00 96 H 12/02/18 20:01 96 H 12/02/18 20:00 97 H 12/02/18 19:54 98.8 F 12/02/18 19:51 96 H 19 12/02/18 19:14 92 H 12/02/18 19:00 98 H 19 12/02/18 18:00 99 H 20 12/02/18 17:26 95 H 22 12/02/18 17:00 99 H 24 BP Pulse Ox 12/03/18 16:33 12/03/18 16:32 107/83 99 12/03/18 16:00 107/83 97 12/03/18 15:00 105/76 98 12/03/18 14:00 111/76 98 12/03/18 13:00 110/74 12/03/18 12:44 12/03/18 12:42 105/71 99 12/03/18 12:00 105/71 96 12/03/18 11:00 110/75 96 12/03/18 10:12 110/77 98 12/03/18 10:08 110/77 98 12/03/18 10:00 110/77 98 12/03/18 09:00 109/77 96 12/03/18 08:12 12/03/18 08:07 106/77 98 12/03/18 08:00 106/77 97 12/03/18 07:00 111/76 97 12/03/18 06:00 114/83 12/03/18 05:00 111/76 97 12/03/18 04:00 110/79 98 12/03/18 03:46 106/74 99 12/03/18 03:43 12/03/18 03:01 106/74 97 12/03/18 02:00 103/69 96 12/03/18 01:00 109/76 98 12/03/18 00:09 109/77 100 12/03/18 00:00 109/77 100 12/02/18 23:34 12/02/18 23:10 108/74 99 12/02/18 23:00 107/74 98 12/02/18 22:00 108/74 98 12/02/18 21:00 105/66 98 12/02/18 20:01 107/73 97 12/02/18 20:00 98 12/02/18 19:54 12/02/18 19:51 12/02/18 19:14 112/75 97 12/02/18 19:00 112/75 96 12/02/18 18:00 113/74 94 12/02/18 17:26 12/02/18 17:00 108/72 - Physical Examination General: Other (unresponsive, on the vent) Neck: Positive: neck supple, trachea midline Cardiac: Positive: Reg Rate and Rhythm Lungs: Positive: Decreased Breath Sounds Neuro: Positive: Other (unresponsive, on the vent) Abdomen: Positive: Soft Skin: Positive: Clear Extremities: Absent: edema - Labs and Meds CBC 12/03/18 Range/Units 04:06 WBC 4.4 L (4.5-11.0) K/mm3 RBC 2.96 L (3.65-5.03) M/mm3 Hgb 11.3 L (11.8-15.2) gm/dl Hct 33.1 L (35.5-45.6) % Plt Count 38 L (140-440) K/mm3 Comprehensive Metabolic Panel 12/03/18 Range/Units 04:06 Sodium 146 H (137-145) mmol/L Potassium 4.0 D (3.6-5.0) mmol/L Chloride 112.5 H (98-107) mmol/L Carbon Dioxide 18 L (22-30) mmol/L BUN 71 H (9-20) mg/dL Creatinine 2.5 H (0.8-1.5) mg/dL Glucose 258 H (75-100) mg/dL Calcium 8.3 L (8.4-10.2) mg/dL - Imaging and Cardiology EKG: report reviewed
--- NOTE | 2018-12-03 17:13 | Event Note ---
Date: 12/02/18 [id number]
--- NOTE | 2018-12-03 19:23 | Progress Note ---
Assessment and Plan 1. Acute kidney injury: Vasomotor CONNIE superimposed on CKD in the setting of hypotension. Renal US negative for hydro. Continue IV fluids. Monitor renal function. Renal prognosis is guarded. Avoid nephrotoxic agents. Meds dosage based on GFR. 2. FEN: Hyperkalemia, improved with kayexalate. Hypernatremia, continue free water flushes. Monitor lytes. 3. Acute hypoxic respiratory failure: Intubated on vent. 4. Acute Metabolic Encephalopathy. 5. Elevated troponin. 6. Type 2 DM. Subjective Date of service: 12/03/18 Principal diagnosis: sepsis Interval history: Patient was seen and examined at the bedside. Objective - Vital Signs Vital signs: Vital Signs - 12hr 12/03/18 12/03/18 12/03/18 08:00 08:07 08:12 Temperature 97.8 F Pulse Rate 100 H 98 H Pulse Rate [ 101 H Anterior Bilateral Throughout] Pulse Rate [ 96 H Apical] Respiratory 18 Rate Respiratory Rate [Anterior Abdomen] Respiratory 22 Rate [Anterior Bilateral Throughout] Blood Pressure 106/77 106/77 O2 Sat by Pulse 97 98 Oximetry 12/03/18 12/03/18 12/03/18 09:00 10:00 10:08 Temperature Pulse Rate 97 H 100 H 91 H Pulse Rate [ Anterior Bilateral Throughout] Pulse Rate [ Apical] Respiratory 19 16 15 Rate Respiratory 21 Rate [Anterior Abdomen] Respiratory Rate [Anterior Bilateral Throughout] Blood Pressure 109/77 110/77 110/77 O2 Sat by Pulse 96 98 98 Oximetry 12/03/18 12/03/18 12/03/18 10:12 11:00 12:00 Temperature 98.4 F Pulse Rate 91 H 91 H 96 H Pulse Rate [ Anterior Bilateral Throughout] Pulse Rate [ 101 H Apical] Respiratory 20 16 Rate Respiratory Rate [Anterior Abdomen] Respiratory Rate [Anterior Bilateral Throughout] Blood Pressure 110/77 110/75 105/71 O2 Sat by Pulse 98 96 96 Oximetry 12/03/18 12/03/18 12/03/18 12:42 12:44 13:00 Temperature Pulse Rate 101 H 98 H Pulse Rate [ 92 H Anterior Bilateral Throughout] Pulse Rate [ Apical] Respiratory 19 Rate Respiratory Rate [Anterior Abdomen] Respiratory 16 Rate [Anterior Bilateral Throughout] Blood Pressure 105/71 110/74 O2 Sat by Pulse 99 Oximetry 12/03/18 12/03/18 12/03/18 14:00 15:00 16:00 Temperature 98.3 F Pulse Rate 98 H 97 H 99 H Pulse Rate [ Anterior Bilateral Throughout] Pulse Rate [ 106 H Apical] Respiratory 15 16 17 Rate Respiratory Rate [Anterior Abdomen] Respiratory Rate [Anterior Bilateral Throughout] Blood Pressure 111/76 105/76 107/83 O2 Sat by Pulse 98 98 97 Oximetry 12/03/18 12/03/18 12/03/18 16:32 16:33 17:00 Temperature Pulse Rate 99 H 99 H Pulse Rate [ 91 H Anterior Bilateral Throughout] Pulse Rate [ Apical] Respiratory 16 Rate Respiratory Rate [Anterior Abdomen] Respiratory 16 Rate [Anterior Bilateral Throughout] Blood Pressure 107/83 117/81 O2 Sat by Pulse 99 Oximetry 12/03/18 18:00 Temperature Pulse Rate 101 H Pulse Rate [ Anterior Bilateral Throughout] Pulse Rate [ Apical] Respiratory 14 Rate Respiratory Rate [Anterior Abdomen] Respiratory Rate [Anterior Bilateral Throughout] Blood Pressure 111/74 O2 Sat by Pulse 86 Oximetry - General Appearance General appearance: well-developed, appears stated age, intubated, other (on vent) EENT: ATNC, PERRL Neck: supple Respiratory: Present: Clear to Ascultation Cardiology: regular, S1S2, no murmurs Gastrointestinal: normoactive bowel sounds, no tenderness, no distended, other (Condom catheter) Integumentary: other (B/L LE dressing noted) Neurologic: other (opens eyes) Musculoskeletal: other (Trace LE edema noted) - Lab 12/03/18 04:06 12/03/18 04:06 Most recent lab results ABG pH 7.442 pH Units (7.350-7.450) 12/02/18 03:40 ABG pCO2 24.6 mm Hg 12/02/18 03:40 ABG pO2 78.0 mm Hg (80.0-90.0) L 12/02/18 03:40 ABG HCO3 16.4 mmol/L (20.0-26.0) L 12/02/18 03:40 ABG O2 Saturation 96.7 % (95.0-99.0) 12/02/18 03:40 Calcium 8.3 mg/dL (8.4-10.2) L 12/03/18 04:06 173.8 mg/dL (0.1-20.0) H 11/30/18 14:20 18 mmol/L 11/30/18 14:20 Medications & Allergies - Medications Allergies/Adverse Reactions: Allergies No Known Allergies Allergy (Unverified 03/29/16 00:43) Home Medications: Home Medications Medication Instructions Recorded Confirmed Last Taken Type Aspirin [Aspirin BABY CHEW TAB] 81 mg PO QDAY #30 tab.chew 11/15/17 11/29/18 Unknown Rx Amlodipine Besylate 10 mg PO QDAY 05/21/18 11/29/18 Unknown History Carvedilol 6.25 mg PO BID 05/21/18 11/29/18 Unknown History Isentress 400 mg PO Q12HR 05/21/18 11/29/18 Unknown History Rosuvastatin Calcium 10 mg PO DAILY 05/21/18 11/29/18 Unknown History Memantine [Namenda] 5 mg PO QDAY #30 tablet 11/01/18 11/29/18 Unknown Rx Albuterol Sulfate [Albuterol 0.63% 0.63 mg IH TID PRN 30 Days ml 11/07/18 11/29/18 Unknown Rx NEBS] AtorvaSTATin [Lipitor] 20 mg PO QDAY #30 tablet 11/07/18 11/29/18 Unknown Rx Famotidine [Pepcid] 10 mg PO BID #60 tablet 11/07/18 11/29/18 Unknown Rx Ipratropium/Albuterol Sulfate 1 ampul IH Q6HR 30 Days ampul.neb 11/07/18 11/29/18 Unknown Rx [DUONEB *Not for PRN Use*] Tamsulosin [Flomax] 0.4 mg PO QHS #30 capsule 11/07/18 11/29/18 Unknown Rx Zidovudine 300 mg PO DAILY 11/09/18 11/29/18 Unknown History Insulin Regular, Human [HumuLIN R] 0 unit SQ AC #1 vial 11/12/18 11/29/18 Unk nown Rx Active Medications: Generic Name Dose Route Start Last Admin Trade Name Freq PRN Reason Stop Dose Admin Abacavir Sulfate 600 mg 11/30/18 16:00 12/03/18 09:13 Ziagen PO 600 mg DAILY KEN Administration Albuterol 2.5 mg 11/30/18 00:17 Proventil IH Q4HRT PRN Shortness Of Breath Albuterol/Ipratropium 1 ampul 11/30/18 08:00 09/02/19 16:33 Duoneb *Not For Prn Use* IH 1 ampul QIDRT KEN Administration Lipase/Protease/Amylase 1 each 12/03/18 10:42 Pancreaze 10,500 Unit FEEDTUBE PRN PRN For Clogged Feeding Tube Famotidine 10 mg 11/30/18 10:00 12/03/18 09:40 Pepcid IV 10 mg BID KEN Administration Sodium Chloride 1,000 mls @ 75 mls/hr 11/30/18 07:00 12/03/18 09:15 Nacl 0.45% 1000 Ml IV 12/04/18 11:00 75 mls/hr DIRECT KEN Administration Cefepime HCl 2 gm in 100 mls @ 200 mls/hr 11/30/18 22:00 12/02/18 21:48 Maxipime/Ns 2 Gm/100 Ml IV 200 mls/hr Q24H KEN Administration Protocol Insulin Human Lispro 0 unit 11/30/18 07:00 12/03/18 17:48 Humalog SUB-Q 3 unit Q6HR KEN Administration Protocol Lamivudine 100 mg 12/02/18 10:00 12/03/18 09:14 Epivir PO 100 mg DAILY KEN Administration Metoclopramide HCl 5 mg 11/30/18 00:22 Reglan IV Q6H PRN Nausea And Vomiting Ondansetron HCl 4 mg 11/30/18 00:06 Zofran IV Q8H PRN Nausea And Vomiting Raltegravir 400 mg 11/30/18 16:00 12/03/18 09:14 Isentress PO 400 mg BID KEN Administration Simple Syrup 15 ml 12/03/18 10:42 Simple Syrup FEEDTUBE PRN PRN Hypoglycemia Simple Syrup 30 ml 12/03/18 10:42 Simple Syrup FEEDTUBE PRN PRN Hypoglycemia Sodium Bicarbonate 325 mg 12/03/18 10:42 Sodium Bicarbonate FEEDTUBE PRN PRN For Clogged Feeding Tube Sodium Chloride 10 ml 11/30/18 10:00 12/03/18 10:00 Sodium Chloride Flush Syringe 10 Ml IV 10 ml BID KEN Administration Sodium Chloride 10 ml 11/30/18 00:06 Sodium Chloride Flush Syringe 10 Ml IV PRN PRN LINE FLUSH Zidovudine 300 mg 11/30/18 16:00 12/03/18 09:14 Retrovir PO 300 mg BID KEN Administration
--- NOTE | 2018-12-03 19:31 | Progress Note ---
Assessment and Plan Imp: 1. Acute encephalopathy 2. SIRS 3. Acute respiratory failure, hypoxia 4. CONNIE 5. Volume depletion 6. Hypernatremia 7. HIV 8. Pancytopenia Rec: 1. ABX per ID; f/u cultures; await LP 2. Await MRI brain; consider neurology consult 3. Daily PSV trials; mentation precludes extubation 4. Hypotonic IVFs 5. Labs in AM 6. On ART 7. Hematology consult pending 8. TFs, SCDs, Pepcid 9. Prognosis guarded to poor 10. No family present CCT 31 minutes Subjective Date of service: 12/03/18 Principal diagnosis: sepsis Interval history: No events. Opens eyes. Does not track, follow commands, or move extremities. Off sedation. Active Medications Abacavir Sulfate (Ziagen) 600 mg PO DAILY [facility] Last Admin: 12/03/18 09:13 Dose: 600 mg Documented by: Albuterol (Proventil) 2.5 mg IH Q4HRT PRN PRN Reason: Shortness Of Breath Albuterol/Ipratropium (Duoneb *Not For Prn Use*) 1 ampul IH QIDRT [facility] Last Admin: 12/03/18 16:33 Dose: 1 ampul Documented by: Lipase/Protease/Amylase (Pancredavis Manning 10,500 Unit) 1 each FEEDTUBE PRN PRN PRN Reason: For Clogged Feeding Tube Famotidine (Pepcid) 10 mg IV BID [facility] Last Admin: 12/03/18 09:40 Dose: 10 mg Documented by: Sodium Chloride (Nacl 0.45% 1000 Ml) 1,000 mls @ 75 mls/hr IV DIRECT KEN Stop: 12/04/18 11:00 Last Admin: 12/03/18 09:15 Dose: 75 mls/hr Documented by: Cefepime HCl (Maxipime/Ns 2 Gm/100 Ml) 2 gm in 100 mls @ 200 mls/hr IV Q24H [facility]; Protocol Last Admin: 12/02/18 21:48 Dose: 200 mls/hr Documented by: Insulin Human Lispro (Humalog) 0 unit SUB-Q Q6HR [facility]; Protocol Last Admin: 12/03/18 17:48 Dose: 3 unit Documented by: Lamivudine (Epivir) 100 mg PO DAILY [facility] Last Admin: 12/03/18 09:14 Dose: 100 mg Documented by: Metoclopramide HCl (Reglan) 5 mg IV Q6H PRN PRN Reason: Nausea And Vomiting Ondansetron HCl (Zofran) 4 mg IV Q8H PRN PRN Reason: Nausea And Vomiting Raltegravir (Isentress) 400 mg PO BID [facility] Last Admin: 12/03/18 09:14 Dose: 400 mg Documented by: Simple Syrup (Simple Syrup) 15 ml FEEDTUBE PRN PRN PRN Reason: Hypoglycemia Simple Syrup (Simple Syrup) 30 ml FEEDTUBE PRN PRN PRN Reason: Hypoglycemia Sodium Bicarbonate (Sodium Bicarbonate) 325 mg FEEDTUBE PRN PRN PRN Reason: For Clogged Feeding Tube Sodium Chloride (Sodium Chloride Flush Syringe 10 Ml) 10 ml IV BID [facility] Last Admin: 12/03/18 10:00 Dose: 10 ml Documented by: Sodium Chloride (Sodium Chloride Flush Syringe 10 Ml) 10 ml IV PRN PRN PRN Reason: LINE FLUSH Zidovudine (Retrovir) 300 mg PO BID [facility] Last Admin: 12/03/18 09:14 Dose: 300 mg Documented by: Objective Vital Signs - 12hr 12/03/18 12/03/18 12/03/18 08:00 08:07 08:12 Temperature 97.8 F Pulse Rate 100 H 98 H Pulse Rate [ 101 H Anterior Bilateral Throughout] Pulse Rate [ 96 H Apical] Respiratory 18 Rate Respiratory Rate [Anterior Abdomen] Respiratory 22 Rate [Anterior Bilateral Throughout] Blood Pressure 106/77 106/77 O2 Sat by Pulse 97 98 Oximetry 12/03/18 12/03/18 12/03/18 09:00 10:00 10:08 Temperature Pulse Rate 97 H 100 H 91 H Pulse Rate [ Anterior Bilateral Throughout] Pulse Rate [ Apical] Respiratory 19 16 15 Rate Respiratory 21 Rate [Anterior Abdomen] Respiratory Rate [Anterior Bilateral Throughout] Blood Pressure 109/77 110/77 110/77 O2 Sat by Pulse 96 98 98 Oximetry 12/03/18 12/03/18 12/03/18 10:12 11:00 12:00 Temperature 98.4 F Pulse Rate 91 H 91 H 96 H Pulse Rate [ Anterior Bilateral Throughout] Pulse Rate [ 101 H Apical] Respiratory 20 16 Rate Respiratory Rate [Anterior Abdomen] Respiratory Rate [Anterior Bilateral Throughout] Blood Pressure 110/77 110/75 105/71 O2 Sat by Pulse 98 96 96 Oximetry 12/03/18 12/03/18 12/03/18 12:42 12:44 13:00 Temperature Pulse Rate 101 H 98 H Pulse Rate [ 92 H Anterior Bilateral Throughout] Pulse Rate [ Apical] Respiratory 19 Rate Respiratory Rate [Anterior Abdomen] Respiratory 16 Rate [Anterior Bilateral Throughout] Blood Pressure 105/71 110/74 O2 Sat by Pulse 99 Oximetry 12/03/18 12/03/18 12/03/18 14:00 15:00 16:00 Temperature 98.3 F Pulse Rate 98 H 97 H 99 H Pulse Rate [ Anterior Bilateral Throughout] Pulse Rate [ 106 H Apical] Respiratory 15 16 17 Rate Respiratory Rate [Anterior Abdomen] Respiratory Rate [Anterior Bilateral Throughout] Blood Pressure 111/76 105/76 107/83 O2 Sat by Pulse 98 98 97 Oximetry 12/03/18 12/03/18 12/03/18 16:32 16:33 17:00 Temperature Pulse Rate 99 H 99 H Pulse Rate [ 91 H Anterior Bilateral Throughout] Pulse Rate [ Apical] Respiratory 16 Rate Respiratory Rate [Anterior Abdomen] Respiratory 16 Rate [Anterior Bilateral Throughout] Blood Pressure 107/83 117/81 O2 Sat by Pulse 99 Oximetry 12/03/18 18:00 Temperature Pulse Rate 101 H Pulse Rate [ Anterior Bilateral Throughout] Pulse Rate [ Apical] Respiratory 14 Rate Respiratory Rate [Anterior Abdomen] Respiratory Rate [Anterior Bilateral Throughout] Blood Pressure 111/74 O2 Sat by Pulse 86 Oximetry Constitutional: comatose, other (critically ill on vent) Eyes: non-icteric ENT: oropharynx moist, other (intubated) Effort: normal Ascultation: Bilateral: clear Cardiovascular: regular rate and rhythm (no mrg) Gastrointestinal: normoactive bowel sounds, soft, non-tender, non-distended Extremities: no cyanosis, no edema, pink and warm Neurologic: other (eyes open, not following commands) Psychiatric: other (unable to assess) CBC and BMP: 12/03/18 04:06 12/03/18 04:06 ABG, PT/INR, D-dimer: ABG POC ABG pH 7.403 (7.35-7.45) 12/03/18 04:36 ABG pH 7.442 pH Units (7.350-7.450) 12/02/18 03:40 ABG pCO2 24.6 mm Hg 12/02/18 03:40 POC ABG pO2 87 (80-105) 12/03/18 04:36 ABG pO2 78.0 mm Hg (80.0-90.0) L 12/02/18 03:40 POC ABG HCO3 17.3 (22-26 mml/L) 12/03/18 04:36 POC ABG Total CO2 18 (23-27mmol/L) 12/03/18 04:36 POC ABG O2 Sat 97 12/03/18 04:36 ABG O2 Saturation 96.7 % (95.0-99.0) 12/02/18 03:40 Abnormal lab findings: Abnormal Labs 11/29/18 11/29/18 11/29/18 13:07 13:39 13:39 WBC 3.2 L RBC 2.76 L Hgb 10.4 L Hct 32.1 L MCV 116 H MCH 38 H RDW 17.5 H Plt Count 48 L Lymph % (Auto) 5.4 L Lymph # 0.2 L Seg Neutrophils % 89.5 H POC ABG pH POC ABG pO2 ABG pO2 ABG HCO3 ABG O2 Saturation ABG Base Excess ABG Hemoglobin VBG pH Oxyhemoglobin Sodium 153 H Potassium Chloride 113.3 H Carbon Dioxide 21 L BUN 55 H Creatinine 2.4 H Glucose 260 H POC Glucose 289 H Calcium AST 68 H Alkaline Phosphatase 239 H Total Creatine Kinase 243 H Troponin T 0.054 H Total Protein 5.8 L Albumin 3.0 L LDL Cholesterol Direct 30 L HDL Cholesterol 63 H Urine Creatinine Salicylates Acetaminophen 11/29/18 11/29/18 11/29/18 13:39 13:39 13:39 WBC RBC Hgb Hct MCV MCH RDW Plt Count Lymph % (Auto) Lymph # Seg Neutrophils % POC ABG pH POC ABG pO2 ABG pO2 ABG HCO3 ABG O2 Saturation ABG Base Excess ABG Hemoglobin VBG pH 7.186 L* Oxyhemoglobin Sodium Potassium Chloride Carbon Dioxide BUN Creatinine Glucose POC Glucose Calcium AST Alkaline Phosphatase Total Creatine Kinase Troponin T Total Protein Albumin LDL Cholesterol Direct HDL Cholesterol Urine Creatinine Salicylates < 0.3 L Acetaminophen < 5.0 L 11/29/18 11/29/18 11/30/18 14:24 21:17 05:50 WBC RBC Hgb Hct MCV MCH RDW Plt Count Lymph % (Auto) Lymph # Seg Neutrophils % POC ABG pH 7.319 L POC ABG pO2 126 H ABG pO2 203.3 H ABG HCO3 18.5 L ABG O2 Saturation 99.3 H ABG Base Excess -6.2 L ABG Hemoglobin 10.9 L VBG pH Oxyhemoglobin Sodium Potassium Chloride Carbon Dioxide BUN Creatinine Glucose POC Glucose 242 H Calcium AST Alkaline Phosphatase Total Creatine Kinase Troponin T Total Protein Albumin LDL Cholesterol Direct HDL Cholesterol Urine Creatinine Salicylates Acetaminophen 11/30/18 11/30/18 11/30/18 08:52 10:31 10:58 WBC RBC 3.05 L Hgb 11.5 L Hct 35.3 L MCV 116 H MCH 38 H RDW 17.2 H Plt Count 43 L Lymph % (Auto) Lymph # Seg Neutrophils % POC ABG pH POC ABG pO2 ABG pO2 ABG HCO3 ABG O2 Saturation ABG Base Excess ABG Hemoglobin VBG pH Oxyhemoglobin Sodium 153 H Potassium Chloride 117.2 H Carbon Dioxide 18 L BUN 60 H Creatinine 2.8 H Glucose 216 H POC Glucose 234 H Calcium 8.2 L AST Alkaline Phosphatase Total Creatine Kinase Troponin T Total Protein Albumin LDL Cholesterol Direct HDL Cholesterol Urine Creatinine Salicylates Acetaminophen 11/30/18 11/30/18 11/30/18 12:40 14:20 17:35 WBC RBC Hgb Hct MCV MCH RDW Plt Count Lymph % (Auto) Lymph # Seg Neutrophils % POC ABG pH POC ABG pO2 ABG pO2 ABG HCO3 ABG O2 Saturation ABG Base Excess ABG Hemoglobin VBG pH Oxyhemoglobin Sodium Potassium Chloride Carbon Dioxide BUN Creatinine Glucose POC Glucose 235 H 182 H Calcium AST Alkaline Phosphatase Total Creatine Kinase Troponin T Total Protein Albumin LDL Cholesterol Direct HDL Cholesterol Urine Creatinine 173.8 H Salicylates Acetaminophen 11/30/18 12/01/18 12/01/18 23:53 04:08 04:08 WBC RBC 3.11 L Hgb 11.7 L Hct 35.3 L MCV 113 H MCH 38 H RDW 16.9 H Plt Count 43 L Lymph % (Auto) Lymph # Seg Neutrophils % POC ABG pH POC ABG pO2 ABG pO2 ABG HCO3 ABG O2 Saturation ABG Base Excess ABG Hemoglobin VBG pH Oxyhemoglobin Sodium 150 H Potassium Chloride 114.6 H Carbon Dioxide 16 L BUN 67 H Creatinine 2.9 H Glucose 193 H POC Glucose 149 H Calcium 8.2 L AST Alkaline Phosphatase Total Creatine Kinase Troponin T Total Protein Albumin LDL Cholesterol Direct HDL Cholesterol Urine Creatinine Salicylates Acetaminophen 12/01/18 12/01/18 12/01/18 04:55 05:11 13:33 WBC RBC Hgb Hct MCV MCH RDW Plt Count Lymph % (Auto) Lymph # Seg Neutrophils % POC ABG pH POC ABG pO2 ABG pO2 91.9 H ABG HCO3 17.7 L ABG O2 Saturation ABG Base Excess -6.1 L ABG Hemoglobin 11.5 L VBG pH Oxyhemoglobin Sodium Potassium Chloride Carbon Dioxide BUN Creatinine Glucose POC Glucose 236 H 255 H Calcium AST Alkaline Phosphatase Total Creatine Kinase Troponin T Total Protein Albumin LDL Cholesterol Direct HDL Cholesterol Urine Creatinine Salicylates Acetaminophen 12/01/18 12/02/18 12/02/18 18:20 00:17 03:40 WBC RBC Hgb Hct MCV MCH RDW Plt Count Lymph % (Auto) Lymph # Seg Neutrophils % POC ABG pH POC ABG pO2 ABG pO2 78.0 L ABG HCO3 16.4 L ABG O2 Saturation ABG Base Excess -6.2 L ABG Hemoglobin 11.4 L VBG pH Oxyhemoglobin 94.5 L Sodium Potassium Chloride Carbon Dioxide BUN Creatinine Glucose POC Glucose 177 H 192 H Calcium AST Alkaline Phosphatase Total Creatine Kinase Troponin T Total Protein Albumin LDL Cholesterol Direct HDL Cholesterol Urine Creatinine Salicylates Acetaminophen 12/02/18 12/02/18 12/02/18 05:11 05:26 07:50 WBC 4.1 L RBC 3.01 L Hgb 11.4 L Hct 34.1 L MCV 113 H MCH 38 H RDW 17.3 H Plt Count 40 L Lymph % (Auto) Lymph # Seg Neutrophils % POC ABG pH POC ABG pO2 ABG pO2 ABG HCO3 ABG O2 Saturation ABG Base Excess ABG Hemoglobin VBG pH Oxyhemoglobin Sodium Potassium 5.6 H D Chloride 113.0 H Carbon Dioxide 16 L BUN 73 H Creatinine 2.8 H Glucose 202 H POC Glucose 179 H Calcium AST Alkaline Phosphatase Total Creatine Kinase Troponin T Total Protein Albumin LDL Cholesterol Direct HDL Cholesterol Urine Creatinine Salicylates Acetaminophen 12/02/18 12/02/18 12/02/18 11:57 18:40 18:43 WBC RBC Hgb Hct MCV MCH RDW Plt Count Lymph % (Auto) Lymph # Seg Neutrophils % POC ABG pH POC ABG pO2 ABG pO2 ABG HCO3 ABG O2 Saturation ABG Base Excess ABG Hemoglobin VBG pH Oxyhemoglobin Sodium Potassium Chloride Carbon Dioxide BUN Creatinine Glucose POC Glucose 140 H 286 H 261 H Calcium AST Alkaline Phosphatase Total Creatine Kinase Troponin T Total Protein Albumin LDL Cholesterol Direct HDL Cholesterol Urine Creatinine Salicylates Acetaminophen 12/02/18 12/03/18 12/03/18 23:55 04:06 04:06 WBC 4.4 L RBC 2.96 L Hgb 11.3 L Hct 33.1 L MCV 112 H MCH 38 H RDW 16.7 H Plt Count 38 L Lymph % (Auto) Lymph # Seg Neutrophils % POC ABG pH POC ABG pO2 ABG pO2 ABG HCO3 ABG O2 Saturation ABG Base Excess ABG Hemoglobin VBG pH Oxyhemoglobin Sodium 146 H Potassium Chloride 112.5 H Carbon Dioxide 18 L BUN 71 H Creatinine 2.5 H Glucose 258 H POC Glucose 303 H Calcium 8.3 L AST Alkaline Phosphatase Total Creatine Kinase Troponin T Total Protein Albumin LDL Cholesterol Direct HDL Cholesterol Urine Creatinine Salicylates Acetaminophen 12/03/18 12/03/18 12/03/18 05:17 11:25 17:46 WBC RBC Hgb Hct MCV MCH RDW Plt Count Lymph % (Auto) Lymph # Seg Neutrophils % POC ABG pH POC ABG pO2 ABG pO2 ABG HCO3 ABG O2 Saturation ABG Base Excess ABG Hemoglobin VBG pH Oxyhemoglobin Sodium Potassium Chloride Carbon Dioxide BUN Creatinine Glucose POC Glucose 328 H 288 H 202 H Calcium AST Alkaline Phosphatase Total Creatine Kinase Troponin T Total Protein Albumin LDL Cholesterol Direct HDL Cholesterol Urine Creatinine Salicylates Acetaminophen Chest x-ray: report reviewed, image reviewed
[2018-12-03] MEDS: MAXIPIME/NS 2 GM/100 ML 2 GM/100 ML BAG IV SCH (21:33)
--- NOTE | 2018-12-03 23:37 | Consultation ---
REFERRED BY: Dr. Cash. REASON FOR CONSULTATION: Thrombocytopenia. HISTORY OF PRESENT ILLNESS: I saw the patient, a 73-year-old male in the ICU. The patient has history of COPD, diabetes, hypertension, CVA, hyperlipidemia, dementia, CKD, HIV immunosuppression came to the hospital as he was found unresponsive with family members. At this time, the patient is not responding. He is intubated. Platelets were low and I have been asked to evaluate the patient. The patient has been seen by multiple consultants, which includes Nephrology, Pulmonary and ID. REVIEW OF SYSTEMS: Not reliable because of the patient's mentation. Most of the information comes from medical records. PAST MEDICAL HISTORY: As above. PHYSICAL EXAMINATION: GENERAL: Intubated. VITAL SIGNS: On examination, temperature 98.8, pulse 96, respirations 20, BP 107/73. HEENT: No pallor. NECK: No neck lymph nodes. HEART: S1, S2. LUNGS: Decreased air entry. ABDOMEN: Soft. EXTREMITIES: Bilateral edema present. NEUROLOGIC: Intubated, not able to evaluate neurology. ALLERGIES: None. MEDICATIONS: Reviewed. LABORATORY: White cell 4, hemoglobin 11, MCV 113, platelet 40. Potassium 5.6, creatinine 2.8, calcium 8.4. RADIOLOGY: Renal ultrasound. Head CT was done. ASSESSMENT AND PLAN: 1. Thrombocytopenia. The patient has multiple issues, which include HIV/immunosuppression medications. 2. We will follow the trend. At this time, there is no active bleeding. 3. Unresponsive. 4. Leukopenia. 5. Macrocytosis. This may be medication related. 6. History of diabetes. 7. History of hypertension. 8. History of cerebrovascular accident. 9. History of dementia. 10. Chronic obstructive pulmonary disease. 11. Renal impairment. 12. Metabolic encephalopathy. 13. Intubation. Respiratory support. 14. I will follow the patient during inpatient stay. We will do deficiency investigations and follow the patient. B12 is normal. JOB# [id number] KARIS/ANGI HERNANDEZ
[2018-12-04] MEDS: HumaLOG SUB-Q SCH ×4 (07:03→18:20)
--- NOTE | 2018-12-04 07:04 | Hem/Onc Progress Note ---
Assessment and Plan 1. Thrombocytopenia. The patient has multiple issues, which include HIV/immunosuppression medications. 2. At this time, there is no active bleeding. 3. Unresponsive. 4. Leukopenia. 5. Macrocytosis. This may be medication related. 6. History of diabetes. 7. History of hypertension. 8. History of cerebrovascular accident. 9. History of dementia. 10. Chronic obstructive pulmonary disease. 11. Renal impairment. 12. Metabolic encephalopathy. 13. Intubation. Respiratory support. 14. I will follow the patient during inpatient stay. We will do deficiency investigations and follow the patient. B12 is normal. ID following for HIV - Patient Problems (1) Thrombocytopenia Current Visit: Yes Status: Acute Subjective Date of service: 12/04/18 Principal diagnosis: low plt Interval history: opens eyes Objective - Exam Narrative Exam: Pain - not verbal General appearance - not verbal Performance status complete dependence Eyes - no icterus ENT - no bleeding LNs cervical - not palpable Neck - no LN Respiratory Normal Breath sounds - CTA CVS S1 S2 + Extremities no edema General GI Soft Rectal deferred male - deferred Skin warm Musculoskeletal not moving Neurologically non verbal - Constitutional Vitals: Last Vital Signs Temp 97.4 F L 12/04/18 03:44 Pulse 106 H 12/04/18 06:00 Resp 18 12/04/18 06:00 BP 117/83 12/04/18 06:00 Pulse Ox 99 12/04/18 06:00 - Labs Lab Results: Laboratory Results - last 24 hr 12/02/18 12/03/18 12/03/18 17:04 11:25 17:46 POC ABG pH POC ABG pO2 POC ABG HCO3 POC ABG Total CO2 POC ABG O2 Sat POC ABG Base Excess FiO2 POC Glucose 288 H 202 H RPR Nonreactive 12/04/18 12/04/18 12/04/18 01:15 03:48 05:47 POC ABG pH 7.437 POC ABG pO2 82 POC ABG HCO3 19.3 POC ABG Total CO2 20 POC ABG O2 Sat 97 POC ABG Base Excess -5 FiO2 25 POC Glucose 282 H 265 H RPR Medications & Allergies - Medications Allergies/Adverse Reactions: Allergies No Known Allergies Allergy (Unverified 03/29/16 00:43) Home Medications: Home Medications Medication Instructions Recorded Confirmed Last Taken Type Aspirin [Aspirin BABY CHEW TAB] 81 mg PO QDAY #30 tab.chew 11/15/17 11/29/18 Unknown Rx Amlodipine Besylate 10 mg PO QDAY 05/21/18 11/29/18 Unknown History Carvedilol 6.25 mg PO BID 05/21/18 11/29/18 Unknown History Isentress 400 mg PO Q12HR 05/21/18 11/29/18 Unknown History Rosuvastatin Calcium 10 mg PO DAILY 05/21/18 11/29/18 Unknown History Memantine [Namenda] 5 mg PO QDAY #30 tablet 11/01/18 11/29/18 Unknown Rx Albuterol Sulfate [Albuterol 0.63% 0.63 mg IH TID PRN 30 Days ml 11/07/18 11/29/18 Unknown Rx NEBS] AtorvaSTATin [Lipitor] 20 mg PO QDAY #30 tablet 11/07/18 11/29/18 Unknown Rx Famotidine [Pepcid] 10 mg PO BID #60 tablet 11/07/18 11/29/18 Unknown Rx Ipratropium/Albuterol Sulfate 1 ampul IH Q6HR 30 Days ampul.neb 11/07/18 0 11/29/18 Unknown Rx [DUONEB *Not for PRN Use*] Tamsulosin [Flomax] 0.4 mg PO QHS #30 capsule 11/07/18 11/29/18 Unknown Rx Zidovudine 300 mg PO DAILY 11/09/18 11/29/18 Unknown History Insulin Regular, Human [HumuLIN R] 0 unit SQ AC #1 vial 11/12/18 11/29/18 Unknown Rx Active Medications: Generic Name Dose Route Start Last Admin Trade Name Freq PRN Reason Stop Dose Admin Abacavir Sulfate 600 mg 11/30/18 16:00 12/03/18 09:13 Ziagen PO 600 mg DAILY KEN Administration Albuterol 2.5 mg 11/30/18 00:17 Proventil IH Q4HRT PRN Shortness Of Breath Albuterol/Ipratropium 1 ampul 11/30/18 08:00 12/03/18 19:53 Duoneb *Not For Prn Use* IH 1 ampul QIDRT KEN Administration Lipase/Protease/Amylase 1 each 12/03/18 10:42 Pancredavis Manning 10,500 Unit FEEDTUBE PRN PRN For Clogged Feeding Tube Famotidine 10 mg 11/30/18 10:00 12/03/18 21:34 Pepcid IV 10 mg BID KEN Administration Sodium Chloride 1,000 mls @ 75 mls/hr 11/30/18 07:00 12/03/18 21:36 Nacl 0.45% 1000 Ml IV 12/04/18 11:00 75 mls/hr DIRECT KEN Administration Cefepime HCl 2 gm in 100 mls @ 200 mls/hr 11/30/18 22:00 12/03/18 21:33 Maxipime/Ns 2 Gm/100 Ml IV 200 mls/hr Q24H KEN Administration Protocol Insulin Human Lispro 0 unit 11/30/18 07:00 12/04/18 07:03 Humalog SUB-Q 3 unit Q6HR KEN Administration Protocol Lamivudine 100 mg 12/02/18 10:00 12/03/18 09:14 Epivir PO 100 mg DAILY KEN Administration Metoclopramide HCl 5 mg 11/30/18 00:22 Reglan IV Q6H PRN Nausea And Vomiting Ondansetron HCl 4 mg 11/30/18 00:06 Zofran IV Q8H PRN Nausea And Vomiting Raltegravir 400 mg 11/30/18 16:00 12/03/18 21:35 Isentress PO 400 mg BID KEN Administration Simple Syrup 15 ml 12/03/18 10:42 Simple Syrup FEEDTUBE PRN PRN Hypoglycemia Simple Syrup 30 ml 12/03/18 10:42 Simple Syrup FEEDTUBE PRN PRN Hypoglycemia Sodium Bicarbonate 325 mg 12/03/18 10:42 Sodium Bicarbonate FEEDTUBE PRN PRN For Clogged Feeding Tube Sodium Chloride 10 ml 11/30/18 10:00 12/03/18 21:34 Sodium Chloride Flush Syringe 10 Ml IV 10 ml BID KEN Administration Sodium Chloride 10 ml 11/30/18 00:06 Sodium Chloride Flush Syringe 10 Ml IV PRN PRN LINE FLUSH Zidovudine 300 mg 11/30/18 16:00 12/03/18 21:36 Retrovir PO 300 mg BID KEN Administration
[2018-12-04] MEDS: DUONEB *Not for PRN Use IH SCH ×4 (08:29→20:49)
[2018-12-04 08:32] LABS: Basophils % (Auto) 0.1 % (0.0-1.8); Eosinophils % (Auto) 0.3 % (0.0-4.3); Hematocrit 35.8 % (35.5-45.6); Hemoglobin 11.7 gm/dl (11.8-15.2); Lymphocytes # (Auto) 0.3 K/mm3 (1.2-5.4); Lymphocytes % (Auto) 6.9 % (13.4-35.0); Mean Corpuscular HGB Conc 33 % (32-34); Monocytes # (Auto) 0.3 K/mm3 (0.0-0.8); Red Blood Count 3.11 M/mm3 (3.65-5.03); Red Cell Distribution Width 17.6 % (13.2-15.2)
[2018-12-04 08:35] LABS: Mean Corpuscular Volume 115 fl (84-94); Platelet Count 35 K/mm3 (140-440)
[2018-12-04 08:45] LABS: Partial Thromboplastin Time 36.4 Sec. (24.2-36.6)
[2018-12-04 08:52] LABS: INR 1.42 (0.87-1.13)
[2018-12-04 08:53] LABS: Albumin 2.1 g/dL (3.9-5); Calcium 8.3 mg/dL (8.4-10.2)
[2018-12-04] MEDS ORDERED: SIMPLE SYRUP FEEDTUBE PRN ×4 (09:02→09:34)
[2018-12-04] MEDS ORDERED: PANCREAZE DR 10,500 UNIT FEEDTUBE PRN ×2 (09:02→09:34)
[2018-12-04] MEDS ORDERED: SODIUM BICARBONATE FEEDTUBE PRN ×2 (09:02→09:34)
[2018-12-04] MEDS: PEPCID PO SCH ×2 (10:12→21:59)
[2018-12-04] MEDS: ZIAGEN PO SCH (10:12)
[2018-12-04] MEDS: RETROVIR PO SCH ×2 (10:13→22:11)
[2018-12-04] MEDS: EPIVIR PO SCH (10:13)
[2018-12-04] MEDS: ISENTRESS PO SCH ×2 (10:13→22:00)
[2018-12-04] MEDS: SODIUM CHLORIDE FLUSH SYRINGE 10 ML IV SCH ×2 (10:14→22:02)
[2018-12-04] MEDS: NACL 0.45% 1000 ML 1,000 ML IV SCH (10:36)
--- NOTE | 2018-12-04 11:40 | Progress Note ---
Assessment and Plan 1. Acute kidney injury: Vasomotor CONNIE superimposed on CKD in the setting of hypotension. Renal US negative for hydro. Continue IV fluids. Renal function is improving. Monitor renal function. Renal prognosis is guarded. Avoid nephrotoxic agents. Meds dosage based on GFR. 2. FEN: Hyperkalemia, improved with kayexalate. Hypernatremia, continue free water flushes. Monitor lytes. 3. Acute hypoxic respiratory failure: Intubated on vent. 4. Acute Metabolic Encephalopathy. 5. Elevated troponin. 6. Macrocytic anemia: POA. Low Folate, start on Folic acid. 7. Type 2 DM. Subjective Date of service: 12/04/18 Principal diagnosis: low plt Interval history: Patient was seen and examined at the bedside. Objective - Vital Signs Vital signs: Vital Signs - 12hr 12/03/18 12/04/18 12/04/18 23:40 00:00 01:00 Temperature Pulse Rate 104 H 105 H 104 H Pulse Rate [ Anterior Bilateral Throughout] Pulse Rate [ 96 H Apical] Respiratory 4 L 18 17 Rate Respiratory Rate [Anterior Bilateral Throughout] Blood Pressure 121/80 121/83 120/84 O2 Sat by Pulse 98 99 99 Oximetry 12/04/18 12/04/18 12/04/18 02:00 03:00 03:39 Temperature Pulse Rate 105 H 106 H 105 H Pulse Rate [ Anterior Bilateral Throughout] Pulse Rate [ Apical] Respiratory 14 16 Rate Respiratory Rate [Anterior Bilateral Throughout] Blood Pressure 117/82 116/86 116/86 O2 Sat by Pulse 99 99 Oximetry 12/04/18 12/04/18 12/04/18 03:44 04:00 05:00 Temperature 97.4 F L Pulse Rate 108 H 107 H Pulse Rate [ Anterior Bilateral Throughout] Pulse Rate [ 102 H Apical] Respiratory 18 16 Rate Respiratory Rate [Anterior Bilateral Throughout] Blood Pressure 113/81 114/85 O2 Sat by Pulse 98 99 Oximetry 12/04/18 12/04/18 12/04/18 06:00 07:00 08:00 Temperature 96.1 F L Pulse Rate 106 H 107 H 107 H Pulse Rate [ Anterior Bilateral Throughout] Pulse Rate [ Apical] Respiratory 18 16 20 Rate Respiratory Rate [Anterior Bilateral Throughout] Blood Pressure 117/83 119/84 115/84 O2 Sat by Pulse 99 100 98 Oximetry 12/04/18 12/04/18 12/04/18 08:25 08:29 09:00 Temperature Pulse Rate 106 H 108 H Pulse Rate [ 101 H Anterior Bilateral Throughout] Pulse Rate [ Apical] Respiratory 17 Rate Respiratory 25 H Rate [Anterior Bilateral Throughout] Blood Pressure 115/84 121/85 O2 Sat by Pulse 98 Oximetry 12/04/18 12/04/18 12/04/18 10:00 11:00 11:17 Temperature Pulse Rate 88 111 H 113 H Pulse Rate [ Anterior Bilateral Throughout] Pulse Rate [ Apical] Respiratory 19 18 20 Rate Respiratory Rate [Anterior Bilateral Throughout] Blood Pressure 114/81 117/79 117/79 O2 Sat by Pulse 98 99 99 Oximetry - General Appearance General appearance: well-developed, appears stated age, intubated, other (on vent) EENT: ATNC, PERRL Neck: supple Respiratory: Present: Clear to Ascultation Cardiology: regular, S1S2, no murmurs Gastrointestinal: normoactive bowel sounds, no tenderness, no distended Integumentary: other (B/L LE dressing noted) Neurologic: other (opens eyes, not following any command) Musculoskeletal: other (Trace LE edema noted) - Lab 12/04/18 08:01 12/04/18 08:01 Most recent lab results ABG pH 7.442 pH Units (7.350-7.450) 12/02/18 03:40 ABG pCO2 24.6 mm Hg 12/02/18 03:40 ABG pO2 78.0 mm Hg (80.0-90.0) L 12/02/18 03:40 ABG HCO3 16.4 mmol/L (20.0-26.0) L 12/02/18 03:40 ABG O2 Saturation 96.7 % (95.0-99.0) 12/02/18 03:40 Calcium 8.3 mg/dL (8.4-10.2) L 12/04/18 08:01 Phosphorus 2.80 mg/dL (2.5-4.5) 12/04/18 08:01 Magnesium 2.10 mg/dL (1.7-2.3) 12/04/18 08:01 173.8 mg/dL (0.1-20.0) H 11/30/18 14:20 18 mmol/L 11/30/18 14:20 Medications & Allergies - Medications Allergies/Adverse Reactions: Allergies No Known Allergies Allergy (Unverified 03/29/16 00:43) Home Medications: Home Medications Medication Instructions Recorded Confirmed Last Taken Type Aspirin [Aspirin BABY CHEW TAB] 81 mg PO QDAY #30 tab.chew 11/15/17 11/29/18 Unknown Rx Amlodipine Besylate 10 mg PO QDAY 05/21/18 11/29/18 Unknown History Carvedilol 6.25 mg PO BID 05/21/18 11/29/18 Unknown History Isentress 400 mg PO Q12HR 05/21/18 11/29/18 Unknown History Rosuvastatin Calcium 10 mg PO DAILY 05/21/18 11/29/18 Unknown History Memantine [Namenda] 5 mg PO QDAY #30 tablet 11/01/18 11/29/18 Unknown Rx Albuterol Sulfate [Albuterol 0.63% 0.63 mg IH TID PRN 30 Days ml 11/07/18 08/12/20 Unknown Rx NEBS] AtorvaSTATin [Lipitor] 20 mg PO QDAY #30 tablet 11/07/18 11/29/18 Unknown Rx Famotidine [Pepcid] 10 mg PO BID #60 tablet 11/07/18 11/29/18 Unknown Rx Ipratropium/Albuterol Sulfate 1 ampul IH Q6HR 30 Days ampul.neb 11/07/18 11/29/18 Unknown Rx [DUONEB *Not for PRN Use*] Tamsulosin [Flomax] 0.4 mg PO QHS #30 capsule 11/07/18 11/29/18 Unknown Rx Zidovudine 300 mg PO DAILY 11/09/18 11/29/18 Unknown History Insulin Regular, Human [HumuLIN R] 0 unit SQ AC #1 vial 11/12/18 11/29/18 Unknown Rx Active Medications: Generic Name Dose Route Start Last Admin Trade Name Freq PRN Reason Stop Dose Admin Abacavir Sulfate 600 mg 11/30/18 16:00 12/04/18 10:12 Ziagen PO 600 mg DAILY KEN Administration Albuterol 2.5 mg 11/30/18 00:17 Proventil IH Q4HRT PRN Shortness Of Breath Albuterol/Ipratropium 1 ampul 11/30/18 08:00 12/04/18 08:29 Duoneb *Not For Prn Use* IH 1 ampul QIDRT KEN Administration Lipase/Protease/Amylase 1 each 12/03/18 10:42 Pancreaze 10,500 Unit FEEDTUBE PRN PRN For Clogged Feeding Tube Famotidine 10 mg 12/04/18 11:00 12/04/18 10:12 Pepcid PO 10 mg BID KEN Administration Cefepime HCl 2 gm in 100 mls @ 200 mls/hr 11/30/18 22:00 12/03/18 21:33 Maxipime/Ns 2 Gm/100 Ml IV 200 mls/hr Q24H KEN Administration Protocol Insulin Human Lispro 0 unit 11/30/18 07:00 12/04/18 07:03 Humalog SUB-Q 3 unit Q6HR KEN Administration Protocol Lamivudine 100 mg 12/02/18 10:00 12/04/18 10:13 Epivir PO 100 mg DAILY KEN Administration Metoclopramide HCl 5 mg 11/30/18 00:22 Reglan IV Q6H PRN Nausea And Vomiting Ondansetron HCl 4 mg 11/30/18 00:06 Zofran IV Q8H PRN Nausea And Vomiting Raltegravir 400 mg 11/30/18 16:00 12/04/18 10:13 Isentress PO 400 mg BID KEN Administration Simple Syrup 15 ml 12/03/18 10:42 Simple Syrup FEEDTUBE PRN PRN Hypoglycemia Simple Syrup 30 ml 12/03/18 10:42 Simple Syrup FEEDTUBE PRN PRN Hypoglycemia Sodium Bicarbonate 325 mg 12/03/18 10:42 Sodium Bicarbonate FEEDTUBE PRN PRN For Clogged Feeding Tube Sodium Chloride 10 ml 11/30/18 10:00 12/04/18 10:14 Sodium Chloride Flush Syringe 10 Ml IV 10 ml BID KEN Administration Sodium Chloride 10 ml 11/30/18 00:06 Sodium Chloride Flush Syringe 10 Ml IV PRN PRN LINE FLUSH Zidovudine 300 mg 11/30/18 16:00 12/04/18 10:13 Retrovir PO 300 mg BID KEN Administration
[2018-12-04] MEDS: PEPCID IV SCH (11:42)
[2018-12-04] MEDS: FOLVITE PO SCH (12:26)
--- NOTE | 2018-12-04 12:29 | Progress Note ---
Assessment and Plan Altered mental status Hypothermia Hx of CVA Non-specific troponin Cardiomyopathy, EF 15-20% Moderate to severe MR and TR Renal failure HIV Plan: Supportive cardiac management. Subjective Date of service: 12/04/18 Principal diagnosis: low plt Interval history: No interval changes. Objective Vital Signs Temp Pulse Pulse Pulse Resp Resp Resp 12/04/18 11:17 113 H 20 12/04/18 11:00 111 H 18 12/04/18 10:00 88 19 12/04/18 09:00 108 H 17 12/04/18 08:29 101 H 25 H 12/04/18 08:25 106 H 12/04/18 08:00 96.1 F L 107 H 20 12/04/18 07:00 107 H 16 12/04/18 06:00 106 H 18 12/04/18 05:00 107 H 16 12/04/18 04:00 108 H 102 H 18 12/04/18 03:44 97.4 F L 12/04/18 03:39 105 H 12/04/18 03:00 106 H 12/04/18 02:00 105 H 14 12/04/18 01:00 104 H 17 12/04/18 00:00 105 H 96 H 18 12/03/18 23:40 104 H 4 L 12/03/18 23:17 98.4 F 12/03/18 23:00 100 H 16 12/03/18 22:38 105 H 16 12/03/18 22:00 103 H 17 21 12/03/18 21:00 100 H 16 12/03/18 20:00 97.5 F L 101 H 99 H 24 12/03/18 19:57 99 H 20 12/03/18 19:54 101 H 3 L 12/03/18 19:00 105 H 17 12/03/18 18:00 101 H 14 12/03/18 17:00 99 H 16 12/03/18 16:33 91 H 16 12/03/18 16:32 99 H 12/03/18 16:00 98.3 F 99 H 106 H 17 12/03/18 15:00 97 H 16 12/03/18 14:00 98 H 15 12/03/18 13:00 98 H 19 12/03/18 12:44 92 H 16 12/03/18 12:42 101 H BP Pulse Ox 12/04/18 11:17 117/79 99 12/04/18 11:00 117/79 99 12/04/18 10:00 114/81 98 12/04/18 09:00 121/85 12/04/18 08:29 12/04/18 08:25 115/84 98 12/04/18 08:00 115/84 98 12/04/18 07:00 119/84 100 12/04/18 06:00 117/83 99 12/04/18 05:00 114/85 99 12/04/18 04:00 113/81 98 12/04/18 03:44 12/04/18 03:39 116/86 99 12/04/18 03:00 116/86 99 12/04/18 02:00 117/82 12/04/18 01:00 120/84 99 12/04/18 00:00 121/83 99 12/03/18 23:40 121/80 98 12/03/18 23:17 12/03/18 23:00 121/80 99 12/03/18 22:38 118/80 98 12/03/18 22:00 118/80 98 12/03/18 21:00 115/78 98 12/03/18 20:00 112/70 99 12/03/18 19:57 12/03/18 19:54 111/74 98 12/03/18 19:00 111/80 98 12/03/18 18:00 111/74 86 12/03/18 17:00 117/81 12/03/18 16:33 12/03/18 16:32 107/83 99 12/03/18 16:00 107/83 97 12/03/18 15:00 105/76 98 12/03/18 14:00 111/76 98 12/03/18 13:00 110/74 12/03/18 12:44 12/03/18 12:42 105/71 99 - Physical Examination General: Other (unresponsive, on the vent) Cardiac: Positive: Reg Rate and Rhythm Neuro: Positive: Other (unresponsive, on the vent) Extremities: Absent: edema - Labs and Meds Cardiac Enzymes 12/04/18 Range/Units 08:01 AST 24 (5-40) units/L Coagulation 12/04/18 Range/Units 08:01 PT 17.0 H (12.2-14.9) Sec. INR 1.42 H (0.87-1.13) APTT 36.4 (24.2-36.6) Sec. CBC 12/04/18 Range/Units 08:01 WBC 5.0 (4.5-11.0) K/mm3 RBC 3.11 L (3.65-5.03) M/mm3 Hgb 11.7 L (11.8-15.2) gm/dl Hct 35.8 (35.5-45.6) % Plt Count 35 L (140-440) K/mm3 Lymph # 0.3 L (1.2-5.4) K/mm3 [place] # 0.3 (0.0-0.8) K/mm3 Eos # 0.0 (0.0-0.4) K/mm3 Baso # 0.0 (0.0-0.1) K/mm3 Comprehensive Metabolic Panel 12/04/18 Range/Units 08:01 Sodium 145 (137-145) mmol/L Potassium 3.9 (3.6-5.0) mmol/L Chloride 114.6 H (98-107) mmol/L Carbon Dioxide 20 L (22-30) mmol/L BUN 62 H (9-20) mg/dL Creatinine 2.0 H (0.8-1.5) mg/dL Glucose 266 H (75-100) mg/dL Calcium 8.3 L (8.4-10.2) mg/dL AST 24 (5-40) units/L ALT 32 (7-56) units/L Alkaline Phosphatase 292 H (35-129) units/L Total Protein 5.2 L (6.3-8.2) g/dL Albumin 2.1 L (3.9-5) g/dL
--- NOTE | 2018-12-04 13:59 | Progress Note ---
Assessment and Plan Imp: 1. Acute encephalopathy 2. SIRS 3. Acute respiratory failure, hypoxia 4. CONNIE 5. Volume depletion 6. Hypernatremia 7. HIV 8. Pancytopenia Rec: 1. ABX per ID; f/u cultures; await LP -> needs 1 unit of platelets to get to a goal of > 50K prior to procedure 2. EEG; consider MRI brain and neurology consult 3. Daily PSV trials; mentation precludes extubation 4. Hypotonic IVFs 5. Labs in AM 6. On ART 7. Folic acid supplementation 8. TFs, SCDs, Pepcid 9. Prognosis guarded to poor 10. Plan of care reviewed detail with /son at bedside, they understand/agree; all questions answered to best of my ability CCT 31 minutes Subjective Date of service: 12/04/18 Principal diagnosis: low plt Interval history: No events. Opens eyes. Follows basic commands, squeezing with hands. Unable to give history. Tolerating TFs. Active Medications Abacavir Sulfate (Ziagen) 600 mg PO DAILY [facility] Last Admin: 12/04/18 10:12 Dose: 600 mg Documented by: Albuterol (Proventil) 2.5 mg IH Q4HRT PRN PRN Reason: Shortness Of Breath Albuterol/Ipratropium (Duoneb *Not For Prn Use*) 1 ampul IH QIDRT [facility] Last Admin: 12/04/18 12:31 Dose: 1 ampul Documented by: Lipase/Protease/Amylase (Harleen Manning 10,500 Unit) 1 each FEEDTUBE PRN PRN PRN Reason: For Clogged Feeding Tube Famotidine (Pepcid) 10 mg PO BID [facility] Last Admin: 12/04/18 10:12 Dose: 10 mg Documented by: Folic Acid (Folvite) 1 mg PO QDAY [facility] Last Admin: 12/04/18 12:26 Dose: 1 mg Documented by: Cefepime HCl (Maxipime/Ns 2 Gm/100 Ml) 2 gm in 100 mls @ 200 mls/hr IV Q24H [facility]; Protocol Last Admin: 12/03/18 21:33 Dose: 200 mls/hr Documented by: Insulin Human Lispro (Humalog) 0 unit SUB-Q Q6HR [facility]; Protocol Last Admin: 12/04/18 12:22 Dose: 4 unit Documented by: Lamivudine (Epivir) 100 mg PO DAILY [facility] Last Admin: 12/04/18 10:13 Dose: 100 mg Documented by: Metoclopramide HCl (Reglan) 5 mg IV Q6H PRN PRN Reason: Nausea And Vomiting Ondansetron HCl (Zofran) 4 mg IV Q8H PRN PRN Reason: Nausea And Vomiting Raltegravir (Isentress) 400 mg PO BID [facility] Last Admin: 12/04/18 10:13 Dose: 400 mg Documented by: Simple Syrup (Simple Syrup) 15 ml FEEDTUBE PRN PRN PRN Reason: Hypoglycemia Simple Syrup (Simple Syrup) 30 ml FEEDTUBE PRN PRN PRN Reason: Hypoglycemia Sodium Bicarbonate (Sodium Bicarbonate) 325 mg FEEDTUBE PRN PRN PRN Reason: For Clogged Feeding Tube Sodium Chloride (Sodium Chloride Flush Syringe 10 Ml) 10 ml IV BID [facility] Last Admin: 12/04/18 10:14 Dose: 10 ml Documented by: Sodium Chloride (Sodium Chloride Flush Syringe 10 Ml) 10 ml IV PRN PRN PRN Reason: LINE FLUSH Zidovudine (Retrovir) 300 mg PO BID [facility] Last Admin: 12/04/18 10:13 Dose: 300 mg Documented by: Objective Vital Signs - 12hr 12/04/18 12/04/18 12/04/18 02:00 03:00 03:39 Temperature Pulse Rate 105 H 106 H 105 H Pulse Rate [ Anterior Bilateral Throughout] Pulse Rate [ Apical] Respiratory 14 16 Rate Respiratory Rate [Anterior Bilateral Throughout] Blood Pressure 117/82 116/86 116/86 O2 Sat by Pulse 99 99 Oximetry 12/04/18 12/04/18 12/04/18 03:44 04:00 05:00 Temperature 97.4 F L Pulse Rate 108 H 107 H Pulse Rate [ Anterior Bilateral Throughout] Pulse Rate [ 102 H Apical] Respiratory 18 16 Rate Respiratory Rate [Anterior Bilateral Throughout] Blood Pressure 113/81 114/85 O2 Sat by Pulse 98 99 Oximetry 12/04/18 12/04/18 12/04/18 06:00 07:00 08:00 Temperature 96.1 F L Pulse Rate 106 H 107 H 107 H Pulse Rate [ Anterior Bilateral Throughout] Pulse Rate [ Apical] Respiratory 18 16 20 Rate Respiratory Rate [Anterior Bilateral Throughout] Blood Pressure 117/83 119/84 115/84 O2 Sat by Pulse 99 100 98 Oximetry 12/04/18 12/04/18 12/04/18 08:25 08:29 09:00 Temperature Pulse Rate 106 H 108 H Pulse Rate [ 101 H Anterior Bilateral Throughout] Pulse Rate [ Apical] Respiratory 17 Rate Respiratory 25 H Rate [Anterior Bilateral Throughout] Blood Pressure 115/84 121/85 O2 Sat by Pulse 98 Oximetry 12/04/18 12/04/18 12/04/18 10:00 11:00 11:17 Temperature Pulse Rate 88 111 H 113 H Pulse Rate [ Anterior Bilateral Throughout] Pulse Rate [ Apical] Respiratory 19 18 20 Rate Respiratory Rate [Anterior Bilateral Throughout] Blood Pressure 114/81 117/79 117/79 O2 Sat by Pulse 98 99 99 Oximetry 12/04/18 12/04/18 12/04/18 12:00 12:30 12:32 Temperature 97.8 F Pulse Rate 111 H 95 H Pulse Rate [ 112 H Anterior Bilateral Throughout] Pulse Rate [ Apical] Respiratory 15 21 Rate Respiratory 21 Rate [Anterior Bilateral Throughout] Blood Pressure 111/74 111/74 O2 Sat by Pulse 98 99 Oximetry 12/04/18 13:00 Temperature Pulse Rate 112 H Pulse Rate [ Anterior Bilateral Throughout] Pulse Rate [ Apical] Respiratory 19 Rate Respiratory Rate [Anterior Bilateral Throughout] Blood Pressure 119/79 O2 Sat by Pulse 96 Oximetry Constitutional: other (critically ill on vent, awake, eyes open) Eyes: non-icteric ENT: oropharynx moist, other (intubated) Neck: supple Effort: normal Ascultation: Bilateral: rhonchi Cardiovascular: other (tachy, RR; no mrg) Gastrointestinal: normoactive bowel sounds, soft, non-tender, non-distended Extremities: no cyanosis, no edema, pink and warm Neurologic: other (eyes open, squeezes with hands L > R, not wiggling toes/moving LEs, appears to understand) Psychiatric: other (unable to assess) CBC and BMP: 12/04/18 08:01 12/04/18 08:01 ABG, PT/INR, D-dimer: ABG POC ABG pH 7.437 (7.35-7.45) 12/04/18 03:48 ABG pH 7.442 pH Units (7.350-7.450) 12/02/18 03:40 ABG pCO2 24.6 mm Hg 12/02/18 03:40 POC ABG pO2 82 (80-105) 12/04/18 03:48 ABG pO2 78.0 mm Hg (80.0-90.0) L 12/02/18 03:40 POC ABG HCO3 19.3 (22-26 mml/L) 12/04/18 03:48 POC ABG Total CO2 20 (23-27mmol/L) 12/04/18 03:48 POC ABG O2 Sat 97 12/04/18 03:48 ABG O2 Saturation 96.7 % (95.0-99.0) 12/02/18 03:40 PT/INR, D-dimer PT 17.0 Sec. (12.2-14.9) H 12/04/18 08:01 INR 1.42 (0.87-1.13) H 12/04/18 08:01 Abnormal lab findings: Abnormal Labs 11/29/18 11/29/18 11/29/18 13:07 13:39 13:39 WBC 3.2 L RBC 2.76 L Hgb 10.4 L Hct 32.1 L MCV 116 H MCH 38 H RDW 17.5 H Plt Count 48 L Lymph % (Auto) 5.4 L Lymph # 0.2 L Seg Neutrophils % 89.5 H PT INR POC ABG pH POC ABG pO2 ABG pO2 ABG HCO3 ABG O2 Saturation ABG Base Excess ABG Hemoglobin VBG pH Oxyhemoglobin Sodium 153 H Potassium Chloride 113.3 H Carbon Dioxide 21 L BUN 55 H Creatinine 2.4 H Glucose 260 H POC Glucose 289 H Calcium Iron TIBC AST 68 H Alkaline Phosphatase 239 H Total Creatine Kinase 243 H Troponin T 0.054 H Total Protein 5.8 L Albumin 3.0 L LDL Cholesterol Direct 30 L HDL Cholesterol 63 H Folate Urine Creatinine Salicylates Acetaminophen 11/29/18 11/29/18 11/29/18 13:39 13:39 13:39 WBC RBC Hgb Hct MCV MCH RDW Plt Count Lymph % (Auto) Lymph # Seg Neutrophils % PT INR POC ABG pH POC ABG pO2 ABG pO2 ABG HCO3 ABG O2 Saturation ABG Base Excess ABG Hemoglobin VBG pH 7.186 L* Oxyhemoglobin Sodium Potassium Chloride Carbon Dioxide BUN Creatinine Glucose POC Glucose Calcium Iron TIBC AST Alkaline Phosphatase Total Creatine Kinase Troponin T Total Protein Albumin LDL Cholesterol Direct HDL Cholesterol Folate Urine Creatinine Salicylates < 0.3 L Acetaminophen < 5.0 L 11/29/18 11/29/18 11/30/18 14:24 21:17 05:50 WBC RBC Hgb Hct MCV MCH RDW Plt Count Lymph % (Auto) Lymph # Seg Neutrophils % PT INR POC ABG pH 7.319 L POC ABG pO2 126 H ABG pO2 203.3 H ABG HCO3 18.5 L ABG O2 Saturation 99.3 H ABG Base Excess -6.2 L ABG Hemoglobin 10.9 L VBG pH Oxyhemoglobin Sodium Potassium Chloride Carbon Dioxide BUN Creatinine Glucose POC Glucose 242 H Calcium Iron TIBC AST Alkaline Phosphatase Total Creatine Kinase Troponin T Total Protein Albumin LDL Cholesterol Direct HDL Cholesterol Folate Urine Creatinine Salicylates Acetaminophen 11/30/18 11/30/18 11/30/18 08:52 10:31 10:58 WBC RBC 3.05 L Hgb 11.5 L Hct 35.3 L MCV 116 H MCH 38 H RDW 17.2 H Plt Count 43 L Lymph % (Auto) Lymph # Seg Neutrophils % PT INR POC ABG pH POC ABG pO2 ABG pO2 ABG HCO3 ABG O2 Saturation ABG Base Excess ABG Hemoglobin VBG pH Oxyhemoglobin Sodium 153 H Potassium Chloride 117.2 H Carbon Dioxide 18 L BUN 60 H Creatinine 2.8 H Glucose 216 H POC Glucose 234 H Calcium 8.2 L Iron TIBC AST Alkaline Phosphatase Total Creatine Kinase Troponin T Total Protein Albumin LDL Cholesterol Direct HDL Cholesterol Folate Urine Creatinine Salicylates Acetaminophen 11/30/18 11/30/18 11/30/18 12:40 14:20 17:35 WBC RBC Hgb Hct MCV MCH RDW Plt Count Lymph % (Auto) Lymph # Seg Neutrophils % PT INR POC ABG pH POC ABG pO2 ABG pO2 ABG HCO3 ABG O2 Saturation ABG Base Excess ABG Hemoglobin VBG pH Oxyhemoglobin Sodium Potassium Chloride Carbon Dioxide BUN Creatinine Glucose POC Glucose 235 H 182 H Calcium Iron TIBC AST Alkaline Phosphatase Total Creatine Kinase Troponin T Total Protein Albumin LDL Cholesterol Direct HDL Cholesterol Folate Urine Creatinine 173.8 H Salicylates Acetaminophen 11/30/18 12/01/18 12/01/18 23:53 04:08 04:08 WBC RBC 3.11 L Hgb 11.7 L Hct 35.3 L MCV 113 H MCH 38 H RDW 16.9 H Plt Count 43 L Lymph % (Auto) Lymph # Seg Neutrophils % PT INR POC ABG pH POC ABG pO2 ABG pO2 ABG HCO3 ABG O2 Saturation ABG Base Excess ABG Hemoglobin VBG pH Oxyhemoglobin Sodium 150 H Potassium Chloride 114.6 H Carbon Dioxide 16 L BUN 67 H Creatinine 2.9 H Glucose 193 H POC Glucose 149 H Calcium 8.2 L Iron TIBC AST Alkaline Phosphatase Total Creatine Kinase Troponin T Total Protein Albumin LDL Cholesterol Direct HDL Cholesterol Folate Urine Creatinine Salicylates Acetaminophen 12/01/18 12/01/18 12/01/18 04:55 05:11 13:33 WBC RBC Hgb Hct MCV MCH RDW Plt Count Lymph % (Auto) Lymph # Seg Neutrophils % PT INR POC ABG pH POC ABG pO2 ABG pO2 91.9 H ABG HCO3 17.7 L ABG O2 Saturation ABG Base Excess -6.1 L ABG Hemoglobin 11.5 L VBG pH Oxyhemoglobin Sodium Potassium Chloride Carbon Dioxide BUN Creatinine Glucose POC Glucose 236 H 255 H Calcium Iron TIBC AST Alkaline Phosphatase Total Creatine Kinase Troponin T Total Protein Albumin LDL Cholesterol Direct HDL Cholesterol Folate Urine Creatinine Salicylates Acetaminophen 12/01/18 12/02/18 12/02/18 18:20 00:17 03:40 WBC RBC Hgb Hct MCV MCH RDW Plt Count Lymph % (Auto) Lymph # Seg Neutrophils % PT INR POC ABG pH POC ABG pO2 ABG pO2 78.0 L ABG HCO3 16.4 L ABG O2 Saturation ABG Base Excess -6.2 L ABG Hemoglobin 11.4 L VBG pH Oxyhemoglobin 94.5 L Sodium Potassium Chloride Carbon Dioxide BUN Creatinine Glucose POC Glucose 177 H 192 H Calcium Iron TIBC AST Alkaline Phosphatase Total Creatine Kinase Troponin T Total Protein Albumin LDL Cholesterol Direct HDL Cholesterol Folate Urine Creatinine Salicylates Acetaminophen 12/02/18 12/02/18 12/02/18 05:11 05:26 07:50 WBC 4.1 L RBC 3.01 L Hgb 11.4 L Hct 34.1 L MCV 113 H MCH 38 H RDW 17.3 H Plt Count 40 L Lymph % (Auto) Lymph # Seg Neutrophils % PT INR POC ABG pH POC ABG pO2 ABG pO2 ABG HCO3 ABG O2 Saturation ABG Base Excess ABG Hemoglobin VBG pH Oxyhemoglobin Sodium Potassium 5.6 H D Chloride 113.0 H Carbon Dioxide 16 L BUN 73 H Creatinine 2.8 H Glucose 202 H POC Glucose 179 H Calcium Iron TIBC AST Alkaline Phosphatase Total Creatine Kinase Troponin T Total Protein Albumin LDL Cholesterol Direct HDL Cholesterol Folate Urine Creatinine Salicylates Acetaminophen 12/02/18 12/02/18 12/02/18 11:57 18:40 18:43 WBC RBC Hgb Hct MCV MCH RDW Plt Count Lymph % (Auto) Lymph # Seg Neutrophils % PT INR POC ABG pH POC ABG pO2 ABG pO2 ABG HCO3 ABG O2 Saturation ABG Base Excess ABG Hemoglobin VBG pH Oxyhemoglobin Sodium Potassium Chloride Carbon Dioxide BUN Creatinine Glucose POC Glucose 140 H 286 H 261 H Calcium Iron TIBC AST Alkaline Phosphatase Total Creatine Kinase Troponin T Total Protein Albumin LDL Cholesterol Direct HDL Cholesterol Folate Urine Creatinine Salicylates Acetaminophen 12/02/18 12/03/18 12/03/18 23:55 04:06 04:06 WBC 4.4 L RBC 2.96 L Hgb 11.3 L Hct 33.1 L MCV 112 H MCH 38 H RDW 16.7 H Plt Count 38 L Lymph % (Auto) Lymph # Seg Neutrophils % PT INR POC ABG pH POC ABG pO2 ABG pO2 ABG HCO3 ABG O2 Saturation ABG Base Excess ABG Hemoglobin VBG pH Oxyhemoglobin Sodium 146 H Potassium Chloride 112.5 H Carbon Dioxide 18 L BUN 71 H Creatinine 2.5 H Glucose 258 H POC Glucose 303 H Calcium 8.3 L Iron TIBC AST Alkaline Phosphatase Total Creatine Kinase Troponin T Total Protein Albumin LDL Cholesterol Direct HDL Cholesterol Folate Urine Creatinine Salicylates Acetaminophen 12/03/18 12/03/18 12/03/18 05:17 11:25 17:46 WBC RBC Hgb Hct MCV MCH RDW Plt Count Lymph % (Auto) Lymph # Seg Neutrophils % PT INR POC ABG pH POC ABG pO2 ABG pO2 ABG HCO3 ABG O2 Saturation ABG Base Excess ABG Hemoglobin VBG pH Oxyhemoglobin Sodium Potassium Chloride Carbon Dioxide BUN Creatinine Glucose POC Glucose 328 H 288 H 202 H Calcium Iron TIBC AST Alkaline Phosphatase Total Creatine Kinase Troponin T Total Protein Albumin LDL Cholesterol Direct HDL Cholesterol Folate Urine Creatinine Salicylates Acetaminophen 12/04/18 12/04/18 12/04/18 01:15 05:47 08:01 WBC RBC 3.11 L Hgb 11.7 L Hct MCV 115 H MCH 38 H RDW 17.6 H Plt Count 35 L Lymph % (Auto) 6.9 L Lymph # 0.3 L Seg Neutrophils % 87.7 H PT INR POC ABG pH POC ABG pO2 ABG pO2 ABG HCO3 ABG O2 Saturation ABG Base Excess ABG Hemoglobin VBG pH Oxyhemoglobin Sodium Potassium Chloride Carbon Dioxide BUN Creatinine Glucose POC Glucose 282 H 265 H Calcium Iron TIBC AST Alkaline Phosphatase Total Creatine Kinase Troponin T Total Protein Albumin LDL Cholesterol Direct HDL Cholesterol Folate Urine Creatinine Salicylates Acetaminophen 12/04/18 12/04/18 12/04/18 08:01 08:01 08:01 WBC RBC Hgb Hct MCV MCH RDW Plt Count Lymph % (Auto) Lymph # Seg Neutrophils % PT 17.0 H INR 1.42 H POC ABG pH POC ABG pO2 ABG pO2 ABG HCO3 ABG O2 Saturation ABG Base Excess ABG Hemoglobin VBG pH Oxyhemoglobin Sodium Potassium Chloride 114.6 H Carbon Dioxide 20 L BUN 62 H Creatinine 2.0 H Glucose 266 H POC Glucose Calcium 8.3 L Iron 20 L TIBC 168 L AST Alkaline Phosphatase 292 H Total Creatine Kinase Troponin T Total Protein 5.2 L Albumin 2.1 L LDL Cholesterol Direct HDL Cholesterol Folate 7.24 L Urine Creatinine Salicylates Acetaminophen 12/04/18 11:59 WBC RBC Hgb Hct MCV MCH RDW Plt Count Lymph % (Auto) Lymph # Seg Neutrophils % PT INR POC ABG pH POC ABG pO2 ABG pO2 ABG HCO3 ABG O2 Saturation ABG Base Excess ABG Hemoglobin VBG pH Oxyhemoglobin Sodium Potassium Chloride Carbon Dioxide BUN Creatinine Glucose POC Glucose 267 H Calcium Iron TIBC AST Alkaline Phosphatase Total Creatine Kinase Troponin T Total Protein Albumin LDL Cholesterol Direct HDL Cholesterol Folate Urine Creatinine Salicylates Acetaminophen Chest x-ray: report reviewed, image reviewed
--- NOTE | 2018-12-04 16:40 | Progress Note ---
Assessment and Plan Cultures: 11/29 BCx - NGTD 11/29 UCx - NGTD serum Crypto Ag negative Assessment: : 73 yo M PMHx HIV, HTN, HLD admitted with AMS 1. SIRS possible sepsis - hypothermia and pancytopenia on admission and negative blood cultures. Unclear source. Hypothermia resolved. Etiology ?hormonal (thyroid/Allen's) v/s opportunistic fungi like histoplasma seen in HIV patients causing Allen's (however last reported CD4 250) 2. Altered mental status - unclear?. HIV related? some better. Possibly due to ongoing microvascular disease with ischemia. Able to passively move neck on exam, but difficult to assess for meningismus. Continue empiric antibiotics for now with cefepime 3. HIV - Well controlled at recent visit. Accidentally ordered qualitative VL last time, but genotype was unable to be performed thus meaning the VL was at least under 1000, and most likely undetectable. CD4 ~ 250. Continue home regimen of raltegravir, lamivudine, abacavir, zidovudine. 4. CONNIE -better 5. Pancytopenia mainly Thrombocytopenia: ? HIV, worsening 6. Acute respiratory failure: intubated for airway protection. Recommendations: - continue cefepime 2g q12h D5 - obtain lumbar puncture ordered yesterday, CSF for cell count, diff, culture, glucose, protein, CMV DNA PCR, HSV DNA PCR, JAREK DNA PCR, VDRL - obtain neuro consult, EEG - Brain MRI unable to obtain during weekend - check am cortisol - ordered - check viral hepatitis panel - negative - check Histoplasma urine antigen - ordered - continue ART - abacavir, raltegravir, zidovudine. Renally dosed lamivudine to 100mg daily. Will follow. Dr Quinton cantu tomorrow. MD [facility] ([facility]) M: [phone] O: [phone] F: [phone] Subjective Date of service: 12/04/18 Principal diagnosis: low plt Interval history: Non-responsive. Afebrile, normal white count. Objective - Exam Narrative Exam: Physical Exam: Constitutional: non-responsive. Head, Ears, Nose: Normocephalic, atraumatic. External ears, nose normal Eyes: Conjunctivae/corneas clear. No icterus. No ptosis. Neck: Supple, no meningeal signs Oral: intubated Cardiovascular: S1, S2 normal. Respiratory: Good air entry, clear to auscultation bilaterally GI: Soft, non-tender; bowel sounds normal. No peritoneal signs. Musculoskeletal: No pedal edema, no cyanosis. Skin: No rash or abscess Hem/Lymphatic: No palpable cervical or supraclavicular nodes. No lymphangitis Psych: Mood ok. Affect normal Neurological: Intubated, non-responsive - Constitutional Vitals: Vital Signs Temp Pulse Resp BP Pulse Ox 97.8 F 111 H 16 119/79 100 12/04/18 12:00 12/04/18 15:24 12/04/18 14:00 12/04/18 15:24 12/04/18 15:24 Temperature -Last 24 Hours Temperature 97.8 F Temperature 96.1 F Temperature 97.4 F Temperature 98.4 F Temperature 97.5 F - Labs CBC & Chem 7: 12/04/18 08:01 12/04/18 08:01 Labs: Abnormal lab results 12/03/18 12/04/18 12/04/18 Range/Units 17:46 01:15 05:47 RBC (3.65-5.03) M/mm3 Hgb (11.8-15.2) gm/dl MCV (84-94) fl MCH (28-32) pg RDW (13.2-15.2) % Plt Count (140-440) K/mm3 Lymph % (Auto) (13.4-35.0) % Lymph # (1.2-5.4) K/mm3 Seg Neutrophils % (40.0-70.0) % PT (12.2-14.9) Sec. INR (0.87-1.13) Chloride (98-107) mmol/L Carbon Dioxide (22-30) mmol/L BUN (9-20) mg/dL Creatinine (0.8-1.5) mg/dL Glucose (75-100) mg/dL POC Glucose 202 H 282 H 265 H (70-105) Calcium (8.4-10.2) mg/dL Iron (49-181) ug/dL TIBC (250-450) mcg/dL Alkaline Phosphatase (35-129) units/L Total Protein (6.3-8.2) g/dL Albumin (3.9-5) g/dL Folate (7.3-26.0) ng/mL 12/04/18 12/04/18 12/04/18 Range/Units 08:01 08:01 08:01 RBC 3.11 L (3.65-5.03) M/mm3 Hgb 11.7 L (11.8-15.2) gm/dl MCV 115 H (84-94) fl MCH 38 H (28-32) pg RDW 17.6 H (13.2-15.2) % Plt Count 35 L (140-440) K/mm3 Lymph % (Auto) 6.9 L (13.4-35.0) % Lymph # 0.3 L (1.2-5.4) K/mm3 Seg Neutrophils % 87.7 H (40.0-70.0) % PT 17.0 H (12.2-14.9) Sec. INR 1.42 H (0.87-1.13) Chloride 114.6 H (98-107) mmol/L Carbon Dioxide 20 L (22-30) mmol/L BUN 62 H (9-20) mg/dL Creatinine 2.0 H (0.8-1.5) mg/dL Glucose 266 H (75-100) mg/dL POC Glucose (70-105) Calcium 8.3 L (8.4-10.2) mg/dL Iron 20 L (49-181) ug/dL TIBC 168 L (250-450) mcg/dL Alkaline Phosphatase 292 H (35-129) units/L Total Protein 5.2 L (6.3-8.2) g/dL Albumin 2.1 L (3.9-5) g/dL Folate (7.3-26.0) ng/mL 12/04/18 12/04/18 Range/Units 08:01 11:59 RBC (3.65-5.03) M/mm3 Hgb (11.8-15.2) gm/dl MCV (84-94) fl MCH (28-32) pg RDW (13.2-15.2) % Plt Count (140-440) K/mm3 Lymph % (Auto) (13.4-35.0) % Lymph # (1.2-5.4) K/mm3 Seg Neutrophils % (40.0-70.0) % PT (12.2-14.9) Sec. INR (0.87-1.13) Chloride (98-107) mmol/L Carbon Dioxide (22-30) mmol/L BUN (9-20) mg/dL Creatinine (0.8-1.5) mg/dL Glucose (75-100) mg/dL POC Glucose 267 H (70-105) Calcium (8.4-10.2) mg/dL Iron (49-181) ug/dL TIBC (250-450) mcg/dL Alkaline Phosphatase (35-129) units/L Total Protein (6.3-8.2) g/dL Albumin (3.9-5) g/dL Folate 7.24 L (7.3-26.0) ng/mL
--- NOTE | 2018-12-04 17:14 | Progress Note ---
Assessment and Plan Assessment and plan: Patient is a 73 yo man from [facility] with severe end-stage co-morbities including HIV, type 2 DM, NSTEMI type 2, hyperkalemia, hypernatremia, malnutrition, severe CHF with EF 15-20%, Dementia, CVA with SAH after fall here at [facility] on 05/22/18 with transferred to [facility], recurrent bouts of hypog lycmia, who had been admitted 3 times this month of November 2018. Initially he was admitted on 10/24/18 to 11/01/18 due to AMS, new CVA was ruled out by MRI but did show chronic infarcts in the right parietal lobe and the right MCA [employer] watershed territory and chronic lacunar infarct in the right paracentral [place] area. It was recommended that patient go to SNF but refused and took him home. He returned 2 days later due to hypoglycemia, it appears he wasn't eating enough but still taking DM medications. He was then discharged to [facility] on 11/07/2018. He returned 2 days later on 11/09/2018 due to hypoxemia and hypoglycemia again. He was discharged back to the CO on . Now he returns to the ED on 11/29/18 with severe worsening AMS GCS of 5 requiring Intubation. I do not know why he is on Fentanyl drip. * CT head without contrast Impression: There is continued extensive microvascula r angiopathy as detailed...without CT evidence of acute ICH. * pCXR Impression: Minimal interstitial edema, ngt in stomach, needs advancing 5-10 cm, borderline cardiomegaly, no consolidation or effusion * Abd XRAY after NGT advancement, shows it is in the correct position Acute Metabolic Encephalopathy, poa, work up in progress: ? secondary to HIV, consulted Neurology, input noted, MRI pending Acute respiratory failure >96 hours poa s/p ETT placement: consulted Pulmonology, input noted SIRS with possible Sepsis: Continue cefepime, ID following, awaiting cultures. LP not done due to thrombocytopenia Acute on chronic systolic heart failure (congestive heart failure) 15-20%, mild: treat medically, bp borderline too low for IV lasix, consulted Cardiology, input noted HIV (human immunodeficiency virus infection): ID consulted, input noted Acute renal insufficiency, ATN + vasomotor nephropathy, poa: monitor uop q shift, nephrology consulted, urine electrolytes, strict I/O, monitor uop q shift, monitor fluid balance, monitor serum creatnine, Type 2 DM on Insulin with recurrent hypoglycemia: treat with SSI, ADA Severe malnutrition, as evidence by decubitus ulcers, inadequate nutritional i ntake, and muscle wasting. 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 Unclear source. CC-35 mins History Interval history: Patient was seen and examined. Follow-up on current diagnosis of AMS. No overnight events reported to me. Imaging, nursing note, chart, labs and old chart reviewed. No family at bedside, patient remains unreponsive, Hospitalist Physical - Physical exam Narrative exam: Gen: cachetic, intubated and sedated on fentanyl drip HEENT: NCAT, pupils pinpoint Neck: supple, no adenopathy, no thyromegaly, CVS/Heart: RRR, normal S1S2, pulses present bilaterally Chest/Lungs: diminished BS, Symmetrical chest expansion, good air entry bilaterally GI/Abdomen: soft, NTND, good bowel sounds, no guarding or rebound /Bladder: no suprapubic tenderness, no CVA or paraspinal tenderness Extermity/Skin: ble edema MSK: intubated and sedated Neuro: intubated and sedated Psych: intubated and sedated - Constitutional Vitals: Temp Pulse Resp BP Pulse Ox 97.5 F L 118 H 30 H 124/81 97 12/04/18 16:00 12/04/18 17:00 12/04/18 17:00 12/04/18 17:00 12/04/18 17:00 General appearance: Present: no acute distress, other (intubated on cpap) Results - Labs CBC & Chem 7: 12/05/18 03:42 12/05/18 03:42 Labs: Laboratory Last Values WBC 5.0 K/mm3 (4.5-11.0) 12/04/18 08:01 RBC 3.11 M/mm3 (3.65-5.03) L 12/04/18 08:01 Hgb 11.7 gm/dl (11.8-15.2) L 12/04/18 08:01 Hct 35.8 % (35.5-45.6) 12/04/18 08:01 MCV 115 fl (84-94) H 12/04/18 08:01 MCH 38 pg (28-32) H 12/04/18 08:01 MCHC 33 % (32-34) 12/04/18 08:01 RDW 17.6 % (13.2-15.2) H 12/04/18 08:01 Plt Count 35 K/mm3 (140-440) L 12/04/18 08:01 Lymph % (Auto) 6.9 % (13.4-35.0) L 12/04/18 08:01 [place] % (Auto) 5.0 % (0.0-7.3) 12/04/18 08:01 Eos % (Auto) 0.3 % (0.0-4.3) 12/04/18 08:01 Baso % (Auto) 0.1 % (0.0-1.8) 12/04/18 08:01 Lymph # 0.3 K/mm3 (1.2-5.4) L 12/04/18 08:01 [place] # 0.3 K/mm3 (0.0-0.8) 12/04/18 08:01 Eos # 0.0 K/mm3 (0.0-0.4) 12/04/18 08:01 Baso # 0.0 K/mm3 (0.0-0.1) 12/04/18 08:01 Seg Neutrophils % 87.7 % (40.0-70.0) H 12/04/18 08:01 Seg Neutrophils # 4.4 K/mm3 (1.8-7.7) 12/04/18 08:01 PT 17.0 Sec. (12.2-14.9) H 12/04/18 08:01 INR 1.42 (0.87-1.13) H 12/04/18 08:01 APTT 36.4 Sec. (24.2-36.6) 12/04/18 08:01 POC ABG pH 7.437 (7.35-7.45) 12/04/18 03:48 ABG pH 7.442 pH Units (7.350-7.450) 12/02/18 03:40 POC ABG pCO2 39.5 (35-45) 11/29/18 14:24 ABG pCO2 24.6 mm Hg 12/02/18 03:40 POC ABG pO2 82 (80-105) 12/04/18 03:48 ABG pO2 78.0 mm Hg (80.0-90.0) L 12/02/18 03:40 POC ABG HCO3 19.3 (22-26 mml/L) 12/04/18 03:48 ABG HCO3 16.4 mmol/L (20.0-26.0) L 12/02/18 03:40 POC ABG Total CO2 20 (23-27mmol/L) 12/04/18 03:48 POC ABG O2 Sat 97 12/04/18 03:48 ABG O2 Saturation 96.7 % (95.0-99.0) 12/02/18 03:40 ABG O2 Content 15.2 (0.0-44) 12/02/18 03:40 POC ABG Base Excess -5 ((-2) - (+3)mmol/L) 12/04/18 03:48 ABG Base Excess -6.2 mmol/L (-2.0-3.0) L 12/02/18 03:40 ABG Hemoglobin 11.4 gm/dl (14.0-18.0) L 12/02/18 03:40 ABG Carboxyhemoglobin 1.7 % (0.0-5.0) 12/02/18 03:40 ABG Methemoglobin 0.5 % (0.0-1.5) 12/02/18 03:40 VBG pH 7.186 (7.320-7.420) L* 11/29/18 13:39 94.5 % (95.0-99.0) L 12/02/18 03:40 25 % 12/04/18 03:48 Sodium 145 mmol/L (137-145) 12/04/18 08:01 Potassium 3.9 mmol/L (3.6-5.0) 12/04/18 08:01 Chloride 114.6 mmol/L (98-107) H 12/04/18 08:01 Carbon Dioxide 20 mmol/L (22-30) L 12/04/18 08:01 14 mmol/L 12/04/18 08:01 BUN 62 mg/dL (9-20) H 12/04/18 08:01 2.0 mg/dL (0.8-1.5) H 12/04/18 08:01 Estimated GFR 40 ml/min 12/04/18 08:01 31 % 12/04/18 08:01 Glucose 266 mg/dL (75-100) H 12/04/18 08:01 POC Glucose 267 (70-105) H 12/04/18 11:59 Lactic Acid 1.30 mmol/L (0.7-2.0) 11/29/18 14:42 Calcium 8.3 mg/dL (8.4-10.2) L 12/04/18 08:01 Phosphorus 2.80 mg/dL (2.5-4.5) 12/04/18 08:01 Magnesium 2.10 mg/dL (1.7-2.3) 12/04/18 08:01 Iron 20 ug/dL (49-181) L 12/04/18 08:01 TIBC 168 mcg/dL (250-450) L 12/04/18 08:01 174.3 ng/mL (13.0-400.0) 12/04/18 08:01 0.50 mg/dL (0.1-1.2) 12/04/18 08:01 AST 24 units/L (5-40) 12/04/18 08:01 ALT 32 units/L (7-56) 12/04/18 08:01 292 units/L (35-129) H 12/04/18 08:01 28.0 umol/L (25-60) 11/29/18 13:39 243 units/L (55-170) H 11/29/18 13:39 0.054 ng/mL (0.00-0.029) H 11/29/18 13:39 5.2 g/dL (6.3-8.2) L 12/04/18 08:01 2.1 g/dL (3.9-5) L 12/04/18 08:01 0.7 % 12/04/18 08:01 Triglycerides 68 mg/dL (2-149) 11/29/18 13:39 Cholesterol 95 mg/dL (50-199) 11/29/18 13:39 30 mg/dL (50-130) L 11/29/18 13:39 63 mg/dL (40-59) H 11/29/18 13:39 1.50 % 11/29/18 13:39 7.24 ng/mL (7.3-26.0) L 12/04/18 08:01 14.8 mcg/dL () 12/01/18 09:08 Yellow (Yellow) 11/29/18 13:16 Clear (Clear) 11/29/18 13:16 5.0 (5.0-7.0) 11/29/18 13:16 Ur Specific [place] 1.018 (1.003-1.030) 11/29/18 13:16 30 mg/dl mg/dL (Negative) 11/29/18 13:16 Neg mg/dL (Negative) 11/29/18 13:16 Neg mg/dL (Negative) 11/29/18 13:16 Neg (Negative) 11/29/18 13:16 Neg (Negative) 11/29/18 13:16 Neg (Negative) 11/29/18 13:16 < 2.0 mg/dL (<2.0) 11/29/18 13:16 Ur Leukocyte Esterase Neg (Negative) 11/29/18 13:16 5.0 /HPF (0.0-6.0) 11/29/18 13:16 2.0 /HPF (0.0-6.0) 11/29/18 13:16 1+ /HPF (Negative) 11/29/18 13:16 173.8 mg/dL (0.1-20.0) H 11/30/18 14:20 18 mmol/L 11/30/18 14:20 Random Vancomycin 10.7 ug/mL (0-40.0) 12/01/18 13:20 Salicylates < 0.3 mg/dL (2.8-20.0) L 11/29/18 13:39 Presumptive negative 11/29/18 13:16 Presumptive negative 11/29/18 13:16 Acetaminophen < 5.0 ug/mL (10.0-30.0) L 11/29/18 13:39 Ur Barbiturates Screen Presumptive negative 11/29/18 13:16 Ur Phencyclidine Scrn Presumptive negative 11/29/18 13:16 Ur Amphetamines Screen Presumptive negative 11/29/18 13:16 U Benzodiazepines Scrn Presumptive negative 11/29/18 13:16 Presumptive negative 11/29/18 13:16 U Marijuana (THC) Screen Presumptive negative 11/29/18 13:16 Disclamer 11/29/18 13:16 Non-reactive (NonReactive) 12/01/18 04:08 RPR Nonreactive (Nonreactive) 12/02/18 17:04 Hepatitis A IgM Ab Non-reactive (NonReactive) 12/02/18 17:04 Hep Bs Antigen Non-reactive (Negative) 12/02/18 17:04 Hep B Core IgM Ab Non-reactive (NonReactive) 12/02/18 17:04 Non-reactive (NonReactive) 12/02/18 17:04 Blood Type B POSITIVE 11/29/18 13:39 Antibody Screen Negative 11/29/18 13:39 Active Medications - Current Medications Current Medications: Generic Name Dose Route Start Last Admin Trade Name Freq PRN Reason Stop Dose Admin Abacavir Sulfate 600 mg 11/30/18 16:00 12/04/18 10:12 Ziagen PO 600 mg DAILY KEN Administration Albuterol 2.5 mg 11/30/18 00:17 Proventil IH Q4HRT PRN Shortness Of Breath Albuterol/Ipratropium 1 ampul 11/30/18 08:00 12/04/18 12:31 Duoneb *Not For Prn Use* IH 1 ampul QIDRT KEN Administration Lipase/Protease/Amylase 1 each 12/03/18 10:42 Pancredavis [place] 10,500 Unit FEEDTUBE PRN PRN For Clogged Feeding Tube Famotidine 10 mg 12/04/18 11:00 12/04/18 10:12 Pepcid PO 10 mg BID KEN Administration Folic Acid 1 mg 12/04/18 12:00 12/04/18 12:26 Folvite PO 1 mg QDAY KEN Administration Cefepime HCl 2 gm in 100 mls @ 200 mls/hr 11/30/18 22:00 12/03/18 21:33 Maxipime/Ns 2 Gm/100 Ml IV 200 mls/hr Q24H KEN Administration Protocol Insulin Human Lispro 0 unit 11/30/18 07:00 12/04/18 12:22 Humalog SUB-Q 4 unit Q6HR KEN Administration Protocol Lamivudine 100 mg 12/02/18 10:00 12/04/18 10:13 Epivir PO 100 mg DAILY KNE Administration Metoclopramide HCl 5 mg 11/30/18 00:22 Reglan IV Q6H PRN Nausea And Vomiting Ondansetron HCl 4 mg 11/30/18 00:06 Zofran IV Q8H PRN Nausea And Vomiting Raltegravir 400 mg 11/30/18 16:00 12/04/18 10:13 Isentress PO 400 mg BID KEN Administration Simple Syrup 15 ml 12/03/18 10:42 Simple Syrup FEEDTUBE PRN PRN Hypoglycemia Simple Syrup 30 ml 12/03/18 10:42 Simple Syrup FEEDTUBE PRN PRN Hypoglycemia Sodium Bicarbonate 325 mg 12/03/18 10:42 Sodium Bicarbonate FEEDTUBE PRN PRN For Clogged Feeding Tube Sodium Chloride 10 ml 11/30/18 10:00 12/04/18 10:14 Sodium Chloride Flush Syringe 10 Ml IV 10 ml BID KEN Administration Sodium Chloride 10 ml 11/30/18 00:06 Sodium Chloride Flush Syringe 10 Ml IV PRN PRN LINE FLUSH Zidovudine 300 mg 11/30/18 16:00 12/04/18 10:13 Retrovir PO 300 mg BID KEN Administration Nutrition/Malnutrition Assess - Dietary Evaluation Nutrition/Malnutrition Findings: Nutrition Notes Start: 11/30/18 08:33 Freq: Status: Active Protocol: Document 12/04/18 11:07 LM (Rec: 12/04/18 11:18 LM [id number]) Nutrition Notes Initial or Follow up Reassessment Current Diagnosis Acute Kidney Injury,COPD, Diabetes,Hypertension Other Pertinent Diagnosis dementia, HIV, AMS Current Diet [place] at 50 ml/hr Labs/Tests BUN 62 Cr 2 BG 266 Pertinent Medications Humalog Height 6 ft 4 in Weight 79.2 kg [place] Body Weight (kg) 91.81 BMI 21.2 Subjective/Other Information TF not running at time of visit. Pt NPO since last night for lumbar puncture this AM. Percent of energy/protein needs met: 0%/0% Burn Absent Trauma Absent #1 Nutrition Diagnosis Inadequate oral intake Diagnosis Progress(for reassessment Continues documentation) Is patient on ventilator? Yes Is Patient Ambulatory and/or Out of Bed No REE-([facility]-confined to bed) 1966.356 Kcal/Kg value to use for calculation 27 Approximate Energy Requirements Using 2138 kcal/Kg Calculation Used for Recommendations Kcal/kg Additional Notes Protein: 95-158g (1.2-2g/kg) Fluids 1 ml/kcal or per MD Nutrition Intervention Change Diet Order: Continue TF Nutrition Support: Change to Nepro with Carbsteady at 50 ml/hr Flush 200 ml q4hr Kcal 2,160 Protein (gm) 97 Fluid (mL) 872 Goal #1 TF restart/tolerance Goal #2 Meet at least 80% of energy and protein needs Follow-Up By: 12/06/18 Additional Comments F/U for TF restart/tolerance, renal labs
[2018-12-04] MEDS ORDERED: SUBLIMAZE IV PRN (17:24)
[2018-12-04] MEDS: SUBLIMAZE IV PRN (17:36)
[2018-12-04] MEDS ORDERED: NACL 0.9% 500 ML 500 ML IV ONE (18:18)
[2018-12-04] MEDS ORDERED: NACL 0.9% 250ML 250 ML ONE (20:38)
[2018-12-04] MEDS: MAXIPIME/NS 2 GM/100 ML 2 GM/100 ML BAG IV SCH (22:06)
[2018-12-05] MEDS: HumaLOG SUB-Q SCH ×4 (00:08→18:39)
[2018-12-05] MEDS: SUBLIMAZE IV PRN (03:01)
[2018-12-05 04:04] LABS: Basophils % (Auto) 0.1 % (0.0-1.8); Eosinophils % (Auto) 0.1 % (0.0-4.3); Hematocrit 32.2 % (35.5-45.6); Hemoglobin 10.8 gm/dl (11.8-15.2); Lymphocytes # (Auto) 0.3 K/mm3 (1.2-5.4); Lymphocytes % (Auto) 5.5 % (13.4-35.0); Mean Corpuscular HGB Conc 34 % (32-34); Monocytes # (Auto) 0.3 K/mm3 (0.0-0.8); Monocytes % (Auto) 4.4 % (0.0-7.3); Red Blood Count 2.89 M/mm3 (3.65-5.03); Red Cell Distribution Width 16.8 % (13.2-15.2)
[2018-12-05 04:11] LABS: Mean Corpuscular Volume 111 fl (84-94); Platelet Count 47 K/mm3 (140-440)
[2018-12-05 04:31] LABS: Calcium 8.3 mg/dL (8.4-10.2)
[2018-12-05 04:36] LABS: ABG HCO3 20.4 mmol/L (20.0-26.0); ABG Methemoglobin 0.5 % (0.0-1.5); ABG Oxygen Saturation 96.5 % (95.0-99.0); ABG PCO2 34.3 mm Hg; ABG PH 7.392 pH Units (7.350-7.450); ABG PO2 75.1 mm Hg (80.0-90.0)
--- NOTE | 2018-12-05 06:52 | Hem/Onc Progress Note ---
Assessment and Plan 1. Thrombocytopenia. The patient has multiple issues, which include HIV/immunosuppression medications. 2. At this time, there is no active bleeding. 3. h/o Unresponsive. 4. Leukopenia. 5. Macrocytosis. This may be medication related. 6. History of diabetes. 7. History of hypertension. 8. History of cerebrovascular accident. 9. History of dementia. 10. Chronic obstructive pulmonary disease. 11. Renal impairment. 12. Metabolic encephalopathy. 13. h/o Intubation. Respiratory support. 14. I will follow the patient during inpatient stay. We will do deficiency investigations and follow the patient. B12 is normal. ID following for HIV 12/05- s/p plt transfusion on 12/04 - Patient Problems (1) Thrombocytopenia Current Visit: Yes Status: Acute Subjective Date of service: 12/05/18 Principal diagnosis: low plt - HIV Interval history: as per RN - pt got plt transfusion yesterday Objective - Exam Narrative Exam: Pain - not verbal General appearance - not verbal - intubated Performance status complete dependence Eyes - no icterus ENT - no bleeding LNs cervical - not palpable Neck - no LN Respiratory Normal Breath sounds - CTA anteriorly CVS S1 S2 + Extremities no edema General GI Soft Rectal deferred male - deferred Skin warm Musculoskeletal not moving Neurologically non verbal - Constitutional Vitals: Last Vital Signs Temp 98.9 F 12/05/18 04:00 Pulse 112 H 12/05/18 06:00 Resp 21 12/05/18 06:00 BP 111/79 12/05/18 06:00 Pulse Ox 96 12/05/18 06:00 - Labs Lab Results: Laboratory Results - last 24 hr 12/01/18 12/04/18 12/04/18 09:08 08:01 08:01 WBC 5.0 RBC 3.11 L Hgb 11.7 L Hct 35.8 MCV 115 H MCH 38 H MCHC 33 RDW 17.6 H Plt Count 35 L Lymph % (Auto) 6.9 L [place] % (Auto) 5.0 Eos % (Auto) 0.3 Baso % (Auto) 0.1 Lymph # 0.3 L [place] # 0.3 Eos # 0.0 Baso # 0.0 Seg Neutrophils % 87.7 H Seg Neutrophils # 4.4 PT INR APTT ABG pH ABG pCO2 ABG pO2 ABG HCO3 ABG O2 Saturation ABG O2 Content ABG Base Excess ABG Hemoglobin ABG Carboxyhemoglobin ABG Methemoglobin Oxyhemoglobin FiO2 Sodium 145 Potassium 3.9 Chloride 114.6 H Carbon Dioxide 20 L Anion Gap 14 BUN 62 H Creatinine 2.0 H Estimated GFR 40 BUN/Creatinine Ratio 31 Glucose 266 H POC Glucose Calcium 8.3 L Phosphorus 2.80 Magnesium 2.10 Iron 20 L TIBC 168 L Ferritin Total Bilirubin 0.50 AST 24 ALT 32 Alkaline Phosphatase 292 H Total Protein 5.2 L Albumin 2.1 L Albumin/Globulin Ratio 0.7 Vitamin B12 Folate Total Cortisol 14.8 Blood Type 12/04/18 12/04/18 12/04/18 08:01 08:01 08:01 WBC RBC Hgb Hct MCV MCH MCHC RDW Plt Count Lymph % (Auto) [place] % (Auto) Eos % (Auto) Baso % (Auto) Lymph # [place] # Eos # Baso # Seg Neutrophils % Seg Neutrophils # PT 17.0 H INR 1.42 H APTT 36.4 ABG pH ABG pCO2 ABG pO2 ABG HCO3 ABG O2 Saturation ABG O2 Content ABG Base Excess ABG Hemoglobin ABG Carboxyhemoglobin ABG Methemoglobin Oxyhemoglobin FiO2 Sodium Potassium Chloride Carbon Dioxide Anion Gap BUN Creatinine Estimated GFR BUN/Creatinine Ratio Glucose POC Glucose Calcium Phosphorus Magnesium Iron TIBC Ferritin 174.3 Total Bilirubin AST ALT Alkaline Phosphatase Total Protein Albumin Albumin/Globulin Ratio Vitamin B12 Folate 7.24 L Total Cortisol Blood Type 12/04/18 12/04/18 12/04/18 11:59 17:59 22:59 WBC RBC Hgb Hct MCV MCH MCHC RDW Plt Count Lymph % (Auto) [place] % (Auto) Eos % (Auto) Baso % (Auto) Lymph # [place] # Eos # Baso # Seg Neutrophils % Seg Neutrophils # PT INR APTT ABG pH ABG pCO2 ABG pO2 ABG HCO3 ABG O2 Saturation ABG O2 Content ABG Base Excess ABG Hemoglobin ABG Carboxyhemoglobin ABG Methemoglobin Oxyhemoglobin FiO2 Sodium Potassium Chloride Carbon Dioxide Anion Gap BUN Creatinine Estimated GFR BUN/Creatinine Ratio Glucose POC Glucose 267 H 226 H 341 H Calcium Phosphorus Magnesium Iron TIBC Ferritin Total Bilirubin AST ALT Alkaline Phosphatase Total Protein Albumin Albumin/Globulin Ratio Vitamin B12 Folate Total Cortisol Blood Type 12/04/18 12/05/18 12/05/18 Unknown 03:42 03:42 WBC RBC Hgb Hct MCV MCH MCHC RDW Plt Count Lymph % (Auto) [place] % (Auto) Eos % (Auto) Baso % (Auto) Lymph # [place] # Eos # Baso # Seg Neutrophils % Seg Neutrophils # PT INR APTT ABG pH ABG pCO2 ABG pO2 ABG HCO3 ABG O2 Saturation ABG O2 Content ABG Base Excess ABG Hemoglobin ABG Carboxyhemoglobin ABG Methemoglobin Oxyhemoglobin FiO2 Sodium 146 H Potassium 3.8 Chloride 113.3 H Carbon Dioxide 19 L Anion Gap 18 BUN 55 H Creatinine 1.8 H Estimated GFR 45 BUN/Creatinine Ratio 31 Glucose 268 H POC Glucose Calcium 8.3 L Phosphorus Magnesium Iron TIBC Ferritin Total Bilirubin AST ALT Alkaline Phosphatase Total Protein Albumin Albumin/Globulin Ratio Vitamin B12 1798 H Folate Total Cortisol Blood Type B POSITIVE 12/05/18 12/05/18 03:42 04:14 WBC 6.2 RBC 2.89 L Hgb 10.8 L Hct 32.2 L MCV 111 H MCH 37 H MCHC 34 RDW 16.8 H Plt Count 47 L Lymph % (Auto) 5.5 L [place] % (Auto) 4.4 Eos % (Auto) 0.1 Baso % (Auto) 0.1 Lymph # 0.3 L [place] # 0.3 Eos # 0.0 Baso # 0.0 Seg Neutrophils % 89.9 H Seg Neutrophils # 5.5 PT INR APTT ABG pH 7.392 ABG pCO2 34.3 ABG pO2 75.1 L ABG HCO3 20.4 ABG O2 Saturation 96.5 ABG O2 Content 11.0 ABG Base Excess -4.0 L ABG Hemoglobin 8.2 L ABG Carboxyhemoglobin 2.1 ABG Methemoglobin 0.5 Oxyhemoglobin 94.0 L FiO2 25 Sodium Potassium Chloride Carbon Dioxide Anion Gap BUN Creatinine Estimated GFR BUN/Creatinine Ratio Glucose POC Glucose Calcium Phosphorus Magnesium Iron TIBC Ferritin Total Bilirubin AST ALT Alkaline Phosphatase Total Protein Albumin Albumin/Globulin Ratio Vitamin B12 Folate Total Cortisol Blood Type Medications & Allergies - Medications Allergies/Adverse Reactions: Allergies No Known Allergies Allergy (Unverified 03/29/16 00:43) Home Medications: Home Medications Medication Instructions Recorded Confirmed Last Taken Type Aspirin [Aspirin BABY CHEW TAB] 81 mg PO QDAY #30 tab.chew 11/15/17 11/29/18 Unknown Rx Amlodipine Besylate 10 mg PO QDAY 05/21/18 11/29/18 Unknown History Carvedilol 6.25 mg PO BID 05/21/18 11/29/18 Unknown History Isentress 400 mg PO Q12HR 05/21/18 11/29/18 Unknown History Rosuvastatin Calcium 10 mg PO DAILY 05/21/18 11/29/18 Unknown History Memantine [Namenda] 5 mg PO QDAY #30 tablet 11/01/18 11/29/18 Unknown Rx Albuterol Sulfate [Albuterol 0.63% 0.63 mg IH TID PRN 30 Days ml 11/07/18 11/29/18 Unknown Rx NEBS] AtorvaSTATin [Lipitor] 20 mg PO QDAY #30 tablet 11/07/18 11/29/18 Unknown Rx Famotidine [Pepcid] 10 mg PO BID #60 tablet 11/07/18 11/29/18 Unknown Rx Ipratropium/Albuterol Sulfate 1 ampul IH Q6HR 30 Days ampul.neb 11/07/18 11/29/18 Unknown Rx [DUONEB *Not for PRN Use*] Tamsulosin [Flomax] 0.4 mg PO QHS #30 capsule 11/07/18 11/29/18 Unknown Rx Zidovudine 300 mg PO DAILY 11/09/18 11/29/18 Unknown History Insulin Regular, Human [HumuLIN R] 0 unit SQ AC #1 vial 11/12/18 11/29/18 Unknown Rx Active Medications: Generic Name Dose Route Start Last Admin Trade Name Freq PRN Reason Stop Dose Admin Abacavir Sulfate 600 mg 11/30/18 16:00 12/04/18 10:12 Ziagen PO 600 mg DAILY KEN Administration Albuterol 2.5 mg 11/30/18 00:17 Proventil IH Q4HRT PRN Shortness Of Breath Albuterol/Ipratropium 1 ampul 11/30/18 08:00 12/04/18 20:49 Duoneb *Not For Prn Use* IH 1 ampul QIDRT KEN Administration Lipase/Protease/Amylase 1 each 12/03/18 10:42 Pancredavis [place] 10,500 Unit FEEDTUBE PRN PRN For Clogged Feeding Tube Famotidine 10 mg 12/04/18 11:00 12/04/18 21:59 Pepcid PO 10 mg BID KEN Administration Fentanyl 50 mcg 12/04/18 17:28 12/05/18 03:01 Sublimaze IV 50 mcg Q2H PRN Administration INCREASED AGITATION Folic Acid 1 mg 12/04/18 12:00 12/04/18 12:26 Folvite PO 1 mg QDAY KEN Administration Cefepime HCl 2 gm in 100 mls @ 200 mls/hr 11/30/18 22:00 12/04/18 22:06 Maxipime/Ns 2 Gm/100 Ml IV 200 mls/hr Q24H KEN Administration Protocol Insulin Human Lispro 0 unit 11/30/18 07:00 12/05/18 06:05 Humalog SUB-Q 4 unit Q6HR KEN Administration Protocol Lamivudine 100 mg 12/02/18 10:00 12/04/18 10:13 Epivir PO 100 mg DAILY KEN Administration Metoclopramide HCl 5 mg 11/30/18 00:22 Reglan IV Q6H PRN Nausea And Vomiting Ondansetron HCl 4 mg 11/30/18 00:06 Zofran IV Q8H PRN Nausea And Vomiting Raltegravir 400 mg 11/30/18 16:00 12/04/18 22:00 Isentress PO 400 mg BID KEN Administration Simple Syrup 15 ml 12/03/18 10:42 Simple Syrup FEEDTUBE PRN PRN Hypoglycemia Simple Syrup 30 ml 12/03/18 10:42 Simple Syrup FEEDTUBE PRN PRN Hypoglycemia Sodium Bicarbonate 325 mg 12/03/18 10:42 Sodium Bicarbonate FEEDTUBE PRN PRN For Clogged Feeding Tube Sodium Chloride 10 ml 11/30/18 10:00 12/04/18 22:02 Sodium Chloride Flush Syringe 10 Ml IV 10 ml BID KEN Administration Sodium Chloride 10 ml 11/30/18 00:06 Sodium Chloride Flush Syringe 10 Ml IV PRN PRN LINE FLUSH Zidovudine 300 mg 11/30/18 16:00 12/04/18 22:11 Retrovir PO 300 mg BID KEN Administration
[2018-12-05] MEDS: DUONEB *Not for PRN Use IH SCH ×4 (07:49→20:33)
--- NOTE | 2018-12-05 09:17 | Progress Note ---
Assessment and Plan 1. Acute kidney injury: Vasomotor CONNIE superimposed on CKD in the setting of hypotension. Renal US negative for hydro. Continue IV fluids. Renal function is improving. Monitor renal function. Renal prognosis is guarded. Avoid nephrotoxic agents. Meds dosage based on GFR. 2. FEN: Hyperkalemia, improved. Hypernatremia, continue free water flushes. Monitor lytes. 3. Acute hypoxic respiratory failure: Intubated on vent. 4. Acute Metabolic Encephalopathy. 5. Elevated troponin. 6. Macrocytic anemia: POA. Low Folate, continue Folic acid. 7. Type 2 DM. Subjective Date of service: 12/05/18 Principal diagnosis: low plt - HIV Interval history: Patient was seen and examined at the bedside. Objective - Vital Signs Vital signs: Vital Signs - 12hr 12/04/18 12/04/18 12/04/18 21:21 22:00 23:00 Temperature Pulse Rate 113 H 116 H Pulse Rate [ 110 H Anterior Bilateral Throughout] Pulse Rate [ Apical] Respiratory 19 20 Rate Respiratory 19 Rate [Anterior Bilateral Throughout] Blood Pressure 123/77 128/79 O2 Sat by Pulse 97 97 Oximetry 12/04/18 12/04/18 12/05/18 23:12 23:54 00:00 Temperature 97.9 F Pulse Rate 115 H 113 H Pulse Rate [ Anterior Bilateral Throughout] Pulse Rate [ Apical] Respiratory 18 20 Rate Respiratory Rate [Anterior Bilateral Throughout] Blood Pressure 128/79 123/78 O2 Sat by Pulse 97 96 Oximetry 12/05/18 12/05/18 12/05/18 01:00 01:03 01:18 Temperature 97.9 F 97 F L Pulse Rate 114 H 115 H 115 H Pulse Rate [ Anterior Bilateral Throughout] Pulse Rate [ Apical] Respiratory 19 21 21 Rate Respiratory Rate [Anterior Bilateral Throughout] Blood Pressure 123/81 123/81 123/81 O2 Sat by Pulse 96 96 97 Oximetry 12/05/18 12/05/18 12/05/18 02:00 03:00 03:03 Temperature 97.1 F L Pulse Rate 113 H 114 H 113 H Pulse Rate [ Anterior Bilateral Throughout] Pulse Rate [ Apical] Respiratory 21 19 16 Rate Respiratory Rate [Anterior Bilateral Throughout] Blood Pressure 126/73 116/71 116/71 O2 Sat by Pulse 96 95 98 Oximetry 12/05/18 12/05/18 12/05/18 04:00 04:10 05:00 Temperature 98.9 F Pulse Rate 109 H 123 H 107 H Pulse Rate [ Anterior Bilateral Throughout] Pulse Rate [ Apical] Respiratory 38 H 19 Rate Respiratory Rate [Anterior Bilateral Throughout] Blood Pressure 113/63 113/63 108/64 O2 Sat by Pulse 98 98 96 Oximetry 12/05/18 12/05/18 12/05/18 06:00 07:00 07:42 Temperature Pulse Rate 112 H 114 H 110 H Pulse Rate [ Anterior Bilateral Throughout] Pulse Rate [ Apical] Respiratory 21 20 Rate Respiratory Rate [Anterior Bilateral Throughout] Blood Pressure 111/79 118/78 118/78 O2 Sat by Pulse 96 98 108 H Oximetry 12/05/18 12/05/18 12/05/18 07:49 08:00 09:02 Temperature 98.7 F Pulse Rate 109 H 111 H Pulse Rate [ 112 H Anterior Bilateral Throughout] Pulse Rate [ 104 H Apical] Respiratory 17 22 Rate Respiratory 21 Rate [Anterior Bilateral Throughout] Blood Pressure 122/75 O2 Sat by Pulse 92 97 Oximetry - General Appearance General appearance: well-developed, appears stated age, intubated, other (on vent) EENT: ATNC, PERRL Neck: supple Respiratory: Present: Clear to Ascultation Cardiology: regular, S1S2, no murmurs Gastrointestinal: normoactive bowel sounds, no tenderness, no distended, other (condom catheter) Integumentary: other (LE dressing noted) Neurologic: other (opens eyes) Musculoskeletal: other (no edema) - Lab 12/05/18 03:42 12/05/18 03:42 Most recent lab results ABG pH 7.392 pH Units (7.350-7.450) 12/05/18 04:14 ABG pCO2 34.3 mm Hg 12/05/18 04:14 ABG pO2 75.1 mm Hg (80.0-90.0) L 12/05/18 04:14 ABG HCO3 20.4 mmol/L (20.0-26.0) 12/05/18 04:14 ABG O2 Saturation 96.5 % (95.0-99.0) 12/05/18 04:14 Calcium 8.3 mg/dL (8.4-10.2) L 12/05/18 03:42 Phosphorus 2.80 mg/dL (2.5-4.5) 12/04/18 08:01 Magnesium 2.10 mg/dL (1.7-2.3) 12/04/18 08:01 173.8 mg/dL (0.1-20.0) H 11/30/18 14:20 18 mmol/L 11/30/18 14:20 Medications & Allergies - Medications Allergies/Adverse Reactions: Allergies No Known Allergies Allergy (Unverified 03/29/16 00:43) Home Medications: Home Medications Medication Instructions Recorded Confirmed Last Taken Type Aspirin [Aspirin BABY CHEW TAB] 81 mg PO QDAY #30 tab.chew 11/15/17 11/29/18 Unknown Rx Amlodipine Besylate 10 mg PO QDAY 05/21/18 11/29/18 Unknown History Carvedilol 6.25 mg PO BID 05/21/18 11/29/18 Unknown History Isentress 400 mg PO Q12HR 05/21/18 11/29/18 Unknown History Rosuvastatin Calcium 10 mg PO DAILY 05/21/18 11/29/18 Unknown History Memantine [Namenda] 5 mg PO QDAY #30 tablet 11/01/18 11/29/18 Unknown Rx Albuterol Sulfate [Albuterol 0.63% 0.63 mg IH TID PRN 30 Days ml 11/07/18 11/29/18 Unknown Rx NEBS] AtorvaSTATin [Lipitor] 20 mg PO QDAY #30 tablet 11/07/18 11/29/18 Unknown Rx Famotidine [Pepcid] 10 mg PO BID #60 tablet 11/07/18 11/29/18 Unknown Rx Ipratropium/Albuterol Sulfate 1 ampul IH Q6HR 30 Days ampul.neb 11/07/18 11/29/18 Unknown Rx [DUONEB *Not for PRN Use*] Tamsulosin [Flomax] 0.4 mg PO QHS #30 capsule 11/07/18 11/29/18 Unknown Rx Zidovudine 300 mg PO DAILY 11/09/18 11/29/18 Unknown History Insulin Regular, Human [HumuLIN R] 0 unit SQ AC #1 vial 11/12/18 11/29/18 Unknown Rx Active Medications: Generic Name Dose Route Start Last Admin Trade Name Freq PRN Reason Stop Dose Admin Abacavir Sulfate 600 mg 11/30/18 16:00 12/04/18 10:12 Ziagen PO 600 mg DAILY KEN Administration Albuterol 2.5 mg 11/30/18 00:17 Proventil IH Q4HRT PRN Shortness Of Breath Albuterol/Ipratropium 1 ampul 11/30/18 08:00 12/05/18 07:49 Duoneb *Not For Prn Use* IH 1 ampul QIDRT KEN Administration Lipase/Protease/Amylase 1 each 12/03/18 10:42 Pancreaze 10,500 Unit FEEDTUBE PRN PRN For Clogged Feeding Tube Famotidine 10 mg 12/04/18 11:00 12/04/18 21:59 Pepcid PO 10 mg BID KEN Administration Fentanyl 50 mcg 12/04/18 17:28 12/05/18 03:01 Sublimaze IV 50 mcg Q2H PRN Administration INCREASED AGITATION Folic Acid 1 mg 12/04/18 12:00 12/04/18 12:26 Folvite PO 1 mg QDAY KEN Administration Cefepime HCl 2 gm in 100 mls @ 200 mls/hr 11/30/18 22:00 12/04/18 22:06 Maxipime/Ns 2 Gm/100 Ml IV 200 mls/hr Q24H KEN Administration Protocol Insulin Human Lispro 0 unit 11/30/18 07:00 12/05/18 06:05 Humalog SUB-Q 4 unit Q6HR KEN Administration Protocol Lamivudine 100 mg 12/02/18 10:00 12/04/18 10:13 Epivir PO 100 mg DAILY KEN Administration Metoclopramide HCl 5 mg 11/30/18 00:22 Reglan IV Q6H PRN Nausea And Vomiting Ondansetron HCl 4 mg 11/30/18 00:06 Zofran IV Q8H PRN Nausea And Vomiting Raltegravir 400 mg 11/30/18 16:00 12/04/18 22:00 Isentress PO 400 mg BID KEN Administration Simple Syrup 15 ml 12/03/18 10:42 Simple Syrup FEEDTUBE PRN PRN Hypoglycemia Simple Syrup 30 ml 12/03/18 10:42 Simple Syrup FEEDTUBE PRN PRN Hypoglycemia Sodium Bicarbonate 325 mg 12/03/18 10:42 Sodium Bicarbonate FEEDTUBE PRN PRN For Clogged Feeding Tube Sodium Chloride 10 ml 11/30/18 10:00 12/04/18 22:02 Sodium Chloride Flush Syringe 10 Ml IV 10 ml BID KEN Administration Sodium Chloride 10 ml 11/30/18 00:06 Sodium Chloride Flush Syringe 10 Ml IV PRN PRN LINE FLUSH Zidovudine 300 mg 11/30/18 16:00 12/04/18 22:11 Retrovir PO 300 mg BID KEN Administration
[2018-12-05] MEDS: PEPCID PO SCH ×2 (10:09→22:05)
[2018-12-05] MEDS: ISENTRESS PO SCH ×2 (10:09→22:05)
[2018-12-05] MEDS: FOLVITE PO SCH (10:09)
[2018-12-05] MEDS: ZIAGEN PO SCH (10:10)
[2018-12-05] MEDS: RETROVIR PO SCH ×2 (10:10→22:05)
[2018-12-05] MEDS: EPIVIR PO SCH (10:11)
[2018-12-05] MEDS: SODIUM CHLORIDE FLUSH SYRINGE 10 ML IV SCH ×2 (10:12→22:06)
--- NOTE | 2018-12-05 11:49 | Progress Note ---
<MAGI LYMAN - Last Filed: 12/05/18 11:46> Assessment and Plan Altered mental status Thrombocytopenia Hypothermia Hx of CVA Non-specific troponin Cardiomyopathy, EF 15-20% Moderate to severe MR and TR Renal failure HIV Plan: Supportive cardiac management. Subjective Date of service: 12/05/18 Principal diagnosis: low plt - HIV Interval history: No cardiac events overnight. Objective Vital Signs Temp Pulse Pulse Pulse Resp Resp BP 12/05/18 11:31 108 H 103/62 12/05/18 11:00 113 H 31 H 103/62 12/05/18 10:17 98.7 F 12/05/18 10:00 116 H 21 107/72 12/05/18 09:02 111 H 22 12/05/18 08:00 98.7 F 109 H 104 H 17 122/75 12/05/18 07:49 112 H 21 12/05/18 07:42 110 H 118/78 12/05/18 07:00 114 H 20 118/78 12/05/18 06:00 112 H 21 111/79 12/05/18 05:00 107 H 19 108/64 12/05/18 04:10 123 H 113/63 12/05/18 04:00 98.9 F 109 H 38 H 113/63 12/05/18 03:03 97.1 F L 113 H 16 116/71 12/05/18 03:00 114 H 19 116/71 12/05/18 02:00 113 H 21 126/73 12/05/18 01:18 97 F L 115 H 21 123/81 12/05/18 01:03 97.9 F 115 H 21 123/81 12/05/18 01:00 114 H 19 123/81 12/05/18 00:00 113 H 20 123/78 12/04/18 23:54 97.9 F 12/04/18 23:12 115 H 18 128/79 12/04/18 23:00 116 H 20 128/79 12/04/18 22:00 113 H 19 123/77 12/04/18 21:21 110 H 19 12/04/18 21:00 110 H 19 122/80 12/04/18 20:00 97.8 F 113 H 21 115/80 12/04/18 19:00 111 H 17 116/78 12/04/18 18:00 109 H 16 109/69 12/04/18 17:26 99 H 21 12/04/18 17:24 112 H 124/81 12/04/18 17:00 118 H 30 H 124/81 12/04/18 16:00 97.5 F L 113 H 27 H 120/77 12/04/18 15:24 111 H 119/79 12/04/18 15:00 108 H 16 119/79 12/04/18 14:00 110 H 16 120/77 12/04/18 13:00 112 H 19 119/79 12/04/18 12:32 112 H 21 12/04/18 12:30 95 H 21 111/74 12/04/18 12:00 97.8 F 111 H 15 111/74 Pulse Ox 12/05/18 11:31 107 H 12/05/18 11:00 98 12/05/18 10:17 12/05/18 10:00 95 12/05/18 09:02 97 12/05/18 08:00 92 12/05/18 07:49 12/05/18 07:42 108 H 12/05/18 07:00 98 12/05/18 06:00 96 12/05/18 05:00 96 12/05/18 04:10 98 12/05/18 04:00 98 12/05/18 03:03 98 12/05/18 03:00 95 12/05/18 02:00 96 12/05/18 01:18 97 12/05/18 01:03 96 12/05/18 01:00 96 12/05/18 00:00 96 12/04/18 23:54 12/04/18 23:12 97 12/04/18 23:00 97 12/04/18 22:00 97 12/04/18 21:21 12/04/18 21:00 95 12/04/18 20:00 97 12/04/18 19:00 97 12/04/18 18:00 94 12/04/18 17:26 12/04/18 17:24 98 12/04/18 17:00 97 12/04/18 16:00 98 12/04/18 15:24 100 12/04/18 15:00 98 12/04/18 14:00 97 12/04/18 13:00 96 12/04/18 12:32 12/04/18 12:30 99 12/04/18 12:00 98 - Physical Examination General: Other (on the vent) Neck: Positive: trachea midline Cardiac: Positive: Reg Rate and Rhythm Neuro: Positive: Other (unresponsive, on the vent) Abdomen: Positive: Soft Skin: Positive: Clear Extremities: Absent: edema - Labs and Meds CBC 12/05/18 Range/Units 03:42 WBC 6.2 (4.5-11.0) K/mm3 RBC 2.89 L (3.65-5.03) M/mm3 Hgb 10.8 L (11.8-15.2) gm/dl Hct 32.2 L (35.5-45.6) % Plt Count 47 L (140-440) K/mm3 Lymph # 0.3 L (1.2-5.4) K/mm3 [place] # 0.3 (0.0-0.8) K/mm3 Eos # 0.0 (0.0-0.4) K/mm3 Baso # 0.0 (0.0-0.1) K/mm3 Comprehensive Metabolic Panel 12/05/18 Range/Units 03:42 Sodium 146 H (137-145) mmol/L Potassium 3.8 (3.6-5.0) mmol/L Chloride 113.3 H (98-107) mmol/L Carbon Dioxide 19 L (22-30) mmol/L BUN 55 H (9-20) mg/dL Creatinine 1.8 H (0.8-1.5) mg/dL Glucose 268 H (75-100) mg/dL Calcium 8.3 L (8.4-10.2) mg/dL - Imaging and Cardiology EKG: report reviewed <CHRISSY VARGAS - Last Filed: 12/06/18 22:09> Assessment and Plan I have seen and evaluated the patient and agree with the assessment and plan. continue goal directed medical therapy for severe cardiomyopathy. Objective Vital Signs Temp Pulse Pulse Pulse Resp Resp Resp 12/06/18 20:00 114 H 112 H 18 12/06/18 19:55 97.4 F L 12/06/18 19:49 116 H 24 12/06/18 19:22 118 H 12/06/18 19:00 112 H 13 12/06/18 18:00 114 H 12 12/06/18 17:00 112 H 15 12/06/18 16:00 97.5 F L 115 H 117 H 19 12/06/18 15:59 111 H 18 12/06/18 15:54 97.5 F L 12/06/18 15:50 84 19 12/06/18 15:00 120 H 19 12/06/18 14:00 115 H 13 12/06/18 13:48 113 H 20 12/06/18 13:00 116 H 15 12/06/18 12:00 96.6 F L 110 H 108 H 16 12/06/18 11:18 108 H 19 12/06/18 10:00 93 H 15 25 H 12/06/18 09:00 118 H 18 12/06/18 08:27 100 H 19 12/06/18 08:00 96.8 F L 93 H 115 H 19 12/06/18 07:00 113 H 21 12/06/18 06:00 112 H 22 12/06/18 05:00 95 H 17 12/06/18 04:34 113 H 12/06/18 04:00 96.9 F L 114 H 102 H 19 12/06/18 03:00 114 H 17 12/06/18 02:00 97 H 18 12/06/18 01:07 115 H 12/06/18 01:00 112 H 15 12/06/18 00:36 108 H 16 12/06/18 00:00 97.6 F 111 H 102 H 12 12/05/18 23:00 110 H 15 BP Pulse Ox 12/06/18 20:00 109/65 99 12/06/18 19:55 12/06/18 19:49 12/06/18 19:22 110/68 100 12/06/18 19:00 110/68 98 12/06/18 18:00 108/71 97 12/06/18 17:00 104/73 100 12/06/18 16:00 114/72 98 12/06/18 15:59 12/06/18 15:54 12/06/18 15:50 122/77 99 12/06/18 15:00 122/77 12/06/18 14:00 115/81 100 12/06/18 13:48 12/06/18 13:00 112/79 99 12/06/18 12:00 104/74 99 12/06/18 11:18 100 12/06/18 10:00 109/65 98 12/06/18 09:00 108/82 99 12/06/18 08:27 12/06/18 08:00 105/74 99 12/06/18 07:00 114/81 99 12/06/18 06:00 114/83 99 12/06/18 05:00 123/76 98 12/06/18 04:34 117/82 99 12/06/18 04:00 117/82 97 12/06/18 03:00 119/82 99 12/06/18 02:00 122/75 98 12/06/18 01:07 124/84 99 12/06/18 01:00 124/84 12/06/18 00:36 118/75 99 12/06/18 00:00 118/75 99 12/05/18 23:00 121/77 99 - Labs and Meds CBC 12/06/18 Range/Units 04:02 WBC 6.4 (4.5-11.0) K/mm3 RBC 2.88 L (3.65-5.03) M/mm3 Hgb 10.6 L (11.8-15.2) gm/dl Hct 32.8 L (35.5-45.6) % Plt Count 59 L (140-440) K/mm3 Lymph # 0.4 L (1.2-5.4) K/mm3 [place] # 0.3 (0.0-0.8) K/mm3 Eos # 0.0 (0.0-0.4) K/mm3 Baso # 0.0 (0.0-0.1) K/mm3 Comprehensive Metabolic Panel 12/06/18 Range/Units 04:02 Sodium 146 H (137-145) mmol/L Potassium 3.7 (3.6-5.0) mmol/L Chloride 111.9 H (98-107) mmol/L Carbon Dioxide 21 L (22-30) mmol/L BUN 52 H (9-20) mg/dL Creatinine 1.7 H (0.8-1.5) mg/dL Glucose 254 H (75-100) mg/dL Calcium 8.3 L (8.4-10.2) mg/dL
--- NOTE | 2018-12-05 13:27 | Progress Note ---
Assessment and Plan Imp: 1. Acute encephalopathy 2. SIRS 3. Acute respiratory failure, hypoxia 4. CONNIE 5. Volume depletion 6. Hypernatremia 7. HIV 8. Pancytopenia Rec: 1. ABX per ID; f/u cultures; await LP once platelets > 50K 2. EEG; consider MRI brain and neurology consult 3. Daily PSV trials; mentation precludes extubation; use Fentanyl sparingly for agitation that interferes with mechanical ventilation 4. IVFs per renal 5. Labs in AM 6. On ART 7. Folic acid supplementation 8. TFs, SCDs, Pepcid 9. Prognosis guarded to poor 10. No family present today 11. Complex decision-making Subjective Date of service: 12/05/18 Principal diagnosis: low plt - HIV Interval history: No events. Opens eyes. Follows basic commands, squeezing with hands. Unable to give history. Tolerating TFs. Required PRN Fentanyl as he was waking up and bucking the ventilator. Active Medications Abacavir Sulfate (Ziagen) 600 mg PO DAILY [facility] Last Admin: 12/05/18 10:10 Dose: 600 mg Documented by: Albuterol (Proventil) 2.5 mg IH Q4HRT PRN PRN Reason: Shortness Of Breath Albuterol/Ipratropium (Duoneb *Not For Prn Use*) 1 ampul IH QIDRT [facility] Last Admin: 12/05/18 11:57 Dose: 1 ampul Documented by: Lipase/Protease/Amylase (Harleen Manning 10,500 Unit) 1 each FEEDTUBE PRN PRN PRN Reason: For Clogged Feeding Tube Famotidine (Pepcid) 10 mg PO BID [facility] Last Admin: 12/05/18 10:09 Dose: 10 mg Documented by: Fentanyl (Sublimaze) 50 mcg IV Q2H PRN PRN Reason: INCREASED AGITATION Last Admin: 12/05/18 03:01 Dose: 50 mcg Documented by: Folic Acid (Folvite) 1 mg PO QDAY [facility] Last Admin: 12/05/18 10:09 Dose: 1 mg Documented by: Cefepime HCl (Maxipime/Ns 2 Gm/100 Ml) 2 gm in 100 mls @ 200 mls/hr IV Q24H [facility]; Protocol Last Admin: 12/04/18 22:06 Dose: 200 mls/hr Documented by: Insulin Human Lispro (Humalog) 0 unit SUB-Q Q6HR [facility]; Protocol Last Admin: 12/05/18 12:19 Dose: Not Given Documented by: Lamivudine (Epivir) 100 mg PO DAILY [facility] Last Admin: 12/05/18 10:11 Dose: 100 mg Documented by: Metoclopramide HCl (Reglan) 5 mg IV Q6H PRN PRN Reason: Nausea And Vomiting Ondansetron HCl (Zofran) 4 mg IV Q8H PRN PRN Reason: Nausea And Vomiting Raltegravir (Isentress) 400 mg PO BID [facility] Last Admin: 12/05/18 10:09 Dose: 400 mg Documented by: Simple Syrup (Simple Syrup) 15 ml FEEDTUBE PRN PRN PRN Reason: Hypoglycemia Simple Syrup (Simple Syrup) 30 ml FEEDTUBE PRN PRN PRN Reason: Hypoglycemia Sodium Bicarbonate (Sodium Bicarbonate) 325 mg FEEDTUBE PRN PRN PRN Reason: For Clogged Feeding Tube Sodium Chloride (Sodium Chloride Flush Syringe 10 Ml) 10 ml IV BID [facility] Last Admin: 12/05/18 10:12 Dose: 10 ml Documented by: Sodium Chloride (Sodium Chloride Flush Syringe 10 Ml) 10 ml IV PRN PRN PRN Reason: LINE FLUSH Zidovudine (Retrovir) 300 mg PO BID [facility] Last Admin: 12/05/18 10:10 Dose: 300 mg Documented by: Objective Vital Signs - 12hr 12/05/18 12/05/18 12/05/18 02:00 03:00 03:03 Temperature 97.1 F L Pulse Rate 113 H 114 H 113 H Pulse Rate [ Anterior Bilateral Throughout] Pulse Rate [ Apical] Respiratory 21 19 16 Rate Respiratory Rate [Anterior Bilateral Throughout] Blood Pressure 126/73 116/71 116/71 O2 Sat by Pulse 96 95 98 Oximetry 12/05/18 12/05/18 12/05/18 04:00 04:10 05:00 Temperature 98.9 F Pulse Rate 109 H 123 H 107 H Pulse Rate [ Anterior Bilateral Throughout] Pulse Rate [ Apical] Respiratory 38 H 19 Rate Respiratory Rate [Anterior Bilateral Throughout] Blood Pressure 113/63 113/63 108/64 O2 Sat by Pulse 98 98 96 Oximetry 12/05/18 12/05/18 12/05/18 06:00 07:00 07:42 Temperature Pulse Rate 112 H 114 H 110 H Pulse Rate [ Anterior Bilateral Throughout] Pulse Rate [ Apical] Respiratory 21 20 Rate Respiratory Rate [Anterior Bilateral Throughout] Blood Pressure 111/79 118/78 118/78 O2 Sat by Pulse 96 98 108 H Oximetry 12/05/18 12/05/18 12/05/18 07:49 08:00 09:02 Temperature 98.7 F Pulse Rate 109 H 111 H Pulse Rate [ 112 H Anterior Bilateral Throughout] Pulse Rate [ 104 H Apical] Respiratory 17 22 Rate Respiratory 21 Rate [Anterior Bilateral Throughout] Blood Pressure 122/75 O2 Sat by Pulse 92 97 Oximetry 12/05/18 12/05/18 12/05/18 10:00 10:17 11:00 Temperature 98.7 F Pulse Rate 116 H 113 H Pulse Rate [ Anterior Bilateral Throughout] Pulse Rate [ Apical] Respiratory 21 31 H Rate Respiratory Rate [Anterior Bilateral Throughout] Blood Pressure 107/72 103/62 O2 Sat by Pulse 95 98 Oximetry 12/05/18 12/05/18 12/05/18 11:31 11:57 12:00 Temperature 97.4 F L Pulse Rate 108 H 110 H Pulse Rate [ 111 H Anterior Bilateral Throughout] Pulse Rate [ 110 H Apical] Respiratory 19 Rate Respiratory 20 Rate [Anterior Bilateral Throughout] Blood Pressure 103/62 101/67 O2 Sat by Pulse 107 H 99 Oximetry 12/05/18 12:20 Temperature 97.4 F L Pulse Rate Pulse Rate [ Anterior Bilateral Throughout] Pulse Rate [ Apical] Respiratory Rate Respiratory Rate [Anterior Bilateral Throughout] Blood Pressure O2 Sat by Pulse Oximetry Constitutional: other (critically ill on vent, awake, eyes open) Eyes: non-icteric ENT: oropharynx moist, other (intubated) Neck: supple Effort: normal Ascultation: Bilateral: rhonchi Percussion: Bilateral: not dull Cardiovascular: other (tachy, RR; no mrg) Gastrointestinal: normoactive bowel sounds, soft, non-tender, non-distended Extremities: no cyanosis, no edema, pink and warm Neurologic: other (eyes open, squeezes with hands L > R, not wiggling toes/moving LEs, appears to understand) Psychiatric: other (unable to assess) CBC and BMP: 12/05/18 03:42 12/05/18 03:42 ABG, PT/INR, D-dimer: ABG POC ABG pH 7.437 (7.35-7.45) 12/04/18 03:48 ABG pH 7.392 pH Units (7.350-7.450) 12/05/18 04:14 ABG pCO2 34.3 mm Hg 12/05/18 04:14 POC ABG pO2 82 (80-105) 12/04/18 03:48 ABG pO2 75.1 mm Hg (80.0-90.0) L 12/05/18 04:14 POC ABG HCO3 19.3 (22-26 mml/L) 12/04/18 03:48 POC ABG Total CO2 20 (23-27mmol/L) 12/04/18 03:48 POC ABG O2 Sat 97 12/04/18 03:48 ABG O2 Saturation 96.5 % (95.0-99.0) 12/05/18 04:14 PT/INR, D-dimer PT 17.0 Sec. (12.2-14.9) H 12/04/18 08:01 INR 1.42 (0.87-1.13) H 12/04/18 08:01 Abnormal lab findings: Abnormal Labs 11/29/18 11/29/18 11/29/18 13:07 13:39 13:39 WBC 3.2 L RBC 2.76 L Hgb 10.4 L Hct 32.1 L MCV 116 H MCH 38 H RDW 17.5 H Plt Count 48 L Lymph % (Auto) 5.4 L Lymph # 0.2 L Seg Neutrophils % 89.5 H PT INR POC ABG pH POC ABG pO2 ABG pO2 ABG HCO3 ABG O2 Saturation ABG Base Excess ABG Hemoglobin VBG pH Oxyhemoglobin Sodium 153 H Potassium Chloride 113.3 H Carbon Dioxide 21 L BUN 55 H Creatinine 2.4 H Glucose 260 H POC Glucose 289 H Calcium Iron TIBC AST 68 H Alkaline Phosphatase 239 H Total Creatine Kinase 243 H Troponin T 0.054 H Total Protein 5.8 L Albumin 3.0 L LDL Cholesterol Direct 30 L HDL Cholesterol 63 H Vitamin B12 Folate Urine Creatinine Salicylates Acetaminophen 11/29/18 11/29/18 11/29/18 13:39 13:39 13:39 WBC RBC Hgb Hct MCV MCH RDW Plt Count Lymph % (Auto) Lymph # Seg Neutrophils % PT INR POC ABG pH POC ABG pO2 ABG pO2 ABG HCO3 ABG O2 Saturation ABG Base Excess ABG Hemoglobin VBG pH 7.186 L* Oxyhemoglobin Sodium Potassium Chloride Carbon Dioxide BUN Creatinine Glucose POC Glucose Calcium Iron TIBC AST Alkaline Phosphatase Total Creatine Kinase Troponin T Total Protein Albumin LDL Cholesterol Direct HDL Cholesterol Vitamin B12 Folate Urine Creatinine Salicylates < 0.3 L Acetaminophen < 5.0 L 11/29/18 11/29/18 11/30/18 14:24 21:17 05:50 WBC RBC Hgb Hct MCV MCH RDW Plt Count Lymph % (Auto) Lymph # Seg Neutrophils % PT INR POC ABG pH 7.319 L POC ABG pO2 126 H ABG pO2 203.3 H ABG HCO3 18.5 L ABG O2 Saturation 99.3 H ABG Base Excess -6.2 L ABG Hemoglobin 10.9 L VBG pH Oxyhemoglobin Sodium Potassium Chloride Carbon Dioxide BUN Creatinine Glucose POC Glucose 242 H Calcium Iron TIBC AST Alkaline Phosphatase Total Creatine Kinase Troponin T Total Protein Albumin LDL Cholesterol Direct HDL Cholesterol Vitamin B12 Folate Urine Creatinine Salicylates Acetaminophen 11/30/18 11/30/18 11/30/18 08:52 10:31 10:58 WBC RBC 3.05 L Hgb 11.5 L Hct 35.3 L MCV 116 H MCH 38 H RDW 17.2 H Plt Count 43 L Lymph % (Auto) Lymph # Seg Neutrophils % PT INR POC ABG pH POC ABG pO2 ABG pO2 ABG HCO3 ABG O2 Saturation ABG Base Excess ABG Hemoglobin VBG pH Oxyhemoglobin Sodium 153 H Potassium Chloride 117.2 H Carbon Dioxide 18 L BUN 60 H Creatinine 2.8 H Glucose 216 H POC Glucose 234 H Calcium 8.2 L Iron TIBC AST Alkaline Phosphatase Total Creatine Kinase Troponin T Total Protein Albumin LDL Cholesterol Direct HDL Cholesterol Vitamin B12 Folate Urine Creatinine Salicylates Acetaminophen 11/30/18 11/30/18 11/30/18 12:40 14:20 17:35 WBC RBC Hgb Hct MCV MCH RDW Plt Count Lymph % (Auto) Lymph # Seg Neutrophils % PT INR POC ABG pH POC ABG pO2 ABG pO2 ABG HCO3 ABG O2 Saturation ABG Base Excess ABG Hemoglobin VBG pH Oxyhemoglobin Sodium Potassium Chloride Carbon Dioxide BUN Creatinine Glucose POC Glucose 235 H 182 H Calcium Iron TIBC AST Alkaline Phosphatase Total Creatine Kinase Troponin T Total Protein Albumin LDL Cholesterol Direct HDL Cholesterol Vitamin B12 Folate Urine Creatinine 173.8 H Salicylates Acetaminophen 11/30/18 12/01/18 12/01/18 23:53 04:08 04:08 WBC RBC 3.11 L Hgb 11.7 L Hct 35.3 L MCV 113 H MCH 38 H RDW 16.9 H Plt Count 43 L Lymph % (Auto) Lymph # Seg Neutrophils % PT INR POC ABG pH POC ABG pO2 ABG pO2 ABG HCO3 ABG O2 Saturation ABG Base Excess ABG Hemoglobin VBG pH Oxyhemoglobin Sodium 150 H Potassium Chloride 114.6 H Carbon Dioxide 16 L BUN 67 H Creatinine 2.9 H Glucose 193 H POC Glucose 149 H Calcium 8.2 L Iron TIBC AST Alkaline Phosphatase Total Creatine Kinase Troponin T Total Protein Albumin LDL Cholesterol Direct HDL Cholesterol Vitamin B12 Folate Urine Creatinine Salicylates Acetaminophen 12/01/18 12/01/18 12/01/18 04:55 05:11 13:33 WBC RBC Hgb Hct MCV MCH RDW Plt Count Lymph % (Auto) Lymph # Seg Neutrophils % PT INR POC ABG pH POC ABG pO2 ABG pO2 91.9 H ABG HCO3 17.7 L ABG O2 Saturation ABG Base Excess -6.1 L ABG Hemoglobin 11.5 L VBG pH Oxyhemoglobin Sodium Potassium Chloride Carbon Dioxide BUN Creatinine Glucose POC Glucose 236 H 255 H Calcium Iron TIBC AST Alkaline Phosphatase Total Creatine Kinase Troponin T Total Protein Albumin LDL Cholesterol Direct HDL Cholesterol Vitamin B12 Folate Urine Creatinine Salicylates Acetaminophen 12/01/18 12/02/18 12/02/18 18:20 00:17 03:40 WBC RBC Hgb Hct MCV MCH RDW Plt Count Lymph % (Auto) Lymph # Seg Neutrophils % PT INR POC ABG pH POC ABG pO2 ABG pO2 78.0 L ABG HCO3 16.4 L ABG O2 Saturation ABG Base Excess -6.2 L ABG Hemoglobin 11.4 L VBG pH Oxyhemoglobin 94.5 L Sodium Potassium Chloride Carbon Dioxide BUN Creatinine Glucose POC Glucose 177 H 192 H Calcium Iron TIBC AST Alkaline Phosphatase Total Creatine Kinase Troponin T Total Protein Albumin LDL Cholesterol Direct HDL Cholesterol Vitamin B12 Folate Urine Creatinine Salicylates Acetaminophen 12/02/18 12/02/18 12/02/18 05:11 05:26 07:50 WBC 4.1 L RBC 3.01 L Hgb 11.4 L Hct 34.1 L MCV 113 H MCH 38 H RDW 17.3 H Plt Count 40 L Lymph % (Auto) Lymph # Seg Neutrophils % PT INR POC ABG pH POC ABG pO2 ABG pO2 ABG HCO3 ABG O2 Saturation ABG Base Excess ABG Hemoglobin VBG pH Oxyhemoglobin Sodium Potassium 5.6 H D Chloride 113.0 H Carbon Dioxide 16 L BUN 73 H Creatinine 2.8 H Glucose 202 H POC Glucose 179 H Calcium Iron TIBC AST Alkaline Phosphatase Total Creatine Kinase Troponin T Total Protein Albumin LDL Cholesterol Direct HDL Cholesterol Vitamin B12 Folate Urine Creatinine Salicylates Acetaminophen 12/02/18 12/02/18 12/02/18 11:57 18:40 18:43 WBC RBC Hgb Hct MCV MCH RDW Plt Count Lymph % (Auto) Lymph # Seg Neutrophils % PT INR POC ABG pH POC ABG pO2 ABG pO2 ABG HCO3 ABG O2 Saturation ABG Base Excess ABG Hemoglobin VBG pH Oxyhemoglobin Sodium Potassium Chloride Carbon Dioxide BUN Creatinine Glucose POC Glucose 140 H 286 H 261 H Calcium Iron TIBC AST Alkaline Phosphatase Total Creatine Kinase Troponin T Total Protein Albumin LDL Cholesterol Direct HDL Cholesterol Vitamin B12 Folate Urine Creatinine Salicylates Acetaminophen 12/02/18 12/03/18 12/03/18 23:55 04:06 04:06 WBC 4.4 L RBC 2.96 L Hgb 11.3 L Hct 33.1 L MCV 112 H MCH 38 H RDW 16.7 H Plt Count 38 L Lymph % (Auto) Lymph # Seg Neutrophils % PT INR POC ABG pH POC ABG pO2 ABG pO2 ABG HCO3 ABG O2 Saturation ABG Base Excess ABG Hemoglobin VBG pH Oxyhemoglobin Sodium 146 H Potassium Chloride 112.5 H Carbon Dioxide 18 L BUN 71 H Creatinine 2.5 H Glucose 258 H POC Glucose 303 H Calcium 8.3 L Iron TIBC AST Alkaline Phosphatase Total Creatine Kinase Troponin T Total Protein Albumin LDL Cholesterol Direct HDL Cholesterol Vitamin B12 Folate Urine Creatinine Salicylates Acetaminophen 12/03/18 12/03/18 12/03/18 05:17 11:25 17:46 WBC RBC Hgb Hct MCV MCH RDW Plt Count Lymph % (Auto) Lymph # Seg Neutrophils % PT INR POC ABG pH POC ABG pO2 ABG pO2 ABG HCO3 ABG O2 Saturation ABG Base Excess ABG Hemoglobin VBG pH Oxyhemoglobin Sodium Potassium Chloride Carbon Dioxide BUN Creatinine Glucose POC Glucose 328 H 288 H 202 H Calcium Iron TIBC AST Alkaline Phosphatase Total Creatine Kinase Troponin T Total Protein Albumin LDL Cholesterol Direct HDL Cholesterol Vitamin B12 Folate Urine Creatinine Salicylates Acetaminophen 12/04/18 12/04/18 12/04/18 01:15 05:47 08:01 WBC RBC 3.11 L Hgb 11.7 L Hct MCV 115 H MCH 38 H RDW 17.6 H Plt Count 35 L Lymph % (Auto) 6.9 L Lymph # 0.3 L Seg Neutrophils % 87.7 H PT INR POC ABG pH POC ABG pO2 ABG pO2 ABG HCO3 ABG O2 Saturation ABG Base Excess ABG Hemoglobin VBG pH Oxyhemoglobin Sodium Potassium Chloride Carbon Dioxide BUN Creatinine Glucose POC Glucose 282 H 265 H Calcium Iron TIBC AST Alkaline Phosphatase Total Creatine Kinase Troponin T Total Protein Albumin LDL Cholesterol Direct HDL Cholesterol Vitamin B12 Folate Urine Creatinine Salicylates Acetaminophen 12/04/18 12/04/18 12/04/18 08:01 08:01 08:01 WBC RBC Hgb Hct MCV MCH RDW Plt Count Lymph % (Auto) Lymph # Seg Neutrophils % PT 17.0 H INR 1.42 H POC ABG pH POC ABG pO2 ABG pO2 ABG HCO3 ABG O2 Saturation ABG Base Excess ABG Hemoglobin VBG pH Oxyhemoglobin Sodium Potassium Chloride 114.6 H Carbon Dioxide 20 L BUN 62 H Creatinine 2.0 H Glucose 266 H POC Glucose Calcium 8.3 L Iron 20 L TIBC 168 L AST Alkaline Phosphatase 292 H Total Creatine Kinase Troponin T Total Protein 5.2 L Albumin 2.1 L LDL Cholesterol Direct HDL Cholesterol Vitamin B12 Folate 7.24 L Urine Creatinine Salicylates Acetaminophen 12/04/18 12/04/18 12/04/18 11:59 17:59 22:59 WBC RBC Hgb Hct MCV MCH RDW Plt Count Lymph % (Auto) Lymph # Seg Neutrophils % PT INR POC ABG pH POC ABG pO2 ABG pO2 ABG HCO3 ABG O2 Saturation ABG Base Excess ABG Hemoglobin VBG pH Oxyhemoglobin Sodium Potassium Chloride Carbon Dioxide BUN Creatinine Glucose POC Glucose 267 H 226 H 341 H Calcium Iron TIBC AST Alkaline Phosphatase Total Creatine Kinase Troponin T Total Protein Albumin LDL Cholesterol Direct HDL Cholesterol Vitamin B12 Folate Urine Creatinine Salicylates Acetaminophen 12/05/18 12/05/18 12/05/18 03:42 03:42 03:42 WBC RBC 2.89 L Hgb 10.8 L Hct 32.2 L MCV 111 H MCH 37 H RDW 16.8 H Plt Count 47 L Lymph % (Auto) 5.5 L Lymph # 0.3 L Seg Neutrophils % 89.9 H PT INR POC ABG pH POC ABG pO2 ABG pO2 ABG HCO3 ABG O2 Saturation ABG Base Excess ABG Hemoglobin VBG pH Oxyhemoglobin Sodium 146 H Potassium Chloride 113.3 H Carbon Dioxide 19 L BUN 55 H Creatinine 1.8 H Glucose 268 H POC Glucose Calcium 8.3 L Iron TIBC AST Alkaline Phosphatase Total Creatine Kinase Troponin T Total Protein Albumin LDL Cholesterol Direct HDL Cholesterol Vitamin B12 1798 H Folate Urine Creatinine Salicylates Acetaminophen 12/05/18 04:14 WBC RBC Hgb Hct MCV MCH RDW Plt Count Lymph % (Auto) Lymph # Seg Neutrophils % PT INR POC ABG pH POC ABG pO2 ABG pO2 75.1 L ABG HCO3 ABG O2 Saturation ABG Base Excess -4.0 L ABG Hemoglobin 8.2 L VBG pH Oxyhemoglobin 94.0 L Sodium Potassium Chloride Carbon Dioxide BUN Creatinine Glucose POC Glucose Calcium Iron TIBC AST Alkaline Phosphatase Total Creatine Kinase Troponin T Total Protein Albumin LDL Cholesterol Direct HDL Cholesterol Vitamin B12 Folate Urine Creatinine Salicylates Acetaminophen Chest x-ray: report reviewed, image reviewed
--- NOTE | 2018-12-05 15:30 | Progress Note ---
Assessment and Plan Cultures: 11/29 BCx - NGTD 11/29 UCx - NGTD serum Crypto Ag negative Assessment: : 73 yo M PMHx HIV, HTN, HLD admitted with AMS 1. SIRS possible sepsis - hypothermia and pancytopenia on admission and negative blood cultures. Unclear source. Hypothermia resolved. Etiology ?hormonal (thyroid/[place]'s) v/s opportunistic fungi like histoplasma seen in HIV patients causing [place]'s (however last reported CD4 250) 2. Altered mental status - unclear?. HIV related? some better. Possibly due to ongoing microvascular disease with ischemia. Able to passively move neck on exam, but difficult to assess for meningismus. Continue empiric antibiotics for now with cefepime 3. HIV - Well controlled at recent visit. Accidentally ordered qualitative VL last time, but genotype was unable to be performed thus meaning the VL was at least under 1000, and most likely undetectable. CD4 ~ 250. Continue home regimen of raltegravir, lamivudine, abacavir, zidovudine. 4. CONNIE -better 5. Pancytopenia mainly Thrombocytopenia: ? HIV, worsening 6. Acute respiratory failure: intubated for airway protection. Recommendations: - continue cefepime 2g q12h D5 - obtain lumbar puncture ordered yesterday, CSF for cell count, diff, culture, glucose, protein, CMV DNA PCR, HSV DNA PCR, JAREK DNA PCR, VDRL. Able to obtain when platelets >50k - obtain neuro consult, EEG - Brain MRI unable to obtain during weekend - check am cortisol - ordered - check viral hepatitis panel - negative - check Histoplasma urine antigen - ordered - continue ART - abacavir, raltegravir, zidovudine. Renally dosed lamivudine to 100mg daily. Will follow. Dr Quinton cantu tomorrow. Belkis Alcantara MD [facility] ([facility] M: [phone] O: [phone] F: [phone] Subjective Principal diagnosis: low plt - HIV Interval history: minimal response. Afebrile, normal white count. Objective - Exam Narrative Exam: Physical Exam: Constitutional: non-responsive. Head, Ears, Nose: Normocephalic, atraumatic. External ears, nose normal Eyes: Conjunctivae/corneas clear. No icterus. No ptosis. Neck: Supple, no meningeal signs Oral: intubated Cardiovascular: S1, S2 normal. Respiratory: Good air entry, clear to auscultation bilaterally GI: Soft, non-tender; bowel sounds normal. No peritoneal signs. Musculoskeletal: No pedal edema, no cyanosis. Skin: No rash or abscess Hem/Lymphatic: No palpable cervical or supraclavicular nodes. No lymphangitis Psych: Mood ok. Affect normal Neurological: Intubated, non-responsive - Constitutional Vitals: Vital Signs Temp Pulse Resp BP Pulse Ox 97.4 F L 114 H 24 103/76 98 12/05/18 12:20 12/05/18 13:00 12/05/18 13:00 12/05/18 13:00 12/05/18 13:00 Temperature -Last 24 Hours Temperature 97.4 F Temperature 97.4 F Temperature 98.7 F Temperature 98.7 F Temperature 98.9 F Temperature 97.1 F Temperature 97.1 F Temperature 97 F Temperature 97.9 F Temperature 97.9 F Temperature 97.8 F Temperature 97.5 F Temperature 97.5 F - Labs CBC & Chem 7: 12/05/18 03:42 12/05/18 03:42 Labs: Abnormal lab results 12/04/18 12/04/18 12/05/18 Range/Units 17:59 22:59 03:42 RBC (3.65-5.03) M/mm3 Hgb (11.8-15.2) gm/dl Hct (35.5-45.6) % MCV (84-94) fl MCH (28-32) pg RDW (13.2-15.2) % Plt Count (140-440) K/mm3 Lymph % (Auto) (13.4-35.0) % Lymph # (1.2-5.4) K/mm3 Seg Neutrophils % (40.0-70.0) % ABG pO2 (80.0-90.0) mm Hg ABG Base Excess (-2.0-3.0) mmol/L ABG Hemoglobin (14.0-18.0) gm/dl Oxyhemoglobin (95.0-99.0) % Sodium 146 H (137-145) mmol/L Chloride 113.3 H (98-107) mmol/L Carbon Dioxide 19 L (22-30) mmol/L BUN 55 H (9-20) mg/dL Creatinine 1.8 H (0.8-1.5) mg/dL Glucose 268 H (75-100) mg/dL POC Glucose 226 H 341 H (70-105) Calcium 8.3 L (8.4-10.2) mg/dL Vitamin B12 (211-911) pg/mL 12/05/18 12/05/18 12/05/18 Range/Units 03:42 03:42 04:14 RBC 2.89 L (3.65-5.03) M/mm3 Hgb 10.8 L (11.8-15.2) gm/dl Hct 32.2 L (35.5-45.6) % MCV 111 H (84-94) fl MCH 37 H (28-32) pg RDW 16.8 H (13.2-15.2) % Plt Count 47 L (140-440) K/mm3 Lymph % (Auto) 5.5 L (13.4-35.0) % Lymph # 0.3 L (1.2-5.4) K/mm3 Seg Neutrophils % 89.9 H (40.0-70.0) % ABG pO2 75.1 L (80.0-90.0) mm Hg ABG Base Excess -4.0 L (-2.0-3.0) mmol/L ABG Hemoglobin 8.2 L (14.0-18.0) gm/dl Oxyhemoglobin 94.0 L (95.0-99.0) % Sodium (137-145) mmol/L Chloride (98-107) mmol/L Carbon Dioxide (22-30) mmol/L BUN (9-20) mg/dL Creatinine (0.8-1.5) mg/dL Glucose (75-100) mg/dL POC Glucose (70-105) Calcium (8.4-10.2) mg/dL Vitamin B12 1798 H (211-911) pg/mL
[2018-12-05] MEDS ORDERED: EPIVIR PO SCH (17:32)
--- NOTE | 2018-12-05 17:56 | Progress Note ---
Assessment and Plan Assessment and plan: Patient is a 73 yo man from [facility] with severe end-stage co-morbities including HIV, type 2 DM, NSTEMI type 2, hyperkalemia, hypernatremia, malnutrition, severe CHF with EF 15-20%, Dementia, CVA with SAH after fall here at [facility] on 05/22/18 with transferred to [facility], recurrent bouts of hypog lycmia, who had been admitted 3 times this month of November 2018. Initially he was admitted on 10/24/18 to 11/01/18 due to AMS, new CVA was ruled out by MRI but did show chronic infarcts in the right parietal lobe and the right MCA [employer] watershed territory and chronic lacunar infarct in the right paracentral [place] area. It was recommended that patient go to SNF but refused and took him home. He returned 2 days later due to hypoglycemia, it appears he wasn't eating enough but still taking DM medications. He was then discharged to [facility] on 11/07/2018. He returned 2 days later on 11/09/2018 due to hypoxemia and hypoglycemia again. He was discharged back to the [place] . Now he returns to the ED on 11/29/18 with severe worsening AMS GCS of 5 requiring Intubation. I do not know why he is on Fentanyl drip. * CT head without contrast Impression: There is continued extensive microvascula r angiopathy as detailed...without CT evidence of acute ICH. * pCXR Impression: Minimal interstitial edema, ngt in stomach, needs advancing 5-10 cm, borderline cardiomegaly, no consolidation or effusion * Abd XRAY after NGT advancement, shows it is in the correct position Acute Metabolic Encephalopathy, poa, work up in progress: ? secondary to HIV, consulted Neurology, input noted, MRI pending Acute respiratory failure >96 hours poa s/p ETT placement: consulted Pulmonology, input noted SIRS with possible Sepsis: Continue cefepime, ID following, awaiting cultures. LP not done due to thrombocytopenia Acute on chronic systolic heart failure (congestive heart failure) 15-20%, mild: treat medically, bp borderline too low for IV lasix, consulted Cardiology, input noted HIV (human immunodeficiency virus infection): ID consulted, input noted Acute renal insufficiency, ATN + vasomotor nephropathy, poa: monitor uop q shift, nephrology consulted, urine electrolytes, strict I/O, monitor uop q shift, monitor fluid balance, monitor serum creatnine, Type 2 DM on Insulin with recurrent hypoglycemia: treat with SSI, ADA Severe malnutrition, as evidence by decubitus ulcers, inadequate nutritional i ntake, and muscle wasting. poa: consult Youth Officer Decubitus ulcers at least stage 3: Consult wound care Hypernatremia: Likely from dehydration, treat with free water, monitor bmp closely DVT prophylaxis: SCD to BLE while in bed, on d/c a/c Severe pancytopenia, plt count only 48: consulted Heme/onc Thrombocytopenia: Give a unit a plt Disposition: continue inpatient ICU care SIRS possible sepsis, poa - ID is following, negative blood cultures. Unclear source. CC-35 mins History Interval history: Patient was seen and examined. Follow-up on current diagnosis of AMS. No overnight events reported to me. Imaging, nursing note, chart, labs and old chart reviewed. No family at bedside, patient opens eyes at verbal stimuli but not following any instruction, Hospitalist Physical - Physical exam Narrative exam: Gen: cachetic, intubated and sedated on fentanyl drip HEENT: NCAT, pupils pinpoint Neck: supple, no adenopathy, no thyromegaly, CVS/Heart: RRR, normal S1S2, pulses present bilaterally Chest/Lungs: diminished BS, Symmetrical chest expansion, good air entry bilaterally GI/Abdomen: soft, NTND, good bowel sounds, no guarding or rebound /Bladder: no suprapubic tenderness, no CVA or paraspinal tenderness Extermity/Skin: ble edema MSK: intubated and sedated Neuro: intubated and sedated Psych: intubated and sedated - Constitutional Vitals: Temp Pulse Resp BP Pulse Ox 98.1 F 87 16 114/68 99 12/05/18 16:00 12/05/18 17:00 12/05/18 17:00 12/05/18 17:00 12/05/18 17:00 General appearance: Present: no acute distress, other (intubated on cpap) Results - Labs CBC & Chem 7: 12/05/18 03:42 12/05/18 03:42 Labs: Laboratory Last Values WBC 6.2 K/mm3 (4.5-11.0) 12/05/18 03:42 RBC 2.89 M/mm3 (3.65-5.03) L 12/05/18 03:42 Hgb 10.8 gm/dl (11.8-15.2) L 12/05/18 03:42 Hct 32.2 % (35.5-45.6) L 12/05/18 03:42 MCV 111 fl (84-94) H 12/05/18 03:42 MCH 37 pg (28-32) H 12/05/18 03:42 MCHC 34 % (32-34) 12/05/18 03:42 RDW 16.8 % (13.2-15.2) H 12/05/18 03:42 Plt Count 47 K/mm3 (140-440) L 12/05/18 03:42 Lymph % (Auto) 5.5 % (13.4-35.0) L 12/05/18 03:42 Burt % (Auto) 4.4 % (0.0-7.3) 12/05/18 03:42 Eos % (Auto) 0.1 % (0.0-4.3) 12/05/18 03:42 Baso % (Auto) 0.1 % (0.0-1.8) 12/05/18 03:42 Lymph # 0.3 K/mm3 (1.2-5.4) L 12/05/18 03:42 Burt # 0.3 K/mm3 (0.0-0.8) 12/05/18 03:42 Eos # 0.0 K/mm3 (0.0-0.4) 12/05/18 03:42 Baso # 0.0 K/mm3 (0.0-0.1) 12/05/18 03:42 Seg Neutrophils % 89.9 % (40.0-70.0) H 12/05/18 03:42 Seg Neutrophils # 5.5 K/mm3 (1.8-7.7) 12/05/18 03:42 PT 17.0 Sec. (12.2-14.9) H 12/04/18 08:01 INR 1.42 (0.87-1.13) H 12/04/18 08:01 APTT 36.4 Sec. (24.2-36.6) 12/04/18 08:01 POC ABG pH 7.437 (7.35-7.45) 12/04/18 03:48 ABG pH 7.392 pH Units (7.350-7.450) 12/05/18 04:14 POC ABG pCO2 39.5 (35-45) 11/29/18 14:24 ABG pCO2 34.3 mm Hg 12/05/18 04:14 POC ABG pO2 82 (80-105) 12/04/18 03:48 ABG pO2 75.1 mm Hg (80.0-90.0) L 12/05/18 04:14 POC ABG HCO3 19.3 (22-26 mml/L) 12/04/18 03:48 ABG HCO3 20.4 mmol/L (20.0-26.0) 12/05/18 04:14 POC ABG Total CO2 20 (23-27mmol/L) 12/04/18 03:48 POC ABG O2 Sat 97 12/04/18 03:48 ABG O2 Saturation 96.5 % (95.0-99.0) 12/05/18 04:14 ABG O2 Content 11.0 (0.0-44) 12/05/18 04:14 POC ABG Base Excess -5 ((-2) - (+3)mmol/L) 12/04/18 03:48 ABG Base Excess -4.0 mmol/L (-2.0-3.0) L 12/05/18 04:14 ABG Hemoglobin 8.2 gm/dl (14.0-18.0) L 12/05/18 04:14 ABG Carboxyhemoglobin 2.1 % (0.0-5.0) 12/05/18 04:14 ABG Methemoglobin 0.5 % (0.0-1.5) 12/05/18 04:14 VBG pH 7.186 (7.320-7.420) L* 11/29/18 13:39 94.0 % (95.0-99.0) L 12/05/18 04:14 25 % 12/05/18 04:14 Sodium 146 mmol/L (137-145) H 12/05/18 03:42 Potassium 3.8 mmol/L (3.6-5.0) 12/05/18 03:42 Chloride 113.3 mmol/L (98-107) H 12/05/18 03:42 Carbon Dioxide 19 mmol/L (22-30) L 12/05/18 03:42 18 mmol/L 12/05/18 03:42 BUN 55 mg/dL (9-20) H 12/05/18 03:42 1.8 mg/dL (0.8-1.5) H 12/05/18 03:42 Estimated GFR 45 ml/min 12/05/18 03:42 31 % 12/05/18 03:42 Glucose 268 mg/dL (75-100) H 12/05/18 03:42 POC Glucose 95 (70-105) 12/05/18 11:44 Lactic Acid 1.30 mmol/L (0.7-2.0) 11/29/18 14:42 Calcium 8.3 mg/dL (8.4-10.2) L 12/05/18 03:42 Phosphorus 2.80 mg/dL (2.5-4.5) 12/04/18 08:01 Magnesium 2.10 mg/dL (1.7-2.3) 12/04/18 08:01 Iron 20 ug/dL (49-181) L 12/04/18 08:01 TIBC 168 mcg/dL (250-450) L 12/04/18 08:01 174.3 ng/mL (13.0-400.0) 12/04/18 08:01 0.50 mg/dL (0.1-1.2) 12/04/18 08:01 AST 24 units/L (5-40) 12/04/18 08:01 ALT 32 units/L (7-56) 12/04/18 08:01 292 units/L (35-129) H 12/04/18 08:01 28.0 umol/L (25-60) 11/29/18 13:39 243 units/L (55-170) H 11/29/18 13:39 0.054 ng/mL (0.00-0.029) H 11/29/18 13:39 5.2 g/dL (6.3-8.2) L 12/04/18 08:01 2.1 g/dL (3.9-5) L 12/04/18 08:01 0.7 % 12/04/18 08:01 Triglycerides 68 mg/dL (2-149) 11/29/18 13:39 Cholesterol 95 mg/dL (50-199) 11/29/18 13:39 30 mg/dL (50-130) L 11/29/18 13:39 63 mg/dL (40-59) H 11/29/18 13:39 1.50 % 11/29/18 13:39 Vitamin B12 1798 pg/mL (211-911) H 12/05/18 03:42 7.24 ng/mL (7.3-26.0) L 12/04/18 08:01 14.8 mcg/dL () 12/01/18 09:08 Yellow (Yellow) 11/29/18 13:16 Clear (Clear) 11/29/18 13:16 5.0 (5.0-7.0) 11/29/18 13:16 Ur Specific [place] 1.018 (1.003-1.030) 11/29/18 13:16 30 mg/dl mg/dL (Negative) 11/29/18 13:16 Neg mg/dL (Negative) 11/29/18 13:16 Neg mg/dL (Negative) 11/29/18 13:16 Neg (Negative) 11/29/18 13:16 Neg (Negative) 11/29/18 13:16 Neg (Negative) 11/29/18 13:16 < 2.0 mg/dL (<2.0) 11/29/18 13:16 Ur Leukocyte Esterase Neg (Negative) 11/29/18 13:16 5.0 /HPF (0.0-6.0) 11/29/18 13:16 2.0 /HPF (0.0-6.0) 11/29/18 13:16 1+ /HPF (Negative) 11/29/18 13:16 173.8 mg/dL (0.1-20.0) H 11/30/18 14:20 18 mmol/L 11/30/18 14:20 Random Vancomycin 10.7 ug/mL (0-40.0) 12/01/18 13:20 Salicylates < 0.3 mg/dL (2.8-20.0) L 11/29/18 13:39 Presumptive negative 11/29/18 13:16 Presumptive negative 11/29/18 13:16 Acetaminophen < 5.0 ug/mL (10.0-30.0) L 11/29/18 13:39 Ur Barbiturates Screen Presumptive negative 11/29/18 13:16 Ur Phencyclidine Scrn Presumptive negative 11/29/18 13:16 Ur Amphetamines Screen Presumptive negative 11/29/18 13:16 U Benzodiazepines Scrn Presumptive negative 11/29/18 13:16 Presumptive negative 11/29/18 13:16 U Marijuana (THC) Screen Presumptive negative 11/29/18 13:16 Disclamer 11/29/18 13:16 Non-reactive (NonReactive) 12/01/18 04:08 RPR Nonreactive (Nonreactive) 12/02/18 17:04 Hepatitis A IgM Ab Non-reactive (NonReactive) 12/02/18 17:04 Hep Bs Antigen Non-reactive (Negative) 12/02/18 17:04 Hep B Core IgM Ab Non-reactive (NonReactive) 12/02/18 17:04 Non-reactive (NonReactive) 12/02/18 17:04 Blood Type B POSITIVE 12/04/18 Unknown Antibody Screen Negative 11/29/18 13:39 Active Medications - Current Medications Current Medications: Generic Name Dose Route Start Last Admin Trade Name Freq PRN Reason Stop Dose Admin Abacavir Sulfate 600 mg 11/30/18 16:00 12/05/18 10:10 Ziagen PO 600 mg DAILY KEN Administration Albuterol 2.5 mg 11/30/18 00:17 Proventil IH Q4HRT PRN Shortness Of Breath Albuterol/Ipratropium 1 ampul 11/30/18 08:00 12/05/18 16:29 Duoneb *Not For Prn Use* IH 1 ampul QIDRT KEN Administration Lipase/Protease/Amylase 1 each 12/03/18 10:42 Pancredavis Manning 10,500 Unit FEEDTUBE PRN PRN For Clogged Feeding Tube Famotidine 10 mg 12/04/18 11:00 12/05/18 10:09 Pepcid PO 10 mg BID KEN Administration Fentanyl 50 mcg 12/04/18 17:28 12/05/18 03:01 Sublimaze IV 50 mcg Q2H PRN Administration INCREASED AGITATION Folic Acid 1 mg 12/04/18 12:00 12/05/18 10:09 Folvite PO 1 mg QDAY KEN Administration Cefepime HCl 2 gm in 100 mls @ 200 mls/hr 11/30/18 22:00 12/04/18 22:06 Maxipime/Ns 2 Gm/100 Ml IV 200 mls/hr Q24H KEN Administration Protocol Insulin Human Lispro 0 unit 11/30/18 07:00 12/05/18 12:19 Humalog SUB-Q Not Given Q6HR [facility] Protocol Lamivudine 150 mg 12/06/18 10:00 Epivir PO DAILY KEN Lamivudine 50 mg 12/05/18 20:00 Epivir PO 12/05/18 20:01 ONCE ONE Metoclopramide HCl 5 mg 11/30/18 00:22 Reglan IV Q6H PRN Nausea And Vomiting Ondansetron HCl 4 mg 11/30/18 00:06 Zofran IV Q8H PRN Nausea And Vomiting Raltegravir 400 mg 11/30/18 16:00 12/05/18 10:09 Isentress PO 400 mg BID KEN Administration Simple Syrup 15 ml 12/03/18 10:42 Simple Syrup FEEDTUBE PRN PRN Hypoglycemia Simple Syrup 30 ml 12/03/18 10:42 Simple Syrup FEEDTUBE PRN PRN Hypoglycemia Sodium Bicarbonate 325 mg 12/03/18 10:42 Sodium Bicarbonate FEEDTUBE PRN PRN For Clogged Feeding Tube Sodium Chloride 10 ml 11/30/18 10:00 12/05/18 10:12 Sodium Chloride Flush Syringe 10 Ml IV 10 ml BID KEN Administration Sodium Chloride 10 ml 11/30/18 00:06 Sodium Chloride Flush Syringe 10 Ml IV PRN PRN LINE FLUSH Zidovudine 300 mg 11/30/18 16:00 12/05/18 10:10 Retrovir PO 300 mg BID KEN Administration Nutrition/Malnutrition Assess - Dietary Evaluation Nutrition/Malnutrition Findings: Nutrition Notes Start: 11/30/18 08:33 Freq: Status: Active Protocol: Document 12/04/18 11:07 LM (Rec: 12/04/18 11:18 LM [email or web address]) Nutrition Notes Initial or Follow up Reassessment Current Diagnosis Acute Kidney Injury,COPD, Diabetes,Hypertension Other Pertinent Diagnosis dementia, HIV, AMS Current Diet Nepro at 50 ml/hr Labs/Tests BUN 62 Cr 2 BG 266 Pertinent Medications Humalog Height 6 ft 4 in Weight 79.2 kg [place] Body Weight (kg) 91.81 BMI 21.2 Subjective/Other Information TF not running at time of visit. Pt NPO since last night for lumbar puncture this AM. Percent of energy/protein needs met: 0%/0% Burn Absent Trauma Absent #1 Nutrition Diagnosis Inadequate oral intake Diagnosis Progress(for reassessment Continues documentation) Is patient on ventilator? Yes Is Patient Ambulatory and/or Out of Bed No REE-([place]-confined to bed) 1966.356 Kcal/Kg value to use for calculation 27 Approximate Energy Requirements Using 2138 kcal/Kg Calculation Used for Recommendations Kcal/kg Additional Notes Protein: 95-158g (1.2-2g/kg) Fluids 1 ml/kcal or per MD Nutrition Intervention Change Diet Order: Continue TF Nutrition Support: Continue Nepro with Carbsteady at 50 ml/hr Flush 200 ml q4hr Kcal 2,160 Protein (gm) 97 Fluid (mL) 872 Goal #1 TF restart/tolerance Goal #2 Meet at least 80% of energy and protein needs Anticipated Discharge Needs: Unable to determine at this time Follow-Up By: 12/06/18 Additional Comments F/U for TF restart/tolerance, renal labs
[2018-12-05] MEDS ORDERED: NACL 0.9% 500 ML 500 ML IV SCH (18:30)
[2018-12-05] MEDS ORDERED: EPIVIR PO ONE (20:00)
[2018-12-05] MEDS: MAXIPIME/NS 2 GM/100 ML 2 GM/100 ML BAG IV SCH (22:05)
[2018-12-06] MEDS: HumaLOG SUB-Q SCH ×4 (01:51→18:44)
[2018-12-06 04:44] LABS: Basophils % (Auto) 0.1 % (0.0-1.8); Eosinophils % (Auto) 0.6 % (0.0-4.3); Hematocrit 32.8 % (35.5-45.6); Hemoglobin 10.6 gm/dl (11.8-15.2); Lymphocytes # (Auto) 0.4 K/mm3 (1.2-5.4); Lymphocytes % (Auto) 7.1 % (13.4-35.0); Mean Corpuscular HGB Conc 32 % (32-34); Monocytes # (Auto) 0.3 K/mm3 (0.0-0.8); Monocytes % (Auto) 4.3 % (0.0-7.3); Red Blood Count 2.88 M/mm3 (3.65-5.03); Red Cell Distribution Width 17.3 % (13.2-15.2)
[2018-12-06 04:48] LABS: Mean Corpuscular Volume 114 fl (84-94); Platelet Count 59 K/mm3 (140-440)
[2018-12-06 04:57] LABS: Calcium 8.3 mg/dL (8.4-10.2)
[2018-12-06 05:08] LABS: ABG Base Excess -2.7 mmol/L (-2.0-3.0); ABG HCO3 20.9 mmol/L (20.0-26.0); ABG Methemoglobin 0.5 % (0.0-1.5); ABG Oxygen Saturation 97.2 % (95.0-99.0); ABG PCO2 32.1 mm Hg; ABG PH 7.431 pH Units (7.350-7.450); ABG PO2 87.2 mm Hg (80.0-90.0)
--- NOTE | 2018-12-06 07:06 | Hem/Onc Progress Note ---
Assessment and Plan 1. Thrombocytopenia. The patient has multiple issues, which include HIV/immunosuppression medications. 2. At this time, there is no active bleeding. 3. h/o Unresponsive. 4. Leukopenia. 5. Macrocytosis. This may be medication related. 6. History of diabetes. 7. History of hypertension. 8. History of cerebrovascular accident. 9. History of dementia. 10. Chronic obstructive pulmonary disease. 11. Renal impairment. 12. Metabolic encephalopathy. 13. h/o Intubation. Respiratory support. 14. I will follow the patient during inpatient stay. We will do deficiency investigations and follow the patient. B12 is normal. ID following for HIV 12/06- s/p plt transfusion on 12/04 today plt >50 - as needed by Ir for LP - Patient Problems (1) Thrombocytopenia Current Visit: Yes Status: Acute Subjective Date of service: 12/06/18 Principal diagnosis: low plt Interval history: no bleeding - due LP Objective - Exam Narrative Exam: Pain - not verbal General appearance - not verbal - intubated Performance status complete dependence Eyes - no icterus ENT - no bleeding LNs cervical - not palpable Neck - no LN Respiratory Normal Breath sounds - CTA anteriorly CVS S1 S2 + Extremities no edema General GI Soft Rectal deferred male - deferred Skin warm Musculoskeletal not moving Neurologically non verbal - Constitutional Vitals: Last Vital Signs Temp 96.9 F L 12/06/18 04:00 Pulse 112 H 12/06/18 06:00 Resp 22 12/06/18 06:00 BP 114/83 12/06/18 06:00 Pulse Ox 99 12/06/18 06:00 - Labs Lab Results: Laboratory Results - last 24 hr 12/01/18 12/05/18 12/05/18 11:45 11:44 18:38 WBC RBC Hgb Hct MCV MCH MCHC RDW Plt Count Lymph % (Auto) [place] % (Auto) Eos % (Auto) Baso % (Auto) Lymph # [place] # Eos # Baso # Seg Neutrophils % Seg Neutrophils # ABG pH ABG pCO2 ABG pO2 ABG HCO3 ABG O2 Saturation ABG O2 Content ABG Base Excess ABG Hemoglobin ABG Carboxyhemoglobin ABG Methemoglobin Oxyhemoglobin FiO2 Sodium Potassium Chloride Carbon Dioxide Anion Gap BUN Creatinine Estimated GFR BUN/Creatinine Ratio Glucose POC Glucose 95 150 H Calcium Miscellaneous Test Flexitest 1 Blood Type 09/07/2012/06/18 12/06/18 23:59 04:02 04:02 WBC 6.4 RBC 2.88 L Hgb 10.6 L Hct 32.8 L MCV 114 H MCH 37 H MCHC 32 RDW 17.3 H Plt Count 59 L Lymph % (Auto) 7.1 L [place] % (Auto) 4.3 Eos % (Auto) 0.6 Baso % (Auto) 0.1 Lymph # 0.4 L [place] # 0.3 Eos # 0.0 Baso # 0.0 Seg Neutrophils % 87.9 H Seg Neutrophils # 5.6 ABG pH ABG pCO2 ABG pO2 ABG HCO3 ABG O2 Saturation ABG O2 Content ABG Base Excess ABG Hemoglobin ABG Carboxyhemoglobin ABG Methemoglobin Oxyhemoglobin FiO2 Sodium 146 H Potassium 3.7 Chloride 111.9 H Carbon Dioxide 21 L Anion Gap 17 BUN 52 H Creatinine 1.7 H Estimated GFR 48 BUN/Creatinine Ratio 31 Glucose 254 H POC Glucose 215 H Calcium 8.3 L Miscellaneous Test Blood Type 12/06/18 12/06/18 12/06/18 04:02 04:44 05:59 WBC RBC Hgb Hct MCV MCH MCHC RDW Plt Count Lymph % (Auto) [place] % (Auto) Eos % (Auto) Baso % (Auto) Lymph # [place] # Eos # Baso # Seg Neutrophils % Seg Neutrophils # ABG pH 7.431 ABG pCO2 32.1 ABG pO2 87.2 ABG HCO3 20.9 ABG O2 Saturation 97.2 ABG O2 Content 14.1 ABG Base Excess -2.7 L ABG Hemoglobin 10.5 L ABG Carboxyhemoglobin 2.1 ABG Methemoglobin 0.5 Oxyhemoglobin 94.7 L FiO2 30 Sodium Potassium Chloride Carbon Dioxide Anion Gap BUN Creatinine Estimated GFR BUN/Creatinine Ratio Glucose POC Glucose 270 H Calcium Miscellaneous Test Blood Type B POSITIVE Medications & Allergies - Medications Allergies/Adverse Reactions: Allergies No Known Allergies Allergy (Unverified 03/29/16 00:43) Home Medications: Home Medications Medication Instructions Recorded Confirmed Last Taken Type Aspirin [Aspirin BABY CHEW TAB] 81 mg PO QDAY #30 tab.chew 11/15/17 11/29/18 Unknown Rx Amlodipine Besylate 10 mg PO QDAY 05/21/18 11/29/18 Unknown History Carvedilol 6.25 mg PO BID 05/21/18 11/29/18 Unknown History Isentress 400 mg PO Q12HR 05/21/18 11/29/18 Unknown History Rosuvastatin Calcium 10 mg PO DAILY 05/21/18 11/29/18 Unknown History Memantine [Namenda] 5 mg PO QDAY #30 tablet 11/01/18 11/29/18 Unknown Rx Albuterol Sulfate [Albuterol 0.63% 0.63 mg IH TID PRN 30 Days ml 11/07/18 11/29/18 Unknown Rx NEBS] AtorvaSTATin [Lipitor] 20 mg PO QDAY #30 tablet 11/07/18 11/29/18 Unknown Rx Famotidine [Pepcid] 10 mg PO BID #60 tablet 11/07/18 11/29/18 Unknown Rx Ipratropium/Albuterol Sulfate 1 ampul IH Q6HR 30 Days ampul.neb 11/07/18 11/29/18 Unknown Rx [DUONEB *Not for PRN Use*] Tamsulosin [Flomax] 0.4 mg PO QHS #30 capsule 11/07/18 11/29/18 Unknown Rx Zidovudine 300 mg PO DAILY 11/09/18 11/29/18 Unknown History Insulin Regular, Human [HumuLIN R] 0 unit SQ AC #1 vial 11/12/18 11/29/18 Unknown Rx Active Medications: Generic Name Dose Route Start Last Admin Trade Name Freq PRN Reason Stop Dose Admin Abacavir Sulfate 600 mg 11/30/18 16:00 12/05/18 10:10 Ziagen PO 600 mg DAILY KEN Administration Albuterol 2.5 mg 11/30/18 00:17 Proventil IH Q4HRT PRN Shortness Of Breath Albuterol/Ipratropium 1 ampul 11/30/18 08:00 12/05/18 20:33 Duoneb *Not For Prn Use* IH 1 ampul QIDRT KEN Administration Lipase/Protease/Amylase 1 each 12/03/18 10:42 Harleen Manning 10,500 Unit FEEDTUBE PRN PRN For Clogged Feeding Tube Famotidine 10 mg 12/04/18 11:00 12/05/18 22:05 Pepcid PO 10 mg BID EKN Administration Fentanyl 50 mcg 12/04/18 17:28 12/05/18 03:01 Sublimaze IV 50 mcg Q2H PRN Administration INCREASED AGITATION Folic Acid 1 mg 12/04/18 12:00 12/05/18 10:09 Folvite PO 1 mg QDAY KEN Administration Cefepime HCl 2 gm in 100 mls @ 200 mls/hr 11/30/18 22:00 12/06/18 01:44 Maxipime/Ns 2 Gm/100 Ml IV Infused Q24H [facility] Infusion Protocol Sodium Chloride 500 mls @ 0 mls/hr 12/05/18 18:30 Nacl 0.9% 500 Ml IV 12/06/18 18:29 ONCE KEN As Directed Insulin Human Lispro 0 unit 11/30/18 07:00 12/06/18 06:03 Humalog SUB-Q 4 unit Q6HR KEN Administration Protocol Lamivudine 150 mg 12/06/18 10:00 Epivir PO DAILY KEN Metoclopramide HCl 5 mg 11/30/18 00:22 Reglan IV Q6H PRN Nausea And Vomiting Ondansetron HCl 4 mg 11/30/18 00:06 Zofran IV Q8H PRN Nausea And Vomiting Raltegravir 400 mg 11/30/18 16:00 12/05/18 22:05 Isentress PO 400 mg BID KEN Administration Simple Syrup 15 ml 12/03/18 10:42 Simple Syrup FEEDTUBE PRN PRN Hypoglycemia Simple Syrup 30 ml 12/03/18 10:42 Simple Syrup FEEDTUBE PRN PRN Hypoglycemia Sodium Bicarbonate 325 mg 12/03/18 10:42 Sodium Bicarbonate FEEDTUBE PRN PRN For Clogged Feeding Tube Sodium Chloride 10 ml 11/30/18 10:00 12/05/18 22:06 Sodium Chloride Flush Syringe 10 Ml IV 10 ml BID KEN Administration Sodium Chloride 10 ml 11/30/18 00:06 Sodium Chloride Flush Syringe 10 Ml IV PRN PRN LINE FLUSH Zidovudine 300 mg 11/30/18 16:00 12/05/18 22:05 Retrovir PO 300 mg BID KEN Administration
[2018-12-06] MEDS: DUONEB *Not for PRN Use IH SCH ×4 (08:25→19:26)
--- NOTE | 2018-12-06 09:39 | Progress Note ---
Assessment and Plan 1. Acute kidney injury: Vasomotor CONNIE superimposed on CKD in the setting of hypotension. Renal US negative for hydro. Continue IV fluids. Renal function is improving. Monitor renal function. Renal prognosis is guarded. Avoid nephrotoxic agents. Meds dosage based on GFR. 2. FEN: Hyperkalemia, improved. Hypernatremia, continue free water flushes. Monitor lytes. 3. Acute hypoxic respiratory failure: Intubated on vent. 4. Acute Metabolic Encephalopathy. 5. Elevated troponin. 6. Macrocytic anemia: POA. Low Folate, continue Folic acid. 7. Type 2 DM. Subjective Date of service: 12/06/18 Principal diagnosis: low plt - HIV Interval history: Patient was seen and examined at the bedside. Objective - Vital Signs Vital signs: Vital Signs - 12hr 12/05/18 12/05/18 12/06/18 22:00 23:00 00:00 Temperature 97.6 F Pulse Rate 109 H 110 H 111 H Pulse Rate [ Anterior Bilateral Throughout] Pulse Rate [ 102 H Apical] Respiratory 13 15 12 Rate Respiratory Rate [Anterior Bilateral Throughout] Blood Pressure 113/75 121/77 118/75 O2 Sat by Pulse 99 99 99 Oximetry 12/06/18 12/06/18 12/06/18 00:36 01:00 01:07 Temperature Pulse Rate 108 H 112 H 115 H Pulse Rate [ Anterior Bilateral Throughout] Pulse Rate [ Apical] Respiratory 16 15 Rate Respiratory Rate [Anterior Bilateral Throughout] Blood Pressure 118/75 124/84 124/84 O2 Sat by Pulse 99 99 Oximetry 12/06/18 12/06/18 12/06/18 02:00 03:00 04:00 Temperature 96.9 F L Pulse Rate 97 H 114 H 114 H Pulse Rate [ Anterior Bilateral Throughout] Pulse Rate [ 102 H Apical] Respiratory 18 17 19 Rate Respiratory Rate [Anterior Bilateral Throughout] Blood Pressure 122/75 119/82 117/82 O2 Sat by Pulse 98 99 97 Oximetry 12/06/18 12/06/18 12/06/18 04:34 05:00 06:00 Temperature Pulse Rate 113 H 95 H 112 H Pulse Rate [ Anterior Bilateral Throughout] Pulse Rate [ Apical] Respiratory 17 22 Rate Respiratory Rate [Anterior Bilateral Throughout] Blood Pressure 117/82 123/76 114/83 O2 Sat by Pulse 99 98 99 Oximetry 12/06/18 12/06/18 08:00 08:27 Temperature Pulse Rate 114 H Pulse Rate [ 100 H Anterior Bilateral Throughout] Pulse Rate [ 115 H Apical] Respiratory 25 H Rate Respiratory 19 Rate [Anterior Bilateral Throughout] Blood Pressure 105/74 O2 Sat by Pulse 100 Oximetry - General Appearance General appearance: well-developed, appears stated age, intubated, other (on vent) EENT: ATNC, PERRL Neck: supple Respiratory: Present: Clear to Ascultation Cardiology: regular, S1S2, no murmurs Gastrointestinal: normoactive bowel sounds, no tenderness, no distended Neurologic: other (opens eyes, not following any command) Musculoskeletal: other (no edema) - Lab 12/06/18 04:02 12/06/18 04:02 Most recent lab results ABG pH 7.431 pH Units (7.350-7.450) 12/06/18 04:44 ABG pCO2 32.1 mm Hg 12/06/18 04:44 ABG pO2 87.2 mm Hg (80.0-90.0) 12/06/18 04:44 ABG HCO3 20.9 mmol/L (20.0-26.0) 12/06/18 04:44 ABG O2 Saturation 97.2 % (95.0-99.0) 12/06/18 04:44 Calcium 8.3 mg/dL (8.4-10.2) L 12/06/18 04:02 Phosphorus 2.80 mg/dL (2.5-4.5) 12/04/18 08:01 Magnesium 2.10 mg/dL (1.7-2.3) 12/04/18 08:01 173.8 mg/dL (0.1-20.0) H 11/30/18 14:20 18 mmol/L 11/30/18 14:20 Medications & Allergies - Medications Allergies/Adverse Reactions: Allergies No Known Allergies Allergy (Unverified 03/29/16 00:43) Home Medications: Home Medications Medication Instructions Recorded Confirmed Last Taken Type Aspirin [Aspirin BABY CHEW TAB] 81 mg PO QDAY #30 tab.chew 11/15/17 11/29/18 Unknown Rx Amlodipine Besylate 10 mg PO QDAY 05/21/18 11/29/18 Unknown History Carvedilol 6.25 mg PO BID 05/21/18 11/29/18 Unknown History Isentress 400 mg PO Q12HR 05/21/18 11/29/18 Unknown History Rosuvastatin Calcium 10 mg PO DAILY 05/21/18 11/29/18 Unknown History Memantine [Namenda] 5 mg PO QDAY #30 tablet 11/01/18 11/29/18 Unknown Rx Albuterol Sulfate [Albuterol 0.63% 0.63 mg IH TID PRN 30 Days ml 11/07/18 11/29/18 Unknown Rx NEBS] AtorvaSTATin [Lipitor] 20 mg PO QDAY #30 tablet 11/07/18 11/29/18 Unknown Rx Famotidine [Pepcid] 10 mg PO BID #60 tablet 11/07/18 11/29/18 Unknown Rx Ipratropium/Albuterol Sulfate 1 ampul IH Q6HR 30 Days ampul.neb 11/07/18 11/29/18 Unknown Rx [DUONEB *Not for PRN Use*] Tamsulosin [Flomax] 0.4 mg PO QHS #30 capsule 11/07/18 11/29/18 Unknown Rx Zidovudine 300 mg PO DAILY 11/09/18 11/29/18 Unknown History Insulin Regular, Human [HumuLIN R] 0 unit SQ AC #1 vial 11/12/18 11/29/18 Unknown Rx Active Medications: Generic Name Dose Route Start Last Admin Trade Name Freq PRN Reason Stop Dose Admin Abacavir Sulfate 600 mg 11/30/18 16:00 12/05/18 10:10 Ziagen PO 600 mg DAILY KEN Administration Albuterol 2.5 mg 11/30/18 00:17 Proventil IH Q4HRT PRN Shortness Of Breath Albuterol/Ipratropium 1 ampul 11/30/18 08:00 12/06/18 08:25 Duoneb *Not For Prn Use* IH 1 ampul QIDRT KEN Administration Lipase/Protease/Amylase 1 each 12/03/18 10:42 Harleen Manning 10,500 Unit FEEDTUBE PRN PRN For Clogged Feeding Tube Famotidine 10 mg 12/04/18 11:00 12/05/18 22:05 Pepcid PO 10 mg BID KEN Administration Fentanyl 50 mcg 12/04/18 17:28 12/05/18 03:01 Sublimaze IV 50 mcg Q2H PRN Administration INCREASED AGITATION Folic Acid 1 mg 12/04/18 12:00 12/05/18 10:09 Folvite PO 1 mg QDAY KEN Administration Cefepime HCl 2 gm in 100 mls @ 200 mls/hr 11/30/18 22:00 12/06/18 01:44 Maxipime/Ns 2 Gm/100 Ml IV Infused Q24H [facility] Infusion Protocol Sodium Chloride 500 mls @ 0 mls/hr 12/05/18 18:30 Nacl 0.9% 500 Ml IV 12/06/18 18:29 ONCE KEN As Directed Insulin Human Lispro 0 unit 11/30/18 07:00 12/06/18 06:03 Humalog SUB-Q 4 unit Q6HR KEN Administration Protocol Lamivudine 150 mg 12/06/18 10:00 Epivir PO DAILY KEN Metoclopramide HCl 5 mg 11/30/18 00:22 Reglan IV Q6H PRN Nausea And Vomiting Ondansetron HCl 4 mg 11/30/18 00:06 Zofran IV Q8H PRN Nausea And Vomiting Raltegravir 400 mg 11/30/18 16:00 12/05/18 22:05 Isentress PO 400 mg BID KEN Administration Simple Syrup 15 ml 12/03/18 10:42 Simple Syrup FEEDTUBE PRN PRN Hypoglycemia Simple Syrup 30 ml 12/03/18 10:42 Simple Syrup FEEDTUBE PRN PRN Hypoglycemia Sodium Bicarbonate 325 mg 12/03/18 10:42 Sodium Bicarbonate FEEDTUBE PRN PRN For Clogged Feeding Tube Sodium Chloride 10 ml 11/30/18 10:00 12/05/18 22:06 Sodium Chloride Flush Syringe 10 Ml IV 10 ml BID KEN Administration Sodium Chloride 10 ml 11/30/18 00:06 Sodium Chloride Flush Syringe 10 Ml IV PRN PRN LINE FLUSH Zidovudine 300 mg 11/30/18 16:00 12/05/18 22:05 Retrovir PO 300 mg BID KEN Administration
[2018-12-06] MEDS: ISENTRESS PO SCH ×2 (09:50→21:09)
[2018-12-06] MEDS: FOLVITE PO SCH (09:50)
[2018-12-06] MEDS: PEPCID PO SCH ×2 (09:50→21:09)
[2018-12-06] MEDS: ZIAGEN PO SCH (09:51)
[2018-12-06] MEDS: RETROVIR PO SCH ×2 (09:51→21:10)
[2018-12-06] MEDS: EPIVIR PO SCH (09:52)
[2018-12-06] MEDS: SODIUM CHLORIDE FLUSH SYRINGE 10 ML IV SCH ×2 (09:52→21:11)
--- NOTE | 2018-12-06 11:41 | Progress Note ---
Assessment and Plan Altered mental status Thrombocytopenia Hx of CVA Non-specific troponin Cardiomyopathy, EF 15-20% Moderate to severe MR and TR Renal failure HIV Supportive cardiac management. Subjective Date of service: 12/06/18 Principal diagnosis: low plt - HIV Interval history: No cardiac events overnight. Objective Vital Signs Temp Pulse Pulse Pulse Resp Resp BP 12/06/18 08:27 100 H 19 12/06/18 08:00 96.8 F L 114 H 115 H 25 H 105/74 12/06/18 06:00 112 H 22 114/83 12/06/18 05:00 95 H 17 123/76 12/06/18 04:34 113 H 117/82 12/06/18 04:00 96.9 F L 114 H 102 H 19 117/82 12/06/18 03:00 114 H 17 119/82 12/06/18 02:00 97 H 18 122/75 12/06/18 01:07 115 H 124/84 12/06/18 01:00 112 H 15 124/84 12/06/18 00:36 108 H 16 118/75 12/06/18 00:00 97.6 F 111 H 102 H 12 118/75 12/05/18 23:00 110 H 15 121/77 12/05/18 22:00 109 H 13 113/75 12/05/18 21:00 110 H 15 116/78 12/05/18 20:35 110 H 18 12/05/18 20:22 112 H 15 122/80 12/05/18 20:00 97.2 F L 108 H 106 H 16 122/80 12/05/18 19:36 112 H 14 114/74 12/05/18 19:00 105 H 18 114/74 12/05/18 18:00 114 H 18 109/70 12/05/18 17:00 87 16 114/68 12/05/18 16:30 113 H 17 12/05/18 16:00 98.1 F 110 H 110 H 18 106/66 12/05/18 15:00 112 H 18 107/66 12/05/18 14:00 94 H 19 109/61 12/05/18 13:00 114 H 24 103/76 12/05/18 12:20 97.4 F L 12/05/18 12:00 97.4 F L 110 H 110 H 19 101/67 12/05/18 11:57 111 H 20 Pulse Ox 12/06/18 08:27 12/06/18 08:00 100 12/06/18 06:00 99 12/06/18 05:00 98 12/06/18 04:34 99 12/06/18 04:00 97 12/06/18 03:00 99 12/06/18 02:00 98 12/06/18 01:07 99 12/06/18 01:00 12/06/18 00:36 99 12/06/18 00:00 99 12/05/18 23:00 99 12/05/18 22:00 99 12/05/18 21:00 100 12/05/18 20:35 12/05/18 20:22 99 12/05/18 20:00 99 12/05/18 19:36 99 12/05/18 19:00 99 12/05/18 18:00 100 12/05/18 17:00 99 12/05/18 16:30 12/05/18 16:00 112 H 12/05/18 15:00 12/05/18 14:00 97 12/05/18 13:00 98 12/05/18 12:20 12/05/18 12:00 99 12/05/18 11:57 - Physical Examination General: Other (on the vent) Neck: Positive: trachea midline Cardiac: Positive: Reg Rate and Rhythm Neuro: Positive: Other (unresponsive, on the vent) Extremities: Absent: edema - Labs and Meds CBC 12/06/18 Range/Units 04:02 WBC 6.4 (4.5-11.0) K/mm3 RBC 2.88 L (3.65-5.03) M/mm3 Hgb 10.6 L (11.8-15.2) gm/dl Hct 32.8 L (35.5-45.6) % Plt Count 59 L (140-440) K/mm3 Lymph # 0.4 L (1.2-5.4) K/mm3 [place] # 0.3 (0.0-0.8) K/mm3 Eos # 0.0 (0.0-0.4) K/mm3 Baso # 0.0 (0.0-0.1) K/mm3 Comprehensive Metabolic Panel 12/06/18 Range/Units 04:02 Sodium 146 H (137-145) mmol/L Potassium 3.7 (3.6-5.0) mmol/L Chloride 111.9 H (98-107) mmol/L Carbon Dioxide 21 L (22-30) mmol/L BUN 52 H (9-20) mg/dL Creatinine 1.7 H (0.8-1.5) mg/dL Glucose 254 H (75-100) mg/dL Calcium 8.3 L (8.4-10.2) mg/dL
--- NOTE | 2018-12-06 11:51 | Fluoroscopy Report ---
LUMBAR PUNCTURE INDICATION : Evaluate for meningitis PROCEDURE: The risks (including but not limited to bleeding, infection, and spinal headache) and nisreen efits were explained to the patient and informed consent was obtained. A time out procedure was perf ormed. The procedure site was prepped and draped in the usual sterile fashion and lidocaine was used for local anesthesia. Under fluoroscopic guidance, a 22-gauge spinal needle was advanced into the L2-3 interlaminar space. There was spontaneous return of clear CSF. 4 separate collection tubes were used to obtain approximat marce 2 cc of CSF in each tube Samples were sent to the lab per the ordering physician specifications f or further evaluation. The patient tolerated the procedure well with no complications. IMPRESSION: Successful lumbar puncture as outlined above. Fluoroscopic time: 0.5 minutes Number of fluoroscopic images: 1 Signer Name: Andrea Yanez Jr, MD Signed: 12/06/2018 11:46 AM Workstation Name: [id number]
--- NOTE | 2018-12-06 12:27 | Progress Note ---
Assessment and Plan Imp: 1. Acute encephalopathy 2. SIRS 3. Acute respiratory failure, hypoxia 4. CONNIE 5. Volume depletion 6. Hypernatremia 7. HIV 8. Pancytopenia Rec: 1. ABX per ID; f/u cultures; F/u LP results 2. EEG ordered; consider MRI brain and neurology consult 3. Daily PSV trials -> mechanics adequate but mentation still borderline (unclear baseline); suspect we can give him a trial of extubation in the next day or so 4. Increase free water 5. Labs in AM 6. On ART 7. Folic acid supplementation 8. TFs, SCDs, Pepcid 9. Prognosis guarded to poor 10. No family present today 11. Complex decision-making Subjective Date of service: 12/06/18 Principal diagnosis: low plt - HIV Interval history: No events. Opens eyes. Not following commands for me, although does track and seems to be alert. LP just done, back up to ICU and back on PSV 10/. Active Medications Abacavir Sulfate (Ziagen) 600 mg PO DAILY [facility] Last Admin: 12/06/18 09:51 Dose: 600 mg Documented by: Albuterol (Proventil) 2.5 mg IH Q4HRT PRN PRN Reason: Shortness Of Breath Albuterol/Ipratropium (Duoneb *Not For Prn Use*) 1 ampul IH QIDRT [facility] Last Admin: 12/06/18 08:25 Dose: 1 ampul Documented by: Lipase/Protease/Amylase (Harleen Manning 10,500 Unit) 1 each FEEDTUBE PRN PRN PRN Reason: For Clogged Feeding Tube Famotidine (Pepcid) 10 mg PO BID [facility] Last Admin: 12/06/18 09:50 Dose: 10 mg Documented by: Fentanyl (Sublimaze) 50 mcg IV Q2H PRN PRN Reason: INCREASED AGITATION Last Admin: 12/05/18 03:01 Dose: 50 mcg Documented by: Folic Acid (Folvite) 1 mg PO QDAY [facility] Last Admin: 12/06/18 09:50 Dose: 1 mg Documented by: Cefepime HCl (Maxipime/Ns 2 Gm/100 Ml) 2 gm in 100 mls @ 200 mls/hr IV Q24H [facility]; Protocol Last Infusion: 12/06/18 01:44 Dose: Infused Documented by: Sodium Chloride (Nacl 0.9% 500 Ml) 500 mls @ 0 mls/hr IV ONCE [facility] Stop: 12/06/18 18:29 Insulin Human Lispro (Humalog) 0 unit SUB-Q Q6HR [facility]; Protocol Last Admin: 12/06/18 06:03 Dose: 4 unit Documented by: Lamivudine (Epivir) 150 mg PO DAILY [facility] Last Admin: 12/06/18 09:52 Dose: 150 mg Documented by: Metoclopramide HCl (Reglan) 5 mg IV Q6H PRN PRN Reason: Nausea And Vomiting Ondansetron HCl (Zofran) 4 mg IV Q8H PRN PRN Reason: Nausea And Vomiting Raltegravir (Isentress) 400 mg PO BID [facility] Last Admin: 12/06/18 09:50 Dose: 400 mg Documented by: Simple Syrup (Simple Syrup) 15 ml FEEDTUBE PRN PRN PRN Reason: Hypoglycemia Simple Syrup (Simple Syrup) 30 ml FEEDTUBE PRN PRN PRN Reason: Hypoglycemia Sodium Bicarbonate (Sodium Bicarbonate) 325 mg FEEDTUBE PRN PRN PRN Reason: For Clogged Feeding Tube Sodium Chloride (Sodium Chloride Flush Syringe 10 Ml) 10 ml IV BID [facility] Last Admin: 12/06/18 09:52 Dose: 10 ml Documented by: Sodium Chloride (Sodium Chloride Flush Syringe 10 Ml) 10 ml IV PRN PRN PRN Reason: LINE FLUSH Zidovudine (Retrovir) 300 mg PO BID [facility] Last Admin: 12/06/18 09:51 Dose: 300 mg Documented by: Objective Vital Signs - 12hr 12/06/18 12/06/18 12/06/18 00:36 01:00 01:07 Temperature Pulse Rate 108 H 112 H 115 H Pulse Rate [ Anterior Bilateral Throughout] Pulse Rate [ Apical] Respiratory 16 15 Rate Respiratory Rate [Anterior Bilateral Throughout] Blood Pressure 118/75 124/84 124/84 O2 Sat by Pulse 99 99 Oximetry 12/06/18 12/06/18 12/06/18 02:00 03:00 04:00 Temperature 96.9 F L Pulse Rate 97 H 114 H 114 H Pulse Rate [ Anterior Bilateral Throughout] Pulse Rate [ 102 H Apical] Respiratory 18 17 19 Rate Respiratory Rate [Anterior Bilateral Throughout] Blood Pressure 122/75 119/82 117/82 O2 Sat by Pulse 98 99 97 Oximetry 12/06/18 12/06/18 12/06/18 04:34 05:00 06:00 Temperature Pulse Rate 113 H 95 H 112 H Pulse Rate [ Anterior Bilateral Throughout] Pulse Rate [ Apical] Respiratory 17 22 Rate Respiratory Rate [Anterior Bilateral Throughout] Blood Pressure 117/82 123/76 114/83 O2 Sat by Pulse 99 98 99 Oximetry 12/06/18 12/06/18 12/06/18 08:00 08:27 12:00 Temperature 96.8 F L Pulse Rate 114 H 109 H Pulse Rate [ 100 H Anterior Bilateral Throughout] Pulse Rate [ 115 H Apical] Respiratory 25 H 15 Rate Respiratory 19 Rate [Anterior Bilateral Throughout] Blood Pressure 105/74 104/74 O2 Sat by Pulse 100 99 Oximetry Constitutional: other (critically ill on vent, awake, eyes open) Eyes: non-icteric ENT: oropharynx moist, other (intubated) Neck: supple Effort: normal Ascultation: Bilateral: rhonchi Percussion: Bilateral: not dull Cardiovascular: other (tachy, RR; no mrg) Gastrointestinal: normoactive bowel sounds, soft, non-tender, non-distended Extremities: no cyanosis, no edema, pink and warm Neurologic: other (eyes open, not following commands for me) Psychiatric: other (unable to assess) CBC and BMP: 12/06/18 04:02 12/06/18 04:02 ABG, PT/INR, D-dimer: ABG POC ABG pH 7.437 (7.35-7.45) 12/04/18 03:48 ABG pH 7.431 pH Units (7.350-7.450) 12/06/18 04:44 ABG pCO2 32.1 mm Hg 12/06/18 04:44 POC ABG pO2 82 (80-105) 12/04/18 03:48 ABG pO2 87.2 mm Hg (80.0-90.0) 12/06/18 04:44 POC ABG HCO3 19.3 (22-26 mml/L) 12/04/18 03:48 POC ABG Total CO2 20 (23-27mmol/L) 12/04/18 03:48 POC ABG O2 Sat 97 12/04/18 03:48 ABG O2 Saturation 97.2 % (95.0-99.0) 12/06/18 04:44 PT/INR, D-dimer PT 17.0 Sec. (12.2-14.9) H 12/04/18 08:01 INR 1.42 (0.87-1.13) H 12/04/18 08:01 Abnormal lab findings: Abnormal Labs 11/29/18 11/29/18 11/29/18 13:07 13:39 13:39 WBC 3.2 L RBC 2.76 L Hgb 10.4 L Hct 32.1 L MCV 116 H MCH 38 H RDW 17.5 H Plt Count 48 L Lymph % (Auto) 5.4 L Lymph # 0.2 L Seg Neutrophils % 89.5 H PT INR POC ABG pH POC ABG pO2 ABG pO2 ABG HCO3 ABG O2 Saturation ABG Base Excess ABG Hemoglobin VBG pH Oxyhemoglobin Sodium 153 H Potassium Chloride 113.3 H Carbon Dioxide 21 L BUN 55 H Creatinine 2.4 H Glucose 260 H POC Glucose 289 H Calcium Iron TIBC AST 68 H Alkaline Phosphatase 239 H Total Creatine Kinase 243 H Troponin T 0.054 H Total Protein 5.8 L Albumin 3.0 L LDL Cholesterol Direct 30 L HDL Cholesterol 63 H Vitamin B12 Folate Urine Creatinine Salicylates Acetaminophen 11/29/18 11/29/18 11/29/18 13:39 13:39 13:39 WBC RBC Hgb Hct MCV MCH RDW Plt Count Lymph % (Auto) Lymph # Seg Neutrophils % PT INR POC ABG pH POC ABG pO2 ABG pO2 ABG HCO3 ABG O2 Saturation ABG Base Excess ABG Hemoglobin VBG pH 7.186 L* Oxyhemoglobin Sodium Potassium Chloride Carbon Dioxide BUN Creatinine Glucose POC Glucose Calcium Iron TIBC AST Alkaline Phosphatase Total Creatine Kinase Troponin T Total Protein Albumin LDL Cholesterol Direct HDL Cholesterol Vitamin B12 Folate Urine Creatinine Salicylates < 0.3 L Acetaminophen < 5.0 L 11/29/18 11/29/18 11/30/18 14:24 21:17 05:50 WBC RBC Hgb Hct MCV MCH RDW Plt Count Lymph % (Auto) Lymph # Seg Neutrophils % PT INR POC ABG pH 7.319 L POC ABG pO2 126 H ABG pO2 203.3 H ABG HCO3 18.5 L ABG O2 Saturation 99.3 H ABG Base Excess -6.2 L ABG Hemoglobin 10.9 L VBG pH Oxyhemoglobin Sodium Potassium Chloride Carbon Dioxide BUN Creatinine Glucose POC Glucose 242 H Calcium Iron TIBC AST Alkaline Phosphatase Total Creatine Kinase Troponin T Total Protein Albumin LDL Cholesterol Direct HDL Cholesterol Vitamin B12 Folate Urine Creatinine Salicylates Acetaminophen 11/30/18 11/30/18 11/30/18 08:52 10:31 10:58 WBC RBC 3.05 L Hgb 11.5 L Hct 35.3 L MCV 116 H MCH 38 H RDW 17.2 H Plt Count 43 L Lymph % (Auto) Lymph # Seg Neutrophils % PT INR POC ABG pH POC ABG pO2 ABG pO2 ABG HCO3 ABG O2 Saturation ABG Base Excess ABG Hemoglobin VBG pH Oxyhemoglobin Sodium 153 H Potassium Chloride 117.2 H Carbon Dioxide 18 L BUN 60 H Creatinine 2.8 H Glucose 216 H POC Glucose 234 H Calcium 8.2 L Iron TIBC AST Alkaline Phosphatase Total Creatine Kinase Troponin T Total Protein Albumin LDL Cholesterol Direct HDL Cholesterol Vitamin B12 Folate Urine Creatinine Salicylates Acetaminophen 11/30/18 11/30/18 11/30/18 12:40 14:20 17:35 WBC RBC Hgb Hct MCV MCH RDW Plt Count Lymph % (Auto) Lymph # Seg Neutrophils % PT INR POC ABG pH POC ABG pO2 ABG pO2 ABG HCO3 ABG O2 Saturation ABG Base Excess ABG Hemoglobin VBG pH Oxyhemoglobin Sodium Potassium Chloride Carbon Dioxide BUN Creatinine Glucose POC Glucose 235 H 182 H Calcium Iron TIBC AST Alkaline Phosphatase Total Creatine Kinase Troponin T Total Protein Albumin LDL Cholesterol Direct HDL Cholesterol Vitamin B12 Folate Urine Creatinine 173.8 H Salicylates Acetaminophen 11/30/18 12/01/18 12/01/18 23:53 04:08 04:08 WBC RBC 3.11 L Hgb 11.7 L Hct 35.3 L MCV 113 H MCH 38 H RDW 16.9 H Plt Count 43 L Lymph % (Auto) Lymph # Seg Neutrophils % PT INR POC ABG pH POC ABG pO2 ABG pO2 ABG HCO3 ABG O2 Saturation ABG Base Excess ABG Hemoglobin VBG pH Oxyhemoglobin Sodium 150 H Potassium Chloride 114.6 H Carbon Dioxide 16 L BUN 67 H Creatinine 2.9 H Glucose 193 H POC Glucose 149 H Calcium 8.2 L Iron TIBC AST Alkaline Phosphatase Total Creatine Kinase Troponin T Total Protein Albumin LDL Cholesterol Direct HDL Cholesterol Vitamin B12 Folate Urine Creatinine Salicylates Acetaminophen 12/01/18 12/01/18 12/01/18 04:55 05:11 13:33 WBC RBC Hgb Hct MCV MCH RDW Plt Count Lymph % (Auto) Lymph # Seg Neutrophils % PT INR POC ABG pH POC ABG pO2 ABG pO2 91.9 H ABG HCO3 17.7 L ABG O2 Saturation ABG Base Excess -6.1 L ABG Hemoglobin 11.5 L VBG pH Oxyhemoglobin Sodium Potassium Chloride Carbon Dioxide BUN Creatinine Glucose POC Glucose 236 H 255 H Calcium Iron TIBC AST Alkaline Phosphatase Total Creatine Kinase Troponin T Total Protein Albumin LDL Cholesterol Direct HDL Cholesterol Vitamin B12 Folate Urine Creatinine Salicylates Acetaminophen 12/01/18 12/02/18 12/02/18 18:20 00:17 03:40 WBC RBC Hgb Hct MCV MCH RDW Plt Count Lymph % (Auto) Lymph # Seg Neutrophils % PT INR POC ABG pH POC ABG pO2 ABG pO2 78.0 L ABG HCO3 16.4 L ABG O2 Saturation ABG Base Excess -6.2 L ABG Hemoglobin 11.4 L VBG pH Oxyhemoglobin 94.5 L Sodium Potassium Chloride Carbon Dioxide BUN Creatinine Glucose POC Glucose 177 H 192 H Calcium Iron TIBC AST Alkaline Phosphatase Total Creatine Kinase Troponin T Total Protein Albumin LDL Cholesterol Direct HDL Cholesterol Vitamin B12 Folate Urine Creatinine Salicylates Acetaminophen 12/02/18 12/02/18 12/02/18 05:11 05:26 07:50 WBC 4.1 L RBC 3.01 L Hgb 11.4 L Hct 34.1 L MCV 113 H MCH 38 H RDW 17.3 H Plt Count 40 L Lymph % (Auto) Lymph # Seg Neutrophils % PT INR POC ABG pH POC ABG pO2 ABG pO2 ABG HCO3 ABG O2 Saturation ABG Base Excess ABG Hemoglobin VBG pH Oxyhemoglobin Sodium Potassium 5.6 H D Chloride 113.0 H Carbon Dioxide 16 L BUN 73 H Creatinine 2.8 H Glucose 202 H POC Glucose 179 H Calcium Iron TIBC AST Alkaline Phosphatase Total Creatine Kinase Troponin T Total Protein Albumin LDL Cholesterol Direct HDL Cholesterol Vitamin B12 Folate Urine Creatinine Salicylates Acetaminophen 12/02/18 12/02/18 12/02/18 11:57 18:40 18:43 WBC RBC Hgb Hct MCV MCH RDW Plt Count Lymph % (Auto) Lymph # Seg Neutrophils % PT INR POC ABG pH POC ABG pO2 ABG pO2 ABG HCO3 ABG O2 Saturation ABG Base Excess ABG Hemoglobin VBG pH Oxyhemoglobin Sodium Potassium Chloride Carbon Dioxide BUN Creatinine Glucose POC Glucose 140 H 286 H 261 H Calcium Iron TIBC AST Alkaline Phosphatase Total Creatine Kinase Troponin T Total Protein Albumin LDL Cholesterol Direct HDL Cholesterol Vitamin B12 Folate Urine Creatinine Salicylates Acetaminophen 12/02/18 12/03/18 12/03/18 23:55 04:06 04:06 WBC 4.4 L RBC 2.96 L Hgb 11.3 L Hct 33.1 L MCV 112 H MCH 38 H RDW 16.7 H Plt Count 38 L Lymph % (Auto) Lymph # Seg Neutrophils % PT INR POC ABG pH POC ABG pO2 ABG pO2 ABG HCO3 ABG O2 Saturation ABG Base Excess ABG Hemoglobin VBG pH Oxyhemoglobin Sodium 146 H Potassium Chloride 112.5 H Carbon Dioxide 18 L BUN 71 H Creatinine 2.5 H Glucose 258 H POC Glucose 303 H Calcium 8.3 L Iron TIBC AST Alkaline Phosphatase Total Creatine Kinase Troponin T Total Protein Albumin LDL Cholesterol Direct HDL Cholesterol Vitamin B12 Folate Urine Creatinine Salicylates Acetaminophen 12/03/18 12/03/18 12/03/18 05:17 11:25 17:46 WBC RBC Hgb Hct MCV MCH RDW Plt Count Lymph % (Auto) Lymph # Seg Neutrophils % PT INR POC ABG pH POC ABG pO2 ABG pO2 ABG HCO3 ABG O2 Saturation ABG Base Excess ABG Hemoglobin VBG pH Oxyhemoglobin Sodium Potassium Chloride Carbon Dioxide BUN Creatinine Glucose POC Glucose 328 H 288 H 202 H Calcium Iron TIBC AST Alkaline Phosphatase Total Creatine Kinase Troponin T Total Protein Albumin LDL Cholesterol Direct HDL Cholesterol Vitamin B12 Folate Urine Creatinine Salicylates Acetaminophen 12/04/18 12/04/18 12/04/18 01:15 05:47 08:01 WBC RBC 3.11 L Hgb 11.7 L Hct MCV 115 H MCH 38 H RDW 17.6 H Plt Count 35 L Lymph % (Auto) 6.9 L Lymph # 0.3 L Seg Neutrophils % 87.7 H PT INR POC ABG pH POC ABG pO2 ABG pO2 ABG HCO3 ABG O2 Saturation ABG Base Excess ABG Hemoglobin VBG pH Oxyhemoglobin Sodium Potassium Chloride Carbon Dioxide BUN Creatinine Glucose POC Glucose 282 H 265 H Calcium Iron TIBC AST Alkaline Phosphatase Total Creatine Kinase Troponin T Total Protein Albumin LDL Cholesterol Direct HDL Cholesterol Vitamin B12 Folate Urine Creatinine Salicylates Acetaminophen 12/04/18 12/04/18 12/04/18 08:01 08:01 08:01 WBC RBC Hgb Hct MCV MCH RDW Plt Count Lymph % (Auto) Lymph # Seg Neutrophils % PT 17.0 H INR 1.42 H POC ABG pH POC ABG pO2 ABG pO2 ABG HCO3 ABG O2 Saturation ABG Base Excess ABG Hemoglobin VBG pH Oxyhemoglobin Sodium Potassium Chloride 114.6 H Carbon Dioxide 20 L BUN 62 H Creatinine 2.0 H Glucose 266 H POC Glucose Calcium 8.3 L Iron 20 L TIBC 168 L AST Alkaline Phosphatase 292 H Total Creatine Kinase Troponin T Total Protein 5.2 L Albumin 2.1 L LDL Cholesterol Direct HDL Cholesterol Vitamin B12 Folate 7.24 L Urine Creatinine Salicylates Acetaminophen 12/04/18 12/04/18 12/04/18 11:59 17:59 22:59 WBC RBC Hgb Hct MCV MCH RDW Plt Count Lymph % (Auto) Lymph # Seg Neutrophils % PT INR POC ABG pH POC ABG pO2 ABG pO2 ABG HCO3 ABG O2 Saturation ABG Base Excess ABG Hemoglobin VBG pH Oxyhemoglobin Sodium Potassium Chloride Carbon Dioxide BUN Creatinine Glucose POC Glucose 267 H 226 H 341 H Calcium Iron TIBC AST Alkaline Phosphatase Total Creatine Kinase Troponin T Total Protein Albumin LDL Cholesterol Direct HDL Cholesterol Vitamin B12 Folate Urine Creatinine Salicylates Acetaminophen 12/05/18 12/05/18 12/05/18 03:42 03:42 03:42 WBC RBC 2.89 L Hgb 10.8 L Hct 32.2 L MCV 111 H MCH 37 H RDW 16.8 H Plt Count 47 L Lymph % (Auto) 5.5 L Lymph # 0.3 L Seg Neutrophils % 89.9 H PT INR POC ABG pH POC ABG pO2 ABG pO2 ABG HCO3 ABG O2 Saturation ABG Base Excess ABG Hemoglobin VBG pH Oxyhemoglobin Sodium 146 H Potassium Chloride 113.3 H Carbon Dioxide 19 L BUN 55 H Creatinine 1.8 H Glucose 268 H POC Glucose Calcium 8.3 L Iron TIBC AST Alkaline Phosphatase Total Creatine Kinase Troponin T Total Protein Albumin LDL Cholesterol Direct HDL Cholesterol Vitamin B12 1798 H Folate Urine Creatinine Salicylates Acetaminophen 12/05/18 12/05/18 12/05/18 04:14 18:38 23:59 WBC RBC Hgb Hct MCV MCH RDW Plt Count Lymph % (Auto) Lymph # Seg Neutrophils % PT INR POC ABG pH POC ABG pO2 ABG pO2 75.1 L ABG HCO3 ABG O2 Saturation ABG Base Excess -4.0 L ABG Hemoglobin 8.2 L VBG pH Oxyhemoglobin 94.0 L Sodium Potassium Chloride Carbon Dioxide BUN Creatinine Glucose POC Glucose 150 H 215 H Calcium Iron TIBC AST Alkaline Phosphatase Total Creatine Kinase Troponin T Total Protein Albumin LDL Cholesterol Direct HDL Cholesterol Vitamin B12 Folate Urine Creatinine Salicylates Acetaminophen 12/06/18 12/06/18 12/06/18 04:02 04:02 04:44 WBC RBC 2.88 L Hgb 10.6 L Hct 32.8 L MCV 114 H MCH 37 H RDW 17.3 H Plt Count 59 L Lymph % (Auto) 7.1 L Lymph # 0.4 L Seg Neutrophils % 87.9 H PT INR POC ABG pH POC ABG pO2 ABG pO2 ABG HCO3 ABG O2 Saturation ABG Base Excess -2.7 L ABG Hemoglobin 10.5 L VBG pH Oxyhemoglobin 94.7 L Sodium 146 H Potassium Chloride 111.9 H Carbon Dioxide 21 L BUN 52 H Creatinine 1.7 H Glucose 254 H POC Glucose Calcium 8.3 L Iron TIBC AST Alkaline Phosphatase Total Creatine Kinase Troponin T Total Protein Albumin LDL Cholesterol Direct HDL Cholesterol Vitamin B12 Folate Urine Creatinine Salicylates Acetaminophen 12/06/18 05:59 WBC RBC Hgb Hct MCV MCH RDW Plt Count Lymph % (Auto) Lymph # Seg Neutrophils % PT INR POC ABG pH POC ABG pO2 ABG pO2 ABG HCO3 ABG O2 Saturation ABG Base Excess ABG Hemoglobin VBG pH Oxyhemoglobin Sodium Potassium Chloride Carbon Dioxide BUN Creatinine Glucose POC Glucose 270 H Calcium Iron TIBC AST Alkaline Phosphatase Total Creatine Kinase Troponin T Total Protein Albumin LDL Cholesterol Direct HDL Cholesterol Vitamin B12 Folate Urine Creatinine Salicylates Acetaminophen Chest x-ray: report reviewed, image reviewed
[2018-12-06 12:45] LABS: Appearance,CSF Clear; Red Blood Cell,CSF 1 /mm3 (0-0); White Blood Cell,CSF 2 /mm3 (1-10)
--- NOTE | 2018-12-06 13:17 | Procedure Note ---
Date of procedure: 12/06/18 Pre-op diagnosis: meningitis, ams Post-op diagnosis: same Procedure: lumbar punctureunder flouroscopy Findings: none Anesthesia: local Surgeon: DILEEP LANDEROS Estimated blood loss: none Pathology: list (4 tubes of CSF) Specimen disposition: to lab Condition: stable Disposition: floor
--- NOTE | 2018-12-06 13:36 | Progress Note ---
Assessment and Plan Cultures: 11/29 BCx - NGTD 11/29 UCx - NGTD serum Crypto Ag negative Assessment: : 73 yo M PMHx HIV, HTN, HLD admitted with AMS 1. SIRS possible sepsis - hypothermia and pancytopenia on admission and negative blood cultures. Unclear source. Hypothermia resolved. Etiology ?hormonal (thyroid/Lorain's) v/s opportunistic fungi like histoplasma seen in HIV patients causing Lorain's (however last reported CD4 250) 2. Altered mental status - unclear?. HIV related? some better. Possibly due to ongoing microvascular disease with ischemia. Able to passively move neck on exam, but difficult to assess for meningismus. Continue empiric antibiotics for now with cefepime 3. HIV - Well controlled at recent visit. Accidentally ordered qualitative VL last time, but genotype was unable to be performed thus meaning the VL was at least under 1000, and most likely undetectable. CD4 ~ 250. Continue home regimen of raltegravir, lamivudine, abacavir, zidovudine. 4. CONNIE -better 5. Pancytopenia mainly Thrombocytopenia: ? HIV, worsening 6. Acute respiratory failure: intubated for airway protection. Recommendations: - continue cefepime 2g q12h D7 - will stop tomorrow given negative LP. - LP with 2 WBC, remainder of analysis pending. Cultures pending. Other tests will take a while to return. - check am cortisol - ordered - check viral hepatitis panel - negative - check Histoplasma urine antigen - Negative - continue ART - abacavir, raltegravir, zidovudine. Renally dosed lamivudine to 150mg daily. Will follow. Belkis Alcantara MD [facility] M: [phone] O: [phone] F: [phone] Subjective Date of service: 12/06/18 Principal diagnosis: low plt - HIV Interval history: Intubated, eyes open but does not follow commands. Objective - Exam Narrative Exam: Physical Exam: Constitutional: Eyes open, does not follow commands. Head, Ears, Nose: Normocephalic, atraumatic. External ears, nose normal Eyes: Conjunctivae/corneas clear. No icterus. No ptosis. Neck: Supple, no meningeal signs Oral: intubated Cardiovascular: S1, S2 normal. Respiratory: Good air entry, clear to auscultation bilaterally GI: Soft, non-tender; bowel sounds normal. No peritoneal signs. Musculoskeletal: No pedal edema, no cyanosis. Skin: No rash or abscess Hem/Lymphatic: No palpable cervical or supraclavicular nodes. No lymphangitis Neurological: Intubated, non-responsive - Constitutional Vitals: Vital Signs Temp Pulse Resp BP Pulse Ox 96.8 F L 116 H 15 112/79 99 12/06/18 08:00 12/06/18 13:00 12/06/18 13:00 12/06/18 13:00 12/06/18 13:00 Temperature -Last 24 Hours Temperature 96.8 F Temperature 96.9 F Temperature 97.6 F Temperature 97.2 F Temperature 98.1 F - Labs CBC & Chem 7: 12/06/18 04:02 12/06/18 04:02 Labs: Abnormal lab results 12/05/18 12/05/18 12/06/18 Range/Units 18:38 23:59 04:02 RBC (3.65-5.03) M/mm3 Hgb (11.8-15.2) gm/dl Hct (35.5-45.6) % MCV (84-94) fl MCH (28-32) pg RDW (13.2-15.2) % Plt Count (140-440) K/mm3 Lymph % (Auto) (13.4-35.0) % Lymph # (1.2-5.4) K/mm3 Seg Neutrophils % (40.0-70.0) % ABG Base Excess (-2.0-3.0) mmol/L ABG Hemoglobin (14.0-18.0) gm/dl Oxyhemoglobin (95.0-99.0) % Sodium 146 H (137-145) mmol/L Chloride 111.9 H (98-107) mmol/L Carbon Dioxide 21 L (22-30) mmol/L BUN 52 H (9-20) mg/dL Creatinine 1.7 H (0.8-1.5) mg/dL Glucose 254 H (75-100) mg/dL POC Glucose 150 H 215 H (70-105) Calcium 8.3 L (8.4-10.2) mg/dL 12/06/18 12/06/18 12/06/18 Range/Units 04:02 04:44 05:59 RBC 2.88 L (3.65-5.03) M/mm3 Hgb 10.6 L (11.8-15.2) gm/dl Hct 32.8 L (35.5-45.6) % MCV 114 H (84-94) fl MCH 37 H (28-32) pg RDW 17.3 H (13.2-15.2) % Plt Count 59 L (140-440) K/mm3 Lymph % (Auto) 7.1 L (13.4-35.0) % Lymph # 0.4 L (1.2-5.4) K/mm3 Seg Neutrophils % 87.9 H (40.0-70.0) % ABG Base Excess -2.7 L (-2.0-3.0) mmol/L ABG Hemoglobin 10.5 L (14.0-18.0) gm/dl Oxyhemoglobin 94.7 L (95.0-99.0) % Sodium (137-145) mmol/L Chloride (98-107) mmol/L Carbon Dioxide (22-30) mmol/L BUN (9-20) mg/dL Creatinine (0.8-1.5) mg/dL Glucose (75-100) mg/dL POC Glucose 270 H (70-105) Calcium (8.4-10.2) mg/dL 12/06/18 Range/Units 12:08 RBC (3.65-5.03) M/mm3 Hgb (11.8-15.2) gm/dl Hct (35.5-45.6) % MCV (84-94) fl MCH (28-32) pg RDW (13.2-15.2) % Plt Count (140-440) K/mm3 Lymph % (Auto) (13.4-35.0) % Lymph # (1.2-5.4) K/mm3 Seg Neutrophils % (40.0-70.0) % ABG Base Excess (-2.0-3.0) mmol/L ABG Hemoglobin (14.0-18.0) gm/dl Oxyhemoglobin (95.0-99.0) % Sodium (137-145) mmol/L Chloride (98-107) mmol/L Carbon Dioxide (22-30) mmol/L BUN (9-20) mg/dL Creatinine (0.8-1.5) mg/dL Glucose (75-100) mg/dL POC Glucose 119 H (70-105) Calcium (8.4-10.2) mg/dL
[2018-12-06 14:08] LABS: Total Cells Counted 4 /mm3
[2018-12-06 14:19] LABS: Basophils CSF 0 %
[2018-12-06] MEDS: MAXIPIME/NS 2 GM/100 ML 2 GM/100 ML BAG IV SCH (21:08)
--- NOTE | 2018-12-06 22:07 | Progress Note ---
Assessment and Plan Assessment and plan: Patient is a 73 yo man from [facility] with severe end-stage co-morbities including HIV, type 2 DM, NSTEMI type 2, hyperkalemia, hypernatremia, malnutrition, severe CHF with EF 15-20%, Dementia, CVA with SAH after fall here at [facility] on 05/22/18 with transferred to [facility], recurrent bouts of hypog lycmia, who had been admitted 3 times this month of November 2018. 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 It was recommended that patient go to SNF but refused and took him home. He returned 2 days later due to hypoglycemia, it appears he wasn't eating enough but still taking DM medications. He was then discharged to [facility] on 11/07/2018. He returned 2 days later on 11/09/2018 due to hypoxemia and hypoglycemia again. He was discharged back to the ID on . Now he returns to the ED on 11/29/18 with severe worsening AMS GCS of 5 requiring Intubation. I do not know why he is on Fentanyl drip. * CT head without contrast Impression: There is continued extensive microvascula r angiopathy as detailed...without CT evidence of acute ICH. * pCXR Impression: Minimal interstitial edema, ngt in stomach, needs advancing 5-10 cm, borderline cardiomegaly, no consolidation or effusion * Abd XRAY after NGT advancement, shows it is in the correct position Acute Metabolic Encephalopathy, poa, work up in progress: ? secondary to HIV, consulted Neurology, input noted,MRI still pending, LP negative Acute respiratory failure >96 hours poa s/p ETT placement: consulted Pulmonology, input noted- ON PS may consider extubation if tolerating SIRS with possible Sepsis: Continue cefepime, to complete today. ID following, awaiting cultures. Acute on chronic systolic heart failure (congestive heart failure) 15-20%, mild: treat medically, bp borderline too low for IV lasix, consulted Cardiology, input noted HIV (human immunodeficiency virus infection): ID consulted, input noted Acute renal insufficiency, ATN + vasomotor nephropathy, poa: monitor uop q shift, nephrology consulted, urine electrolytes, strict I/O, monitor uop q shift, monitor fluid balance, monitor serum creatnine, some improvement noted Type 2 DM on Insulin with recurrent hypoglycemia: treat with SSI, ADA Severe malnutrition, as evidence by decubitus ulcers, inadequate nutritional intake, and muscle wasting. 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 Unclear s ource. CC-35 mins no family present poor prognosis History Interval history: Patient was seen and examined. Follow-up on current diagnosis of AMS. No overnight events reported to me. Imaging, nursing note, chart, labs and old chart reviewed. No family at bedside, patient opens eyes at verbal stimuli but not following any instruction, Hospitalist Physical - Physical exam Narrative exam: Gen: cachetic, intubated and sedated on fentanyl drip HEENT: NCAT, pupils pinpoint Neck: supple, no adenopathy, no thyromegaly, CVS/Heart: RRR, normal S1S2, pulses present bilaterally Chest/Lungs: diminished BS, Symmetrical chest expansion, good air entry bilaterally GI/Abdomen: soft, NTND, good bowel sounds, no guarding or rebound /Bladder: no suprapubic tenderness, no CVA or paraspinal tenderness Extermity/Skin: ble edema MSK: intubated and sedated Neuro: intubated and sedated Psych: intubated and sedated - Constitutional Vitals: Temp Pulse Resp BP Pulse Ox 97.4 F L 112 H 24 109/65 99 12/06/18 19:55 12/06/18 20:00 12/06/18 20:00 12/06/18 20:00 12/06/18 20:00 General appearance: Present: no acute distress, other (intubated on cpap) Results - Labs CBC & Chem 7: 12/07/18 02:40 12/08/18 03:43 Labs: Laboratory Last Values WBC 6.4 K/mm3 (4.5-11.0) 12/06/18 04:02 RBC 2.88 M/mm3 (3.65-5.03) L 12/06/18 04:02 Hgb 10.6 gm/dl (11.8-15.2) L 12/06/18 04:02 Hct 32.8 % (35.5-45.6) L 12/06/18 04:02 MCV 114 fl (84-94) H 12/06/18 04:02 MCH 37 pg (28-32) H 12/06/18 04:02 MCHC 32 % (32-34) 12/06/18 04:02 RDW 17.3 % (13.2-15.2) H 12/06/18 04:02 Plt Count 59 K/mm3 (140-440) L 12/06/18 04:02 Lymph % (Auto) 7.1 % (13.4-35.0) L 12/06/18 04:02 [facility] % (Auto) 4.3 % (0.0-7.3) 12/06/18 04:02 Eos % (Auto) 0.6 % (0.0-4.3) 12/06/18 04:02 Baso % (Auto) 0.1 % (0.0-1.8) 12/06/18 04:02 Lymph # 0.4 K/mm3 (1.2-5.4) L 12/06/18 04:02 [facility] # 0.3 K/mm3 (0.0-0.8) 12/06/18 04:02 Eos # 0.0 K/mm3 (0.0-0.4) 12/06/18 04:02 Baso # 0.0 K/mm3 (0.0-0.1) 12/06/18 04:02 Seg Neutrophils % 87.9 % (40.0-70.0) H 12/06/18 04:02 Seg Neutrophils # 5.6 K/mm3 (1.8-7.7) 12/06/18 04:02 PT 17.0 Sec. (12.2-14.9) H 12/04/18 08:01 INR 1.42 (0.87-1.13) H 12/04/18 08:01 APTT 36.4 Sec. (24.2-36.6) 12/04/18 08:01 POC ABG pH 7.437 (7.35-7.45) 12/04/18 03:48 ABG pH 7.431 pH Units (7.350-7.450) 12/06/18 04:44 POC ABG pCO2 39.5 (35-45) 11/29/18 14:24 ABG pCO2 32.1 mm Hg 12/06/18 04:44 POC ABG pO2 82 (80-105) 12/04/18 03:48 ABG pO2 87.2 mm Hg (80.0-90.0) 12/06/18 04:44 POC ABG HCO3 19.3 (22-26 mml/L) 12/04/18 03:48 ABG HCO3 20.9 mmol/L (20.0-26.0) 12/06/18 04:44 POC ABG Total CO2 20 (23-27mmol/L) 12/04/18 03:48 POC ABG O2 Sat 97 12/04/18 03:48 ABG O2 Saturation 97.2 % (95.0-99.0) 12/06/18 04:44 ABG O2 Content 14.1 (0.0-44) 12/06/18 04:44 POC ABG Base Excess -5 ((-2) - (+3)mmol/L) 12/04/18 03:48 ABG Base Excess -2.7 mmol/L (-2.0-3.0) L 12/06/18 04:44 ABG Hemoglobin 10.5 gm/dl (14.0-18.0) L 12/06/18 04:44 ABG Carboxyhemoglobin 2.1 % (0.0-5.0) 12/06/18 04:44 ABG Methemoglobin 0.5 % (0.0-1.5) 12/06/18 04:44 VBG pH 7.186 (7.320-7.420) L* 11/29/18 13:39 94.7 % (95.0-99.0) L 12/06/18 04:44 30 % 12/06/18 04:44 Sodium 146 mmol/L (137-145) H 12/06/18 04:02 Potassium 3.7 mmol/L (3.6-5.0) 12/06/18 04:02 Chloride 111.9 mmol/L (98-107) H 12/06/18 04:02 Carbon Dioxide 21 mmol/L (22-30) L 12/06/18 04:02 17 mmol/L 12/06/18 04:02 BUN 52 mg/dL (9-20) H 12/06/18 04:02 1.7 mg/dL (0.8-1.5) H 12/06/18 04:02 Estimated GFR 48 ml/min 12/06/18 04:02 31 % 12/06/18 04:02 Glucose 254 mg/dL (75-100) H 12/06/18 04:02 POC Glucose 158 (70-105) H 12/06/18 17:52 Lactic Acid 1.30 mmol/L (0.7-2.0) 11/29/18 14:42 Calcium 8.3 mg/dL (8.4-10.2) L 12/06/18 04:02 Phosphorus 2.80 mg/dL (2.5-4.5) 12/04/18 08:01 Magnesium 2.10 mg/dL (1.7-2.3) 12/04/18 08:01 Iron 20 ug/dL (49-181) L 12/04/18 08:01 TIBC 168 mcg/dL (250-450) L 12/04/18 08:01 174.3 ng/mL (13.0-400.0) 12/04/18 08:01 0.50 mg/dL (0.1-1.2) 12/04/18 08:01 AST 24 units/L (5-40) 12/04/18 08:01 ALT 32 units/L (7-56) 12/04/18 08:01 292 units/L (35-129) H 12/04/18 08:01 28.0 umol/L (25-60) 11/29/18 13:39 243 units/L (55-170) H 11/29/18 13:39 0.054 ng/mL (0.00-0.029) H 11/29/18 13:39 5.2 g/dL (6.3-8.2) L 12/04/18 08:01 2.1 g/dL (3.9-5) L 12/04/18 08:01 0.7 % 12/04/18 08:01 Triglycerides 68 mg/dL (2-149) 11/29/18 13:39 Cholesterol 95 mg/dL (50-199) 11/29/18 13:39 30 mg/dL (50-130) L 11/29/18 13:39 63 mg/dL (40-59) H 11/29/18 13:39 1.50 % 11/29/18 13:39 Vitamin B12 1798 pg/mL (211-911) H 12/05/18 03:42 7.24 ng/mL (7.3-26.0) L 12/04/18 08:01 14.8 mcg/dL () 12/01/18 09:08 Yellow (Yellow) 11/29/18 13:16 Clear (Clear) 11/29/18 13:16 5.0 (5.0-7.0) 11/29/18 13:16 Ur Specific [place] 1.018 (1.003-1.030) 11/29/18 13:16 30 mg/dl mg/dL (Negative) 11/29/18 13:16 Neg mg/dL (Negative) 11/29/18 13:16 Neg mg/dL (Negative) 11/29/18 13:16 Neg (Negative) 11/29/18 13:16 Neg (Negative) 11/29/18 13:16 Neg (Negative) 11/29/18 13:16 < 2.0 mg/dL (<2.0) 11/29/18 13:16 Ur Leukocyte Esterase Neg (Negative) 11/29/18 13:16 5.0 /HPF (0.0-6.0) 11/29/18 13:16 2.0 /HPF (0.0-6.0) 11/29/18 13:16 1+ /HPF (Negative) 11/29/18 13:16 173.8 mg/dL (0.1-20.0) H 11/30/18 14:20 18 mmol/L 11/30/18 14:20 Clear 12/02/18 Unknown Colorless 12/02/18 Unknown 2 /mm3 (1-10) 12/02/18 Unknown 1 /mm3 (0-0) 12/02/18 Unknown CSF Seg Neutrophils 50.0 % (0-6) 12/02/18 Unknown 0 % (40-80) 12/02/18 Unknown CSF Reactive Lymphs 0 % 12/02/18 Unknown 50.0 % (15-45) 12/02/18 Unknown 0 % 12/02/18 Unknown 0 % 12/02/18 Unknown C 12/02/18 Unknown Random Vancomycin 10.7 ug/mL (0-40.0) 12/01/18 13:20 Salicylates < 0.3 mg/dL (2.8-20.0) L 11/29/18 13:39 Presumptive negative 11/29/18 13:16 Presumptive negative 11/29/18 13:16 Acetaminophen < 5.0 ug/mL (10.0-30.0) L 11/29/18 13:39 Ur Barbiturates Screen Presumptive negative 11/29/18 13:16 Ur Phencyclidine Scrn Presumptive negative 11/29/18 13:16 Ur Amphetamines Screen Presumptive negative 11/29/18 13:16 U Benzodiazepines Scrn Presumptive negative 11/29/18 13:16 Presumptive negative 11/29/18 13:16 U Marijuana (THC) Screen Presumptive negative 11/29/18 13:16 Disclamer 11/29/18 13:16 Non-reactive (NonReactive) 12/01/18 04:08 RPR Nonreactive (Nonreactive) 12/02/18 17:04 Hepatitis A IgM Ab Non-reactive (NonReactive) 12/02/18 17:04 Hep Bs Antigen Non-reactive (Negative) 12/02/18 17:04 Hep B Core IgM Ab Non-reactive (NonReactive) 12/02/18 17:04 Non-reactive (NonReactive) 12/02/18 17:04 Flexitest 1 12/01/18 11:45 Blood Type B POSITIVE 12/06/18 04:02 Antibody Screen Negative 11/29/18 13:39 Active Medications - Current Medications Current Medications: Generic Name Dose Route Start Last Admin Trade Name Freq PRN Reason Stop Dose Admin Abacavir Sulfate 600 mg 11/30/18 16:00 12/06/18 09:51 Ziagen PO 600 mg DAILY KEN Administration Albuterol 2.5 mg 11/30/18 00:17 Proventil IH Q4HRT PRN Shortness Of Breath Albuterol/Ipratropium 1 ampul 11/30/18 08:00 12/06/18 19:26 Duoneb *Not For Prn Use* IH 1 ampul QIDRT KEN Administration Lipase/Protease/Amylase 1 each 12/03/18 10:42 Pancreaze 10,500 Unit FEEDTUBE PRN PRN For Clogged Feeding Tube Famotidine 10 mg 12/04/18 11:00 12/06/18 21:09 Pepcid PO 10 mg BID KEN Administration Fentanyl 50 mcg 12/04/18 17:28 12/05/18 03:01 Sublimaze IV 50 mcg Q2H PRN Administration INCREASED AGITATION Folic Acid 1 mg 12/04/18 12:00 12/06/18 09:50 Folvite PO 1 mg QDAY KEN Administration Cefepime HCl 2 gm in 100 mls @ 200 mls/hr 11/30/18 22:00 12/06/18 21:08 Maxipime/Ns 2 Gm/100 Ml IV 200 mls/hr Q24H KEN Administration Protocol Insulin Human Lispro 0 unit 11/30/18 07:00 12/06/18 18:44 Humalog SUB-Q 2 unit Q6HR KEN Administration Protocol Lamivudine 150 mg 12/06/18 10:00 12/06/18 09:52 Epivir PO 150 mg DAILY KEN Administration Metoclopramide HCl 5 mg 11/30/18 00:22 Reglan IV Q6H PRN Nausea And Vomiting Ondansetron HCl 4 mg 11/30/18 00:06 Zofran IV Q8H PRN Nausea And Vomiting Raltegravir 400 mg 11/30/18 16:00 12/06/18 21:09 Isentress PO 400 mg BID KEN Administration Simple Syrup 15 ml 12/03/18 10:42 Simple Syrup FEEDTUBE PRN PRN Hypoglycemia Simple Syrup 30 ml 12/03/18 10:42 Simple Syrup FEEDTUBE PRN PRN Hypoglycemia Sodium Bicarbonate 325 mg 12/03/18 10:42 Sodium Bicarbonate FEEDTUBE PRN PRN For Clogged Feeding Tube Sodium Chloride 10 ml 11/30/18 10:00 12/06/18 21:11 Sodium Chloride Flush Syringe 10 Ml IV 10 ml BID KEN Administration Sodium Chloride 10 ml 11/30/18 00:06 Sodium Chloride Flush Syringe 10 Ml IV PRN PRN LINE FLUSH Zidovudine 300 mg 11/30/18 16:00 12/06/18 21:10 Retrovir PO 300 mg BID KEN Administration Nutrition/Malnutrition Assess - Dietary Evaluation Nutrition/Malnutrition Findings: Nutrition Notes Start: 11/30/18 08:33 Freq: Status: Active Protocol: Document 12/06/18 09:45 LM (Rec: 12/06/18 09:55 LM [email or web address]) Nutrition Notes Initial or Follow up Reassessment Current Diagnosis Acute Kidney Injury,COPD, Diabetes,Hypertension Other Pertinent Diagnosis dementia, HIV, AMS Current Diet NPO Labs/Tests BUN 44 Cr 2.0 BG 96 Na 146 Pertinent Medications Reviewed Height 6 ft 4 in Weight 84.6 kg [place] Body Weight (kg) 91.81 BMI 22.6 Weight change and time frame Weight gain noted Subjective/Other Information TF not running at time of visit. Pt still NPO. Per nurse lumbar punture rescheduled for today due to thrombocytopenia. Percent of energy/protein needs met: 0%/0% Burn Absent Trauma Absent #1 Nutrition Diagnosis Inadequate oral intake Diagnosis Progress(for reassessment Continues documentation) Is patient on ventilator? Yes Is Patient Ambulatory and/or Out of Bed No REE-([facility]-confined to bed) 203.084 Kcal/Kg value to use for calculation 27 Approximate Energy Requirements Using 2284 kcal/Kg Calculation Used for Recommendations Kcal/kg Additional Notes Protein: 95-158g (1.2-2g/kg) Fluids 1 ml/kcal or per MD Nutrition Intervention Change Diet Order: Restart TF Nutrition Support: Nepro with Carbsteady at 50ml/ hr Change Flush to 250 ml q4hr for hypernatremia when TF reordered Kcal 2,160 Protein (gm) 97 Fluid (mL) 872 Goal #1 TF restart/tolerance Goal #2 Meet at least 80% of energy and protein needs Anticipated Discharge Needs: Unable to determine at this time Follow-Up By: 12/08/18 Additional Comments F/U for TF restart/tolerance, Na labs
[2018-12-06 22:20] LABS: Glucose,CSF 122 mg/dL
[2018-12-07] MEDS: HumaLOG SUB-Q SCH ×4 (02:00→18:23)
[2018-12-07 03:20] LABS: Hematocrit 31.5 % (35.5-45.6); Hemoglobin 10.2 gm/dl (11.8-15.2); Mean Corpuscular HGB Conc 32 % (32-34); Red Blood Count 2.78 M/mm3 (3.65-5.03); Red Cell Distribution Width 16.7 % (13.2-15.2)
[2018-12-07 03:35] LABS: Mean Corpuscular Volume 113 fl (84-94)
[2018-12-07 04:17] LABS: Calcium 8.4 mg/dL (8.4-10.2)
[2018-12-07 04:38] LABS: Basophils % (Manual) 0 % (0.0-1.8); Eosinophils % (Manual) 0 % (0.0-4.3); Monocytes % (Manual) 0 % (0.0-7.3); Total Cells Counted 100
[2018-12-07 04:40] LABS: Anisocytosis 1+; Burr Cells Few; Macrocytosis 1+; Poikilocytosis 1+; Tear Drop Cells Rare
[2018-12-07 04:41] LABS: Platelet Estimate Consistent w Auto
[2018-12-07 04:43] LABS: Platelet Count 57 K/mm3 (140-440)
--- NOTE | 2018-12-07 07:18 | Hem/Onc Progress Note ---
Assessment and Plan 1. Thrombocytopenia. The patient has multiple issues, which include HIV/immunosuppression medications. 2. At this time, there is no active bleeding. 3. h/o Unresponsive. 4. Leukopenia. 5. Macrocytosis. This may be medication related. 6. History of diabetes. 7. History of hypertension. 8. History of cerebrovascular accident. 9. History of dementia. 10. Chronic obstructive pulmonary disease. 11. Renal impairment. 12. Metabolic encephalopathy. 13. h/o Intubation. Respiratory support. 14. I will follow the patient during inpatient stay. We will do deficiency investigations and follow the patient. B12 is normal. ID following for HIV 12/07- s/p plt transfusion on 12/04 ID following for LP on folic acid - as folate was low - Patient Problems (1) Thrombocytopenia Current Visit: Yes Status: Acute Subjective Date of service: 12/07/18 Principal diagnosis: low plt Interval history: s/p LP Objective - Exam Narrative Exam: Pain - not verbal General appearance - not verbal - intubated Performance status complete dependence Eyes - no icterus ENT - no bleeding LNs cervical - not palpable Neck - no LN Respiratory Normal Breath sounds - CTA anteriorly CVS S1 S2 + Extremities no edema General GI Soft Rectal deferred male - deferred Skin warm Musculoskeletal not moving Neurologically non verbal - Constitutional Vitals: Last Vital Signs Temp 98.8 F 12/07/18 04:00 Pulse 114 H 12/07/18 06:00 Resp 21 12/07/18 06:00 BP 118/81 12/07/18 06:00 Pulse Ox 100 12/07/18 06:00 - Labs Lab Results: Laboratory Results - last 24 hr 12/02/18 12/02/18 12/06/18 Unknown Unknown 04:02 WBC RBC Hgb Hct MCV MCH MCHC RDW Plt Count Add Manual Diff Total Counted Seg Neutrophils % Seg Neuts % (Manual) Band Neutrophils % Lymphocytes % (Manual) Reactive Lymphs % (Man) Monocytes % (Manual) Eosinophils % (Manual) Basophils % (Manual) Metamyelocytes % Myelocytes % Promyelocytes % Blast Cells % Nucleated RBC % Seg Neutrophils # Man Band Neutrophils # Lymphocytes # (Manual) Abs React Lymphs (Man) Monocytes # (Manual) Eosinophils # (Manual) Basophils # (Manual) Metamyelocytes # Myelocytes # Promyelocytes # Blast Cells # WBC Morphology Hypersegmented Neuts Hyposegmented Neuts Hypogranular Neuts Smudge Cells Toxic Granulation Toxic Vacuolation Dohle Bodies Pelger-Huet Anomaly Marco A Rods Platelet Estimate Clumped Platelets Plt Clumps, EDTA Large Platelets Giant Platelets Platelet Satelliting Plt Morphology Comment RBC Morphology Dimorphic RBCs Polychromasia Hypochromasia Poikilocytosis Anisocytosis Microcytosis Macrocytosis Spherocytes Pappenheimer Bodies Sickle Cells Target Cells Tear Drop Cells Ovalocytes Helmet Cells [place] Bodies [place] Rings [place] Cells Bite Cells Crenated Cell Elliptocytes Acanthocytes (Spur) Rouleaux Hemoglobin C Crystals Schistocytes Malaria parasites Chris Bodies Hem Pathologist Commnt Sodium Potassium Chloride Carbon Dioxide Anion Gap BUN Creatinine Estimated GFR BUN/Creatinine Ratio Glucose POC Glucose Calcium CSF Appearance Clear CSF Color Colorless CSF WBC 2 CSF RBC 1 CSF Seg Neutrophils 50.0 CSF Lymphocytes % 0 CSF Reactive Lymphs 0 CSF Monocytes % 50.0 CSF Eosinophils % 0 CSF Basophils 0 CSF Pathologist Review C CSF Glucose 122 CSF Total Protein 22 Blood Type B POSITIVE 12/06/18 12/06/18 12/07/18 12:08 17:52 00:00 WBC RBC Hgb Hct MCV MCH MCHC RDW Plt Count Add Manual Diff Total Counted Seg Neutrophils % Seg Neuts % (Manual) Band Neutrophils % Lymphocytes % (Manual) Reactive Lymphs % (Man) Monocytes % (Manual) Eosinophils % (Manual) Basophils % (Manual) Metamyelocytes % Myelocytes % Promyelocytes % Blast Cells % Nucleated RBC % Seg Neutrophils # Man Band Neutrophils # Lymphocytes # (Manual) Abs React Lymphs (Man) Monocytes # (Manual) Eosinophils # (Manual) Basophils # (Manual) Metamyelocytes # Myelocytes # Promyelocytes # Blast Cells # WBC Morphology Hypersegmented Neuts Hyposegmented Neuts Hypogranular Neuts Smudge Cells Toxic Granulation Toxic Vacuolation Dohle Bodies Pelger-Huet Anomaly Marco A Rods Platelet Estimate Clumped Platelets Plt Clumps, EDTA Large Platelets Giant Platelets Platelet Satelliting Plt Morphology Comment RBC Morphology Dimorphic RBCs Polychromasia Hypochromasia Poikilocytosis Anisocytosis Microcytosis Macrocytosis Spherocytes Pappenheimer Bodies Sickle Cells Target Cells Tear Drop Cells Ovalocytes Helmet Cells [place] Bodies [place] Rings [place] Cells Bite Cells Crenated Cell Elliptocytes Acanthocytes (Spur) Rouleaux Hemoglobin C Crystals Schistocytes Malaria parasites Chris Bodies Hem Pathologist Commnt Sodium Potassium Chloride Carbon Dioxide Anion Gap BUN Creatinine Estimated GFR BUN/Creatinine Ratio Glucose POC Glucose 119 H 158 H 203 H Calcium CSF Appearance CSF Color CSF WBC CSF RBC CSF Seg Neutrophils CSF Lymphocytes % CSF Reactive Lymphs CSF Monocytes % CSF Eosinophils % CSF Basophils CSF Pathologist Review CSF Glucose CSF Total Protein Blood Type 12/07/18 12/07/18 12/07/18 02:40 02:40 05:27 WBC 7.2 RBC 2.78 L Hgb 10.2 L Hct 31.5 L MCV 113 H MCH 37 H MCHC 32 RDW 16.7 H Plt Count 57 L Add Manual Diff Complete Total Counted 100 Seg Neutrophils % Barrel Loader Seg Neuts % (Manual) 99.0 H Band Neutrophils % 0 Lymphocytes % (Manual) 1.0 L Reactive Lymphs % (Man) 0 Monocytes % (Manual) 0 Eosinophils % (Manual) 0 Basophils % (Manual) 0 Metamyelocytes % 0 Myelocytes % 0 Promyelocytes % 0 Blast Cells % 0 Nucleated RBC % Not Reportable Seg Neutrophils # Man 7.1 Band Neutrophils # 0.0 Lymphocytes # (Manual) 0.1 L Abs React Lymphs (Man) 0.0 Monocytes # (Manual) 0.0 Eosinophils # (Manual) 0.0 Basophils # (Manual) 0.0 Metamyelocytes # 0.0 Myelocytes # 0.0 Promyelocytes # 0.0 Blast Cells # 0.0 WBC Morphology Not Reportable Hypersegmented Neuts Not Reportable Hyposegmented Neuts Not Reportable Hypogranular Neuts Not Reportable Smudge Cells Not Reportable Toxic Granulation Not Reportable Toxic Vacuolation Not Reportable Dohle Bodies Not Reportable Pelger-Huet Anomaly Not Reportable Marco A Rods Not Reportable Platelet Estimate Consistent w auto Clumped Platelets Not Reportable Plt Clumps, EDTA Not Reportable Large Platelets Not Reportable Giant Platelets Not Reportable Platelet Satelliting Not Reportable Plt Morphology Comment Not Reportable RBC Morphology Not Reportable Dimorphic RBCs Not Reportable Polychromasia Not Reportable Hypochromasia Not Reportable Poikilocytosis 1+ Anisocytosis 1+ Microcytosis Not Reportable Macrocytosis 1+ Spherocytes Not Reportable Pappenheimer Bodies Not Reportable Sickle Cells Not Reportable Target Cells Not Reportable Tear Drop Cells Rare Ovalocytes Not Reportable Helmet Cells Not Reportable [place] Bodies Not Reportable [place] Rings Not Reportable [place] Cells Few Bite Cells Not Reportable Crenated Cell Not Reportable Elliptocytes Few Acanthocytes (Spur) Not Reportable Rouleaux Not Reportable Hemoglobin C Crystals Not Reportable Schistocytes Not Reportable Malaria parasites Not Reportable Chris Bodies Not Reportable Hem Pathologist Commnt No Sodium 147 H Potassium 3.4 L Chloride 111.6 H Carbon Dioxide 19 L Anion Gap 20 BUN 50 H Creatinine 1.6 H Estimated GFR 51 BUN/Creatinine Ratio 31 Glucose 243 H POC Glucose 299 H Calcium 8.4 CSF Appearance CSF Color CSF WBC CSF RBC CSF Seg Neutrophils CSF Lymphocytes % CSF Reactive Lymphs CSF Monocytes % CSF Eosinophils % CSF Basophils CSF Pathologist Review CSF Glucose CSF Total Protein Blood Type Medications & Allergies - Medications Allergies/Adverse Reactions: Allergies No Known Allergies Allergy (Unverified 03/29/16 00:43) Home Medications: Home Medications Medication Instructions Recorded Confirmed Last Taken Type Aspirin [Aspirin BABY CHEW TAB] 81 mg PO QDAY #30 tab.chew 11/15/17 11/29/18 Unknown Rx Amlodipine Besylate 10 mg PO QDAY 05/21/18 11/29/18 Unknown History Carvedilol 6.25 mg PO BID 05/21/18 11/29/18 Unknown History Isentress 400 mg PO Q12HR 05/21/18 11/29/18 Unknown History Rosuvastatin Calcium 10 mg PO DAILY 05/21/18 11/29/18 Unknown History Memantine [Namenda] 5 mg PO QDAY #30 tablet 11/01/18 11/29/18 Unknown Rx Albuterol Sulfate [Albuterol 0.63% 0.63 mg IH TID PRN 30 Days ml 11/07/18 11/29/18 Unknown Rx NEBS] AtorvaSTATin [Lipitor] 20 mg PO QDAY #30 tablet 11/07/18 11/29/18 Unknown Rx Famotidine [Pepcid] 10 mg PO BID #60 tablet 11/07/18 11/29/18 Unknown Rx Ipratropium/Albuterol Sulfate 1 ampul IH Q6HR 30 Days ampul.neb 11/07/18 11/29/18 Unknown Rx [DUONEB *Not for PRN Use*] Tamsulosin [Flomax] 0.4 mg PO QHS #30 capsule 11/07/18 11/29/18 Unknown Rx Zidovudine 300 mg PO DAILY 11/09/18 11/29/18 Unknown History Insulin Regular, Human [HumuLIN R] 0 unit SQ AC #1 vial 11/12/18 11/29/18 Unknown Rx Active Medications: Generic Name Dose Route Start Last Admin Trade Name Freq PRN Reason Stop Dose Admin Abacavir Sulfate 600 mg 11/30/18 16:00 12/06/18 09:51 Ziagen PO 600 mg DAILY KEN Administration Albuterol 2.5 mg 11/30/18 00:17 Proventil IH Q4HRT PRN Shortness Of Breath Albuterol/Ipratropium 1 ampul 11/30/18 08:00 12/06/18 19:26 Duoneb *Not For Prn Use* IH 1 ampul QIDRT KEN Administration Lipase/Protease/Amylase 1 each 12/03/18 10:42 Pancreaze 10,500 Unit FEEDTUBE PRN PRN For Clogged Feeding Tube Famotidine 10 mg 12/04/18 11:00 12/06/18 21:09 Pepcid PO 10 mg BID KEN Administration Fentanyl 50 mcg 12/04/18 17:28 12/05/18 03:01 Sublimaze IV 50 mcg Q2H PRN Administration INCREASED AGITATION Folic Acid 1 mg 12/04/18 12:00 12/06/18 09:50 Folvite PO 1 mg QDAY KEN Administration Cefepime HCl 2 gm in 100 mls @ 200 mls/hr 11/30/18 22:00 12/06/18 21:08 Maxipime/Ns 2 Gm/100 Ml IV 200 mls/hr Q24H KEN Administration Protocol Insulin Human Lispro 0 unit 11/30/18 07:00 12/07/18 02:00 Humalog SUB-Q 3 unit Q6HR KEN Administration Protocol Lamivudine 150 mg 12/06/18 10:00 12/06/18 09:52 Epivir PO 150 mg DAILY KEN Administration Metoclopramide HCl 5 mg 11/30/18 00:22 Reglan IV Q6H PRN Nausea And Vomiting Ondansetron HCl 4 mg 11/30/18 00:06 Zofran IV Q8H PRN Nausea And Vomiting Raltegravir 400 mg 11/30/18 16:00 12/06/18 21:09 Isentress PO 400 mg BID KEN Administration Simple Syrup 15 ml 12/03/18 10:42 Simple Syrup FEEDTUBE PRN PRN Hypoglycemia Simple Syrup 30 ml 12/03/18 10:42 Simple Syrup FEEDTUBE PRN PRN Hypoglycemia Sodium Bicarbonate 325 mg 12/03/18 10:42 Sodium Bicarbonate FEEDTUBE PRN PRN For Clogged Feeding Tube Sodium Chloride 10 ml 11/30/18 10:00 12/06/18 21:11 Sodium Chloride Flush Syringe 10 Ml IV 10 ml BID KEN Administration Sodium Chloride 10 ml 11/30/18 00:06 Sodium Chloride Flush Syringe 10 Ml IV PRN PRN LINE FLUSH Zidovudine 300 mg 11/30/18 16:00 12/06/18 21:10 Retrovir PO 300 mg BID KEN Administration
[2018-12-07] MEDS: DUONEB *Not for PRN Use IH SCH ×4 (09:50→19:50)
[2018-12-07] MEDS: FOLVITE PO SCH (09:55)
[2018-12-07] MEDS: PEPCID PO SCH ×2 (09:55→22:40)
[2018-12-07] MEDS: RETROVIR PO SCH ×2 (09:55→22:39)
[2018-12-07] MEDS: ZIAGEN PO SCH (09:56)
[2018-12-07] MEDS: ISENTRESS PO SCH ×2 (09:56→22:39)
[2018-12-07] MEDS: SODIUM CHLORIDE FLUSH SYRINGE 10 ML IV SCH ×2 (09:57→22:40)
[2018-12-07] MEDS: EPIVIR PO SCH (09:57)
--- NOTE | 2018-12-07 10:14 | Progress Note ---
Assessment and Plan 73 y/o male who presents with altered mental state, hypothermia, renal failure and hypernatremia and trop leak 1. Resp-Continue daily PSV trials. If no apnea today, could consider a trial of extubation. 2. Neuro-Unsure of baseline mental state. Is improved compared to my last evaluation. LP negative. Please see number 1 3. ID-last day of Cefepime today 4. Renal-Appears to be chronic renal failure when reviewing labs from before. Improved and stable 5. Electrolytes- Will defer to nephrology as they are following. 6. Overall prognosis is guarded to poor. Patient is likely a poor candidate for HD given other comorbid disease. Family has not been present at bedside to discuss further options but really need to have a family meeting and discuss goals of care and skilled nursing prognosis. May do a trial of extubation soon. CCT 31 minutes. Subjective Date of service: 12/07/18 Principal diagnosis: low plt Interval history: No acute events. Opens eyes easily when you call his name but will not follow any commands. BP stable. NO CONTINUOUS SEDATION and has not been on any for several days now. Objective Vital Signs - 12hr 12/06/18 12/06/18 12/06/18 23:00 23:13 23:38 Temperature 97.8 F Pulse Rate 116 H 102 H Pulse Rate [ Apical] Respiratory 20 Rate Blood Pressure 107/77 107/77 O2 Sat by Pulse 99 100 Oximetry 12/07/18 12/07/18 12/07/18 00:00 01:00 02:00 Temperature Pulse Rate 110 H 113 H 118 H Pulse Rate [ 114 H Apical] Respiratory 20 18 20 Rate Blood Pressure 110/67 120/74 113/80 O2 Sat by Pulse 98 99 99 Oximetry 12/07/18 12/07/18 12/07/18 03:00 03:42 04:00 Temperature 98.8 F Pulse Rate 116 H 102 H 122 H Pulse Rate [ 114 H Apical] Respiratory 21 21 Rate Blood Pressure 112/69 112/69 112/63 O2 Sat by Pulse 98 99 99 Oximetry 12/07/18 12/07/18 12/07/18 05:00 06:00 07:37 Temperature 98.3 F Pulse Rate 115 H 114 H Pulse Rate [ Apical] Respiratory 23 21 Rate Blood Pressure 111/76 118/81 O2 Sat by Pulse 99 100 Oximetry Constitutional: other (critically ill on vent, awake, eyes open) Eyes: non-icteric ENT: oropharynx moist, other (intubated) Neck: supple Effort: normal Ascultation: Bilateral: clear, diminished breath sounds, rhonchi Percussion: Bilateral: not dull Cardiovascular: other (tachy, RR; no mrg) Gastrointestinal: normoactive bowel sounds, soft, non-tender, non-distended Extremities: no cyanosis, no edema, pink and warm Neurologic: other (eyes open, not following commands for me) Psychiatric: other (unable to assess) CBC and BMP: 12/07/18 02:40 12/07/18 02:40 ABG, PT/INR, D-dimer: ABG POC ABG pH 7.437 (7.35-7.45) 12/04/18 03:48 ABG pH 7.431 pH Units (7.350-7.450) 12/06/18 04:44 ABG pCO2 32.1 mm Hg 12/06/18 04:44 POC ABG pO2 82 (80-105) 12/04/18 03:48 ABG pO2 87.2 mm Hg (80.0-90.0) 12/06/18 04:44 POC ABG HCO3 19.3 (22-26 mml/L) 12/04/18 03:48 POC ABG Total CO2 20 (23-27mmol/L) 12/04/18 03:48 POC ABG O2 Sat 97 12/04/18 03:48 ABG O2 Saturation 97.2 % (95.0-99.0) 12/06/18 04:44 PT/INR, D-dimer PT 17.0 Sec. (12.2-14.9) H 12/04/18 08:01 INR 1.42 (0.87-1.13) H 12/04/18 08:01 Abnormal lab findings: Abnormal Labs 11/29/18 11/29/18 11/29/18 13:07 13:39 13:39 WBC 3.2 L RBC 2.76 L Hgb 10.4 L Hct 32.1 L MCV 116 H MCH 38 H RDW 17.5 H Plt Count 48 L Lymph % (Auto) 5.4 L Lymph # 0.2 L Seg Neutrophils % 89.5 H Seg Neuts % (Manual) Lymphocytes % (Manual) Lymphocytes # (Manual) PT INR POC ABG pH POC ABG pO2 ABG pO2 ABG HCO3 ABG O2 Saturation ABG Base Excess ABG Hemoglobin VBG pH Oxyhemoglobin Sodium 153 H Potassium Chloride 113.3 H Carbon Dioxide 21 L BUN 55 H Creatinine 2.4 H Glucose 260 H POC Glucose 289 H Calcium Iron TIBC AST 68 H Alkaline Phosphatase 239 H Total Creatine Kinase 243 H Troponin T 0.054 H Total Protein 5.8 L Albumin 3.0 L LDL Cholesterol Direct 30 L HDL Cholesterol 63 H Vitamin B12 Folate Urine Creatinine Salicylates Acetaminophen 11/29/18 11/29/18 11/29/18 13:39 13:39 13:39 WBC RBC Hgb Hct MCV MCH RDW Plt Count Lymph % (Auto) Lymph # Seg Neutrophils % Seg Neuts % (Manual) Lymphocytes % (Manual) Lymphocytes # (Manual) PT INR POC ABG pH POC ABG pO2 ABG pO2 ABG HCO3 ABG O2 Saturation ABG Base Excess ABG Hemoglobin VBG pH 7.186 L* Oxyhemoglobin Sodium Potassium Chloride Carbon Dioxide BUN Creatinine Glucose POC Glucose Calcium Iron TIBC AST Alkaline Phosphatase Total Creatine Kinase Troponin T Total Protein Albumin LDL Cholesterol Direct HDL Cholesterol Vitamin B12 Folate Urine Creatinine Salicylates < 0.3 L Acetaminophen < 5.0 L 11/29/18 11/29/18 11/30/18 14:24 21:17 05:50 WBC RBC Hgb Hct MCV MCH RDW Plt Count Lymph % (Auto) Lymph # Seg Neutrophils % Seg Neuts % (Manual) Lymphocytes % (Manual) Lymphocytes # (Manual) PT INR POC ABG pH 7.319 L POC ABG pO2 126 H ABG pO2 203.3 H ABG HCO3 18.5 L ABG O2 Saturation 99.3 H ABG Base Excess -6.2 L ABG Hemoglobin 10.9 L VBG pH Oxyhemoglobin Sodium Potassium Chloride Carbon Dioxide BUN Creatinine Glucose POC Glucose 242 H Calcium Iron TIBC AST Alkaline Phosphatase Total Creatine Kinase Troponin T Total Protein Albumin LDL Cholesterol Direct HDL Cholesterol Vitamin B12 Folate Urine Creatinine Salicylates Acetaminophen 11/30/18 11/30/18 11/30/18 08:52 10:31 10:58 WBC RBC 3.05 L Hgb 11.5 L Hct 35.3 L MCV 116 H MCH 38 H RDW 17.2 H Plt Count 43 L Lymph % (Auto) Lymph # Seg Neutrophils % Seg Neuts % (Manual) Lymphocytes % (Manual) Lymphocytes # (Manual) PT INR POC ABG pH POC ABG pO2 ABG pO2 ABG HCO3 ABG O2 Saturation ABG Base Excess ABG Hemoglobin VBG pH Oxyhemoglobin Sodium 153 H Potassium Chloride 117.2 H Carbon Dioxide 18 L BUN 60 H Creatinine 2.8 H Glucose 216 H POC Glucose 234 H Calcium 8.2 L Iron TIBC AST Alkaline Phosphatase Total Creatine Kinase Troponin T Total Protein Albumin LDL Cholesterol Direct HDL Cholesterol Vitamin B12 Folate Urine Creatinine Salicylates Acetaminophen 11/30/18 11/30/18 11/30/18 12:40 14:20 17:35 WBC RBC Hgb Hct MCV MCH RDW Plt Count Lymph % (Auto) Lymph # Seg Neutrophils % Seg Neuts % (Manual) Lymphocytes % (Manual) Lymphocytes # (Manual) PT INR POC ABG pH POC ABG pO2 ABG pO2 ABG HCO3 ABG O2 Saturation ABG Base Excess ABG Hemoglobin VBG pH Oxyhemoglobin Sodium Potassium Chloride Carbon Dioxide BUN Creatinine Glucose POC Glucose 235 H 182 H Calcium Iron TIBC AST Alkaline Phosphatase Total Creatine Kinase Troponin T Total Protein Albumin LDL Cholesterol Direct HDL Cholesterol Vitamin B12 Folate Urine Creatinine 173.8 H Salicylates Acetaminophen 11/30/18 12/01/18 12/01/18 23:53 04:08 04:08 WBC RBC 3.11 L Hgb 11.7 L Hct 35.3 L MCV 113 H MCH 38 H RDW 16.9 H Plt Count 43 L Lymph % (Auto) Lymph # Seg Neutrophils % Seg Neuts % (Manual) Lymphocytes % (Manual) Lymphocytes # (Manual) PT INR POC ABG pH POC ABG pO2 ABG pO2 ABG HCO3 ABG O2 Saturation ABG Base Excess ABG Hemoglobin VBG pH Oxyhemoglobin Sodium 150 H Potassium Chloride 114.6 H Carbon Dioxide 16 L BUN 67 H Creatinine 2.9 H Glucose 193 H POC Glucose 149 H Calcium 8.2 L Iron TIBC AST Alkaline Phosphatase Total Creatine Kinase Troponin T Total Protein Albumin LDL Cholesterol Direct HDL Cholesterol Vitamin B12 Folate Urine Creatinine Salicylates Acetaminophen 12/01/18 12/01/18 12/01/18 04:55 05:11 13:33 WBC RBC Hgb Hct MCV MCH RDW Plt Count Lymph % (Auto) Lymph # Seg Neutrophils % Seg Neuts % (Manual) Lymphocytes % (Manual) Lymphocytes # (Manual) PT INR POC ABG pH POC ABG pO2 ABG pO2 91.9 H ABG HCO3 17.7 L ABG O2 Saturation ABG Base Excess -6.1 L ABG Hemoglobin 11.5 L VBG pH Oxyhemoglobin Sodium Potassium Chloride Carbon Dioxide BUN Creatinine Glucose POC Glucose 236 H 255 H Calcium Iron TIBC AST Alkaline Phosphatase Total Creatine Kinase Troponin T Total Protein Albumin LDL Cholesterol Direct HDL Cholesterol Vitamin B12 Folate Urine Creatinine Salicylates Acetaminophen 12/01/18 12/02/18 12/02/18 18:20 00:17 03:40 WBC RBC Hgb Hct MCV MCH RDW Plt Count Lymph % (Auto) Lymph # Seg Neutrophils % Seg Neuts % (Manual) Lymphocytes % (Manual) Lymphocytes # (Manual) PT INR POC ABG pH POC ABG pO2 ABG pO2 78.0 L ABG HCO3 16.4 L ABG O2 Saturation ABG Base Excess -6.2 L ABG Hemoglobin 11.4 L VBG pH Oxyhemoglobin 94.5 L Sodium Potassium Chloride Carbon Dioxide BUN Creatinine Glucose POC Glucose 177 H 192 H Calcium Iron TIBC AST Alkaline Phosphatase Total Creatine Kinase Troponin T Total Protein Albumin LDL Cholesterol Direct HDL Cholesterol Vitamin B12 Folate Urine Creatinine Salicylates Acetaminophen 12/02/18 12/02/18 12/02/18 05:11 05:26 07:50 WBC 4.1 L RBC 3.01 L Hgb 11.4 L Hct 34.1 L MCV 113 H MCH 38 H RDW 17.3 H Plt Count 40 L Lymph % (Auto) Lymph # Seg Neutrophils % Seg Neuts % (Manual) Lymphocytes % (Manual) Lymphocytes # (Manual) PT INR POC ABG pH POC ABG pO2 ABG pO2 ABG HCO3 ABG O2 Saturation ABG Base Excess ABG Hemoglobin VBG pH Oxyhemoglobin Sodium Potassium 5.6 H D Chloride 113.0 H Carbon Dioxide 16 L BUN 73 H Creatinine 2.8 H Glucose 202 H POC Glucose 179 H Calcium Iron TIBC AST Alkaline Phosphatase Total Creatine Kinase Troponin T Total Protein Albumin LDL Cholesterol Direct HDL Cholesterol Vitamin B12 Folate Urine Creatinine Salicylates Acetaminophen 12/02/18 12/02/18 12/02/18 11:57 18:40 18:43 WBC RBC Hgb Hct MCV MCH RDW Plt Count Lymph % (Auto) Lymph # Seg Neutrophils % Seg Neuts % (Manual) Lymphocytes % (Manual) Lymphocytes # (Manual) PT INR POC ABG pH POC ABG pO2 ABG pO2 ABG HCO3 ABG O2 Saturation ABG Base Excess ABG Hemoglobin VBG pH Oxyhemoglobin Sodium Potassium Chloride Carbon Dioxide BUN Creatinine Glucose POC Glucose 140 H 286 H 261 H Calcium Iron TIBC AST Alkaline Phosphatase Total Creatine Kinase Troponin T Total Protein Albumin LDL Cholesterol Direct HDL Cholesterol Vitamin B12 Folate Urine Creatinine Salicylates Acetaminophen 12/02/18 12/03/18 12/03/18 23:55 04:06 04:06 WBC 4.4 L RBC 2.96 L Hgb 11.3 L Hct 33.1 L MCV 112 H MCH 38 H RDW 16.7 H Plt Count 38 L Lymph % (Auto) Lymph # Seg Neutrophils % Seg Neuts % (Manual) Lymphocytes % (Manual) Lymphocytes # (Manual) PT INR POC ABG pH POC ABG pO2 ABG pO2 ABG HCO3 ABG O2 Saturation ABG Base Excess ABG Hemoglobin VBG pH Oxyhemoglobin Sodium 146 H Potassium Chloride 112.5 H Carbon Dioxide 18 L BUN 71 H Creatinine 2.5 H Glucose 258 H POC Glucose 303 H Calcium 8.3 L Iron TIBC AST Alkaline Phosphatase Total Creatine Kinase Troponin T Total Protein Albumin LDL Cholesterol Direct HDL Cholesterol Vitamin B12 Folate Urine Creatinine Salicylates Acetaminophen 12/03/18 12/03/18 12/03/18 05:17 11:25 17:46 WBC RBC Hgb Hct MCV MCH RDW Plt Count Lymph % (Auto) Lymph # Seg Neutrophils % Seg Neuts % (Manual) Lymphocytes % (Manual) Lymphocytes # (Manual) PT INR POC ABG pH POC ABG pO2 ABG pO2 ABG HCO3 ABG O2 Saturation ABG Base Excess ABG Hemoglobin VBG pH Oxyhemoglobin Sodium Potassium Chloride Carbon Dioxide BUN Creatinine Glucose POC Glucose 328 H 288 H 202 H Calcium Iron TIBC AST Alkaline Phosphatase Total Creatine Kinase Troponin T Total Protein Albumin LDL Cholesterol Direct HDL Cholesterol Vitamin B12 Folate Urine Creatinine Salicylates Acetaminophen 12/04/18 12/04/18 12/04/18 01:15 05:47 08:01 WBC RBC 3.11 L Hgb 11.7 L Hct MCV 115 H MCH 38 H RDW 17.6 H Plt Count 35 L Lymph % (Auto) 6.9 L Lymph # 0.3 L Seg Neutrophils % 87.7 H Seg Neuts % (Manual) Lymphocytes % (Manual) Lymphocytes # (Manual) PT INR POC ABG pH POC ABG pO2 ABG pO2 ABG HCO3 ABG O2 Saturation ABG Base Excess ABG Hemoglobin VBG pH Oxyhemoglobin Sodium Potassium Chloride Carbon Dioxide BUN Creatinine Glucose POC Glucose 282 H 265 H Calcium Iron TIBC AST Alkaline Phosphatase Total Creatine Kinase Troponin T Total Protein Albumin LDL Cholesterol Direct HDL Cholesterol Vitamin B12 Folate Urine Creatinine Salicylates Acetaminophen 12/04/18 12/04/18 12/04/18 08:01 08:01 08:01 WBC RBC Hgb Hct MCV MCH RDW Plt Count Lymph % (Auto) Lymph # Seg Neutrophils % Seg Neuts % (Manual) Lymphocytes % (Manual) Lymphocytes # (Manual) PT 17.0 H INR 1.42 H POC ABG pH POC ABG pO2 ABG pO2 ABG HCO3 ABG O2 Saturation ABG Base Excess ABG Hemoglobin VBG pH Oxyhemoglobin Sodium Potassium Chloride 114.6 H Carbon Dioxide 20 L BUN 62 H Creatinine 2.0 H Glucose 266 H POC Glucose Calcium 8.3 L Iron 20 L TIBC 168 L AST Alkaline Phosphatase 292 H Total Creatine Kinase Troponin T Total Protein 5.2 L Albumin 2.1 L LDL Cholesterol Direct HDL Cholesterol Vitamin B12 Folate 7.24 L Urine Creatinine Salicylates Acetaminophen 12/04/18 12/04/18 12/04/18 11:59 17:59 22:59 WBC RBC Hgb Hct MCV MCH RDW Plt Count Lymph % (Auto) Lymph # Seg Neutrophils % Seg Neuts % (Manual) Lymphocytes % (Manual) Lymphocytes # (Manual) PT INR POC ABG pH POC ABG pO2 ABG pO2 ABG HCO3 ABG O2 Saturation ABG Base Excess ABG Hemoglobin VBG pH Oxyhemoglobin Sodium Potassium Chloride Carbon Dioxide BUN Creatinine Glucose POC Glucose 267 H 226 H 341 H Calcium Iron TIBC AST Alkaline Phosphatase Total Creatine Kinase Troponin T Total Protein Albumin LDL Cholesterol Direct HDL Cholesterol Vitamin B12 Folate Urine Creatinine Salicylates Acetaminophen 12/05/18 12/05/18 12/05/18 03:42 03:42 03:42 WBC RBC 2.89 L Hgb 10.8 L Hct 32.2 L MCV 111 H MCH 37 H RDW 16.8 H Plt Count 47 L Lymph % (Auto) 5.5 L Lymph # 0.3 L Seg Neutrophils % 89.9 H Seg Neuts % (Manual) Lymphocytes % (Manual) Lymphocytes # (Manual) PT INR POC ABG pH POC ABG pO2 ABG pO2 ABG HCO3 ABG O2 Saturation ABG Base Excess ABG Hemoglobin VBG pH Oxyhemoglobin Sodium 146 H Potassium Chloride 113.3 H Carbon Dioxide 19 L BUN 55 H Creatinine 1.8 H Glucose 268 H POC Glucose Calcium 8.3 L Iron TIBC AST Alkaline Phosphatase Total Creatine Kinase Troponin T Total Protein Albumin LDL Cholesterol Direct HDL Cholesterol Vitamin B12 1798 H Folate Urine Creatinine Salicylates Acetaminophen 12/05/18 12/05/18 12/05/18 04:14 18:38 23:59 WBC RBC Hgb Hct MCV MCH RDW Plt Count Lymph % (Auto) Lymph # Seg Neutrophils % Seg Neuts % (Manual) Lymphocytes % (Manual) Lymphocytes # (Manual) PT INR POC ABG pH POC ABG pO2 ABG pO2 75.1 L ABG HCO3 ABG O2 Saturation ABG Base Excess -4.0 L ABG Hemoglobin 8.2 L VBG pH Oxyhemoglobin 94.0 L Sodium Potassium Chloride Carbon Dioxide BUN Creatinine Glucose POC Glucose 150 H 215 H Calcium Iron TIBC AST Alkaline Phosphatase Total Creatine Kinase Troponin T Total Protein Albumin LDL Cholesterol Direct HDL Cholesterol Vitamin B12 Folate Urine Creatinine Salicylates Acetaminophen 12/06/18 12/06/18 12/06/18 04:02 04:02 04:44 WBC RBC 2.88 L Hgb 10.6 L Hct 32.8 L MCV 114 H MCH 37 H RDW 17.3 H Plt Count 59 L Lymph % (Auto) 7.1 L Lymph # 0.4 L Seg Neutrophils % 87.9 H Seg Neuts % (Manual) Lymphocytes % (Manual) Lymphocytes # (Manual) PT INR POC ABG pH POC ABG pO2 ABG pO2 ABG HCO3 ABG O2 Saturation ABG Base Excess -2.7 L ABG Hemoglobin 10.5 L VBG pH Oxyhemoglobin 94.7 L Sodium 146 H Potassium Chloride 111.9 H Carbon Dioxide 21 L BUN 52 H Creatinine 1.7 H Glucose 254 H POC Glucose Calcium 8.3 L Iron TIBC AST Alkaline Phosphatase Total Creatine Kinase Troponin T Total Protein Albumin LDL Cholesterol Direct HDL Cholesterol Vitamin B12 Folate Urine Creatinine Salicylates Acetaminophen 12/06/18 12/06/18 12/06/18 05:59 12:08 17:52 WBC RBC Hgb Hct MCV MCH RDW Plt Count Lymph % (Auto) Lymph # Seg Neutrophils % Seg Neuts % (Manual) Lymphocytes % (Manual) Lymphocytes # (Manual) PT INR POC ABG pH POC ABG pO2 ABG pO2 ABG HCO3 ABG O2 Saturation ABG Base Excess ABG Hemoglobin VBG pH Oxyhemoglobin Sodium Potassium Chloride Carbon Dioxide BUN Creatinine Glucose POC Glucose 270 H 119 H 158 H Calcium Iron TIBC AST Alkaline Phosphatase Total Creatine Kinase Troponin T Total Protein Albumin LDL Cholesterol Direct HDL Cholesterol Vitamin B12 Folate Urine Creatinine Salicylates Acetaminophen 12/07/18 12/07/18 12/07/18 00:00 02:40 02:40 WBC RBC 2.78 L Hgb 10.2 L Hct 31.5 L MCV 113 H MCH 37 H RDW 16.7 H Plt Count 57 L Lymph % (Auto) Lymph # Seg Neutrophils % Seg Neuts % (Manual) 99.0 H Lymphocytes % (Manual) 1.0 L Lymphocytes # (Manual) 0.1 L PT INR POC ABG pH POC ABG pO2 ABG pO2 ABG HCO3 ABG O2 Saturation ABG Base Excess ABG Hemoglobin VBG pH Oxyhemoglobin Sodium 147 H Potassium 3.4 L Chloride 111.6 H Carbon Dioxide 19 L BUN 50 H Creatinine 1.6 H Glucose 243 H POC Glucose 203 H Calcium Iron TIBC AST Alkaline Phosphatase Total Creatine Kinase Troponin T Total Protein Albumin LDL Cholesterol Direct HDL Cholesterol Vitamin B12 Folate Urine Creatinine Salicylates Acetaminophen 12/07/18 05:27 WBC RBC Hgb Hct MCV MCH RDW Plt Count Lymph % (Auto) Lymph # Seg Neutrophils % Seg Neuts % (Manual) Lymphocytes % (Manual) Lymphocytes # (Manual) PT INR POC ABG pH POC ABG pO2 ABG pO2 ABG HCO3 ABG O2 Saturation ABG Base Excess ABG Hemoglobin VBG pH Oxyhemoglobin Sodium Potassium Chloride Carbon Dioxide BUN Creatinine Glucose POC Glucose 299 H Calcium Iron TIBC AST Alkaline Phosphatase Total Creatine Kinase Troponin T Total Protein Albumin LDL Cholesterol Direct HDL Cholesterol Vitamin B12 Folate Urine Creatinine Salicylates Acetaminophen
--- NOTE | 2018-12-07 11:07 | Progress Note ---
Assessment and Plan 1. Acute kidney injury: Vasomotor CONNIE superimposed on CKD in the setting of hypotension. Renal US negative for hydro. Continue IV fluids. Renal function is improving. Monitor renal function. Renal prognosis is guarded. Avoid nephrotoxic agents. Meds dosage based on GFR. 2. FEN: Hyperkalemia, improved. Hypernatremia, continue free water flushes. Monitor lytes. 3. Acute hypoxic respiratory failure: Intubated on vent. 4. Acute Metabolic Encephalopathy. 5. Elevated troponin. 6. Macrocytic anemia: POA. Low Folate, continue Folic acid. 7. Type 2 DM. Subjective Date of service: 12/07/18 Principal diagnosis: low plt Interval history: Patient was seen and examined at the bedside. Objective - Vital Signs Vital signs: Vital Signs - 12hr 12/06/18 12/06/18 12/07/18 23:13 23:38 00:00 Temperature 97.8 F Pulse Rate 102 H 110 H Pulse Rate [ 114 H Apical] Respiratory 20 Rate Respiratory Rate [Anterior Abdomen] Blood Pressure 107/77 110/67 O2 Sat by Pulse 100 98 Oximetry 12/07/18 12/07/18 12/07/18 01:00 02:00 03:00 Temperature Pulse Rate 113 H 118 H 116 H Pulse Rate [ Apical] Respiratory 18 20 21 Rate Respiratory Rate [Anterior Abdomen] Blood Pressure 120/74 113/80 112/69 O2 Sat by Pulse 99 99 98 Oximetry 12/07/18 12/07/18 12/07/18 03:42 04:00 05:00 Temperature 98.8 F Pulse Rate 102 H 122 H 115 H Pulse Rate [ 114 H Apical] Respiratory 21 23 Rate Respiratory Rate [Anterior Abdomen] Blood Pressure 112/69 112/63 111/76 O2 Sat by Pulse 99 99 99 Oximetry 12/07/18 12/07/18 12/07/18 06:00 07:00 07:37 Temperature 98.3 F Pulse Rate 114 H 116 H Pulse Rate [ Apical] Respiratory 21 23 Rate Respiratory Rate [Anterior Abdomen] Blood Pressure 118/81 117/78 O2 Sat by Pulse 100 99 Oximetry 12/07/18 12/07/18 12/07/18 08:00 09:00 09:50 Temperature Pulse Rate 117 H 115 H 115 H Pulse Rate [ 117 H Apical] Respiratory 23 24 20 Rate Respiratory Rate [Anterior Abdomen] Blood Pressure 118/81 112/80 114/77 O2 Sat by Pulse 99 99 100 Oximetry 12/07/18 10:00 Temperature Pulse Rate 119 H Pulse Rate [ Apical] Respiratory 23 Rate Respiratory 22 Rate [Anterior Abdomen] Blood Pressure 114/77 O2 Sat by Pulse 96 Oximetry - General Appearance General appearance: well-developed, appears stated age, intubated, other (on vent) EENT: ATNC, PERRL Neck: supple Respiratory: Present: Clear to Ascultation Cardiology: tachycardia, S1S2 Gastrointestinal: normoactive bowel sounds, no tenderness, no distended Integumentary: warm and dry, other (b/l LE dressing) Neurologic: other (opens eyes) Musculoskeletal: other (no edema) - Lab 12/07/18 02:40 12/07/18 02:40 Most recent lab results ABG pH 7.431 pH Units (7.350-7.450) 12/06/18 04:44 ABG pCO2 32.1 mm Hg 12/06/18 04:44 ABG pO2 87.2 mm Hg (80.0-90.0) 12/06/18 04:44 ABG HCO3 20.9 mmol/L (20.0-26.0) 12/06/18 04:44 ABG O2 Saturation 97.2 % (95.0-99.0) 12/06/18 04:44 Calcium 8.4 mg/dL (8.4-10.2) 12/07/18 02:40 Phosphorus 2.80 mg/dL (2.5-4.5) 12/04/18 08:01 Magnesium 2.10 mg/dL (1.7-2.3) 12/04/18 08:01 173.8 mg/dL (0.1-20.0) H 11/30/18 14:20 18 mmol/L 11/30/18 14:20 Medications & Allergies - Medications Allergies/Adverse Reactions: Allergies No Known Allergies Allergy (Unverified 03/29/16 00:43) Home Medications: Home Medications Medication Instructions Recorded Confirmed Last Taken Type Aspirin [Aspirin BABY CHEW TAB] 81 mg PO QDAY #30 tab.chew 11/15/17 11/29/18 Unknown Rx Amlodipine Besylate 10 mg PO QDAY 05/21/18 11/29/18 Unknown History Carvedilol 6.25 mg PO BID 05/21/18 11/29/18 Unknown History Isentress 400 mg PO Q12HR 05/21/18 11/29/18 Unknown History Rosuvastatin Calcium 10 mg PO DAILY 05/21/18 11/29/18 Unknown History Memantine [Namenda] 5 mg PO QDAY #30 tablet 11/01/18 11/29/18 Unknown Rx Albuterol Sulfate [Albuterol 0.63% 0.63 mg IH TID PRN 30 Days ml 11/07/18 11/29/18 Unknown Rx NEBS] AtorvaSTATin [Lipitor] 20 mg PO QDAY #30 tablet 11/07/18 11/29/18 Unknown Rx Famotidine [Pepcid] 10 mg PO BID #60 tablet 11/07/18 11/29/18 Unknown Rx Ipratropium/Albuterol Sulfate 1 ampul IH Q6HR 30 Days ampul.neb 11/07/18 11/29/18 Unknown Rx [DUONEB *Not for PRN Use*] Tamsulosin [Flomax] 0.4 mg PO QHS #30 capsule 11/07/18 11/29/18 Unknown Rx Zidovudine 300 mg PO DAILY 11/09/18 11/29/18 Unknown History Insulin Regular, Human [HumuLIN R] 0 unit SQ AC #1 vial 11/12/18 11/29/18 Unknown Rx Active Medications: Generic Name Dose Route Start Last Admin Trade Name Freq PRN Reason Stop Dose Admin Abacavir Sulfate 600 mg 11/30/18 16:00 12/07/18 09:56 Ziagen PO 600 mg DAILY KEN Administration Albuterol 2.5 mg 11/30/18 00:17 Proventil IH Q4HRT PRN Shortness Of Breath Albuterol/Ipratropium 1 ampul 11/30/18 08:00 12/07/18 09:50 Duoneb *Not For Prn Use* IH 1 ampul QIDRT KEN Administration Lipase/Protease/Amylase 1 each 12/03/18 10:42 Harleen Manning 10,500 Unit FEEDTUBE PRN PRN For Clogged Feeding Tube Famotidine 10 mg 12/04/18 11:00 12/07/18 09:55 Pepcid PO 10 mg BID KEN Administration Fentanyl 50 mcg 12/04/18 17:28 12/05/18 03:01 Sublimaze IV 50 mcg Q2H PRN Administration INCREASED AGITATION Folic Acid 1 mg 12/04/18 12:00 12/07/18 09:55 Folvite PO 1 mg QDAY KEN Administration Cefepime HCl 2 gm in 100 mls @ 200 mls/hr 11/30/18 22:00 12/06/18 21:08 Maxipime/Ns 2 Gm/100 Ml IV 200 mls/hr Q24H KEN Administration Protocol Insulin Human Lispro 0 unit 11/30/18 07:00 12/07/18 07:20 Humalog SUB-Q 4 unit Q6HR KEN Administration Protocol Lamivudine 150 mg 12/06/18 10:00 12/07/18 09:57 Epivir PO 150 mg DAILY KEN Administration Metoclopramide HCl 5 mg 11/30/18 00:22 Reglan IV Q6H PRN Nausea And Vomiting Ondansetron HCl 4 mg 11/30/18 00:06 Zofran IV Q8H PRN Nausea And Vomiting Raltegravir 400 mg 11/30/18 16:00 12/07/18 09:56 Isentress PO 400 mg BID KEN Administration Simple Syrup 15 ml 12/03/18 10:42 Simple Syrup FEEDTUBE PRN PRN Hypoglycemia Simple Syrup 30 ml 12/03/18 10:42 Simple Syrup FEEDTUBE PRN PRN Hypoglycemia Sodium Bicarbonate 325 mg 12/03/18 10:42 Sodium Bicarbonate FEEDTUBE PRN PRN For Clogged Feeding Tube Sodium Chloride 10 ml 11/30/18 10:00 12/07/18 09:57 Sodium Chloride Flush Syringe 10 Ml IV 10 ml BID KEN Administration Sodium Chloride 10 ml 11/30/18 00:06 Sodium Chloride Flush Syringe 10 Ml IV PRN PRN LINE FLUSH Zidovudine 300 mg 11/30/18 16:00 12/07/18 09:55 Retrovir PO 300 mg BID KEN Administration
[2018-12-07] MEDS: MAXIPIME/NS 2 GM/100 ML 2 GM/100 ML BAG IV SCH (22:40)
[2018-12-07] MEDS ORDERED: POTASSIUM CHLORIDE FEEDTUBE ONE (23:00)
[2018-12-08] MEDS: HumaLOG SUB-Q SCH ×4 (00:38→17:50)
[2018-12-08 04:34] LABS: Calcium 8.4 mg/dL (8.4-10.2)
--- NOTE | 2018-12-08 07:13 | Progress Note ---
Assessment and Plan Assessment and plan: Patient is a 73 yo man from [facility] with severe end-stage co-morbities including HIV, type 2 DM, NSTEMI type 2, hyperkalemia, hypernatremia, malnutrition, severe CHF with EF 15-20%, Dementia, CVA with SAH after fall here at [facility] on 05/22/18 with transferred to [facility], recurrent bouts of hypog lycmia, who had been admitted 3 times this month of November 2018. Initially he was admitted on 10/24/18 to 11/01/18 due to AMS, new CVA was ruled out by MRI but did show chronic infarcts in the right parietal lobe and the right MCA SENIOR JAVA ARCHITECT watershed territory and chronic lacunar infarct in the right paracentral [place] area. It was recommended that patient go to SNF but refused and took him home. He returned 2 days later due to hypoglycemia, it appears he wasn't eating enough but still taking DM medications. He was then discharged to [facility] on 11/07/2018. He returned 2 days later on 11/09/2018 due to hypoxemia and hypoglycemia again. He was discharged back to the [facility] on . Now he returns to the ED on 11/29/18 with severe worsening AMS GCS of 5 requiring Intubation. I do not know why he is on Fentanyl drip. * CT head without contrast Impression: There is continued extensive microvascula r angiopathy as detailed...without CT evidence of acute ICH. * pCXR Impression: Minimal interstitial edema, ngt in stomach, needs advancing 5-10 cm, borderline cardiomegaly, no consolidation or effusion * Abd XRAY after NGT advancement, shows it is in the correct position Acute Metabolic Encephalopathy, poa, work up in progress: ? secondary to HIV, consulted Neurology, input noted,MRI still pending, LP negative Acute respiratory failure >96 hours poa s/p ETT placement: consulted Pulmonology, input noted- ON PS may consider extubation if tolerating SIRS with possible Sepsis: Continue cefepime, to complete today. ID following, awaiting cultures. Acute on chronic systolic heart failure (congestive heart failure) 15-20%, mild: treat medically, bp borderline too low for IV lasix, consulted Cardiology, input noted HIV (human immunodeficiency virus infection): ID consulted, input noted Acute renal insufficiency, ATN + vasomotor nephropathy, poa: monitor uop q shift, nephrology consulted, urine electrolytes, strict I/O, monitor uop q shift, monitor fluid balance, monitor serum creatnine, some improvement noted Type 2 DM on Insulin with recurrent hypoglycemia: treat with SSI, ADA Severe malnutrition, as evidence by decubitus ulcers, inadequate nutritional intake, and muscle wasting. poa: consult Lead Massage Therapist Decubitus ulcers at least stage 3: Consult wound care Hypernatremia: Likely from dehydration, treat with free water, monitor bmp c losely DVT prophylaxis: SCD to BLE while in bed, on d/c a/c Severe pancytopenia, plt count only 48: consulted Heme/onc Thrombocytopenia: Give a unit a plt Disposition: continue inpatient ICU care SIRS possible sepsis, poa - ID is following, negative blood cultures. Unclear s ource. CC-35 mins no family present poor prognosis History Interval history: Patient was seen and examined. Follow-up on current diagnosis of AMS. No overnight events reported to me. Imaging, nursing note, chart, labs and old chart reviewed. No family at bedside, patient opens eyes at verbal stimuli but not following any instruction, s/p lp Hospitalist Physical - Physical exam Narrative exam: Gen: cachetic, intubated and sedated on fentanyl drip HEENT: NCAT, pupils pinpoint Neck: supple, no adenopathy, no thyromegaly, CVS/Heart: RRR, normal S1S2, pulses present bilaterally Chest/Lungs: diminished BS, Symmetrical chest expansion, good air entry bilaterally GI/Abdomen: soft, NTND, good bowel sounds, no guarding or rebound /Bladder: no suprapubic tenderness, no CVA or paraspinal tenderness Extermity/Skin: ble edema MSK: intubated and sedated Neuro: intubated and sedated Psych: intubated and sedated - Constitutional Vitals: Temp Pulse Resp BP Pulse Ox 98.8 F 112 H 21 112/75 100 12/08/18 03:48 12/08/18 06:00 12/08/18 06:00 12/08/18 06:00 12/08/18 06:00 General appearance: Present: no acute distress, other (intubated on cpap) Results - Labs CBC & Chem 7: 12/07/18 02:40 12/08/18 03:43 Labs: Laboratory Last Values WBC 7.2 K/mm3 (4.5-11.0) 12/07/18 02:40 RBC 2.78 M/mm3 (3.65-5.03) L 12/07/18 02:40 Hgb 10.2 gm/dl (11.8-15.2) L 12/07/18 02:40 Hct 31.5 % (35.5-45.6) L 12/07/18 02:40 MCV 113 fl (84-94) H 12/07/18 02:40 MCH 37 pg (28-32) H 12/07/18 02:40 MCHC 32 % (32-34) 12/07/18 02:40 RDW 16.7 % (13.2-15.2) H 12/07/18 02:40 Plt Count 57 K/mm3 (140-440) L 12/07/18 02:40 Lymph % (Auto) 7.1 % (13.4-35.0) L 12/06/18 04:02 [place] % (Auto) 4.3 % (0.0-7.3) 12/06/18 04:02 Eos % (Auto) 0.6 % (0.0-4.3) 12/06/18 04:02 Baso % (Auto) 0.1 % (0.0-1.8) 12/06/18 04:02 Lymph # 0.4 K/mm3 (1.2-5.4) L 12/06/18 04:02 [place] # 0.3 K/mm3 (0.0-0.8) 12/06/18 04:02 Eos # 0.0 K/mm3 (0.0-0.4) 12/06/18 04:02 Baso # 0.0 K/mm3 (0.0-0.1) 12/06/18 04:02 Add Manual Diff Complete 12/07/18 02:40 Total Counted 100 12/07/18 02:40 Seg Neutrophils % Shipping Clerk Crating 12/07/18 02:40 Seg Neuts % (Manual) 99.0 % (40.0-70.0) H 12/07/18 02:40 0 % 12/07/18 02:40 1.0 % (13.4-35.0) L 12/07/18 02:40 Reactive Lymphs % (Man) 0 % 12/07/18 02:40 0 % (0.0-7.3) 12/07/18 02:40 0 % (0.0-4.3) 12/07/18 02:40 0 % (0.0-1.8) 12/07/18 02:40 0 % 12/07/18 02:40 0 % 12/07/18 02:40 0 % 12/07/18 02:40 0 % 12/07/18 02:40 Nucleated RBC % Not Reportable 12/07/18 02:40 Seg Neutrophils # 5.6 K/mm3 (1.8-7.7) 12/06/18 04:02 Seg Neutrophils # Man 7.1 K/mm3 (1.8-7.7) 12/07/18 02:40 Band Neutrophils # 0.0 K/mm3 12/07/18 02:40 0.1 K/mm3 (1.2-5.4) L 12/07/18 02:40 Abs React Lymphs (Man) 0.0 K/mm3 12/07/18 02:40 0.0 K/mm3 (0.0-0.8) 12/07/18 02:40 0.0 K/mm3 (0.0-0.4) 12/07/18 02:40 0.0 K/mm3 (0.0-0.1) 12/07/18 02:40 0.0 K/mm3 12/07/18 02:40 0.0 K/mm3 12/07/18 02:40 0.0 K/mm3 12/07/18 02:40 Blast Cells # 0.0 K/mm3 12/07/18 02:40 WBC Morphology Not Reportable 12/07/18 02:40 Hypersegmented Neuts Not Reportable 12/07/18 02:40 Hyposegmented Neuts Not Reportable 12/07/18 02:40 Hypogranular Neuts Not Reportable 12/07/18 02:40 Not Reportable 12/07/18 02:40 Not Reportable 12/07/18 02:40 Not Reportable 12/07/18 02:40 Not Reportable 12/07/18 02:40 Not Reportable 12/07/18 02:40 Not Reportable 12/07/18 02:40 Consistent w auto 12/07/18 02:40 Not Reportable 12/07/18 02:40 Plt Clumps, EDTA Not Reportable 12/07/18 02:40 Not Reportable 12/07/18 02:40 Not Reportable 12/07/18 02:40 Not Reportable 12/07/18 02:40 Plt Morphology Comment Not Reportable 12/07/18 02:40 RBC Morphology Not Reportable 12/07/18 02:40 Dimorphic RBCs Not Reportable 12/07/18 02:40 Not Reportable 12/07/18 02:40 Not Reportable 12/07/18 02:40 1+ 12/07/18 02:40 1+ 12/07/18 02:40 Not Reportable 12/07/18 02:40 1+ 12/07/18 02:40 Not Reportable 12/07/18 02:40 Not Reportable 12/07/18 02:40 Not Reportable 12/07/18 02:40 Not Reportable 12/07/18 02:40 Rare 12/07/18 02:40 Not Reportable 12/07/18 02:40 Not Reportable 12/07/18 02:40 Not Reportable 12/07/18 02:40 Not Reportable 12/07/18 02:40 Few 12/07/18 02:40 Not Reportable 12/07/18 02:40 Not Reportable 12/07/18 02:40 Few 12/07/18 02:40 Acanthocytes (Spur) Not Reportable 12/07/18 02:40 Rouleaux Not Reportable 12/07/18 02:40 Not Reportable 12/07/18 02:40 Not Reportable 12/07/18 02:40 Not Reportable 12/07/18 02:40 Not Reportable 12/07/18 02:40 Hem Pathologist Commnt No 12/07/18 02:40 PT 17.0 Sec. (12.2-14.9) H 12/04/18 08:01 INR 1.42 (0.87-1.13) H 12/04/18 08:01 APTT 36.4 Sec. (24.2-36.6) 12/04/18 08:01 POC ABG pH 7.437 (7.35-7.45) 12/04/18 03:48 ABG pH 7.431 pH Units (7.350-7.450) 12/06/18 04:44 POC ABG pCO2 39.5 (35-45) 11/29/18 14:24 ABG pCO2 32.1 mm Hg 12/06/18 04:44 POC ABG pO2 82 (80-105) 12/04/18 03:48 ABG pO2 87.2 mm Hg (80.0-90.0) 12/06/18 04:44 POC ABG HCO3 19.3 (22-26 mml/L) 12/04/18 03:48 ABG HCO3 20.9 mmol/L (20.0-26.0) 12/06/18 04:44 POC ABG Total CO2 20 (23-27mmol/L) 12/04/18 03:48 POC ABG O2 Sat 97 12/04/18 03:48 ABG O2 Saturation 97.2 % (95.0-99.0) 12/06/18 04:44 ABG O2 Content 14.1 (0.0-44) 12/06/18 04:44 POC ABG Base Excess -5 ((-2) - (+3)mmol/L) 12/04/18 03:48 ABG Base Excess -2.7 mmol/L (-2.0-3.0) L 12/06/18 04:44 ABG Hemoglobin 10.5 gm/dl (14.0-18.0) L 12/06/18 04:44 ABG Carboxyhemoglobin 2.1 % (0.0-5.0) 12/06/18 04:44 ABG Methemoglobin 0.5 % (0.0-1.5) 12/06/18 04:44 VBG pH 7.186 (7.320-7.420) L* 11/29/18 13:39 94.7 % (95.0-99.0) L 12/06/18 04:44 30 % 12/06/18 04:44 Sodium 143 mmol/L (137-145) 12/08/18 03:43 Potassium 4.1 mmol/L (3.6-5.0) D 12/08/18 03:43 Chloride 110.9 mmol/L (98-107) H 12/08/18 03:43 Carbon Dioxide 21 mmol/L (22-30) L 12/08/18 03:43 15 mmol/L 12/08/18 03:43 BUN 53 mg/dL (9-20) H 12/08/18 03:43 1.6 mg/dL (0.8-1.5) H 12/08/18 03:43 Estimated GFR 51 ml/min 12/08/18 03:43 33 % 12/08/18 03:43 Glucose 311 mg/dL (75-100) H 12/08/18 03:43 POC Glucose 363 (70-105) H 12/08/18 05:09 Lactic Acid 1.30 mmol/L (0.7-2.0) 11/29/18 14:42 Calcium 8.4 mg/dL (8.4-10.2) 12/08/18 03:43 Phosphorus 2.80 mg/dL (2.5-4.5) 12/04/18 08:01 Magnesium 2.10 mg/dL (1.7-2.3) 12/04/18 08:01 Iron 20 ug/dL (49-181) L 12/04/18 08:01 TIBC 168 mcg/dL (250-450) L 12/04/18 08:01 174.3 ng/mL (13.0-400.0) 12/04/18 08:01 0.50 mg/dL (0.1-1.2) 12/04/18 08:01 AST 24 units/L (5-40) 12/04/18 08:01 ALT 32 units/L (7-56) 12/04/18 08:01 292 units/L (35-129) H 12/04/18 08:01 28.0 umol/L (25-60) 11/29/18 13:39 243 units/L (55-170) H 11/29/18 13:39 0.054 ng/mL (0.00-0.029) H 11/29/18 13:39 5.2 g/dL (6.3-8.2) L 12/04/18 08:01 2.1 g/dL (3.9-5) L 12/04/18 08:01 0.7 % 12/04/18 08:01 Triglycerides 68 mg/dL (2-149) 11/29/18 13:39 Cholesterol 95 mg/dL (50-199) 11/29/18 13:39 30 mg/dL (50-130) L 11/29/18 13:39 63 mg/dL (40-59) H 11/29/18 13:39 1.50 % 11/29/18 13:39 Vitamin B12 1798 pg/mL (211-911) H 12/05/18 03:42 7.24 ng/mL (7.3-26.0) L 12/04/18 08:01 14.8 mcg/dL () 12/01/18 09:08 Yellow (Yellow) 11/29/18 13:16 Clear (Clear) 11/29/18 13:16 5.0 (5.0-7.0) 11/29/18 13:16 Ur Specific [place] 1.018 (1.003-1.030) 11/29/18 13:16 30 mg/dl mg/dL (Negative) 11/29/18 13:16 Neg mg/dL (Negative) 11/29/18 13:16 Neg mg/dL (Negative) 11/29/18 13:16 Neg (Negative) 11/29/18 13:16 Neg (Negative) 11/29/18 13:16 Neg (Negative) 11/29/18 13:16 < 2.0 mg/dL (<2.0) 11/29/18 13:16 Ur Leukocyte Esterase Neg (Negative) 11/29/18 13:16 5.0 /HPF (0.0-6.0) 11/29/18 13:16 2.0 /HPF (0.0-6.0) 11/29/18 13:16 1+ /HPF (Negative) 11/29/18 13:16 173.8 mg/dL (0.1-20.0) H 11/30/18 14:20 18 mmol/L 11/30/18 14:20 Clear 12/02/18 Unknown Colorless 12/02/18 Unknown 2 /mm3 (1-10) 12/02/18 Unknown 1 /mm3 (0-0) 12/02/18 Unknown CSF Seg Neutrophils 50.0 % (0-6) 12/02/18 Unknown 0 % (40-80) 12/02/18 Unknown CSF Reactive Lymphs 0 % 12/02/18 Unknown 50.0 % (15-45) 12/02/18 Unknown 0 % 12/02/18 Unknown 0 % 12/02/18 Unknown C 12/02/18 Unknown 122 mg/dL 12/02/18 Unknown 22 mg/dL 12/02/18 Unknown Nonreactive (Nonreactive) 12/02/18 Unknown Random Vancomycin 10.7 ug/mL (0-40.0) 12/01/18 13:20 Salicylates < 0.3 mg/dL (2.8-20.0) L 11/29/18 13:39 Presumptive negative 11/29/18 13:16 Presumptive negative 11/29/18 13:16 Acetaminophen < 5.0 ug/mL (10.0-30.0) L 11/29/18 13:39 Ur Barbiturates Screen Presumptive negative 11/29/18 13:16 Ur Phencyclidine Scrn Presumptive negative 11/29/18 13:16 Ur Amphetamines Screen Presumptive negative 11/29/18 13:16 U Benzodiazepines Scrn Presumptive negative 11/29/18 13:16 Presumptive negative 11/29/18 13:16 U Marijuana (THC) Screen Presumptive negative 11/29/18 13:16 Disclamer 11/29/18 13:16 Non-reactive (NonReactive) 12/01/18 04:08 RPR Nonreactive (Nonreactive) 12/02/18 17:04 Hepatitis A IgM Ab Non-reactive (NonReactive) 12/02/18 17:04 Hep Bs Antigen Non-reactive (Negative) 12/02/18 17:04 Hep B Core IgM Ab Non-reactive (NonReactive) 12/02/18 17:04 Non-reactive (NonReactive) 12/02/18 17:04 Flexitest 1 12/06/18 Unknown Blood Type B POSITIVE 12/06/18 04:02 Antibody Screen Negative 11/29/18 13:39 Active Medications - Current Medications Current Medications: Generic Name Dose Route Start Last Admin Trade Name Freq PRN Reason Stop Dose Admin Abacavir Sulfate 600 mg 11/30/18 16:00 12/07/18 09:56 Ziagen PO 600 mg DAILY KEN Administration Albuterol 2.5 mg 11/30/18 00:17 Proventil IH Q4HRT PRN Shortness Of Breath Albuterol/Ipratropium 1 ampul 11/30/18 08:00 12/07/18 19:50 Duoneb *Not For Prn Use* IH 1 ampul QIDRT KEN Administration Lipase/Protease/Amylase 1 each 12/03/18 10:42 Pancredavis Manning 10,500 Unit FEEDTUBE PRN PRN For Clogged Feeding Tube Famotidine 10 mg 12/04/18 11:00 12/07/18 22:40 Pepcid PO 10 mg BID KEN Administration Fentanyl 50 mcg 12/04/18 17:28 12/05/18 03:01 Sublimaze IV 50 mcg Q2H PRN Administration INCREASED AGITATION Folic Acid 1 mg 12/04/18 12:00 12/07/18 09:55 Folvite PO 1 mg QDAY KEN Administration Cefepime HCl 2 gm in 100 mls @ 200 mls/hr 11/30/18 22:00 12/07/18 22:40 Maxipime/Ns 2 Gm/100 Ml IV 200 mls/hr Q24H KEN Administration Protocol Insulin Human Lispro 0 unit 11/30/18 07:00 12/08/18 06:14 Humalog SUB-Q 10 unit Q6HR KEN Administration Protocol Lamivudine 150 mg 12/06/18 10:00 12/07/18 09:57 Epivir PO 150 mg DAILY KEN Administration Metoclopramide HCl 5 mg 11/30/18 00:22 Reglan IV Q6H PRN Nausea And Vomiting Ondansetron HCl 4 mg 11/30/18 00:06 Zofran IV Q8H PRN Nausea And Vomiting Raltegravir 400 mg 11/30/18 16:00 12/07/18 22:39 Isentress PO 400 mg BID KEN Administration Simple Syrup 15 ml 12/03/18 10:42 Simple Syrup FEEDTUBE PRN PRN Hypoglycemia Simple Syrup 30 ml 12/03/18 10:42 Simple Syrup FEEDTUBE PRN PRN Hypoglycemia Sodium Bicarbonate 325 mg 12/03/18 10:42 Sodium Bicarbonate FEEDTUBE PRN PRN For Clogged Feeding Tube Sodium Chloride 10 ml 11/30/18 10:00 12/07/18 22:40 Sodium Chloride Flush Syringe 10 Ml IV 10 ml BID KEN Administration Sodium Chloride 10 ml 11/30/18 00:06 Sodium Chloride Flush Syringe 10 Ml IV PRN PRN LINE FLUSH Zidovudine 300 mg 11/30/18 16:00 12/07/18 22:39 Retrovir PO 300 mg BID KEN Administration Nutrition/Malnutrition Assess - Dietary Evaluation Nutrition/Malnutrition Findings: Nutrition Notes Start: 11/30/18 08:33 Freq: Status: Active Protocol: Document 12/06/18 09:45 LM (Rec: 12/06/18 09:55 LM [email or web address]) Nutrition Notes Initial or Follow up Reassessment Current Diagnosis Acute Kidney Injury,COPD, Diabetes,Hypertension Other Pertinent Diagnosis dementia, HIV, AMS Current Diet NPO Labs/Tests BUN 44 Cr 2.0 BG 96 Na 146 Pertinent Medications Reviewed Height 6 ft 4 in Weight 84.6 kg Sharon Body Weight (kg) 91.81 BMI 22.6 Weight change and time frame Weight gain noted Subjective/Other Information TF not running at time of visit. Pt still NPO. Per nurse lumbar punture rescheduled for today due to thrombocytopenia. Percent of energy/protein needs met: 0%/0% Burn Absent Trauma Absent #1 Nutrition Diagnosis Inadequate oral intake Diagnosis Progress(for reassessment Continues documentation) Is patient on ventilator? Yes Is Patient Ambulatory and/or Out of Bed No REE-([facility]-confined to bed) 2030.084 Kcal/Kg value to use for calculation 27 Approximate Energy Requirements Using 2284 kcal/Kg Calculation Used for Recommendations Kcal/kg Additional Notes Protein: 95-158g (1.2-2g/kg) Fluids 1 ml/kcal or per Nutrition Intervention Change Diet Order: Restart TF Nutrition Support: Nepro with Carbsteady at 50ml/ hr Change Flush to 250 ml q4hr for hypernatremia when TF reordered Kcal 2,160 Protein (gm) 97 Fluid (mL) 872 Goal #1 TF restart/tolerance Goal #2 Meet at least 80% of energy and protein needs Anticipated Discharge Needs: Unable to determine at this time Follow-Up By: 12/08/18 Additional Comments F/U for TF restart/tolerance, Na labs
--- NOTE | 2018-12-08 08:09 | Progress Note ---
Assessment and Plan 1. Acute kidney injury: Vasomotor CONNIE superimposed on CKD in the setting of hypotension. Renal US negative for hydro. Renal function is better, around his baseline. Monitor renal function. Renal prognosis is guarded. Avoid nephrotoxic agents. Meds dosage based on GFR. 2. FEN: Hyperkalemia, improved. Hypernatremia, continue free water flushes. Monitor lytes. 3. Acute hypoxic respiratory failure: Intubated on vent. 4. Acute Metabolic Encephalopathy. 5. Elevated troponin. 6. Macrocytic anemia: POA. Low Folate, continue Folic acid. 7. Type 2 DM. Subjective Date of service: 12/08/18 Principal diagnosis: low plt Interval history: Patient was seen and examined at the bedside. Objective - Vital Signs Vital signs: Vital Signs - 12hr 12/07/18 12/07/18 12/07/18 20:13 20:35 21:00 Temperature Pulse Rate 117 H Pulse Rate [ 119 H Anterior Bilateral Throughout] Respiratory 22 21 Rate Respiratory 20 Rate [Anterior Bilateral Throughout] Blood Pressure 113/74 O2 Sat by Pulse 99 98 Oximetry 12/07/18 12/07/18 12/07/18 22:00 23:00 23:04 Temperature Pulse Rate 116 H 114 H 115 H Pulse Rate [ Anterior Bilateral Throughout] Respiratory 19 18 Rate Respiratory Rate [Anterior Bilateral Throughout] Blood Pressure 107/69 117/68 117/68 O2 Sat by Pulse 99 99 100 Oximetry 12/07/18 12/07/18 12/08/18 23:24 23:28 00:00 Temperature 98.1 F Pulse Rate 117 H 114 H Pulse Rate [ Anterior Bilateral Throughout] Respiratory 23 24 Rate Respiratory Rate [Anterior Bilateral Throughout] Blood Pressure 117/68 117/78 O2 Sat by Pulse 99 99 Oximetry 12/08/18 12/08/18 12/08/18 00:44 01:00 02:00 Temperature Pulse Rate 107 H 117 H Pulse Rate [ Anterior Bilateral Throughout] Respiratory 24 21 29 H Rate Respiratory Rate [Anterior Bilateral Throughout] Blood Pressure 117/74 118/78 O2 Sat by Pulse 99 99 100 Oximetry 12/08/18 12/08/18 12/08/18 03:00 03:48 04:00 Temperature 98.8 F Pulse Rate 115 H 111 H Pulse Rate [ Anterior Bilateral Throughout] Respiratory 21 20 Rate Respiratory Rate [Anterior Bilateral Throughout] Blood Pressure 106/70 106/68 O2 Sat by Pulse 100 Oximetry 12/08/18 12/08/18 12/08/18 04:32 05:00 06:00 Temperature Pulse Rate 110 H 110 H 112 H Pulse Rate [ Anterior Bilateral Throughout] Respiratory 23 21 Rate Respiratory Rate [Anterior Bilateral Throughout] Blood Pressure 106/68 110/73 112/75 O2 Sat by Pulse 100 100 Oximetry - General Appearance General appearance: well-developed, appears stated age, intubated, other (on vent) EENT: ATNC, PERRL Neck: supple Respiratory: Present: Clear to Ascultation Cardiology: tachycardia, S1S2, no murmurs Gastrointestinal: normoactive bowel sounds, no tenderness, no distended Integumentary: other (LE dressing noted) Neurologic: other (opens eyes) Musculoskeletal: other (no edema) - Lab 12/07/18 02:40 12/08/18 03:43 Most recent lab results ABG pH 7.431 pH Units (7.350-7.450) 12/06/18 04:44 ABG pCO2 32.1 mm Hg 12/06/18 04:44 ABG pO2 87.2 mm Hg (80.0-90.0) 12/06/18 04:44 ABG HCO3 20.9 mmol/L (20.0-26.0) 12/06/18 04:44 ABG O2 Saturation 97.2 % (95.0-99.0) 12/06/18 04:44 Calcium 8.4 mg/dL (8.4-10.2) 12/08/18 03:43 Phosphorus 2.80 mg/dL (2.5-4.5) 12/04/18 08:01 Magnesium 2.10 mg/dL (1.7-2.3) 12/04/18 08:01 173.8 mg/dL (0.1-20.0) H 11/30/18 14:20 18 mmol/L 11/30/18 14:20 Medications & Allergies - Medications Allergies/Adverse Reactions: Allergies No Known Allergies Allergy (Unverified 03/29/16 00:43) Home Medications: Home Medications Medication Instructions Recorded Confirmed Last Taken Type Aspirin [Aspirin BABY CHEW TAB] 81 mg PO QDAY #30 tab.chew 11/15/17 11/29/18 Unknown Rx Amlodipine Besylate 10 mg PO QDAY 05/21/18 11/29/18 Unknown History Carvedilol 6.25 mg PO BID 05/21/18 11/29/18 Unknown History Isentress 400 mg PO Q12HR 05/21/18 11/29/18 Unknown History Rosuvastatin Calcium 10 mg PO DAILY 05/21/18 11/29/18 Unknown History Memantine [Namenda] 5 mg PO QDAY #30 tablet 11/01/18 11/29/18 Unknown Rx Albuterol Sulfate [Albuterol 0.63% 0.63 mg IH TID PRN 30 Days ml 11/07/18 11/29/18 Unknown Rx NEBS] AtorvaSTATin [Lipitor] 20 mg PO QDAY #30 tablet 11/07/18 11/29/18 Unknown Rx Famotidine [Pepcid] 10 mg PO BID #60 tablet 11/07/18 11/29/18 Unknown Rx Ipratropium/Albuterol Sulfate 1 ampul IH Q6HR 30 Days ampul.neb 11/07/18 11/29/18 Unknown Rx [DUONEB *Not for PRN Use*] Tamsulosin [Flomax] 0.4 mg PO QHS #30 capsule 11/07/18 11/29/18 Unknown Rx Zidovudine 300 mg PO DAILY 11/09/18 11/29/18 Unknown History Insulin Regular, Human [HumuLIN R] 0 unit SQ AC #1 vial 11/12/18 11/29/18 Unknown Rx Active Medications: Generic Name Dose Route Start Last Admin Trade Name Freq PRN Reason Stop Dose Admin Abacavir Sulfate 600 mg 11/30/18 16:00 12/07/18 09:56 Ziagen PO 600 mg DAILY KEN Administration Albuterol 2.5 mg 11/30/18 00:17 Proventil IH Q4HRT PRN Shortness Of Breath Albuterol/Ipratropium 1 ampul 11/30/18 08:00 12/07/18 19:50 Duoneb *Not For Prn Use* IH 1 ampul QIDRT KEN Administration Lipase/Protease/Amylase 1 each 12/03/18 10:42 Pancredavis [place] 10,500 Unit FEEDTUBE PRN PRN For Clogged Feeding Tube Famotidine 10 mg 12/04/18 11:00 12/07/18 22:40 Pepcid PO 10 mg BID KEN Administration Fentanyl 50 mcg 12/04/18 17:28 12/05/18 03:01 Sublimaze IV 50 mcg Q2H PRN Administration INCREASED AGITATION Folic Acid 1 mg 12/04/18 12:00 12/07/18 09:55 Folvite PO 1 mg QDAY KEN Administration Cefepime HCl 2 gm in 100 mls @ 200 mls/hr 11/30/18 22:00 12/07/18 22:40 Maxipime/Ns 2 Gm/100 Ml IV 200 mls/hr Q24H KEN Administration Protocol Insulin Human Lispro 0 unit 11/30/18 07:00 12/08/18 06:14 Humalog SUB-Q 10 unit Q6HR KEN Administration Protocol Lamivudine 150 mg 12/06/18 10:00 12/07/18 09:57 Epivir PO 150 mg DAILY KEN Administration Metoclopramide HCl 5 mg 11/30/18 00:22 Reglan IV Q6H PRN Nausea And Vomiting Ondansetron HCl 4 mg 11/30/18 00:06 Zofran IV Q8H PRN Nausea And Vomiting Raltegravir 400 mg 11/30/18 16:00 12/07/18 22:39 Isentress PO 400 mg BID KEN Administration Simple Syrup 15 ml 12/03/18 10:42 Simple Syrup FEEDTUBE PRN PRN Hypoglycemia Simple Syrup 30 ml 12/03/18 10:42 Simple Syrup FEEDTUBE PRN PRN Hypoglycemia Sodium Bicarbonate 325 mg 12/03/18 10:42 Sodium Bicarbonate FEEDTUBE PRN PRN For Clogged Feeding Tube Sodium Chloride 10 ml 11/30/18 10:00 12/07/18 22:40 Sodium Chloride Flush Syringe 10 Ml IV 10 ml BID KEN Administration Sodium Chloride 10 ml 11/30/18 00:06 Sodium Chloride Flush Syringe 10 Ml IV PRN PRN LINE FLUSH Zidovudine 300 mg 11/30/18 16:00 12/07/18 22:39 Retrovir PO 300 mg BID KEN Administration
[2018-12-08] MEDS: DUONEB *Not for PRN Use IH SCH ×4 (08:18→21:39)
--- NOTE | 2018-12-08 09:16 | Progress Note ---
Subjective Date of service: 12/08/18 Principal diagnosis: low plt Interval history: Intubated this AM, HR sinus tachy HR 110s Altered mental status Thrombocytopenia Hx of CVA Non-specific troponin Cardiomyopathy, EF 15-20% Moderate to severe MR and TR Renal failure HIV Supportive cardiac management. Cont to monitor rhythm Objective Vital Signs Temp Pulse Pulse Pulse Resp Resp Resp 12/08/18 08:43 111 H 12/08/18 08:18 113 H 25 H 12/08/18 08:00 98.7 F 112 H 25 H 12/08/18 07:00 112 H 26 H 12/08/18 06:00 112 H 12/08/18 05:00 110 H 23 12/08/18 04:32 110 H 12/08/18 04:00 111 H 12/08/18 03:48 98.8 F 12/08/18 03:00 115 H 12/08/18 02:00 117 H 29 H 12/08/18 01:00 107 H 12/08/18 00:44 12/08/18 00:00 114 H 12/07/18 23:28 98.1 F 12/07/18 23:24 117 H 23 12/07/18 23:04 115 H 12/07/18 23:00 114 H 18 12/07/18 22:00 116 H 12/07/18 21:00 117 H 12/07/18 20:35 12/07/18 20:13 119 H 12/07/18 20:00 97.8 F 117 H 12/07/18 19:47 115 H 12/07/18 19:00 115 H 12/07/18 18:00 122 H 25 H 12/07/18 17:45 116 H 12/07/18 17:25 120 H 18 12/07/18 17:00 121 H 24 12/07/18 16:00 99.2 F 119 H 118 H 12/07/18 15:00 121 H 24 12/07/18 14:00 118 H 12/07/18 13:20 118 H 12/07/18 13:00 119 H 25 H 12/07/18 12:00 98.8 F 121 H 119 H 12/07/18 11:00 118 H 12/07/18 10:00 119 H 23 22 12/07/18 09:50 115 H 20 12/07/18 09:30 118 H 22 BP Pulse Ox 12/08/18 08:43 117/77 100 12/08/18 08:18 12/08/18 08:00 117/77 100 12/08/18 07:00 117/80 100 12/08/18 06:00 112/75 100 12/08/18 05:00 110/73 12/08/18 04:32 106/68 100 12/08/18 04:00 106/68 100 12/08/18 03:48 12/08/18 03:00 106/70 12/08/18 02:00 118/78 100 12/08/18 01:00 117/74 99 12/08/18 00:44 99 12/08/18 00:00 117/78 99 12/07/18 23:28 12/07/18 23:24 117/68 99 12/07/18 23:04 117/68 100 12/07/18 23:00 117/68 99 12/07/18 22:00 107/69 99 12/07/18 21:00 113/74 98 12/07/18 20:35 99 12/07/18 20:13 12/07/18 20:00 107/63 99 12/07/18 19:47 97/70 100 12/07/18 19:00 97/70 99 12/07/18 18:00 105/75 98 12/07/18 17:45 105/75 100 12/07/18 17:25 12/07/18 17:00 95/74 96 12/07/18 16:00 107/67 97 12/07/18 15:00 117/75 98 12/07/18 14:00 117/66 98 12/07/18 13:20 12/07/18 13:00 121/76 98 12/07/18 12:00 116/74 99 12/07/18 11:00 112/76 98 12/07/18 10:00 114/77 96 12/07/18 09:50 114/77 100 12/07/18 09:30 - Physical Examination General: Other (on the vent) Neck: Positive: trachea midline Cardiac: Positive: Reg Rate and Rhythm, S1/S2 Lungs: Positive: clear to auscultation Neuro: Positive: Other (unresponsive, on the vent) Abdomen: Positive: Soft Skin: Positive: Clear Extremities: Absent: edema - Labs and Meds Comprehensive Metabolic Panel 12/08/18 Range/Units 03:43 Sodium 143 (137-145) mmol/L Potassium 4.1 D (3.6-5.0) mmol/L Chloride 110.9 H (98-107) mmol/L Carbon Dioxide 21 L (22-30) mmol/L BUN 53 H (9-20) mg/dL Creatinine 1.6 H (0.8-1.5) mg/dL Glucose 311 H (75-100) mg/dL Calcium 8.4 (8.4-10.2) mg/dL - Imaging and Cardiology EKG: report reviewed
--- NOTE | 2018-12-08 10:41 | Progress Note ---
Assessment and Plan Assessment and plan: Patient is a 73 yo man from [facility] with severe end-stage co-morbities including HIV, type 2 DM, NSTEMI type 2, hyperkalemia, hypernatremia, malnutrition, severe CHF with EF 15-20%, Dementia, CVA with SAH after fall here at [facility] on 05/22/18 with transferred to [facility], recurrent bouts of hypog lycmia, who had been admitted 3 times this month of November 2018. Initially he was admitted on 10/24/18 to 11/01/18 due to AMS, new CVA was ruled out by MRI but did show chronic infarcts in the right parietal lobe and the right MCA [employer] watershed territory and chronic lacunar infarct in the right paracentral [place] area. It was recommended that patient go to SNF but refused and took him home. He returned 2 days later due to hypoglycemia, it appears he wasn't eating enough but still taking DM medications. He was then discharged to [facility] on 11/07/2018. He returned 2 days later on 11/09/2018 due to hypoxemia and hypoglycemia again. He was discharged back to the [facility] on . Now he returns to the ED on 11/29/18 with severe worsening AMS GCS of 5 requiring Intubation. I do not know why he is on Fentanyl drip. * CT head without contrast Impression: There is continued extensive microvascula r angiopathy as detailed...without CT evidence of acute ICH. * pCXR Impression: Minimal interstitial edema, ngt in stomach, needs advancing 5-10 cm, borderline cardiomegaly, no consolidation or effusion * Abd XRAY after NGT advancement, shows it is in the correct position * OBTAIN NEUROLOGY CONSULT FOR FURTHER EVALUATION Acute Metabolic Encephalopathy, poa, work up in progress: ? secondary to HIV, consulted Neurology, input noted,MRI still pending, LP negative Acute respiratory failure >96 hours poa s/p ETT placement: consulted Pulmonology, input noted- ON PS may consider extubation if tolerating SIRS with possible Sepsis: Continue cefepime, to complete today. ID following, awaiting cultures. Acute on chronic systolic heart failure (congestive heart failure) 15-20%, mild: treat medically, bp borderline too low for IV lasix, consulted Cardiology, input noted HIV (human immunodeficiency virus infection): ID consulted, input noted Acute renal insufficiency, ATN + vasomotor nephropathy, poa: monitor uop q shift, nephrology consulted, urine electrolytes, strict I/O, monitor uop q shift, monitor fluid balance, monitor serum creatnine, some improvement noted Type 2 DM on Insulin with recurrent hypoglycemia: treat with SSI, ADA, ADJUST FOR BETTER CONTROL Severe malnutrition, as evidence by decubitus ulcers, inadequate nutritional intake, and muscle wasting. poa: consult [employer] Decubitus ulcers at least stage 3: Consult wound care Hypernatremia: Likely from dehydration, treat with free water, monitor bmp closely DVT prophylaxis: SCD to BLE while in bed, on d/c a/c Severe pancytopenia, plt count only 48: consulted Heme/onc Thrombocytopenia: GAVE a unit a plt Disposition: continue inpatient ICU care SIRS possible sepsis, poa - ID is following, negative blood cultures. Unclear source. CC-35 mins no family present poor prognosis The high probability of a clinically significant, sudden or life threatening deterioration of the [pulmonary, neuro] system(s) required my full and direct attention, intervention and personal management. The aggregate critical care time was [35] minutes. This time is in addition to time spent performing reported procedures but includes the following: [x] Data Review and interpretation [x] Patient assessment and monitoring of vital signs [x] Documentation [x] Medication orders and management History Interval history: Patient was seen and examined. Follow-up on current diagnosis of AMS. No overnight events reported to me. Imaging, nursing note, chart, labs and old chart reviewed. No family at bedside, patient opens eyes at verbal stimuli but not following any instruction Hospitalist Physical - Physical exam Narrative exam: Gen: cachetic, intubated and sedated on fentanyl drip HEENT: NCAT, pupils pinpoint Neck: supple, no adenopathy, no thyromegaly, CVS/Heart: RRR, normal S1S2, pulses present bilaterally Chest/Lungs: diminished BS, Symmetrical chest expansion, good air entry bilaterally GI/Abdomen: soft, NTND, hypoactive, no guarding or rebound /Bladder: no suprapubic tenderness, no CVA or paraspinal tenderness Extermity/Skin: trace edema, bilateral, no cyanosis, see skin documentation for detail exam Neuro: intubated, not following commands despite no sedation Psych: intubated - Constitutional Vitals: Temp Pulse Resp BP Pulse Ox 98.7 F 116 H 29 H 125/84 98 12/08/18 08:00 12/08/18 10:00 12/08/18 10:00 12/08/18 10:00 12/08/18 10:00 General appearance: Present: no acute distress, other (intubated on cpap) Results - Labs CBC & Chem 7: 12/07/18 02:40 12/08/18 03:43 Labs: Laboratory Last Values WBC 7.2 K/mm3 (4.5-11.0) 12/07/18 02:40 RBC 2.78 M/mm3 (3.65-5.03) L 12/07/18 02:40 Hgb 10.2 gm/dl (11.8-15.2) L 12/07/18 02:40 Hct 31.5 % (35.5-45.6) L 12/07/18 02:40 MCV 113 fl (84-94) H 12/07/18 02:40 MCH 37 pg (28-32) H 12/07/18 02:40 MCHC 32 % (32-34) 12/07/18 02:40 RDW 16.7 % (13.2-15.2) H 12/07/18 02:40 Plt Count 57 K/mm3 (140-440) L 12/07/18 02:40 Lymph % (Auto) 7.1 % (13.4-35.0) L 12/06/18 04:02 Sunflower % (Auto) 4.3 % (0.0-7.3) 12/06/18 04:02 Eos % (Auto) 0.6 % (0.0-4.3) 12/06/18 04:02 Baso % (Auto) 0.1 % (0.0-1.8) 12/06/18 04:02 Lymph # 0.4 K/mm3 (1.2-5.4) L 12/06/18 04:02 Sunflower # 0.3 K/mm3 (0.0-0.8) 12/06/18 04:02 Eos # 0.0 K/mm3 (0.0-0.4) 12/06/18 04:02 Baso # 0.0 K/mm3 (0.0-0.1) 12/06/18 04:02 Add Manual Diff Complete 12/07/18 02:40 Total Counted 100 12/07/18 02:40 Seg Neutrophils % [employer] 12/07/18 02:40 Seg Neuts % (Manual) 99.0 % (40.0-70.0) H 12/07/18 02:40 0 % 12/07/18 02:40 1.0 % (13.4-35.0) L 12/07/18 02:40 Reactive Lymphs % (Man) 0 % 12/07/18 02:40 0 % (0.0-7.3) 12/07/18 02:40 0 % (0.0-4.3) 12/07/18 02:40 0 % (0.0-1.8) 12/07/18 02:40 0 % 12/07/18 02:40 0 % 12/07/18 02:40 0 % 12/07/18 02:40 0 % 12/07/18 02:40 Nucleated RBC % Not Reportable 12/07/18 02:40 Seg Neutrophils # 5.6 K/mm3 (1.8-7.7) 12/06/18 04:02 Seg Neutrophils # Man 7.1 K/mm3 (1.8-7.7) 12/07/18 02:40 Band Neutrophils # 0.0 K/mm3 12/07/18 02:40 0.1 K/mm3 (1.2-5.4) L 12/07/18 02:40 Abs React Lymphs (Man) 0.0 K/mm3 12/07/18 02:40 0.0 K/mm3 (0.0-0.8) 12/07/18 02:40 0.0 K/mm3 (0.0-0.4) 12/07/18 02:40 0.0 K/mm3 (0.0-0.1) 12/07/18 02:40 0.0 K/mm3 12/07/18 02:40 0.0 K/mm3 12/07/18 02:40 0.0 K/mm3 12/07/18 02:40 Blast Cells # 0.0 K/mm3 12/07/18 02:40 WBC Morphology Not Reportable 12/07/18 02:40 Hypersegmented Neuts Not Reportable 12/07/18 02:40 Hyposegmented Neuts Not Reportable 12/07/18 02:40 Hypogranular Neuts Not Reportable 12/07/18 02:40 Not Reportable 12/07/18 02:40 Not Reportable 12/07/18 02:40 Not Reportable 12/07/18 02:40 Not Reportable 12/07/18 02:40 Not Reportable 12/07/18 02:40 Not Reportable 12/07/18 02:40 Consistent w auto 12/07/18 02:40 Not Reportable 12/07/18 02:40 Plt Clumps, EDTA Not Reportable 12/07/18 02:40 Not Reportable 12/07/18 02:40 Not Reportable 12/07/18 02:40 Not Reportable 12/07/18 02:40 Plt Morphology Comment Not Reportable 12/07/18 02:40 RBC Morphology Not Reportable 12/07/18 02:40 Dimorphic RBCs Not Reportable 12/07/18 02:40 Not Reportable 12/07/18 02:40 Not Reportable 12/07/18 02:40 1+ 12/07/18 02:40 1+ 12/07/18 02:40 Not Reportable 12/07/18 02:40 1+ 12/07/18 02:40 Not Reportable 12/07/18 02:40 Not Reportable 12/07/18 02:40 Not Reportable 12/07/18 02:40 Not Reportable 12/07/18 02:40 Rare 12/07/18 02:40 Not Reportable 12/07/18 02:40 Not Reportable 12/07/18 02:40 Not Reportable 12/07/18 02:40 Not Reportable 12/07/18 02:40 Few 12/07/18 02:40 Not Reportable 12/07/18 02:40 Not Reportable 12/07/18 02:40 Few 12/07/18 02:40 Acanthocytes (Spur) Not Reportable 12/07/18 02:40 Rouleaux Not Reportable 12/07/18 02:40 Not Reportable 12/07/18 02:40 Not Reportable 12/07/18 02:40 Not Reportable 12/07/18 02:40 Not Reportable 12/07/18 02:40 Hem Pathologist Commnt No 12/07/18 02:40 PT 17.0 Sec. (12.2-14.9) H 12/04/18 08:01 INR 1.42 (0.87-1.13) H 12/04/18 08:01 APTT 36.4 Sec. (24.2-36.6) 12/04/18 08:01 POC ABG pH 7.437 (7.35-7.45) 12/04/18 03:48 ABG pH 7.431 pH Units (7.350-7.450) 12/06/18 04:44 POC ABG pCO2 39.5 (35-45) 11/29/18 14:24 ABG pCO2 32.1 mm Hg 12/06/18 04:44 POC ABG pO2 82 (80-105) 12/04/18 03:48 ABG pO2 87.2 mm Hg (80.0-90.0) 12/06/18 04:44 POC ABG HCO3 19.3 (22-26 mml/L) 12/04/18 03:48 ABG HCO3 20.9 mmol/L (20.0-26.0) 12/06/18 04:44 POC ABG Total CO2 20 (23-27mmol/L) 12/04/18 03:48 POC ABG O2 Sat 97 12/04/18 03:48 ABG O2 Saturation 97.2 % (95.0-99.0) 12/06/18 04:44 ABG O2 Content 14.1 (0.0-44) 12/06/18 04:44 POC ABG Base Excess -5 ((-2) - (+3)mmol/L) 12/04/18 03:48 ABG Base Excess -2.7 mmol/L (-2.0-3.0) L 12/06/18 04:44 ABG Hemoglobin 10.5 gm/dl (14.0-18.0) L 12/06/18 04:44 ABG Carboxyhemoglobin 2.1 % (0.0-5.0) 12/06/18 04:44 ABG Methemoglobin 0.5 % (0.0-1.5) 12/06/18 04:44 VBG pH 7.186 (7.320-7.420) L* 11/29/18 13:39 94.7 % (95.0-99.0) L 12/06/18 04:44 30 % 12/06/18 04:44 Sodium 143 mmol/L (137-145) 12/08/18 03:43 Potassium 4.1 mmol/L (3.6-5.0) D 12/08/18 03:43 Chloride 110.9 mmol/L (98-107) H 12/08/18 03:43 Carbon Dioxide 21 mmol/L (22-30) L 12/08/18 03:43 15 mmol/L 12/08/18 03:43 BUN 53 mg/dL (9-20) H 12/08/18 03:43 1.6 mg/dL (0.8-1.5) H 12/08/18 03:43 Estimated GFR 51 ml/min 12/08/18 03:43 33 % 12/08/18 03:43 Glucose 311 mg/dL (75-100) H 12/08/18 03:43 POC Glucose 347 (70-105) H 12/08/18 07:35 Lactic Acid 1.30 mmol/L (0.7-2.0) 11/29/18 14:42 Calcium 8.4 mg/dL (8.4-10.2) 12/08/18 03:43 Phosphorus 2.80 mg/dL (2.5-4.5) 12/04/18 08:01 Magnesium 2.10 mg/dL (1.7-2.3) 12/04/18 08:01 Iron 20 ug/dL (49-181) L 12/04/18 08:01 TIBC 168 mcg/dL (250-450) L 12/04/18 08:01 174.3 ng/mL (13.0-400.0) 12/04/18 08:01 0.50 mg/dL (0.1-1.2) 12/04/18 08:01 AST 24 units/L (5-40) 12/04/18 08:01 ALT 32 units/L (7-56) 12/04/18 08:01 292 units/L (35-129) H 12/04/18 08:01 28.0 umol/L (25-60) 11/29/18 13:39 243 units/L (55-170) H 11/29/18 13:39 0.054 ng/mL (0.00-0.029) H 11/29/18 13:39 5.2 g/dL (6.3-8.2) L 12/04/18 08:01 2.1 g/dL (3.9-5) L 12/04/18 08:01 0.7 % 12/04/18 08:01 Triglycerides 68 mg/dL (2-149) 11/29/18 13:39 Cholesterol 95 mg/dL (50-199) 11/29/18 13:39 30 mg/dL (50-130) L 11/29/18 13:39 63 mg/dL (40-59) H 11/29/18 13:39 1.50 % 11/29/18 13:39 Vitamin B12 1798 pg/mL (211-911) H 12/05/18 03:42 7.24 ng/mL (7.3-26.0) L 12/04/18 08:01 14.8 mcg/dL () 12/01/18 09:08 Yellow (Yellow) 11/29/18 13:16 Clear (Clear) 11/29/18 13:16 5.0 (5.0-7.0) 11/29/18 13:16 Ur Specific [place] 1.018 (1.003-1.030) 11/29/18 13:16 30 mg/dl mg/dL (Negative) 11/29/18 13:16 Neg mg/dL (Negative) 11/29/18 13:16 Neg mg/dL (Negative) 11/29/18 13:16 Neg (Negative) 11/29/18 13:16 Neg (Negative) 11/29/18 13:16 Neg (Negative) 11/29/18 13:16 < 2.0 mg/dL (<2.0) 11/29/18 13:16 Ur Leukocyte Esterase Neg (Negative) 11/29/18 13:16 5.0 /HPF (0.0-6.0) 11/29/18 13:16 2.0 /HPF (0.0-6.0) 11/29/18 13:16 1+ /HPF (Negative) 11/29/18 13:16 173.8 mg/dL (0.1-20.0) H 11/30/18 14:20 18 mmol/L 11/30/18 14:20 Clear 12/02/18 Unknown Colorless 12/02/18 Unknown 2 /mm3 (1-10) 12/02/18 Unknown 1 /mm3 (0-0) 12/02/18 Unknown CSF Seg Neutrophils 50.0 % (0-6) 12/02/18 Unknown 0 % (40-80) 12/02/18 Unknown CSF Reactive Lymphs 0 % 12/02/18 Unknown 50.0 % (15-45) 12/02/18 Unknown 0 % 12/02/18 Unknown 0 % 12/02/18 Unknown C 12/02/18 Unknown 122 mg/dL 12/02/18 Unknown 22 mg/dL 12/02/18 Unknown Nonreactive (Nonreactive) 12/02/18 Unknown Random Vancomycin 10.7 ug/mL (0-40.0) 12/01/18 13:20 Salicylates < 0.3 mg/dL (2.8-20.0) L 11/29/18 13:39 Presumptive negative 11/29/18 13:16 Presumptive negative 11/29/18 13:16 Acetaminophen < 5.0 ug/mL (10.0-30.0) L 11/29/18 13:39 Ur Barbiturates Screen Presumptive negative 11/29/18 13:16 Ur Phencyclidine Scrn Presumptive negative 11/29/18 13:16 Ur Amphetamines Screen Presumptive negative 11/29/18 13:16 U Benzodiazepines Scrn Presumptive negative 11/29/18 13:16 Presumptive negative 11/29/18 13:16 U Marijuana (THC) Screen Presumptive negative 11/29/18 13:16 Disclamer 11/29/18 13:16 Non-reactive (NonReactive) 12/01/18 04:08 RPR Nonreactive (Nonreactive) 12/02/18 17:04 Hepatitis A IgM Ab Non-reactive (NonReactive) 12/02/18 17:04 Hep Bs Antigen Non-reactive (Negative) 12/02/18 17:04 Hep B Core IgM Ab Non-reactive (NonReactive) 12/02/18 17:04 Non-reactive (NonReactive) 12/02/18 17:04 Flexitest 1 12/06/18 Unknown Blood Type B POSITIVE 12/06/18 04:02 Antibody Screen Negative 11/29/18 13:39 Active Medications - Current Medications Current Medications: Generic Name Dose Route Start Last Admin Trade Name Freq PRN Reason Stop Dose Admin Abacavir Sulfate 600 mg 11/30/18 16:00 12/07/18 09:56 Ziagen PO 600 mg DAILY KEN Administration Albuterol 2.5 mg 11/30/18 00:17 Proventil IH Q4HRT PRN Shortness Of Breath Albuterol/Ipratropium 1 ampul 11/30/18 08:00 12/08/18 08:18 Duoneb *Not For Prn Use* IH 1 ampul QIDRT KEN Administration Lipase/Protease/Amylase 1 each 12/03/18 10:42 Pancreaze 10,500 Unit FEEDTUBE PRN PRN For Clogged Feeding Tube Docusate Sodium 100 mg 12/08/18 11:00 Colace PO BID KEN Famotidine 10 mg 12/04/18 11:00 12/07/18 22:40 Pepcid PO 10 mg BID KEN Administration Fentanyl 50 mcg 12/04/18 17:28 12/05/18 03:01 Sublimaze IV 50 mcg Q2H PRN Administration INCREASED AGITATION Folic Acid 1 mg 12/04/18 12:00 12/07/18 09:55 Folvite PO 1 mg QDAY KEN Administration Cefepime HCl 2 gm in 100 mls @ 200 mls/hr 11/30/18 22:00 12/07/18 22:40 Maxipime/Ns 2 Gm/100 Ml IV 200 mls/hr Q24H KEN Administration Protocol Insulin Glargine 10 units 12/08/18 17:00 Lantus SUB-Q BIDDIAB KEN Insulin Human Lispro 0 unit 11/30/18 07:00 12/08/18 06:14 Humalog SUB-Q 10 unit Q6HR KEN Administration Protocol Lamivudine 150 mg 12/06/18 10:00 12/07/18 09:57 Epivir PO 150 mg DAILY KEN Administration Metoclopramide HCl 5 mg 11/30/18 00:22 Reglan IV Q6H PRN Nausea And Vomiting Ondansetron HCl 4 mg 11/30/18 00:06 Zofran IV Q8H PRN Nausea And Vomiting Raltegravir 400 mg 11/30/18 16:00 12/07/18 22:39 Isentress PO 400 mg BID KEN Administration Simple Syrup 15 ml 12/03/18 10:42 Simple Syrup FEEDTUBE PRN PRN Hypoglycemia Simple Syrup 30 ml 12/03/18 10:42 Simple Syrup FEEDTUBE PRN PRN Hypoglycemia Sodium Bicarbonate 325 mg 12/03/18 10:42 Sodium Bicarbonate FEEDTUBE PRN PRN For Clogged Feeding Tube Sodium Chloride 10 ml 11/30/18 10:00 12/07/18 22:40 Sodium Chloride Flush Syringe 10 Ml IV 10 ml BID KEN Administration Sodium Chloride 10 ml 11/30/18 00:06 Sodium Chloride Flush Syringe 10 Ml IV PRN PRN LINE FLUSH Zidovudine 300 mg 11/30/18 16:00 12/07/18 22:39 Retrovir PO 300 mg BID KEN Administration Nutrition/Malnutrition Assess - Dietary Evaluation Nutrition/Malnutrition Findings: Nutrition Notes Start: 11/30/18 08:33 Freq: Status: Active Protocol: Document 12/06/18 09:45 LM (Rec: 12/06/18 09:55 LM [id number]) Nutrition Notes Initial or Follow up Reassessment Current Diagnosis Acute Kidney Injury,COPD, Diabetes,Hypertension Other Pertinent Diagnosis dementia, HIV, AMS Current Diet NPO Labs/Tests BUN 44 Cr 2.0 BG 96 Na 146 Pertinent Medications Reviewed Height 6 ft 4 in Weight 84.6 kg [place] Body Weight (kg) 91.81 BMI 22.6 Weight change and time frame Weight gain noted Subjective/Other Information TF not running at time of visit. Pt still NPO. Per nurse lumbar punture rescheduled for today due to thrombocytopenia. Percent of energy/protein needs met: 0%/0% Burn Absent Trauma Absent #1 Nutrition Diagnosis Inadequate oral intake Diagnosis Progress(for reassessment Continues documentation) Is patient on ventilator? Yes Is Patient Ambulatory and/or Out of Bed No REE-([facility]-confined to bed) 2031.084 Kcal/Kg value to use for calculation 27 Approximate Energy Requirements Using 2284 kcal/Kg Calculation Used for Recommendations Kcal/kg Additional Notes Protein: 95-158g (1.2-2g/kg) Fluids 1 ml/kcal or per MD Nutrition Intervention Change Diet Order: Restart TF Nutrition Support: Nepro with Carbsteady at 50ml/ hr Change Flush to 250 ml q4hr for hypernatremia when TF reordered Kcal 2,160 Protein (gm) 97 Fluid (mL) 872 Goal #1 TF restart/tolerance Goal #2 Meet at least 80% of energy and protein needs Anticipated Discharge Needs: Unable to determine at this time Follow-Up By: 12/08/18 Additional Comments F/U for TF restart/tolerance, Na labs
[2018-12-08] MEDS ORDERED: COLACE PO SCH (11:00)
[2018-12-08] MEDS: ISENTRESS PO SCH ×2 (11:06→21:18)
[2018-12-08] MEDS: FOLVITE PO SCH (11:06)
[2018-12-08] MEDS: PEPCID PO SCH ×2 (11:06→21:18)
[2018-12-08] MEDS: ZIAGEN PO SCH (11:06)
[2018-12-08] MEDS: SODIUM CHLORIDE FLUSH SYRINGE 10 ML IV SCH ×2 (11:07→21:17)
[2018-12-08] MEDS: RETROVIR PO SCH ×2 (11:07→21:19)
[2018-12-08] MEDS: LANTUS SUB-Q SCH (11:10)
[2018-12-08] MEDS: EPIVIR PO SCH (11:20)
--- NOTE | 2018-12-08 11:23 | XRay Report ---
ABDOMEN SUPINE INDICATION / CLINICAL INFORMATION: hypoactive. COMPARISON: None available. FINDINGS: Nasogastric tube in the very proximal stomach. Bowel gas pattern is nonspecific. There appears to be considerable dense fecal material throughout the colon, possibly indicating constipation or possibly even fecal impaction. Signer Name: Forrest Vee MD Signed: 12/08/2018 11:19 AM Workstation Name: [id number]
[2018-12-08] MEDS ORDERED: PANCREAZE DR 10,500 UNIT FEEDTUBE PRN (11:28)
[2018-12-08] MEDS ORDERED: SIMPLE SYRUP FEEDTUBE PRN ×2 (11:28)
[2018-12-08] MEDS ORDERED: SODIUM BICARBONATE FEEDTUBE PRN (11:28)
--- NOTE | 2018-12-08 12:38 | Progress Note ---
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 playing role reviewed over entire chart Objective - Vital Sign Vital Signs - 12hr 12/08/18 12/08/18 12/08/18 00:44 01:00 02:00 Temperature Pulse Rate 107 H 117 H Pulse Rate [ Anterior Bilateral Throughout] Pulse Rate [ Apical] Respiratory 24 21 29 H Rate Respiratory Rate [Anterior Bilateral Throughout] Blood Pressure 117/74 118/78 O2 Sat by Pulse 99 99 100 Oximetry 12/08/18 12/08/18 12/08/18 03:00 03:48 04:00 Temperature 98.8 F Pulse Rate 115 H 111 H Pulse Rate [ Anterior Bilateral Throughout] Pulse Rate [ Apical] Respiratory 21 20 Rate Respiratory Rate [Anterior Bilateral Throughout] Blood Pressure 106/70 106/68 O2 Sat by Pulse 100 Oximetry 12/08/18 12/08/18 12/08/18 04:32 05:00 06:00 Temperature Pulse Rate 110 H 110 H 112 H Pulse Rate [ Anterior Bilateral Throughout] Pulse Rate [ Apical] Respiratory 23 21 Rate Respiratory Rate [Anterior Bilateral Throughout] Blood Pressure 106/68 110/73 112/75 O2 Sat by Pulse 100 100 Oximetry 12/08/18 12/08/18 12/08/18 07:00 08:00 08:18 Temperature 98.7 F Pulse Rate 112 H 112 H Pulse Rate [ 113 H Anterior Bilateral Throughout] Pulse Rate [ 112 H Apical] Respiratory 26 H 25 H Rate Respiratory 25 H Rate [Anterior Bilateral Throughout] Blood Pressure 117/80 117/77 O2 Sat by Pulse 100 100 Oximetry 12/08/18 12/08/18 12/08/18 08:43 09:00 10:00 Temperature Pulse Rate 111 H 113 H 116 H Pulse Rate [ Anterior Bilateral Throughout] Pulse Rate [ Apical] Respiratory 23 29 H Rate Respiratory Rate [Anterior Bilateral Throughout] Blood Pressure 117/77 119/81 125/84 O2 Sat by Pulse 100 99 98 Oximetry 12/08/18 11:00 Temperature Pulse Rate 120 H Pulse Rate [ Anterior Bilateral Throughout] Pulse Rate [ Apical] Respiratory 30 H Rate Respiratory Rate [Anterior Bilateral Throughout] Blood Pressure 129/78 O2 Sat by Pulse 98 Oximetry - Laboratory Findings CBC and BMP: 12/07/18 02:40 12/08/18 03:43 Abnormal Lab Findings: Abnormal Labs 11/29/18 11/29/18 11/29/18 13:07 13:39 13:39 WBC 3.2 L RBC 2.76 L Hgb 10.4 L Hct 32.1 L MCV 116 H MCH 38 H RDW 17.5 H Plt Count 48 L Lymph % (Auto) 5.4 L Lymph # 0.2 L Seg Neutrophils % 89.5 H Seg Neuts % (Manual) Lymphocytes % (Manual) Lymphocytes # (Manual) PT INR POC ABG pH POC ABG pO2 ABG pO2 ABG HCO3 ABG O2 Saturation ABG Base Excess ABG Hemoglobin VBG pH Oxyhemoglobin Sodium 153 H Potassium Chloride 113.3 H Carbon Dioxide 21 L BUN 55 H Creatinine 2.4 H Glucose 260 H POC Glucose 289 H Calcium Iron TIBC AST 68 H Alkaline Phosphatase 239 H Total Creatine Kinase 243 H Troponin T 0.054 H Total Protein 5.8 L Albumin 3.0 L LDL Cholesterol Direct 30 L HDL Cholesterol 63 H Vitamin B12 Folate Urine Creatinine Salicylates Acetaminophen 11/29/18 11/29/18 11/29/18 13:39 13:39 13:39 WBC RBC Hgb Hct MCV MCH RDW Plt Count Lymph % (Auto) Lymph # Seg Neutrophils % Seg Neuts % (Manual) Lymphocytes % (Manual) Lymphocytes # (Manual) PT INR POC ABG pH POC ABG pO2 ABG pO2 ABG HCO3 ABG O2 Saturation ABG Base Excess ABG Hemoglobin VBG pH 7.186 L* Oxyhemoglobin Sodium Potassium Chloride Carbon Dioxide BUN Creatinine Glucose POC Glucose Calcium Iron TIBC AST Alkaline Phosphatase Total Creatine Kinase Troponin T Total Protein Albumin LDL Cholesterol Direct HDL Cholesterol Vitamin B12 Folate Urine Creatinine Salicylates < 0.3 L Acetaminophen < 5.0 L 11/29/18 11/29/18 11/30/18 14:24 21:17 05:50 WBC RBC Hgb Hct MCV MCH RDW Plt Count Lymph % (Auto) Lymph # Seg Neutrophils % Seg Neuts % (Manual) Lymphocytes % (Manual) Lymphocytes # (Manual) PT INR POC ABG pH 7.319 L POC ABG pO2 126 H ABG pO2 203.3 H ABG HCO3 18.5 L ABG O2 Saturation 99.3 H ABG Base Excess -6.2 L ABG Hemoglobin 10.9 L VBG pH Oxyhemoglobin Sodium Potassium Chloride Carbon Dioxide BUN Creatinine Glucose POC Glucose 242 H Calcium Iron TIBC AST Alkaline Phosphatase Total Creatine Kinase Troponin T Total Protein Albumin LDL Cholesterol Direct HDL Cholesterol Vitamin B12 Folate Urine Creatinine Salicylates Acetaminophen 11/30/18 11/30/18 11/30/18 08:52 10:31 10:58 WBC RBC 3.05 L Hgb 11.5 L Hct 35.3 L MCV 116 H MCH 38 H RDW 17.2 H Plt Count 43 L Lymph % (Auto) Lymph # Seg Neutrophils % Seg Neuts % (Manual) Lymphocytes % (Manual) Lymphocytes # (Manual) PT INR POC ABG pH POC ABG pO2 ABG pO2 ABG HCO3 ABG O2 Saturation ABG Base Excess ABG Hemoglobin VBG pH Oxyhemoglobin Sodium 153 H Potassium Chloride 117.2 H Carbon Dioxide 18 L BUN 60 H Creatinine 2.8 H Glucose 216 H POC Glucose 234 H Calcium 8.2 L Iron TIBC AST Alkaline Phosphatase Total Creatine Kinase Troponin T Total Protein Albumin LDL Cholesterol Direct HDL Cholesterol Vitamin B12 Folate Urine Creatinine Salicylates Acetaminophen 11/30/18 11/30/18 11/30/18 12:40 14:20 17:35 WBC RBC Hgb Hct MCV MCH RDW Plt Count Lymph % (Auto) Lymph # Seg Neutrophils % Seg Neuts % (Manual) Lymphocytes % (Manual) Lymphocytes # (Manual) PT INR POC ABG pH POC ABG pO2 ABG pO2 ABG HCO3 ABG O2 Saturation ABG Base Excess ABG Hemoglobin VBG pH Oxyhemoglobin Sodium Potassium Chloride Carbon Dioxide BUN Creatinine Glucose POC Glucose 235 H 182 H Calcium Iron TIBC AST Alkaline Phosphatase Total Creatine Kinase Troponin T Total Protein Albumin LDL Cholesterol Direct HDL Cholesterol Vitamin B12 Folate Urine Creatinine 173.8 H Salicylates Acetaminophen 11/30/18 12/01/18 12/01/18 23:53 04:08 04:08 WBC RBC 3.11 L Hgb 11.7 L Hct 35.3 L MCV 113 H MCH 38 H RDW 16.9 H Plt Count 43 L Lymph % (Auto) Lymph # Seg Neutrophils % Seg Neuts % (Manual) Lymphocytes % (Manual) Lymphocytes # (Manual) PT INR POC ABG pH POC ABG pO2 ABG pO2 ABG HCO3 ABG O2 Saturation ABG Base Excess ABG Hemoglobin VBG pH Oxyhemoglobin Sodium 150 H Potassium Chloride 114.6 H Carbon Dioxide 16 L BUN 67 H Creatinine 2.9 H Glucose 193 H POC Glucose 149 H Calcium 8.2 L Iron TIBC AST Alkaline Phosphatase Total Creatine Kinase Troponin T Total Protein Albumin LDL Cholesterol Direct HDL Cholesterol Vitamin B12 Folate Urine Creatinine Salicylates Acetaminophen 12/01/18 12/01/18 12/01/18 04:55 05:11 13:33 WBC RBC Hgb Hct MCV MCH RDW Plt Count Lymph % (Auto) Lymph # Seg Neutrophils % Seg Neuts % (Manual) Lymphocytes % (Manual) Lymphocytes # (Manual) PT INR POC ABG pH POC ABG pO2 ABG pO2 91.9 H ABG HCO3 17.7 L ABG O2 Saturation ABG Base Excess -6.1 L ABG Hemoglobin 11.5 L VBG pH Oxyhemoglobin Sodium Potassium Chloride Carbon Dioxide BUN Creatinine Glucose POC Glucose 236 H 255 H Calcium Iron TIBC AST Alkaline Phosphatase Total Creatine Kinase Troponin T Total Protein Albumin LDL Cholesterol Direct HDL Cholesterol Vitamin B12 Folate Urine Creatinine Salicylates Acetaminophen 12/01/18 12/02/18 12/02/18 18:20 00:17 03:40 WBC RBC Hgb Hct MCV MCH RDW Plt Count Lymph % (Auto) Lymph # Seg Neutrophils % Seg Neuts % (Manual) Lymphocytes % (Manual) Lymphocytes # (Manual) PT INR POC ABG pH POC ABG pO2 ABG pO2 78.0 L ABG HCO3 16.4 L ABG O2 Saturation ABG Base Excess -6.2 L ABG Hemoglobin 11.4 L VBG pH Oxyhemoglobin 94.5 L Sodium Potassium Chloride Carbon Dioxide BUN Creatinine Glucose POC Glucose 177 H 192 H Calcium Iron TIBC AST Alkaline Phosphatase Total Creatine Kinase Troponin T Total Protein Albumin LDL Cholesterol Direct HDL Cholesterol Vitamin B12 Folate Urine Creatinine Salicylates Acetaminophen 12/02/18 12/02/18 12/02/18 05:11 05:26 07:50 WBC 4.1 L RBC 3.01 L Hgb 11.4 L Hct 34.1 L MCV 113 H MCH 38 H RDW 17.3 H Plt Count 40 L Lymph % (Auto) Lymph # Seg Neutrophils % Seg Neuts % (Manual) Lymphocytes % (Manual) Lymphocytes # (Manual) PT INR POC ABG pH POC ABG pO2 ABG pO2 ABG HCO3 ABG O2 Saturation ABG Base Excess ABG Hemoglobin VBG pH Oxyhemoglobin Sodium Potassium 5.6 H D Chloride 113.0 H Carbon Dioxide 16 L BUN 73 H Creatinine 2.8 H Glucose 202 H POC Glucose 179 H Calcium Iron TIBC AST Alkaline Phosphatase Total Creatine Kinase Troponin T Total Protein Albumin LDL Cholesterol Direct HDL Cholesterol Vitamin B12 Folate Urine Creatinine Salicylates Acetaminophen 12/02/18 12/02/18 12/02/18 11:57 18:40 18:43 WBC RBC Hgb Hct MCV MCH RDW Plt Count Lymph % (Auto) Lymph # Seg Neutrophils % Seg Neuts % (Manual) Lymphocytes % (Manual) Lymphocytes # (Manual) PT INR POC ABG pH POC ABG pO2 ABG pO2 ABG HCO3 ABG O2 Saturation ABG Base Excess ABG Hemoglobin VBG pH Oxyhemoglobin Sodium Potassium Chloride Carbon Dioxide BUN Creatinine Glucose POC Glucose 140 H 286 H 261 H Calcium Iron TIBC AST Alkaline Phosphatase Total Creatine Kinase Troponin T Total Protein Albumin LDL Cholesterol Direct HDL Cholesterol Vitamin B12 Folate Urine Creatinine Salicylates Acetaminophen 12/02/18 12/03/18 12/03/18 23:55 04:06 04:06 WBC 4.4 L RBC 2.96 L Hgb 11.3 L Hct 33.1 L MCV 112 H MCH 38 H RDW 16.7 H Plt Count 38 L Lymph % (Auto) Lymph # Seg Neutrophils % Seg Neuts % (Manual) Lymphocytes % (Manual) Lymphocytes # (Manual) PT INR POC ABG pH POC ABG pO2 ABG pO2 ABG HCO3 ABG O2 Saturation ABG Base Excess ABG Hemoglobin VBG pH Oxyhemoglobin Sodium 146 H Potassium Chloride 112.5 H Carbon Dioxide 18 L BUN 71 H Creatinine 2.5 H Glucose 258 H POC Glucose 303 H Calcium 8.3 L Iron TIBC AST Alkaline Phosphatase Total Creatine Kinase Troponin T Total Protein Albumin LDL Cholesterol Direct HDL Cholesterol Vitamin B12 Folate Urine Creatinine Salicylates Acetaminophen 12/03/18 12/03/18 12/03/18 05:17 11:25 17:46 WBC RBC Hgb Hct MCV MCH RDW Plt Count Lymph % (Auto) Lymph # Seg Neutrophils % Seg Neuts % (Manual) Lymphocytes % (Manual) Lymphocytes # (Manual) PT INR POC ABG pH POC ABG pO2 ABG pO2 ABG HCO3 ABG O2 Saturation ABG Base Excess ABG Hemoglobin VBG pH Oxyhemoglobin Sodium Potassium Chloride Carbon Dioxide BUN Creatinine Glucose POC Glucose 328 H 288 H 202 H Calcium Iron TIBC AST Alkaline Phosphatase Total Creatine Kinase Troponin T Total Protein Albumin LDL Cholesterol Direct HDL Cholesterol Vitamin B12 Folate Urine Creatinine Salicylates Acetaminophen 09/03/19 09/03/19 09/03/19 01:15 05:47 08:01 WBC RBC 3.11 L Hgb 11.7 L Hct MCV 115 H MCH 38 H RDW 17.6 H Plt Count 35 L Lymph % (Auto) 6.9 L Lymph # 0.3 L Seg Neutrophils % 87.7 H Seg Neuts % (Manual) Lymphocytes % (Manual) Lymphocytes # (Manual) PT INR POC ABG pH POC ABG pO2 ABG pO2 ABG HCO3 ABG O2 Saturation ABG Base Excess ABG Hemoglobin VBG pH Oxyhemoglobin Sodium Potassium Chloride Carbon Dioxide BUN Creatinine Glucose POC Glucose 282 H 265 H Calcium Iron TIBC AST Alkaline Phosphatase Total Creatine Kinase Troponin T Total Protein Albumin LDL Cholesterol Direct HDL Cholesterol Vitamin B12 Folate Urine Creatinine Salicylates Acetaminophen 12/04/18 12/04/18 12/04/18 08:01 08:01 08:01 WBC RBC Hgb Hct MCV MCH RDW Plt Count Lymph % (Auto) Lymph # Seg Neutrophils % Seg Neuts % (Manual) Lymphocytes % (Manual) Lymphocytes # (Manual) PT 17.0 H INR 1.42 H POC ABG pH POC ABG pO2 ABG pO2 ABG HCO3 ABG O2 Saturation ABG Base Excess ABG Hemoglobin VBG pH Oxyhemoglobin Sodium Potassium Chloride 114.6 H Carbon Dioxide 20 L BUN 62 H Creatinine 2.0 H Glucose 266 H POC Glucose Calcium 8.3 L Iron 20 L TIBC 168 L AST Alkaline Phosphatase 292 H Total Creatine Kinase Troponin T Total Protein 5.2 L Albumin 2.1 L LDL Cholesterol Direct HDL Cholesterol Vitamin B12 Folate 7.24 L Urine Creatinine Salicylates Acetaminophen 12/04/18 12/04/18 12/04/18 11:59 17:59 22:59 WBC RBC Hgb Hct MCV MCH RDW Plt Count Lymph % (Auto) Lymph # Seg Neutrophils % Seg Neuts % (Manual) Lymphocytes % (Manual) Lymphocytes # (Manual) PT INR POC ABG pH POC ABG pO2 ABG pO2 ABG HCO3 ABG O2 Saturation ABG Base Excess ABG Hemoglobin VBG pH Oxyhemoglobin Sodium Potassium Chloride Carbon Dioxide BUN Creatinine Glucose POC Glucose 267 H 226 H 341 H Calcium Iron TIBC AST Alkaline Phosphatase Total Creatine Kinase Troponin T Total Protein Albumin LDL Cholesterol Direct HDL Cholesterol Vitamin B12 Folate Urine Creatinine Salicylates Acetaminophen 12/05/18 12/05/18 12/05/18 03:42 03:42 03:42 WBC RBC 2.89 L Hgb 10.8 L Hct 32.2 L MCV 111 H MCH 37 H RDW 16.8 H Plt Count 47 L Lymph % (Auto) 5.5 L Lymph # 0.3 L Seg Neutrophils % 89.9 H Seg Neuts % (Manual) Lymphocytes % (Manual) Lymphocytes # (Manual) PT INR POC ABG pH POC ABG pO2 ABG pO2 ABG HCO3 ABG O2 Saturation ABG Base Excess ABG Hemoglobin VBG pH Oxyhemoglobin Sodium 146 H Potassium Chloride 113.3 H Carbon Dioxide 19 L BUN 55 H Creatinine 1.8 H Glucose 268 H POC Glucose Calcium 8.3 L Iron TIBC AST Alkaline Phosphatase Total Creatine Kinase Troponin T Total Protein Albumin LDL Cholesterol Direct HDL Cholesterol Vitamin B12 1798 H Folate Urine Creatinine Salicylates Acetaminophen 12/05/18 12/05/18 12/05/18 04:14 18:38 23:59 WBC RBC Hgb Hct MCV MCH RDW Plt Count Lymph % (Auto) Lymph # Seg Neutrophils % Seg Neuts % (Manual) Lymphocytes % (Manual) Lymphocytes # (Manual) PT INR POC ABG pH POC ABG pO2 ABG pO2 75.1 L ABG HCO3 ABG O2 Saturation ABG Base Excess -4.0 L ABG Hemoglobin 8.2 L VBG pH Oxyhemoglobin 94.0 L Sodium Potassium Chloride Carbon Dioxide BUN Creatinine Glucose POC Glucose 150 H 215 H Calcium Iron TIBC AST Alkaline Phosphatase Total Creatine Kinase Troponin T Total Protein Albumin LDL Cholesterol Direct HDL Cholesterol Vitamin B12 Folate Urine Creatinine Salicylates Acetaminophen 12/06/18 12/06/18 12/06/18 04:02 04:02 04:44 WBC RBC 2.88 L Hgb 10.6 L Hct 32.8 L MCV 114 H MCH 37 H RDW 17.3 H Plt Count 59 L Lymph % (Auto) 7.1 L Lymph # 0.4 L Seg Neutrophils % 87.9 H Seg Neuts % (Manual) Lymphocytes % (Manual) Lymphocytes # (Manual) PT INR POC ABG pH POC ABG pO2 ABG pO2 ABG HCO3 ABG O2 Saturation ABG Base Excess -2.7 L ABG Hemoglobin 10.5 L VBG pH Oxyhemoglobin 94.7 L Sodium 146 H Potassium Chloride 111.9 H Carbon Dioxide 21 L BUN 52 H Creatinine 1.7 H Glucose 254 H POC Glucose Calcium 8.3 L Iron TIBC AST Alkaline Phosphatase Total Creatine Kinase Troponin T Total Protein Albumin LDL Cholesterol Direct HDL Cholesterol Vitamin B12 Folate Urine Creatinine Salicylates Acetaminophen 12/06/18 12/06/18 12/06/18 05:59 12:08 17:52 WBC RBC Hgb Hct MCV MCH RDW Plt Count Lymph % (Auto) Lymph # Seg Neutrophils % Seg Neuts % (Manual) Lymphocytes % (Manual) Lymphocytes # (Manual) PT INR POC ABG pH POC ABG pO2 ABG pO2 ABG HCO3 ABG O2 Saturation ABG Base Excess ABG Hemoglobin VBG pH Oxyhemoglobin Sodium Potassium Chloride Carbon Dioxide BUN Creatinine Glucose POC Glucose 270 H 119 H 158 H Calcium Iron TIBC AST Alkaline Phosphatase Total Creatine Kinase Troponin T Total Protein Albumin LDL Cholesterol Direct HDL Cholesterol Vitamin B12 Folate Urine Creatinine Salicylates Acetaminophen 12/07/18 12/07/18 12/07/18 00:00 02:40 02:40 WBC RBC 2.78 L Hgb 10.2 L Hct 31.5 L MCV 113 H MCH 37 H RDW 16.7 H Plt Count 57 L Lymph % (Auto) Lymph # Seg Neutrophils % Seg Neuts % (Manual) 99.0 H Lymphocytes % (Manual) 1.0 L Lymphocytes # (Manual) 0.1 L PT INR POC ABG pH POC ABG pO2 ABG pO2 ABG HCO3 ABG O2 Saturation ABG Base Excess ABG Hemoglobin VBG pH Oxyhemoglobin Sodium 147 H Potassium 3.4 L Chloride 111.6 H Carbon Dioxide 19 L BUN 50 H Creatinine 1.6 H Glucose 243 H POC Glucose 203 H Calcium Iron TIBC AST Alkaline Phosphatase Total Creatine Kinase Troponin T Total Protein Albumin LDL Cholesterol Direct HDL Cholesterol Vitamin B12 Folate Urine Creatinine Salicylates Acetaminophen 12/07/18 12/07/18 12/07/18 05:27 11:49 17:30 WBC RBC Hgb Hct MCV MCH RDW Plt Count Lymph % (Auto) Lymph # Seg Neutrophils % Seg Neuts % (Manual) Lymphocytes % (Manual) Lymphocytes # (Manual) PT INR POC ABG pH POC ABG pO2 ABG pO2 ABG HCO3 ABG O2 Saturation ABG Base Excess ABG Hemoglobin VBG pH Oxyhemoglobin Sodium Potassium Chloride Carbon Dioxide BUN Creatinine Glucose POC Glucose 299 H 249 H 205 H Calcium Iron TIBC AST Alkaline Phosphatase Total Creatine Kinase Troponin T Total Protein Albumin LDL Cholesterol Direct HDL Cholesterol Vitamin B12 Folate Urine Creatinine Salicylates Acetaminophen 12/08/18 12/08/18 12/08/18 00:09 03:43 05:09 WBC RBC Hgb Hct MCV MCH RDW Plt Count Lymph % (Auto) Lymph # Seg Neutrophils % Seg Neuts % (Manual) Lymphocytes % (Manual) Lymphocytes # (Manual) PT INR POC ABG pH POC ABG pO2 ABG pO2 ABG HCO3 ABG O2 Saturation ABG Base Excess ABG Hemoglobin VBG pH Oxyhemoglobin Sodium Potassium Chloride 110.9 H Carbon Dioxide 21 L BUN 53 H Creatinine 1.6 H Glucose 311 H POC Glucose 312 H 363 H Calcium Iron TIBC AST Alkaline Phosphatase Total Creatine Kinase Troponin T Total Protein Albumin LDL Cholesterol Direct HDL Cholesterol Vitamin B12 Folate Urine Creatinine Salicylates Acetaminophen 12/08/18 12/08/18 07:35 12:18 WBC RBC Hgb Hct MCV MCH RDW Plt Count Lymph % (Auto) Lymph # Seg Neutrophils % Seg Neuts % (Manual) Lymphocytes % (Manual) Lymphocytes # (Manual) PT INR POC ABG pH POC ABG pO2 ABG pO2 ABG HCO3 ABG O2 Saturation ABG Base Excess ABG Hemoglobin VBG pH Oxyhemoglobin Sodium Potassium Chloride Carbon Dioxide BUN Creatinine Glucose POC Glucose 347 H 332 H Calcium Iron TIBC AST Alkaline Phosphatase Total Creatine Kinase Troponin T Total Protein Albumin LDL Cholesterol Direct HDL Cholesterol Vitamin B12 Folate Urine Creatinine Salicylates Acetaminophen
--- NOTE | 2018-12-08 13:12 | Progress Note ---
Assessment and Plan 73 y/o male who presents with altered mental state, hypothermia, renal failure and hypernatremia and trop leak 1. Resp-Most likely patient is going to need a trach given recurrent episodes of apnea. He will likely be weaned quickly from the vent but would need to be uncapped at night vs PSV when sleeping. Will discuss with CM to see if there is family to obtain consent. 2. Neuro-Unsure of baseline mental state. Is improved compared to my last evaluation. LP negative. Please see number 1. Neuro feels all side effects from stroke. 3. ID-Cefepime over on yesterday. 4. Renal-Appears to be chronic renal failure when reviewing labs from before. Improved and stable 5. Electrolytes- Will defer to nephrology as they are following. 6. Overall prognosis is guarded to poor. Patient is likely a poor candidate for HD given other comorbid disease. Family has not been present at bedside to discuss further options but really need to have a family meeting and discuss goals of care and long-term prognosis as well as need for trach CCT 31 minutes. Subjective Date of service: 12/08/18 Principal diagnosis: low plt Interval history: No acute events. Did PSV yeterday for 10-1300. pLaced back on a rate secondary to apnea. Awakens when named called and today would wiggle toes when asked. REmainder is negative. Reviewed Neuro note in regards to stroke. Objective Vital Signs - 12hr 12/08/18 12/08/18 12/08/18 02:00 03:00 03:48 Temperature 98.8 F Pulse Rate 117 H 115 H Pulse Rate [ Anterior Bilateral Throughout] Pulse Rate [ Apical] Respiratory 29 H 21 Rate Respiratory Rate [Anterior Bilateral Throughout] Blood Pressure 118/78 106/70 O2 Sat by Pulse 100 Oximetry 12/08/18 12/08/18 12/08/18 04:00 04:32 05:00 Temperature Pulse Rate 111 H 110 H 110 H Pulse Rate [ Anterior Bilateral Throughout] Pulse Rate [ Apical] Respiratory 20 23 Rate Respiratory Rate [Anterior Bilateral Throughout] Blood Pressure 106/68 106/68 110/73 O2 Sat by Pulse 100 100 Oximetry 12/08/18 12/08/18 12/08/18 06:00 07:00 08:00 Temperature 98.7 F Pulse Rate 112 H 112 H 112 H Pulse Rate [ Anterior Bilateral Throughout] Pulse Rate [ 112 H Apical] Respiratory 21 26 H 25 H Rate Respiratory Rate [Anterior Bilateral Throughout] Blood Pressure 112/75 117/80 117/77 O2 Sat by Pulse 100 100 100 Oximetry 12/08/18 12/08/18 12/08/18 08:18 08:43 09:00 Temperature Pulse Rate 111 H 113 H Pulse Rate [ 113 H Anterior Bilateral Throughout] Pulse Rate [ Apical] Respiratory 23 Rate Respiratory 25 H Rate [Anterior Bilateral Throughout] Blood Pressure 117/77 119/81 O2 Sat by Pulse 100 99 Oximetry 12/08/18 12/08/18 12/08/18 10:00 11:00 12:00 Temperature Pulse Rate 116 H 120 H 119 H Pulse Rate [ Anterior Bilateral Throughout] Pulse Rate [ 119 H Apical] Respiratory 29 H 30 H 26 H Rate Respiratory Rate [Anterior Bilateral Throughout] Blood Pressure 125/84 129/78 122/80 O2 Sat by Pulse 98 98 100 Oximetry 12/08/18 13:00 Temperature Pulse Rate 119 H Pulse Rate [ Anterior Bilateral Throughout] Pulse Rate [ Apical] Respiratory 22 Rate Respiratory Rate [Anterior Bilateral Throughout] Blood Pressure 116/74 O2 Sat by Pulse 100 Oximetry Constitutional: other (critically ill on vent, awake, eyes open) Eyes: non-icteric ENT: oropharynx moist, other (intubated) Neck: supple Effort: normal Ascultation: Bilateral: clear, diminished breath sounds, rhonchi Percussion: Bilateral: not dull Cardiovascular: other (tachy, RR; no mrg) Gastrointestinal: normoactive bowel sounds, soft, non-tender, non-distended Extremities: no cyanosis, no edema, pink and warm Neurologic: other (eyes open, not following commands for me) Psychiatric: other (unable to assess) CBC and BMP: 12/07/18 02:40 12/08/18 03:43 ABG, PT/INR, D-dimer: ABG POC ABG pH 7.437 (7.35-7.45) 12/04/18 03:48 ABG pH 7.431 pH Units (7.350-7.450) 12/06/18 04:44 ABG pCO2 32.1 mm Hg 12/06/18 04:44 POC ABG pO2 82 (80-105) 12/04/18 03:48 ABG pO2 87.2 mm Hg (80.0-90.0) 12/06/18 04:44 POC ABG HCO3 19.3 (22-26 mml/L) 12/04/18 03:48 POC ABG Total CO2 20 (23-27mmol/L) 12/04/18 03:48 POC ABG O2 Sat 97 12/04/18 03:48 ABG O2 Saturation 97.2 % (95.0-99.0) 12/06/18 04:44 PT/INR, D-dimer PT 17.0 Sec. (12.2-14.9) H 12/04/18 08:01 INR 1.42 (0.87-1.13) H 12/04/18 08:01 Abnormal lab findings: Abnormal Labs 11/29/18 11/29/18 11/29/18 13:07 13:39 13:39 WBC 3.2 L RBC 2.76 L Hgb 10.4 L Hct 32.1 L MCV 116 H MCH 38 H RDW 17.5 H Plt Count 48 L Lymph % (Auto) 5.4 L Lymph # 0.2 L Seg Neutrophils % 89.5 H Seg Neuts % (Manual) Lymphocytes % (Manual) Lymphocytes # (Manual) PT INR POC ABG pH POC ABG pO2 ABG pO2 ABG HCO3 ABG O2 Saturation ABG Base Excess ABG Hemoglobin VBG pH Oxyhemoglobin Sodium 153 H Potassium Chloride 113.3 H Carbon Dioxide 21 L BUN 55 H Creatinine 2.4 H Glucose 260 H POC Glucose 289 H Calcium Iron TIBC AST 68 H Alkaline Phosphatase 239 H Total Creatine Kinase 243 H Troponin T 0.054 H Total Protein 5.8 L Albumin 3.0 L LDL Cholesterol Direct 30 L HDL Cholesterol 63 H Vitamin B12 Folate Urine Creatinine Salicylates Acetaminophen 11/29/18 11/29/18 11/29/18 13:39 13:39 13:39 WBC RBC Hgb Hct MCV MCH RDW Plt Count Lymph % (Auto) Lymph # Seg Neutrophils % Seg Neuts % (Manual) Lymphocytes % (Manual) Lymphocytes # (Manual) PT INR POC ABG pH POC ABG pO2 ABG pO2 ABG HCO3 ABG O2 Saturation ABG Base Excess ABG Hemoglobin VBG pH 7.186 L* Oxyhemoglobin Sodium Potassium Chloride Carbon Dioxide BUN Creatinine Glucose POC Glucose Calcium Iron TIBC AST Alkaline Phosphatase Total Creatine Kinase Troponin T Total Protein Albumin LDL Cholesterol Direct HDL Cholesterol Vitamin B12 Folate Urine Creatinine Salicylates < 0.3 L Acetaminophen < 5.0 L 11/29/18 11/29/18 11/30/18 14:24 21:17 05:50 WBC RBC Hgb Hct MCV MCH RDW Plt Count Lymph % (Auto) Lymph # Seg Neutrophils % Seg Neuts % (Manual) Lymphocytes % (Manual) Lymphocytes # (Manual) PT INR POC ABG pH 7.319 L POC ABG pO2 126 H ABG pO2 203.3 H ABG HCO3 18.5 L ABG O2 Saturation 99.3 H ABG Base Excess -6.2 L ABG Hemoglobin 10.9 L VBG pH Oxyhemoglobin Sodium Potassium Chloride Carbon Dioxide BUN Creatinine Glucose POC Glucose 242 H Calcium Iron TIBC AST Alkaline Phosphatase Total Creatine Kinase Troponin T Total Protein Albumin LDL Cholesterol Direct HDL Cholesterol Vitamin B12 Folate Urine Creatinine Salicylates Acetaminophen 11/30/18 11/30/18 11/30/18 08:52 10:31 10:58 WBC RBC 3.05 L Hgb 11.5 L Hct 35.3 L MCV 116 H MCH 38 H RDW 17.2 H Plt Count 43 L Lymph % (Auto) Lymph # Seg Neutrophils % Seg Neuts % (Manual) Lymphocytes % (Manual) Lymphocytes # (Manual) PT INR POC ABG pH POC ABG pO2 ABG pO2 ABG HCO3 ABG O2 Saturation ABG Base Excess ABG Hemoglobin VBG pH Oxyhemoglobin Sodium 153 H Potassium Chloride 117.2 H Carbon Dioxide 18 L BUN 60 H Creatinine 2.8 H Glucose 216 H POC Glucose 234 H Calcium 8.2 L Iron TIBC AST Alkaline Phosphatase Total Creatine Kinase Troponin T Total Protein Albumin LDL Cholesterol Direct HDL Cholesterol Vitamin B12 Folate Urine Creatinine Salicylates Acetaminophen 11/30/18 11/30/18 11/30/18 12:40 14:20 17:35 WBC RBC Hgb Hct MCV MCH RDW Plt Count Lymph % (Auto) Lymph # Seg Neutrophils % Seg Neuts % (Manual) Lymphocytes % (Manual) Lymphocytes # (Manual) PT INR POC ABG pH POC ABG pO2 ABG pO2 ABG HCO3 ABG O2 Saturation ABG Base Excess ABG Hemoglobin VBG pH Oxyhemoglobin Sodium Potassium Chloride Carbon Dioxide BUN Creatinine Glucose POC Glucose 235 H 182 H Calcium Iron TIBC AST Alkaline Phosphatase Total Creatine Kinase Troponin T Total Protein Albumin LDL Cholesterol Direct HDL Cholesterol Vitamin B12 Folate Urine Creatinine 173.8 H Salicylates Acetaminophen 11/30/18 12/01/1812/01/19 23:53 04:08 04:08 WBC RBC 3.11 L Hgb 11.7 L Hct 35.3 L MCV 113 H MCH 38 H RDW 16.9 H Plt Count 43 L Lymph % (Auto) Lymph # Seg Neutrophils % Seg Neuts % (Manual) Lymphocytes % (Manual) Lymphocytes # (Manual) PT INR POC ABG pH POC ABG pO2 ABG pO2 ABG HCO3 ABG O2 Saturation ABG Base Excess ABG Hemoglobin VBG pH Oxyhemoglobin Sodium 150 H Potassium Chloride 114.6 H Carbon Dioxide 16 L BUN 67 H Creatinine 2.9 H Glucose 193 H POC Glucose 149 H Calcium 8.2 L Iron TIBC AST Alkaline Phosphatase Total Creatine Kinase Troponin T Total Protein Albumin LDL Cholesterol Direct HDL Cholesterol Vitamin B12 Folate Urine Creatinine Salicylates Acetaminophen 12/01/18 12/01/18 12/01/18 04:55 05:11 13:33 WBC RBC Hgb Hct MCV MCH RDW Plt Count Lymph % (Auto) Lymph # Seg Neutrophils % Seg Neuts % (Manual) Lymphocytes % (Manual) Lymphocytes # (Manual) PT INR POC ABG pH POC ABG pO2 ABG pO2 91.9 H ABG HCO3 17.7 L ABG O2 Saturation ABG Base Excess -6.1 L ABG Hemoglobin 11.5 L VBG pH Oxyhemoglobin Sodium Potassium Chloride Carbon Dioxide BUN Creatinine Glucose POC Glucose 236 H 255 H Calcium Iron TIBC AST Alkaline Phosphatase Total Creatine Kinase Troponin T Total Protein Albumin LDL Cholesterol Direct HDL Cholesterol Vitamin B12 Folate Urine Creatinine Salicylates Acetaminophen 12/01/18 12/02/18 12/02/18 18:20 00:17 03:40 WBC RBC Hgb Hct MCV MCH RDW Plt Count Lymph % (Auto) Lymph # Seg Neutrophils % Seg Neuts % (Manual) Lymphocytes % (Manual) Lymphocytes # (Manual) PT INR POC ABG pH POC ABG pO2 ABG pO2 78.0 L ABG HCO3 16.4 L ABG O2 Saturation ABG Base Excess -6.2 L ABG Hemoglobin 11.4 L VBG pH Oxyhemoglobin 94.5 L Sodium Potassium Chloride Carbon Dioxide BUN Creatinine Glucose POC Glucose 177 H 192 H Calcium Iron TIBC AST Alkaline Phosphatase Total Creatine Kinase Troponin T Total Protein Albumin LDL Cholesterol Direct HDL Cholesterol Vitamin B12 Folate Urine Creatinine Salicylates Acetaminophen 12/02/18 12/02/18 12/02/18 05:11 05:26 07:50 WBC 4.1 L RBC 3.01 L Hgb 11.4 L Hct 34.1 L MCV 113 H MCH 38 H RDW 17.3 H Plt Count 40 L Lymph % (Auto) Lymph # Seg Neutrophils % Seg Neuts % (Manual) Lymphocytes % (Manual) Lymphocytes # (Manual) PT INR POC ABG pH POC ABG pO2 ABG pO2 ABG HCO3 ABG O2 Saturation ABG Base Excess ABG Hemoglobin VBG pH Oxyhemoglobin Sodium Potassium 5.6 H D Chloride 113.0 H Carbon Dioxide 16 L BUN 73 H Creatinine 2.8 H Glucose 202 H POC Glucose 179 H Calcium Iron TIBC AST Alkaline Phosphatase Total Creatine Kinase Troponin T Total Protein Albumin LDL Cholesterol Direct HDL Cholesterol Vitamin B12 Folate Urine Creatinine Salicylates Acetaminophen 12/02/18 12/02/18 12/02/18 11:57 18:40 18:43 WBC RBC Hgb Hct MCV MCH RDW Plt Count Lymph % (Auto) Lymph # Seg Neutrophils % Seg Neuts % (Manual) Lymphocytes % (Manual) Lymphocytes # (Manual) PT INR POC ABG pH POC ABG pO2 ABG pO2 ABG HCO3 ABG O2 Saturation ABG Base Excess ABG Hemoglobin VBG pH Oxyhemoglobin Sodium Potassium Chloride Carbon Dioxide BUN Creatinine Glucose POC Glucose 140 H 286 H 261 H Calcium Iron TIBC AST Alkaline Phosphatase Total Creatine Kinase Troponin T Total Protein Albumin LDL Cholesterol Direct HDL Cholesterol Vitamin B12 Folate Urine Creatinine Salicylates Acetaminophen 12/02/18 12/03/18 12/03/18 23:55 04:06 04:06 WBC 4.4 L RBC 2.96 L Hgb 11.3 L Hct 33.1 L MCV 112 H MCH 38 H RDW 16.7 H Plt Count 38 L Lymph % (Auto) Lymph # Seg Neutrophils % Seg Neuts % (Manual) Lymphocytes % (Manual) Lymphocytes # (Manual) PT INR POC ABG pH POC ABG pO2 ABG pO2 ABG HCO3 ABG O2 Saturation ABG Base Excess ABG Hemoglobin VBG pH Oxyhemoglobin Sodium 146 H Potassium Chloride 112.5 H Carbon Dioxide 18 L BUN 71 H Creatinine 2.5 H Glucose 258 H POC Glucose 303 H Calcium 8.3 L Iron TIBC AST Alkaline Phosphatase Total Creatine Kinase Troponin T Total Protein Albumin LDL Cholesterol Direct HDL Cholesterol Vitamin B12 Folate Urine Creatinine Salicylates Acetaminophen 12/03/18 12/03/18 12/03/18 05:17 11:25 17:46 WBC RBC Hgb Hct MCV MCH RDW Plt Count Lymph % (Auto) Lymph # Seg Neutrophils % Seg Neuts % (Manual) Lymphocytes % (Manual) Lymphocytes # (Manual) PT INR POC ABG pH POC ABG pO2 ABG pO2 ABG HCO3 ABG O2 Saturation ABG Base Excess ABG Hemoglobin VBG pH Oxyhemoglobin Sodium Potassium Chloride Carbon Dioxide BUN Creatinine Glucose POC Glucose 328 H 288 H 202 H Calcium Iron TIBC AST Alkaline Phosphatase Total Creatine Kinase Troponin T Total Protein Albumin LDL Cholesterol Direct HDL Cholesterol Vitamin B12 Folate Urine Creatinine Salicylates Acetaminophen 12/04/18 12/04/18 12/04/18 01:15 05:47 08:01 WBC RBC 3.11 L Hgb 11.7 L Hct MCV 115 H MCH 38 H RDW 17.6 H Plt Count 35 L Lymph % (Auto) 6.9 L Lymph # 0.3 L Seg Neutrophils % 87.7 H Seg Neuts % (Manual) Lymphocytes % (Manual) Lymphocytes # (Manual) PT INR POC ABG pH POC ABG pO2 ABG pO2 ABG HCO3 ABG O2 Saturation ABG Base Excess ABG Hemoglobin VBG pH Oxyhemoglobin Sodium Potassium Chloride Carbon Dioxide BUN Creatinine Glucose POC Glucose 282 H 265 H Calcium Iron TIBC AST Alkaline Phosphatase Total Creatine Kinase Troponin T Total Protein Albumin LDL Cholesterol Direct HDL Cholesterol Vitamin B12 Folate Urine Creatinine Salicylates Acetaminophen 12/04/18 12/04/18 12/04/18 08:01 08:01 08:01 WBC RBC Hgb Hct MCV MCH RDW Plt Count Lymph % (Auto) Lymph # Seg Neutrophils % Seg Neuts % (Manual) Lymphocytes % (Manual) Lymphocytes # (Manual) PT 17.0 H INR 1.42 H POC ABG pH POC ABG pO2 ABG pO2 ABG HCO3 ABG O2 Saturation ABG Base Excess ABG Hemoglobin VBG pH Oxyhemoglobin Sodium Potassium Chloride 114.6 H Carbon Dioxide 20 L BUN 62 H Creatinine 2.0 H Glucose 266 H POC Glucose Calcium 8.3 L Iron 20 L TIBC 168 L AST Alkaline Phosphatase 292 H Total Creatine Kinase Troponin T Total Protein 5.2 L Albumin 2.1 L LDL Cholesterol Direct HDL Cholesterol Vitamin B12 Folate 7.24 L Urine Creatinine Salicylates Acetaminophen 12/04/18 12/04/18 12/04/18 11:59 17:59 22:59 WBC RBC Hgb Hct MCV MCH RDW Plt Count Lymph % (Auto) Lymph # Seg Neutrophils % Seg Neuts % (Manual) Lymphocytes % (Manual) Lymphocytes # (Manual) PT INR POC ABG pH POC ABG pO2 ABG pO2 ABG HCO3 ABG O2 Saturation ABG Base Excess ABG Hemoglobin VBG pH Oxyhemoglobin Sodium Potassium Chloride Carbon Dioxide BUN Creatinine Glucose POC Glucose 267 H 226 H 341 H Calcium Iron TIBC AST Alkaline Phosphatase Total Creatine Kinase Troponin T Total Protein Albumin LDL Cholesterol Direct HDL Cholesterol Vitamin B12 Folate Urine Creatinine Salicylates Acetaminophen 12/05/18 12/05/18 12/05/18 03:42 03:42 03:42 WBC RBC 2.89 L Hgb 10.8 L Hct 32.2 L MCV 111 H MCH 37 H RDW 16.8 H Plt Count 47 L Lymph % (Auto) 5.5 L Lymph # 0.3 L Seg Neutrophils % 89.9 H Seg Neuts % (Manual) Lymphocytes % (Manual) Lymphocytes # (Manual) PT INR POC ABG pH POC ABG pO2 ABG pO2 ABG HCO3 ABG O2 Saturation ABG Base Excess ABG Hemoglobin VBG pH Oxyhemoglobin Sodium 146 H Potassium Chloride 113.3 H Carbon Dioxide 19 L BUN 55 H Creatinine 1.8 H Glucose 268 H POC Glucose Calcium 8.3 L Iron TIBC AST Alkaline Phosphatase Total Creatine Kinase Troponin T Total Protein Albumin LDL Cholesterol Direct HDL Cholesterol Vitamin B12 1798 H Folate Urine Creatinine Salicylates Acetaminophen 12/05/18 12/05/18 12/05/18 04:14 18:38 23:59 WBC RBC Hgb Hct MCV MCH RDW Plt Count Lymph % (Auto) Lymph # Seg Neutrophils % Seg Neuts % (Manual) Lymphocytes % (Manual) Lymphocytes # (Manual) PT INR POC ABG pH POC ABG pO2 ABG pO2 75.1 L ABG HCO3 ABG O2 Saturation ABG Base Excess -4.0 L ABG Hemoglobin 8.2 L VBG pH Oxyhemoglobin 94.0 L Sodium Potassium Chloride Carbon Dioxide BUN Creatinine Glucose POC Glucose 150 H 215 H Calcium Iron TIBC AST Alkaline Phosphatase Total Creatine Kinase Troponin T Total Protein Albumin LDL Cholesterol Direct HDL Cholesterol Vitamin B12 Folate Urine Creatinine Salicylates Acetaminophen 12/06/18 12/06/18 12/06/18 04:02 04:02 04:44 WBC RBC 2.88 L Hgb 10.6 L Hct 32.8 L MCV 114 H MCH 37 H RDW 17.3 H Plt Count 59 L Lymph % (Auto) 7.1 L Lymph # 0.4 L Seg Neutrophils % 87.9 H Seg Neuts % (Manual) Lymphocytes % (Manual) Lymphocytes # (Manual) PT INR POC ABG pH POC ABG pO2 ABG pO2 ABG HCO3 ABG O2 Saturation ABG Base Excess -2.7 L ABG Hemoglobin 10.5 L VBG pH Oxyhemoglobin 94.7 L Sodium 146 H Potassium Chloride 111.9 H Carbon Dioxide 21 L BUN 52 H Creatinine 1.7 H Glucose 254 H POC Glucose Calcium 8.3 L Iron TIBC AST Alkaline Phosphatase Total Creatine Kinase Troponin T Total Protein Albumin LDL Cholesterol Direct HDL Cholesterol Vitamin B12 Folate Urine Creatinine Salicylates Acetaminophen 12/06/18 12/06/18 12/06/18 05:59 12:08 17:52 WBC RBC Hgb Hct MCV MCH RDW Plt Count Lymph % (Auto) Lymph # Seg Neutrophils % Seg Neuts % (Manual) Lymphocytes % (Manual) Lymphocytes # (Manual) PT INR POC ABG pH POC ABG pO2 ABG pO2 ABG HCO3 ABG O2 Saturation ABG Base Excess ABG Hemoglobin VBG pH Oxyhemoglobin Sodium Potassium Chloride Carbon Dioxide BUN Creatinine Glucose POC Glucose 270 H 119 H 158 H Calcium Iron TIBC AST Alkaline Phosphatase Total Creatine Kinase Troponin T Total Protein Albumin LDL Cholesterol Direct HDL Cholesterol Vitamin B12 Folate Urine Creatinine Salicylates Acetaminophen 12/07/18 12/07/18 12/07/18 00:00 02:40 02:40 WBC RBC 2.78 L Hgb 10.2 L Hct 31.5 L MCV 113 H MCH 37 H RDW 16.7 H Plt Count 57 L Lymph % (Auto) Lymph # Seg Neutrophils % Seg Neuts % (Manual) 99.0 H Lymphocytes % (Manual) 1.0 L Lymphocytes # (Manual) 0.1 L PT INR POC ABG pH POC ABG pO2 ABG pO2 ABG HCO3 ABG O2 Saturation ABG Base Excess ABG Hemoglobin VBG pH Oxyhemoglobin Sodium 147 H Potassium 3.4 L Chloride 111.6 H Carbon Dioxide 19 L BUN 50 H Creatinine 1.6 H Glucose 243 H POC Glucose 203 H Calcium Iron TIBC AST Alkaline Phosphatase Total Creatine Kinase Troponin T Total Protein Albumin LDL Cholesterol Direct HDL Cholesterol Vitamin B12 Folate Urine Creatinine Salicylates Acetaminophen 12/07/18 12/07/18 12/07/18 05:27 11:49 17:30 WBC RBC Hgb Hct MCV MCH RDW Plt Count Lymph % (Auto) Lymph # Seg Neutrophils % Seg Neuts % (Manual) Lymphocytes % (Manual) Lymphocytes # (Manual) PT INR POC ABG pH POC ABG pO2 ABG pO2 ABG HCO3 ABG O2 Saturation ABG Base Excess ABG Hemoglobin VBG pH Oxyhemoglobin Sodium Potassium Chloride Carbon Dioxide BUN Creatinine Glucose POC Glucose 299 H 249 H 205 H Calcium Iron TIBC AST Alkaline Phosphatase Total Creatine Kinase Troponin T Total Protein Albumin LDL Cholesterol Direct HDL Cholesterol Vitamin B12 Folate Urine Creatinine Salicylates Acetaminophen 12/08/18 12/08/18 12/08/18 00:09 03:43 05:09 WBC RBC Hgb Hct MCV MCH RDW Plt Count Lymph % (Auto) Lymph # Seg Neutrophils % Seg Neuts % (Manual) Lymphocytes % (Manual) Lymphocytes # (Manual) PT INR POC ABG pH POC ABG pO2 ABG pO2 ABG HCO3 ABG O2 Saturation ABG Base Excess ABG Hemoglobin VBG pH Oxyhemoglobin Sodium Potassium Chloride 110.9 H Carbon Dioxide 21 L BUN 53 H Creatinine 1.6 H Glucose 311 H POC Glucose 312 H 363 H Calcium Iron TIBC AST Alkaline Phosphatase Total Creatine Kinase Troponin T Total Protein Albumin LDL Cholesterol Direct HDL Cholesterol Vitamin B12 Folate Urine Creatinine Salicylates Acetaminophen 12/08/18 12/08/18 07:35 12:18 WBC RBC Hgb Hct MCV MCH RDW Plt Count Lymph % (Auto) Lymph # Seg Neutrophils % Seg Neuts % (Manual) Lymphocytes % (Manual) Lymphocytes # (Manual) PT INR POC ABG pH POC ABG pO2 ABG pO2 ABG HCO3 ABG O2 Saturation ABG Base Excess ABG Hemoglobin VBG pH Oxyhemoglobin Sodium Potassium Chloride Carbon Dioxide BUN Creatinine Glucose POC Glucose 347 H 332 H Calcium Iron TIBC AST Alkaline Phosphatase Total Creatine Kinase Troponin T Total Protein Albumin LDL Cholesterol Direct HDL Cholesterol Vitamin B12 Folate Urine Creatinine Salicylates Acetaminophen
--- NOTE | 2018-12-08 16:34 | Progress Note ---
Assessment and Plan Cultures: 11/29 BCx - NGTD 11/29 UCx - NGTD serum Crypto Ag negative Assessment: : 73 yo M PMHx HIV, HTN, HLD admitted with AMS 1. SIRS possible sepsis - hypothermia and pancytopenia on admission and negative blood cultures. Unclear source. Hypothermia resolved. Etiology ?hormonal (thyroid/Daviess's) v/s opportunistic fungi like histoplasma seen in HIV patients causing Daviess's (however last reported CD4 250) 2. Altered mental status - unclear?. HIV related? some better. Possibly due to ongoing microvascular disease with ischemia. Able to passively move neck on exam, but difficult to assess for meningismus. Continue empiric antibiotics for now with cefepime 3. HIV - Well controlled at recent visit. Accidentally ordered qualitative VL last time, but genotype was unable to be performed thus meaning the VL was at least under 1000, and most likely undetectable. CD4 ~ 250. Continue home regimen of raltegravir, lamivudine, abacavir, zidovudine. 4. CONNIE -better 5. Pancytopenia mainly Thrombocytopenia: ? HIV, worsening 6. Acute respiratory failure: intubated for airway protection. Recommendations: - Antibiotics finished yesterday. Stable off therapy. Continue without ABx - continue ART - abacavir, raltegravir, zidovudine. Renally dosed lamivudine to 150mg daily. - borderline GFR for adjustment to full dose lamovudine. Will follow to monitor for improvement. Will follow. Belkis Alcantara MD [facility] M: [phone] O: [phone] F: [phone] Subjective Date of service: 12/08/18 Principal diagnosis: low plt Interval history: Intubated, eyes open but does not follow commands. Objective - Exam Narrative Exam: Physical Exam: Constitutional: Eyes open, does not follow commands. Head, Ears, Nose: Normocephalic, atraumatic. External ears, nose normal Eyes: Conjunctivae/corneas clear. No icterus. No ptosis. Neck: Supple, no meningeal signs Oral: intubated Cardiovascular: S1, S2 normal. Respiratory: Good air entry, clear to auscultation bilaterally GI: Soft, non-tender; bowel sounds normal. No peritoneal signs. Musculoskeletal: No pedal edema, no cyanosis. Skin: No rash or abscess Hem/Lymphatic: No palpable cervical or supraclavicular nodes. No lymphangitis Neurological: Intubated, non-responsive - Constitutional Vitals: Vital Signs Temp Pulse Resp BP Pulse Ox 98.0 F 115 H 23 111/62 100 12/08/18 12:00 12/08/18 16:00 12/08/18 16:00 12/08/18 16:00 12/08/18 16:00 Temperature -Last 24 Hours Temperature 98.0 F Temperature 98.7 F Temperature 98.8 F Temperature 98.1 F Temperature 97.8 F - Labs CBC & Chem 7: 12/07/18 02:40 12/08/18 03:43 Labs: Abnormal lab results 12/07/18 12/08/18 12/08/18 Range/Units 17:30 00:09 03:43 Chloride 110.9 H (98-107) mmol/L Carbon Dioxide 21 L (22-30) mmol/L BUN 53 H (9-20) mg/dL Creatinine 1.6 H (0.8-1.5) mg/dL Glucose 311 H (75-100) mg/dL POC Glucose 205 H 312 H (70-105) 12/08/18 12/08/18 12/08/18 Range/Units 05:09 07:35 12:18 Chloride (98-107) mmol/L Carbon Dioxide (22-30) mmol/L BUN (9-20) mg/dL Creatinine (0.8-1.5) mg/dL Glucose (75-100) mg/dL POC Glucose 363 H 347 H 332 H (70-105)
[2018-12-08] MEDS: COLACE PO SCH ×2 (17:40→21:17)
--- NOTE | 2018-12-08 18:10 | Hem/Onc Progress Note ---
Assessment and Plan 1. Thrombocytopenia. The patient has multiple issues, which include HIV/immunosuppression medications. 2. At this time, there is no active bleeding. 3. h/o Unresponsive. 4. Leukopenia. 5. Macrocytosis. This may be medication related. 6. History of diabetes. 7. History of hypertension. 8. History of cerebrovascular accident. 9. History of dementia. 10. Chronic obstructive pulmonary disease. 11. Renal impairment. 12. Metabolic encephalopathy. 13. h/o Intubation. Respiratory support. 14. I will follow the patient during inpatient stay. We will do deficiency investigations and follow the patient. B12 is normal. ID following for HIV 12/08- s/p plt transfusion ID following for LP on folic acid - as folate was low awake - Patient Problems (1) Thrombocytopenia Current Visit: Yes Status: Acute Subjective Date of service: 12/08/18 Principal diagnosis: low plt Interval history: s/p LP on vent - awake Objective - Exam Narrative Exam: Pain - not verbal General appearance - not verbal - intubated Performance status complete dependence Eyes - no icterus ENT - no bleeding LNs cervical - not palpable Neck - no LN Respiratory Normal Breath sounds - CTA anteriorly CVS S1 S2 + Extremities no edema General GI Soft Rectal deferred male - deferred Skin warm Musculoskeletal not moving Neurologically non verbal - awake - Constitutional Vitals: Last Vital Signs Temp 98.0 F 12/08/18 12:00 Pulse 119 H 12/08/18 17:09 Resp 20 12/08/18 17:09 BP 111/62 12/08/18 17:00 Pulse Ox 99 12/08/18 17:00 - Labs Lab Results: Laboratory Results - last 24 hr 12/02/18 12/06/18 12/07/18 Unknown Unknown 17:30 Sodium Potassium Chloride Carbon Dioxide Anion Gap BUN Creatinine Estimated GFR BUN/Creatinine Ratio Glucose POC Glucose 205 H Calcium CSF VDRL Nonreactive Miscellaneous Test Flexitest 1 12/08/18 12/08/18 12/08/18 00:09 03:43 05:09 Sodium 143 Potassium 4.1 D Chloride 110.9 H Carbon Dioxide 21 L Anion Gap 15 BUN 53 H Creatinine 1.6 H Estimated GFR 51 BUN/Creatinine Ratio 33 Glucose 311 H POC Glucose 312 H 363 H Calcium 8.4 CSF VDRL Miscellaneous Test 12/08/18 12/08/18 07:35 12:18 Sodium Potassium Chloride Carbon Dioxide Anion Gap BUN Creatinine Estimated GFR BUN/Creatinine Ratio Glucose POC Glucose 347 H 332 H Calcium CSF VDRL Miscellaneous Test Medications & Allergies - Medications Allergies/Adverse Reactions: Allergies No Known Allergies Allergy (Unverified 03/29/16 00:43) Home Medications: Home Medications Medication Instructions Recorded Confirmed Last Taken Type Aspirin [Aspirin BABY CHEW TAB] 81 mg PO QDAY #30 tab.chew 11/15/17 11/29/18 Unknown Rx Amlodipine Besylate 10 mg PO QDAY 05/21/18 11/29/18 Unknown History Carvedilol 6.25 mg PO BID 05/21/18 11/29/18 Unknown History Isentress 400 mg PO Q12HR 05/21/18 11/29/18 Unknown History Rosuvastatin Calcium 10 mg PO DAILY 05/21/18 11/29/18 Unknown History Memantine [Namenda] 5 mg PO QDAY #30 tablet 11/01/18 11/29/18 Unknown Rx Albuterol Sulfate [Albuterol 0.63% 0.63 mg IH TID PRN 30 Days ml 11/07/18 11/29/18 Unknown Rx NEBS] AtorvaSTATin [Lipitor] 20 mg PO QDAY #30 tablet 11/07/18 11/29/18 Unknown Rx Famotidine [Pepcid] 10 mg PO BID #60 tablet 11/07/18 11/29/18 Unknown Rx Ipratropium/Albuterol Sulfate 1 ampul IH Q6HR 30 Days ampul.neb 11/07/18 11/29/18 Unknown Rx [DUONEB *Not for PRN Use*] Tamsulosin [Flomax] 0.4 mg PO QHS #30 capsule 11/07/18 11/29/18 Unknown Rx Zidovudine 300 mg PO DAILY 11/09/18 11/29/18 Unknown History Insulin Regular, Human [HumuLIN R] 0 unit SQ AC #1 vial 11/12/18 11/29/18 Unknown Rx Active Medications: Generic Name Dose Route Start Last Admin Trade Name Freq PRN Reason Stop Dose Admin Abacavir Sulfate 600 mg 11/30/18 16:00 12/08/18 11:06 Ziagen PO 600 mg DAILY KEN Administration Albuterol 2.5 mg 11/30/18 00:17 Proventil IH Q4HRT PRN Shortness Of Breath Albuterol/Ipratropium 1 ampul 11/30/18 08:00 12/08/18 17:09 Duoneb *Not For Prn Use* IH 1 ampul QIDRT KEN Administration Lipase/Protease/Amylase 1 each 12/03/18 10:42 Pancreazmahendra Manning 10,500 Unit FEEDTUBE PRN PRN For Clogged Feeding Tube Docusate Sodium 100 mg 12/08/18 13:00 12/08/18 17:40 Colace PO 100 mg BID KEN Administration Famotidine 10 mg 12/04/18 11:00 12/08/18 11:06 Pepcid PO 10 mg BID KEN Administration Fentanyl 50 mcg 12/04/18 17:28 12/05/18 03:01 Sublimaze IV 50 mcg Q2H PRN Administration INCREASED AGITATION Folic Acid 1 mg 12/04/18 12:00 12/08/18 11:06 Folvite PO 1 mg QDAY KEN Administration Cefepime HCl 2 gm in 100 mls @ 200 mls/hr 11/30/18 22:00 12/07/18 22:40 Maxipime/Ns 2 Gm/100 Ml IV 200 mls/hr Q24H KEN Administration Protocol Insulin Glargine 10 units 12/08/18 11:00 12/08/18 11:10 Lantus SUB-Q 10 units Q12H KEN Administration Insulin Human Lispro 0 unit 11/30/18 07:00 12/08/18 17:50 Humalog SUB-Q 3 unit Q6HR KEN Administration Protocol Lamivudine 150 mg 12/06/18 10:00 12/08/18 11:20 Epivir PO 150 mg DAILY KEN Administration Metoclopramide HCl 5 mg 11/30/18 00:22 Reglan IV Q6H PRN Nausea And Vomiting Ondansetron HCl 4 mg 11/30/18 00:06 Zofran IV Q8H PRN Nausea And Vomiting Raltegravir 400 mg 11/30/18 16:00 12/08/18 11:06 Isentress PO 400 mg BID KEN Administration Simple Syrup 15 ml 12/03/18 10:42 Simple Syrup FEEDTUBE PRN PRN Hypoglycemia Simple Syrup 30 ml 12/03/18 10:42 Simple Syrup FEEDTUBE PRN PRN Hypoglycemia Sodium Bicarbonate 325 mg 12/03/18 10:42 Sodium Bicarbonate FEEDTUBE PRN PRN For Clogged Feeding Tube Sodium Chloride 10 ml 11/30/18 10:00 12/08/18 11:07 Sodium Chloride Flush Syringe 10 Ml IV 10 ml BID KEN Administration Sodium Chloride 10 ml 11/30/18 00:06 Sodium Chloride Flush Syringe 10 Ml IV PRN PRN LINE FLUSH Zidovudine 300 mg 11/30/18 16:00 12/08/18 11:07 Retrovir PO 300 mg BID KEN Administration
[2018-12-08] MEDS: MAXIPIME/NS 2 GM/100 ML 2 GM/100 ML BAG IV SCH (21:17)
[2018-12-09] MEDS: HumaLOG SUB-Q SCH ×5 (00:44→23:55)
[2018-12-09 05:58] LABS: Calcium 8.2 mg/dL (8.4-10.2)
[2018-12-09] MEDS: DUONEB *Not for PRN Use IH SCH ×4 (07:52→21:37)
[2018-12-09] MEDS ORDERED: FLEET PR ONE (08:17)
--- NOTE | 2018-12-09 08:25 | Progress Note ---
Assessment and Plan Assessment and plan: Patient is a 73 yo man from [facility] with severe end-stage co-morbities including HIV, type 2 DM, NSTEMI type 2, hyperkalemia, hypernatremia, malnutrition, severe CHF with EF 15-20%, Dementia, CVA with SAH after fall here at [facility] on 05/22/18 with transferred to [facility], recurrent bouts of hypog lycmia, who had been admitted 3 times this month of November 2018. Initially he was admitted on 10/24/18 to 11/01/18 due to AMS, new CVA was ruled out by MRI but did show chronic infarcts in the right parietal lobe and the right MCA [place] territory and chronic lacunar infarct in the right paracentral [place] area. It was recommended that patient go to SNF but refused and took him home. He returned 2 days later due to hypoglycemia, it appears he wasn't eating enough but still taking DM medications. He was then discharged to [facility] on 11/07/2018. He returned 2 days later on 11/09/2018 due to hypoxemia and hypoglycemia again. He was discharged back to the [place] on . Now he returns to the ED on 11/29/18 with severe worsening AMS GCS of 5 requiring Intubation. I do not know why he is on Fentanyl drip. * CT head without contrast Impression: There is continued extensive microvascula r angiopathy as detailed...without CT evidence of acute ICH. * pCXR Impression: Minimal interstitial edema, ngt in stomach, needs advancing 5-10 cm, borderline cardiomegaly, no consolidation or effusion * Abd XRAY after NGT advancement, shows it is in the correct position * Prior admissions was secondary to Hypoglycemia * Neurology believes that prior stroke may be playing a part although imaging studies do not show any new stroke Acute Metabolic Encephalopathy, poa, work up in progress: ? secondary to HIV, consulted Neurology, input noted,MRI still pending, LP negative Acute respiratory failure >96 hours poa s/p ETT placement: consulted Pulmo nology, input noted- ON PS may consider extubation if tolerating SIRS with possible Sepsis: Continue cefepime, to complete today. ID following, awaiting cultures. Acute on chronic systolic heart failure (congestive heart failure) 15-20%, mild: treat medically, bp borderline too low for IV lasix, consulted Cardiology, input noted HIV (human immunodeficiency virus infection): ID consulted, input noted Acute renal insufficiency, ATN + vasomotor nephropathy, poa: monitor uop q shift, nephrology consulted, urine electrolytes, strict I/O, monitor uop q shift, monitor fluid balance, monitor serum creatnine, some improvement noted Type 2 DM on Insulin with recurrent hypoglycemia: treat with SSI, ADA, ADJUST FOR BETTER CONTROL Severe malnutrition, as evidence by decubitus ulcers, inadequate nutritional intake, and muscle wasting. poa: consult Spectrographer Decubitus ulcers at least stage 3: Consult wound care Hypernatremia: Likely from dehydration, treat with free water, monitor bmp closely DVT prophylaxis: SCD to BLE while in bed, on d/c a/c Severe pancytopenia, plt count only 48: consulted Heme/onc Thrombocytopenia: GAVE a unit a plt Disposition: continue inpatient ICU care SIRS possible sepsis, poa - ID is following, negative blood cultures. Unclear source. CC-35 mins no family present poor prognosis The high probability of a clinically significant, sudden or life threatening deterioration of the [pulmonary, neuro] system(s) required my full and direct attention, intervention and personal management. The aggregate critical care time was [35] minutes. This time is in addition to time spent performing reported procedures but includes the following: [x] Data Review and interpretation [x] Patient assessment and monitoring of vital signs [x] Documentation [x] Medication orders and management History Interval history: Patient was seen and examined. Follow-up on current diagnosis of AMS. No overnight events reported to me. Imaging, nursing note, chart, labs and old chart reviewed. No family at bedside, patient opens eyes at verbal stimuli but not following any instruction Hospitalist Physical - Physical exam Narrative exam: Gen: cachetic, intubated and sedated on fentanyl drip HEENT: NCAT, pupils pinpoint Neck: supple, no adenopathy, no thyromegaly, CVS/Heart: RRR, normal S1S2, pulses present bilaterally Chest/Lungs: diminished BS, Symmetrical chest expansion, good air entry bilaterally GI/Abdomen: soft, NTND, hypoactive, no guarding or rebound /Bladder: no suprapubic tenderness, no CVA or paraspinal tenderness Extermity/Skin: trace edema, bilateral, no cyanosis, see skin documentation for detail exam Neuro: intubated, not following commands despite no sedation Psych: intubated - Constitutional Vitals: Temp Pulse Resp BP Pulse Ox 98.7 F 114 H 26 H 113/68 100 12/09/18 04:00 12/09/18 08:02 12/09/18 08:02 12/09/18 07:56 12/09/18 07:56 General appearance: Present: no acute distress, other (intubated on cpap) Results - Labs CBC & Chem 7: 12/07/18 02:40 12/09/18 04:38 Labs: Laboratory Last Values WBC 7.2 K/mm3 (4.5-11.0) 12/07/18 02:40 RBC 2.78 M/mm3 (3.65-5.03) L 12/07/18 02:40 Hgb 10.2 gm/dl (11.8-15.2) L 12/07/18 02:40 Hct 31.5 % (35.5-45.6) L 12/07/18 02:40 MCV 113 fl (84-94) H 12/07/18 02:40 MCH 37 pg (28-32) H 12/07/18 02:40 MCHC 32 % (32-34) 12/07/18 02:40 RDW 16.7 % (13.2-15.2) H 12/07/18 02:40 Plt Count 57 K/mm3 (140-440) L 12/07/18 02:40 Lymph % (Auto) 7.1 % (13.4-35.0) L 12/06/18 04:02 [place] % (Auto) 4.3 % (0.0-7.3) 12/06/18 04:02 Eos % (Auto) 0.6 % (0.0-4.3) 12/06/18 04:02 Baso % (Auto) 0.1 % (0.0-1.8) 12/06/18 04:02 Lymph # 0.4 K/mm3 (1.2-5.4) L 12/06/18 04:02 [place] # 0.3 K/mm3 (0.0-0.8) 12/06/18 04:02 Eos # 0.0 K/mm3 (0.0-0.4) 12/06/18 04:02 Baso # 0.0 K/mm3 (0.0-0.1) 12/06/18 04:02 Add Manual Diff Complete 12/07/18 02:40 Total Counted 100 12/07/18 02:40 Seg Neutrophils % Plant Wrapper 12/07/18 02:40 Seg Neuts % (Manual) 99.0 % (40.0-70.0) H 12/07/18 02:40 0 % 12/07/18 02:40 1.0 % (13.4-35.0) L 12/07/18 02:40 Reactive Lymphs % (Man) 0 % 12/07/18 02:40 0 % (0.0-7.3) 12/07/18 02:40 0 % (0.0-4.3) 12/07/18 02:40 0 % (0.0-1.8) 12/07/18 02:40 0 % 12/07/18 02:40 0 % 12/07/18 02:40 0 % 12/07/18 02:40 0 % 12/07/18 02:40 Nucleated RBC % Not Reportable 12/07/18 02:40 Seg Neutrophils # 5.6 K/mm3 (1.8-7.7) 12/06/18 04:02 Seg Neutrophils # Man 7.1 K/mm3 (1.8-7.7) 12/07/18 02:40 Band Neutrophils # 0.0 K/mm3 12/07/18 02:40 0.1 K/mm3 (1.2-5.4) L 12/07/18 02:40 Abs React Lymphs (Man) 0.0 K/mm3 12/07/18 02:40 0.0 K/mm3 (0.0-0.8) 12/07/18 02:40 0.0 K/mm3 (0.0-0.4) 12/07/18 02:40 0.0 K/mm3 (0.0-0.1) 12/07/18 02:40 0.0 K/mm3 12/07/18 02:40 0.0 K/mm3 12/07/18 02:40 0.0 K/mm3 12/07/18 02:40 Blast Cells # 0.0 K/mm3 12/07/18 02:40 WBC Morphology Not Reportable 12/07/18 02:40 Hypersegmented Neuts Not Reportable 12/07/18 02:40 Hyposegmented Neuts Not Reportable 12/07/18 02:40 Hypogranular Neuts Not Reportable 12/07/18 02:40 Not Reportable 12/07/18 02:40 Not Reportable 12/07/18 02:40 Not Reportable 12/07/18 02:40 Not Reportable 12/07/18 02:40 Not Reportable 12/07/18 02:40 Not Reportable 12/07/18 02:40 Consistent w auto 12/07/18 02:40 Not Reportable 12/07/18 02:40 Plt Clumps, EDTA Not Reportable 12/07/18 02:40 Not Reportable 12/07/18 02:40 Not Reportable 12/07/18 02:40 Not Reportable 12/07/18 02:40 Plt Morphology Comment Not Reportable 12/07/18 02:40 RBC Morphology Not Reportable 12/07/18 02:40 Dimorphic RBCs Not Reportable 12/07/18 02:40 Not Reportable 12/07/18 02:40 Not Reportable 12/07/18 02:40 1+ 12/07/18 02:40 1+ 12/07/18 02:40 Not Reportable 12/07/18 02:40 1+ 12/07/18 02:40 Not Reportable 12/07/18 02:40 Not Reportable 12/07/18 02:40 Not Reportable 12/07/18 02:40 Not Reportable 12/07/18 02:40 Rare 12/07/18 02:40 Not Reportable 12/07/18 02:40 Not Reportable 12/07/18 02:40 Not Reportable 12/07/18 02:40 Not Reportable 12/07/18 02:40 Few 12/07/18 02:40 Not Reportable 12/07/18 02:40 Not Reportable 12/07/18 02:40 Few 12/07/18 02:40 Acanthocytes (Spur) Not Reportable 12/07/18 02:40 Rouleaux Not Reportable 12/07/18 02:40 Not Reportable 12/07/18 02:40 Not Reportable 12/07/18 02:40 Not Reportable 12/07/18 02:40 Not Reportable 12/07/18 02:40 Hem Pathologist Commnt No 12/07/18 02:40 PT 17.0 Sec. (12.2-14.9) H 12/04/18 08:01 INR 1.42 (0.87-1.13) H 12/04/18 08:01 APTT 36.4 Sec. (24.2-36.6) 12/04/18 08:01 POC ABG pH 7.437 (7.35-7.45) 12/04/18 03:48 ABG pH 7.431 pH Units (7.350-7.450) 12/06/18 04:44 POC ABG pCO2 39.5 (35-45) 11/29/18 14:24 ABG pCO2 32.1 mm Hg 12/06/18 04:44 POC ABG pO2 82 (80-105) 12/04/18 03:48 ABG pO2 87.2 mm Hg (80.0-90.0) 12/06/18 04:44 POC ABG HCO3 19.3 (22-26 mml/L) 12/04/18 03:48 ABG HCO3 20.9 mmol/L (20.0-26.0) 12/06/18 04:44 POC ABG Total CO2 20 (23-27mmol/L) 12/04/18 03:48 POC ABG O2 Sat 97 12/04/18 03:48 ABG O2 Saturation 97.2 % (95.0-99.0) 12/06/18 04:44 ABG O2 Content 14.1 (0.0-44) 12/06/18 04:44 POC ABG Base Excess -5 ((-2) - (+3)mmol/L) 12/04/18 03:48 ABG Base Excess -2.7 mmol/L (-2.0-3.0) L 12/06/18 04:44 ABG Hemoglobin 10.5 gm/dl (14.0-18.0) L 12/06/18 04:44 ABG Carboxyhemoglobin 2.1 % (0.0-5.0) 12/06/18 04:44 ABG Methemoglobin 0.5 % (0.0-1.5) 12/06/18 04:44 VBG pH 7.186 (7.320-7.420) L* 11/29/18 13:39 94.7 % (95.0-99.0) L 12/06/18 04:44 30 % 12/06/18 04:44 Sodium 143 mmol/L (137-145) 12/09/18 04:38 Potassium 3.6 mmol/L (3.6-5.0) 12/09/18 04:38 Chloride 111.5 mmol/L (98-107) H 12/09/18 04:38 Carbon Dioxide 23 mmol/L (22-30) 12/09/18 04:38 12 mmol/L 12/09/18 04:38 BUN 55 mg/dL (9-20) H 12/09/18 04:38 1.7 mg/dL (0.8-1.5) H 12/09/18 04:38 Estimated GFR 48 ml/min 12/09/18 04:38 32 % 12/09/18 04:38 Glucose 246 mg/dL (75-100) H 12/09/18 04:38 POC Glucose 271 (70-105) H 12/09/18 05:33 Lactic Acid 1.30 mmol/L (0.7-2.0) 11/29/18 14:42 Calcium 8.2 mg/dL (8.4-10.2) L 12/09/18 04:38 Phosphorus 2.80 mg/dL (2.5-4.5) 12/04/18 08:01 Magnesium 2.10 mg/dL (1.7-2.3) 12/04/18 08:01 Iron 20 ug/dL (49-181) L 12/04/18 08:01 TIBC 168 mcg/dL (250-450) L 12/04/18 08:01 174.3 ng/mL (13.0-400.0) 12/04/18 08:01 0.50 mg/dL (0.1-1.2) 12/04/18 08:01 AST 24 units/L (5-40) 12/04/18 08:01 ALT 32 units/L (7-56) 12/04/18 08:01 292 units/L (35-129) H 12/04/18 08:01 28.0 umol/L (25-60) 11/29/18 13:39 243 units/L (55-170) H 11/29/18 13:39 0.054 ng/mL (0.00-0.029) H 11/29/18 13:39 5.2 g/dL (6.3-8.2) L 12/04/18 08:01 2.1 g/dL (3.9-5) L 12/04/18 08:01 0.7 % 12/04/18 08:01 Triglycerides 68 mg/dL (2-149) 11/29/18 13:39 Cholesterol 95 mg/dL (50-199) 11/29/18 13:39 30 mg/dL (50-130) L 11/29/18 13:39 63 mg/dL (40-59) H 11/29/18 13:39 1.50 % 11/29/18 13:39 Vitamin B12 1798 pg/mL (211-911) H 12/05/18 03:42 7.24 ng/mL (7.3-26.0) L 12/04/18 08:01 14.8 mcg/dL () 12/01/18 09:08 Yellow (Yellow) 11/29/18 13:16 Clear (Clear) 11/29/18 13:16 5.0 (5.0-7.0) 11/29/18 13:16 Ur Specific [place] 1.018 (1.003-1.030) 11/29/18 13:16 30 mg/dl mg/dL (Negative) 11/29/18 13:16 Neg mg/dL (Negative) 11/29/18 13:16 Neg mg/dL (Negative) 11/29/18 13:16 Neg (Negative) 11/29/18 13:16 Neg (Negative) 11/29/18 13:16 Neg (Negative) 11/29/18 13:16 < 2.0 mg/dL (<2.0) 11/29/18 13:16 Ur Leukocyte Esterase Neg (Negative) 11/29/18 13:16 5.0 /HPF (0.0-6.0) 11/29/18 13:16 2.0 /HPF (0.0-6.0) 11/29/18 13:16 1+ /HPF (Negative) 11/29/18 13:16 173.8 mg/dL (0.1-20.0) H 11/30/18 14:20 18 mmol/L 11/30/18 14:20 Clear 12/02/18 Unknown Colorless 12/02/18 Unknown 2 /mm3 (1-10) 12/02/18 Unknown 1 /mm3 (0-0) 12/02/18 Unknown CSF Seg Neutrophils 50.0 % (0-6) 12/02/18 Unknown 0 % (40-80) 12/02/18 Unknown CSF Reactive Lymphs 0 % 12/02/18 Unknown 50.0 % (15-45) 12/02/18 Unknown 0 % 12/02/18 Unknown 0 % 12/02/18 Unknown C 12/02/18 Unknown 122 mg/dL 12/02/18 Unknown 22 mg/dL 12/02/18 Unknown Nonreactive (Nonreactive) 12/02/18 Unknown Random Vancomycin 10.7 ug/mL (0-40.0) 12/01/18 13:20 Salicylates < 0.3 mg/dL (2.8-20.0) L 11/29/18 13:39 Presumptive negative 11/29/18 13:16 Presumptive negative 11/29/18 13:16 Acetaminophen < 5.0 ug/mL (10.0-30.0) L 11/29/18 13:39 Ur Barbiturates Screen Presumptive negative 11/29/18 13:16 Ur Phencyclidine Scrn Presumptive negative 11/29/18 13:16 Ur Amphetamines Screen Presumptive negative 11/29/18 13:16 U Benzodiazepines Scrn Presumptive negative 11/29/18 13:16 Presumptive negative 11/29/18 13:16 U Marijuana (THC) Screen Presumptive negative 11/29/18 13:16 Disclamer 11/29/18 13:16 Non-reactive (NonReactive) 12/01/18 04:08 RPR Nonreactive (Nonreactive) 12/02/18 17:04 Hepatitis A IgM Ab Non-reactive (NonReactive) 12/02/18 17:04 Hep Bs Antigen Non-reactive (Negative) 12/02/18 17:04 Hep B Core IgM Ab Non-reactive (NonReactive) 12/02/18 17:04 Non-reactive (NonReactive) 12/02/18 17:04 Flexitest 1 12/06/18 Unknown Blood Type B POSITIVE 12/06/18 04:02 Antibody Screen Negative 11/29/18 13:39 Active Medications - Current Medications Current Medications: Generic Name Dose Route Start Last Admin Trade Name Freq PRN Reason Stop Dose Admin Abacavir Sulfate 600 mg 11/30/18 16:00 12/08/18 11:06 Ziagen PO 600 mg DAILY KEN Administration Albuterol 2.5 mg 11/30/18 00:17 Proventil IH Q4HRT PRN Shortness Of Breath Albuterol/Ipratropium 1 ampul 11/30/18 08:00 12/09/18 07:52 Duoneb *Not For Prn Use* IH 1 ampul QIDRT KEN Administration Lipase/Protease/Amylase 1 each 12/03/18 10:42 Pancreaze 10,500 Unit FEEDTUBE PRN PRN For Clogged Feeding Tube Docusate Sodium 100 mg 12/08/18 13:00 12/08/18 21:17 Colace PO 100 mg BID KNE Administration Famotidine 10 mg 12/04/18 11:00 12/08/18 21:18 Pepcid PO 10 mg BID KEN Administration Fentanyl 50 mcg 12/04/18 17:28 12/05/18 03:01 Sublimaze IV 50 mcg Q2H PRN Administration INCREASED AGITATION Folic Acid 1 mg 12/04/18 12:00 12/08/18 11:06 Folvite PO 1 mg QDAY KEN Administration Cefepime HCl 2 gm in 100 mls @ 200 mls/hr 11/30/18 22:00 12/08/18 21:17 Maxipime/Ns 2 Gm/100 Ml IV 200 mls/hr Q24H KEN Administration Protocol Insulin Glargine 12 units 12/09/18 12:00 Lantus SUB-Q Q12H KEN Insulin Human Lispro 0 unit 11/30/18 07:00 12/09/18 06:20 Humalog SUB-Q 6 unit Q6HR KEN Administration Protocol Lamivudine 150 mg 12/06/18 10:00 12/08/18 11:20 Epivir PO 150 mg DAILY KEN Administration Metoclopramide HCl 5 mg 11/30/18 00:22 Reglan IV Q6H PRN Nausea And Vomiting Ondansetron HCl 4 mg 11/30/18 00:06 Zofran IV Q8H PRN Nausea And Vomiting Raltegravir 400 mg 11/30/18 16:00 12/08/18 21:18 Isentress PO 400 mg BID KEN Administration Simple Syrup 15 ml 12/03/18 10:42 Simple Syrup FEEDTUBE PRN PRN Hypoglycemia Simple Syrup 30 ml 12/03/18 10:42 Simple Syrup FEEDTUBE PRN PRN Hypoglycemia Sodium Bicarbonate 325 mg 12/03/18 10:42 Sodium Bicarbonate FEEDTUBE PRN PRN For Clogged Feeding Tube Sodium Biphosphate/Sodium Phosphate 133 ml 12/09/18 08:17 Fleet OR 12/09/18 08:18 ONCE ONE Sodium Chloride 10 ml 11/30/18 10:00 12/08/18 21:17 Sodium Chloride Flush Syringe 10 Ml IV 10 ml BID KEN Administration Sodium Chloride 10 ml 11/30/18 00:06 Sodium Chloride Flush Syringe 10 Ml IV PRN PRN LINE FLUSH Zidovudine 300 mg 11/30/18 16:00 12/08/18 21:19 Retrovir PO 300 mg BID KEN Administration Nutrition/Malnutrition Assess - Dietary Evaluation Nutrition/Malnutrition Findings: Nutrition Notes Start: 11/30/18 08:33 Freq: Status: Active Protocol: Document 12/08/18 11:11 LM (Rec: 12/08/18 11:18 LM [email or web address]) Nutrition Notes Initial or Follow up Reassessment Current Diagnosis Acute Kidney Injury,COPD, Diabetes,Hypertension Other Pertinent Diagnosis dementia, HIV, AMS Current Diet Nepro at 50 ml/hr Labs/Tests BUN 53 Cr 1.6 BG 311 Pertinent Medications Humalog Height 6 ft 4 in Weight 84.6 kg [place] Body Weight (kg) 91.81 BMI 22.6 Subjective/Other Information Nepro running at 50 ml/hr at time of visit. Pt tolerating TF Percent of energy/protein needs met: 95%/100% Burn Absent Trauma Absent #1 Nutrition Diagnosis Inadequate oral intake Diagnosis Progress(for reassessment Continues documentation) Is patient on ventilator? Yes Is Patient Ambulatory and/or Out of Bed No REE-([facility]-confined to bed) 2031.084 Kcal/Kg value to use for calculation 27 Approximate Energy Requirements Using 2284 kcal/Kg Calculation Used for Recommendations Kcal/kg Additional Notes Protein: 95-158g (1.2-2g/kg) Fluids 1 ml/kcal or per MD Nutrition Intervention Change Diet Order: Continue TF Nutrition Support: Nepro with Carbsteady at 50ml/ hr Change Flush to 200 ml q4hr hypernatremia resolved Kcal 2,160 Protein (gm) 97 Fluid (mL) 872 Goal #1 TF tolerance Goal #2 Meet at least 80% of energy and protein needs Anticipated Discharge Needs: Unable to determine at this time Follow-Up By: 12/14/18 Additional Comments F/U for TF restart/tolerance
--- NOTE | 2018-12-09 09:01 | Progress Note ---
Assessment and Plan 1. Acute kidney injury: Vasomotor CONNIE superimposed on CKD in the setting of hypotension. Renal US negative for hydro. Renal function is better, around his baseline. Monitor renal function. Renal prognosis is guarded. Avoid nephrotoxic agents. Meds dosage based on GFR. 2. FEN: Hyperkalemia, improved. Hypernatremia, continue free water flushes. Monitor lytes. 3. Acute hypoxic respiratory failure: Intubated on vent. 4. Acute Metabolic Encephalopathy. 5. Elevated troponin. 6. Macrocytic anemia: POA. Low Folate, continue Folic acid. 7. Type 2 DM. Subjective Date of service: 12/09/18 Principal diagnosis: low plt Interval history: Patient was seen and examined at the bedside. Objective - Vital Signs Vital signs: Vital Signs - 12hr 12/08/18 12/08/18 12/08/18 21:23 21:30 22:00 Temperature Pulse Rate 114 H 119 H Pulse Rate [ 117 H Anterior Bilateral Throughout] Pulse Rate [ Apical] Respiratory 17 Rate Respiratory 24 Rate [Anterior Bilateral Throughout] Blood Pressure 117/73 117/73 O2 Sat by Pulse 99 99 Oximetry 12/08/18 12/08/18 12/08/18 23:00 23:16 23:44 Temperature 97.6 F Pulse Rate 118 H 124 H Pulse Rate [ Anterior Bilateral Throughout] Pulse Rate [ Apical] Respiratory 21 20 Rate Respiratory Rate [Anterior Bilateral Throughout] Blood Pressure 106/69 104/72 O2 Sat by Pulse 99 99 Oximetry 12/09/18 12/09/18 12/09/18 00:00 00:10 01:00 Temperature Pulse Rate 119 H 120 H 115 H Pulse Rate [ Anterior Bilateral Throughout] Pulse Rate [ 116 H Apical] Respiratory 24 16 Rate Respiratory Rate [Anterior Bilateral Throughout] Blood Pressure 110/60 110/60 110/65 O2 Sat by Pulse 100 99 98 Oximetry 12/09/18 12/09/18 12/09/18 02:00 03:00 04:00 Temperature 98.7 F Pulse Rate 117 H 115 H 118 H Pulse Rate [ Anterior Bilateral Throughout] Pulse Rate [ 118 H Apical] Respiratory 15 22 17 Rate Respiratory Rate [Anterior Bilateral Throughout] Blood Pressure 110/65 100/58 99/64 O2 Sat by Pulse 99 100 99 Oximetry 12/09/18 12/09/18 12/09/18 05:00 05:18 06:00 Temperature Pulse Rate 117 H 93 H 117 H Pulse Rate [ Anterior Bilateral Throughout] Pulse Rate [ Apical] Respiratory 20 20 Rate Respiratory Rate [Anterior Bilateral Throughout] Blood Pressure 107/69 107/69 107/69 O2 Sat by Pulse 99 100 97 Oximetry 12/09/18 12/09/18 12/09/18 07:56 08:02 08:42 Temperature Pulse Rate 117 H 118 H Pulse Rate [ 114 H Anterior Bilateral Throughout] Pulse Rate [ Apical] Respiratory Rate Respiratory 26 H Rate [Anterior Bilateral Throughout] Blood Pressure 113/68 111/71 O2 Sat by Pulse 100 100 Oximetry - General Appearance General appearance: well-developed, appears stated age, intubated, other (on vent, no distress) EENT: ATNC, PERRL Neck: supple Respiratory: Present: Clear to Ascultation Cardiology: tachycardia, S1S2, no murmurs Gastrointestinal: normoactive bowel sounds, no tenderness, no distended Integumentary: other (LE dressing noted) Neurologic: other (opens eyes) Musculoskeletal: other (no edema) - Lab 12/07/18 02:40 12/09/18 04:38 Most recent lab results ABG pH 7.431 pH Units (7.350-7.450) 12/06/18 04:44 ABG pCO2 32.1 mm Hg 12/06/18 04:44 ABG pO2 87.2 mm Hg (80.0-90.0) 12/06/18 04:44 ABG HCO3 20.9 mmol/L (20.0-26.0) 12/06/18 04:44 ABG O2 Saturation 97.2 % (95.0-99.0) 12/06/18 04:44 Calcium 8.2 mg/dL (8.4-10.2) L 12/09/18 04:38 Phosphorus 2.80 mg/dL (2.5-4.5) 12/04/18 08:01 Magnesium 2.10 mg/dL (1.7-2.3) 12/04/18 08:01 173.8 mg/dL (0.1-20.0) H 11/30/18 14:20 18 mmol/L 11/30/18 14:20 Medications & Allergies - Medications Allergies/Adverse Reactions: Allergies No Known Allergies Allergy (Unverified 03/29/16 00:43) Home Medications: Home Medications Medication Instructions Recorded Confirmed Last Taken Type Aspirin [Aspirin BABY CHEW TAB] 81 mg PO QDAY #30 tab.chew 11/15/17 11/29/18 Unknown Rx Amlodipine Besylate 10 mg PO QDAY 05/21/18 11/29/18 Unknown History Carvedilol 6.25 mg PO BID 05/21/18 11/29/18 Unknown History Isentress 400 mg PO Q12HR 05/21/18 11/29/18 Unknown History Rosuvastatin Calcium 10 mg PO DAILY 05/21/18 11/29/18 Unknown History Memantine [Namenda] 5 mg PO QDAY #30 tablet 11/01/18 11/29/18 Unknown Rx Albuterol Sulfate [Albuterol 0.63% 0.63 mg IH TID PRN 30 Days ml 11/07/18 11/29/18 Unknown Rx NEBS] AtorvaSTATin [Lipitor] 20 mg PO QDAY #30 tablet 11/07/18 11/29/18 Unknown Rx Famotidine [Pepcid] 10 mg PO BID #60 tablet 11/07/18 11/29/18 Unknown Rx Ipratropium/Albuterol Sulfate 1 ampul IH Q6HR 30 Days ampul.neb 11/07/18 11/29/18 Unknown Rx [DUONEB *Not for PRN Use*] Tamsulosin [Flomax] 0.4 mg PO QHS #30 capsule 11/07/18 11/29/18 Unknown Rx Zidovudine 300 mg PO DAILY 11/09/18 11/29/18 Unknown History Insulin Regular, Human [HumuLIN R] 0 unit SQ AC #1 vial 11/12/18 11/29/18 Unknown Rx Active Medications: Generic Name Dose Route Start Last Admin Trade Name Freq PRN Reason Stop Dose Admin Abacavir Sulfate 600 mg 11/30/18 16:00 12/08/18 11:06 Ziagen PO 600 mg DAILY KEN Administration Albuterol 2.5 mg 11/30/18 00:17 Proventil IH Q4HRT PRN Shortness Of Breath Albuterol/Ipratropium 1 ampul 11/30/18 08:00 12/09/18 07:52 Duoneb *Not For Prn Use* IH 1 ampul QIDRT KEN Administration Lipase/Protease/Amylase 1 each 12/03/18 10:42 Pancredavis Manning 10,500 Unit FEEDTUBE PRN PRN For Clogged Feeding Tube Docusate Sodium 100 mg 12/08/18 13:00 12/08/18 21:17 Colace PO 100 mg BID KEN Administration Famotidine 10 mg 12/04/18 11:00 12/08/18 21:18 Pepcid PO 10 mg BID KEN Administration Fentanyl 50 mcg 12/04/18 17:28 12/05/18 03:01 Sublimaze IV 50 mcg Q2H PRN Administration INCREASED AGITATION Folic Acid 1 mg 12/04/18 12:00 12/08/18 11:06 Folvite PO 1 mg QDAY KEN Administration Cefepime HCl 2 gm in 100 mls @ 200 mls/hr 11/30/18 22:00 12/08/18 21:17 Maxipime/Ns 2 Gm/100 Ml IV 200 mls/hr Q24H KEN Administration Protocol Insulin Glargine 12 units 12/09/18 12:00 Lantus SUB-Q Q12H KEN Insulin Human Lispro 0 unit 11/30/18 07:00 12/09/18 06:20 Humalog SUB-Q 6 unit Q6HR KEN Administration Protocol Lamivudine 150 mg 12/06/18 10:00 12/08/18 11:20 Epivir PO 150 mg DAILY KEN Administration Metoclopramide HCl 5 mg 11/30/18 00:22 Reglan IV Q6H PRN Nausea And Vomiting Ondansetron HCl 4 mg 11/30/18 00:06 Zofran IV Q8H PRN Nausea And Vomiting Raltegravir 400 mg 11/30/18 16:00 12/08/18 21:18 Isentress PO 400 mg BID KEN Administration Simple Syrup 15 ml 12/03/18 10:42 Simple Syrup FEEDTUBE PRN PRN Hypoglycemia Simple Syrup 30 ml 12/03/18 10:42 Simple Syrup FEEDTUBE PRN PRN Hypoglycemia Sodium Bicarbonate 325 mg 12/03/18 10:42 Sodium Bicarbonate FEEDTUBE PRN PRN For Clogged Feeding Tube Sodium Chloride 10 ml 11/30/18 10:00 12/08/18 21:17 Sodium Chloride Flush Syringe 10 Ml IV 10 ml BID KEN Administration Sodium Chloride 10 ml 11/30/18 00:06 Sodium Chloride Flush Syringe 10 Ml IV PRN PRN LINE FLUSH Zidovudine 300 mg 11/30/18 16:00 12/08/18 21:19 Retrovir PO 300 mg BID KEN Administration
[2018-12-09] MEDS: EPIVIR PO SCH (09:52)
[2018-12-09] MEDS: COLACE PO SCH ×2 (09:52→21:24)
[2018-12-09] MEDS: FOLVITE PO SCH (09:52)
[2018-12-09] MEDS: SODIUM CHLORIDE FLUSH SYRINGE 10 ML IV SCH ×2 (09:52→21:23)
[2018-12-09] MEDS: ISENTRESS PO SCH ×2 (09:53→21:25)
[2018-12-09] MEDS: ZIAGEN PO SCH (09:53)
[2018-12-09] MEDS: PEPCID PO SCH ×2 (09:53→21:22)
[2018-12-09] MEDS: RETROVIR PO SCH ×2 (09:54→21:24)
--- NOTE | 2018-12-09 11:35 | Progress Note ---
Subjective Date of service: 12/09/18 Principal diagnosis: low plt Interval history: I checked over the records and lab's and the platelet count is stable around 50,000 did not the heme and nephro notes plan follow up will get furthr testing and follow Objective - Vital Sign Vital Signs - 12hr 12/08/18 12/09/18 12/09/18 23:44 00:00 00:10 Temperature 97.6 F Pulse Rate 119 H 120 H Pulse Rate [ Anterior Bilateral Throughout] Pulse Rate [ 116 H Apical] Respiratory 24 Rate Respiratory Rate [Anterior Bilateral Throughout] Blood Pressure 110/60 110/60 O2 Sat by Pulse 100 99 Oximetry 12/09/18 12/09/18 12/09/18 01:00 02:00 03:00 Temperature Pulse Rate 115 H 117 H 115 H Pulse Rate [ Anterior Bilateral Throughout] Pulse Rate [ Apical] Respiratory 16 15 22 Rate Respiratory Rate [Anterior Bilateral Throughout] Blood Pressure 110/65 110/65 100/58 O2 Sat by Pulse 98 99 100 Oximetry 12/09/18 12/09/18 12/09/18 04:00 05:00 05:18 Temperature 98.7 F Pulse Rate 118 H 117 H 93 H Pulse Rate [ Anterior Bilateral Throughout] Pulse Rate [ 118 H Apical] Respiratory 17 20 Rate Respiratory Rate [Anterior Bilateral Throughout] Blood Pressure 99/64 107/69 107/69 O2 Sat by Pulse 99 99 100 Oximetry 12/09/18 12/09/18 12/09/18 06:00 07:00 07:56 Temperature Pulse Rate 117 H 119 H 117 H Pulse Rate [ Anterior Bilateral Throughout] Pulse Rate [ Apical] Respiratory 20 15 Rate Respiratory Rate [Anterior Bilateral Throughout] Blood Pressure 107/69 102/66 113/68 O2 Sat by Pulse 97 98 100 Oximetry 12/09/18 12/09/18 12/09/18 08:00 08:02 08:42 Temperature 96.4 F L Pulse Rate 104 H 118 H Pulse Rate [ 114 H Anterior Bilateral Throughout] Pulse Rate [ 109 H Apical] Respiratory 20 Rate Respiratory 26 H Rate [Anterior Bilateral Throughout] Blood Pressure 113/68 111/71 O2 Sat by Pulse 100 100 Oximetry 12/09/18 12/09/18 12/09/18 09:00 09:36 10:00 Temperature Pulse Rate 111 H 117 H 113 H Pulse Rate [ Anterior Bilateral Throughout] Pulse Rate [ Apical] Respiratory 12 21 Rate Respiratory Rate [Anterior Bilateral Throughout] Blood Pressure 111/71 111/72 111/71 O2 Sat by Pulse 100 100 100 Oximetry 12/09/18 11:00 Temperature Pulse Rate 124 H Pulse Rate [ Anterior Bilateral Throughout] Pulse Rate [ Apical] Respiratory 26 H Rate Respiratory Rate [Anterior Bilateral Throughout] Blood Pressure 107/71 O2 Sat by Pulse 96 Oximetry - Laboratory Findings CBC and BMP: 12/07/18 02:40 12/09/18 04:38 Abnormal Lab Findings: Abnormal Labs 11/29/18 11/29/18 11/29/18 13:07 13:39 13:39 WBC 3.2 L RBC 2.76 L Hgb 10.4 L Hct 32.1 L MCV 116 H MCH 38 H RDW 17.5 H Plt Count 48 L Lymph % (Auto) 5.4 L Lymph # 0.2 L Seg Neutrophils % 89.5 H Seg Neuts % (Manual) Lymphocytes % (Manual) Lymphocytes # (Manual) PT INR POC ABG pH POC ABG pO2 ABG pO2 ABG HCO3 ABG O2 Saturation ABG Base Excess ABG Hemoglobin VBG pH Oxyhemoglobin Sodium 153 H Potassium Chloride 113.3 H Carbon Dioxide 21 L BUN 55 H Creatinine 2.4 H Glucose 260 H POC Glucose 289 H Calcium Iron TIBC AST 68 H Alkaline Phosphatase 239 H Total Creatine Kinase 243 H Troponin T 0.054 H Total Protein 5.8 L Albumin 3.0 L LDL Cholesterol Direct 30 L HDL Cholesterol 63 H Vitamin B12 Folate Urine Creatinine Salicylates Acetaminophen 11/29/18 11/29/18 11/29/18 13:39 13:39 13:39 WBC RBC Hgb Hct MCV MCH RDW Plt Count Lymph % (Auto) Lymph # Seg Neutrophils % Seg Neuts % (Manual) Lymphocytes % (Manual) Lymphocytes # (Manual) PT INR POC ABG pH POC ABG pO2 ABG pO2 ABG HCO3 ABG O2 Saturation ABG Base Excess ABG Hemoglobin VBG pH 7.186 L* Oxyhemoglobin Sodium Potassium Chloride Carbon Dioxide BUN Creatinine Glucose POC Glucose Calcium Iron TIBC AST Alkaline Phosphatase Total Creatine Kinase Troponin T Total Protein Albumin LDL Cholesterol Direct HDL Cholesterol Vitamin B12 Folate Urine Creatinine Salicylates < 0.3 L Acetaminophen < 5.0 L 11/29/18 11/29/18 11/30/18 14:24 21:17 05:50 WBC RBC Hgb Hct MCV MCH RDW Plt Count Lymph % (Auto) Lymph # Seg Neutrophils % Seg Neuts % (Manual) Lymphocytes % (Manual) Lymphocytes # (Manual) PT INR POC ABG pH 7.319 L POC ABG pO2 126 H ABG pO2 203.3 H ABG HCO3 18.5 L ABG O2 Saturation 99.3 H ABG Base Excess -6.2 L ABG Hemoglobin 10.9 L VBG pH Oxyhemoglobin Sodium Potassium Chloride Carbon Dioxide BUN Creatinine Glucose POC Glucose 242 H Calcium Iron TIBC AST Alkaline Phosphatase Total Creatine Kinase Troponin T Total Protein Albumin LDL Cholesterol Direct HDL Cholesterol Vitamin B12 Folate Urine Creatinine Salicylates Acetaminophen 11/30/18 11/30/18 11/30/18 08:52 10:31 10:58 WBC RBC 3.05 L Hgb 11.5 L Hct 35.3 L MCV 116 H MCH 38 H RDW 17.2 H Plt Count 43 L Lymph % (Auto) Lymph # Seg Neutrophils % Seg Neuts % (Manual) Lymphocytes % (Manual) Lymphocytes # (Manual) PT INR POC ABG pH POC ABG pO2 ABG pO2 ABG HCO3 ABG O2 Saturation ABG Base Excess ABG Hemoglobin VBG pH Oxyhemoglobin Sodium 153 H Potassium Chloride 117.2 H Carbon Dioxide 18 L BUN 60 H Creatinine 2.8 H Glucose 216 H POC Glucose 234 H Calcium 8.2 L Iron TIBC AST Alkaline Phosphatase Total Creatine Kinase Troponin T Total Protein Albumin LDL Cholesterol Direct HDL Cholesterol Vitamin B12 Folate Urine Creatinine Salicylates Acetaminophen 11/30/18 11/30/18 11/30/18 12:40 14:20 17:35 WBC RBC Hgb Hct MCV MCH RDW Plt Count Lymph % (Auto) Lymph # Seg Neutrophils % Seg Neuts % (Manual) Lymphocytes % (Manual) Lymphocytes # (Manual) PT INR POC ABG pH POC ABG pO2 ABG pO2 ABG HCO3 ABG O2 Saturation ABG Base Excess ABG Hemoglobin VBG pH Oxyhemoglobin Sodium Potassium Chloride Carbon Dioxide BUN Creatinine Glucose POC Glucose 235 H 182 H Calcium Iron TIBC AST Alkaline Phosphatase Total Creatine Kinase Troponin T Total Protein Albumin LDL Cholesterol Direct HDL Cholesterol Vitamin B12 Folate Urine Creatinine 173.8 H Salicylates Acetaminophen 11/30/18 12/01/18 12/01/18 23:53 04:08 04:08 WBC RBC 3.11 L Hgb 11.7 L Hct 35.3 L MCV 113 H MCH 38 H RDW 16.9 H Plt Count 43 L Lymph % (Auto) Lymph # Seg Neutrophils % Seg Neuts % (Manual) Lymphocytes % (Manual) Lymphocytes # (Manual) PT INR POC ABG pH POC ABG pO2 ABG pO2 ABG HCO3 ABG O2 Saturation ABG Base Excess ABG Hemoglobin VBG pH Oxyhemoglobin Sodium 150 H Potassium Chloride 114.6 H Carbon Dioxide 16 L BUN 67 H Creatinine 2.9 H Glucose 193 H POC Glucose 149 H Calcium 8.2 L Iron TIBC AST Alkaline Phosphatase Total Creatine Kinase Troponin T Total Protein Albumin LDL Cholesterol Direct HDL Cholesterol Vitamin B12 Folate Urine Creatinine Salicylates Acetaminophen 12/01/18 12/01/18 12/01/18 04:55 05:11 13:33 WBC RBC Hgb Hct MCV MCH RDW Plt Count Lymph % (Auto) Lymph # Seg Neutrophils % Seg Neuts % (Manual) Lymphocytes % (Manual) Lymphocytes # (Manual) PT INR POC ABG pH POC ABG pO2 ABG pO2 91.9 H ABG HCO3 17.7 L ABG O2 Saturation ABG Base Excess -6.1 L ABG Hemoglobin 11.5 L VBG pH Oxyhemoglobin Sodium Potassium Chloride Carbon Dioxide BUN Creatinine Glucose POC Glucose 236 H 255 H Calcium Iron TIBC AST Alkaline Phosphatase Total Creatine Kinase Troponin T Total Protein Albumin LDL Cholesterol Direct HDL Cholesterol Vitamin B12 Folate Urine Creatinine Salicylates Acetaminophen 12/01/18 12/02/18 12/02/18 18:20 00:17 03:40 WBC RBC Hgb Hct MCV MCH RDW Plt Count Lymph % (Auto) Lymph # Seg Neutrophils % Seg Neuts % (Manual) Lymphocytes % (Manual) Lymphocytes # (Manual) PT INR POC ABG pH POC ABG pO2 ABG pO2 78.0 L ABG HCO3 16.4 L ABG O2 Saturation ABG Base Excess -6.2 L ABG Hemoglobin 11.4 L VBG pH Oxyhemoglobin 94.5 L Sodium Potassium Chloride Carbon Dioxide BUN Creatinine Glucose POC Glucose 177 H 192 H Calcium Iron TIBC AST Alkaline Phosphatase Total Creatine Kinase Troponin T Total Protein Albumin LDL Cholesterol Direct HDL Cholesterol Vitamin B12 Folate Urine Creatinine Salicylates Acetaminophen 12/02/18 12/02/18 12/02/18 05:11 05:26 07:50 WBC 4.1 L RBC 3.01 L Hgb 11.4 L Hct 34.1 L MCV 113 H MCH 38 H RDW 17.3 H Plt Count 40 L Lymph % (Auto) Lymph # Seg Neutrophils % Seg Neuts % (Manual) Lymphocytes % (Manual) Lymphocytes # (Manual) PT INR POC ABG pH POC ABG pO2 ABG pO2 ABG HCO3 ABG O2 Saturation ABG Base Excess ABG Hemoglobin VBG pH Oxyhemoglobin Sodium Potassium 5.6 H D Chloride 113.0 H Carbon Dioxide 16 L BUN 73 H Creatinine 2.8 H Glucose 202 H POC Glucose 179 H Calcium Iron TIBC AST Alkaline Phosphatase Total Creatine Kinase Troponin T Total Protein Albumin LDL Cholesterol Direct HDL Cholesterol Vitamin B12 Folate Urine Creatinine Salicylates Acetaminophen 12/02/18 12/02/18 12/02/18 11:57 18:40 18:43 WBC RBC Hgb Hct MCV MCH RDW Plt Count Lymph % (Auto) Lymph # Seg Neutrophils % Seg Neuts % (Manual) Lymphocytes % (Manual) Lymphocytes # (Manual) PT INR POC ABG pH POC ABG pO2 ABG pO2 ABG HCO3 ABG O2 Saturation ABG Base Excess ABG Hemoglobin VBG pH Oxyhemoglobin Sodium Potassium Chloride Carbon Dioxide BUN Creatinine Glucose POC Glucose 140 H 286 H 261 H Calcium Iron TIBC AST Alkaline Phosphatase Total Creatine Kinase Troponin T Total Protein Albumin LDL Cholesterol Direct HDL Cholesterol Vitamin B12 Folate Urine Creatinine Salicylates Acetaminophen 12/02/18 12/03/18 12/03/18 23:55 04:06 04:06 WBC 4.4 L RBC 2.96 L Hgb 11.3 L Hct 33.1 L MCV 112 H MCH 38 H RDW 16.7 H Plt Count 38 L Lymph % (Auto) Lymph # Seg Neutrophils % Seg Neuts % (Manual) Lymphocytes % (Manual) Lymphocytes # (Manual) PT INR POC ABG pH POC ABG pO2 ABG pO2 ABG HCO3 ABG O2 Saturation ABG Base Excess ABG Hemoglobin VBG pH Oxyhemoglobin Sodium 146 H Potassium Chloride 112.5 H Carbon Dioxide 18 L BUN 71 H Creatinine 2.5 H Glucose 258 H POC Glucose 303 H Calcium 8.3 L Iron TIBC AST Alkaline Phosphatase Total Creatine Kinase Troponin T Total Protein Albumin LDL Cholesterol Direct HDL Cholesterol Vitamin B12 Folate Urine Creatinine Salicylates Acetaminophen 12/03/18 12/03/18 12/03/18 05:17 11:25 17:46 WBC RBC Hgb Hct MCV MCH RDW Plt Count Lymph % (Auto) Lymph # Seg Neutrophils % Seg Neuts % (Manual) Lymphocytes % (Manual) Lymphocytes # (Manual) PT INR POC ABG pH POC ABG pO2 ABG pO2 ABG HCO3 ABG O2 Saturation ABG Base Excess ABG Hemoglobin VBG pH Oxyhemoglobin Sodium Potassium Chloride Carbon Dioxide BUN Creatinine Glucose POC Glucose 328 H 288 H 202 H Calcium Iron TIBC AST Alkaline Phosphatase Total Creatine Kinase Troponin T Total Protein Albumin LDL Cholesterol Direct HDL Cholesterol Vitamin B12 Folate Urine Creatinine Salicylates Acetaminophen 12/04/18 12/04/18 12/04/18 01:15 05:47 08:01 WBC RBC 3.11 L Hgb 11.7 L Hct MCV 115 H MCH 38 H RDW 17.6 H Plt Count 35 L Lymph % (Auto) 6.9 L Lymph # 0.3 L Seg Neutrophils % 87.7 H Seg Neuts % (Manual) Lymphocytes % (Manual) Lymphocytes # (Manual) PT INR POC ABG pH POC ABG pO2 ABG pO2 ABG HCO3 ABG O2 Saturation ABG Base Excess ABG Hemoglobin VBG pH Oxyhemoglobin Sodium Potassium Chloride Carbon Dioxide BUN Creatinine Glucose POC Glucose 282 H 265 H Calcium Iron TIBC AST Alkaline Phosphatase Total Creatine Kinase Troponin T Total Protein Albumin LDL Cholesterol Direct HDL Cholesterol Vitamin B12 Folate Urine Creatinine Salicylates Acetaminophen 12/04/18 12/04/18 12/04/18 08:01 08:01 08:01 WBC RBC Hgb Hct MCV MCH RDW Plt Count Lymph % (Auto) Lymph # Seg Neutrophils % Seg Neuts % (Manual) Lymphocytes % (Manual) Lymphocytes # (Manual) PT 17.0 H INR 1.42 H POC ABG pH POC ABG pO2 ABG pO2 ABG HCO3 ABG O2 Saturation ABG Base Excess ABG Hemoglobin VBG pH Oxyhemoglobin Sodium Potassium Chloride 114.6 H Carbon Dioxide 20 L BUN 62 H Creatinine 2.0 H Glucose 266 H POC Glucose Calcium 8.3 L Iron 20 L TIBC 168 L AST Alkaline Phosphatase 292 H Total Creatine Kinase Troponin T Total Protein 5.2 L Albumin 2.1 L LDL Cholesterol Direct HDL Cholesterol Vitamin B12 Folate 7.24 L Urine Creatinine Salicylates Acetaminophen 12/04/18 12/04/18 12/04/18 11:59 17:59 22:59 WBC RBC Hgb Hct MCV MCH RDW Plt Count Lymph % (Auto) Lymph # Seg Neutrophils % Seg Neuts % (Manual) Lymphocytes % (Manual) Lymphocytes # (Manual) PT INR POC ABG pH POC ABG pO2 ABG pO2 ABG HCO3 ABG O2 Saturation ABG Base Excess ABG Hemoglobin VBG pH Oxyhemoglobin Sodium Potassium Chloride Carbon Dioxide BUN Creatinine Glucose POC Glucose 267 H 226 H 341 H Calcium Iron TIBC AST Alkaline Phosphatase Total Creatine Kinase Troponin T Total Protein Albumin LDL Cholesterol Direct HDL Cholesterol Vitamin B12 Folate Urine Creatinine Salicylates Acetaminophen 12/05/18 12/05/18 12/05/18 03:42 03:42 03:42 WBC RBC 2.89 L Hgb 10.8 L Hct 32.2 L MCV 111 H MCH 37 H RDW 16.8 H Plt Count 47 L Lymph % (Auto) 5.5 L Lymph # 0.3 L Seg Neutrophils % 89.9 H Seg Neuts % (Manual) Lymphocytes % (Manual) Lymphocytes # (Manual) PT INR POC ABG pH POC ABG pO2 ABG pO2 ABG HCO3 ABG O2 Saturation ABG Base Excess ABG Hemoglobin VBG pH Oxyhemoglobin Sodium 146 H Potassium Chloride 113.3 H Carbon Dioxide 19 L BUN 55 H Creatinine 1.8 H Glucose 268 H POC Glucose Calcium 8.3 L Iron TIBC AST Alkaline Phosphatase Total Creatine Kinase Troponin T Total Protein Albumin LDL Cholesterol Direct HDL Cholesterol Vitamin B12 1798 H Folate Urine Creatinine Salicylates Acetaminophen 12/05/18 12/05/18 12/05/18 04:14 18:38 23:59 WBC RBC Hgb Hct MCV MCH RDW Plt Count Lymph % (Auto) Lymph # Seg Neutrophils % Seg Neuts % (Manual) Lymphocytes % (Manual) Lymphocytes # (Manual) PT INR POC ABG pH POC ABG pO2 ABG pO2 75.1 L ABG HCO3 ABG O2 Saturation ABG Base Excess -4.0 L ABG Hemoglobin 8.2 L VBG pH Oxyhemoglobin 94.0 L Sodium Potassium Chloride Carbon Dioxide BUN Creatinine Glucose POC Glucose 150 H 215 H Calcium Iron TIBC AST Alkaline Phosphatase Total Creatine Kinase Troponin T Total Protein Albumin LDL Cholesterol Direct HDL Cholesterol Vitamin B12 Folate Urine Creatinine Salicylates Acetaminophen 12/06/18 12/06/18 12/06/18 04:02 04:02 04:44 WBC RBC 2.88 L Hgb 10.6 L Hct 32.8 L MCV 114 H MCH 37 H RDW 17.3 H Plt Count 59 L Lymph % (Auto) 7.1 L Lymph # 0.4 L Seg Neutrophils % 87.9 H Seg Neuts % (Manual) Lymphocytes % (Manual) Lymphocytes # (Manual) PT INR POC ABG pH POC ABG pO2 ABG pO2 ABG HCO3 ABG O2 Saturation ABG Base Excess -2.7 L ABG Hemoglobin 10.5 L VBG pH Oxyhemoglobin 94.7 L Sodium 146 H Potassium Chloride 111.9 H Carbon Dioxide 21 L BUN 52 H Creatinine 1.7 H Glucose 254 H POC Glucose Calcium 8.3 L Iron TIBC AST Alkaline Phosphatase Total Creatine Kinase Troponin T Total Protein Albumin LDL Cholesterol Direct HDL Cholesterol Vitamin B12 Folate Urine Creatinine Salicylates Acetaminophen 12/06/18 12/06/18 12/06/18 05:59 12:08 17:52 WBC RBC Hgb Hct MCV MCH RDW Plt Count Lymph % (Auto) Lymph # Seg Neutrophils % Seg Neuts % (Manual) Lymphocytes % (Manual) Lymphocytes # (Manual) PT INR POC ABG pH POC ABG pO2 ABG pO2 ABG HCO3 ABG O2 Saturation ABG Base Excess ABG Hemoglobin VBG pH Oxyhemoglobin Sodium Potassium Chloride Carbon Dioxide BUN Creatinine Glucose POC Glucose 270 H 119 H 158 H Calcium Iron TIBC AST Alkaline Phosphatase Total Creatine Kinase Troponin T Total Protein Albumin LDL Cholesterol Direct HDL Cholesterol Vitamin B12 Folate Urine Creatinine Salicylates Acetaminophen 12/07/18 12/07/18 12/07/18 00:00 02:40 02:40 WBC RBC 2.78 L Hgb 10.2 L Hct 31.5 L MCV 113 H MCH 37 H RDW 16.7 H Plt Count 57 L Lymph % (Auto) Lymph # Seg Neutrophils % Seg Neuts % (Manual) 99.0 H Lymphocytes % (Manual) 1.0 L Lymphocytes # (Manual) 0.1 L PT INR POC ABG pH POC ABG pO2 ABG pO2 ABG HCO3 ABG O2 Saturation ABG Base Excess ABG Hemoglobin VBG pH Oxyhemoglobin Sodium 147 H Potassium 3.4 L Chloride 111.6 H Carbon Dioxide 19 L BUN 50 H Creatinine 1.6 H Glucose 243 H POC Glucose 203 H Calcium Iron TIBC AST Alkaline Phosphatase Total Creatine Kinase Troponin T Total Protein Albumin LDL Cholesterol Direct HDL Cholesterol Vitamin B12 Folate Urine Creatinine Salicylates Acetaminophen 12/07/18 12/07/18 12/07/18 05:27 11:49 17:30 WBC RBC Hgb Hct MCV MCH RDW Plt Count Lymph % (Auto) Lymph # Seg Neutrophils % Seg Neuts % (Manual) Lymphocytes % (Manual) Lymphocytes # (Manual) PT INR POC ABG pH POC ABG pO2 ABG pO2 ABG HCO3 ABG O2 Saturation ABG Base Excess ABG Hemoglobin VBG pH Oxyhemoglobin Sodium Potassium Chloride Carbon Dioxide BUN Creatinine Glucose POC Glucose 299 H 249 H 205 H Calcium Iron TIBC AST Alkaline Phosphatase Total Creatine Kinase Troponin T Total Protein Albumin LDL Cholesterol Direct HDL Cholesterol Vitamin B12 Folate Urine Creatinine Salicylates Acetaminophen 12/08/18 12/08/18 12/08/18 00:09 03:43 05:09 WBC RBC Hgb Hct MCV MCH RDW Plt Count Lymph % (Auto) Lymph # Seg Neutrophils % Seg Neuts % (Manual) Lymphocytes % (Manual) Lymphocytes # (Manual) PT INR POC ABG pH POC ABG pO2 ABG pO2 ABG HCO3 ABG O2 Saturation ABG Base Excess ABG Hemoglobin VBG pH Oxyhemoglobin Sodium Potassium Chloride 110.9 H Carbon Dioxide 21 L BUN 53 H Creatinine 1.6 H Glucose 311 H POC Glucose 312 H 363 H Calcium Iron TIBC AST Alkaline Phosphatase Total Creatine Kinase Troponin T Total Protein Albumin LDL Cholesterol Direct HDL Cholesterol Vitamin B12 Folate Urine Creatinine Salicylates Acetaminophen 12/08/18 12/08/18 12/08/18 07:35 12:18 17:51 WBC RBC Hgb Hct MCV MCH RDW Plt Count Lymph % (Auto) Lymph # Seg Neutrophils % Seg Neuts % (Manual) Lymphocytes % (Manual) Lymphocytes # (Manual) PT INR POC ABG pH POC ABG pO2 ABG pO2 ABG HCO3 ABG O2 Saturation ABG Base Excess ABG Hemoglobin VBG pH Oxyhemoglobin Sodium Potassium Chloride Carbon Dioxide BUN Creatinine Glucose POC Glucose 347 H 332 H 198 H Calcium Iron TIBC AST Alkaline Phosphatase Total Creatine Kinase Troponin T Total Protein Albumin LDL Cholesterol Direct HDL Cholesterol Vitamin B12 Folate Urine Creatinine Salicylates Acetaminophen 12/08/18 12/09/18 12/09/18 23:42 04:38 05:33 WBC RBC Hgb Hct MCV MCH RDW Plt Count Lymph % (Auto) Lymph # Seg Neutrophils % Seg Neuts % (Manual) Lymphocytes % (Manual) Lymphocytes # (Manual) PT INR POC ABG pH POC ABG pO2 ABG pO2 ABG HCO3 ABG O2 Saturation ABG Base Excess ABG Hemoglobin VBG pH Oxyhemoglobin Sodium Potassium Chloride 111.5 H Carbon Dioxide BUN 55 H Creatinine 1.7 H Glucose 246 H POC Glucose 226 H 271 H Calcium 8.2 L Iron TIBC AST Alkaline Phosphatase Total Creatine Kinase Troponin T Total Protein Albumin LDL Cholesterol Direct HDL Cholesterol Vitamin B12 Folate Urine Creatinine Salicylates Acetaminophen
[2018-12-09] MEDS ORDERED: LANTUS SUB-Q SCH (12:00)
[2018-12-09] MEDS: LANTUS SUB-Q SCH ×3 (12:17→23:54)
--- NOTE | 2018-12-09 12:24 | Progress Note ---
Assessment and Plan 73 y/o male who presents with altered mental state, hypothermia, renal failure and hypernatremia and trop leak 1. Resp-Most likely patient is going to need a trach given recurrent episodes of apnea. He will likely be weaned quickly from the vent but would need to be uncapped at night vs PSV when sleeping. Will discuss with CM to see if there is family to obtain consent. 2. Neuro-Unsure of baseline mental state. Is improved compared to my last evaluation. LP negative. Please see number 1. Neuro feels all side effects from stroke. 3. ID-Cefepime over on yesterday. 4. Renal-Appears to be chronic renal failure when reviewing labs from before. Improved and stable 5. Electrolytes- Will defer to nephrology as they are following. 6. Overall prognosis is guarded to poor. Patient is likely a poor candidate for HD given other comorbid disease. Family has not been present at bedside to discuss further options but really need to have a family meeting and discuss goals of care and usp prognosis as well as need for trach CCT 31 minutes. Subjective Date of service: 12/09/18 Principal diagnosis: low plt Interval history: No acute events. Per RT, patient continues to fail PSV secondary to apnea. No family present at bedside. Objective Vital Signs - 12hr 12/09/18 12/09/18 12/09/18 01:00 02:00 03:00 Temperature Pulse Rate 115 H 117 H 115 H Pulse Rate [ Anterior Bilateral Throughout] Pulse Rate [ Apical] Pulse Rate [ From Monitor] Respiratory 16 15 22 Rate Respiratory Rate [Anterior Bilateral Throughout] Blood Pressure 110/65 110/65 100/58 O2 Sat by Pulse 98 99 100 Oximetry 12/09/18 12/09/18 12/09/18 04:00 05:00 05:18 Temperature 98.7 F Pulse Rate 118 H 117 H 93 H Pulse Rate [ Anterior Bilateral Throughout] Pulse Rate [ 118 H Apical] Pulse Rate [ From Monitor] Respiratory 17 20 Rate Respiratory Rate [Anterior Bilateral Throughout] Blood Pressure 99/64 107/69 107/69 O2 Sat by Pulse 99 99 100 Oximetry 12/09/18 12/09/18 12/09/18 06:00 07:00 07:56 Temperature Pulse Rate 117 H 119 H 117 H Pulse Rate [ Anterior Bilateral Throughout] Pulse Rate [ Apical] Pulse Rate [ From Monitor] Respiratory 20 15 Rate Respiratory Rate [Anterior Bilateral Throughout] Blood Pressure 107/69 102/66 113/68 O2 Sat by Pulse 97 98 100 Oximetry 12/09/18 12/09/18 12/09/18 08:00 08:02 08:42 Temperature 96.4 F L Pulse Rate 104 H 118 H Pulse Rate [ 114 H Anterior Bilateral Throughout] Pulse Rate [ 109 H Apical] Pulse Rate [ From Monitor] Respiratory 20 Rate Respiratory 26 H Rate [Anterior Bilateral Throughout] Blood Pressure 113/68 111/71 O2 Sat by Pulse 100 100 Oximetry 12/09/18 12/09/18 12/09/18 09:00 09:36 10:00 Temperature Pulse Rate 111 H 117 H 113 H Pulse Rate [ Anterior Bilateral Throughout] Pulse Rate [ Apical] Pulse Rate [ From Monitor] Respiratory 12 21 Rate Respiratory Rate [Anterior Bilateral Throughout] Blood Pressure 111/71 111/72 111/71 O2 Sat by Pulse 100 100 100 Oximetry 12/09/18 12/09/18 12/09/18 11:00 11:45 12:00 Temperature 96.9 F L Pulse Rate 124 H 123 H 122 H Pulse Rate [ Anterior Bilateral Throughout] Pulse Rate [ Apical] Pulse Rate [ 123 H From Monitor] Respiratory 26 H 23 Rate Respiratory Rate [Anterior Bilateral Throughout] Blood Pressure 107/71 120/84 120/84 O2 Sat by Pulse 96 100 98 Oximetry Constitutional: other (critically ill on vent, awake, eyes open) Eyes: non-icteric ENT: oropharynx moist, other (intubated) Neck: supple Effort: normal Ascultation: Bilateral: clear, diminished breath sounds, rhonchi Percussion: Bilateral: not dull Cardiovascular: other (tachy, RR; no mrg) Gastrointestinal: normoactive bowel sounds, soft, non-tender, non-distended Extremities: no cyanosis, no edema, pink and warm Neurologic: other (eyes open, not following commands for me) Psychiatric: other (unable to assess) CBC and BMP: 12/07/18 02:40 12/09/18 04:38 ABG, PT/INR, D-dimer: ABG POC ABG pH 7.437 (7.35-7.45) 12/04/18 03:48 ABG pH 7.431 pH Units (7.350-7.450) 12/06/18 04:44 ABG pCO2 32.1 mm Hg 12/06/18 04:44 POC ABG pO2 82 (80-105) 12/04/18 03:48 ABG pO2 87.2 mm Hg (80.0-90.0) 12/06/18 04:44 POC ABG HCO3 19.3 (22-26 mml/L) 12/04/18 03:48 POC ABG Total CO2 20 (23-27mmol/L) 12/04/18 03:48 POC ABG O2 Sat 97 12/04/18 03:48 ABG O2 Saturation 97.2 % (95.0-99.0) 12/06/18 04:44 PT/INR, D-dimer PT 17.0 Sec. (12.2-14.9) H 12/04/18 08:01 INR 1.42 (0.87-1.13) H 12/04/18 08:01 Abnormal lab findings: Abnormal Labs 11/29/18 11/29/18 11/29/18 13:07 13:39 13:39 WBC 3.2 L RBC 2.76 L Hgb 10.4 L Hct 32.1 L MCV 116 H MCH 38 H RDW 17.5 H Plt Count 48 L Lymph % (Auto) 5.4 L Lymph # 0.2 L Seg Neutrophils % 89.5 H Seg Neuts % (Manual) Lymphocytes % (Manual) Lymphocytes # (Manual) PT INR POC ABG pH POC ABG pO2 ABG pO2 ABG HCO3 ABG O2 Saturation ABG Base Excess ABG Hemoglobin VBG pH Oxyhemoglobin Sodium 153 H Potassium Chloride 113.3 H Carbon Dioxide 21 L BUN 55 H Creatinine 2.4 H Glucose 260 H POC Glucose 289 H Calcium Iron TIBC AST 68 H Alkaline Phosphatase 239 H Total Creatine Kinase 243 H Troponin T 0.054 H Total Protein 5.8 L Albumin 3.0 L LDL Cholesterol Direct 30 L HDL Cholesterol 63 H Vitamin B12 Folate Urine Creatinine Salicylates Acetaminophen 11/29/18 11/29/18 11/29/18 13:39 13:39 13:39 WBC RBC Hgb Hct MCV MCH RDW Plt Count Lymph % (Auto) Lymph # Seg Neutrophils % Seg Neuts % (Manual) Lymphocytes % (Manual) Lymphocytes # (Manual) PT INR POC ABG pH POC ABG pO2 ABG pO2 ABG HCO3 ABG O2 Saturation ABG Base Excess ABG Hemoglobin VBG pH 7.186 L* Oxyhemoglobin Sodium Potassium Chloride Carbon Dioxide BUN Creatinine Glucose POC Glucose Calcium Iron TIBC AST Alkaline Phosphatase Total Creatine Kinase Troponin T Total Protein Albumin LDL Cholesterol Direct HDL Cholesterol Vitamin B12 Folate Urine Creatinine Salicylates < 0.3 L Acetaminophen < 5.0 L 11/29/18 11/29/18 11/30/18 14:24 21:17 05:50 WBC RBC Hgb Hct MCV MCH RDW Plt Count Lymph % (Auto) Lymph # Seg Neutrophils % Seg Neuts % (Manual) Lymphocytes % (Manual) Lymphocytes # (Manual) PT INR POC ABG pH 7.319 L POC ABG pO2 126 H ABG pO2 203.3 H ABG HCO3 18.5 L ABG O2 Saturation 99.3 H ABG Base Excess -6.2 L ABG Hemoglobin 10.9 L VBG pH Oxyhemoglobin Sodium Potassium Chloride Carbon Dioxide BUN Creatinine Glucose POC Glucose 242 H Calcium Iron TIBC AST Alkaline Phosphatase Total Creatine Kinase Troponin T Total Protein Albumin LDL Cholesterol Direct HDL Cholesterol Vitamin B12 Folate Urine Creatinine Salicylates Acetaminophen 11/30/18 11/30/18 11/30/18 08:52 10:31 10:58 WBC RBC 3.05 L Hgb 11.5 L Hct 35.3 L MCV 116 H MCH 38 H RDW 17.2 H Plt Count 43 L Lymph % (Auto) Lymph # Seg Neutrophils % Seg Neuts % (Manual) Lymphocytes % (Manual) Lymphocytes # (Manual) PT INR POC ABG pH POC ABG pO2 ABG pO2 ABG HCO3 ABG O2 Saturation ABG Base Excess ABG Hemoglobin VBG pH Oxyhemoglobin Sodium 153 H Potassium Chloride 117.2 H Carbon Dioxide 18 L BUN 60 H Creatinine 2.8 H Glucose 216 H POC Glucose 234 H Calcium 8.2 L Iron TIBC AST Alkaline Phosphatase Total Creatine Kinase Troponin T Total Protein Albumin LDL Cholesterol Direct HDL Cholesterol Vitamin B12 Folate Urine Creatinine Salicylates Acetaminophen 11/30/18 11/30/18 11/30/18 12:40 14:20 17:35 WBC RBC Hgb Hct MCV MCH RDW Plt Count Lymph % (Auto) Lymph # Seg Neutrophils % Seg Neuts % (Manual) Lymphocytes % (Manual) Lymphocytes # (Manual) PT INR POC ABG pH POC ABG pO2 ABG pO2 ABG HCO3 ABG O2 Saturation ABG Base Excess ABG Hemoglobin VBG pH Oxyhemoglobin Sodium Potassium Chloride Carbon Dioxide BUN Creatinine Glucose POC Glucose 235 H 182 H Calcium Iron TIBC AST Alkaline Phosphatase Total Creatine Kinase Troponin T Total Protein Albumin LDL Cholesterol Direct HDL Cholesterol Vitamin B12 Folate Urine Creatinine 173.8 H Salicylates Acetaminophen 11/30/18 12/01/18 12/01/18 23:53 04:08 04:08 WBC RBC 3.11 L Hgb 11.7 L Hct 35.3 L MCV 113 H MCH 38 H RDW 16.9 H Plt Count 43 L Lymph % (Auto) Lymph # Seg Neutrophils % Seg Neuts % (Manual) Lymphocytes % (Manual) Lymphocytes # (Manual) PT INR POC ABG pH POC ABG pO2 ABG pO2 ABG HCO3 ABG O2 Saturation ABG Base Excess ABG Hemoglobin VBG pH Oxyhemoglobin Sodium 150 H Potassium Chloride 114.6 H Carbon Dioxide 16 L BUN 67 H Creatinine 2.9 H Glucose 193 H POC Glucose 149 H Calcium 8.2 L Iron TIBC AST Alkaline Phosphatase Total Creatine Kinase Troponin T Total Protein Albumin LDL Cholesterol Direct HDL Cholesterol Vitamin B12 Folate Urine Creatinine Salicylates Acetaminophen 12/01/18 12/01/18 12/01/18 04:55 05:11 13:33 WBC RBC Hgb Hct MCV MCH RDW Plt Count Lymph % (Auto) Lymph # Seg Neutrophils % Seg Neuts % (Manual) Lymphocytes % (Manual) Lymphocytes # (Manual) PT INR POC ABG pH POC ABG pO2 ABG pO2 91.9 H ABG HCO3 17.7 L ABG O2 Saturation ABG Base Excess -6.1 L ABG Hemoglobin 11.5 L VBG pH Oxyhemoglobin Sodium Potassium Chloride Carbon Dioxide BUN Creatinine Glucose POC Glucose 236 H 255 H Calcium Iron TIBC AST Alkaline Phosphatase Total Creatine Kinase Troponin T Total Protein Albumin LDL Cholesterol Direct HDL Cholesterol Vitamin B12 Folate Urine Creatinine Salicylates Acetaminophen 12/01/18 12/02/18 12/02/18 18:20 00:17 03:40 WBC RBC Hgb Hct MCV MCH RDW Plt Count Lymph % (Auto) Lymph # Seg Neutrophils % Seg Neuts % (Manual) Lymphocytes % (Manual) Lymphocytes # (Manual) PT INR POC ABG pH POC ABG pO2 ABG pO2 78.0 L ABG HCO3 16.4 L ABG O2 Saturation ABG Base Excess -6.2 L ABG Hemoglobin 11.4 L VBG pH Oxyhemoglobin 94.5 L Sodium Potassium Chloride Carbon Dioxide BUN Creatinine Glucose POC Glucose 177 H 192 H Calcium Iron TIBC AST Alkaline Phosphatase Total Creatine Kinase Troponin T Total Protein Albumin LDL Cholesterol Direct HDL Cholesterol Vitamin B12 Folate Urine Creatinine Salicylates Acetaminophen 12/02/18 12/02/18 12/02/18 05:11 05:26 07:50 WBC 4.1 L RBC 3.01 L Hgb 11.4 L Hct 34.1 L MCV 113 H MCH 38 H RDW 17.3 H Plt Count 40 L Lymph % (Auto) Lymph # Seg Neutrophils % Seg Neuts % (Manual) Lymphocytes % (Manual) Lymphocytes # (Manual) PT INR POC ABG pH POC ABG pO2 ABG pO2 ABG HCO3 ABG O2 Saturation ABG Base Excess ABG Hemoglobin VBG pH Oxyhemoglobin Sodium Potassium 5.6 H D Chloride 113.0 H Carbon Dioxide 16 L BUN 73 H Creatinine 2.8 H Glucose 202 H POC Glucose 179 H Calcium Iron TIBC AST Alkaline Phosphatase Total Creatine Kinase Troponin T Total Protein Albumin LDL Cholesterol Direct HDL Cholesterol Vitamin B12 Folate Urine Creatinine Salicylates Acetaminophen 12/02/18 12/02/18 12/02/18 11:57 18:40 18:43 WBC RBC Hgb Hct MCV MCH RDW Plt Count Lymph % (Auto) Lymph # Seg Neutrophils % Seg Neuts % (Manual) Lymphocytes % (Manual) Lymphocytes # (Manual) PT INR POC ABG pH POC ABG pO2 ABG pO2 ABG HCO3 ABG O2 Saturation ABG Base Excess ABG Hemoglobin VBG pH Oxyhemoglobin Sodium Potassium Chloride Carbon Dioxide BUN Creatinine Glucose POC Glucose 140 H 286 H 261 H Calcium Iron TIBC AST Alkaline Phosphatase Total Creatine Kinase Troponin T Total Protein Albumin LDL Cholesterol Direct HDL Cholesterol Vitamin B12 Folate Urine Creatinine Salicylates Acetaminophen 12/02/18 12/03/18 12/03/18 23:55 04:06 04:06 WBC 4.4 L RBC 2.96 L Hgb 11.3 L Hct 33.1 L MCV 112 H MCH 38 H RDW 16.7 H Plt Count 38 L Lymph % (Auto) Lymph # Seg Neutrophils % Seg Neuts % (Manual) Lymphocytes % (Manual) Lymphocytes # (Manual) PT INR POC ABG pH POC ABG pO2 ABG pO2 ABG HCO3 ABG O2 Saturation ABG Base Excess ABG Hemoglobin VBG pH Oxyhemoglobin Sodium 146 H Potassium Chloride 112.5 H Carbon Dioxide 18 L BUN 71 H Creatinine 2.5 H Glucose 258 H POC Glucose 303 H Calcium 8.3 L Iron TIBC AST Alkaline Phosphatase Total Creatine Kinase Troponin T Total Protein Albumin LDL Cholesterol Direct HDL Cholesterol Vitamin B12 Folate Urine Creatinine Salicylates Acetaminophen 12/03/18 12/03/18 12/03/18 05:17 11:25 17:46 WBC RBC Hgb Hct MCV MCH RDW Plt Count Lymph % (Auto) Lymph # Seg Neutrophils % Seg Neuts % (Manual) Lymphocytes % (Manual) Lymphocytes # (Manual) PT INR POC ABG pH POC ABG pO2 ABG pO2 ABG HCO3 ABG O2 Saturation ABG Base Excess ABG Hemoglobin VBG pH Oxyhemoglobin Sodium Potassium Chloride Carbon Dioxide BUN Creatinine Glucose POC Glucose 328 H 288 H 202 H Calcium Iron TIBC AST Alkaline Phosphatase Total Creatine Kinase Troponin T Total Protein Albumin LDL Cholesterol Direct HDL Cholesterol Vitamin B12 Folate Urine Creatinine Salicylates Acetaminophen 12/04/18 12/04/18 12/04/18 01:15 05:47 08:01 WBC RBC 3.11 L Hgb 11.7 L Hct MCV 115 H MCH 38 H RDW 17.6 H Plt Count 35 L Lymph % (Auto) 6.9 L Lymph # 0.3 L Seg Neutrophils % 87.7 H Seg Neuts % (Manual) Lymphocytes % (Manual) Lymphocytes # (Manual) PT INR POC ABG pH POC ABG pO2 ABG pO2 ABG HCO3 ABG O2 Saturation ABG Base Excess ABG Hemoglobin VBG pH Oxyhemoglobin Sodium Potassium Chloride Carbon Dioxide BUN Creatinine Glucose POC Glucose 282 H 265 H Calcium Iron TIBC AST Alkaline Phosphatase Total Creatine Kinase Troponin T Total Protein Albumin LDL Cholesterol Direct HDL Cholesterol Vitamin B12 Folate Urine Creatinine Salicylates Acetaminophen 12/04/18 12/04/18 12/04/18 08:01 08:01 08:01 WBC RBC Hgb Hct MCV MCH RDW Plt Count Lymph % (Auto) Lymph # Seg Neutrophils % Seg Neuts % (Manual) Lymphocytes % (Manual) Lymphocytes # (Manual) PT 17.0 H INR 1.42 H POC ABG pH POC ABG pO2 ABG pO2 ABG HCO3 ABG O2 Saturation ABG Base Excess ABG Hemoglobin VBG pH Oxyhemoglobin Sodium Potassium Chloride 114.6 H Carbon Dioxide 20 L BUN 62 H Creatinine 2.0 H Glucose 266 H POC Glucose Calcium 8.3 L Iron 20 L TIBC 168 L AST Alkaline Phosphatase 292 H Total Creatine Kinase Troponin T Total Protein 5.2 L Albumin 2.1 L LDL Cholesterol Direct HDL Cholesterol Vitamin B12 Folate 7.24 L Urine Creatinine Salicylates Acetaminophen 12/04/18 12/04/18 12/04/18 11:59 17:59 22:59 WBC RBC Hgb Hct MCV MCH RDW Plt Count Lymph % (Auto) Lymph # Seg Neutrophils % Seg Neuts % (Manual) Lymphocytes % (Manual) Lymphocytes # (Manual) PT INR POC ABG pH POC ABG pO2 ABG pO2 ABG HCO3 ABG O2 Saturation ABG Base Excess ABG Hemoglobin VBG pH Oxyhemoglobin Sodium Potassium Chloride Carbon Dioxide BUN Creatinine Glucose POC Glucose 267 H 226 H 341 H Calcium Iron TIBC AST Alkaline Phosphatase Total Creatine Kinase Troponin T Total Protein Albumin LDL Cholesterol Direct HDL Cholesterol Vitamin B12 Folate Urine Creatinine Salicylates Acetaminophen 12/05/18 12/05/18 12/05/18 03:42 03:42 03:42 WBC RBC 2.89 L Hgb 10.8 L Hct 32.2 L MCV 111 H MCH 37 H RDW 16.8 H Plt Count 47 L Lymph % (Auto) 5.5 L Lymph # 0.3 L Seg Neutrophils % 89.9 H Seg Neuts % (Manual) Lymphocytes % (Manual) Lymphocytes # (Manual) PT INR POC ABG pH POC ABG pO2 ABG pO2 ABG HCO3 ABG O2 Saturation ABG Base Excess ABG Hemoglobin VBG pH Oxyhemoglobin Sodium 146 H Potassium Chloride 113.3 H Carbon Dioxide 19 L BUN 55 H Creatinine 1.8 H Glucose 268 H POC Glucose Calcium 8.3 L Iron TIBC AST Alkaline Phosphatase Total Creatine Kinase Troponin T Total Protein Albumin LDL Cholesterol Direct HDL Cholesterol Vitamin B12 1798 H Folate Urine Creatinine Salicylates Acetaminophen 12/05/18 12/05/18 12/05/18 04:14 18:38 23:59 WBC RBC Hgb Hct MCV MCH RDW Plt Count Lymph % (Auto) Lymph # Seg Neutrophils % Seg Neuts % (Manual) Lymphocytes % (Manual) Lymphocytes # (Manual) PT INR POC ABG pH POC ABG pO2 ABG pO2 75.1 L ABG HCO3 ABG O2 Saturation ABG Base Excess -4.0 L ABG Hemoglobin 8.2 L VBG pH Oxyhemoglobin 94.0 L Sodium Potassium Chloride Carbon Dioxide BUN Creatinine Glucose POC Glucose 150 H 215 H Calcium Iron TIBC AST Alkaline Phosphatase Total Creatine Kinase Troponin T Total Protein Albumin LDL Cholesterol Direct HDL Cholesterol Vitamin B12 Folate Urine Creatinine Salicylates Acetaminophen 12/06/18 12/06/18 12/06/18 04:02 04:02 04:44 WBC RBC 2.88 L Hgb 10.6 L Hct 32.8 L MCV 114 H MCH 37 H RDW 17.3 H Plt Count 59 L Lymph % (Auto) 7.1 L Lymph # 0.4 L Seg Neutrophils % 87.9 H Seg Neuts % (Manual) Lymphocytes % (Manual) Lymphocytes # (Manual) PT INR POC ABG pH POC ABG pO2 ABG pO2 ABG HCO3 ABG O2 Saturation ABG Base Excess -2.7 L ABG Hemoglobin 10.5 L VBG pH Oxyhemoglobin 94.7 L Sodium 146 H Potassium Chloride 111.9 H Carbon Dioxide 21 L BUN 52 H Creatinine 1.7 H Glucose 254 H POC Glucose Calcium 8.3 L Iron TIBC AST Alkaline Phosphatase Total Creatine Kinase Troponin T Total Protein Albumin LDL Cholesterol Direct HDL Cholesterol Vitamin B12 Folate Urine Creatinine Salicylates Acetaminophen 12/06/18 12/06/18 12/06/18 05:59 12:08 17:52 WBC RBC Hgb Hct MCV MCH RDW Plt Count Lymph % (Auto) Lymph # Seg Neutrophils % Seg Neuts % (Manual) Lymphocytes % (Manual) Lymphocytes # (Manual) PT INR POC ABG pH POC ABG pO2 ABG pO2 ABG HCO3 ABG O2 Saturation ABG Base Excess ABG Hemoglobin VBG pH Oxyhemoglobin Sodium Potassium Chloride Carbon Dioxide BUN Creatinine Glucose POC Glucose 270 H 119 H 158 H Calcium Iron TIBC AST Alkaline Phosphatase Total Creatine Kinase Troponin T Total Protein Albumin LDL Cholesterol Direct HDL Cholesterol Vitamin B12 Folate Urine Creatinine Salicylates Acetaminophen 12/07/18 12/07/18 12/07/18 00:00 02:40 02:40 WBC RBC 2.78 L Hgb 10.2 L Hct 31.5 L MCV 113 H MCH 37 H RDW 16.7 H Plt Count 57 L Lymph % (Auto) Lymph # Seg Neutrophils % Seg Neuts % (Manual) 99.0 H Lymphocytes % (Manual) 1.0 L Lymphocytes # (Manual) 0.1 L PT INR POC ABG pH POC ABG pO2 ABG pO2 ABG HCO3 ABG O2 Saturation ABG Base Excess ABG Hemoglobin VBG pH Oxyhemoglobin Sodium 147 H Potassium 3.4 L Chloride 111.6 H Carbon Dioxide 19 L BUN 50 H Creatinine 1.6 H Glucose 243 H POC Glucose 203 H Calcium Iron TIBC AST Alkaline Phosphatase Total Creatine Kinase Troponin T Total Protein Albumin LDL Cholesterol Direct HDL Cholesterol Vitamin B12 Folate Urine Creatinine Salicylates Acetaminophen 12/07/18 12/07/18 12/07/18 05:27 11:49 17:30 WBC RBC Hgb Hct MCV MCH RDW Plt Count Lymph % (Auto) Lymph # Seg Neutrophils % Seg Neuts % (Manual) Lymphocytes % (Manual) Lymphocytes # (Manual) PT INR POC ABG pH POC ABG pO2 ABG pO2 ABG HCO3 ABG O2 Saturation ABG Base Excess ABG Hemoglobin VBG pH Oxyhemoglobin Sodium Potassium Chloride Carbon Dioxide BUN Creatinine Glucose POC Glucose 299 H 249 H 205 H Calcium Iron TIBC AST Alkaline Phosphatase Total Creatine Kinase Troponin T Total Protein Albumin LDL Cholesterol Direct HDL Cholesterol Vitamin B12 Folate Urine Creatinine Salicylates Acetaminophen 12/08/18 12/08/18 12/08/18 00:09 03:43 05:09 WBC RBC Hgb Hct MCV MCH RDW Plt Count Lymph % (Auto) Lymph # Seg Neutrophils % Seg Neuts % (Manual) Lymphocytes % (Manual) Lymphocytes # (Manual) PT INR POC ABG pH POC ABG pO2 ABG pO2 ABG HCO3 ABG O2 Saturation ABG Base Excess ABG Hemoglobin VBG pH Oxyhemoglobin Sodium Potassium Chloride 110.9 H Carbon Dioxide 21 L BUN 53 H Creatinine 1.6 H Glucose 311 H POC Glucose 312 H 363 H Calcium Iron TIBC AST Alkaline Phosphatase Total Creatine Kinase Troponin T Total Protein Albumin LDL Cholesterol Direct HDL Cholesterol Vitamin B12 Folate Urine Creatinine Salicylates Acetaminophen 12/08/18 12/08/18 12/08/18 07:35 12:18 17:51 WBC RBC Hgb Hct MCV MCH RDW Plt Count Lymph % (Auto) Lymph # Seg Neutrophils % Seg Neuts % (Manual) Lymphocytes % (Manual) Lymphocytes # (Manual) PT INR POC ABG pH POC ABG pO2 ABG pO2 ABG HCO3 ABG O2 Saturation ABG Base Excess ABG Hemoglobin VBG pH Oxyhemoglobin Sodium Potassium Chloride Carbon Dioxide BUN Creatinine Glucose POC Glucose 347 H 332 H 198 H Calcium Iron TIBC AST Alkaline Phosphatase Total Creatine Kinase Troponin T Total Protein Albumin LDL Cholesterol Direct HDL Cholesterol Vitamin B12 Folate Urine Creatinine Salicylates Acetaminophen 12/08/18 12/09/18 12/09/18 23:42 04:38 05:33 WBC RBC Hgb Hct MCV MCH RDW Plt Count Lymph % (Auto) Lymph # Seg Neutrophils % Seg Neuts % (Manual) Lymphocytes % (Manual) Lymphocytes # (Manual) PT INR POC ABG pH POC ABG pO2 ABG pO2 ABG HCO3 ABG O2 Saturation ABG Base Excess ABG Hemoglobin VBG pH Oxyhemoglobin Sodium Potassium Chloride 111.5 H Carbon Dioxide BUN 55 H Creatinine 1.7 H Glucose 246 H POC Glucose 226 H 271 H Calcium 8.2 L Iron TIBC AST Alkaline Phosphatase Total Creatine Kinase Troponin T Total Protein Albumin LDL Cholesterol Direct HDL Cholesterol Vitamin B12 Folate Urine Creatinine Salicylates Acetaminophen 12/09/18 12:08 WBC RBC Hgb Hct MCV MCH RDW Plt Count Lymph % (Auto) Lymph # Seg Neutrophils % Seg Neuts % (Manual) Lymphocytes % (Manual) Lymphocytes # (Manual) PT INR POC ABG pH POC ABG pO2 ABG pO2 ABG HCO3 ABG O2 Saturation ABG Base Excess ABG Hemoglobin VBG pH Oxyhemoglobin Sodium Potassium Chloride Carbon Dioxide BUN Creatinine Glucose POC Glucose 255 H Calcium Iron TIBC AST Alkaline Phosphatase Total Creatine Kinase Troponin T Total Protein Albumin LDL Cholesterol Direct HDL Cholesterol Vitamin B12 Folate Urine Creatinine Salicylates Acetaminophen
--- NOTE | 2018-12-09 14:01 | Progress Note ---
Subjective Date of service: 12/09/18 Principal diagnosis: low plt Interval history: Intubated, HR sinus tachy HR 110s Altered mental status Resp failure, failed CPAP trial with apneic episodes Thrombocytopenia Hx of CVA Non-specific troponin Cardiomyopathy, EF 15-20% Moderate to severe MR and TR Renal failure HIV Supportive cardiac management. Cont to monitor rhythm Objective Vital Signs Temp Pulse Pulse Pulse Pulse Resp Resp 12/09/18 12:00 96.9 F L 122 H 123 H 12/09/18 11:45 123 H 12/09/18 11:00 124 H 26 H 12/09/18 10:00 113 H 12/09/18 09:36 117 H 12/09/18 09:00 111 H 12 12/09/18 08:42 118 H 12/09/18 08:02 114 H 26 H 12/09/18 08:00 96.4 F L 104 H 109 H 12/09/18 07:56 117 H 12/09/18 07:00 119 H 12/09/18 06:00 117 H 12/09/18 05:18 93 H 12/09/18 05:00 117 H 12/09/18 04:00 98.7 F 118 H 118 H 12/09/18 03:00 115 H 12/09/18 02:00 117 H 15 12/09/18 01:00 115 H 16 12/09/18 00:10 120 H 12/09/18 00:00 119 H 116 H 12/08/18 23:44 97.6 F 12/08/18 23:16 124 H 12/08/18 23:00 118 H 12/08/18 22:00 119 H 12/08/18 21:30 117 H 12/08/18 21:23 114 H 12/08/18 21:00 120 H 12/08/18 20:00 97.6 F 128 H 120 H 12/08/18 19:00 116 H 12/08/18 18:00 115 H 22 12/08/18 17:09 119 H 20 12/08/18 17:00 101 H 25 H 12/08/18 16:00 115 H 115 H 23 12/08/18 15:52 119 H 12/08/18 15:00 123 H 27 H BP Pulse Ox 12/09/18 12:00 120/84 98 12/09/18 11:45 120/84 100 12/09/18 11:00 107/71 96 12/09/18 10:00 111/71 100 12/09/18 09:36 111/72 100 12/09/18 09:00 111/71 100 12/09/18 08:42 111/71 100 12/09/18 08:02 12/09/18 08:00 113/68 100 12/09/18 07:56 113/68 100 12/09/18 07:00 102/66 98 12/09/18 06:00 107/69 97 12/09/18 05:18 107/69 100 12/09/18 05:00 107/69 99 12/09/18 04:00 99/64 99 12/09/18 03:00 100/58 100 12/09/18 02:00 110/65 99 12/09/18 01:00 110/65 98 12/09/18 00:10 110/60 99 12/09/18 00:00 110/60 100 12/08/18 23:44 12/08/18 23:16 104/72 99 12/08/18 23:00 106/69 99 12/08/18 22:00 117/73 99 12/08/18 21:30 12/08/18 21:23 117/73 99 12/08/18 21:00 107/72 99 12/08/18 20:00 108/72 99 12/08/18 19:00 108/72 99 12/08/18 18:00 118/61 96 12/08/18 17:09 12/08/18 17:00 111/62 99 12/08/18 16:00 111/62 100 12/08/18 15:52 120/61 100 12/08/18 15:00 138/90 100 - Physical Examination General: Other (on the vent) Neck: Positive: trachea midline Cardiac: Positive: Reg Rate and Rhythm, S1/S2 Lungs: Positive: clear to auscultation Neuro: Positive: Other (unresponsive, on the vent) Abdomen: Positive: Soft Skin: Positive: Clear Extremities: Absent: edema - Labs and Meds Comprehensive Metabolic Panel 12/09/18 Range/Units 04:38 Sodium 143 (137-145) mmol/L Potassium 3.6 (3.6-5.0) mmol/L Chloride 111.5 H (98-107) mmol/L Carbon Dioxide 23 (22-30) mmol/L BUN 55 H (9-20) mg/dL Creatinine 1.7 H (0.8-1.5) mg/dL Glucose 246 H (75-100) mg/dL Calcium 8.2 L (8.4-10.2) mg/dL - Imaging and Cardiology EKG: report reviewed
[2018-12-09] MEDS: MAXIPIME/NS 2 GM/100 ML 2 GM/100 ML BAG IV SCH (21:23)
[2018-12-09] MEDS: SUBLIMAZE IV PRN (23:53)
[2018-12-10 05:43] LABS: Calcium 8.1 mg/dL (8.4-10.2)
[2018-12-10 05:44] LABS: ABG Base Excess -1.1 mmol/L (-2.0-3.0); ABG HCO3 22.6 mmol/L (20.0-26.0); ABG Methemoglobin 0.4 % (0.0-1.5); ABG Oxygen Saturation 96.9 % (95.0-99.0); ABG PH 7.44 pH Units (7.350-7.450); ABG PO2 80.8 mm Hg (80.0-90.0)
[2018-12-10] MEDS: HumaLOG SUB-Q SCH ×3 (06:39→17:37)
--- NOTE | 2018-12-10 07:42 | Hem/Onc Progress Note ---
Assessment and Plan 1. Thrombocytopenia. The patient has multiple issues, which include HIV/immunosuppression medications. 2. At this time, there is no active bleeding. 3. h/o Unresponsive. 4. Leukopenia. 5. Macrocytosis. This may be medication related. 6. History of diabetes. 7. History of hypertension. 8. History of cerebrovascular accident. 9. History of dementia. 10. Chronic obstructive pulmonary disease. 11. Renal impairment. 12. Metabolic encephalopathy. 13. h/o Intubation. Respiratory support. 14. I will follow the patient during inpatient stay. We will do deficiency investigations and follow the patient. B12 is normal. ID following for HIV s/p plt transfusion ID following for LP on folic acid - as folate was low awake - Patient Problems (1) Thrombocytopenia Current Visit: Yes Status: Acute Subjective Date of service: 12/10/18 Principal diagnosis: low plt Interval history: awake - looks at you Objective - Constitutional Vitals: Last Vital Signs Temp 98.6 F 12/10/18 05:00 Pulse 123 H 12/10/18 06:00 Resp 24 12/10/18 06:00 BP 113/72 12/10/18 06:00 Pulse Ox 99 12/10/18 06:00 - Labs Lab Results: Laboratory Results - last 24 hr 12/06/18 12/09/18 12/09/18 Unknown 12:08 18:13 ABG pH ABG pCO2 ABG pO2 ABG HCO3 ABG O2 Saturation ABG O2 Content ABG Base Excess ABG Hemoglobin ABG Carboxyhemoglobin ABG Methemoglobin Oxyhemoglobin FiO2 Sodium Potassium Chloride Carbon Dioxide Anion Gap BUN Creatinine Estimated GFR BUN/Creatinine Ratio Glucose POC Glucose 255 H 214 H Calcium Miscellaneous Test Flexitest 1 12/09/18 12/09/18 12/10/18 20:03 23:32 04:40 ABG pH 7.440 ABG pCO2 34.0 ABG pO2 80.8 ABG HCO3 22.6 ABG O2 Saturation 96.9 ABG O2 Content 14.2 ABG Base Excess -1.1 ABG Hemoglobin 10.6 L ABG Carboxyhemoglobin 1.7 ABG Methemoglobin 0.4 Oxyhemoglobin 94.8 L FiO2 25 Sodium Potassium Chloride Carbon Dioxide Anion Gap BUN Creatinine Estimated GFR BUN/Creatinine Ratio Glucose POC Glucose 195 H 140 H Calcium Miscellaneous Test 12/10/18 12/10/18 05:08 05:27 ABG pH ABG pCO2 ABG pO2 ABG HCO3 ABG O2 Saturation ABG O2 Content ABG Base Excess ABG Hemoglobin ABG Carboxyhemoglobin ABG Methemoglobin Oxyhemoglobin FiO2 Sodium 145 Potassium 3.5 L Chloride 111.3 H Carbon Dioxide 23 Anion Gap 14 BUN 53 H Creatinine 1.6 H Estimated GFR 51 BUN/Creatinine Ratio 33 Glucose 125 H POC Glucose 133 H Calcium 8.1 L Miscellaneous Test Medications & Allergies - Medications Allergies/Adverse Reactions: Allergies No Known Allergies Allergy (Unverified 03/29/16 00:43) Home Medications: Home Medications Medication Instructions Recorded Confirmed Last Taken Type Aspirin [Aspirin BABY CHEW TAB] 81 mg PO QDAY #30 tab.chew 11/15/17 11/29/18 Unknown Rx Amlodipine Besylate 10 mg PO QDAY 05/21/18 11/29/18 Unknown History Carvedilol 6.25 mg PO BID 05/21/18 11/29/18 Unknown History Isentress 400 mg PO Q12HR 05/21/18 11/29/18 Unknown History Rosuvastatin Calcium 10 mg PO DAILY 05/21/18 11/29/18 Unknown History Memantine [Namenda] 5 mg PO QDAY #30 tablet 11/01/18 11/29/18 Unknown Rx Albuterol Sulfate [Albuterol 0.63% 0.63 mg IH TID PRN 30 Days ml 11/07/18 11/29/18 Unknown Rx NEBS] AtorvaSTATin [Lipitor] 20 mg PO QDAY #30 tablet 11/07/18 11/29/18 Unknown Rx Famotidine [Pepcid] 10 mg PO BID #60 tablet 11/07/18 11/29/18 Unknown Rx Ipratropium/Albuterol Sulfate 1 ampul IH Q6HR 30 Days ampul.neb 11/07/18 11/29/18 Unknown Rx [DUONEB *Not for PRN Use*] Tamsulosin [Flomax] 0.4 mg PO QHS #30 capsule 11/07/18 11/29/18 Unknown Rx Zidovudine 300 mg PO DAILY 11/09/18 11/29/18 Unknown History Insulin Regular, Human [HumuLIN R] 0 unit SQ AC #1 vial 11/12/18 11/29/18 Unknown Rx Active Medications: Generic Name Dose Route Start Last Admin Trade Name Freq PRN Reason Stop Dose Admin Abacavir Sulfate 600 mg 11/30/18 16:00 12/09/18 09:53 Ziagen PO 600 mg DAILY KEN Administration Albuterol 2.5 mg 11/30/18 00:17 Proventil IH Q4HRT PRN Shortness Of Breath Albuterol/Ipratropium 1 ampul 11/30/18 08:00 12/09/18 21:37 Duoneb *Not For Prn Use* IH 1 ampul QIDRT KEN Administration Lipase/Protease/Amylase 1 each 12/03/18 10:42 Pancreaze 10,500 Unit FEEDTUBE PRN PRN For Clogged Feeding Tube Docusate Sodium 100 mg 12/08/18 13:00 12/09/18 21:24 Colace PO 100 mg BID KEN Administration Famotidine 10 mg 12/04/18 11:00 12/09/18 21:22 Pepcid PO 10 mg BID KEN Administration Fentanyl 50 mcg 12/04/18 17:28 12/09/18 23:53 Sublimaze IV 50 mcg Q2H PRN Administration INCREASED AGITATION Folic Acid 1 mg 12/04/18 12:00 12/09/18 09:52 Folvite PO 1 mg QDAY KEN Administration Cefepime HCl 2 gm in 100 mls @ 200 mls/hr 11/30/18 22:00 12/09/18 21:23 Maxipime/Ns 2 Gm/100 Ml IV 200 mls/hr Q24H KEN Administration Protocol Insulin Glargine 12 units 12/09/18 12:00 12/09/18 23:54 Lantus SUB-Q 12 units Q12H KEN Administration Insulin Human Lispro 0 unit 11/30/18 07:00 12/10/18 06:39 Humalog SUB-Q Not Given Q6HR [facility] Protocol Lamivudine 150 mg 12/06/18 10:00 12/09/18 09:52 Epivir PO 150 mg DAILY KEN Administration Metoclopramide HCl 5 mg 11/30/18 00:22 Reglan IV Q6H PRN Nausea And Vomiting Ondansetron HCl 4 mg 11/30/18 00:06 Zofran IV Q8H PRN Nausea And Vomiting Raltegravir 400 mg 11/30/18 16:00 12/09/18 21:25 Isentress PO 400 mg BID KEN Administration Simple Syrup 15 ml 12/03/18 10:42 Simple Syrup FEEDTUBE PRN PRN Hypoglycemia Simple Syrup 30 ml 12/03/18 10:42 Simple Syrup FEEDTUBE PRN PRN Hypoglycemia Sodium Bicarbonate 325 mg 12/03/18 10:42 Sodium Bicarbonate FEEDTUBE PRN PRN For Clogged Feeding Tube Sodium Chloride 10 ml 11/30/18 10:00 12/09/18 21:23 Sodium Chloride Flush Syringe 10 Ml IV 10 ml BID KEN Administration Sodium Chloride 10 ml 11/30/18 00:06 Sodium Chloride Flush Syringe 10 Ml IV PRN PRN LINE FLUSH Zidovudine 300 mg 11/30/18 16:00 12/09/18 21:24 Retrovir PO 300 mg BID KEN Administration
[2018-12-10] MEDS: DUONEB *Not for PRN Use IH SCH ×4 (07:58→20:24)
[2018-12-10] MEDS ORDERED: POTASSIUM CHLORIDE FEEDTUBE ONE (10:00)
[2018-12-10] MEDS: ZIAGEN PO SCH (10:47)
[2018-12-10] MEDS: PEPCID PO SCH (10:55)
[2018-12-10] MEDS: FOLVITE PO SCH (10:55)
[2018-12-10] MEDS: COLACE PO SCH ×2 (10:55→21:47)
[2018-12-10] MEDS: ISENTRESS PO SCH ×2 (10:57→21:47)
[2018-12-10] MEDS: EPIVIR PO SCH (10:57)
[2018-12-10] MEDS: RETROVIR PO SCH ×2 (10:59→21:50)
--- NOTE | 2018-12-10 11:51 | Progress Note ---
Assessment and Plan 73 y/o male who presents with altered mental state, hypothermia, renal failure and hypernatremia and trop leak 1. Resp-Most likely patient is going to need a trach given recurrent episodes of apnea. He will likely be weaned quickly from the vent but would need to be uncapped at night vs PSV when sleeping. Will discuss with CM to see if there is family to obtain consent. 2. Neuro-Unsure of baseline mental state. Is improved compared to my last evaluation. LP negative. Please see number 1. Neuro feels all side effects from stroke. 3. ID-finished treatment 4. Renal-Appears to be chronic renal failure when reviewing labs from before. Improved and stable 5. Electrolytes- Will defer to nephrology as they are following. 6. Overall prognosis is guarded to poor. Patient is likely a poor candidate for HD given other comorbid disease. 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 Subjective Date of service: 12/10/18 Principal diagnosis: low plt Interval history: No acute events. Per RT still having apnea on PSV. Spoke with RT this morning and they are going to attempt PSV now. Still no family present. Remainder is negative. Objective Vital Signs - 12hr 12/10/18 12/10/18 12/10/18 00:00 00:35 01:00 Temperature 98.2 F Pulse Rate 122 H 126 H 122 H Pulse Rate [ Anterior Bilateral Throughout] Pulse Rate [ From Monitor] Respiratory 25 H 26 H Rate Respiratory Rate [Anterior Bilateral Throughout] Blood Pressure 116/74 116/74 118/76 O2 Sat by Pulse 100 98 98 Oximetry 12/10/18 12/10/18 12/10/18 02:00 03:00 04:00 Temperature 98.7 F Pulse Rate 125 H 123 H 121 H Pulse Rate [ Anterior Bilateral Throughout] Pulse Rate [ From Monitor] Respiratory 28 H 24 25 H Rate Respiratory Rate [Anterior Bilateral Throughout] Blood Pressure 118/76 117/77 116/80 O2 Sat by Pulse 98 98 97 Oximetry 12/10/18 12/10/18 12/10/18 04:32 05:00 06:00 Temperature 98.6 F Pulse Rate 97 H 122 H 123 H Pulse Rate [ Anterior Bilateral Throughout] Pulse Rate [ From Monitor] Respiratory 20 24 Rate Respiratory Rate [Anterior Bilateral Throughout] Blood Pressure 116/80 112/65 113/72 O2 Sat by Pulse 100 98 99 Oximetry 12/10/18 12/10/18 12/10/18 07:00 07:51 07:57 Temperature Pulse Rate 123 H 114 H Pulse Rate [ 123 H Anterior Bilateral Throughout] Pulse Rate [ From Monitor] Respiratory 23 Rate Respiratory 25 H Rate [Anterior Bilateral Throughout] Blood Pressure 120/80 120/80 O2 Sat by Pulse 98 99 Oximetry 12/10/18 12/10/18 12/10/18 08:00 08:01 09:00 Temperature 98.5 F Pulse Rate 127 H 121 H Pulse Rate [ Anterior Bilateral Throughout] Pulse Rate [ 115 H From Monitor] Respiratory 21 25 H 25 H Rate Respiratory Rate [Anterior Bilateral Throughout] Blood Pressure 117/76 120/78 O2 Sat by Pulse 98 98 98 Oximetry 12/10/18 12/10/18 10:00 11:00 Temperature Pulse Rate 122 H 123 H Pulse Rate [ Anterior Bilateral Throughout] Pulse Rate [ From Monitor] Respiratory 19 27 H Rate Respiratory Rate [Anterior Bilateral Throughout] Blood Pressure 117/74 123/84 O2 Sat by Pulse 97 97 Oximetry Constitutional: other (critically ill on vent, awake, eyes open) Eyes: non-icteric ENT: oropharynx moist, other (intubated) Neck: supple Effort: normal Ascultation: Bilateral: clear, diminished breath sounds, rhonchi Percussion: Bilateral: not dull Cardiovascular: other (tachy, RR; no mrg) Gastrointestinal: normoactive bowel sounds, soft, non-tender, non-distended Extremities: no cyanosis, no edema, pink and warm Neurologic: other (eyes open, not following commands for me) Psychiatric: other (unable to assess) CBC and BMP: 12/07/18 02:40 12/10/18 05:08 ABG, PT/INR, D-dimer: ABG POC ABG pH 7.437 (7.35-7.45) 12/04/18 03:48 ABG pH 7.440 pH Units (7.350-7.450) 12/10/18 04:40 ABG pCO2 34.0 mm Hg 12/10/18 04:40 POC ABG pO2 82 (80-105) 12/04/18 03:48 ABG pO2 80.8 mm Hg (80.0-90.0) 12/10/18 04:40 POC ABG HCO3 19.3 (22-26 mml/L) 12/04/18 03:48 POC ABG Total CO2 20 (23-27mmol/L) 12/04/18 03:48 POC ABG O2 Sat 97 12/04/18 03:48 ABG O2 Saturation 96.9 % (95.0-99.0) 12/10/18 04:40 PT/INR, D-dimer PT 17.0 Sec. (12.2-14.9) H 12/04/18 08:01 INR 1.42 (0.87-1.13) H 12/04/18 08:01 Abnormal lab findings: Abnormal Labs 11/29/18 11/29/18 11/29/18 13:07 13:39 13:39 WBC 3.2 L RBC 2.76 L Hgb 10.4 L Hct 32.1 L MCV 116 H MCH 38 H RDW 17.5 H Plt Count 48 L Lymph % (Auto) 5.4 L Lymph # 0.2 L Seg Neutrophils % 89.5 H Seg Neuts % (Manual) Lymphocytes % (Manual) Lymphocytes # (Manual) PT INR POC ABG pH POC ABG pO2 ABG pO2 ABG HCO3 ABG O2 Saturation ABG Base Excess ABG Hemoglobin VBG pH Oxyhemoglobin Sodium 153 H Potassium Chloride 113.3 H Carbon Dioxide 21 L BUN 55 H Creatinine 2.4 H Glucose 260 H POC Glucose 289 H Calcium Iron TIBC AST 68 H Alkaline Phosphatase 239 H Total Creatine Kinase 243 H Troponin T 0.054 H Total Protein 5.8 L Albumin 3.0 L LDL Cholesterol Direct 30 L HDL Cholesterol 63 H Vitamin B12 Folate Urine Creatinine Salicylates Acetaminophen 11/29/18 11/29/18 11/29/18 13:39 13:39 13:39 WBC RBC Hgb Hct MCV MCH RDW Plt Count Lymph % (Auto) Lymph # Seg Neutrophils % Seg Neuts % (Manual) Lymphocytes % (Manual) Lymphocytes # (Manual) PT INR POC ABG pH POC ABG pO2 ABG pO2 ABG HCO3 ABG O2 Saturation ABG Base Excess ABG Hemoglobin VBG pH 7.186 L* Oxyhemoglobin Sodium Potassium Chloride Carbon Dioxide BUN Creatinine Glucose POC Glucose Calcium Iron TIBC AST Alkaline Phosphatase Total Creatine Kinase Troponin T Total Protein Albumin LDL Cholesterol Direct HDL Cholesterol Vitamin B12 Folate Urine Creatinine Salicylates < 0.3 L Acetaminophen < 5.0 L 11/29/18 11/29/18 11/30/18 14:24 21:17 05:50 WBC RBC Hgb Hct MCV MCH RDW Plt Count Lymph % (Auto) Lymph # Seg Neutrophils % Seg Neuts % (Manual) Lymphocytes % (Manual) Lymphocytes # (Manual) PT INR POC ABG pH 7.319 L POC ABG pO2 126 H ABG pO2 203.3 H ABG HCO3 18.5 L ABG O2 Saturation 99.3 H ABG Base Excess -6.2 L ABG Hemoglobin 10.9 L VBG pH Oxyhemoglobin Sodium Potassium Chloride Carbon Dioxide BUN Creatinine Glucose POC Glucose 242 H Calcium Iron TIBC AST Alkaline Phosphatase Total Creatine Kinase Troponin T Total Protein Albumin LDL Cholesterol Direct HDL Cholesterol Vitamin B12 Folate Urine Creatinine Salicylates Acetaminophen 11/30/18 11/30/18 11/30/18 08:52 10:31 10:58 WBC RBC 3.05 L Hgb 11.5 L Hct 35.3 L MCV 116 H MCH 38 H RDW 17.2 H Plt Count 43 L Lymph % (Auto) Lymph # Seg Neutrophils % Seg Neuts % (Manual) Lymphocytes % (Manual) Lymphocytes # (Manual) PT INR POC ABG pH POC ABG pO2 ABG pO2 ABG HCO3 ABG O2 Saturation ABG Base Excess ABG Hemoglobin VBG pH Oxyhemoglobin Sodium 153 H Potassium Chloride 117.2 H Carbon Dioxide 18 L BUN 60 H Creatinine 2.8 H Glucose 216 H POC Glucose 234 H Calcium 8.2 L Iron TIBC AST Alkaline Phosphatase Total Creatine Kinase Troponin T Total Protein Albumin LDL Cholesterol Direct HDL Cholesterol Vitamin B12 Folate Urine Creatinine Salicylates Acetaminophen 11/30/18 11/30/18 11/30/18 12:40 14:20 17:35 WBC RBC Hgb Hct MCV MCH RDW Plt Count Lymph % (Auto) Lymph # Seg Neutrophils % Seg Neuts % (Manual) Lymphocytes % (Manual) Lymphocytes # (Manual) PT INR POC ABG pH POC ABG pO2 ABG pO2 ABG HCO3 ABG O2 Saturation ABG Base Excess ABG Hemoglobin VBG pH Oxyhemoglobin Sodium Potassium Chloride Carbon Dioxide BUN Creatinine Glucose POC Glucose 235 H 182 H Calcium Iron TIBC AST Alkaline Phosphatase Total Creatine Kinase Troponin T Total Protein Albumin LDL Cholesterol Direct HDL Cholesterol Vitamin B12 Folate Urine Creatinine 173.8 H Salicylates Acetaminophen 11/30/18 12/01/18 12/01/18 23:53 04:08 04:08 WBC RBC 3.11 L Hgb 11.7 L Hct 35.3 L MCV 113 H MCH 38 H RDW 16.9 H Plt Count 43 L Lymph % (Auto) Lymph # Seg Neutrophils % Seg Neuts % (Manual) Lymphocytes % (Manual) Lymphocytes # (Manual) PT INR POC ABG pH POC ABG pO2 ABG pO2 ABG HCO3 ABG O2 Saturation ABG Base Excess ABG Hemoglobin VBG pH Oxyhemoglobin Sodium 150 H Potassium Chloride 114.6 H Carbon Dioxide 16 L BUN 67 H Creatinine 2.9 H Glucose 193 H POC Glucose 149 H Calcium 8.2 L Iron TIBC AST Alkaline Phosphatase Total Creatine Kinase Troponin T Total Protein Albumin LDL Cholesterol Direct HDL Cholesterol Vitamin B12 Folate Urine Creatinine Salicylates Acetaminophen 12/01/18 12/01/18 12/01/18 04:55 05:11 13:33 WBC RBC Hgb Hct MCV MCH RDW Plt Count Lymph % (Auto) Lymph # Seg Neutrophils % Seg Neuts % (Manual) Lymphocytes % (Manual) Lymphocytes # (Manual) PT INR POC ABG pH POC ABG pO2 ABG pO2 91.9 H ABG HCO3 17.7 L ABG O2 Saturation ABG Base Excess -6.1 L ABG Hemoglobin 11.5 L VBG pH Oxyhemoglobin Sodium Potassium Chloride Carbon Dioxide BUN Creatinine Glucose POC Glucose 236 H 255 H Calcium Iron TIBC AST Alkaline Phosphatase Total Creatine Kinase Troponin T Total Protein Albumin LDL Cholesterol Direct HDL Cholesterol Vitamin B12 Folate Urine Creatinine Salicylates Acetaminophen 12/01/18 12/02/18 12/02/18 18:20 00:17 03:40 WBC RBC Hgb Hct MCV MCH RDW Plt Count Lymph % (Auto) Lymph # Seg Neutrophils % Seg Neuts % (Manual) Lymphocytes % (Manual) Lymphocytes # (Manual) PT INR POC ABG pH POC ABG pO2 ABG pO2 78.0 L ABG HCO3 16.4 L ABG O2 Saturation ABG Base Excess -6.2 L ABG Hemoglobin 11.4 L VBG pH Oxyhemoglobin 94.5 L Sodium Potassium Chloride Carbon Dioxide BUN Creatinine Glucose POC Glucose 177 H 192 H Calcium Iron TIBC AST Alkaline Phosphatase Total Creatine Kinase Troponin T Total Protein Albumin LDL Cholesterol Direct HDL Cholesterol Vitamin B12 Folate Urine Creatinine Salicylates Acetaminophen 09/04/2112/02/18 12/02/18 05:11 05:26 07:50 WBC 4.1 L RBC 3.01 L Hgb 11.4 L Hct 34.1 L MCV 113 H MCH 38 H RDW 17.3 H Plt Count 40 L Lymph % (Auto) Lymph # Seg Neutrophils % Seg Neuts % (Manual) Lymphocytes % (Manual) Lymphocytes # (Manual) PT INR POC ABG pH POC ABG pO2 ABG pO2 ABG HCO3 ABG O2 Saturation ABG Base Excess ABG Hemoglobin VBG pH Oxyhemoglobin Sodium Potassium 5.6 H D Chloride 113.0 H Carbon Dioxide 16 L BUN 73 H Creatinine 2.8 H Glucose 202 H POC Glucose 179 H Calcium Iron TIBC AST Alkaline Phosphatase Total Creatine Kinase Troponin T Total Protein Albumin LDL Cholesterol Direct HDL Cholesterol Vitamin B12 Folate Urine Creatinine Salicylates Acetaminophen 12/02/18 12/02/18 12/02/18 11:57 18:40 18:43 WBC RBC Hgb Hct MCV MCH RDW Plt Count Lymph % (Auto) Lymph # Seg Neutrophils % Seg Neuts % (Manual) Lymphocytes % (Manual) Lymphocytes # (Manual) PT INR POC ABG pH POC ABG pO2 ABG pO2 ABG HCO3 ABG O2 Saturation ABG Base Excess ABG Hemoglobin VBG pH Oxyhemoglobin Sodium Potassium Chloride Carbon Dioxide BUN Creatinine Glucose POC Glucose 140 H 286 H 261 H Calcium Iron TIBC AST Alkaline Phosphatase Total Creatine Kinase Troponin T Total Protein Albumin LDL Cholesterol Direct HDL Cholesterol Vitamin B12 Folate Urine Creatinine Salicylates Acetaminophen 12/02/18 12/03/18 12/03/18 23:55 04:06 04:06 WBC 4.4 L RBC 2.96 L Hgb 11.3 L Hct 33.1 L MCV 112 H MCH 38 H RDW 16.7 H Plt Count 38 L Lymph % (Auto) Lymph # Seg Neutrophils % Seg Neuts % (Manual) Lymphocytes % (Manual) Lymphocytes # (Manual) PT INR POC ABG pH POC ABG pO2 ABG pO2 ABG HCO3 ABG O2 Saturation ABG Base Excess ABG Hemoglobin VBG pH Oxyhemoglobin Sodium 146 H Potassium Chloride 112.5 H Carbon Dioxide 18 L BUN 71 H Creatinine 2.5 H Glucose 258 H POC Glucose 303 H Calcium 8.3 L Iron TIBC AST Alkaline Phosphatase Total Creatine Kinase Troponin T Total Protein Albumin LDL Cholesterol Direct HDL Cholesterol Vitamin B12 Folate Urine Creatinine Salicylates Acetaminophen 12/03/18 12/03/18 12/03/18 05:17 11:25 17:46 WBC RBC Hgb Hct MCV MCH RDW Plt Count Lymph % (Auto) Lymph # Seg Neutrophils % Seg Neuts % (Manual) Lymphocytes % (Manual) Lymphocytes # (Manual) PT INR POC ABG pH POC ABG pO2 ABG pO2 ABG HCO3 ABG O2 Saturation ABG Base Excess ABG Hemoglobin VBG pH Oxyhemoglobin Sodium Potassium Chloride Carbon Dioxide BUN Creatinine Glucose POC Glucose 328 H 288 H 202 H Calcium Iron TIBC AST Alkaline Phosphatase Total Creatine Kinase Troponin T Total Protein Albumin LDL Cholesterol Direct HDL Cholesterol Vitamin B12 Folate Urine Creatinine Salicylates Acetaminophen 12/04/18 12/04/18 12/04/18 01:15 05:47 08:01 WBC RBC 3.11 L Hgb 11.7 L Hct MCV 115 H MCH 38 H RDW 17.6 H Plt Count 35 L Lymph % (Auto) 6.9 L Lymph # 0.3 L Seg Neutrophils % 87.7 H Seg Neuts % (Manual) Lymphocytes % (Manual) Lymphocytes # (Manual) PT INR POC ABG pH POC ABG pO2 ABG pO2 ABG HCO3 ABG O2 Saturation ABG Base Excess ABG Hemoglobin VBG pH Oxyhemoglobin Sodium Potassium Chloride Carbon Dioxide BUN Creatinine Glucose POC Glucose 282 H 265 H Calcium Iron TIBC AST Alkaline Phosphatase Total Creatine Kinase Troponin T Total Protein Albumin LDL Cholesterol Direct HDL Cholesterol Vitamin B12 Folate Urine Creatinine Salicylates Acetaminophen 12/04/18 12/04/18 12/04/18 08:01 08:01 08:01 WBC RBC Hgb Hct MCV MCH RDW Plt Count Lymph % (Auto) Lymph # Seg Neutrophils % Seg Neuts % (Manual) Lymphocytes % (Manual) Lymphocytes # (Manual) PT 17.0 H INR 1.42 H POC ABG pH POC ABG pO2 ABG pO2 ABG HCO3 ABG O2 Saturation ABG Base Excess ABG Hemoglobin VBG pH Oxyhemoglobin Sodium Potassium Chloride 114.6 H Carbon Dioxide 20 L BUN 62 H Creatinine 2.0 H Glucose 266 H POC Glucose Calcium 8.3 L Iron 20 L TIBC 168 L AST Alkaline Phosphatase 292 H Total Creatine Kinase Troponin T Total Protein 5.2 L Albumin 2.1 L LDL Cholesterol Direct HDL Cholesterol Vitamin B12 Folate 7.24 L Urine Creatinine Salicylates Acetaminophen 12/04/18 12/04/18 12/04/18 11:59 17:59 22:59 WBC RBC Hgb Hct MCV MCH RDW Plt Count Lymph % (Auto) Lymph # Seg Neutrophils % Seg Neuts % (Manual) Lymphocytes % (Manual) Lymphocytes # (Manual) PT INR POC ABG pH POC ABG pO2 ABG pO2 ABG HCO3 ABG O2 Saturation ABG Base Excess ABG Hemoglobin VBG pH Oxyhemoglobin Sodium Potassium Chloride Carbon Dioxide BUN Creatinine Glucose POC Glucose 267 H 226 H 341 H Calcium Iron TIBC AST Alkaline Phosphatase Total Creatine Kinase Troponin T Total Protein Albumin LDL Cholesterol Direct HDL Cholesterol Vitamin B12 Folate Urine Creatinine Salicylates Acetaminophen 12/05/18 12/05/18 12/05/18 03:42 03:42 03:42 WBC RBC 2.89 L Hgb 10.8 L Hct 32.2 L MCV 111 H MCH 37 H RDW 16.8 H Plt Count 47 L Lymph % (Auto) 5.5 L Lymph # 0.3 L Seg Neutrophils % 89.9 H Seg Neuts % (Manual) Lymphocytes % (Manual) Lymphocytes # (Manual) PT INR POC ABG pH POC ABG pO2 ABG pO2 ABG HCO3 ABG O2 Saturation ABG Base Excess ABG Hemoglobin VBG pH Oxyhemoglobin Sodium 146 H Potassium Chloride 113.3 H Carbon Dioxide 19 L BUN 55 H Creatinine 1.8 H Glucose 268 H POC Glucose Calcium 8.3 L Iron TIBC AST Alkaline Phosphatase Total Creatine Kinase Troponin T Total Protein Albumin LDL Cholesterol Direct HDL Cholesterol Vitamin B12 1798 H Folate Urine Creatinine Salicylates Acetaminophen 12/05/18 12/05/18 12/05/18 04:14 18:38 23:59 WBC RBC Hgb Hct MCV MCH RDW Plt Count Lymph % (Auto) Lymph # Seg Neutrophils % Seg Neuts % (Manual) Lymphocytes % (Manual) Lymphocytes # (Manual) PT INR POC ABG pH POC ABG pO2 ABG pO2 75.1 L ABG HCO3 ABG O2 Saturation ABG Base Excess -4.0 L ABG Hemoglobin 8.2 L VBG pH Oxyhemoglobin 94.0 L Sodium Potassium Chloride Carbon Dioxide BUN Creatinine Glucose POC Glucose 150 H 215 H Calcium Iron TIBC AST Alkaline Phosphatase Total Creatine Kinase Troponin T Total Protein Albumin LDL Cholesterol Direct HDL Cholesterol Vitamin B12 Folate Urine Creatinine Salicylates Acetaminophen 12/06/18 12/06/18 12/06/18 04:02 04:02 04:44 WBC RBC 2.88 L Hgb 10.6 L Hct 32.8 L MCV 114 H MCH 37 H RDW 17.3 H Plt Count 59 L Lymph % (Auto) 7.1 L Lymph # 0.4 L Seg Neutrophils % 87.9 H Seg Neuts % (Manual) Lymphocytes % (Manual) Lymphocytes # (Manual) PT INR POC ABG pH POC ABG pO2 ABG pO2 ABG HCO3 ABG O2 Saturation ABG Base Excess -2.7 L ABG Hemoglobin 10.5 L VBG pH Oxyhemoglobin 94.7 L Sodium 146 H Potassium Chloride 111.9 H Carbon Dioxide 21 L BUN 52 H Creatinine 1.7 H Glucose 254 H POC Glucose Calcium 8.3 L Iron TIBC AST Alkaline Phosphatase Total Creatine Kinase Troponin T Total Protein Albumin LDL Cholesterol Direct HDL Cholesterol Vitamin B12 Folate Urine Creatinine Salicylates Acetaminophen 12/06/18 12/06/18 12/06/18 05:59 12:08 17:52 WBC RBC Hgb Hct MCV MCH RDW Plt Count Lymph % (Auto) Lymph # Seg Neutrophils % Seg Neuts % (Manual) Lymphocytes % (Manual) Lymphocytes # (Manual) PT INR POC ABG pH POC ABG pO2 ABG pO2 ABG HCO3 ABG O2 Saturation ABG Base Excess ABG Hemoglobin VBG pH Oxyhemoglobin Sodium Potassium Chloride Carbon Dioxide BUN Creatinine Glucose POC Glucose 270 H 119 H 158 H Calcium Iron TIBC AST Alkaline Phosphatase Total Creatine Kinase Troponin T Total Protein Albumin LDL Cholesterol Direct HDL Cholesterol Vitamin B12 Folate Urine Creatinine Salicylates Acetaminophen 12/07/18 12/07/18 12/07/18 00:00 02:40 02:40 WBC RBC 2.78 L Hgb 10.2 L Hct 31.5 L MCV 113 H MCH 37 H RDW 16.7 H Plt Count 57 L Lymph % (Auto) Lymph # Seg Neutrophils % Seg Neuts % (Manual) 99.0 H Lymphocytes % (Manual) 1.0 L Lymphocytes # (Manual) 0.1 L PT INR POC ABG pH POC ABG pO2 ABG pO2 ABG HCO3 ABG O2 Saturation ABG Base Excess ABG Hemoglobin VBG pH Oxyhemoglobin Sodium 147 H Potassium 3.4 L Chloride 111.6 H Carbon Dioxide 19 L BUN 50 H Creatinine 1.6 H Glucose 243 H POC Glucose 203 H Calcium Iron TIBC AST Alkaline Phosphatase Total Creatine Kinase Troponin T Total Protein Albumin LDL Cholesterol Direct HDL Cholesterol Vitamin B12 Folate Urine Creatinine Salicylates Acetaminophen 12/07/18 12/07/18 12/07/18 05:27 11:49 17:30 WBC RBC Hgb Hct MCV MCH RDW Plt Count Lymph % (Auto) Lymph # Seg Neutrophils % Seg Neuts % (Manual) Lymphocytes % (Manual) Lymphocytes # (Manual) PT INR POC ABG pH POC ABG pO2 ABG pO2 ABG HCO3 ABG O2 Saturation ABG Base Excess ABG Hemoglobin VBG pH Oxyhemoglobin Sodium Potassium Chloride Carbon Dioxide BUN Creatinine Glucose POC Glucose 299 H 249 H 205 H Calcium Iron TIBC AST Alkaline Phosphatase Total Creatine Kinase Troponin T Total Protein Albumin LDL Cholesterol Direct HDL Cholesterol Vitamin B12 Folate Urine Creatinine Salicylates Acetaminophen 12/08/18 12/08/18 12/08/18 00:09 03:43 05:09 WBC RBC Hgb Hct MCV MCH RDW Plt Count Lymph % (Auto) Lymph # Seg Neutrophils % Seg Neuts % (Manual) Lymphocytes % (Manual) Lymphocytes # (Manual) PT INR POC ABG pH POC ABG pO2 ABG pO2 ABG HCO3 ABG O2 Saturation ABG Base Excess ABG Hemoglobin VBG pH Oxyhemoglobin Sodium Potassium Chloride 110.9 H Carbon Dioxide 21 L BUN 53 H Creatinine 1.6 H Glucose 311 H POC Glucose 312 H 363 H Calcium Iron TIBC AST Alkaline Phosphatase Total Creatine Kinase Troponin T Total Protein Albumin LDL Cholesterol Direct HDL Cholesterol Vitamin B12 Folate Urine Creatinine Salicylates Acetaminophen 12/08/18 12/08/18 12/08/18 07:35 12:18 17:51 WBC RBC Hgb Hct MCV MCH RDW Plt Count Lymph % (Auto) Lymph # Seg Neutrophils % Seg Neuts % (Manual) Lymphocytes % (Manual) Lymphocytes # (Manual) PT INR POC ABG pH POC ABG pO2 ABG pO2 ABG HCO3 ABG O2 Saturation ABG Base Excess ABG Hemoglobin VBG pH Oxyhemoglobin Sodium Potassium Chloride Carbon Dioxide BUN Creatinine Glucose POC Glucose 347 H 332 H 198 H Calcium Iron TIBC AST Alkaline Phosphatase Total Creatine Kinase Troponin T Total Protein Albumin LDL Cholesterol Direct HDL Cholesterol Vitamin B12 Folate Urine Creatinine Salicylates Acetaminophen 12/08/18 12/09/18 12/09/18 23:42 04:38 05:33 WBC RBC Hgb Hct MCV MCH RDW Plt Count Lymph % (Auto) Lymph # Seg Neutrophils % Seg Neuts % (Manual) Lymphocytes % (Manual) Lymphocytes # (Manual) PT INR POC ABG pH POC ABG pO2 ABG pO2 ABG HCO3 ABG O2 Saturation ABG Base Excess ABG Hemoglobin VBG pH Oxyhemoglobin Sodium Potassium Chloride 111.5 H Carbon Dioxide BUN 55 H Creatinine 1.7 H Glucose 246 H POC Glucose 226 H 271 H Calcium 8.2 L Iron TIBC AST Alkaline Phosphatase Total Creatine Kinase Troponin T Total Protein Albumin LDL Cholesterol Direct HDL Cholesterol Vitamin B12 Folate Urine Creatinine Salicylates Acetaminophen 12/09/18 12/09/18 12/09/18 12:08 18:13 20:03 WBC RBC Hgb Hct MCV MCH RDW Plt Count Lymph % (Auto) Lymph # Seg Neutrophils % Seg Neuts % (Manual) Lymphocytes % (Manual) Lymphocytes # (Manual) PT INR POC ABG pH POC ABG pO2 ABG pO2 ABG HCO3 ABG O2 Saturation ABG Base Excess ABG Hemoglobin VBG pH Oxyhemoglobin Sodium Potassium Chloride Carbon Dioxide BUN Creatinine Glucose POC Glucose 255 H 214 H 195 H Calcium Iron TIBC AST Alkaline Phosphatase Total Creatine Kinase Troponin T Total Protein Albumin LDL Cholesterol Direct HDL Cholesterol Vitamin B12 Folate Urine Creatinine Salicylates Acetaminophen 12/09/18 12/10/18 12/10/18 23:32 04:40 05:08 WBC RBC Hgb Hct MCV MCH RDW Plt Count Lymph % (Auto) Lymph # Seg Neutrophils % Seg Neuts % (Manual) Lymphocytes % (Manual) Lymphocytes # (Manual) PT INR POC ABG pH POC ABG pO2 ABG pO2 ABG HCO3 ABG O2 Saturation ABG Base Excess ABG Hemoglobin 10.6 L VBG pH Oxyhemoglobin 94.8 L Sodium Potassium 3.5 L Chloride 111.3 H Carbon Dioxide BUN 53 H Creatinine 1.6 H Glucose 125 H POC Glucose 140 H Calcium 8.1 L Iron TIBC AST Alkaline Phosphatase Total Creatine Kinase Troponin T Total Protein Albumin LDL Cholesterol Direct HDL Cholesterol Vitamin B12 Folate Urine Creatinine Salicylates Acetaminophen 12/10/18 05:27 WBC RBC Hgb Hct MCV MCH RDW Plt Count Lymph % (Auto) Lymph # Seg Neutrophils % Seg Neuts % (Manual) Lymphocytes % (Manual) Lymphocytes # (Manual) PT INR POC ABG pH POC ABG pO2 ABG pO2 ABG HCO3 ABG O2 Saturation ABG Base Excess ABG Hemoglobin VBG pH Oxyhemoglobin Sodium Potassium Chloride Carbon Dioxide BUN Creatinine Glucose POC Glucose 133 H Calcium Iron TIBC AST Alkaline Phosphatase Total Creatine Kinase Troponin T Total Protein Albumin LDL Cholesterol Direct HDL Cholesterol Vitamin B12 Folate Urine Creatinine Salicylates Acetaminophen
[2018-12-10] MEDS: SODIUM CHLORIDE FLUSH SYRINGE 10 ML IV SCH ×2 (12:48→21:48)
--- NOTE | 2018-12-10 13:28 | Progress Note ---
Assessment and Plan 1. Acute kidney injury: Vasomotor CONNIE superimposed on CKD in the setting of hypotension. Renal US negative for hydro. Renal function is better, around his baseline. Monitor renal function. Renal prognosis is guarded. Avoid nephrotoxic agents. Meds dosage based on GFR. 2. FEN: Hypokalemia, replete K. Hypernatremia, continue free water flushes. Monitor lytes. 3. Acute hypoxic respiratory failure: Intubated on vent. 4. Acute Metabolic Encephalopathy. 5. Elevated troponin. 6. Macrocytic anemia: POA. Low Folate, continue Folic acid. 7. Type 2 DM. Subjective Date of service: 12/10/18 Principal diagnosis: low plt Interval history: Patient was seen and examined at the bedside. Objective - Vital Signs Vital signs: Vital Signs - 12hr 12/10/18 12/10/18 12/10/18 02:00 03:00 04:00 Temperature 98.7 F Pulse Rate 125 H 123 H 121 H Pulse Rate [ Anterior Bilateral Throughout] Pulse Rate [ From Monitor] Respiratory 28 H 24 25 H Rate Respiratory Rate [Anterior Bilateral Throughout] Blood Pressure 118/76 117/77 116/80 O2 Sat by Pulse 98 98 97 Oximetry 12/10/18 12/10/18 12/10/18 04:32 05:00 06:00 Temperature 98.6 F Pulse Rate 97 H 122 H 123 H Pulse Rate [ Anterior Bilateral Throughout] Pulse Rate [ From Monitor] Respiratory 20 24 Rate Respiratory Rate [Anterior Bilateral Throughout] Blood Pressure 116/80 112/65 113/72 O2 Sat by Pulse 100 98 99 Oximetry 12/10/18 12/10/18 12/10/18 07:00 07:51 07:57 Temperature Pulse Rate 123 H 114 H Pulse Rate [ 123 H Anterior Bilateral Throughout] Pulse Rate [ From Monitor] Respiratory 23 Rate Respiratory 25 H Rate [Anterior Bilateral Throughout] Blood Pressure 120/80 120/80 O2 Sat by Pulse 98 99 Oximetry 12/10/18 12/10/18 12/10/18 08:00 08:01 09:00 Temperature 98.5 F Pulse Rate 127 H 121 H Pulse Rate [ Anterior Bilateral Throughout] Pulse Rate [ 115 H From Monitor] Respiratory 21 25 H 25 H Rate Respiratory Rate [Anterior Bilateral Throughout] Blood Pressure 117/76 120/78 O2 Sat by Pulse 98 98 98 Oximetry 12/10/18 12/10/18 12/10/18 10:00 11:00 12:00 Temperature 98.7 F Pulse Rate 122 H 123 H 125 H Pulse Rate [ Anterior Bilateral Throughout] Pulse Rate [ 119 H From Monitor] Respiratory 19 27 H 19 Rate Respiratory Rate [Anterior Bilateral Throughout] Blood Pressure 117/74 123/84 118/76 O2 Sat by Pulse 97 97 99 Oximetry 12/10/18 12:15 Temperature Pulse Rate Pulse Rate [ 120 H Anterior Bilateral Throughout] Pulse Rate [ From Monitor] Respiratory Rate Respiratory 20 Rate [Anterior Bilateral Throughout] Blood Pressure O2 Sat by Pulse Oximetry - General Appearance General appearance: well-developed, appears stated age, intubated, other (on vent, no distress) EENT: ATNC, PERRL Neck: supple Respiratory: Present: Clear to Ascultation Cardiology: tachycardia, S1S2 Gastrointestinal: normoactive bowel sounds, no tenderness, no distended Integumentary: other (LE dressing noted) Neurologic: other (opens eyes) Musculoskeletal: other (trace dependent edema noted) - Lab 12/07/18 02:40 12/10/18 05:08 Most recent lab results ABG pH 7.440 pH Units (7.350-7.450) 12/10/18 04:40 ABG pCO2 34.0 mm Hg 12/10/18 04:40 ABG pO2 80.8 mm Hg (80.0-90.0) 12/10/18 04:40 ABG HCO3 22.6 mmol/L (20.0-26.0) 12/10/18 04:40 ABG O2 Saturation 96.9 % (95.0-99.0) 12/10/18 04:40 Calcium 8.1 mg/dL (8.4-10.2) L 12/10/18 05:08 Phosphorus 2.80 mg/dL (2.5-4.5) 12/04/18 08:01 Magnesium 2.10 mg/dL (1.7-2.3) 12/04/18 08:01 173.8 mg/dL (0.1-20.0) H 11/30/18 14:20 18 mmol/L 11/30/18 14:20 Medications & Allergies - Medications Allergies/Adverse Reactions: Allergies No Known Allergies Allergy (Unverified 03/29/16 00:43) Home Medications: Home Medications Medication Instructions Recorded Confirmed Last Taken Type Aspirin [Aspirin BABY CHEW TAB] 81 mg PO QDAY #30 tab.chew 11/15/17 11/29/18 Unknown Rx Amlodipine Besylate 10 mg PO QDAY 05/21/18 11/29/18 Unknown History Carvedilol 6.25 mg PO BID 05/21/18 11/29/18 Unknown History Isentress 400 mg PO Q12HR 05/21/18 11/29/18 Unknown History Rosuvastatin Calcium 10 mg PO DAILY 05/21/18 11/29/18 Unknown History Memantine [Namenda] 5 mg PO QDAY #30 tablet 11/01/18 11/29/18 Unknown Rx Albuterol Sulfate [Albuterol 0.63% 0.63 mg IH TID PRN 30 Days ml 11/07/18 11/29/18 Unknown Rx NEBS] AtorvaSTATin [Lipitor] 20 mg PO QDAY #30 tablet 11/07/18 11/29/18 Unknown Rx Famotidine [Pepcid] 10 mg PO BID #60 tablet 11/07/18 11/29/18 Unknown Rx Ipratropium/Albuterol Sulfate 1 ampul IH Q6HR 30 Days ampul.neb 11/07/18 11/29/18 Unknown Rx [DUONEB *Not for PRN Use*] Tamsulosin [Flomax] 0.4 mg PO QHS #30 capsule 11/07/18 11/29/18 Unknown Rx Zidovudine 300 mg PO DAILY 11/09/18 11/29/18 Unknown History Insulin Regular, Human [HumuLIN R] 0 unit SQ AC #1 vial 11/12/18 11/29/18 Unknown Rx Active Medications: Generic Name Dose Route Start Last Admin Trade Name Freq PRN Reason Stop Dose Admin Abacavir Sulfate 600 mg 11/30/18 16:00 12/10/18 10:47 Ziagen PO Not Given DAILY KEN Albuterol 2.5 mg 11/30/18 00:17 Proventil IH Q4HRT PRN Shortness Of Breath Albuterol/Ipratropium 1 ampul 11/30/18 08:00 12/10/18 12:14 Duoneb *Not For Prn Use* IH 1 ampul QIDRT KEN Administration Lipase/Protease/Amylase 1 each 12/03/18 10:42 Pancredavis Manning 10,500 Unit FEEDTUBE PRN PRN For Clogged Feeding Tube Docusate Sodium 100 mg 12/08/18 13:00 12/10/18 10:55 Colace PO 100 mg BID KEN Administration Famotidine 10 mg 12/04/18 11:00 12/10/18 10:55 Pepcid PO 10 mg BID KEN Administration Fentanyl 50 mcg 12/04/18 17:28 12/09/18 23:53 Sublimaze IV 50 mcg Q2H PRN Administration INCREASED AGITATION Folic Acid 1 mg 12/04/18 12:00 12/10/18 10:55 Folvite PO 1 mg QDAY KEN Administration Insulin Glargine 12 units 12/09/18 12:00 12/09/18 23:54 Lantus SUB-Q 12 units Q12H KEN Administration Insulin Human Lispro 0 unit 11/30/18 07:00 12/10/18 12:48 Humalog SUB-Q 4 unit Q6HR KEN Administration Protocol Lamivudine 150 mg 12/06/18 10:00 12/10/18 10:57 Epivir PO 150 mg DAILY KEN Administration Metoclopramide HCl 5 mg 11/30/18 00:22 Reglan IV Q6H PRN Nausea And Vomiting Ondansetron HCl 4 mg 11/30/18 00:06 Zofran IV Q8H PRN Nausea And Vomiting Raltegravir 400 mg 11/30/18 16:00 12/10/18 10:57 Isentress PO 400 mg BID KEN Administration Simple Syrup 15 ml 12/03/18 10:42 Simple Syrup FEEDTUBE PRN PRN Hypoglycemia Simple Syrup 30 ml 12/03/18 10:42 Simple Syrup FEEDTUBE PRN PRN Hypoglycemia Sodium Bicarbonate 325 mg 12/03/18 10:42 Sodium Bicarbonate FEEDTUBE PRN PRN For Clogged Feeding Tube Sodium Chloride 10 ml 11/30/18 10:00 12/10/18 12:48 Sodium Chloride Flush Syringe 10 Ml IV 10 ml BID KEN Administration Sodium Chloride 10 ml 11/30/18 00:06 Sodium Chloride Flush Syringe 10 Ml IV PRN PRN LINE FLUSH Zidovudine 300 mg 11/30/18 16:00 12/10/18 10:59 Retrovir PO 300 mg BID KEN Administration
--- NOTE | 2018-12-10 13:30 | Progress Note ---
Assessment and Plan Altered mental status Respiratory failure Thrombocytopenia Hx of CVA Non-specific troponin Cardiomyopathy, EF 15-20% Moderate to severe MR and TR Renal failure HIV Conservative cardiac management. Subjective Date of service: 12/10/18 Principal diagnosis: low plt Interval history: No cardiac events overnight. Objective Vital Signs Temp Pulse Pulse Pulse Resp Resp BP 12/10/18 12:15 120 H 20 12/10/18 12:00 98.7 F 125 H 119 H 19 118/76 12/10/18 11:00 123 H 27 H 123/84 12/10/18 10:00 122 H 19 117/74 12/10/18 09:00 121 H 25 H 120/78 12/10/18 08:01 127 H 25 H 117/76 12/10/18 08:00 98.5 F 115 H 21 12/10/18 07:57 123 H 25 H 12/10/18 07:51 114 H 120/80 12/10/18 07:00 123 H 23 120/80 12/10/18 06:00 123 H 24 113/72 12/10/18 05:00 98.6 F 122 H 20 112/65 12/10/18 04:32 97 H 116/80 12/10/18 04:00 98.7 F 121 H 25 H 116/80 12/10/18 03:00 123 H 24 117/77 12/10/18 02:00 125 H 28 H 118/76 12/10/18 01:00 122 H 26 H 118/76 12/10/18 00:35 126 H 116/74 12/10/18 00:00 98.2 F 122 H 25 H 116/74 12/09/18 23:00 129 H 24 112/73 12/09/18 22:00 122 H 24 112/73 12/09/18 21:41 121 H 24 12/09/18 21:39 122 H 115/74 12/09/18 21:00 121 H 24 116/77 12/09/18 20:00 98.7 F 126 H 117 H 23 116/77 12/09/18 19:00 120 H 23 114/74 12/09/18 18:40 111 H 22 114/66 12/09/18 18:00 95 H 21 114/66 12/09/18 17:00 118 H 20 118/80 12/09/18 16:00 98.9 F 98 H 117 H 22 109/74 12/09/18 15:00 124 H 24 112/76 12/09/18 14:01 126 H 23 112/76 12/09/18 14:00 118 H 24 Pulse Ox 12/10/18 12:15 12/10/18 12:00 99 12/10/18 11:00 97 12/10/18 10:00 97 12/10/18 09:00 98 12/10/18 08:01 98 12/10/18 08:00 98 12/10/18 07:57 12/10/18 07:51 99 12/10/18 07:00 98 12/10/18 06:00 99 12/10/18 05:00 98 12/10/18 04:32 100 12/10/18 04:00 97 12/10/18 03:00 98 12/10/18 02:00 98 12/10/18 01:00 98 12/10/18 00:35 98 12/10/18 00:00 100 12/09/18 23:00 99 12/09/18 22:00 12/09/18 21:41 12/09/18 21:39 99 12/09/18 21:00 100 12/09/18 20:00 97 12/09/18 19:00 98 12/09/18 18:40 99 12/09/18 18:00 99 12/09/18 17:00 99 12/09/18 16:00 99 12/09/18 15:00 100 12/09/18 14:01 98 12/09/18 14:00 - Physical Examination General: Other (on the vent) HEENT: Positive: PERRL Neck: Positive: trachea midline Cardiac: Positive: Tachycardia Neuro: Positive: Other (unresponsive, on the vent) - Labs and Meds Comprehensive Metabolic Panel 12/10/18 Range/Units 05:08 Sodium 145 (137-145) mmol/L Potassium 3.5 L (3.6-5.0) mmol/L Chloride 111.3 H (98-107) mmol/L Carbon Dioxide 23 (22-30) mmol/L BUN 53 H (9-20) mg/dL Creatinine 1.6 H (0.8-1.5) mg/dL Glucose 125 H (75-100) mg/dL Calcium 8.1 L (8.4-10.2) mg/dL
--- NOTE | 2018-12-10 14:26 | Progress Note ---
Assessment and Plan Assessment and plan: Patient is a 73 yo man from [facility] with severe end-stage co-morbities including HIV, type 2 DM, NSTEMI type 2, hyperkalemia, hypernatremia, malnutrition, severe CHF with EF 15-20%, Dementia, CVA with SAH after fall here at [facility] on 05/22/18 with transferred to [facility], recurrent bouts of hypog lycmia, who had been admitted 3 times this month of November 2018. Initially he was admitted on 10/24/18 to 11/01/18 due to AMS, new CVA was ruled out by MRI but did show chronic infarcts in the right parietal lobe and the right MCA MEDICAL ART THERAPIST watershed territory and chronic lacunar infarct in the right paracentral marsha area. It was recommended that patient go to SNF but refused and took him home. He returned 2 days later due to hypoglycemia, it appears he wasn't eating enough but still taking DM medications. He was then discharged to [facility] on 11/07/2018. He returned 2 days later on 11/09/2018 due to hypoxemia and hypoglycemia again. He was discharged back to the [facility] on . Now he returns to the ED on 11/29/18 with severe worsening AMS GCS of 5 requiring Intubation. I do not know why he is on Fentanyl drip. * CT head without contrast Impression: There is continued extensive microvascula r angiopathy as detailed...without CT evidence of acute ICH. * pCXR Impression: Minimal interstitial edema, ngt in stomach, needs advancing 5-10 cm, borderline cardiomegaly, no consolidation or effusion * Abd XRAY after NGT advancement, shows it is in the correct position * Prior admissions was secondary to Hypoglycemia * Neurology believes that prior stroke may be playing a part although imaging studies do not show any new stroke Acute Metabolic Encephalopathy, poa, work up in progress: ? secondary to HIV, consulted Neurology, input noted,MRI still pending, LP negative unbale to locate EMS run sheet. Acute respiratory failure >96 hours poa s/p ETT placement: consulted Pulmonology, input noted- ON PS may consider extubation if tolerating SIRS with possible Sepsis: Continue cefepime, to complete today. ID following, awaiting cultures. Acute on chronic systolic heart failure (congestive heart failure) 15-20%, mild: treat medically, bp borderline too low for IV lasix, consulted Cardiology, input noted HIV (human immunodeficiency virus infection): ID consulted, input noted Acute renal insufficiency, ATN + vasomotor nephropathy, poa: monitor uop q shift, nephrology consulted, urine electrolytes, strict I/O, monitor uop q shift, monitor fluid balance, monitor serum creatnine, some improvement noted Type 2 DM on Insulin with recurrent hypoglycemia now stable: treat with SSI, ADA, ADJUST FOR BETTER CONTROL Severe malnutrition, as evidence by decubitus ulcers, inadequate nutritional i ntake, and muscle wasting. 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 Unclear source. CC-35 mins no family present poor prognosis The high probability of a clinically significant, sudden or life threatening deterioration of the [pulmonary, neuro] system(s) required my full and direct attention, intervention and personal management. The aggregate critical care time was [35] minutes. This time is in addition to time spent performing reported procedures but includes the following: [x] Data Review and interpretation [x] Patient assessment and monitoring of vital signs [x] Documentation [x] Medication orders and management History Interval history: Patient was seen and examined. Follow-up on current diagnosis of AMS. No overnight events reported to me. Imaging, nursing note, chart, labs and old chart reviewed. No family at bedside, patient opens eyes at verbal stimuli but not following any instruction Hospitalist Physical - Physical exam Narrative exam: Gen: cachetic, intubated and sedated on fentanyl drip HEENT: NCAT, pupils pinpoint Neck: supple, no adenopathy, no thyromegaly, CVS/Heart: RRR, normal S1S2, pulses present bilaterally Chest/Lungs: diminished BS, Symmetrical chest expansion, good air entry bilatera lly GI/Abdomen: soft, NTND, hypoactive, no guarding or rebound /Bladder: no suprapubic tenderness, no CVA or paraspinal tenderness Extermity/Skin: trace edema, bilateral, no cyanosis, see skin documentation for detail exam Neuro: intubated, not following commands despite no sedation Psych: intubated - Constitutional Vitals: Temp Pulse Resp BP Pulse Ox 98.7 F 120 H 20 118/76 97 12/10/18 13:34 12/10/18 12:15 12/10/18 12:15 12/10/18 12:00 12/10/18 12:00 General appearance: Present: no acute distress, other (intubated on cpap) Results - Labs CBC & Chem 7: 12/07/18 02:40 12/10/18 05:08 Labs: Laboratory Last Values WBC 7.2 K/mm3 (4.5-11.0) 12/07/18 02:40 RBC 2.78 M/mm3 (3.65-5.03) L 12/07/18 02:40 Hgb 10.2 gm/dl (11.8-15.2) L 12/07/18 02:40 Hct 31.5 % (35.5-45.6) L 12/07/18 02:40 MCV 113 fl (84-94) H 12/07/18 02:40 MCH 37 pg (28-32) H 12/07/18 02:40 MCHC 32 % (32-34) 12/07/18 02:40 RDW 16.7 % (13.2-15.2) H 12/07/18 02:40 Plt Count 57 K/mm3 (140-440) L 12/07/18 02:40 Lymph % (Auto) 7.1 % (13.4-35.0) L 12/06/18 04:02 Randolph % (Auto) 4.3 % (0.0-7.3) 12/06/18 04:02 Eos % (Auto) 0.6 % (0.0-4.3) 12/06/18 04:02 Baso % (Auto) 0.1 % (0.0-1.8) 12/06/18 04:02 Lymph # 0.4 K/mm3 (1.2-5.4) L 12/06/18 04:02 Randolph # 0.3 K/mm3 (0.0-0.8) 12/06/18 04:02 Eos # 0.0 K/mm3 (0.0-0.4) 12/06/18 04:02 Baso # 0.0 K/mm3 (0.0-0.1) 12/06/18 04:02 Add Manual Diff Complete 12/07/18 02:40 Total Counted 100 12/07/18 02:40 Seg Neutrophils % Stone Polisher Machine 12/07/18 02:40 Seg Neuts % (Manual) 99.0 % (40.0-70.0) H 12/07/18 02:40 0 % 12/07/18 02:40 1.0 % (13.4-35.0) L 12/07/18 02:40 Reactive Lymphs % (Man) 0 % 12/07/18 02:40 0 % (0.0-7.3) 12/07/18 02:40 0 % (0.0-4.3) 12/07/18 02:40 0 % (0.0-1.8) 12/07/18 02:40 0 % 12/07/18 02:40 0 % 12/07/18 02:40 0 % 12/07/18 02:40 0 % 12/07/18 02:40 Nucleated RBC % Not Reportable 12/07/18 02:40 Seg Neutrophils # 5.6 K/mm3 (1.8-7.7) 12/06/18 04:02 Seg Neutrophils # Man 7.1 K/mm3 (1.8-7.7) 12/07/18 02:40 Band Neutrophils # 0.0 K/mm3 12/07/18 02:40 0.1 K/mm3 (1.2-5.4) L 12/07/18 02:40 Abs React Lymphs (Man) 0.0 K/mm3 12/07/18 02:40 0.0 K/mm3 (0.0-0.8) 12/07/18 02:40 0.0 K/mm3 (0.0-0.4) 12/07/18 02:40 0.0 K/mm3 (0.0-0.1) 12/07/18 02:40 0.0 K/mm3 12/07/18 02:40 0.0 K/mm3 12/07/18 02:40 0.0 K/mm3 12/07/18 02:40 Blast Cells # 0.0 K/mm3 12/07/18 02:40 WBC Morphology Not Reportable 12/07/18 02:40 Hypersegmented Neuts Not Reportable 12/07/18 02:40 Hyposegmented Neuts Not Reportable 12/07/18 02:40 Hypogranular Neuts Not Reportable 12/07/18 02:40 Not Reportable 12/07/18 02:40 Not Reportable 12/07/18 02:40 Not Reportable 12/07/18 02:40 Not Reportable 12/07/18 02:40 Not Reportable 12/07/18 02:40 Not Reportable 12/07/18 02:40 Consistent w auto 12/07/18 02:40 Not Reportable 12/07/18 02:40 Plt Clumps, EDTA Not Reportable 12/07/18 02:40 Not Reportable 12/07/18 02:40 Not Reportable 12/07/18 02:40 Not Reportable 12/07/18 02:40 Plt Morphology Comment Not Reportable 12/07/18 02:40 RBC Morphology Not Reportable 12/07/18 02:40 Dimorphic RBCs Not Reportable 12/07/18 02:40 Not Reportable 12/07/18 02:40 Not Reportable 12/07/18 02:40 1+ 12/07/18 02:40 1+ 12/07/18 02:40 Not Reportable 12/07/18 02:40 1+ 12/07/18 02:40 Not Reportable 12/07/18 02:40 Not Reportable 12/07/18 02:40 Not Reportable 12/07/18 02:40 Not Reportable 12/07/18 02:40 Rare 12/07/18 02:40 Not Reportable 12/07/18 02:40 Not Reportable 12/07/18 02:40 Not Reportable 12/07/18 02:40 Not Reportable 12/07/18 02:40 Few 12/07/18 02:40 Not Reportable 12/07/18 02:40 Not Reportable 12/07/18 02:40 Few 12/07/18 02:40 Acanthocytes (Spur) Not Reportable 12/07/18 02:40 Rouleaux Not Reportable 12/07/18 02:40 Not Reportable 12/07/18 02:40 Not Reportable 12/07/18 02:40 Not Reportable 12/07/18 02:40 Not Reportable 12/07/18 02:40 Hem Pathologist Commnt No 12/07/18 02:40 PT 17.0 Sec. (12.2-14.9) H 12/04/18 08:01 INR 1.42 (0.87-1.13) H 12/04/18 08:01 APTT 36.4 Sec. (24.2-36.6) 12/04/18 08:01 POC ABG pH 7.437 (7.35-7.45) 12/04/18 03:48 ABG pH 7.440 pH Units (7.350-7.450) 12/10/18 04:40 POC ABG pCO2 39.5 (35-45) 11/29/18 14:24 ABG pCO2 34.0 mm Hg 12/10/18 04:40 POC ABG pO2 82 (80-105) 12/04/18 03:48 ABG pO2 80.8 mm Hg (80.0-90.0) 12/10/18 04:40 POC ABG HCO3 19.3 (22-26 mml/L) 12/04/18 03:48 ABG HCO3 22.6 mmol/L (20.0-26.0) 12/10/18 04:40 POC ABG Total CO2 20 (23-27mmol/L) 12/04/18 03:48 POC ABG O2 Sat 97 12/04/18 03:48 ABG O2 Saturation 96.9 % (95.0-99.0) 12/10/18 04:40 ABG O2 Content 14.2 (0.0-44) 12/10/18 04:40 POC ABG Base Excess -5 ((-2) - (+3)mmol/L) 12/04/18 03:48 ABG Base Excess -1.1 mmol/L (-2.0-3.0) 12/10/18 04:40 ABG Hemoglobin 10.6 gm/dl (14.0-18.0) L 12/10/18 04:40 ABG Carboxyhemoglobin 1.7 % (0.0-5.0) 12/10/18 04:40 ABG Methemoglobin 0.4 % (0.0-1.5) 12/10/18 04:40 VBG pH 7.186 (7.320-7.420) L* 11/29/18 13:39 94.8 % (95.0-99.0) L 12/10/18 04:40 25 % 12/10/18 04:40 Sodium 145 mmol/L (137-145) 12/10/18 05:08 Potassium 3.5 mmol/L (3.6-5.0) L 12/10/18 05:08 Chloride 111.3 mmol/L (98-107) H 12/10/18 05:08 Carbon Dioxide 23 mmol/L (22-30) 12/10/18 05:08 14 mmol/L 12/10/18 05:08 BUN 53 mg/dL (9-20) H 12/10/18 05:08 1.6 mg/dL (0.8-1.5) H 12/10/18 05:08 Estimated GFR 51 ml/min 12/10/18 05:08 33 % 12/10/18 05:08 Glucose 125 mg/dL (75-100) H 12/10/18 05:08 POC Glucose 230 (70-105) H 12/10/18 12:40 Lactic Acid 1.30 mmol/L (0.7-2.0) 11/29/18 14:42 Calcium 8.1 mg/dL (8.4-10.2) L 12/10/18 05:08 Phosphorus 2.80 mg/dL (2.5-4.5) 12/04/18 08:01 Magnesium 2.10 mg/dL (1.7-2.3) 12/04/18 08:01 Iron 20 ug/dL (49-181) L 12/04/18 08:01 TIBC 168 mcg/dL (250-450) L 12/04/18 08:01 174.3 ng/mL (13.0-400.0) 12/04/18 08:01 0.50 mg/dL (0.1-1.2) 12/04/18 08:01 AST 24 units/L (5-40) 12/04/18 08:01 ALT 32 units/L (7-56) 12/04/18 08:01 292 units/L (35-129) H 12/04/18 08:01 28.0 umol/L (25-60) 11/29/18 13:39 243 units/L (55-170) H 11/29/18 13:39 0.054 ng/mL (0.00-0.029) H 11/29/18 13:39 5.2 g/dL (6.3-8.2) L 12/04/18 08:01 2.1 g/dL (3.9-5) L 12/04/18 08:01 0.7 % 12/04/18 08:01 Triglycerides 68 mg/dL (2-149) 11/29/18 13:39 Cholesterol 95 mg/dL (50-199) 11/29/18 13:39 30 mg/dL (50-130) L 11/29/18 13:39 63 mg/dL (40-59) H 11/29/18 13:39 1.50 % 11/29/18 13:39 Vitamin B12 1798 pg/mL (211-911) H 12/05/18 03:42 7.24 ng/mL (7.3-26.0) L 12/04/18 08:01 14.8 mcg/dL () 12/01/18 09:08 Yellow (Yellow) 11/29/18 13:16 Clear (Clear) 11/29/18 13:16 5.0 (5.0-7.0) 11/29/18 13:16 Ur Specific [place] 1.018 (1.003-1.030) 11/29/18 13:16 30 mg/dl mg/dL (Negative) 11/29/18 13:16 Neg mg/dL (Negative) 11/29/18 13:16 Neg mg/dL (Negative) 11/29/18 13:16 Neg (Negative) 11/29/18 13:16 Neg (Negative) 11/29/18 13:16 Neg (Negative) 11/29/18 13:16 < 2.0 mg/dL (<2.0) 11/29/18 13:16 Ur Leukocyte Esterase Neg (Negative) 11/29/18 13:16 5.0 /HPF (0.0-6.0) 11/29/18 13:16 2.0 /HPF (0.0-6.0) 11/29/18 13:16 1+ /HPF (Negative) 11/29/18 13:16 173.8 mg/dL (0.1-20.0) H 11/30/18 14:20 18 mmol/L 11/30/18 14:20 Clear 12/02/18 Unknown Colorless 12/02/18 Unknown 2 /mm3 (1-10) 12/02/18 Unknown 1 /mm3 (0-0) 12/02/18 Unknown CSF Seg Neutrophils 50.0 % (0-6) 12/02/18 Unknown 0 % (40-80) 12/02/18 Unknown CSF Reactive Lymphs 0 % 12/02/18 Unknown 50.0 % (15-45) 12/02/18 Unknown 0 % 12/02/18 Unknown 0 % 12/02/18 Unknown C 12/02/18 Unknown 122 mg/dL 12/02/18 Unknown 22 mg/dL 12/02/18 Unknown Nonreactive (Nonreactive) 12/02/18 Unknown Random Vancomycin 10.7 ug/mL (0-40.0) 12/01/18 13:20 Salicylates < 0.3 mg/dL (2.8-20.0) L 11/29/18 13:39 Presumptive negative 11/29/18 13:16 Presumptive negative 11/29/18 13:16 Acetaminophen < 5.0 ug/mL (10.0-30.0) L 11/29/18 13:39 Ur Barbiturates Screen Presumptive negative 11/29/18 13:16 Ur Phencyclidine Scrn Presumptive negative 11/29/18 13:16 Ur Amphetamines Screen Presumptive negative 11/29/18 13:16 U Benzodiazepines Scrn Presumptive negative 11/29/18 13:16 Presumptive negative 11/29/18 13:16 U Marijuana (THC) Screen Presumptive negative 11/29/18 13:16 Disclamer 11/29/18 13:16 Non-reactive (NonReactive) 12/01/18 04:08 RPR Nonreactive (Nonreactive) 12/02/18 17:04 Hepatitis A IgM Ab Non-reactive (NonReactive) 12/02/18 17:04 Hep Bs Antigen Non-reactive (Negative) 12/02/18 17:04 Hep B Core IgM Ab Non-reactive (NonReactive) 12/02/18 17:04 Non-reactive (NonReactive) 12/02/18 17:04 Flexitest 1 12/06/18 Unknown Flexitest 1 12/06/18 Unknown Blood Type B POSITIVE 12/06/18 04:02 Antibody Screen Negative 11/29/18 13:39 Active Medications - Current Medications Current Medications: Generic Name Dose Route Start Last Admin Trade Name Freq PRN Reason Stop Dose Admin Abacavir Sulfate 600 mg 11/30/18 16:00 12/10/18 10:47 Ziagen PO Not Given DAILY KEN Albuterol 2.5 mg 11/30/18 00:17 Proventil IH Q4HRT PRN Shortness Of Breath Albuterol/Ipratropium 1 ampul 11/30/18 08:00 12/10/18 12:14 Duoneb *Not For Prn Use* IH 1 ampul QIDRT KEN Administration Lipase/Protease/Amylase 1 each 12/03/18 10:42 Pancreaze 10,500 Unit FEEDTUBE PRN PRN For Clogged Feeding Tube Docusate Sodium 100 mg 12/08/18 13:00 12/10/18 10:55 Colace PO 100 mg BID KEN Administration Famotidine 10 mg 12/04/18 11:00 12/10/18 10:55 Pepcid PO 10 mg BID KEN Administration Fentanyl 50 mcg 12/04/18 17:28 12/09/18 23:53 Sublimaze IV 50 mcg Q2H PRN Administration INCREASED AGITATION Folic Acid 1 mg 12/04/18 12:00 12/10/18 10:55 Folvite PO 1 mg QDAY KEN Administration Insulin Glargine 12 units 12/09/18 12:00 12/09/18 23:54 Lantus SUB-Q 12 units Q12H KEN Administration Insulin Human Lispro 0 unit 11/30/18 07:00 12/10/18 12:48 Humalog SUB-Q 4 unit Q6HR KEN Administration Protocol Lamivudine 150 mg 12/06/18 10:00 12/10/18 10:57 Epivir PO 150 mg DAILY KEN Administration Metoclopramide HCl 5 mg 11/30/18 00:22 Reglan IV Q6H PRN Nausea And Vomiting Ondansetron HCl 4 mg 11/30/18 00:06 Zofran IV Q8H PRN Nausea And Vomiting Raltegravir 400 mg 11/30/18 16:00 12/10/18 10:57 Isentress PO 400 mg BID KEN Administration Simple Syrup 15 ml 12/03/18 10:42 Simple Syrup FEEDTUBE PRN PRN Hypoglycemia Simple Syrup 30 ml 12/03/18 10:42 Simple Syrup FEEDTUBE PRN PRN Hypoglycemia Sodium Bicarbonate 325 mg 12/03/18 10:42 Sodium Bicarbonate FEEDTUBE PRN PRN For Clogged Feeding Tube Sodium Chloride 10 ml 11/30/18 10:00 12/10/18 12:48 Sodium Chloride Flush Syringe 10 Ml IV 10 ml BID KEN Administration Sodium Chloride 10 ml 11/30/18 00:06 Sodium Chloride Flush Syringe 10 Ml IV PRN PRN LINE FLUSH Zidovudine 300 mg 11/30/18 16:00 12/10/18 10:59 Retrovir PO 300 mg BID KEN Administration Nutrition/Malnutrition Assess - Dietary Evaluation Nutrition/Malnutrition Findings: Nutrition Notes Start: 11/30/18 08:33 Freq: Status: Active Protocol: Document 12/08/18 11:11 LM (Rec: 12/08/18 11:18 LM [email or web address]) Nutrition Notes Initial or Follow up Reassessment Current Diagnosis Acute Kidney Injury,COPD, Diabetes,Hypertension Other Pertinent Diagnosis dementia, HIV, AMS Current Diet Nepro at 50 ml/hr Labs/Tests BUN 53 Cr 1.6 BG 311 Pertinent Medications Humalog Height 6 ft 4 in Weight 84.6 kg [place] Body Weight (kg) 91.81 BMI 22.6 Subjective/Other Information Nepro running at 50 ml/hr at time of visit. Pt tolerating TF Percent of energy/protein needs met: 95%/100% Burn Absent Trauma Absent #1 Nutrition Diagnosis Inadequate oral intake Diagnosis Progress(for reassessment Continues documentation) Is patient on ventilator? Yes Is Patient Ambulatory and/or Out of Bed No REE-([place]-confined to bed) 2031.084 Kcal/Kg value to use for calculation 27 Approximate Energy Requirements Using 2284 kcal/Kg Calculation Used for Recommendations Kcal/kg Additional Notes Protein: 95-158g (1.2-2g/kg) Fluids 1 ml/kcal or per MD Nutrition Intervention Change Diet Order: Continue TF Nutrition Support: Nepro with Carbsteady at 50ml/ hr Change Flush to 200 ml q4hr hypernatremia resolved Kcal 2,160 Protein (gm) 97 Fluid (mL) 872 Goal #1 TF tolerance Goal #2 Meet at least 80% of energy and protein needs Anticipated Discharge Needs: Unable to determine at this time Follow-Up By: 12/14/18 Additional Comments F/U for TF restart/tolerance
--- NOTE | 2018-12-10 15:05 | Progress Note ---
Assessment and Plan Cultures: 11/29 BCx - NGTD 11/29 UCx - NGTD serum Crypto Ag negative Assessment: : 73 yo M PMHx HIV, HTN, HLD admitted with AMS 1. SIRS possible sepsis - hypothermia and pancytopenia on admission and negative blood cultures. Unclear source. Hypothermia resolved. Etiology ?hormonal (thyroid/Isanti's) v/s opportunistic fungi like histoplasma seen in HIV patients causing Isanti's (however last reported CD4 250) 2. Altered mental status - unclear?. HIV related? some better. Possibly due to ongoing microvascular disease with ischemia. Able to passively move neck on exam, but difficult to assess for meningismus. Continue empiric antibiotics for now with cefepime 3. HIV - Well controlled at recent visit. Accidentally ordered qualitative VL last time, but genotype was unable to be performed thus meaning the VL was at least under 1000, and most likely undetectable. CD4 ~ 250. Continue home regimen of raltegravir, lamivudine, abacavir, zidovudine. 4. CONNIE -better 5. Pancytopenia mainly Thrombocytopenia: ? HIV, worsening 6. Acute respiratory failure: intubated for airway protection. Recommendations: - Continue off antibiotics, monitor - continue ART - abacavir, raltegravir, zidovudine. increase lamivudine to full dose 300mg daily today. Will sign off. Please call if any new questions arise, or if renal function drastically changes so we can alter lamivudine dose. Belkis Alcantara MD [facility] ([facility]) M: [phone] O: [phone] F: [phone] Subjective Date of service: 12/10/18 Principal diagnosis: low plt Interval history: Intubated, eyes open but does not follow commands. Objective - Exam Narrative Exam: Physical Exam: Constitutional: Eyes open, does not follow commands. Head, Ears, Nose: Normocephalic, atraumatic. External ears, nose normal Eyes: Conjunctivae/corneas clear. No icterus. No ptosis. Neck: Supple, no meningeal signs Oral: intubated Cardiovascular: S1, S2 normal. Respiratory: Good air entry, clear to auscultation bilaterally GI: Soft, non-tender; bowel sounds normal. No peritoneal signs. Musculoskeletal: No pedal edema, no cyanosis. Skin: No rash or abscess Hem/Lymphatic: No palpable cervical or supraclavicular nodes. No lymphangitis Neurological: Intubated, non-responsive - Constitutional Vitals: Vital Signs Temp Pulse Resp BP Pulse Ox 98.7 F 131 H 36 H 132/93 100 12/10/18 13:34 12/10/18 14:00 12/10/18 14:00 12/10/18 14:00 12/10/18 14:00 Temperature -Last 24 Hours Temperature 98.7 F Temperature 98.7 F Temperature 98.5 F Temperature 98.6 F Temperature 98.7 F Temperature 98.2 F Temperature 98.7 F Temperature 98.9 F - Labs CBC & Chem 7: 12/07/18 02:40 12/10/18 05:08 Labs: Abnormal lab results 12/09/18 12/09/18 12/09/18 Range/Units 18:13 20:03 23:32 ABG Hemoglobin (14.0-18.0) gm/dl Oxyhemoglobin (95.0-99.0) % Potassium (3.6-5.0) mmol/L Chloride (98-107) mmol/L BUN (9-20) mg/dL Creatinine (0.8-1.5) mg/dL Glucose (75-100) mg/dL POC Glucose 214 H 195 H 140 H (70-105) Calcium (8.4-10.2) mg/dL 12/10/18 12/10/18 12/10/18 Range/Units 04:40 05:08 05:27 ABG Hemoglobin 10.6 L (14.0-18.0) gm/dl Oxyhemoglobin 94.8 L (95.0-99.0) % Potassium 3.5 L (3.6-5.0) mmol/L Chloride 111.3 H (98-107) mmol/L BUN 53 H (9-20) mg/dL Creatinine 1.6 H (0.8-1.5) mg/dL Glucose 125 H (75-100) mg/dL POC Glucose 133 H (70-105) Calcium 8.1 L (8.4-10.2) mg/dL 12/10/18 Range/Units 12:40 ABG Hemoglobin (14.0-18.0) gm/dl Oxyhemoglobin (95.0-99.0) % Potassium (3.6-5.0) mmol/L Chloride (98-107) mmol/L BUN (9-20) mg/dL Creatinine (0.8-1.5) mg/dL Glucose (75-100) mg/dL POC Glucose 230 H (70-105) Calcium (8.4-10.2) mg/dL
[2018-12-10] MEDS: LANTUS SUB-Q SCH (15:24)
[2018-12-10] MEDS ORDERED: EPIVIR PO ONE (18:00)
[2018-12-11] MEDS: HumaLOG SUB-Q SCH ×4 (00:06→17:28)
[2018-12-11] MEDS: LANTUS SUB-Q SCH ×3 (00:06→22:00)
[2018-12-11 07:00] LABS: Basophils % (Auto) 0.2 % (0.0-1.8); Eosinophils # (Auto) 0.1 K/mm3 (0.0-0.4); Eosinophils % (Auto) 1.5 % (0.0-4.3); Hematocrit 31.5 % (35.5-45.6); Hemoglobin 10.2 gm/dl (11.8-15.2); Lymphocytes # (Auto) 0.3 K/mm3 (1.2-5.4); Lymphocytes % (Auto) 9.4 % (13.4-35.0); Mean Corpuscular HGB Conc 32 % (32-34); Monocytes # (Auto) 0.2 K/mm3 (0.0-0.8); Monocytes % (Auto) 4.3 % (0.0-7.3); Red Blood Count 2.77 M/mm3 (3.65-5.03); Red Cell Distribution Width 17.4 % (13.2-15.2)
--- NOTE | 2018-12-11 07:14 | Hem/Onc Progress Note ---
Assessment and Plan 1. Thrombocytopenia. The patient has multiple issues, which include HIV/immunosuppression medications. 2. At this time, there is no active bleeding. 3. h/o Unresponsive. 4. Leukopenia. 5. Macrocytosis. This may be medication related. 6. History of diabetes. 7. History of hypertension. 8. History of cerebrovascular accident. 9. History of dementia. 10. Chronic obstructive pulmonary disease. 11. Renal impairment. 12. Metabolic encephalopathy. 13. h/o Intubation. Respiratory support. 14. I will follow the patient during inpatient stay. We will do deficiency investigations and follow the patient. B12 is normal. ID following for HIV s/p plt transfusion ID following for LP on folic acid - as folate was low awake - still on vent - Patient Problems (1) Thrombocytopenia Current Visit: Yes Status: Acute Subjective Date of service: 12/11/18 Principal diagnosis: low plt Interval history: awake - on stent Objective - Exam Narrative Exam: Pain - not verbal General appearance - not verbal - intubated Performance status complete dependence Eyes - no icterus ENT - no bleeding LNs cervical - not palpable Neck - no LN Respiratory Normal Breath sounds - CTA anteriorly CVS S1 S2 + Extremities no edema General GI Soft Rectal deferred male - deferred Skin warm Musculoskeletal not moving Neurologically non verbal - awake - Constitutional Vitals: Last Vital Signs Temp 99.2 F 12/11/18 03:28 Pulse 121 H 12/11/18 07:00 Resp 25 H 12/11/18 07:00 BP 115/73 12/11/18 07:00 Pulse Ox 98 12/11/18 07:00 - Labs Lab Results: Laboratory Results - last 24 hr 12/02/18 12/10/18 12/10/18 Unknown 12:40 17:34 [place] % (Auto) Eos % (Auto) [place] # Eos # Baso # Seg Neutrophils % Seg Neutrophils # POC Glucose 230 H 165 H Miscellaneous Test Flexitest 1 12/10/18 12/11/18 12/11/18 23:28 05:36 06:42 [place] % (Auto) 4.3 Eos % (Auto) 1.5 [place] # 0.2 Eos # 0.1 Baso # 0.0 Seg Neutrophils % 84.6 H Seg Neutrophils # 3.0 POC Glucose 227 H 222 H Miscellaneous Test Medications & Allergies - Medications Allergies/Adverse Reactions: Allergies No Known Allergies Allergy (Unverified 03/29/16 00:43) Home Medications: Home Medications Medication Instructions Recorded Confirmed Last Taken Type Aspirin [Aspirin BABY CHEW TAB] 81 mg PO QDAY #30 tab.chew 11/15/17 11/29/18 Unknown Rx Amlodipine Besylate 10 mg PO QDAY 05/21/18 11/29/18 Unknown History Carvedilol 6.25 mg PO BID 05/21/18 11/29/18 Unknown History Isentress 400 mg PO Q12HR 05/21/18 11/29/18 Unknown History Rosuvastatin Calcium 10 mg PO DAILY 05/21/18 11/29/18 Unknown History Memantine [Namenda] 5 mg PO QDAY #30 tablet 11/01/18 11/29/18 Unknown Rx Albuterol Sulfate [Albuterol 0.63% 0.63 mg IH TID PRN 30 Days ml 11/07/18 11/29/18 Unknown Rx NEBS] AtorvaSTATin [Lipitor] 20 mg PO QDAY #30 tablet 11/07/18 11/29/18 Unknown Rx Famotidine [Pepcid] 10 mg PO BID #60 tablet 11/07/18 11/29/18 Unknown Rx Ipratropium/Albuterol Sulfate 1 ampul IH Q6HR 30 Days ampul.neb 11/07/18 11/29/18 Unknown Rx [DUONEB *Not for PRN Use*] Tamsulosin [Flomax] 0.4 mg PO QHS #30 capsule 11/07/18 11/29/18 Unknown Rx Zidovudine 300 mg PO DAILY 11/09/18 11/29/18 Unknown History Insulin Regular, Human [HumuLIN R] 0 unit SQ AC #1 vial 11/12/18 11/29/18 Unknown Rx Active Medications: Generic Name Dose Route Start Last Admin Trade Name Freq PRN Reason Stop Dose Admin Abacavir Sulfate 600 mg 11/30/18 16:00 12/10/18 10:47 Ziagen PO Not Given DAILY KEN Albuterol 2.5 mg 11/30/18 00:17 Proventil IH Q4HRT PRN Shortness Of Breath Albuterol/Ipratropium 1 ampul 11/30/18 08:00 12/10/18 20:24 Duoneb *Not For Prn Use* IH 1 ampul QIDRT KEN Administration Lipase/Protease/Amylase 1 each 12/03/18 10:42 Pancreazmahendra Manning 10,500 Unit FEEDTUBE PRN PRN For Clogged Feeding Tube Docusate Sodium 100 mg 12/08/18 13:00 12/10/18 21:47 Colace PO 100 mg BID KEN Administration Famotidine 10 mg 12/04/18 11:00 12/10/18 10:55 Pepcid PO 10 mg BID KEN Administration Fentanyl 50 mcg 12/04/18 17:28 12/09/18 23:53 Sublimaze IV 50 mcg Q2H PRN Administration INCREASED AGITATION Folic Acid 1 mg 12/04/18 12:00 12/10/18 10:55 Folvite PO 1 mg QDAY KEN Administration Insulin Glargine 12 units 12/09/18 12:00 12/11/18 00:06 Lantus SUB-Q 12 units Q12H KEN Administration Insulin Human Lispro 0 unit 11/30/18 07:00 12/11/18 06:41 Humalog SUB-Q 4 unit Q6HR KEN Administration Protocol Lamivudine 300 mg 12/11/18 10:00 Epivir PO QDAY KEN Metoclopramide HCl 5 mg 11/30/18 00:22 Reglan IV Q6H PRN Nausea And Vomiting Ondansetron HCl 4 mg 11/30/18 00:06 Zofran IV Q8H PRN Nausea And Vomiting Raltegravir 400 mg 11/30/18 16:00 12/10/18 21:47 Isentress PO 400 mg BID KEN Administration Simple Syrup 15 ml 12/03/18 10:42 Simple Syrup FEEDTUBE PRN PRN Hypoglycemia Simple Syrup 30 ml 12/03/18 10:42 Simple Syrup FEEDTUBE PRN PRN Hypoglycemia Sodium Bicarbonate 325 mg 12/03/18 10:42 Sodium Bicarbonate FEEDTUBE PRN PRN For Clogged Feeding Tube Sodium Chloride 10 ml 11/30/18 10:00 12/10/18 21:48 Sodium Chloride Flush Syringe 10 Ml IV 10 ml BID KNE Administration Sodium Chloride 10 ml 11/30/18 00:06 Sodium Chloride Flush Syringe 10 Ml IV PRN PRN LINE FLUSH Zidovudine 300 mg 11/30/18 16:00 12/10/18 21:50 Retrovir PO 300 mg BID KEN Administration
[2018-12-11 07:15] LABS: Albumin 2.1 g/dL (3.9-5); Calcium 8.5 mg/dL (8.4-10.2)
[2018-12-11] MEDS: PEPCID PO SCH ×3 (07:38→21:29)
[2018-12-11 07:44] LABS: Mean Corpuscular Volume 114 fl (84-94); Platelet Count 67 K/mm3 (140-440)
--- NOTE | 2018-12-11 08:15 | Progress Note ---
Assessment and Plan Assessment and plan: Patient is a 73 yo man from [facility] with severe end-stage co-morbities including HIV, type 2 DM, NSTEMI type 2, hyperkalemia, hypernatremia, malnutrition, severe CHF with EF 15-20%, Dementia, CVA with SAH after fall here at [facility] on 05/22/18 with transferred to [facility], recurrent bouts of hypog lycmia, who had been admitted 3 times this month of November 2018. Initially he was admitted on 10/24/18 to 11/01/18 due to AMS, new CVA was ruled out by MRI but did show chronic infarcts in the right parietal lobe and the right MCA [employer] watershed territory and chronic lacunar infarct in the right paracentral [place] area. It was recommended that patient go to SNF but refused and took him home. He returned 2 days later due to hypoglycemia, it appears he wasn't eating enough but still taking DM medications. He was then discharged to [facility] on 11/07/2018. He returned 2 days later on 11/09/2018 due to hypoxemia and hypoglycemia again. He was discharged back to the [place] on . Now he returns to the ED on 11/29/18 with severe worsening AMS GCS of 5 requiring Intubation. I do not know why he is on Fentanyl drip. * CT head without contrast Impression: There is continued extensive microvascula r angiopathy as detailed...without CT evidence of acute ICH. * pCXR Impression: Minimal interstitial edema, ngt in stomach, needs advancing 5-10 cm, borderline cardiomegaly, no consolidation or effusion * Abd XRAY after NGT advancement, shows it is in the correct position * Prior admissions was secondary to Hypoglycemia * Neurology believes that prior stroke may be playing a part although imaging studies do not show any new stroke --Acute respiratory failure; requiring intubation more than 96 hours Vent dependent, unable to wean, pulmonary following Continue current management, patient may need trach and PEG If cannot tolerate weaning parameters --Acute metabolic encephalopathy; present on admission; multifactorial Continue supportive care --History of HIV; management per ID . --Type 2 diabetes mellitus; Accu-Chek sliding scale coverage and ADA diet and insulin --SIRS with possible sepsis: Extensively evaluated ID managed the patient, monitor off antibiotics --Acute on chronic systolic congestive heart failure: Ejection fraction 10-20%, Cardiology following Continue current anti-failure medications --Acute kidney injury; vasomotor nephropathy Avoid nephrotoxins, nephrology following --Hypernatremia; present on admission, now resolved Closely monitor electrolytes --Type 2 diabetes mellitus; Accu-Chek sliding scale coverage and ADA diet Insulin as needed --Nonspecific elevation of troponins; supportive care Cardiology following --Severe thrombocytopenia ; please secondary to underlying HIV No evidence of bleeding, closely monitor transfuse as needed --Severe malnutrition/hypoalbuminemia; nutrition supplements Nutrition consult, supportive care --DVT prophylaxis; SCDs No pharmacologic anticoagulation in view of severe thrombocytopenia --Full CODE STATUS --Poor prognosis; plan of care is reviewed with the patient's nurse and case management Monitor closely and adjust management as needed Consults and recommendations noted and appreciated No family present, we'll try to contact and discuss patient's current status Critical care time 32 minutes The high probability of a clinically significant, sudden or life threatening deterioration of the [pulm, ID, cardio, renal, hemat, metabolic and neuro] system(s) required my full and direct attention, intervention and personal management. The aggregate critical care time was [32] minutes. This time is in addition to time spent performing reported procedures but includes the following : [x] Data Review and interpretation [x] Patient assessment and monitoring of vital signs [x] Documentation [x] Medication orders and management History Interval history: Patient seen and examined in ICU, medical records reviewed Patient remains intubated on ventilatory support, unable to wean Plan to discuss with the family the patient's condition, prognosis and the goals and long-term plan of care. If patient is unable to wean, many need tracheostomy and PEG placement Patient intubated on ventilatory support Not in acute distress Vital signs reviewed Hospitalist Physical - Constitutional Vitals: Temp Pulse Resp BP Pulse Ox 99.2 F 127 H 25 H 123/67 99 12/11/18 03:28 12/11/18 08:00 12/11/18 08:00 12/11/18 08:00 12/11/18 08:00 General appearance: Present: no acute distress, well-nourished, other (intubated on vent) - EENT Eyes: Present: PERRL - Neck Neck: Present: supple, normal ROM - Respiratory Respiratory effort: normal Respiratory: bilateral: diminished, rhonchi, negative: rales, wheezing - Cardiovascular Rhythm: regular Heart Sounds: Present: S1 & S2 - Extremities Extremities: no ischemia, No edema - Abdominal General gastrointestinal: soft, non-tender, non-distended, normal bowel sounds - Integumentary Integumentary: Present: clear, warm - Psychiatric Psychiatric: other (intubated on ventilatory support) - Neurologic Neurologic: other (intubated on vent) Results - Labs CBC & Chem 7: 12/11/18 06:42 12/11/18 06:42 Labs: Laboratory Last Values WBC 3.5 K/mm3 (4.5-11.0) L 12/11/18 06:42 RBC 2.77 M/mm3 (3.65-5.03) L 12/11/18 06:42 Hgb 10.2 gm/dl (11.8-15.2) L 12/11/18 06:42 Hct 31.5 % (35.5-45.6) L 12/11/18 06:42 MCV 114 fl (84-94) H 12/11/18 06:42 MCH 37 pg (28-32) H 12/11/18 06:42 MCHC 32 % (32-34) 12/11/18 06:42 RDW 17.4 % (13.2-15.2) H 12/11/18 06:42 Plt Count 67 K/mm3 (140-440) L 12/11/18 06:42 Lymph % (Auto) 9.4 % (13.4-35.0) L 12/11/18 06:42 [place] % (Auto) 4.3 % (0.0-7.3) 12/11/18 06:42 Eos % (Auto) 1.5 % (0.0-4.3) 12/11/18 06:42 Baso % (Auto) 0.2 % (0.0-1.8) 12/11/18 06:42 Lymph # 0.3 K/mm3 (1.2-5.4) L 12/11/18 06:42 [place] # 0.2 K/mm3 (0.0-0.8) 12/11/18 06:42 Eos # 0.1 K/mm3 (0.0-0.4) 12/11/18 06:42 Baso # 0.0 K/mm3 (0.0-0.1) 12/11/18 06:42 Add Manual Diff Complete 12/07/18 02:40 Total Counted 100 12/07/18 02:40 Seg Neutrophils % 84.6 % (40.0-70.0) H 12/11/18 06:42 Seg Neuts % (Manual) 99.0 % (40.0-70.0) H 12/07/18 02:40 0 % 12/07/18 02:40 1.0 % (13.4-35.0) L 12/07/18 02:40 Reactive Lymphs % (Man) 0 % 12/07/18 02:40 0 % (0.0-7.3) 12/07/18 02:40 0 % (0.0-4.3) 12/07/18 02:40 0 % (0.0-1.8) 12/07/18 02:40 0 % 12/07/18 02:40 0 % 12/07/18 02:40 0 % 12/07/18 02:40 0 % 12/07/18 02:40 Nucleated RBC % Not Reportable 12/07/18 02:40 Seg Neutrophils # 3.0 K/mm3 (1.8-7.7) 12/11/18 06:42 Seg Neutrophils # Man 7.1 K/mm3 (1.8-7.7) 12/07/18 02:40 Band Neutrophils # 0.0 K/mm3 12/07/18 02:40 0.1 K/mm3 (1.2-5.4) L 12/07/18 02:40 Abs React Lymphs (Man) 0.0 K/mm3 12/07/18 02:40 0.0 K/mm3 (0.0-0.8) 12/07/18 02:40 0.0 K/mm3 (0.0-0.4) 12/07/18 02:40 0.0 K/mm3 (0.0-0.1) 12/07/18 02:40 0.0 K/mm3 12/07/18 02:40 0.0 K/mm3 12/07/18 02:40 0.0 K/mm3 12/07/18 02:40 Blast Cells # 0.0 K/mm3 12/07/18 02:40 WBC Morphology Not Reportable 12/07/18 02:40 Hypersegmented Neuts Not Reportable 12/07/18 02:40 Hyposegmented Neuts Not Reportable 12/07/18 02:40 Hypogranular Neuts Not Reportable 12/07/18 02:40 Not Reportable 12/07/18 02:40 Not Reportable 12/07/18 02:40 Not Reportable 12/07/18 02:40 Not Reportable 12/07/18 02:40 Not Reportable 12/07/18 02:40 Not Reportable 12/07/18 02:40 Consistent w auto 12/07/18 02:40 Not Reportable 12/07/18 02:40 Plt Clumps, EDTA Not Reportable 12/07/18 02:40 Not Reportable 12/07/18 02:40 Not Reportable 12/07/18 02:40 Not Reportable 12/07/18 02:40 Plt Morphology Comment Not Reportable 12/07/18 02:40 RBC Morphology Not Reportable 12/07/18 02:40 Dimorphic RBCs Not Reportable 12/07/18 02:40 Not Reportable 12/07/18 02:40 Not Reportable 12/07/18 02:40 1+ 12/07/18 02:40 1+ 12/07/18 02:40 Not Reportable 12/07/18 02:40 1+ 12/07/18 02:40 Not Reportable 12/07/18 02:40 Not Reportable 12/07/18 02:40 Not Reportable 12/07/18 02:40 Not Reportable 12/07/18 02:40 Rare 12/07/18 02:40 Not Reportable 12/07/18 02:40 Not Reportable 12/07/18 02:40 Not Reportable 12/07/18 02:40 Not Reportable 12/07/18 02:40 Few 12/07/18 02:40 Not Reportable 12/07/18 02:40 Not Reportable 12/07/18 02:40 Few 12/07/18 02:40 Acanthocytes (Spur) Not Reportable 12/07/18 02:40 Rouleaux Not Reportable 12/07/18 02:40 Not Reportable 12/07/18 02:40 Not Reportable 12/07/18 02:40 Not Reportable 12/07/18 02:40 Not Reportable 12/07/18 02:40 Hem Pathologist Commnt No 12/07/18 02:40 PT 17.0 Sec. (12.2-14.9) H 12/04/18 08:01 INR 1.42 (0.87-1.13) H 12/04/18 08:01 APTT 36.4 Sec. (24.2-36.6) 12/04/18 08:01 POC ABG pH 7.437 (7.35-7.45) 12/04/18 03:48 ABG pH 7.440 pH Units (7.350-7.450) 12/10/18 04:40 POC ABG pCO2 39.5 (35-45) 11/29/18 14:24 ABG pCO2 34.0 mm Hg 12/10/18 04:40 POC ABG pO2 82 (80-105) 12/04/18 03:48 ABG pO2 80.8 mm Hg (80.0-90.0) 12/10/18 04:40 POC ABG HCO3 19.3 (22-26 mml/L) 12/04/18 03:48 ABG HCO3 22.6 mmol/L (20.0-26.0) 12/10/18 04:40 POC ABG Total CO2 20 (23-27mmol/L) 12/04/18 03:48 POC ABG O2 Sat 97 12/04/18 03:48 ABG O2 Saturation 96.9 % (95.0-99.0) 12/10/18 04:40 ABG O2 Content 14.2 (0.0-44) 12/10/18 04:40 POC ABG Base Excess -5 ((-2) - (+3)mmol/L) 12/04/18 03:48 ABG Base Excess -1.1 mmol/L (-2.0-3.0) 12/10/18 04:40 ABG Hemoglobin 10.6 gm/dl (14.0-18.0) L 12/10/18 04:40 ABG Carboxyhemoglobin 1.7 % (0.0-5.0) 12/10/18 04:40 ABG Methemoglobin 0.4 % (0.0-1.5) 12/10/18 04:40 VBG pH 7.186 (7.320-7.420) L* 11/29/18 13:39 94.8 % (95.0-99.0) L 12/10/18 04:40 25 % 12/10/18 04:40 Sodium 145 mmol/L (137-145) 12/11/18 06:42 Potassium 4.1 mmol/L (3.6-5.0) 12/11/18 06:42 Chloride 111.2 mmol/L (98-107) H 12/11/18 06:42 Carbon Dioxide 22 mmol/L (22-30) 12/11/18 06:42 16 mmol/L 12/11/18 06:42 BUN 64 mg/dL (9-20) H 12/11/18 06:42 2.1 mg/dL (0.8-1.5) H 12/11/18 06:42 Estimated GFR 38 ml/min 12/11/18 06:42 30 % 12/11/18 06:42 Glucose 173 mg/dL (75-100) H 12/11/18 06:42 POC Glucose 222 (70-105) H 12/11/18 05:36 Lactic Acid 1.30 mmol/L (0.7-2.0) 11/29/18 14:42 Calcium 8.5 mg/dL (8.4-10.2) 12/11/18 06:42 Phosphorus 2.80 mg/dL (2.5-4.5) 12/04/18 08:01 Magnesium 2.10 mg/dL (1.7-2.3) 12/04/18 08:01 Iron 20 ug/dL (49-181) L 12/04/18 08:01 TIBC 168 mcg/dL (250-450) L 12/04/18 08:01 174.3 ng/mL (13.0-400.0) 12/04/18 08:01 0.30 mg/dL (0.1-1.2) 12/11/18 06:42 AST 45 units/L (5-40) H 12/11/18 06:42 ALT 35 units/L (7-56) 12/11/18 06:42 291 units/L (35-129) H 12/11/18 06:42 28.0 umol/L (25-60) 11/29/18 13:39 243 units/L (55-170) H 11/29/18 13:39 0.054 ng/mL (0.00-0.029) H 11/29/18 13:39 5.5 g/dL (6.3-8.2) L 12/11/18 06:42 2.1 g/dL (3.9-5) L 12/11/18 06:42 0.6 % 12/11/18 06:42 Triglycerides 68 mg/dL (2-149) 11/29/18 13:39 Cholesterol 95 mg/dL (50-199) 11/29/18 13:39 30 mg/dL (50-130) L 11/29/18 13:39 63 mg/dL (40-59) H 11/29/18 13:39 1.50 % 11/29/18 13:39 Vitamin B12 1798 pg/mL (211-911) H 12/05/18 03:42 7.24 ng/mL (7.3-26.0) L 12/04/18 08:01 14.8 mcg/dL () 12/01/18 09:08 Yellow (Yellow) 11/29/18 13:16 Clear (Clear) 11/29/18 13:16 5.0 (5.0-7.0) 11/29/18 13:16 Ur Specific [place] 1.018 (1.003-1.030) 11/29/18 13:16 30 mg/dl mg/dL (Negative) 11/29/18 13:16 Neg mg/dL (Negative) 11/29/18 13:16 Neg mg/dL (Negative) 11/29/18 13:16 Neg (Negative) 11/29/18 13:16 Neg (Negative) 11/29/18 13:16 Neg (Negative) 11/29/18 13:16 < 2.0 mg/dL (<2.0) 11/29/18 13:16 Ur Leukocyte Esterase Neg (Negative) 11/29/18 13:16 5.0 /HPF (0.0-6.0) 11/29/18 13:16 2.0 /HPF (0.0-6.0) 11/29/18 13:16 1+ /HPF (Negative) 11/29/18 13:16 173.8 mg/dL (0.1-20.0) H 11/30/18 14:20 18 mmol/L 11/30/18 14:20 Clear 12/02/18 Unknown Colorless 12/02/18 Unknown 2 /mm3 (1-10) 12/02/18 Unknown 1 /mm3 (0-0) 12/02/18 Unknown CSF Seg Neutrophils 50.0 % (0-6) 12/02/18 Unknown 0 % (40-80) 12/02/18 Unknown CSF Reactive Lymphs 0 % 12/02/18 Unknown 50.0 % (15-45) 12/02/18 Unknown 0 % 12/02/18 Unknown 0 % 12/02/18 Unknown C 12/02/18 Unknown 122 mg/dL 12/02/18 Unknown 22 mg/dL 12/02/18 Unknown Nonreactive (Nonreactive) 12/02/18 Unknown Random Vancomycin 10.7 ug/mL (0-40.0) 12/01/18 13:20 Salicylates < 0.3 mg/dL (2.8-20.0) L 11/29/18 13:39 Presumptive negative 11/29/18 13:16 Presumptive negative 11/29/18 13:16 Acetaminophen < 5.0 ug/mL (10.0-30.0) L 11/29/18 13:39 Ur Barbiturates Screen Presumptive negative 11/29/18 13:16 Ur Phencyclidine Scrn Presumptive negative 11/29/18 13:16 Ur Amphetamines Screen Presumptive negative 11/29/18 13:16 U Benzodiazepines Scrn Presumptive negative 11/29/18 13:16 Presumptive negative 11/29/18 13:16 U Marijuana (THC) Screen Presumptive negative 11/29/18 13:16 Disclamer 11/29/18 13:16 Non-reactive (NonReactive) 12/01/18 04:08 RPR Nonreactive (Nonreactive) 12/02/18 17:04 Hepatitis A IgM Ab Non-reactive (NonReactive) 12/02/18 17:04 Hep Bs Antigen Non-reactive (Negative) 12/02/18 17:04 Hep B Core IgM Ab Non-reactive (NonReactive) 12/02/18 17:04 Non-reactive (NonReactive) 12/02/18 17:04 Flexitest 1 12/06/18 Unknown Flexitest 1 12/06/18 Unknown Blood Type B POSITIVE 12/06/18 04:02 Antibody Screen Negative 11/29/18 13:39 Active Medications - Current Medications Current Medications: Generic Name Dose Route Start Last Admin Trade Name Freq PRN Reason Stop Dose Admin Abacavir Sulfate 600 mg 11/30/18 16:00 12/10/18 10:47 Ziagen PO Not Given DAILY KEN Albuterol 2.5 mg 11/30/18 00:17 Proventil IH Q4HRT PRN Shortness Of Breath Albuterol/Ipratropium 1 ampul 11/30/18 08:00 12/10/18 20:24 Duoneb *Not For Prn Use* IH 1 ampul QIDRT KEN Administration Lipase/Protease/Amylase 1 each 12/03/18 10:42 Pancreaze 10,500 Unit FEEDTUBE PRN PRN For Clogged Feeding Tube Docusate Sodium 100 mg 12/08/18 13:00 12/10/18 21:47 Colace PO 100 mg BID KEN Administration Famotidine 10 mg 12/04/18 11:00 12/11/18 07:38 Pepcid PO Not Given BID [facility] Fentanyl 50 mcg 12/04/18 17:28 12/09/18 23:53 Sublimaze IV 50 mcg Q2H PRN Administration INCREASED AGITATION Folic Acid 1 mg 12/04/18 12:00 12/10/18 10:55 Folvite PO 1 mg QDAY KEN Administration Insulin Glargine 12 units 12/09/18 12:00 12/11/18 00:06 Lantus SUB-Q 12 units Q12H KEN Administration Insulin Human Lispro 0 unit 11/30/18 07:00 12/11/18 06:41 Humalog SUB-Q 4 unit Q6HR KEN Administration Protocol Lamivudine 300 mg 12/11/18 10:00 Epivir PO QDAY KEN Metoclopramide HCl 5 mg 11/30/18 00:22 Reglan IV Q6H PRN Nausea And Vomiting Ondansetron HCl 4 mg 11/30/18 00:06 Zofran IV Q8H PRN Nausea And Vomiting Raltegravir 400 mg 11/30/18 16:00 12/10/18 21:47 Isentress PO 400 mg BID KEN Administration Simple Syrup 15 ml 12/03/18 10:42 Simple Syrup FEEDTUBE PRN PRN Hypoglycemia Simple Syrup 30 ml 12/03/18 10:42 Simple Syrup FEEDTUBE PRN PRN Hypoglycemia Sodium Bicarbonate 325 mg 12/03/18 10:42 Sodium Bicarbonate FEEDTUBE PRN PRN For Clogged Feeding Tube Sodium Chloride 10 ml 11/30/18 10:00 12/10/18 21:48 Sodium Chloride Flush Syringe 10 Ml IV 10 ml BID KEN Administration Sodium Chloride 10 ml 11/30/18 00:06 Sodium Chloride Flush Syringe 10 Ml IV PRN PRN LINE FLUSH Zidovudine 300 mg 11/30/18 16:00 12/10/18 21:50 Retrovir PO 300 mg BID KEN Administration Nutrition/Malnutrition Assess - Dietary Evaluation Nutrition/Malnutrition Findings: Nutrition Notes Start: 11/30/18 08:33 Freq: Status: Active Protocol: Document 12/08/18 11:11 LM (Rec: 12/08/18 11:18 LM [id number]) Nutrition Notes Initial or Follow up Reassessment Current Diagnosis Acute Kidney Injury,COPD, Diabetes,Hypertension Other Pertinent Diagnosis dementia, HIV, AMS Current Diet Nepro at 50 ml/hr Labs/Tests BUN 53 Cr 1.6 BG 311 Pertinent Medications Humalog Height 6 ft 4 in Weight 84.6 kg Weed Body Weight (kg) 91.81 BMI 22.6 Subjective/Other Information Nepro running at 50 ml/hr at time of visit. Pt tolerating TF Percent of energy/protein needs met: 95%/100% Burn Absent Trauma Absent #1 Nutrition Diagnosis Inadequate oral intake Diagnosis Progress(for reassessment Continues documentation) Is patient on ventilator? Yes Is Patient Ambulatory and/or Out of Bed No REE-([facility] [place]-confined to bed) 2031.084 Kcal/Kg value to use for calculation 27 Approximate Energy Requirements Using 2284 kcal/Kg Calculation Used for Recommendations Kcal/kg Additional Notes Protein: 95-158g (1.2-2g/kg) Fluids 1 ml/kcal or per MD Nutrition Intervention Change Diet Order: Continue TF Nutrition Support: Nepro with Carbsteady at 50ml/ hr Change Flush to 200 ml q4hr hypernatremia resolved Kcal 2,160 Protein (gm) 97 Fluid (mL) 872 Goal #1 TF tolerance Goal #2 Meet at least 80% of energy and protein needs Anticipated Discharge Needs: Unable to determine at this time Follow-Up By: 12/14/18 Additional Comments F/U for TF restart/tolerance
--- NOTE | 2018-12-11 08:57 | Progress Note ---
Assessment and Plan 1. Acute kidney injury: Vasomotor CONNIE superimposed on CKD in the setting of hypotension. Renal US negative for hydro. Increase in the creatinine level noted. Monitor renal function. Renal prognosis is guarded. Avoid nephrotoxic agents. Meds dosage based on GFR. 2. FEN: Hypokalemia, K level is better. Hypernatremia, continue free water flushes. Monitor lytes. 3. Acute hypoxic respiratory failure: Intubated on vent. 4. Acute Metabolic Encephalopathy. 5. Elevated troponin. 6. Macrocytic anemia: POA. Low Folate, continue Folic acid. 7. Type 2 DM. Subjective Date of service: 12/11/18 Principal diagnosis: low plt Interval history: Patient was seen and examined at the bedside. Objective - Vital Signs Vital signs: Vital Signs - 12hr 12/10/18 12/10/18 12/10/18 21:00 22:00 22:03 Temperature Pulse Rate 125 H 124 H 123 H Pulse Rate [ 124 H From Monitor] Respiratory 26 H 26 H 24 Rate Blood Pressure 111/68 114/76 111/68 O2 Sat by Pulse 97 97 98 Oximetry 12/10/18 12/11/18 12/11/18 23:00 00:00 00:57 Temperature 99.8 F H Pulse Rate 122 H 123 H 124 H Pulse Rate [ 124 H From Monitor] Respiratory 29 H 27 H Rate Blood Pressure 123/86 116/82 116/82 O2 Sat by Pulse 99 99 98 Oximetry 12/11/18 12/11/18 12/11/18 01:01 02:00 03:00 Temperature Pulse Rate 124 H 121 H 123 H Pulse Rate [ 124 H From Monitor] Respiratory 27 H 28 H 27 H Rate Blood Pressure 118/85 122/80 124/80 O2 Sat by Pulse 98 100 100 Oximetry 12/11/18 12/11/18 12/11/18 03:28 04:00 05:00 Temperature 99.2 F Pulse Rate 122 H 119 H Pulse Rate [ 98 H From Monitor] Respiratory 26 H 26 H Rate Blood Pressure 129/83 110/71 O2 Sat by Pulse 100 98 Oximetry 12/11/18 12/11/18 12/11/18 05:51 06:00 07:00 Temperature Pulse Rate 121 H 122 H 121 H Pulse Rate [ 98 H From Monitor] Respiratory 25 H 25 H Rate Blood Pressure 110/71 115/77 115/73 O2 Sat by Pulse 97 98 98 Oximetry 12/11/18 12/11/18 07:40 08:00 Temperature Pulse Rate 127 H Pulse Rate [ 130 H From Monitor] Respiratory 24 25 H Rate Blood Pressure 123/67 O2 Sat by Pulse 97 99 Oximetry - General Appearance General appearance: well-developed, appears stated age, intubated, other (on vent) EENT: ATNC, PERRL Neck: supple Respiratory: Present: Clear to Ascultation Cardiology: irregularly irregular, tachycardia, S1S2 Gastrointestinal: normoactive bowel sounds, no tenderness Integumentary: other (LE dressing noted) Neurologic: obtunded Musculoskeletal: other (no edema) - Lab 12/11/18 06:42 12/11/18 06:42 Most recent lab results ABG pH 7.440 pH Units (7.350-7.450) 12/10/18 04:40 ABG pCO2 34.0 mm Hg 12/10/18 04:40 ABG pO2 80.8 mm Hg (80.0-90.0) 12/10/18 04:40 ABG HCO3 22.6 mmol/L (20.0-26.0) 12/10/18 04:40 ABG O2 Saturation 96.9 % (95.0-99.0) 12/10/18 04:40 Calcium 8.5 mg/dL (8.4-10.2) 12/11/18 06:42 Phosphorus 2.80 mg/dL (2.5-4.5) 12/04/18 08:01 Magnesium 2.10 mg/dL (1.7-2.3) 12/04/18 08:01 173.8 mg/dL (0.1-20.0) H 11/30/18 14:20 18 mmol/L 11/30/18 14:20 Medications & Allergies - Medications Allergies/Adverse Reactions: Allergies No Known Allergies Allergy (Unverified 03/29/16 00:43) Home Medications: Home Medications Medication Instructions Recorded Confirmed Last Taken Type Aspirin [Aspirin BABY CHEW TAB] 81 mg PO QDAY #30 tab.chew 11/15/17 11/29/18 Unknown Rx Amlodipine Besylate 10 mg PO QDAY 05/21/18 11/29/18 Unknown History Carvedilol 6.25 mg PO BID 05/21/18 11/29/18 Unknown History Isentress 400 mg PO Q12HR 05/21/18 11/29/18 Unknown History Rosuvastatin Calcium 10 mg PO DAILY 05/21/18 11/29/18 Unknown History Memantine [Namenda] 5 mg PO QDAY #30 tablet 11/01/18 11/29/18 Unknown Rx Albuterol Sulfate [Albuterol 0.63% 0.63 mg IH TID PRN 30 Days ml 11/07/18 11/29/18 Unknown Rx NEBS] AtorvaSTATin [Lipitor] 20 mg PO QDAY #30 tablet 11/07/18 11/29/18 Unknown Rx Famotidine [Pepcid] 10 mg PO BID #60 tablet 11/07/18 11/29/18 Unknown Rx Ipratropium/Albuterol Sulfate 1 ampul IH Q6HR 30 Days ampul.neb 11/07/18 11/29/18 Unknown Rx [DUONEB *Not for PRN Use*] Tamsulosin [Flomax] 0.4 mg PO QHS #30 capsule 11/07/18 11/29/18 Unknown Rx Zidovudine 300 mg PO DAILY 11/09/18 11/29/18 Unknown History Insulin Regular, Human [HumuLIN R] 0 unit SQ AC #1 vial 11/12/18 11/29/18 Unknown Rx Active Medications: Generic Name Dose Route Start Last Admin Trade Name Freq PRN Reason Stop Dose Admin Abacavir Sulfate 600 mg 11/30/18 16:00 12/10/18 10:47 Ziagen PO Not Given DAILY KEN Albuterol 2.5 mg 11/30/18 00:17 Proventil IH Q4HRT PRN Shortness Of Breath Albuterol/Ipratropium 1 ampul 11/30/18 08:00 12/10/18 20:24 Duoneb *Not For Prn Use* IH 1 ampul QIDRT KEN Administration Lipase/Protease/Amylase 1 each 12/03/18 10:42 Harleen Manning 10,500 Unit FEEDTUBE PRN PRN For Clogged Feeding Tube Docusate Sodium 100 mg 12/08/18 13:00 12/10/18 21:47 Colace PO 100 mg BID KEN Administration Famotidine 10 mg 12/04/18 11:00 12/11/18 07:38 Pepcid PO Not Given BID KEN Fentanyl 50 mcg 12/04/18 17:28 12/09/18 23:53 Sublimaze IV 50 mcg Q2H PRN Administration INCREASED AGITATION Folic Acid 1 mg 12/04/18 12:00 12/10/18 10:55 Folvite PO 1 mg QDAY KEN Administration Insulin Glargine 12 units 12/09/18 12:00 12/11/18 00:06 Lantus SUB-Q 12 units Q12H KEN Administration Insulin Human Lispro 0 unit 11/30/18 07:00 12/11/18 06:41 Humalog SUB-Q 4 unit Q6HR KEN Administration Protocol Lamivudine 300 mg 12/11/18 10:00 Epivir PO QDAY KEN Metoclopramide HCl 5 mg 11/30/18 00:22 Reglan IV Q6H PRN Nausea And Vomiting Ondansetron HCl 4 mg 11/30/18 00:06 Zofran IV Q8H PRN Nausea And Vomiting Raltegravir 400 mg 11/30/18 16:00 12/10/18 21:47 Isentress PO 400 mg BID KEN Administration Simple Syrup 15 ml 12/03/18 10:42 Simple Syrup FEEDTUBE PRN PRN Hypoglycemia Simple Syrup 30 ml 12/03/18 10:42 Simple Syrup FEEDTUBE PRN PRN Hypoglycemia Sodium Bicarbonate 325 mg 12/03/18 10:42 Sodium Bicarbonate FEEDTUBE PRN PRN For Clogged Feeding Tube Sodium Chloride 10 ml 11/30/18 10:00 12/10/18 21:48 Sodium Chloride Flush Syringe 10 Ml IV 10 ml BID KEN Administration Sodium Chloride 10 ml 11/30/18 00:06 Sodium Chloride Flush Syringe 10 Ml IV PRN PRN LINE FLUSH Zidovudine 300 mg 11/30/18 16:00 12/10/18 21:50 Retrovir PO 300 mg BID KEN Administration
[2018-12-11] MEDS: DUONEB *Not for PRN Use IH SCH ×4 (09:02→19:50)
--- NOTE | 2018-12-11 09:04 | Progress Note ---
Assessment and Plan 73 y/o male who presents with altered mental state, hypothermia, renal failure and hypernatremia and trop leak 1. Resp-Low grade temp, remains tachypnic. Will check CXR today. Renal function is worse today, may explain change in respiratory pattern but will rule out any new underlying lung disease 2. Neuro-Unsure of baseline mental state. Still does not follow commands. 3. ID-finished treatment 4. Renal-Appears to be chronic renal failure when reviewing labs from before. Improved and stable 5. Electrolytes- Will defer to nephrology as they are following. 6. Overall prognosis is guarded to poor. Patient is likely a poor candidate for HD given other comorbid disease. Family has not been present at bedside to discuss further options but really need to have a family meeting and discuss goals of care and skilled nursing prognosis as well as need for trach CCT 31 minutes. Subjective Date of service: 12/11/18 Principal diagnosis: low plt Interval history: Patient lasted several hours on PSV but started having tachypnea and then apnea so placed back on a rate. Spoke with CM yesterday about finding family or whomever signed the patient into the facility he is currently in. Worsening renal function today. Still no family at bedside. Objective Vital Signs - 12hr 12/10/18 12/10/18 12/10/18 22:00 22:03 23:00 Temperature Pulse Rate 124 H 123 H 122 H Pulse Rate [ 124 H From Monitor] Respiratory 26 H 24 29 H Rate Blood Pressure 114/76 111/68 123/86 O2 Sat by Pulse 97 98 99 Oximetry 12/11/18 12/11/18 12/11/18 00:00 00:57 01:01 Temperature 99.8 F H Pulse Rate 123 H 124 H 124 H Pulse Rate [ 124 H From Monitor] Respiratory 27 H 27 H Rate Blood Pressure 116/82 116/82 118/85 O2 Sat by Pulse 99 98 98 Oximetry 12/11/18 12/11/18 12/11/18 02:00 03:00 03:28 Temperature 99.2 F Pulse Rate 121 H 123 H Pulse Rate [ 124 H From Monitor] Respiratory 28 H 27 H Rate Blood Pressure 122/80 124/80 O2 Sat by Pulse 100 100 Oximetry 12/11/18 12/11/18 12/11/18 04:00 05:00 05:51 Temperature Pulse Rate 122 H 119 H 121 H Pulse Rate [ 98 H From Monitor] Respiratory 26 H 26 H Rate Blood Pressure 129/83 110/71 110/71 O2 Sat by Pulse 100 98 97 Oximetry 12/11/18 12/11/18 12/11/18 06:00 07:00 07:40 Temperature Pulse Rate 122 H 121 H Pulse Rate [ 98 H 130 H From Monitor] Respiratory 25 H 25 H 24 Rate Blood Pressure 115/77 115/73 O2 Sat by Pulse 98 98 97 Oximetry 12/11/18 08:00 Temperature Pulse Rate 127 H Pulse Rate [ From Monitor] Respiratory 25 H Rate Blood Pressure 123/67 O2 Sat by Pulse 99 Oximetry Constitutional: other (critically ill on vent, awake, eyes open) Eyes: non-icteric ENT: oropharynx moist, other (intubated) Neck: supple Effort: normal Ascultation: Bilateral: clear, diminished breath sounds, rhonchi Percussion: Bilateral: not dull Cardiovascular: other (tachy, RR; no mrg) Gastrointestinal: normoactive bowel sounds, soft, non-tender, non-distended Extremities: no cyanosis, no edema, pink and warm Neurologic: other (eyes open, not following commands for me) Psychiatric: other (unable to assess) CBC and BMP: 12/11/18 06:42 12/11/18 06:42 ABG, PT/INR, D-dimer: ABG POC ABG pH 7.437 (7.35-7.45) 12/04/18 03:48 ABG pH 7.440 pH Units (7.350-7.450) 12/10/18 04:40 ABG pCO2 34.0 mm Hg 12/10/18 04:40 POC ABG pO2 82 (80-105) 12/04/18 03:48 ABG pO2 80.8 mm Hg (80.0-90.0) 12/10/18 04:40 POC ABG HCO3 19.3 (22-26 mml/L) 12/04/18 03:48 POC ABG Total CO2 20 (23-27mmol/L) 12/04/18 03:48 POC ABG O2 Sat 97 12/04/18 03:48 ABG O2 Saturation 96.9 % (95.0-99.0) 12/10/18 04:40 PT/INR, D-dimer PT 17.0 Sec. (12.2-14.9) H 12/04/18 08:01 INR 1.42 (0.87-1.13) H 12/04/18 08:01 Abnormal lab findings: Abnormal Labs 11/29/18 11/29/18 11/29/18 13:07 13:39 13:39 WBC 3.2 L RBC 2.76 L Hgb 10.4 L Hct 32.1 L MCV 116 H MCH 38 H RDW 17.5 H Plt Count 48 L Lymph % (Auto) 5.4 L Lymph # 0.2 L Seg Neutrophils % 89.5 H Seg Neuts % (Manual) Lymphocytes % (Manual) Lymphocytes # (Manual) PT INR POC ABG pH POC ABG pO2 ABG pO2 ABG HCO3 ABG O2 Saturation ABG Base Excess ABG Hemoglobin VBG pH Oxyhemoglobin Sodium 153 H Potassium Chloride 113.3 H Carbon Dioxide 21 L BUN 55 H Creatinine 2.4 H Glucose 260 H POC Glucose 289 H Calcium Iron TIBC AST 68 H Alkaline Phosphatase 239 H Total Creatine Kinase 243 H Troponin T 0.054 H Total Protein 5.8 L Albumin 3.0 L LDL Cholesterol Direct 30 L HDL Cholesterol 63 H Vitamin B12 Folate Urine Creatinine Salicylates Acetaminophen 11/29/18 11/29/18 11/29/18 13:39 13:39 13:39 WBC RBC Hgb Hct MCV MCH RDW Plt Count Lymph % (Auto) Lymph # Seg Neutrophils % Seg Neuts % (Manual) Lymphocytes % (Manual) Lymphocytes # (Manual) PT INR POC ABG pH POC ABG pO2 ABG pO2 ABG HCO3 ABG O2 Saturation ABG Base Excess ABG Hemoglobin VBG pH 7.186 L* Oxyhemoglobin Sodium Potassium Chloride Carbon Dioxide BUN Creatinine Glucose POC Glucose Calcium Iron TIBC AST Alkaline Phosphatase Total Creatine Kinase Troponin T Total Protein Albumin LDL Cholesterol Direct HDL Cholesterol Vitamin B12 Folate Urine Creatinine Salicylates < 0.3 L Acetaminophen < 5.0 L 11/29/18 11/29/18 11/30/18 14:24 21:17 05:50 WBC RBC Hgb Hct MCV MCH RDW Plt Count Lymph % (Auto) Lymph # Seg Neutrophils % Seg Neuts % (Manual) Lymphocytes % (Manual) Lymphocytes # (Manual) PT INR POC ABG pH 7.319 L POC ABG pO2 126 H ABG pO2 203.3 H ABG HCO3 18.5 L ABG O2 Saturation 99.3 H ABG Base Excess -6.2 L ABG Hemoglobin 10.9 L VBG pH Oxyhemoglobin Sodium Potassium Chloride Carbon Dioxide BUN Creatinine Glucose POC Glucose 242 H Calcium Iron TIBC AST Alkaline Phosphatase Total Creatine Kinase Troponin T Total Protein Albumin LDL Cholesterol Direct HDL Cholesterol Vitamin B12 Folate Urine Creatinine Salicylates Acetaminophen 11/30/18 11/30/18 11/30/18 08:52 10:31 10:58 WBC RBC 3.05 L Hgb 11.5 L Hct 35.3 L MCV 116 H MCH 38 H RDW 17.2 H Plt Count 43 L Lymph % (Auto) Lymph # Seg Neutrophils % Seg Neuts % (Manual) Lymphocytes % (Manual) Lymphocytes # (Manual) PT INR POC ABG pH POC ABG pO2 ABG pO2 ABG HCO3 ABG O2 Saturation ABG Base Excess ABG Hemoglobin VBG pH Oxyhemoglobin Sodium 153 H Potassium Chloride 117.2 H Carbon Dioxide 18 L BUN 60 H Creatinine 2.8 H Glucose 216 H POC Glucose 234 H Calcium 8.2 L Iron TIBC AST Alkaline Phosphatase Total Creatine Kinase Troponin T Total Protein Albumin LDL Cholesterol Direct HDL Cholesterol Vitamin B12 Folate Urine Creatinine Salicylates Acetaminophen 11/30/18 11/30/18 11/30/18 12:40 14:20 17:35 WBC RBC Hgb Hct MCV MCH RDW Plt Count Lymph % (Auto) Lymph # Seg Neutrophils % Seg Neuts % (Manual) Lymphocytes % (Manual) Lymphocytes # (Manual) PT INR POC ABG pH POC ABG pO2 ABG pO2 ABG HCO3 ABG O2 Saturation ABG Base Excess ABG Hemoglobin VBG pH Oxyhemoglobin Sodium Potassium Chloride Carbon Dioxide BUN Creatinine Glucose POC Glucose 235 H 182 H Calcium Iron TIBC AST Alkaline Phosphatase Total Creatine Kinase Troponin T Total Protein Albumin LDL Cholesterol Direct HDL Cholesterol Vitamin B12 Folate Urine Creatinine 173.8 H Salicylates Acetaminophen 11/30/18 12/01/18 12/01/18 23:53 04:08 04:08 WBC RBC 3.11 L Hgb 11.7 L Hct 35.3 L MCV 113 H MCH 38 H RDW 16.9 H Plt Count 43 L Lymph % (Auto) Lymph # Seg Neutrophils % Seg Neuts % (Manual) Lymphocytes % (Manual) Lymphocytes # (Manual) PT INR POC ABG pH POC ABG pO2 ABG pO2 ABG HCO3 ABG O2 Saturation ABG Base Excess ABG Hemoglobin VBG pH Oxyhemoglobin Sodium 150 H Potassium Chloride 114.6 H Carbon Dioxide 16 L BUN 67 H Creatinine 2.9 H Glucose 193 H POC Glucose 149 H Calcium 8.2 L Iron TIBC AST Alkaline Phosphatase Total Creatine Kinase Troponin T Total Protein Albumin LDL Cholesterol Direct HDL Cholesterol Vitamin B12 Folate Urine Creatinine Salicylates Acetaminophen 12/01/18 12/01/18 12/01/18 04:55 05:11 13:33 WBC RBC Hgb Hct MCV MCH RDW Plt Count Lymph % (Auto) Lymph # Seg Neutrophils % Seg Neuts % (Manual) Lymphocytes % (Manual) Lymphocytes # (Manual) PT INR POC ABG pH POC ABG pO2 ABG pO2 91.9 H ABG HCO3 17.7 L ABG O2 Saturation ABG Base Excess -6.1 L ABG Hemoglobin 11.5 L VBG pH Oxyhemoglobin Sodium Potassium Chloride Carbon Dioxide BUN Creatinine Glucose POC Glucose 236 H 255 H Calcium Iron TIBC AST Alkaline Phosphatase Total Creatine Kinase Troponin T Total Protein Albumin LDL Cholesterol Direct HDL Cholesterol Vitamin B12 Folate Urine Creatinine Salicylates Acetaminophen 12/01/18 12/02/18 12/02/18 18:20 00:17 03:40 WBC RBC Hgb Hct MCV MCH RDW Plt Count Lymph % (Auto) Lymph # Seg Neutrophils % Seg Neuts % (Manual) Lymphocytes % (Manual) Lymphocytes # (Manual) PT INR POC ABG pH POC ABG pO2 ABG pO2 78.0 L ABG HCO3 16.4 L ABG O2 Saturation ABG Base Excess -6.2 L ABG Hemoglobin 11.4 L VBG pH Oxyhemoglobin 94.5 L Sodium Potassium Chloride Carbon Dioxide BUN Creatinine Glucose POC Glucose 177 H 192 H Calcium Iron TIBC AST Alkaline Phosphatase Total Creatine Kinase Troponin T Total Protein Albumin LDL Cholesterol Direct HDL Cholesterol Vitamin B12 Folate Urine Creatinine Salicylates Acetaminophen 12/02/18 12/02/18 12/02/18 05:11 05:26 07:50 WBC 4.1 L RBC 3.01 L Hgb 11.4 L Hct 34.1 L MCV 113 H MCH 38 H RDW 17.3 H Plt Count 40 L Lymph % (Auto) Lymph # Seg Neutrophils % Seg Neuts % (Manual) Lymphocytes % (Manual) Lymphocytes # (Manual) PT INR POC ABG pH POC ABG pO2 ABG pO2 ABG HCO3 ABG O2 Saturation ABG Base Excess ABG Hemoglobin VBG pH Oxyhemoglobin Sodium Potassium 5.6 H D Chloride 113.0 H Carbon Dioxide 16 L BUN 73 H Creatinine 2.8 H Glucose 202 H POC Glucose 179 H Calcium Iron TIBC AST Alkaline Phosphatase Total Creatine Kinase Troponin T Total Protein Albumin LDL Cholesterol Direct HDL Cholesterol Vitamin B12 Folate Urine Creatinine Salicylates Acetaminophen 12/02/18 12/02/18 12/02/18 11:57 18:40 18:43 WBC RBC Hgb Hct MCV MCH RDW Plt Count Lymph % (Auto) Lymph # Seg Neutrophils % Seg Neuts % (Manual) Lymphocytes % (Manual) Lymphocytes # (Manual) PT INR POC ABG pH POC ABG pO2 ABG pO2 ABG HCO3 ABG O2 Saturation ABG Base Excess ABG Hemoglobin VBG pH Oxyhemoglobin Sodium Potassium Chloride Carbon Dioxide BUN Creatinine Glucose POC Glucose 140 H 286 H 261 H Calcium Iron TIBC AST Alkaline Phosphatase Total Creatine Kinase Troponin T Total Protein Albumin LDL Cholesterol Direct HDL Cholesterol Vitamin B12 Folate Urine Creatinine Salicylates Acetaminophen 12/02/18 12/03/18 12/03/18 23:55 04:06 04:06 WBC 4.4 L RBC 2.96 L Hgb 11.3 L Hct 33.1 L MCV 112 H MCH 38 H RDW 16.7 H Plt Count 38 L Lymph % (Auto) Lymph # Seg Neutrophils % Seg Neuts % (Manual) Lymphocytes % (Manual) Lymphocytes # (Manual) PT INR POC ABG pH POC ABG pO2 ABG pO2 ABG HCO3 ABG O2 Saturation ABG Base Excess ABG Hemoglobin VBG pH Oxyhemoglobin Sodium 146 H Potassium Chloride 112.5 H Carbon Dioxide 18 L BUN 71 H Creatinine 2.5 H Glucose 258 H POC Glucose 303 H Calcium 8.3 L Iron TIBC AST Alkaline Phosphatase Total Creatine Kinase Troponin T Total Protein Albumin LDL Cholesterol Direct HDL Cholesterol Vitamin B12 Folate Urine Creatinine Salicylates Acetaminophen 12/03/18 12/03/18 12/03/18 05:17 11:25 17:46 WBC RBC Hgb Hct MCV MCH RDW Plt Count Lymph % (Auto) Lymph # Seg Neutrophils % Seg Neuts % (Manual) Lymphocytes % (Manual) Lymphocytes # (Manual) PT INR POC ABG pH POC ABG pO2 ABG pO2 ABG HCO3 ABG O2 Saturation ABG Base Excess ABG Hemoglobin VBG pH Oxyhemoglobin Sodium Potassium Chloride Carbon Dioxide BUN Creatinine Glucose POC Glucose 328 H 288 H 202 H Calcium Iron TIBC AST Alkaline Phosphatase Total Creatine Kinase Troponin T Total Protein Albumin LDL Cholesterol Direct HDL Cholesterol Vitamin B12 Folate Urine Creatinine Salicylates Acetaminophen 12/04/18 12/04/18 12/04/18 01:15 05:47 08:01 WBC RBC 3.11 L Hgb 11.7 L Hct MCV 115 H MCH 38 H RDW 17.6 H Plt Count 35 L Lymph % (Auto) 6.9 L Lymph # 0.3 L Seg Neutrophils % 87.7 H Seg Neuts % (Manual) Lymphocytes % (Manual) Lymphocytes # (Manual) PT INR POC ABG pH POC ABG pO2 ABG pO2 ABG HCO3 ABG O2 Saturation ABG Base Excess ABG Hemoglobin VBG pH Oxyhemoglobin Sodium Potassium Chloride Carbon Dioxide BUN Creatinine Glucose POC Glucose 282 H 265 H Calcium Iron TIBC AST Alkaline Phosphatase Total Creatine Kinase Troponin T Total Protein Albumin LDL Cholesterol Direct HDL Cholesterol Vitamin B12 Folate Urine Creatinine Salicylates Acetaminophen 12/04/18 12/04/18 12/04/18 08:01 08:01 08:01 WBC RBC Hgb Hct MCV MCH RDW Plt Count Lymph % (Auto) Lymph # Seg Neutrophils % Seg Neuts % (Manual) Lymphocytes % (Manual) Lymphocytes # (Manual) PT 17.0 H INR 1.42 H POC ABG pH POC ABG pO2 ABG pO2 ABG HCO3 ABG O2 Saturation ABG Base Excess ABG Hemoglobin VBG pH Oxyhemoglobin Sodium Potassium Chloride 114.6 H Carbon Dioxide 20 L BUN 62 H Creatinine 2.0 H Glucose 266 H POC Glucose Calcium 8.3 L Iron 20 L TIBC 168 L AST Alkaline Phosphatase 292 H Total Creatine Kinase Troponin T Total Protein 5.2 L Albumin 2.1 L LDL Cholesterol Direct HDL Cholesterol Vitamin B12 Folate 7.24 L Urine Creatinine Salicylates Acetaminophen 12/04/18 12/04/18 12/04/18 11:59 17:59 22:59 WBC RBC Hgb Hct MCV MCH RDW Plt Count Lymph % (Auto) Lymph # Seg Neutrophils % Seg Neuts % (Manual) Lymphocytes % (Manual) Lymphocytes # (Manual) PT INR POC ABG pH POC ABG pO2 ABG pO2 ABG HCO3 ABG O2 Saturation ABG Base Excess ABG Hemoglobin VBG pH Oxyhemoglobin Sodium Potassium Chloride Carbon Dioxide BUN Creatinine Glucose POC Glucose 267 H 226 H 341 H Calcium Iron TIBC AST Alkaline Phosphatase Total Creatine Kinase Troponin T Total Protein Albumin LDL Cholesterol Direct HDL Cholesterol Vitamin B12 Folate Urine Creatinine Salicylates Acetaminophen 12/05/18 12/05/18 12/05/18 03:42 03:42 03:42 WBC RBC 2.89 L Hgb 10.8 L Hct 32.2 L MCV 111 H MCH 37 H RDW 16.8 H Plt Count 47 L Lymph % (Auto) 5.5 L Lymph # 0.3 L Seg Neutrophils % 89.9 H Seg Neuts % (Manual) Lymphocytes % (Manual) Lymphocytes # (Manual) PT INR POC ABG pH POC ABG pO2 ABG pO2 ABG HCO3 ABG O2 Saturation ABG Base Excess ABG Hemoglobin VBG pH Oxyhemoglobin Sodium 146 H Potassium Chloride 113.3 H Carbon Dioxide 19 L BUN 55 H Creatinine 1.8 H Glucose 268 H POC Glucose Calcium 8.3 L Iron TIBC AST Alkaline Phosphatase Total Creatine Kinase Troponin T Total Protein Albumin LDL Cholesterol Direct HDL Cholesterol Vitamin B12 1798 H Folate Urine Creatinine Salicylates Acetaminophen 12/05/18 12/05/18 12/05/18 04:14 18:38 23:59 WBC RBC Hgb Hct MCV MCH RDW Plt Count Lymph % (Auto) Lymph # Seg Neutrophils % Seg Neuts % (Manual) Lymphocytes % (Manual) Lymphocytes # (Manual) PT INR POC ABG pH POC ABG pO2 ABG pO2 75.1 L ABG HCO3 ABG O2 Saturation ABG Base Excess -4.0 L ABG Hemoglobin 8.2 L VBG pH Oxyhemoglobin 94.0 L Sodium Potassium Chloride Carbon Dioxide BUN Creatinine Glucose POC Glucose 150 H 215 H Calcium Iron TIBC AST Alkaline Phosphatase Total Creatine Kinase Troponin T Total Protein Albumin LDL Cholesterol Direct HDL Cholesterol Vitamin B12 Folate Urine Creatinine Salicylates Acetaminophen 12/06/18 12/06/18 12/06/18 04:02 04:02 04:44 WBC RBC 2.88 L Hgb 10.6 L Hct 32.8 L MCV 114 H MCH 37 H RDW 17.3 H Plt Count 59 L Lymph % (Auto) 7.1 L Lymph # 0.4 L Seg Neutrophils % 87.9 H Seg Neuts % (Manual) Lymphocytes % (Manual) Lymphocytes # (Manual) PT INR POC ABG pH POC ABG pO2 ABG pO2 ABG HCO3 ABG O2 Saturation ABG Base Excess -2.7 L ABG Hemoglobin 10.5 L VBG pH Oxyhemoglobin 94.7 L Sodium 146 H Potassium Chloride 111.9 H Carbon Dioxide 21 L BUN 52 H Creatinine 1.7 H Glucose 254 H POC Glucose Calcium 8.3 L Iron TIBC AST Alkaline Phosphatase Total Creatine Kinase Troponin T Total Protein Albumin LDL Cholesterol Direct HDL Cholesterol Vitamin B12 Folate Urine Creatinine Salicylates Acetaminophen 12/06/18 12/06/18 12/06/18 05:59 12:08 17:52 WBC RBC Hgb Hct MCV MCH RDW Plt Count Lymph % (Auto) Lymph # Seg Neutrophils % Seg Neuts % (Manual) Lymphocytes % (Manual) Lymphocytes # (Manual) PT INR POC ABG pH POC ABG pO2 ABG pO2 ABG HCO3 ABG O2 Saturation ABG Base Excess ABG Hemoglobin VBG pH Oxyhemoglobin Sodium Potassium Chloride Carbon Dioxide BUN Creatinine Glucose POC Glucose 270 H 119 H 158 H Calcium Iron TIBC AST Alkaline Phosphatase Total Creatine Kinase Troponin T Total Protein Albumin LDL Cholesterol Direct HDL Cholesterol Vitamin B12 Folate Urine Creatinine Salicylates Acetaminophen 12/07/18 12/07/18 12/07/18 00:00 02:40 02:40 WBC RBC 2.78 L Hgb 10.2 L Hct 31.5 L MCV 113 H MCH 37 H RDW 16.7 H Plt Count 57 L Lymph % (Auto) Lymph # Seg Neutrophils % Seg Neuts % (Manual) 99.0 H Lymphocytes % (Manual) 1.0 L Lymphocytes # (Manual) 0.1 L PT INR POC ABG pH POC ABG pO2 ABG pO2 ABG HCO3 ABG O2 Saturation ABG Base Excess ABG Hemoglobin VBG pH Oxyhemoglobin Sodium 147 H Potassium 3.4 L Chloride 111.6 H Carbon Dioxide 19 L BUN 50 H Creatinine 1.6 H Glucose 243 H POC Glucose 203 H Calcium Iron TIBC AST Alkaline Phosphatase Total Creatine Kinase Troponin T Total Protein Albumin LDL Cholesterol Direct HDL Cholesterol Vitamin B12 Folate Urine Creatinine Salicylates Acetaminophen 12/07/18 12/07/18 12/07/18 05:27 11:49 17:30 WBC RBC Hgb Hct MCV MCH RDW Plt Count Lymph % (Auto) Lymph # Seg Neutrophils % Seg Neuts % (Manual) Lymphocytes % (Manual) Lymphocytes # (Manual) PT INR POC ABG pH POC ABG pO2 ABG pO2 ABG HCO3 ABG O2 Saturation ABG Base Excess ABG Hemoglobin VBG pH Oxyhemoglobin Sodium Potassium Chloride Carbon Dioxide BUN Creatinine Glucose POC Glucose 299 H 249 H 205 H Calcium Iron TIBC AST Alkaline Phosphatase Total Creatine Kinase Troponin T Total Protein Albumin LDL Cholesterol Direct HDL Cholesterol Vitamin B12 Folate Urine Creatinine Salicylates Acetaminophen 12/08/18 12/08/18 12/08/18 00:09 03:43 05:09 WBC RBC Hgb Hct MCV MCH RDW Plt Count Lymph % (Auto) Lymph # Seg Neutrophils % Seg Neuts % (Manual) Lymphocytes % (Manual) Lymphocytes # (Manual) PT INR POC ABG pH POC ABG pO2 ABG pO2 ABG HCO3 ABG O2 Saturation ABG Base Excess ABG Hemoglobin VBG pH Oxyhemoglobin Sodium Potassium Chloride 110.9 H Carbon Dioxide 21 L BUN 53 H Creatinine 1.6 H Glucose 311 H POC Glucose 312 H 363 H Calcium Iron TIBC AST Alkaline Phosphatase Total Creatine Kinase Troponin T Total Protein Albumin LDL Cholesterol Direct HDL Cholesterol Vitamin B12 Folate Urine Creatinine Salicylates Acetaminophen 12/08/18 12/08/18 12/08/18 07:35 12:18 17:51 WBC RBC Hgb Hct MCV MCH RDW Plt Count Lymph % (Auto) Lymph # Seg Neutrophils % Seg Neuts % (Manual) Lymphocytes % (Manual) Lymphocytes # (Manual) PT INR POC ABG pH POC ABG pO2 ABG pO2 ABG HCO3 ABG O2 Saturation ABG Base Excess ABG Hemoglobin VBG pH Oxyhemoglobin Sodium Potassium Chloride Carbon Dioxide BUN Creatinine Glucose POC Glucose 347 H 332 H 198 H Calcium Iron TIBC AST Alkaline Phosphatase Total Creatine Kinase Troponin T Total Protein Albumin LDL Cholesterol Direct HDL Cholesterol Vitamin B12 Folate Urine Creatinine Salicylates Acetaminophen 12/08/18 12/09/18 12/09/18 23:42 04:38 05:33 WBC RBC Hgb Hct MCV MCH RDW Plt Count Lymph % (Auto) Lymph # Seg Neutrophils % Seg Neuts % (Manual) Lymphocytes % (Manual) Lymphocytes # (Manual) PT INR POC ABG pH POC ABG pO2 ABG pO2 ABG HCO3 ABG O2 Saturation ABG Base Excess ABG Hemoglobin VBG pH Oxyhemoglobin Sodium Potassium Chloride 111.5 H Carbon Dioxide BUN 55 H Creatinine 1.7 H Glucose 246 H POC Glucose 226 H 271 H Calcium 8.2 L Iron TIBC AST Alkaline Phosphatase Total Creatine Kinase Troponin T Total Protein Albumin LDL Cholesterol Direct HDL Cholesterol Vitamin B12 Folate Urine Creatinine Salicylates Acetaminophen 12/09/18 12/09/18 12/09/18 12:08 18:13 20:03 WBC RBC Hgb Hct MCV MCH RDW Plt Count Lymph % (Auto) Lymph # Seg Neutrophils % Seg Neuts % (Manual) Lymphocytes % (Manual) Lymphocytes # (Manual) PT INR POC ABG pH POC ABG pO2 ABG pO2 ABG HCO3 ABG O2 Saturation ABG Base Excess ABG Hemoglobin VBG pH Oxyhemoglobin Sodium Potassium Chloride Carbon Dioxide BUN Creatinine Glucose POC Glucose 255 H 214 H 195 H Calcium Iron TIBC AST Alkaline Phosphatase Total Creatine Kinase Troponin T Total Protein Albumin LDL Cholesterol Direct HDL Cholesterol Vitamin B12 Folate Urine Creatinine Salicylates Acetaminophen 12/09/18 12/10/18 12/10/18 23:32 04:40 05:08 WBC RBC Hgb Hct MCV MCH RDW Plt Count Lymph % (Auto) Lymph # Seg Neutrophils % Seg Neuts % (Manual) Lymphocytes % (Manual) Lymphocytes # (Manual) PT INR POC ABG pH POC ABG pO2 ABG pO2 ABG HCO3 ABG O2 Saturation ABG Base Excess ABG Hemoglobin 10.6 L VBG pH Oxyhemoglobin 94.8 L Sodium Potassium 3.5 L Chloride 111.3 H Carbon Dioxide BUN 53 H Creatinine 1.6 H Glucose 125 H POC Glucose 140 H Calcium 8.1 L Iron TIBC AST Alkaline Phosphatase Total Creatine Kinase Troponin T Total Protein Albumin LDL Cholesterol Direct HDL Cholesterol Vitamin B12 Folate Urine Creatinine Salicylates Acetaminophen 12/10/18 12/10/18 12/10/18 05:27 12:40 17:34 WBC RBC Hgb Hct MCV MCH RDW Plt Count Lymph % (Auto) Lymph # Seg Neutrophils % Seg Neuts % (Manual) Lymphocytes % (Manual) Lymphocytes # (Manual) PT INR POC ABG pH POC ABG pO2 ABG pO2 ABG HCO3 ABG O2 Saturation ABG Base Excess ABG Hemoglobin VBG pH Oxyhemoglobin Sodium Potassium Chloride Carbon Dioxide BUN Creatinine Glucose POC Glucose 133 H 230 H 165 H Calcium Iron TIBC AST Alkaline Phosphatase Total Creatine Kinase Troponin T Total Protein Albumin LDL Cholesterol Direct HDL Cholesterol Vitamin B12 Folate Urine Creatinine Salicylates Acetaminophen 12/10/18 12/11/18 12/11/18 23:28 05:36 06:42 WBC 3.5 L RBC 2.77 L Hgb 10.2 L Hct 31.5 L MCV 114 H MCH 37 H RDW 17.4 H Plt Count 67 L Lymph % (Auto) 9.4 L Lymph # 0.3 L Seg Neutrophils % 84.6 H Seg Neuts % (Manual) Lymphocytes % (Manual) Lymphocytes # (Manual) PT INR POC ABG pH POC ABG pO2 ABG pO2 ABG HCO3 ABG O2 Saturation ABG Base Excess ABG Hemoglobin VBG pH Oxyhemoglobin Sodium Potassium Chloride Carbon Dioxide BUN Creatinine Glucose POC Glucose 227 H 222 H Calcium Iron TIBC AST Alkaline Phosphatase Total Creatine Kinase Troponin T Total Protein Albumin LDL Cholesterol Direct HDL Cholesterol Vitamin B12 Folate Urine Creatinine Salicylates Acetaminophen 12/11/18 06:42 WBC RBC Hgb Hct MCV MCH RDW Plt Count Lymph % (Auto) Lymph # Seg Neutrophils % Seg Neuts % (Manual) Lymphocytes % (Manual) Lymphocytes # (Manual) PT INR POC ABG pH POC ABG pO2 ABG pO2 ABG HCO3 ABG O2 Saturation ABG Base Excess ABG Hemoglobin VBG pH Oxyhemoglobin Sodium Potassium Chloride 111.2 H Carbon Dioxide BUN 64 H Creatinine 2.1 H Glucose 173 H POC Glucose Calcium Iron TIBC AST 45 H Alkaline Phosphatase 291 H Total Creatine Kinase Troponin T Total Protein 5.5 L Albumin 2.1 L LDL Cholesterol Direct HDL Cholesterol Vitamin B12 Folate Urine Creatinine Salicylates Acetaminophen
[2018-12-11] MEDS: FOLVITE PO SCH (09:20)
[2018-12-11] MEDS: ISENTRESS PO SCH ×2 (09:20→21:29)
[2018-12-11] MEDS: COLACE PO SCH ×2 (09:21→21:27)
[2018-12-11] MEDS: EPIVIR PO SCH (09:25)
[2018-12-11] MEDS: RETROVIR PO SCH ×2 (09:26→21:32)
[2018-12-11] MEDS: ZIAGEN PO SCH ×2 (09:26→10:57)
[2018-12-11] MEDS: SODIUM CHLORIDE FLUSH SYRINGE 10 ML IV SCH ×2 (09:26→22:10)
--- NOTE | 2018-12-11 09:41 | XRay Report ---
CHEST 1 VIEW INDICATION: Tachypnea and hypoxemia with low grade temp. COMPARISON: 11/29/2018 FINDINGS: Support devices: The endotracheal tube and nasogastric tube remain in adequate position. Heart: Within normal limits. Lungs/Pleura: There is mild central pulmonary venous congestion which has decreased by 50% since the previous exam. Hazy opacity now obscures the left hemidiaphragm which could represent atelectasis or layering pleural effusion. No consolidation or pneumothorax. Additional findings: None. IMPRESSION: Improvement in vascular congestion. Hazy opacity has developed at the left lung base most consistent with dependent atelectasis. Small left pleural effusion could be considered. Signer Name: Andrea Yanez Jr, MD Signed: 12/11/2018 9:37 AM Workstation Name: [id number]
--- NOTE | 2018-12-11 10:42 | Event Note ---
Date: 12/11/18 Called son Magali Kendrick (appears he is the second or jr) at [phone]. He did not answer but I left a voicemail with my name and the ICU phone number for him to call back. Looking to set up a meeting with him in person, or if not possible discuss over the phone with CM next steps given mental status is not improving and patient continues to fail PSV trials. If aggressive care is requested, next steps would be trach and peg. Hopeful to speak with the son soon.
--- NOTE | 2018-12-11 11:03 | Progress Note ---
Assessment and Plan Altered mental status Respiratory failure Thrombocytopenia Hx of CVA Non-specific troponin Cardiomyopathy, EF 15-20% Moderate to severe MR and TR Renal failure HIV Conservative cardiac management. Subjective Date of service: 12/11/18 Principal diagnosis: low plt Interval history: No cardiac events overnight. Objective Vital Signs Temp Pulse Pulse Pulse Resp Resp BP 12/11/18 10:00 114 H 21 96/59 12/11/18 09:06 119 H 95/57 12/11/18 09:05 121 H 25 H 12/11/18 09:01 120 H 21 93/57 12/11/18 08:00 98.6 F 127 H 25 H 123/67 12/11/18 07:40 130 H 24 12/11/18 07:00 121 H 25 H 115/73 12/11/18 06:00 122 H 98 H 25 H 115/77 12/11/18 05:51 121 H 110/71 12/11/18 05:00 119 H 26 H 110/71 12/11/18 04:00 122 H 98 H 26 H 129/83 12/11/18 03:28 99.2 F 12/11/18 03:00 123 H 27 H 124/80 12/11/18 02:00 121 H 124 H 28 H 122/80 12/11/18 01:01 124 H 27 H 118/85 12/11/18 00:57 124 H 116/82 12/11/18 00:00 99.8 F H 123 H 124 H 27 H 116/82 12/10/18 23:00 122 H 29 H 123/86 12/10/18 22:03 123 H 24 111/68 12/10/18 22:00 124 H 124 H 26 H 114/76 12/10/18 21:00 125 H 26 H 111/68 12/10/18 20:37 123 H 27 H 12/10/18 20:15 120 H 128/82 12/10/18 20:01 123 H 35 H 128/82 12/10/18 20:00 100.3 F H 120 H 20 12/10/18 19:00 122 H 29 H 119/83 12/10/18 18:00 123 H 24 101/76 12/10/18 17:00 122 H 29 H 116/73 12/10/18 16:10 124 H 28 H 12/10/18 16:00 98.4 F 129 H 128 H 25 H 114/72 12/10/18 15:01 136 H 35 H 124/89 12/10/18 14:00 131 H 36 H 132/93 12/10/18 13:34 98.7 F 12/10/18 13:00 125 H 28 H 126/87 12/10/18 12:15 120 H 20 12/10/18 12:00 98.7 F 125 H 119 H 19 118/76 Pulse Ox 12/11/18 10:00 98 12/11/18 09:06 100 12/11/18 09:05 12/11/18 09:01 98 12/11/18 08:00 99 12/11/18 07:40 97 12/11/18 07:00 98 12/11/18 06:00 98 12/11/18 05:51 97 12/11/18 05:00 98 12/11/18 04:00 100 12/11/18 03:28 12/11/18 03:00 100 12/11/18 02:00 100 12/11/18 01:01 98 12/11/18 00:57 98 12/11/18 00:00 99 12/10/18 23:00 99 12/10/18 22:03 98 12/10/18 22:00 97 12/10/18 21:00 97 12/10/18 20:37 12/10/18 20:15 94 12/10/18 20:01 12/10/18 20:00 98 12/10/18 19:00 99 12/10/18 18:00 99 12/10/18 17:00 98 12/10/18 16:10 12/10/18 16:00 98 12/10/18 15:01 96 12/10/18 14:00 100 12/10/18 13:34 12/10/18 13:00 98 12/10/18 12:15 12/10/18 12:00 99 - Physical Examination General: Other (on the vent) HEENT: Positive: PERRL Cardiac: Positive: Tachycardia Neuro: Positive: Other (unresponsive, on the vent) Extremities: Absent: edema - Labs and Meds Cardiac Enzymes 12/11/18 Range/Units 06:42 AST 45 H (5-40) units/L CBC 12/11/18 Range/Units 06:42 WBC 3.5 L (4.5-11.0) K/mm3 RBC 2.77 L (3.65-5.03) M/mm3 Hgb 10.2 L (11.8-15.2) gm/dl Hct 31.5 L (35.5-45.6) % Plt Count 67 L (140-440) K/mm3 Lymph # 0.3 L (1.2-5.4) K/mm3 Ida # 0.2 (0.0-0.8) K/mm3 Eos # 0.1 (0.0-0.4) K/mm3 Baso # 0.0 (0.0-0.1) K/mm3 Comprehensive Metabolic Panel 12/11/18 Range/Units 06:42 Sodium 145 (137-145) mmol/L Potassium 4.1 (3.6-5.0) mmol/L Chloride 111.2 H (98-107) mmol/L Carbon Dioxide 22 (22-30) mmol/L BUN 64 H (9-20) mg/dL Creatinine 2.1 H (0.8-1.5) mg/dL Glucose 173 H (75-100) mg/dL Calcium 8.5 (8.4-10.2) mg/dL AST 45 H (5-40) units/L ALT 35 (7-56) units/L Alkaline Phosphatase 291 H (35-129) units/L Total Protein 5.5 L (6.3-8.2) g/dL Albumin 2.1 L (3.9-5) g/dL
[2018-12-12] MEDS: HumaLOG SUB-Q SCH ×4 (06:25→18:59)
[2018-12-12 06:49] LABS: Calcium 8.3 mg/dL (8.4-10.2)
--- NOTE | 2018-12-12 07:10 | Hem/Onc Progress Note ---
Assessment and Plan 1. h/o Thrombocytopenia. The patient has multiple issues, which include HIV/immunosuppression medications. 2. At this time, there is no active bleeding. 3. h/o Unresponsive. 4. h/o Leukopenia. 5. h/o Macrocytosis. This may be medication related. 6. History of diabetes. 7. History of hypertension. 8. History of cerebrovascular accident. 9. History of dementia. 10. Chronic obstructive pulmonary disease. 11. Renal impairment. 12. Metabolic encephalopathy. 13. h/o Intubation. Respiratory support. 14. I will follow the patient during inpatient stay. We will follow the patient. B12 is normal. ID following for HIV s/p plt transfusion ID following for LP on folic acid - as folate was low awake - still on vent - follows some commands - of moving legs pt 67 - follow - Patient Problems (1) Thrombocytopenia Current Visit: Yes Status: Acute Subjective Date of service: 12/12/18 Principal diagnosis: low plt Interval history: still on vent - awake Objective - Exam Narrative Exam: Pain - not verbal General appearance - not verbal - intubated Performance status complete dependence Eyes - no icterus ENT - no bleeding LNs cervical - not palpable Neck - no LN Respiratory Normal Breath sounds - CTA anteriorly CVS S1 S2 + Extremities no edema General GI Soft Rectal deferred male - deferred Skin warm Musculoskeletal moves limbs Neurologically non verbal - awake - Constitutional Vitals: Last Vital Signs Temp 97.6 F 12/12/18 04:00 Pulse 114 H 12/12/18 05:00 Resp 19 12/12/18 05:00 BP 101/67 12/12/18 05:00 Pulse Ox 98 12/12/18 05:00 - Labs Lab Results: Laboratory Results - last 24 hr 12/11/18 12/11/18 12/11/18 06:42 06:42 12:07 WBC 3.5 L RBC 2.77 L Hgb 10.2 L Hct 31.5 L MCV 114 H MCH 37 H MCHC 32 RDW 17.4 H Plt Count 67 L Lymph % (Auto) 9.4 L Baso % (Auto) 0.2 Lymph # 0.3 L Sodium 145 Potassium 4.1 Chloride 111.2 H Carbon Dioxide 22 Anion Gap 16 BUN 64 H Creatinine 2.1 H Estimated GFR 38 BUN/Creatinine Ratio 30 Glucose 173 H POC Glucose 116 H Calcium 8.5 Total Bilirubin 0.30 AST 45 H ALT 35 Alkaline Phosphatase 291 H Total Protein 5.5 L Albumin 2.1 L Albumin/Globulin Ratio 0.6 12/11/18 12/11/18 12/12/18 16:47 23:16 05:30 WBC RBC Hgb Hct MCV MCH MCHC RDW Plt Count Lymph % (Auto) Baso % (Auto) Lymph # Sodium Potassium Chloride Carbon Dioxide Anion Gap BUN Creatinine Estimated GFR BUN/Creatinine Ratio Glucose POC Glucose 128 H 161 H 147 H Calcium Total Bilirubin AST ALT Alkaline Phosphatase Total Protein Albumin Albumin/Globulin Ratio 12/12/18 06:23 WBC RBC Hgb Hct MCV MCH MCHC RDW Plt Count Lymph % (Auto) Baso % (Auto) Lymph # Sodium 141 Potassium 4.1 Chloride 109.6 H Carbon Dioxide 20 L Anion Gap 16 BUN 74 H Creatinine 2.6 H Estimated GFR 29 BUN/Creatinine Ratio 28 Glucose 144 H POC Glucose Calcium 8.3 L Total Bilirubin AST ALT Alkaline Phosphatase Total Protein Albumin Albumin/Globulin Ratio Medications & Allergies - Medications Allergies/Adverse Reactions: Allergies No Known Allergies Allergy (Unverified 03/29/16 00:43) Home Medications: Home Medications Medication Instructions Recorded Confirmed Last Taken Type Aspirin [Aspirin BABY CHEW TAB] 81 mg PO QDAY #30 tab.chew 11/15/17 11/29/18 Unknown Rx Amlodipine Besylate 10 mg PO QDAY 05/21/18 11/29/18 Unknown History Carvedilol 6.25 mg PO BID 05/21/18 11/29/18 Unknown History Isentress 400 mg PO Q12HR 05/21/18 11/29/18 Unknown History Rosuvastatin Calcium 10 mg PO DAILY 05/21/18 11/29/18 Unknown History Memantine [Namenda] 5 mg PO QDAY #30 tablet 11/01/18 11/29/18 Unknown Rx Albuterol Sulfate [Albuterol 0.63% 0.63 mg IH TID PRN 30 Days ml 11/07/18 11/29/18 Unknown Rx NEBS] AtorvaSTATin [Lipitor] 20 mg PO QDAY #30 tablet 11/07/18 11/29/18 Unknown Rx Famotidine [Pepcid] 10 mg PO BID #60 tablet 11/07/18 11/29/18 Unknown Rx Ipratropium/Albuterol Sulfate 1 ampul IH Q6HR 30 Days ampul.neb 11/07/18 11/29/18 Unknown Rx [DUONEB *Not for PRN Use*] Tamsulosin [Flomax] 0.4 mg PO QHS #30 capsule 11/07/18 11/29/18 Unknown Rx Zidovudine 300 mg PO DAILY 11/09/18 11/29/18 Unknown History Insulin Regular, Human [HumuLIN R] 0 unit SQ AC #1 vial 11/12/18 11/29/18 Unknown Rx Active Medications: Generic Name Dose Route Start Last Admin Trade Name Freq PRN Reason Stop Dose Admin Abacavir Sulfate 600 mg 11/30/18 16:00 12/11/18 10:57 Ziagen PO 600 mg DAILY KEN Administration Albuterol 2.5 mg 11/30/18 00:17 Proventil IH Q4HRT PRN Shortness Of Breath Albuterol/Ipratropium 1 ampul 11/30/18 08:00 12/11/18 19:50 Duoneb *Not For Prn Use* IH 1 ampul QIDRT KEN Administration Lipase/Protease/Amylase 1 each 12/03/18 10:[address] 10,500 Unit FEEDTUBE PRN PRN For Clogged Feeding Tube Docusate Sodium 100 mg 12/08/18 13:00 12/11/18 21:27 Colace PO 100 mg BID KEN Administration Famotidine 10 mg 12/04/18 11:00 12/11/18 21:29 Pepcid PO 10 mg BID KEN Administration Fentanyl 50 mcg 12/04/18 17:28 12/09/18 23:53 Sublimaze IV 50 mcg Q2H PRN Administration INCREASED AGITATION Folic Acid 1 mg 12/04/18 12:00 12/11/18 09:20 Folvite PO 1 mg QDAY KEN Administration Insulin Glargine 12 units 12/09/18 12:00 12/11/18 22:00 Lantus SUB-Q 12 units Q12H KEN Administration Insulin Human Lispro 0 unit 11/30/18 07:00 12/12/18 06:25 Humalog SUB-Q 3 unit Q6HR KEN Administration Protocol Lamivudine 300 mg 12/11/18 10:00 12/11/18 09:25 Epivir PO 300 mg QDAY KNE Administration Metoclopramide HCl 5 mg 11/30/18 00:22 Reglan IV Q6H PRN Nausea And Vomiting Ondansetron HCl 4 mg 11/30/18 00:06 Zofran IV Q8H PRN Nausea And Vomiting Raltegravir 400 mg 11/30/18 16:00 12/11/18 21:29 Isentress PO 400 mg BID KEN Administration Simple Syrup 15 ml 12/03/18 10:42 Simple Syrup FEEDTUBE PRN PRN Hypoglycemia Simple Syrup 30 ml 12/03/18 10:42 Simple Syrup FEEDTUBE PRN PRN Hypoglycemia Sodium Bicarbonate 325 mg 12/03/18 10:42 Sodium Bicarbonate FEEDTUBE PRN PRN For Clogged Feeding Tube Sodium Chloride 10 ml 11/30/18 10:00 12/11/18 22:10 Sodium Chloride Flush Syringe 10 Ml IV 10 ml BID KEN Administration Sodium Chloride 10 ml 11/30/18 00:06 Sodium Chloride Flush Syringe 10 Ml IV PRN PRN LINE FLUSH Zidovudine 300 mg 11/30/18 16:00 12/11/18 21:32 Retrovir PO 300 mg BID KEN Administration
[2018-12-12] MEDS: DUONEB *Not for PRN Use IH SCH ×4 (08:28→19:13)
--- NOTE | 2018-12-12 09:06 | Progress Note ---
Assessment and Plan Assessment and plan: Patient is a 73 yo man from [facility] with severe end-stage co-morbities including HIV, type 2 DM, NSTEMI type 2, hyperkalemia, hypernatremia, malnutrition, severe CHF with EF 15-20%, Dementia, CVA with SAH after fall here at [facility] on 05/22/18 with transferred to [facility], recurrent bouts of hypog lycmia, who had been admitted 3 times this month of November 2018. Initially he was admitted on 10/24/18 to 11/01/18 due to AMS, new CVA was ruled out by MRI but did show chronic infarcts in the right parietal lobe and the right MCA [place] [employer] watershed territory and chronic lacunar infarct in the right paracentral [place] area. It was recommended that patient go to SNF but refused and took him home. He returned 2 days later due to hypoglycemia, it appears he wasn't eating enough but still taking DM medications. He was then discharged to [facility] on 11/07/2018. He returned 2 days later on 11/09/2018 due to hypoxemia and hypoglycemia again. He was discharged back to the [place] on . Now he returns to the ED on 11/29/18 with severe worsening AMS GCS of 5 requiring Intubation. I do not know why he is on Fentanyl drip. * CT head without contrast Impression: There is continued extensive microvascula r angiopathy as detailed...without CT evidence of acute ICH. * pCXR Impression: Minimal interstitial edema, ngt in stomach, needs advancing 5-10 cm, borderline cardiomegaly, no consolidation or effusion * Abd XRAY after NGT advancement, shows it is in the correct position * Prior admissions was secondary to Hypoglycemia * Neurology believes that prior stroke may be playing a part although imaging studies do not show any new stroke --Acute respiratory failure; requiring intubation more than 96 hours Vent dependent, unable to wean, pulmonary following Continue current management, patient may need trach and PEG If cannot tolerate weaning parameters --Acute metabolic encephalopathy; present on admission; multifactorial Continue supportive care --History of HIV; management per ID . --Type 2 diabetes mellitus; Accu-Chek sliding scale coverage and ADA diet and insulin --SIRS with possible sepsis: Extensively evaluated ID managed the patient, monitor off antibiotics --Acute on chronic systolic congestive heart failure: Ejection fraction 10-20%, Cardiology following Continue current anti-failure medications --Acute kidney injury; vasomotor nephropathy Avoid nephrotoxins, nephrology following --Hypernatremia; present on admission, now resolved Closely monitor electrolytes --Type 2 diabetes mellitus; Accu-Chek sliding scale coverage and ADA diet Insulin as needed --Nonspecific elevation of troponins; supportive care Cardiology following --Severe thrombocytopenia ; please secondary to underlying HIV No evidence of bleeding, closely monitor transfuse as needed --Severe malnutrition/hypoalbuminemia; nutrition supplements Nutrition consult, supportive care --DVT prophylaxis; SCDs No pharmacologic anticoagulation in view of severe thrombocytopenia --Full CODE STATUS --Poor prognosis; plan of care is reviewed with the patient's nurse and case management Monitor closely and adjust management as needed Consults and recommendations noted and appreciated No family present, we'll try to contact and discuss patient's current status Critical care time 32 minutes The high probability of a clinically significant, sudden or life threatening deterioration of the [pulm, ID, cardio, renal, hemat, metabolic and neuro] system(s) required my full and direct attention, intervention and personal management. The aggregate critical care time was [32] minutes. This time is in addition to time spent performing reported procedures but includes the following : [x] Data Review and interpretation [x] Patient assessment and monitoring of vital signs [x] Documentation [x] Medication orders and management History Interval history: Patient seen and examined medical records reviewed Patient remains intubated on ventilatory support Critically ill Vital signs noted Hospitalist Physical - Constitutional Vitals: Temp Pulse Resp BP Pulse Ox 97.3 F L 116 H 20 95/62 100 12/12/18 08:00 12/12/18 08:36 12/12/18 08:28 12/12/18 08:36 12/12/18 08:36 General appearance: Present: no acute distress, well-nourished, other (intubated on vent) - EENT Eyes: Present: PERRL, EOM intact - Neck Neck: Present: supple, normal ROM - Respiratory Respiratory effort: normal Respiratory: bilateral: diminished, rhonchi, negative: rales, wheezing - Cardiovascular Rhythm: regular Heart Sounds: Present: S1 & S2 - Extremities Extremities: no ischemia, No edema - Abdominal General gastrointestinal: soft, non-tender, non-distended, normal bowel sounds - Integumentary Integumentary: Present: clear, warm - Psychiatric Psychiatric: other (vent dependent) - Neurologic Neurologic: other (intubated) Results - Labs CBC & Chem 7: 12/11/18 06:42 12/12/18 06:23 Labs: Laboratory Last Values WBC 3.5 K/mm3 (4.5-11.0) L 12/11/18 06:42 RBC 2.77 M/mm3 (3.65-5.03) L 12/11/18 06:42 Hgb 10.2 gm/dl (11.8-15.2) L 12/11/18 06:42 Hct 31.5 % (35.5-45.6) L 12/11/18 06:42 MCV 114 fl (84-94) H 12/11/18 06:42 MCH 37 pg (28-32) H 12/11/18 06:42 MCHC 32 % (32-34) 12/11/18 06:42 RDW 17.4 % (13.2-15.2) H 12/11/18 06:42 Plt Count 67 K/mm3 (140-440) L 12/11/18 06:42 Lymph % (Auto) 9.4 % (13.4-35.0) L 12/11/18 06:42 Davidson % (Auto) 4.3 % (0.0-7.3) 12/11/18 06:42 Eos % (Auto) 1.5 % (0.0-4.3) 12/11/18 06:42 Baso % (Auto) 0.2 % (0.0-1.8) 12/11/18 06:42 Lymph # 0.3 K/mm3 (1.2-5.4) L 12/11/18 06:42 Davidson # 0.2 K/mm3 (0.0-0.8) 12/11/18 06:42 Eos # 0.1 K/mm3 (0.0-0.4) 12/11/18 06:42 Baso # 0.0 K/mm3 (0.0-0.1) 12/11/18 06:42 Add Manual Diff Complete 12/07/18 02:40 Total Counted 100 12/07/18 02:40 Seg Neutrophils % 84.6 % (40.0-70.0) H 12/11/18 06:42 Seg Neuts % (Manual) 99.0 % (40.0-70.0) H 12/07/18 02:40 0 % 12/07/18 02:40 1.0 % (13.4-35.0) L 12/07/18 02:40 Reactive Lymphs % (Man) 0 % 12/07/18 02:40 0 % (0.0-7.3) 12/07/18 02:40 0 % (0.0-4.3) 12/07/18 02:40 0 % (0.0-1.8) 12/07/18 02:40 0 % 12/07/18 02:40 0 % 12/07/18 02:40 0 % 12/07/18 02:40 0 % 12/07/18 02:40 Nucleated RBC % Not Reportable 12/07/18 02:40 Seg Neutrophils # 3.0 K/mm3 (1.8-7.7) 12/11/18 06:42 Seg Neutrophils # Man 7.1 K/mm3 (1.8-7.7) 12/07/18 02:40 Band Neutrophils # 0.0 K/mm3 12/07/18 02:40 0.1 K/mm3 (1.2-5.4) L 12/07/18 02:40 Abs React Lymphs (Man) 0.0 K/mm3 12/07/18 02:40 0.0 K/mm3 (0.0-0.8) 12/07/18 02:40 0.0 K/mm3 (0.0-0.4) 12/07/18 02:40 0.0 K/mm3 (0.0-0.1) 12/07/18 02:40 0.0 K/mm3 12/07/18 02:40 0.0 K/mm3 12/07/18 02:40 0.0 K/mm3 12/07/18 02:40 Blast Cells # 0.0 K/mm3 12/07/18 02:40 WBC Morphology Not Reportable 12/07/18 02:40 Hypersegmented Neuts Not Reportable 12/07/18 02:40 Hyposegmented Neuts Not Reportable 12/07/18 02:40 Hypogranular Neuts Not Reportable 12/07/18 02:40 Not Reportable 12/07/18 02:40 Not Reportable 12/07/18 02:40 Not Reportable 12/07/18 02:40 Not Reportable 12/07/18 02:40 Not Reportable 12/07/18 02:40 Not Reportable 12/07/18 02:40 Consistent w auto 12/07/18 02:40 Not Reportable 12/07/18 02:40 Plt Clumps, EDTA Not Reportable 12/07/18 02:40 Not Reportable 12/07/18 02:40 Not Reportable 12/07/18 02:40 Not Reportable 12/07/18 02:40 Plt Morphology Comment Not Reportable 12/07/18 02:40 RBC Morphology Not Reportable 12/07/18 02:40 Dimorphic RBCs Not Reportable 12/07/18 02:40 Not Reportable 12/07/18 02:40 Not Reportable 12/07/18 02:40 1+ 12/07/18 02:40 1+ 12/07/18 02:40 Not Reportable 12/07/18 02:40 1+ 12/07/18 02:40 Not Reportable 12/07/18 02:40 Not Reportable 12/07/18 02:40 Not Reportable 12/07/18 02:40 Not Reportable 12/07/18 02:40 Rare 12/07/18 02:40 Not Reportable 12/07/18 02:40 Not Reportable 12/07/18 02:40 Not Reportable 12/07/18 02:40 Not Reportable 12/07/18 02:40 Few 12/07/18 02:40 Not Reportable 12/07/18 02:40 Not Reportable 12/07/18 02:40 Few 12/07/18 02:40 Acanthocytes (Spur) Not Reportable 12/07/18 02:40 Rouleaux Not Reportable 12/07/18 02:40 Not Reportable 12/07/18 02:40 Not Reportable 12/07/18 02:40 Not Reportable 12/07/18 02:40 Not Reportable 12/07/18 02:40 Hem Pathologist Commnt No 12/07/18 02:40 PT 17.0 Sec. (12.2-14.9) H 12/04/18 08:01 INR 1.42 (0.87-1.13) H 12/04/18 08:01 APTT 36.4 Sec. (24.2-36.6) 12/04/18 08:01 POC ABG pH 7.437 (7.35-7.45) 12/04/18 03:48 ABG pH 7.440 pH Units (7.350-7.450) 12/10/18 04:40 POC ABG pCO2 39.5 (35-45) 11/29/18 14:24 ABG pCO2 34.0 mm Hg 12/10/18 04:40 POC ABG pO2 82 (80-105) 12/04/18 03:48 ABG pO2 80.8 mm Hg (80.0-90.0) 12/10/18 04:40 POC ABG HCO3 19.3 (22-26 mml/L) 12/04/18 03:48 ABG HCO3 22.6 mmol/L (20.0-26.0) 12/10/18 04:40 POC ABG Total CO2 20 (23-27mmol/L) 12/04/18 03:48 POC ABG O2 Sat 97 12/04/18 03:48 ABG O2 Saturation 96.9 % (95.0-99.0) 12/10/18 04:40 ABG O2 Content 14.2 (0.0-44) 12/10/18 04:40 POC ABG Base Excess -5 ((-2) - (+3)mmol/L) 12/04/18 03:48 ABG Base Excess -1.1 mmol/L (-2.0-3.0) 12/10/18 04:40 ABG Hemoglobin 10.6 gm/dl (14.0-18.0) L 12/10/18 04:40 ABG Carboxyhemoglobin 1.7 % (0.0-5.0) 12/10/18 04:40 ABG Methemoglobin 0.4 % (0.0-1.5) 12/10/18 04:40 VBG pH 7.186 (7.320-7.420) L* 11/29/18 13:39 94.8 % (95.0-99.0) L 12/10/18 04:40 25 % 12/10/18 04:40 Sodium 141 mmol/L (137-145) 12/12/18 06:23 Potassium 4.1 mmol/L (3.6-5.0) 12/12/18 06:23 Chloride 109.6 mmol/L (98-107) H 12/12/18 06:23 Carbon Dioxide 20 mmol/L (22-30) L 12/12/18 06:23 16 mmol/L 12/12/18 06:23 BUN 74 mg/dL (9-20) H 12/12/18 06:23 2.6 mg/dL (0.8-1.5) H 12/12/18 06:23 Estimated GFR 29 ml/min 12/12/18 06:23 28 % 12/12/18 06:23 Glucose 144 mg/dL (75-100) H 12/12/18 06:23 POC Glucose 147 (70-105) H 12/12/18 05:30 Lactic Acid 1.30 mmol/L (0.7-2.0) 11/29/18 14:42 Calcium 8.3 mg/dL (8.4-10.2) L 12/12/18 06:23 Phosphorus 2.80 mg/dL (2.5-4.5) 12/04/18 08:01 Magnesium 2.10 mg/dL (1.7-2.3) 12/04/18 08:01 Iron 20 ug/dL (49-181) L 12/04/18 08:01 TIBC 168 mcg/dL (250-450) L 12/04/18 08:01 174.3 ng/mL (13.0-400.0) 12/04/18 08:01 0.30 mg/dL (0.1-1.2) 12/11/18 06:42 AST 45 units/L (5-40) H 12/11/18 06:42 ALT 35 units/L (7-56) 12/11/18 06:42 291 units/L (35-129) H 12/11/18 06:42 28.0 umol/L (25-60) 11/29/18 13:39 243 units/L (55-170) H 11/29/18 13:39 0.054 ng/mL (0.00-0.029) H 11/29/18 13:39 5.5 g/dL (6.3-8.2) L 12/11/18 06:42 2.1 g/dL (3.9-5) L 12/11/18 06:42 0.6 % 12/11/18 06:42 Triglycerides 68 mg/dL (2-149) 11/29/18 13:39 Cholesterol 95 mg/dL (50-199) 11/29/18 13:39 30 mg/dL (50-130) L 11/29/18 13:39 63 mg/dL (40-59) H 11/29/18 13:39 1.50 % 11/29/18 13:39 Vitamin B12 1798 pg/mL (211-911) H 12/05/18 03:42 7.24 ng/mL (7.3-26.0) L 12/04/18 08:01 14.8 mcg/dL () 12/01/18 09:08 Yellow (Yellow) 11/29/18 13:16 Clear (Clear) 11/29/18 13:16 5.0 (5.0-7.0) 11/29/18 13:16 Ur Specific [place] 1.018 (1.003-1.030) 11/29/18 13:16 30 mg/dl mg/dL (Negative) 11/29/18 13:16 Neg mg/dL (Negative) 11/29/18 13:16 Neg mg/dL (Negative) 11/29/18 13:16 Neg (Negative) 11/29/18 13:16 Neg (Negative) 11/29/18 13:16 Neg (Negative) 11/29/18 13:16 < 2.0 mg/dL (<2.0) 11/29/18 13:16 Ur Leukocyte Esterase Neg (Negative) 11/29/18 13:16 5.0 /HPF (0.0-6.0) 11/29/18 13:16 2.0 /HPF (0.0-6.0) 11/29/18 13:16 1+ /HPF (Negative) 11/29/18 13:16 173.8 mg/dL (0.1-20.0) H 11/30/18 14:20 18 mmol/L 11/30/18 14:20 Clear 12/02/18 Unknown Colorless 12/02/18 Unknown 2 /mm3 (1-10) 12/02/18 Unknown 1 /mm3 (0-0) 12/02/18 Unknown CSF Seg Neutrophils 50.0 % (0-6) 12/02/18 Unknown 0 % (40-80) 12/02/18 Unknown CSF Reactive Lymphs 0 % 12/02/18 Unknown 50.0 % (15-45) 12/02/18 Unknown 0 % 12/02/18 Unknown 0 % 12/02/18 Unknown C 12/02/18 Unknown 122 mg/dL 12/02/18 Unknown 22 mg/dL 12/02/18 Unknown Nonreactive (Nonreactive) 12/02/18 Unknown Random Vancomycin 10.7 ug/mL (0-40.0) 12/01/18 13:20 Salicylates < 0.3 mg/dL (2.8-20.0) L 11/29/18 13:39 Presumptive negative 11/29/18 13:16 Presumptive negative 11/29/18 13:16 Acetaminophen < 5.0 ug/mL (10.0-30.0) L 11/29/18 13:39 Ur Barbiturates Screen Presumptive negative 11/29/18 13:16 Ur Phencyclidine Scrn Presumptive negative 11/29/18 13:16 Ur Amphetamines Screen Presumptive negative 11/29/18 13:16 U Benzodiazepines Scrn Presumptive negative 11/29/18 13:16 Presumptive negative 11/29/18 13:16 U Marijuana (THC) Screen Presumptive negative 11/29/18 13:16 Disclamer 11/29/18 13:16 Non-reactive (NonReactive) 12/01/18 04:08 RPR Nonreactive (Nonreactive) 12/02/18 17:04 Hepatitis A IgM Ab Non-reactive (NonReactive) 12/02/18 17:04 Hep Bs Antigen Non-reactive (Negative) 12/02/18 17:04 Hep B Core IgM Ab Non-reactive (NonReactive) 12/02/18 17:04 Non-reactive (NonReactive) 12/02/18 17:04 Flexitest 1 12/06/18 Unknown Flexitest 1 12/06/18 Unknown Blood Type B POSITIVE 12/06/18 04:02 Antibody Screen Negative 11/29/18 13:39 Active Medications - Current Medications Current Medications: Generic Name Dose Route Start Last Admin Trade Name Freq PRN Reason Stop Dose Admin Abacavir Sulfate 600 mg 11/30/18 16:00 12/11/18 10:57 Ziagen PO 600 mg DAILY KEN Administration Albuterol 2.5 mg 11/30/18 00:17 Proventil IH Q4HRT PRN Shortness Of Breath Albuterol/Ipratropium 1 ampul 11/30/18 08:00 12/12/18 08:28 Duoneb *Not For Prn Use* IH 1 ampul QIDRT KEN Administration Lipase/Protease/Amylase 1 each 12/03/18 10:42 Pancreaze 10,500 Unit FEEDTUBE PRN PRN For Clogged Feeding Tube Docusate Sodium 100 mg 12/08/18 13:00 12/11/18 21:27 Colace PO 100 mg BID KEN Administration Famotidine 10 mg 12/04/18 11:00 12/11/18 21:29 Pepcid PO 10 mg BID KEN Administration Fentanyl 50 mcg 12/04/18 17:28 12/09/18 23:53 Sublimaze IV 50 mcg Q2H PRN Administration INCREASED AGITATION Folic Acid 1 mg 12/04/18 12:00 12/11/18 09:20 Folvite PO 1 mg QDAY KEN Administration Insulin Glargine 12 units 12/09/18 12:00 12/11/18 22:00 Lantus SUB-Q 12 units Q12H KEN Administration Insulin Human Lispro 0 unit 11/30/18 07:00 12/12/18 06:25 Humalog SUB-Q 3 unit Q6HR KEN Administration Protocol Lamivudine 300 mg 12/11/18 10:00 12/11/18 09:25 Epivir PO 300 mg QDAY KEN Administration Metoclopramide HCl 5 mg 11/30/18 00:22 Reglan IV Q6H PRN Nausea And Vomiting Ondansetron HCl 4 mg 11/30/18 00:06 Zofran IV Q8H PRN Nausea And Vomiting Raltegravir 400 mg 11/30/18 16:00 12/11/18 21:29 Isentress PO 400 mg BID KEN Administration Simple Syrup 15 ml 12/03/18 10:42 Simple Syrup FEEDTUBE PRN PRN Hypoglycemia Simple Syrup 30 ml 12/03/18 10:42 Simple Syrup FEEDTUBE PRN PRN Hypoglycemia Sodium Bicarbonate 325 mg 12/03/18 10:42 Sodium Bicarbonate FEEDTUBE PRN PRN For Clogged Feeding Tube Sodium Chloride 10 ml 11/30/18 10:00 12/11/18 22:10 Sodium Chloride Flush Syringe 10 Ml IV 10 ml BID EKN Administration Sodium Chloride 10 ml 11/30/18 00:06 Sodium Chloride Flush Syringe 10 Ml IV PRN PRN LINE FLUSH Zidovudine 300 mg 11/30/18 16:00 12/11/18 21:32 Retrovir PO 300 mg BID KEN Administration Nutrition/Malnutrition Assess - Dietary Evaluation Nutrition/Malnutrition Findings: Nutrition Notes Start: 11/30/18 08:33 Freq: Status: Active Protocol: Document 12/08/18 11:11 LM (Rec: 12/08/18 11:18 LM [email or web address]) Nutrition Notes Initial or Follow up Reassessment Current Diagnosis Acute Kidney Injury,COPD, Diabetes,Hypertension Other Pertinent Diagnosis dementia, HIV, AMS Current Diet Nepro at 50 ml/hr Labs/Tests BUN 53 Cr 1.6 BG 311 Pertinent Medications Humalog Height 6 ft 4 in Weight 84.6 kg [place] Body Weight (kg) 91.81 BMI 22.6 Subjective/Other Information Nepro running at 50 ml/hr at time of visit. Pt tolerating TF Percent of energy/protein needs met: 95%/100% Burn Absent Trauma Absent #1 Nutrition Diagnosis Inadequate oral intake Diagnosis Progress(for reassessment Continues documentation) Is patient on ventilator? Yes Is Patient Ambulatory and/or Out of Bed No REE-([place]-confined to bed) 2031.084 Kcal/Kg value to use for calculation 27 Approximate Energy Requirements Using 2284 kcal/Kg Calculation Used for Recommendations Kcal/kg Additional Notes Protein: 95-158g (1.2-2g/kg) Fluids 1 ml/kcal or per MD Nutrition Intervention Change Diet Order: Continue TF Nutrition Support: Nepro with Carbsteady at 50ml/ hr Change Flush to 200 ml q4hr hypernatremia resolved Kcal 2,160 Protein (gm) 97 Fluid (mL) 872 Goal #1 TF tolerance Goal #2 Meet at least 80% of energy and protein needs Anticipated Discharge Needs: Unable to determine at this time Follow-Up By: 12/14/18 Additional Comments F/U for TF restart/tolerance
[2018-12-12] MEDS: PEPCID PO SCH ×2 (09:44→21:57)
[2018-12-12] MEDS: EPIVIR PO SCH ×2 (09:44→09:53)
[2018-12-12] MEDS: FOLVITE PO SCH (09:45)
[2018-12-12] MEDS: ZIAGEN PO SCH (09:46)
[2018-12-12] MEDS: ISENTRESS PO SCH ×2 (09:50→21:58)
[2018-12-12] MEDS: COLACE PO SCH ×2 (09:51→21:57)
[2018-12-12] MEDS: RETROVIR PO SCH ×2 (09:56→21:58)
--- NOTE | 2018-12-12 10:20 | Progress Note ---
Assessment and Plan 1. Acute kidney injury: Vasomotor CONNIE superimposed on CKD in the setting of hypotension. Renal US negative for hydro. Creatinine level continue to increase likely due to tachycardia and hypotension. Monitor renal function. Renal prognosis is guarded. Avoid nephrotoxic agents. Meds dosage based on GFR. 2. FEN: Hypokalemia, K level is better. Hypernatremia, improved. Monitor lytes. 3. Acute hypoxic respiratory failure: Intubated on vent. 4. Acute Metabolic Encephalopathy. 5. Elevated troponin. 6. Macrocytic anemia: POA. 7. Type 2 DM. Subjective Date of service: 12/12/18 Principal diagnosis: low plt Interval history: Patient was seen and examined at the bedside. Objective - Vital Signs Vital signs: Vital Signs - 12hr 12/11/18 12/11/18 12/11/18 23:00 23:17 23:39 Temperature 97.6 F Pulse Rate 113 H 112 H Pulse Rate [ Anterior Bilateral Throughout] Pulse Rate [ From Monitor] Pulse Rate [ Right Dorsalis Pedis] Respiratory 21 Rate Respiratory Rate [Anterior Bilateral Throughout] Blood Pressure 104/61 104/61 O2 Sat by Pulse 95 97 Oximetry 12/11/18 12/11/18 12/12/18 23:46 23:49 00:00 Temperature Pulse Rate 120 H 95 H Pulse Rate [ Anterior Bilateral Throughout] Pulse Rate [ 120 H From Monitor] Pulse Rate [ 120 H Right Dorsalis Pedis] Respiratory 20 20 Rate Respiratory Rate [Anterior Bilateral Throughout] Blood Pressure 104/62 O2 Sat by Pulse 99 94 Oximetry 12/12/18 12/12/18 12/12/18 00:03 01:00 02:00 Temperature Pulse Rate 117 H 120 H 97 H Pulse Rate [ Anterior Bilateral Throughout] Pulse Rate [ From Monitor] Pulse Rate [ Right Dorsalis Pedis] Respiratory 20 25 H 18 Rate Respiratory Rate [Anterior Bilateral Throughout] Blood Pressure 104/62 110/69 106/68 O2 Sat by Pulse 96 95 95 Oximetry 12/12/18 12/12/18 12/12/18 03:01 03:16 03:22 Temperature Pulse Rate 120 H 121 H Pulse Rate [ Anterior Bilateral Throughout] Pulse Rate [ 122 H From Monitor] Pulse Rate [ 122 H Right Dorsalis Pedis] Respiratory 18 21 Rate Respiratory Rate [Anterior Bilateral Throughout] Blood Pressure 107/72 O2 Sat by Pulse 98 99 Oximetry 09/02/1912/12/18 12/12/18 03:53 04:00 04:01 Temperature 97.6 F 97.6 F Pulse Rate 119 H Pulse Rate [ Anterior Bilateral Throughout] Pulse Rate [ From Monitor] Pulse Rate [ Right Dorsalis Pedis] Respiratory 26 H Rate Respiratory Rate [Anterior Bilateral Throughout] Blood Pressure 107/72 O2 Sat by Pulse 98 Oximetry 12/12/18 12/12/18 12/12/18 04:24 05:00 06:00 Temperature Pulse Rate 118 H 114 H 117 H Pulse Rate [ Anterior Bilateral Throughout] Pulse Rate [ From Monitor] Pulse Rate [ Right Dorsalis Pedis] Respiratory 19 16 Rate Respiratory Rate [Anterior Bilateral Throughout] Blood Pressure 116/76 101/67 110/72 O2 Sat by Pulse 98 98 99 Oximetry 12/12/18 12/12/18 12/12/18 07:00 08:00 08:28 Temperature 97.3 F L Pulse Rate 119 H 119 H Pulse Rate [ 119 H Anterior Bilateral Throughout] Pulse Rate [ From Monitor] Pulse Rate [ Right Dorsalis Pedis] Respiratory 18 17 Rate Respiratory 20 Rate [Anterior Bilateral Throughout] Blood Pressure 110/67 95/62 O2 Sat by Pulse 98 100 Oximetry 12/12/18 08:36 Temperature Pulse Rate 116 H Pulse Rate [ Anterior Bilateral Throughout] Pulse Rate [ From Monitor] Pulse Rate [ Right Dorsalis Pedis] Respiratory Rate Respiratory Rate [Anterior Bilateral Throughout] Blood Pressure 95/62 O2 Sat by Pulse 100 Oximetry - General Appearance General appearance: well-developed, appears stated age, intubated, other (on vent) EENT: ATNC, PERRL Neck: supple Respiratory: Present: Clear to Ascultation Cardiology: tachycardia, S1S2 Gastrointestinal: normoactive bowel sounds, no tenderness, no distended Integumentary: no rash Neurologic: obtunded Musculoskeletal: other (trace LE edema noted) - Lab 12/11/18 06:42 12/12/18 06:23 Most recent lab results ABG pH 7.440 pH Units (7.350-7.450) 12/10/18 04:40 ABG pCO2 34.0 mm Hg 12/10/18 04:40 ABG pO2 80.8 mm Hg (80.0-90.0) 12/10/18 04:40 ABG HCO3 22.6 mmol/L (20.0-26.0) 12/10/18 04:40 ABG O2 Saturation 96.9 % (95.0-99.0) 12/10/18 04:40 Calcium 8.3 mg/dL (8.4-10.2) L 12/12/18 06:23 Phosphorus 2.80 mg/dL (2.5-4.5) 12/04/18 08:01 Magnesium 2.10 mg/dL (1.7-2.3) 12/04/18 08:01 173.8 mg/dL (0.1-20.0) H 11/30/18 14:20 18 mmol/L 11/30/18 14:20 Medications & Allergies - Medications Allergies/Adverse Reactions: Allergies No Known Allergies Allergy (Unverified 03/29/16 00:43) Home Medications: Home Medications Medication Instructions Recorded Confirmed Last Taken Type Aspirin [Aspirin BABY CHEW TAB] 81 mg PO QDAY #30 tab.chew 11/15/17 11/29/18 Unknown Rx Amlodipine Besylate 10 mg PO QDAY 05/21/18 11/29/18 Unknown History Carvedilol 6.25 mg PO BID 05/21/18 11/29/18 Unknown History Isentress 400 mg PO Q12HR 05/21/18 11/29/18 Unknown History Rosuvastatin Calcium 10 mg PO DAILY 05/21/18 11/29/18 Unknown History Memantine [Namenda] 5 mg PO QDAY #30 tablet 11/01/18 11/29/18 Unknown Rx Albuterol Sulfate [Albuterol 0.63% 0.63 mg IH TID PRN 30 Days ml 11/07/18 11/29/18 Unknown Rx NEBS] AtorvaSTATin [Lipitor] 20 mg PO QDAY #30 tablet 11/07/18 11/29/18 Unknown Rx Famotidine [Pepcid] 10 mg PO BID #60 tablet 11/07/18 11/29/18 Unknown Rx Ipratropium/Albuterol Sulfate 1 ampul IH Q6HR 30 Days ampul.neb 11/07/18 11/29/18 Unknown Rx [DUONEB *Not for PRN Use*] Tamsulosin [Flomax] 0.4 mg PO QHS #30 capsule 11/07/18 11/29/18 Unknown Rx Zidovudine 300 mg PO DAILY 11/09/18 11/29/18 Unknown History Insulin Regular, Human [HumuLIN R] 0 unit SQ AC #1 vial 11/12/18 11/29/18 Unknown Rx Active Medications: Generic Name Dose Route Start Last Admin Trade Name Anastasia PRN Reason Stop Dose Admin Abacavir Sulfate 600 mg 11/30/18 16:00 12/12/18 09:46 Ziagen PO 600 mg DAILY KEN Administration Albuterol 2.5 mg 11/30/18 00:17 Proventil IH Q4HRT PRN Shortness Of Breath Albuterol/Ipratropium 1 ampul 11/30/18 08:00 12/12/18 08:28 Duoneb *Not For Prn Use* IH 1 ampul QIDRT KEN Administration Lipase/Protease/Amylase 1 each 12/03/18 10:42 Pancreaze 10,500 Unit FEEDTUBE PRN PRN For Clogged Feeding Tube Docusate Sodium 100 mg 12/08/18 13:00 12/12/18 09:51 Colace PO 100 mg BID KEN Administration Famotidine 10 mg 12/04/18 11:00 12/12/18 09:44 Pepcid PO 10 mg BID KEN Administration Fentanyl 50 mcg 12/04/18 17:28 12/09/18 23:53 Sublimaze IV 50 mcg Q2H PRN Administration INCREASED AGITATION Folic Acid 1 mg 12/04/18 12:00 12/12/18 09:45 Folvite PO 1 mg QDAY KEN Administration Insulin Glargine 12 units 12/09/18 12:00 12/11/18 22:00 Lantus SUB-Q 12 units Q12H KEN Administration Insulin Human Lispro 0 unit 11/30/18 07:00 12/12/18 06:25 Humalog SUB-Q 3 unit Q6HR KEN Administration Protocol Lamivudine 150 mg 12/12/18 10:00 12/12/18 09:53 Epivir PO 150 mg QDAY KEN Administration Metoclopramide HCl 5 mg 11/30/18 00:22 Reglan IV Q6H PRN Nausea And Vomiting Ondansetron HCl 4 mg 11/30/18 00:06 Zofran IV Q8H PRN Nausea And Vomiting Raltegravir 400 mg 11/30/18 16:00 12/12/18 09:50 Isentress PO 400 mg BID KEN Administration Simple Syrup 15 ml 12/03/18 10:42 Simple Syrup FEEDTUBE PRN PRN Hypoglycemia Simple Syrup 30 ml 12/03/18 10:42 Simple Syrup FEEDTUBE PRN PRN Hypoglycemia Sodium Bicarbonate 325 mg 12/03/18 10:42 Sodium Bicarbonate FEEDTUBE PRN PRN For Clogged Feeding Tube Sodium Chloride 10 ml 11/30/18 10:00 12/11/18 22:10 Sodium Chloride Flush Syringe 10 Ml IV 10 ml BID KEN Administration Sodium Chloride 10 ml 11/30/18 00:06 Sodium Chloride Flush Syringe 10 Ml IV PRN PRN LINE FLUSH Zidovudine 300 mg 11/30/18 16:00 12/12/18 09:56 Retrovir PO 300 mg BID KEN Administration
--- NOTE | 2018-12-12 11:24 | Progress Note ---
Assessment and Plan 73 y/o male who presents with altered mental state, hypothermia, renal failure and hypernatremia and trop leak 1. Resp-Low grade temp, remains tachypnic. Will check CXR today. Renal function is worse today, may explain change in respiratory pattern but will rule out any new underlying lung disease 2. Neuro-Unsure of baseline mental state. Still does not follow commands. 3. ID-finished treatment 4. Renal-Appears to be chronic renal failure when reviewing labs from before. Improved and stable 5. Electrolytes- Will defer to nephrology as they are following. 6. Overall prognosis is guarded to poor. Family appears to want inpatient hospice which is appropriate. Await their decision on facility. Stable to transfer once they have made a decision. CCT 31 minutes. Subjective Date of service: 12/12/18 Principal diagnosis: low plt Interval history: Continues to have apnea on PSV trials. Family spoke with CM yesterday and do not want trach and peg. Reviewing facilities for inpatient hospice. Objective Vital Signs - 12hr 12/11/18 12/11/18 12/11/18 23:39 23:46 23:49 Temperature 97.6 F Pulse Rate 120 H Pulse Rate [ Anterior Bilateral Throughout] Pulse Rate [ 120 H From Monitor] Pulse Rate [ 120 H Right Dorsalis Pedis] Respiratory 20 Rate Respiratory Rate [Anterior Bilateral Throughout] Blood Pressure O2 Sat by Pulse 99 Oximetry 12/12/18 12/12/18 12/12/18 00:00 00:03 01:00 Temperature Pulse Rate 95 H 117 H 120 H Pulse Rate [ Anterior Bilateral Throughout] Pulse Rate [ From Monitor] Pulse Rate [ Right Dorsalis Pedis] Respiratory 20 20 25 H Rate Respiratory Rate [Anterior Bilateral Throughout] Blood Pressure 104/62 104/62 110/69 O2 Sat by Pulse 94 96 95 Oximetry 12/12/18 12/12/18 12/12/18 02:00 03:01 03:16 Temperature Pulse Rate 97 H 120 H Pulse Rate [ Anterior Bilateral Throughout] Pulse Rate [ 122 H From Monitor] Pulse Rate [ 122 H Right Dorsalis Pedis] Respiratory 18 18 21 Rate Respiratory Rate [Anterior Bilateral Throughout] Blood Pressure 106/68 107/72 O2 Sat by Pulse 95 98 99 Oximetry 12/12/18 12/12/18 12/12/18 03:22 03:53 04:00 Temperature 97.6 F 97.6 F Pulse Rate 121 H Pulse Rate [ Anterior Bilateral Throughout] Pulse Rate [ From Monitor] Pulse Rate [ Right Dorsalis Pedis] Respiratory Rate Respiratory Rate [Anterior Bilateral Throughout] Blood Pressure O2 Sat by Pulse Oximetry 12/12/18 12/12/18 12/12/18 04:01 04:24 05:00 Temperature Pulse Rate 119 H 118 H 114 H Pulse Rate [ Anterior Bilateral Throughout] Pulse Rate [ From Monitor] Pulse Rate [ Right Dorsalis Pedis] Respiratory 26 H 19 Rate Respiratory Rate [Anterior Bilateral Throughout] Blood Pressure 107/72 116/76 101/67 O2 Sat by Pulse 98 98 98 Oximetry 12/12/18 12/12/18 12/12/18 06:00 07:00 08:00 Temperature 97.3 F L Pulse Rate 117 H 119 H 119 H Pulse Rate [ Anterior Bilateral Throughout] Pulse Rate [ From Monitor] Pulse Rate [ Right Dorsalis Pedis] Respiratory 16 18 17 Rate Respiratory Rate [Anterior Bilateral Throughout] Blood Pressure 110/72 110/67 95/62 O2 Sat by Pulse 99 98 100 Oximetry 12/12/18 12/12/18 08:28 08:36 Temperature Pulse Rate 116 H Pulse Rate [ 119 H Anterior Bilateral Throughout] Pulse Rate [ From Monitor] Pulse Rate [ Right Dorsalis Pedis] Respiratory Rate Respiratory 20 Rate [Anterior Bilateral Throughout] Blood Pressure 95/62 O2 Sat by Pulse 100 Oximetry Constitutional: other (critically ill on vent, awake, eyes open) Eyes: non-icteric ENT: oropharynx moist, other (intubated) Neck: supple Effort: normal Ascultation: Bilateral: clear, diminished breath sounds, rhonchi Percussion: Bilateral: not dull Cardiovascular: other (tachy, RR; no mrg) Gastrointestinal: normoactive bowel sounds, soft, non-tender, non-distended Extremities: no cyanosis, no edema, pink and warm Neurologic: other (eyes open, not following commands for me) Psychiatric: other (unable to assess) CBC and BMP: 12/11/18 06:42 12/12/18 06:23 ABG, PT/INR, D-dimer: ABG POC ABG pH 7.437 (7.35-7.45) 12/04/18 03:48 ABG pH 7.440 pH Units (7.350-7.450) 12/10/18 04:40 ABG pCO2 34.0 mm Hg 12/10/18 04:40 POC ABG pO2 82 (80-105) 12/04/18 03:48 ABG pO2 80.8 mm Hg (80.0-90.0) 12/10/18 04:40 POC ABG HCO3 19.3 (22-26 mml/L) 12/04/18 03:48 POC ABG Total CO2 20 (23-27mmol/L) 12/04/18 03:48 POC ABG O2 Sat 97 12/04/18 03:48 ABG O2 Saturation 96.9 % (95.0-99.0) 12/10/18 04:40 PT/INR, D-dimer PT 17.0 Sec. (12.2-14.9) H 12/04/18 08:01 INR 1.42 (0.87-1.13) H 12/04/18 08:01 Abnormal lab findings: Abnormal Labs 11/29/18 11/29/18 11/29/18 13:07 13:39 13:39 WBC 3.2 L RBC 2.76 L Hgb 10.4 L Hct 32.1 L MCV 116 H MCH 38 H RDW 17.5 H Plt Count 48 L Lymph % (Auto) 5.4 L Lymph # 0.2 L Seg Neutrophils % 89.5 H Seg Neuts % (Manual) Lymphocytes % (Manual) Lymphocytes # (Manual) PT INR POC ABG pH POC ABG pO2 ABG pO2 ABG HCO3 ABG O2 Saturation ABG Base Excess ABG Hemoglobin VBG pH Oxyhemoglobin Sodium 153 H Potassium Chloride 113.3 H Carbon Dioxide 21 L BUN 55 H Creatinine 2.4 H Glucose 260 H POC Glucose 289 H Calcium Iron TIBC AST 68 H Alkaline Phosphatase 239 H Total Creatine Kinase 243 H Troponin T 0.054 H Total Protein 5.8 L Albumin 3.0 L LDL Cholesterol Direct 30 L HDL Cholesterol 63 H Vitamin B12 Folate Urine Creatinine Salicylates Acetaminophen 11/29/18 11/29/18 11/29/18 13:39 13:39 13:39 WBC RBC Hgb Hct MCV MCH RDW Plt Count Lymph % (Auto) Lymph # Seg Neutrophils % Seg Neuts % (Manual) Lymphocytes % (Manual) Lymphocytes # (Manual) PT INR POC ABG pH POC ABG pO2 ABG pO2 ABG HCO3 ABG O2 Saturation ABG Base Excess ABG Hemoglobin VBG pH 7.186 L* Oxyhemoglobin Sodium Potassium Chloride Carbon Dioxide BUN Creatinine Glucose POC Glucose Calcium Iron TIBC AST Alkaline Phosphatase Total Creatine Kinase Troponin T Total Protein Albumin LDL Cholesterol Direct HDL Cholesterol Vitamin B12 Folate Urine Creatinine Salicylates < 0.3 L Acetaminophen < 5.0 L 11/29/18 11/29/18 11/30/18 14:24 21:17 05:50 WBC RBC Hgb Hct MCV MCH RDW Plt Count Lymph % (Auto) Lymph # Seg Neutrophils % Seg Neuts % (Manual) Lymphocytes % (Manual) Lymphocytes # (Manual) PT INR POC ABG pH 7.319 L POC ABG pO2 126 H ABG pO2 203.3 H ABG HCO3 18.5 L ABG O2 Saturation 99.3 H ABG Base Excess -6.2 L ABG Hemoglobin 10.9 L VBG pH Oxyhemoglobin Sodium Potassium Chloride Carbon Dioxide BUN Creatinine Glucose POC Glucose 242 H Calcium Iron TIBC AST Alkaline Phosphatase Total Creatine Kinase Troponin T Total Protein Albumin LDL Cholesterol Direct HDL Cholesterol Vitamin B12 Folate Urine Creatinine Salicylates Acetaminophen 11/30/18 11/30/18 11/30/18 08:52 10:31 10:58 WBC RBC 3.05 L Hgb 11.5 L Hct 35.3 L MCV 116 H MCH 38 H RDW 17.2 H Plt Count 43 L Lymph % (Auto) Lymph # Seg Neutrophils % Seg Neuts % (Manual) Lymphocytes % (Manual) Lymphocytes # (Manual) PT INR POC ABG pH POC ABG pO2 ABG pO2 ABG HCO3 ABG O2 Saturation ABG Base Excess ABG Hemoglobin VBG pH Oxyhemoglobin Sodium 153 H Potassium Chloride 117.2 H Carbon Dioxide 18 L BUN 60 H Creatinine 2.8 H Glucose 216 H POC Glucose 234 H Calcium 8.2 L Iron TIBC AST Alkaline Phosphatase Total Creatine Kinase Troponin T Total Protein Albumin LDL Cholesterol Direct HDL Cholesterol Vitamin B12 Folate Urine Creatinine Salicylates Acetaminophen 11/30/18 11/30/18 11/30/18 12:40 14:20 17:35 WBC RBC Hgb Hct MCV MCH RDW Plt Count Lymph % (Auto) Lymph # Seg Neutrophils % Seg Neuts % (Manual) Lymphocytes % (Manual) Lymphocytes # (Manual) PT INR POC ABG pH POC ABG pO2 ABG pO2 ABG HCO3 ABG O2 Saturation ABG Base Excess ABG Hemoglobin VBG pH Oxyhemoglobin Sodium Potassium Chloride Carbon Dioxide BUN Creatinine Glucose POC Glucose 235 H 182 H Calcium Iron TIBC AST Alkaline Phosphatase Total Creatine Kinase Troponin T Total Protein Albumin LDL Cholesterol Direct HDL Cholesterol Vitamin B12 Folate Urine Creatinine 173.8 H Salicylates Acetaminophen 11/30/18 12/01/18 12/01/18 23:53 04:08 04:08 WBC RBC 3.11 L Hgb 11.7 L Hct 35.3 L MCV 113 H MCH 38 H RDW 16.9 H Plt Count 43 L Lymph % (Auto) Lymph # Seg Neutrophils % Seg Neuts % (Manual) Lymphocytes % (Manual) Lymphocytes # (Manual) PT INR POC ABG pH POC ABG pO2 ABG pO2 ABG HCO3 ABG O2 Saturation ABG Base Excess ABG Hemoglobin VBG pH Oxyhemoglobin Sodium 150 H Potassium Chloride 114.6 H Carbon Dioxide 16 L BUN 67 H Creatinine 2.9 H Glucose 193 H POC Glucose 149 H Calcium 8.2 L Iron TIBC AST Alkaline Phosphatase Total Creatine Kinase Troponin T Total Protein Albumin LDL Cholesterol Direct HDL Cholesterol Vitamin B12 Folate Urine Creatinine Salicylates Acetaminophen 12/01/18 12/01/18 12/01/18 04:55 05:11 13:33 WBC RBC Hgb Hct MCV MCH RDW Plt Count Lymph % (Auto) Lymph # Seg Neutrophils % Seg Neuts % (Manual) Lymphocytes % (Manual) Lymphocytes # (Manual) PT INR POC ABG pH POC ABG pO2 ABG pO2 91.9 H ABG HCO3 17.7 L ABG O2 Saturation ABG Base Excess -6.1 L ABG Hemoglobin 11.5 L VBG pH Oxyhemoglobin Sodium Potassium Chloride Carbon Dioxide BUN Creatinine Glucose POC Glucose 236 H 255 H Calcium Iron TIBC AST Alkaline Phosphatase Total Creatine Kinase Troponin T Total Protein Albumin LDL Cholesterol Direct HDL Cholesterol Vitamin B12 Folate Urine Creatinine Salicylates Acetaminophen 12/01/18 12/02/18 12/02/18 18:20 00:17 03:40 WBC RBC Hgb Hct MCV MCH RDW Plt Count Lymph % (Auto) Lymph # Seg Neutrophils % Seg Neuts % (Manual) Lymphocytes % (Manual) Lymphocytes # (Manual) PT INR POC ABG pH POC ABG pO2 ABG pO2 78.0 L ABG HCO3 16.4 L ABG O2 Saturation ABG Base Excess -6.2 L ABG Hemoglobin 11.4 L VBG pH Oxyhemoglobin 94.5 L Sodium Potassium Chloride Carbon Dioxide BUN Creatinine Glucose POC Glucose 177 H 192 H Calcium Iron TIBC AST Alkaline Phosphatase Total Creatine Kinase Troponin T Total Protein Albumin LDL Cholesterol Direct HDL Cholesterol Vitamin B12 Folate Urine Creatinine Salicylates Acetaminophen 12/02/18 12/02/18 12/02/18 05:11 05:26 07:50 WBC 4.1 L RBC 3.01 L Hgb 11.4 L Hct 34.1 L MCV 113 H MCH 38 H RDW 17.3 H Plt Count 40 L Lymph % (Auto) Lymph # Seg Neutrophils % Seg Neuts % (Manual) Lymphocytes % (Manual) Lymphocytes # (Manual) PT INR POC ABG pH POC ABG pO2 ABG pO2 ABG HCO3 ABG O2 Saturation ABG Base Excess ABG Hemoglobin VBG pH Oxyhemoglobin Sodium Potassium 5.6 H D Chloride 113.0 H Carbon Dioxide 16 L BUN 73 H Creatinine 2.8 H Glucose 202 H POC Glucose 179 H Calcium Iron TIBC AST Alkaline Phosphatase Total Creatine Kinase Troponin T Total Protein Albumin LDL Cholesterol Direct HDL Cholesterol Vitamin B12 Folate Urine Creatinine Salicylates Acetaminophen 12/02/18 12/02/18 12/02/18 11:57 18:40 18:43 WBC RBC Hgb Hct MCV MCH RDW Plt Count Lymph % (Auto) Lymph # Seg Neutrophils % Seg Neuts % (Manual) Lymphocytes % (Manual) Lymphocytes # (Manual) PT INR POC ABG pH POC ABG pO2 ABG pO2 ABG HCO3 ABG O2 Saturation ABG Base Excess ABG Hemoglobin VBG pH Oxyhemoglobin Sodium Potassium Chloride Carbon Dioxide BUN Creatinine Glucose POC Glucose 140 H 286 H 261 H Calcium Iron TIBC AST Alkaline Phosphatase Total Creatine Kinase Troponin T Total Protein Albumin LDL Cholesterol Direct HDL Cholesterol Vitamin B12 Folate Urine Creatinine Salicylates Acetaminophen 12/02/18 12/03/18 12/03/18 23:55 04:06 04:06 WBC 4.4 L RBC 2.96 L Hgb 11.3 L Hct 33.1 L MCV 112 H MCH 38 H RDW 16.7 H Plt Count 38 L Lymph % (Auto) Lymph # Seg Neutrophils % Seg Neuts % (Manual) Lymphocytes % (Manual) Lymphocytes # (Manual) PT INR POC ABG pH POC ABG pO2 ABG pO2 ABG HCO3 ABG O2 Saturation ABG Base Excess ABG Hemoglobin VBG pH Oxyhemoglobin Sodium 146 H Potassium Chloride 112.5 H Carbon Dioxide 18 L BUN 71 H Creatinine 2.5 H Glucose 258 H POC Glucose 303 H Calcium 8.3 L Iron TIBC AST Alkaline Phosphatase Total Creatine Kinase Troponin T Total Protein Albumin LDL Cholesterol Direct HDL Cholesterol Vitamin B12 Folate Urine Creatinine Salicylates Acetaminophen 12/03/18 12/03/18 12/03/18 05:17 11:25 17:46 WBC RBC Hgb Hct MCV MCH RDW Plt Count Lymph % (Auto) Lymph # Seg Neutrophils % Seg Neuts % (Manual) Lymphocytes % (Manual) Lymphocytes # (Manual) PT INR POC ABG pH POC ABG pO2 ABG pO2 ABG HCO3 ABG O2 Saturation ABG Base Excess ABG Hemoglobin VBG pH Oxyhemoglobin Sodium Potassium Chloride Carbon Dioxide BUN Creatinine Glucose POC Glucose 328 H 288 H 202 H Calcium Iron TIBC AST Alkaline Phosphatase Total Creatine Kinase Troponin T Total Protein Albumin LDL Cholesterol Direct HDL Cholesterol Vitamin B12 Folate Urine Creatinine Salicylates Acetaminophen 12/04/18 12/04/18 12/04/18 01:15 05:47 08:01 WBC RBC 3.11 L Hgb 11.7 L Hct MCV 115 H MCH 38 H RDW 17.6 H Plt Count 35 L Lymph % (Auto) 6.9 L Lymph # 0.3 L Seg Neutrophils % 87.7 H Seg Neuts % (Manual) Lymphocytes % (Manual) Lymphocytes # (Manual) PT INR POC ABG pH POC ABG pO2 ABG pO2 ABG HCO3 ABG O2 Saturation ABG Base Excess ABG Hemoglobin VBG pH Oxyhemoglobin Sodium Potassium Chloride Carbon Dioxide BUN Creatinine Glucose POC Glucose 282 H 265 H Calcium Iron TIBC AST Alkaline Phosphatase Total Creatine Kinase Troponin T Total Protein Albumin LDL Cholesterol Direct HDL Cholesterol Vitamin B12 Folate Urine Creatinine Salicylates Acetaminophen 12/04/18 12/04/18 12/04/18 08:01 08:01 08:01 WBC RBC Hgb Hct MCV MCH RDW Plt Count Lymph % (Auto) Lymph # Seg Neutrophils % Seg Neuts % (Manual) Lymphocytes % (Manual) Lymphocytes # (Manual) PT 17.0 H INR 1.42 H POC ABG pH POC ABG pO2 ABG pO2 ABG HCO3 ABG O2 Saturation ABG Base Excess ABG Hemoglobin VBG pH Oxyhemoglobin Sodium Potassium Chloride 114.6 H Carbon Dioxide 20 L BUN 62 H Creatinine 2.0 H Glucose 266 H POC Glucose Calcium 8.3 L Iron 20 L TIBC 168 L AST Alkaline Phosphatase 292 H Total Creatine Kinase Troponin T Total Protein 5.2 L Albumin 2.1 L LDL Cholesterol Direct HDL Cholesterol Vitamin B12 Folate 7.24 L Urine Creatinine Salicylates Acetaminophen 12/04/18 12/04/18 12/04/18 11:59 17:59 22:59 WBC RBC Hgb Hct MCV MCH RDW Plt Count Lymph % (Auto) Lymph # Seg Neutrophils % Seg Neuts % (Manual) Lymphocytes % (Manual) Lymphocytes # (Manual) PT INR POC ABG pH POC ABG pO2 ABG pO2 ABG HCO3 ABG O2 Saturation ABG Base Excess ABG Hemoglobin VBG pH Oxyhemoglobin Sodium Potassium Chloride Carbon Dioxide BUN Creatinine Glucose POC Glucose 267 H 226 H 341 H Calcium Iron TIBC AST Alkaline Phosphatase Total Creatine Kinase Troponin T Total Protein Albumin LDL Cholesterol Direct HDL Cholesterol Vitamin B12 Folate Urine Creatinine Salicylates Acetaminophen 12/05/18 12/05/18 12/05/18 03:42 03:42 03:42 WBC RBC 2.89 L Hgb 10.8 L Hct 32.2 L MCV 111 H MCH 37 H RDW 16.8 H Plt Count 47 L Lymph % (Auto) 5.5 L Lymph # 0.3 L Seg Neutrophils % 89.9 H Seg Neuts % (Manual) Lymphocytes % (Manual) Lymphocytes # (Manual) PT INR POC ABG pH POC ABG pO2 ABG pO2 ABG HCO3 ABG O2 Saturation ABG Base Excess ABG Hemoglobin VBG pH Oxyhemoglobin Sodium 146 H Potassium Chloride 113.3 H Carbon Dioxide 19 L BUN 55 H Creatinine 1.8 H Glucose 268 H POC Glucose Calcium 8.3 L Iron TIBC AST Alkaline Phosphatase Total Creatine Kinase Troponin T Total Protein Albumin LDL Cholesterol Direct HDL Cholesterol Vitamin B12 1798 H Folate Urine Creatinine Salicylates Acetaminophen 12/05/18 12/05/18 12/05/18 04:14 18:38 23:59 WBC RBC Hgb Hct MCV MCH RDW Plt Count Lymph % (Auto) Lymph # Seg Neutrophils % Seg Neuts % (Manual) Lymphocytes % (Manual) Lymphocytes # (Manual) PT INR POC ABG pH POC ABG pO2 ABG pO2 75.1 L ABG HCO3 ABG O2 Saturation ABG Base Excess -4.0 L ABG Hemoglobin 8.2 L VBG pH Oxyhemoglobin 94.0 L Sodium Potassium Chloride Carbon Dioxide BUN Creatinine Glucose POC Glucose 150 H 215 H Calcium Iron TIBC AST Alkaline Phosphatase Total Creatine Kinase Troponin T Total Protein Albumin LDL Cholesterol Direct HDL Cholesterol Vitamin B12 Folate Urine Creatinine Salicylates Acetaminophen 12/06/18 12/06/18 12/06/18 04:02 04:02 04:44 WBC RBC 2.88 L Hgb 10.6 L Hct 32.8 L MCV 114 H MCH 37 H RDW 17.3 H Plt Count 59 L Lymph % (Auto) 7.1 L Lymph # 0.4 L Seg Neutrophils % 87.9 H Seg Neuts % (Manual) Lymphocytes % (Manual) Lymphocytes # (Manual) PT INR POC ABG pH POC ABG pO2 ABG pO2 ABG HCO3 ABG O2 Saturation ABG Base Excess -2.7 L ABG Hemoglobin 10.5 L VBG pH Oxyhemoglobin 94.7 L Sodium 146 H Potassium Chloride 111.9 H Carbon Dioxide 21 L BUN 52 H Creatinine 1.7 H Glucose 254 H POC Glucose Calcium 8.3 L Iron TIBC AST Alkaline Phosphatase Total Creatine Kinase Troponin T Total Protein Albumin LDL Cholesterol Direct HDL Cholesterol Vitamin B12 Folate Urine Creatinine Salicylates Acetaminophen 12/06/18 12/06/18 12/06/18 05:59 12:08 17:52 WBC RBC Hgb Hct MCV MCH RDW Plt Count Lymph % (Auto) Lymph # Seg Neutrophils % Seg Neuts % (Manual) Lymphocytes % (Manual) Lymphocytes # (Manual) PT INR POC ABG pH POC ABG pO2 ABG pO2 ABG HCO3 ABG O2 Saturation ABG Base Excess ABG Hemoglobin VBG pH Oxyhemoglobin Sodium Potassium Chloride Carbon Dioxide BUN Creatinine Glucose POC Glucose 270 H 119 H 158 H Calcium Iron TIBC AST Alkaline Phosphatase Total Creatine Kinase Troponin T Total Protein Albumin LDL Cholesterol Direct HDL Cholesterol Vitamin B12 Folate Urine Creatinine Salicylates Acetaminophen 12/07/18 12/07/18 12/07/18 00:00 02:40 02:40 WBC RBC 2.78 L Hgb 10.2 L Hct 31.5 L MCV 113 H MCH 37 H RDW 16.7 H Plt Count 57 L Lymph % (Auto) Lymph # Seg Neutrophils % Seg Neuts % (Manual) 99.0 H Lymphocytes % (Manual) 1.0 L Lymphocytes # (Manual) 0.1 L PT INR POC ABG pH POC ABG pO2 ABG pO2 ABG HCO3 ABG O2 Saturation ABG Base Excess ABG Hemoglobin VBG pH Oxyhemoglobin Sodium 147 H Potassium 3.4 L Chloride 111.6 H Carbon Dioxide 19 L BUN 50 H Creatinine 1.6 H Glucose 243 H POC Glucose 203 H Calcium Iron TIBC AST Alkaline Phosphatase Total Creatine Kinase Troponin T Total Protein Albumin LDL Cholesterol Direct HDL Cholesterol Vitamin B12 Folate Urine Creatinine Salicylates Acetaminophen 12/07/18 12/07/18 12/07/18 05:27 11:49 17:30 WBC RBC Hgb Hct MCV MCH RDW Plt Count Lymph % (Auto) Lymph # Seg Neutrophils % Seg Neuts % (Manual) Lymphocytes % (Manual) Lymphocytes # (Manual) PT INR POC ABG pH POC ABG pO2 ABG pO2 ABG HCO3 ABG O2 Saturation ABG Base Excess ABG Hemoglobin VBG pH Oxyhemoglobin Sodium Potassium Chloride Carbon Dioxide BUN Creatinine Glucose POC Glucose 299 H 249 H 205 H Calcium Iron TIBC AST Alkaline Phosphatase Total Creatine Kinase Troponin T Total Protein Albumin LDL Cholesterol Direct HDL Cholesterol Vitamin B12 Folate Urine Creatinine Salicylates Acetaminophen 12/08/18 12/08/18 12/08/18 00:09 03:43 05:09 WBC RBC Hgb Hct MCV MCH RDW Plt Count Lymph % (Auto) Lymph # Seg Neutrophils % Seg Neuts % (Manual) Lymphocytes % (Manual) Lymphocytes # (Manual) PT INR POC ABG pH POC ABG pO2 ABG pO2 ABG HCO3 ABG O2 Saturation ABG Base Excess ABG Hemoglobin VBG pH Oxyhemoglobin Sodium Potassium Chloride 110.9 H Carbon Dioxide 21 L BUN 53 H Creatinine 1.6 H Glucose 311 H POC Glucose 312 H 363 H Calcium Iron TIBC AST Alkaline Phosphatase Total Creatine Kinase Troponin T Total Protein Albumin LDL Cholesterol Direct HDL Cholesterol Vitamin B12 Folate Urine Creatinine Salicylates Acetaminophen 12/08/18 12/08/18 12/08/18 07:35 12:18 17:51 WBC RBC Hgb Hct MCV MCH RDW Plt Count Lymph % (Auto) Lymph # Seg Neutrophils % Seg Neuts % (Manual) Lymphocytes % (Manual) Lymphocytes # (Manual) PT INR POC ABG pH POC ABG pO2 ABG pO2 ABG HCO3 ABG O2 Saturation ABG Base Excess ABG Hemoglobin VBG pH Oxyhemoglobin Sodium Potassium Chloride Carbon Dioxide BUN Creatinine Glucose POC Glucose 347 H 332 H 198 H Calcium Iron TIBC AST Alkaline Phosphatase Total Creatine Kinase Troponin T Total Protein Albumin LDL Cholesterol Direct HDL Cholesterol Vitamin B12 Folate Urine Creatinine Salicylates Acetaminophen 12/08/18 12/09/18 12/09/18 23:42 04:38 05:33 WBC RBC Hgb Hct MCV MCH RDW Plt Count Lymph % (Auto) Lymph # Seg Neutrophils % Seg Neuts % (Manual) Lymphocytes % (Manual) Lymphocytes # (Manual) PT INR POC ABG pH POC ABG pO2 ABG pO2 ABG HCO3 ABG O2 Saturation ABG Base Excess ABG Hemoglobin VBG pH Oxyhemoglobin Sodium Potassium Chloride 111.5 H Carbon Dioxide BUN 55 H Creatinine 1.7 H Glucose 246 H POC Glucose 226 H 271 H Calcium 8.2 L Iron TIBC AST Alkaline Phosphatase Total Creatine Kinase Troponin T Total Protein Albumin LDL Cholesterol Direct HDL Cholesterol Vitamin B12 Folate Urine Creatinine Salicylates Acetaminophen 12/09/18 12/09/18 12/09/18 12:08 18:13 20:03 WBC RBC Hgb Hct MCV MCH RDW Plt Count Lymph % (Auto) Lymph # Seg Neutrophils % Seg Neuts % (Manual) Lymphocytes % (Manual) Lymphocytes # (Manual) PT INR POC ABG pH POC ABG pO2 ABG pO2 ABG HCO3 ABG O2 Saturation ABG Base Excess ABG Hemoglobin VBG pH Oxyhemoglobin Sodium Potassium Chloride Carbon Dioxide BUN Creatinine Glucose POC Glucose 255 H 214 H 195 H Calcium Iron TIBC AST Alkaline Phosphatase Total Creatine Kinase Troponin T Total Protein Albumin LDL Cholesterol Direct HDL Cholesterol Vitamin B12 Folate Urine Creatinine Salicylates Acetaminophen 12/09/18 12/10/18 12/10/18 23:32 04:40 05:08 WBC RBC Hgb Hct MCV MCH RDW Plt Count Lymph % (Auto) Lymph # Seg Neutrophils % Seg Neuts % (Manual) Lymphocytes % (Manual) Lymphocytes # (Manual) PT INR POC ABG pH POC ABG pO2 ABG pO2 ABG HCO3 ABG O2 Saturation ABG Base Excess ABG Hemoglobin 10.6 L VBG pH Oxyhemoglobin 94.8 L Sodium Potassium 3.5 L Chloride 111.3 H Carbon Dioxide BUN 53 H Creatinine 1.6 H Glucose 125 H POC Glucose 140 H Calcium 8.1 L Iron TIBC AST Alkaline Phosphatase Total Creatine Kinase Troponin T Total Protein Albumin LDL Cholesterol Direct HDL Cholesterol Vitamin B12 Folate Urine Creatinine Salicylates Acetaminophen 12/10/18 12/10/18 12/10/18 05:27 12:40 17:34 WBC RBC Hgb Hct MCV MCH RDW Plt Count Lymph % (Auto) Lymph # Seg Neutrophils % Seg Neuts % (Manual) Lymphocytes % (Manual) Lymphocytes # (Manual) PT INR POC ABG pH POC ABG pO2 ABG pO2 ABG HCO3 ABG O2 Saturation ABG Base Excess ABG Hemoglobin VBG pH Oxyhemoglobin Sodium Potassium Chloride Carbon Dioxide BUN Creatinine Glucose POC Glucose 133 H 230 H 165 H Calcium Iron TIBC AST Alkaline Phosphatase Total Creatine Kinase Troponin T Total Protein Albumin LDL Cholesterol Direct HDL Cholesterol Vitamin B12 Folate Urine Creatinine Salicylates Acetaminophen 12/10/18 12/11/18 12/11/18 23:28 05:36 06:42 WBC 3.5 L RBC 2.77 L Hgb 10.2 L Hct 31.5 L MCV 114 H MCH 37 H RDW 17.4 H Plt Count 67 L Lymph % (Auto) 9.4 L Lymph # 0.3 L Seg Neutrophils % 84.6 H Seg Neuts % (Manual) Lymphocytes % (Manual) Lymphocytes # (Manual) PT INR POC ABG pH POC ABG pO2 ABG pO2 ABG HCO3 ABG O2 Saturation ABG Base Excess ABG Hemoglobin VBG pH Oxyhemoglobin Sodium Potassium Chloride Carbon Dioxide BUN Creatinine Glucose POC Glucose 227 H 222 H Calcium Iron TIBC AST Alkaline Phosphatase Total Creatine Kinase Troponin T Total Protein Albumin LDL Cholesterol Direct HDL Cholesterol Vitamin B12 Folate Urine Creatinine Salicylates Acetaminophen 12/11/18 12/11/18 12/11/18 06:42 12:07 16:47 WBC RBC Hgb Hct MCV MCH RDW Plt Count Lymph % (Auto) Lymph # Seg Neutrophils % Seg Neuts % (Manual) Lymphocytes % (Manual) Lymphocytes # (Manual) PT INR POC ABG pH POC ABG pO2 ABG pO2 ABG HCO3 ABG O2 Saturation ABG Base Excess ABG Hemoglobin VBG pH Oxyhemoglobin Sodium Potassium Chloride 111.2 H Carbon Dioxide BUN 64 H Creatinine 2.1 H Glucose 173 H POC Glucose 116 H 128 H Calcium Iron TIBC AST 45 H Alkaline Phosphatase 291 H Total Creatine Kinase Troponin T Total Protein 5.5 L Albumin 2.1 L LDL Cholesterol Direct HDL Cholesterol Vitamin B12 Folate Urine Creatinine Salicylates Acetaminophen 12/11/18 12/12/18 12/12/18 23:16 05:30 06:23 WBC RBC Hgb Hct MCV MCH RDW Plt Count Lymph % (Auto) Lymph # Seg Neutrophils % Seg Neuts % (Manual) Lymphocytes % (Manual) Lymphocytes # (Manual) PT INR POC ABG pH POC ABG pO2 ABG pO2 ABG HCO3 ABG O2 Saturation ABG Base Excess ABG Hemoglobin VBG pH Oxyhemoglobin Sodium Potassium Chloride 109.6 H Carbon Dioxide 20 L BUN 74 H Creatinine 2.6 H Glucose 144 H POC Glucose 161 H 147 H Calcium 8.3 L Iron TIBC AST Alkaline Phosphatase Total Creatine Kinase Troponin T Total Protein Albumin LDL Cholesterol Direct HDL Cholesterol Vitamin B12 Folate Urine Creatinine Salicylates Acetaminophen
[2018-12-12] MEDS: SODIUM CHLORIDE FLUSH SYRINGE 10 ML IV SCH (12:40)
--- NOTE | 2018-12-12 12:48 | Progress Note ---
<MAGI LYMAN - Last Filed: 12/12/18 12:46> Assessment and Plan Altered mental status Respiratory failure Thrombocytopenia Hx of CVA Non-specific troponin Cardiomyopathy, EF 15-20% Moderate to severe MR and TR Renal failure HIV For persistent tachcyardia we will add AV pia blocking agents when blood pressure allows. Subjective Date of service: 12/12/18 Principal diagnosis: low plt Interval history: Sinus tachycardia persists. Low normal BP of 103/66. Objective Vital Signs Temp Pulse Pulse Pulse Pulse Resp Resp 12/12/18 12:07 92 H 30 H 12/12/18 12:00 117 H 12/12/18 08:36 116 H 12/12/18 08:28 120 H 12/12/18 08:00 97.3 F L 119 H 12/12/18 07:00 119 H 18 12/12/18 06:00 117 H 12/12/18 05:00 114 H 12/12/18 04:24 118 H 12/12/18 04:01 119 H 26 H 12/12/18 04:00 97.6 F 12/12/18 03:53 97.6 F 12/12/18 03:22 121 H 12/12/18 03:16 122 H 122 H 12/12/18 03:01 120 H 18 12/12/18 02:00 97 H 18 12/12/18 01:00 120 H 25 H 12/12/18 00:03 117 H 12/12/18 00:00 95 H 12/11/18 23:49 120 H 12/11/18 23:46 120 H 120 H 12/11/18 23:39 97.6 F 12/11/18 23:17 112 H 12/11/18 23:00 113 H 12/11/18 22:00 117 H 18 12/11/18 21:01 120 H 22 12/11/18 20:14 108 H 12/11/18 20:00 98.4 F 119 H 114 H 12/11/18 19:43 89 12/11/18 19:00 86 12/11/18 18:00 116 H 22 12/11/18 17:00 123 H 12/11/18 16:23 114 H 121 H 12/11/18 16:00 97.6 F 120 H 114 H 12/11/18 15:00 111 H 16 12/11/18 14:00 119 H 18 12/11/18 13:00 120 H 19 12/11/18 12:49 119 H 22 BP Pulse Ox 12/12/18 12:07 12/12/18 12:00 103/66 98 12/12/18 08:36 95/62 100 12/12/18 08:28 12/12/18 08:00 95/62 100 12/12/18 07:00 110/67 98 12/12/18 06:00 110/72 99 12/12/18 05:00 101/67 98 12/12/18 04:24 116/76 98 12/12/18 04:01 107/72 98 12/12/18 04:00 12/12/18 03:53 12/12/18 03:22 12/12/18 03:16 99 12/12/18 03:01 107/72 98 12/12/18 02:00 106/68 95 12/12/18 01:00 110/69 95 12/12/18 00:03 104/62 96 12/12/18 00:00 104/62 94 12/11/18 23:49 12/11/18 23:46 99 12/11/18 23:39 12/11/18 23:17 104/61 97 12/11/18 23:00 104/61 95 12/11/18 22:00 102/64 95 12/11/18 21:01 112/63 94 12/11/18 20:14 12/11/18 20:00 104/69 94 12/11/18 19:43 99/61 96 12/11/18 19:00 99/61 97 12/11/18 18:00 102/64 95 12/11/18 17:00 102/62 100 12/11/18 16:23 100/66 100 12/11/18 16:00 100/66 99 12/11/18 15:00 104/67 100 12/11/18 14:00 105/64 100 12/11/18 13:00 101/69 100 12/11/18 12:49 - Physical Examination General: Other (on the vent) HEENT: Positive: PERRL Neck: Positive: trachea midline Cardiac: Positive: Tachycardia Neuro: Positive: Other (unresponsive, on the vent) Abdomen: Positive: Soft Skin: Positive: Clear Extremities: Absent: edema - Labs and Meds Comprehensive Metabolic Panel 12/12/18 Range/Units 06:23 Sodium 141 (137-145) mmol/L Potassium 4.1 (3.6-5.0) mmol/L Chloride 109.6 H (98-107) mmol/L Carbon Dioxide 20 L (22-30) mmol/L BUN 74 H (9-20) mg/dL Creatinine 2.6 H (0.8-1.5) mg/dL Glucose 144 H (75-100) mg/dL Calcium 8.3 L (8.4-10.2) mg/dL - Imaging and Cardiology EKG: report reviewed <CHRISSY VARGAS - Last Filed: 12/12/18 13:36> Assessment and Plan I have seen and evaluated the patient and agree with the assessment and plan. Continue supportive care at thsi time. When blood pressure allows, recommend goal directed medical therapy for treatment of cardiomyopathy with EF 15-20%. Objective Vital Signs Temp Pulse Pulse Pulse Pulse Resp Resp 12/12/18 13:00 124 H 26 H 12/12/18 12:07 92 H 30 H 12/12/18 12:01 121 H 24 12/12/18 12:00 117 H 12/12/18 11:00 121 H 12/12/18 10:00 118 H 18 12/12/18 09:00 117 H 17 12/12/18 08:36 116 H 12/12/18 08:28 120 H 22 12/12/18 08:00 97.3 F L 119 H 17 12/12/18 07:00 119 H 18 12/12/18 06:00 117 H 16 12/12/18 05:00 114 H 12/12/18 04:24 118 H 12/12/18 04:01 119 H 26 H 12/12/18 04:00 97.6 F 12/12/18 03:53 97.6 F 12/12/18 03:22 121 H 12/12/18 03:16 122 H 122 H 21 12/12/18 03:01 120 H 18 12/12/18 02:00 97 H 18 12/12/18 01:00 120 H 25 H 12/12/18 00:03 117 H 12/12/18 00:00 95 H 20 12/11/18 23:49 120 H 12/11/18 23:46 120 H 120 H 20 12/11/18 23:39 97.6 F 12/11/18 23:17 112 H 12/11/18 23:00 113 H 21 12/11/18 22:00 117 H 18 12/11/18 21:01 120 H 22 12/11/18 20:14 108 H 22 12/11/18 20:00 98.4 F 119 H 114 H 21 12/11/18 19:43 89 12/11/18 19:00 86 17 12/11/18 18:00 116 H 22 12/11/18 17:00 123 H 20 12/11/18 16:23 114 H 121 H 22 12/11/18 16:00 97.6 F 120 H 114 H 21 12/11/18 15:00 111 H 16 12/11/18 14:00 119 H 18 BP Pulse Ox 12/12/18 13:00 108/75 98 12/12/18 12:07 12/12/18 12:01 103/66 96 12/12/18 12:00 103/66 98 12/12/18 11:00 110/67 98 12/12/18 10:00 102/65 96 12/12/18 09:00 104/69 99 12/12/18 08:36 95/62 100 12/12/18 08:28 12/12/18 08:00 95/62 100 12/12/18 07:00 110/67 98 12/12/18 06:00 110/72 99 12/12/18 05:00 101/67 98 12/12/18 04:24 116/76 98 12/12/18 04:01 107/72 98 12/12/18 04:00 12/12/18 03:53 12/12/18 03:22 12/12/18 03:16 99 12/12/18 03:01 107/72 98 12/12/18 02:00 106/68 95 12/12/18 01:00 110/69 95 12/12/18 00:03 104/62 96 12/12/18 00:00 104/62 94 12/11/18 23:49 12/11/18 23:46 99 12/11/18 23:39 12/11/18 23:17 104/61 97 12/11/18 23:00 104/61 95 12/11/18 22:00 102/64 95 12/11/18 21:01 112/63 94 12/11/18 20:14 12/11/18 20:00 104/69 94 12/11/18 19:43 99/61 96 12/11/18 19:00 99/61 97 12/11/18 18:00 102/64 95 12/11/18 17:00 102/62 100 12/11/18 16:23 100/66 100 12/11/18 16:00 100/66 99 12/11/18 15:00 104/67 100 12/11/18 14:00 105/64 100 - Labs and Meds Comprehensive Metabolic Panel 12/12/18 Range/Units 06:23 Sodium 141 (137-145) mmol/L Potassium 4.1 (3.6-5.0) mmol/L Chloride 109.6 H (98-107) mmol/L Carbon Dioxide 20 L (22-30) mmol/L BUN 74 H (9-20) mg/dL Creatinine 2.6 H (0.8-1.5) mg/dL Glucose 144 H (75-100) mg/dL Calcium 8.3 L (8.4-10.2) mg/dL
[2018-12-12] MEDS: LANTUS SUB-Q SCH (12:49)
[2018-12-13] MEDS: LANTUS SUB-Q SCH ×2 (02:10→12:36)
[2018-12-13] MEDS: HumaLOG SUB-Q SCH ×3 (02:11→12:35)
[2018-12-13 06:09] LABS: Calcium 8.5 mg/dL (8.4-10.2)
[2018-12-13] MEDS: SODIUM CHLORIDE FLUSH SYRINGE 10 ML IV SCH ×2 (06:09→10:35)
[2018-12-13] MEDS: DUONEB *Not for PRN Use IH SCH ×2 (07:25→11:12)
--- NOTE | 2018-12-13 07:46 | Hem/Onc Progress Note ---
Assessment and Plan 1. h/o Thrombocytopenia. The patient has multiple issues, which include HIV/immunosuppression medications. 2. At this time, there is no active bleeding. 3. h/o Unresponsive. 4. h/o Leukopenia. 5. h/o Macrocytosis. This may be medication related. 6. History of diabetes. 7. History of hypertension. 8. History of cerebrovascular accident. 9. History of dementia. 10. Chronic obstructive pulmonary disease. 11. Renal impairment. 12. Metabolic encephalopathy. 13. h/o Intubation. Respiratory support. 14. I will follow the patient during inpatient stay. We will follow the patient. B12 is normal. ID following for HIV s/p plt transfusion ID following for LP on folic acid - as folate was low awake - still on vent - sometimes moves legs pt 67 - follow as per notes - hospice being looked into - Patient Problems (1) Thrombocytopenia Current Visit: Yes Status: Acute Subjective Date of service: 12/13/18 Principal diagnosis: low plt Interval history: awake - on vent Objective - Exam Narrative Exam: Pain - not verbal General appearance - not verbal - intubated Performance status complete dependence Eyes - no icterus ENT - no bleeding LNs cervical - not palpable Neck - no LN Respiratory Normal Breath sounds - CTA anteriorly CVS S1 S2 + Extremities no edema General GI Soft Rectal deferred male - deferred Skin warm Musculoskeletal moves limbs sometimes Neurologically non verbal - awake - Constitutional Vitals: Last Vital Signs Temp 98.7 F 12/13/18 04:00 Pulse 121 H 12/13/18 07:39 Resp 26 H 12/13/18 07:25 BP 104/73 12/13/18 07:39 Pulse Ox 100 12/13/18 07:39 - Labs Lab Results: Laboratory Results - last 24 hr 12/12/18 12/12/18 12/12/18 12:12 18:34 23:43 Sodium Potassium Chloride Carbon Dioxide Anion Gap BUN Creatinine Estimated GFR BUN/Creatinine Ratio Glucose POC Glucose 225 H 73 106 H Calcium 12/13/18 12/13/18 05:10 05:42 Sodium 146 H Potassium 3.8 Chloride 111.0 H Carbon Dioxide 23 Anion Gap 16 BUN 81 H Creatinine 2.8 H Estimated GFR 27 BUN/Creatinine Ratio 29 Glucose 142 H POC Glucose 162 H Calcium 8.5 Medications & Allergies - Medications Allergies/Adverse Reactions: Allergies No Known Allergies Allergy (Unverified 03/29/16 00:43) Home Medications: Home Medications Medication Instructions Recorded Confirmed Last Taken Type Aspirin [Aspirin BABY CHEW TAB] 81 mg PO QDAY #30 tab.chew 11/15/17 11/29/18 Unknown Rx Amlodipine Besylate 10 mg PO QDAY 05/21/18 11/29/18 Unknown History Carvedilol 6.25 mg PO BID 05/21/18 11/29/18 Unknown History Isentress 400 mg PO Q12HR 05/21/18 11/29/18 Unknown History Rosuvastatin Calcium 10 mg PO DAILY 05/21/18 11/29/18 Unknown History Memantine [Namenda] 5 mg PO QDAY #30 tablet 11/01/18 11/29/18 Unknown Rx Albuterol Sulfate [Albuterol 0.63% 0.63 mg IH TID PRN 30 Days ml 11/07/18 11/29/18 Unknown Rx NEBS] AtorvaSTATin [Lipitor] 20 mg PO QDAY #30 tablet 11/07/18 11/29/18 Unknown Rx Famotidine [Pepcid] 10 mg PO BID #60 tablet 11/07/18 11/29/18 Unknown Rx Ipratropium/Albuterol Sulfate 1 ampul IH Q6HR 30 Days ampul.neb 11/07/18 11/29/18 Unknown Rx [DUONEB *Not for PRN Use*] Tamsulosin [Flomax] 0.4 mg PO QHS #30 capsule 11/07/18 11/29/18 Unknown Rx Zidovudine 300 mg PO DAILY 11/09/18 11/29/18 Unknown History Insulin Regular, Human [HumuLIN R] 0 unit SQ AC #1 vial 11/12/18 11/29/18 Unknown Rx Active Medications: Generic Name Dose Route Start Last Admin Trade Name Freq PRN Reason Stop Dose Admin Abacavir Sulfate 600 mg 11/30/18 16:00 12/12/18 09:46 Ziagen PO 600 mg DAILY KEN Administration Albuterol 2.5 mg 11/30/18 00:17 Proventil IH Q4HRT PRN Shortness Of Breath Albuterol/Ipratropium 1 ampul 11/30/18 08:00 12/13/18 07:25 Duoneb *Not For Prn Use* IH 1 ampul QIDRT KEN Administration Lipase/Protease/Amylase 1 each 12/03/18 10:42 Pancreazmahendra Manning 10,500 Unit FEEDTUBE PRN PRN For Clogged Feeding Tube Docusate Sodium 100 mg 12/08/18 13:00 12/12/18 21:57 Colace PO 100 mg BID KEN Administration Famotidine 10 mg 12/04/18 11:00 12/12/18 21:57 Pepcid PO 10 mg BID KEN Administration Fentanyl 50 mcg 12/04/18 17:28 12/09/18 23:53 Sublimaze IV 50 mcg Q2H PRN Administration INCREASED AGITATION Folic Acid 1 mg 12/04/18 12:00 12/12/18 09:45 Folvite PO 1 mg QDAY KEN Administration Insulin Glargine 12 units 12/09/18 12:00 12/13/18 02:10 Lantus SUB-Q 12 units Q12H KEN Administration Insulin Human Lispro 0 unit 11/30/18 07:00 12/13/18 06:08 Humalog SUB-Q 3 unit Q6HR KEN Administration Protocol Lamivudine 150 mg 12/12/18 10:00 12/12/18 09:53 Epivir PO 150 mg QDAY KEN Administration Metoclopramide HCl 5 mg 11/30/18 00:22 Reglan IV Q6H PRN Nausea And Vomiting Ondansetron HCl 4 mg 11/30/18 00:06 Zofran IV Q8H PRN Nausea And Vomiting Raltegravir 400 mg 11/30/18 16:00 12/12/18 21:58 Isentress PO 400 mg BID KEN Administration Simple Syrup 15 ml 12/03/18 10:42 Simple Syrup FEEDTUBE PRN PRN Hypoglycemia Simple Syrup 30 ml 12/03/18 10:42 Simple Syrup FEEDTUBE PRN PRN Hypoglycemia Sodium Bicarbonate 325 mg 12/03/18 10:42 Sodium Bicarbonate FEEDTUBE PRN PRN For Clogged Feeding Tube Sodium Chloride 10 ml 11/30/18 10:00 12/13/18 06:09 Sodium Chloride Flush Syringe 10 Ml IV 10 ml BID KEN Administration Sodium Chloride 10 ml 11/30/18 00:06 Sodium Chloride Flush Syringe 10 Ml IV PRN PRN LINE FLUSH Zidovudine 300 mg 11/30/18 16:00 12/12/18 21:58 Retrovir PO 300 mg BID KEN Administration
--- NOTE | 2018-12-13 09:37 | Progress Note ---
Assessment and Plan 1. Acute kidney injury: Vasomotor CONNIE superimposed on CKD in the setting of hypotension. Renal US negative for hydro. Creatinine level continue to increase likely due to tachycardia and hypotension. Monitor renal function. Renal prognosis is guarded. Avoid nephrotoxic agents. Meds dosage based on GFR. 2. FEN: Hypokalemia, K level is better. Hypernatremia, improved. Monitor lytes. 3. Acute hypoxic respiratory failure: Intubated on vent. 4. Acute Metabolic Encephalopathy. 5. Elevated troponin. 6. Macrocytic anemia: POA. 7. Type 2 DM. To hospice later today. Subjective Date of service: 12/13/18 Principal diagnosis: low plt Interval history: Patient was seen and examined at the bedside. Objective - Vital Signs Vital signs: Vital Signs - 12hr 12/12/18 12/12/18 12/12/18 22:00 23:00 23:11 Temperature Pulse Rate 118 H 120 H 119 H Pulse Rate [ Anterior Bilateral Throughout] Pulse Rate [ From Monitor] Respiratory 25 H 27 H Rate Respiratory Rate [Anterior Bilateral Throughout] Blood Pressure 107/63 110/67 110/67 O2 Sat by Pulse 98 97 100 Oximetry 12/13/18 12/13/18 12/13/18 00:00 00:05 01:00 Temperature 97.4 F L Pulse Rate 121 H 122 H 121 H Pulse Rate [ Anterior Bilateral Throughout] Pulse Rate [ 123 H From Monitor] Respiratory 20 26 H 15 Rate Respiratory Rate [Anterior Bilateral Throughout] Blood Pressure 106/61 106/61 100/60 O2 Sat by Pulse 100 100 98 Oximetry 12/13/18 12/13/18 12/13/18 02:00 03:00 03:32 Temperature Pulse Rate 121 H 122 H 97 H Pulse Rate [ Anterior Bilateral Throughout] Pulse Rate [ From Monitor] Respiratory 19 24 Rate Respiratory Rate [Anterior Bilateral Throughout] Blood Pressure 109/67 110/72 110/72 O2 Sat by Pulse 100 99 99 Oximetry 12/13/18 12/13/18 12/13/18 04:00 05:00 06:00 Temperature 98.7 F Pulse Rate 118 H 118 H 118 H Pulse Rate [ Anterior Bilateral Throughout] Pulse Rate [ 120 H From Monitor] Respiratory 16 23 21 Rate Respiratory Rate [Anterior Bilateral Throughout] Blood Pressure 106/69 109/73 108/66 O2 Sat by Pulse 100 100 99 Oximetry 12/13/18 12/13/1819 07:01 07:25 07:39 Temperature Pulse Rate 121 H 121 H Pulse Rate [ 96 H Anterior Bilateral Throughout] Pulse Rate [ From Monitor] Respiratory 28 H Rate Respiratory 26 H Rate [Anterior Bilateral Throughout] Blood Pressure 104/73 104/73 O2 Sat by Pulse 100 100 Oximetry 12/13/18 12/13/18 12/13/18 08:00 08:01 09:00 Temperature 98.6 F Pulse Rate 121 H 93 H Pulse Rate [ Anterior Bilateral Throughout] Pulse Rate [ From Monitor] Respiratory 25 H 26 H Rate Respiratory Rate [Anterior Bilateral Throughout] Blood Pressure 111/72 103/63 O2 Sat by Pulse 100 100 Oximetry - General Appearance General appearance: well-developed, appears stated age, intubated, other (on vent) EENT: ATNC, PERRL Neck: supple Respiratory: Present: Clear to Ascultation Cardiology: tachycardia, S1S2, no murmurs Gastrointestinal: normoactive bowel sounds, no tenderness Integumentary: other (LE dressing noted) Neurologic: obtunded Musculoskeletal: other (Trace LE edema noted) - Lab 12/11/18 06:42 12/13/18 05:10 Most recent lab results ABG pH 7.440 pH Units (7.350-7.450) 12/10/18 04:40 ABG pCO2 34.0 mm Hg 12/10/18 04:40 ABG pO2 80.8 mm Hg (80.0-90.0) 12/10/18 04:40 ABG HCO3 22.6 mmol/L (20.0-26.0) 12/10/18 04:40 ABG O2 Saturation 96.9 % (95.0-99.0) 12/10/18 04:40 Calcium 8.5 mg/dL (8.4-10.2) 12/13/18 05:10 Phosphorus 2.80 mg/dL (2.5-4.5) 12/04/18 08:01 Magnesium 2.10 mg/dL (1.7-2.3) 12/04/18 08:01 173.8 mg/dL (0.1-20.0) H 11/30/18 14:20 18 mmol/L 11/30/18 14:20 Medications & Allergies - Medications Allergies/Adverse Reactions: Allergies No Known Allergies Allergy (Unverified 03/29/16 00:43) Home Medications: Home Medications Medication Instructions Recorded Confirmed Last Taken Type ALBUTEROL NEB's [Proventil 0.083% 2.5 mg IH Q4HRT PRN nebu 12/13/18 Unknown Rx NEBS] Abacavir [Ziagen TAB] 600 mg PO DAILY tablet 12/13/18 Unknown Rx Docusate Sodium [Colace ORAL LIQ] 100 mg PO BID oral.liqd 12/13/18 Unknown Rx Famotidine [Pepcid] 10 mg PO BID tablet 12/13/18 Unknown Rx Folic Acid [Folvite] 1 mg PO QDAY tablet 12/13/18 Unknown Rx Insulin Glargine [Lantus VIAL] 12 units SUB-Q Q12H units 12/13/18 Unknown Rx Ipratropium/Albuterol Sulfate 1 ampul IH QIDRT ampul.neb 12/13/18 Unknown Rx [DUONEB *Not for PRN Use*] Lipase/Protease/Amylase [Pancreaze 1 each FEEDTUBE PRN PRN capsule 12/13/18 Unknown Rx 10,500 Unit] Lispro Insulin [HumaLOG] 0 unit SUB-Q Q6HR units 12/13/18 Unknown Rx Metoclopramide [Reglan INJ] 5 mg IV Q6H PRN vial 12/13/18 Unknown Rx Raltegravir Potassium [Isentress] 400 mg PO BID tablet 12/13/18 Unknown Rx Sodium Bicarbonate 325 mg FEEDTUBE PRN PRN tablet 12/13/18 Unknown Rx Zidovudine [Retrovir] 300 mg PO BID capsule 12/13/18 Unknown Rx Active Medications: Generic Name Dose Route Start Last Admin Trade Name Freq PRN Reason Stop Dose Admin Abacavir Sulfate 600 mg 11/30/18 16:00 12/12/18 09:46 Ziagen PO 600 mg DAILY KEN Administration Albuterol 2.5 mg 11/30/18 00:17 Proventil IH Q4HRT PRN Shortness Of Breath Albuterol/Ipratropium 1 ampul 11/30/18 08:00 12/13/18 07:25 Duoneb *Not For Prn Use* IH 1 ampul QIDRT KEN Administration Lipase/Protease/Amylase 1 each 12/03/18 10:42 Harleen Manning 10,500 Unit FEEDTUBE PRN PRN For Clogged Feeding Tube Docusate Sodium 100 mg 12/08/18 13:00 12/12/18 21:57 Colace PO 100 mg BID KEN Administration Famotidine 10 mg 12/04/18 11:00 12/12/18 21:57 Pepcid PO 10 mg BID KEN Administration Fentanyl 50 mcg 12/04/18 17:28 12/09/18 23:53 Sublimaze IV 50 mcg Q2H PRN Administration INCREASED AGITATION Folic Acid 1 mg 12/04/18 12:00 12/12/18 09:45 Folvite PO 1 mg QDAY KEN Administration Insulin Glargine 12 units 12/09/18 12:00 12/13/18 02:10 Lantus SUB-Q 12 units Q12H KEN Administration Insulin Human Lispro 0 unit 11/30/18 07:00 12/13/18 06:08 Humalog SUB-Q 3 unit Q6HR KEN Administration Protocol Lamivudine 150 mg 12/12/18 10:00 12/12/18 09:53 Epivir PO 150 mg QDAY KEN Administration Metoclopramide HCl 5 mg 11/30/18 00:22 Reglan IV Q6H PRN Nausea And Vomiting Ondansetron HCl 4 mg 11/30/18 00:06 Zofran IV Q8H PRN Nausea And Vomiting Raltegravir 400 mg 11/30/18 16:00 12/12/18 21:58 Isentress PO 400 mg BID KEN Administration Simple Syrup 15 ml 12/03/18 10:42 Simple Syrup FEEDTUBE PRN PRN Hypoglycemia Simple Syrup 30 ml 12/03/18 10:42 Simple Syrup FEEDTUBE PRN PRN Hypoglycemia Sodium Bicarbonate 325 mg 12/03/18 10:42 Sodium Bicarbonate FEEDTUBE PRN PRN For Clogged Feeding Tube Sodium Chloride 10 ml 11/30/18 10:00 12/13/18 06:09 Sodium Chloride Flush Syringe 10 Ml IV 10 ml BID KEN Administration Sodium Chloride 10 ml 11/30/18 00:06 Sodium Chloride Flush Syringe 10 Ml IV PRN PRN LINE FLUSH Zidovudine 300 mg 11/30/18 16:00 12/12/18 21:58 Retrovir PO 300 mg BID KEN Administration
--- NOTE | 2018-12-13 09:59 | Progress Note ---
Assessment and Plan 73 y/o male who presents with altered mental state, hypothermia, renal failure and hypernatremia and trop leak 1. Continue supportive services but do agree with hospice therapy. Overall prognosis is very poor and patient's clinical state has progressively declined. CCT 31 minutes. Subjective Date of service: 12/13/18 Principal diagnosis: low plt Interval history: No acute events. Family has elected to go with [facility]. Will be leaving at 1300 today per CM Objective Vital Signs - 12hr 12/12/18 12/12/18 12/12/18 22:00 23:00 23:11 Temperature Pulse Rate 118 H 120 H 119 H Pulse Rate [ Anterior Bilateral Throughout] Pulse Rate [ From Monitor] Respiratory 25 H 27 H Rate Respiratory Rate [Anterior Bilateral Throughout] Blood Pressure 107/63 110/67 110/67 O2 Sat by Pulse 98 97 100 Oximetry 12/13/18 12/13/18 12/13/18 00:00 00:05 01:00 Temperature 97.4 F L Pulse Rate 121 H 122 H 121 H Pulse Rate [ Anterior Bilateral Throughout] Pulse Rate [ 123 H From Monitor] Respiratory 20 26 H 15 Rate Respiratory Rate [Anterior Bilateral Throughout] Blood Pressure 106/61 106/61 100/60 O2 Sat by Pulse 100 100 98 Oximetry 12/13/18 12/13/18 12/13/18 02:00 03:00 03:32 Temperature Pulse Rate 121 H 122 H 97 H Pulse Rate [ Anterior Bilateral Throughout] Pulse Rate [ From Monitor] Respiratory 19 24 Rate Respiratory Rate [Anterior Bilateral Throughout] Blood Pressure 109/67 110/72 110/72 O2 Sat by Pulse 100 99 99 Oximetry 12/13/18 12/13/18 12/13/18 04:00 05:00 06:00 Temperature 98.7 F Pulse Rate 118 H 118 H 118 H Pulse Rate [ Anterior Bilateral Throughout] Pulse Rate [ 120 H From Monitor] Respiratory 16 23 21 Rate Respiratory Rate [Anterior Bilateral Throughout] Blood Pressure 106/69 109/73 108/66 O2 Sat by Pulse 100 100 99 Oximetry 12/13/18 12/13/18 12/13/18 07:01 07:25 07:39 Temperature Pulse Rate 121 H 121 H Pulse Rate [ 96 H Anterior Bilateral Throughout] Pulse Rate [ From Monitor] Respiratory 28 H Rate Respiratory 26 H Rate [Anterior Bilateral Throughout] Blood Pressure 104/73 104/73 O2 Sat by Pulse 100 100 Oximetry 12/13/18 12/13/18 12/13/18 08:00 08:01 09:00 Temperature 98.6 F Pulse Rate 121 H 93 H Pulse Rate [ Anterior Bilateral Throughout] Pulse Rate [ From Monitor] Respiratory 25 H 26 H Rate Respiratory Rate [Anterior Bilateral Throughout] Blood Pressure 111/72 103/63 O2 Sat by Pulse 100 100 Oximetry Constitutional: other (critically ill on vent, awake, eyes open) Eyes: non-icteric ENT: oropharynx moist, other (intubated) Neck: supple Effort: normal Ascultation: Bilateral: clear, diminished breath sounds Percussion: Bilateral: not dull Cardiovascular: other (tachy, RR; no mrg) Gastrointestinal: normoactive bowel sounds, soft, non-tender, non-distended Extremities: no cyanosis, no edema, pink and warm Neurologic: other (eyes open, not following commands for me) Psychiatric: other (unable to assess) CBC and BMP: 12/11/18 06:42 12/13/18 05:10 ABG, PT/INR, D-dimer: ABG POC ABG pH 7.437 (7.35-7.45) 12/04/18 03:48 ABG pH 7.440 pH Units (7.350-7.450) 12/10/18 04:40 ABG pCO2 34.0 mm Hg 12/10/18 04:40 POC ABG pO2 82 (80-105) 12/04/18 03:48 ABG pO2 80.8 mm Hg (80.0-90.0) 12/10/18 04:40 POC ABG HCO3 19.3 (22-26 mml/L) 12/04/18 03:48 POC ABG Total CO2 20 (23-27mmol/L) 12/04/18 03:48 POC ABG O2 Sat 97 12/04/18 03:48 ABG O2 Saturation 96.9 % (95.0-99.0) 12/10/18 04:40 PT/INR, D-dimer PT 17.0 Sec. (12.2-14.9) H 12/04/18 08:01 INR 1.42 (0.87-1.13) H 12/04/18 08:01 Abnormal lab findings: Abnormal Labs 11/29/18 11/29/18 11/29/18 13:07 13:39 13:39 WBC 3.2 L RBC 2.76 L Hgb 10.4 L Hct 32.1 L MCV 116 H MCH 38 H RDW 17.5 H Plt Count 48 L Lymph % (Auto) 5.4 L Lymph # 0.2 L Seg Neutrophils % 89.5 H Seg Neuts % (Manual) Lymphocytes % (Manual) Lymphocytes # (Manual) PT INR POC ABG pH POC ABG pO2 ABG pO2 ABG HCO3 ABG O2 Saturation ABG Base Excess ABG Hemoglobin VBG pH Oxyhemoglobin Sodium 153 H Potassium Chloride 113.3 H Carbon Dioxide 21 L BUN 55 H Creatinine 2.4 H Glucose 260 H POC Glucose 289 H Calcium Iron TIBC AST 68 H Alkaline Phosphatase 239 H Total Creatine Kinase 243 H Troponin T 0.054 H Total Protein 5.8 L Albumin 3.0 L LDL Cholesterol Direct 30 L HDL Cholesterol 63 H Vitamin B12 Folate Urine Creatinine Salicylates Acetaminophen 11/29/18 11/29/18 11/29/18 13:39 13:39 13:39 WBC RBC Hgb Hct MCV MCH RDW Plt Count Lymph % (Auto) Lymph # Seg Neutrophils % Seg Neuts % (Manual) Lymphocytes % (Manual) Lymphocytes # (Manual) PT INR POC ABG pH POC ABG pO2 ABG pO2 ABG HCO3 ABG O2 Saturation ABG Base Excess ABG Hemoglobin VBG pH 7.186 L* Oxyhemoglobin Sodium Potassium Chloride Carbon Dioxide BUN Creatinine Glucose POC Glucose Calcium Iron TIBC AST Alkaline Phosphatase Total Creatine Kinase Troponin T Total Protein Albumin LDL Cholesterol Direct HDL Cholesterol Vitamin B12 Folate Urine Creatinine Salicylates < 0.3 L Acetaminophen < 5.0 L 11/29/18 11/29/18 11/30/18 14:24 21:17 05:50 WBC RBC Hgb Hct MCV MCH RDW Plt Count Lymph % (Auto) Lymph # Seg Neutrophils % Seg Neuts % (Manual) Lymphocytes % (Manual) Lymphocytes # (Manual) PT INR POC ABG pH 7.319 L POC ABG pO2 126 H ABG pO2 203.3 H ABG HCO3 18.5 L ABG O2 Saturation 99.3 H ABG Base Excess -6.2 L ABG Hemoglobin 10.9 L VBG pH Oxyhemoglobin Sodium Potassium Chloride Carbon Dioxide BUN Creatinine Glucose POC Glucose 242 H Calcium Iron TIBC AST Alkaline Phosphatase Total Creatine Kinase Troponin T Total Protein Albumin LDL Cholesterol Direct HDL Cholesterol Vitamin B12 Folate Urine Creatinine Salicylates Acetaminophen 11/30/18 11/30/18 11/30/18 08:52 10:31 10:58 WBC RBC 3.05 L Hgb 11.5 L Hct 35.3 L MCV 116 H MCH 38 H RDW 17.2 H Plt Count 43 L Lymph % (Auto) Lymph # Seg Neutrophils % Seg Neuts % (Manual) Lymphocytes % (Manual) Lymphocytes # (Manual) PT INR POC ABG pH POC ABG pO2 ABG pO2 ABG HCO3 ABG O2 Saturation ABG Base Excess ABG Hemoglobin VBG pH Oxyhemoglobin Sodium 153 H Potassium Chloride 117.2 H Carbon Dioxide 18 L BUN 60 H Creatinine 2.8 H Glucose 216 H POC Glucose 234 H Calcium 8.2 L Iron TIBC AST Alkaline Phosphatase Total Creatine Kinase Troponin T Total Protein Albumin LDL Cholesterol Direct HDL Cholesterol Vitamin B12 Folate Urine Creatinine Salicylates Acetaminophen 11/30/18 11/30/18 11/30/18 12:40 14:20 17:35 WBC RBC Hgb Hct MCV MCH RDW Plt Count Lymph % (Auto) Lymph # Seg Neutrophils % Seg Neuts % (Manual) Lymphocytes % (Manual) Lymphocytes # (Manual) PT INR POC ABG pH POC ABG pO2 ABG pO2 ABG HCO3 ABG O2 Saturation ABG Base Excess ABG Hemoglobin VBG pH Oxyhemoglobin Sodium Potassium Chloride Carbon Dioxide BUN Creatinine Glucose POC Glucose 235 H 182 H Calcium Iron TIBC AST Alkaline Phosphatase Total Creatine Kinase Troponin T Total Protein Albumin LDL Cholesterol Direct HDL Cholesterol Vitamin B12 Folate Urine Creatinine 173.8 H Salicylates Acetaminophen 11/30/18 12/01/18 12/01/18 23:53 04:08 04:08 WBC RBC 3.11 L Hgb 11.7 L Hct 35.3 L MCV 113 H MCH 38 H RDW 16.9 H Plt Count 43 L Lymph % (Auto) Lymph # Seg Neutrophils % Seg Neuts % (Manual) Lymphocytes % (Manual) Lymphocytes # (Manual) PT INR POC ABG pH POC ABG pO2 ABG pO2 ABG HCO3 ABG O2 Saturation ABG Base Excess ABG Hemoglobin VBG pH Oxyhemoglobin Sodium 150 H Potassium Chloride 114.6 H Carbon Dioxide 16 L BUN 67 H Creatinine 2.9 H Glucose 193 H POC Glucose 149 H Calcium 8.2 L Iron TIBC AST Alkaline Phosphatase Total Creatine Kinase Troponin T Total Protein Albumin LDL Cholesterol Direct HDL Cholesterol Vitamin B12 Folate Urine Creatinine Salicylates Acetaminophen 12/01/18 12/01/18 12/01/18 04:55 05:11 13:33 WBC RBC Hgb Hct MCV MCH RDW Plt Count Lymph % (Auto) Lymph # Seg Neutrophils % Seg Neuts % (Manual) Lymphocytes % (Manual) Lymphocytes # (Manual) PT INR POC ABG pH POC ABG pO2 ABG pO2 91.9 H ABG HCO3 17.7 L ABG O2 Saturation ABG Base Excess -6.1 L ABG Hemoglobin 11.5 L VBG pH Oxyhemoglobin Sodium Potassium Chloride Carbon Dioxide BUN Creatinine Glucose POC Glucose 236 H 255 H Calcium Iron TIBC AST Alkaline Phosphatase Total Creatine Kinase Troponin T Total Protein Albumin LDL Cholesterol Direct HDL Cholesterol Vitamin B12 Folate Urine Creatinine Salicylates Acetaminophen 12/01/18 12/02/18 12/02/18 18:20 00:17 03:40 WBC RBC Hgb Hct MCV MCH RDW Plt Count Lymph % (Auto) Lymph # Seg Neutrophils % Seg Neuts % (Manual) Lymphocytes % (Manual) Lymphocytes # (Manual) PT INR POC ABG pH POC ABG pO2 ABG pO2 78.0 L ABG HCO3 16.4 L ABG O2 Saturation ABG Base Excess -6.2 L ABG Hemoglobin 11.4 L VBG pH Oxyhemoglobin 94.5 L Sodium Potassium Chloride Carbon Dioxide BUN Creatinine Glucose POC Glucose 177 H 192 H Calcium Iron TIBC AST Alkaline Phosphatase Total Creatine Kinase Troponin T Total Protein Albumin LDL Cholesterol Direct HDL Cholesterol Vitamin B12 Folate Urine Creatinine Salicylates Acetaminophen 12/02/18 12/02/18 12/02/18 05:11 05:26 07:50 WBC 4.1 L RBC 3.01 L Hgb 11.4 L Hct 34.1 L MCV 113 H MCH 38 H RDW 17.3 H Plt Count 40 L Lymph % (Auto) Lymph # Seg Neutrophils % Seg Neuts % (Manual) Lymphocytes % (Manual) Lymphocytes # (Manual) PT INR POC ABG pH POC ABG pO2 ABG pO2 ABG HCO3 ABG O2 Saturation ABG Base Excess ABG Hemoglobin VBG pH Oxyhemoglobin Sodium Potassium 5.6 H D Chloride 113.0 H Carbon Dioxide 16 L BUN 73 H Creatinine 2.8 H Glucose 202 H POC Glucose 179 H Calcium Iron TIBC AST Alkaline Phosphatase Total Creatine Kinase Troponin T Total Protein Albumin LDL Cholesterol Direct HDL Cholesterol Vitamin B12 Folate Urine Creatinine Salicylates Acetaminophen 12/02/18 12/02/18 12/02/18 11:57 18:40 18:43 WBC RBC Hgb Hct MCV MCH RDW Plt Count Lymph % (Auto) Lymph # Seg Neutrophils % Seg Neuts % (Manual) Lymphocytes % (Manual) Lymphocytes # (Manual) PT INR POC ABG pH POC ABG pO2 ABG pO2 ABG HCO3 ABG O2 Saturation ABG Base Excess ABG Hemoglobin VBG pH Oxyhemoglobin Sodium Potassium Chloride Carbon Dioxide BUN Creatinine Glucose POC Glucose 140 H 286 H 261 H Calcium Iron TIBC AST Alkaline Phosphatase Total Creatine Kinase Troponin T Total Protein Albumin LDL Cholesterol Direct HDL Cholesterol Vitamin B12 Folate Urine Creatinine Salicylates Acetaminophen 12/02/18 12/03/18 12/03/18 23:55 04:06 04:06 WBC 4.4 L RBC 2.96 L Hgb 11.3 L Hct 33.1 L MCV 112 H MCH 38 H RDW 16.7 H Plt Count 38 L Lymph % (Auto) Lymph # Seg Neutrophils % Seg Neuts % (Manual) Lymphocytes % (Manual) Lymphocytes # (Manual) PT INR POC ABG pH POC ABG pO2 ABG pO2 ABG HCO3 ABG O2 Saturation ABG Base Excess ABG Hemoglobin VBG pH Oxyhemoglobin Sodium 146 H Potassium Chloride 112.5 H Carbon Dioxide 18 L BUN 71 H Creatinine 2.5 H Glucose 258 H POC Glucose 303 H Calcium 8.3 L Iron TIBC AST Alkaline Phosphatase Total Creatine Kinase Troponin T Total Protein Albumin LDL Cholesterol Direct HDL Cholesterol Vitamin B12 Folate Urine Creatinine Salicylates Acetaminophen 12/03/18 12/03/18 12/03/18 05:17 11:25 17:46 WBC RBC Hgb Hct MCV MCH RDW Plt Count Lymph % (Auto) Lymph # Seg Neutrophils % Seg Neuts % (Manual) Lymphocytes % (Manual) Lymphocytes # (Manual) PT INR POC ABG pH POC ABG pO2 ABG pO2 ABG HCO3 ABG O2 Saturation ABG Base Excess ABG Hemoglobin VBG pH Oxyhemoglobin Sodium Potassium Chloride Carbon Dioxide BUN Creatinine Glucose POC Glucose 328 H 288 H 202 H Calcium Iron TIBC AST Alkaline Phosphatase Total Creatine Kinase Troponin T Total Protein Albumin LDL Cholesterol Direct HDL Cholesterol Vitamin B12 Folate Urine Creatinine Salicylates Acetaminophen 12/04/18 12/04/18 12/04/18 01:15 05:47 08:01 WBC RBC 3.11 L Hgb 11.7 L Hct MCV 115 H MCH 38 H RDW 17.6 H Plt Count 35 L Lymph % (Auto) 6.9 L Lymph # 0.3 L Seg Neutrophils % 87.7 H Seg Neuts % (Manual) Lymphocytes % (Manual) Lymphocytes # (Manual) PT INR POC ABG pH POC ABG pO2 ABG pO2 ABG HCO3 ABG O2 Saturation ABG Base Excess ABG Hemoglobin VBG pH Oxyhemoglobin Sodium Potassium Chloride Carbon Dioxide BUN Creatinine Glucose POC Glucose 282 H 265 H Calcium Iron TIBC AST Alkaline Phosphatase Total Creatine Kinase Troponin T Total Protein Albumin LDL Cholesterol Direct HDL Cholesterol Vitamin B12 Folate Urine Creatinine Salicylates Acetaminophen 12/04/18 12/04/18 12/04/18 08:01 08:01 08:01 WBC RBC Hgb Hct MCV MCH RDW Plt Count Lymph % (Auto) Lymph # Seg Neutrophils % Seg Neuts % (Manual) Lymphocytes % (Manual) Lymphocytes # (Manual) PT 17.0 H INR 1.42 H POC ABG pH POC ABG pO2 ABG pO2 ABG HCO3 ABG O2 Saturation ABG Base Excess ABG Hemoglobin VBG pH Oxyhemoglobin Sodium Potassium Chloride 114.6 H Carbon Dioxide 20 L BUN 62 H Creatinine 2.0 H Glucose 266 H POC Glucose Calcium 8.3 L Iron 20 L TIBC 168 L AST Alkaline Phosphatase 292 H Total Creatine Kinase Troponin T Total Protein 5.2 L Albumin 2.1 L LDL Cholesterol Direct HDL Cholesterol Vitamin B12 Folate 7.24 L Urine Creatinine Salicylates Acetaminophen 12/04/18 12/04/18 12/04/18 11:59 17:59 22:59 WBC RBC Hgb Hct MCV MCH RDW Plt Count Lymph % (Auto) Lymph # Seg Neutrophils % Seg Neuts % (Manual) Lymphocytes % (Manual) Lymphocytes # (Manual) PT INR POC ABG pH POC ABG pO2 ABG pO2 ABG HCO3 ABG O2 Saturation ABG Base Excess ABG Hemoglobin VBG pH Oxyhemoglobin Sodium Potassium Chloride Carbon Dioxide BUN Creatinine Glucose POC Glucose 267 H 226 H 341 H Calcium Iron TIBC AST Alkaline Phosphatase Total Creatine Kinase Troponin T Total Protein Albumin LDL Cholesterol Direct HDL Cholesterol Vitamin B12 Folate Urine Creatinine Salicylates Acetaminophen 12/05/18 12/05/18 12/05/18 03:42 03:42 03:42 WBC RBC 2.89 L Hgb 10.8 L Hct 32.2 L MCV 111 H MCH 37 H RDW 16.8 H Plt Count 47 L Lymph % (Auto) 5.5 L Lymph # 0.3 L Seg Neutrophils % 89.9 H Seg Neuts % (Manual) Lymphocytes % (Manual) Lymphocytes # (Manual) PT INR POC ABG pH POC ABG pO2 ABG pO2 ABG HCO3 ABG O2 Saturation ABG Base Excess ABG Hemoglobin VBG pH Oxyhemoglobin Sodium 146 H Potassium Chloride 113.3 H Carbon Dioxide 19 L BUN 55 H Creatinine 1.8 H Glucose 268 H POC Glucose Calcium 8.3 L Iron TIBC AST Alkaline Phosphatase Total Creatine Kinase Troponin T Total Protein Albumin LDL Cholesterol Direct HDL Cholesterol Vitamin B12 1798 H Folate Urine Creatinine Salicylates Acetaminophen 12/05/18 12/05/18 12/05/18 04:14 18:38 23:59 WBC RBC Hgb Hct MCV MCH RDW Plt Count Lymph % (Auto) Lymph # Seg Neutrophils % Seg Neuts % (Manual) Lymphocytes % (Manual) Lymphocytes # (Manual) PT INR POC ABG pH POC ABG pO2 ABG pO2 75.1 L ABG HCO3 ABG O2 Saturation ABG Base Excess -4.0 L ABG Hemoglobin 8.2 L VBG pH Oxyhemoglobin 94.0 L Sodium Potassium Chloride Carbon Dioxide BUN Creatinine Glucose POC Glucose 150 H 215 H Calcium Iron TIBC AST Alkaline Phosphatase Total Creatine Kinase Troponin T Total Protein Albumin LDL Cholesterol Direct HDL Cholesterol Vitamin B12 Folate Urine Creatinine Salicylates Acetaminophen 12/06/18 12/06/18 12/06/18 04:02 04:02 04:44 WBC RBC 2.88 L Hgb 10.6 L Hct 32.8 L MCV 114 H MCH 37 H RDW 17.3 H Plt Count 59 L Lymph % (Auto) 7.1 L Lymph # 0.4 L Seg Neutrophils % 87.9 H Seg Neuts % (Manual) Lymphocytes % (Manual) Lymphocytes # (Manual) PT INR POC ABG pH POC ABG pO2 ABG pO2 ABG HCO3 ABG O2 Saturation ABG Base Excess -2.7 L ABG Hemoglobin 10.5 L VBG pH Oxyhemoglobin 94.7 L Sodium 146 H Potassium Chloride 111.9 H Carbon Dioxide 21 L BUN 52 H Creatinine 1.7 H Glucose 254 H POC Glucose Calcium 8.3 L Iron TIBC AST Alkaline Phosphatase Total Creatine Kinase Troponin T Total Protein Albumin LDL Cholesterol Direct HDL Cholesterol Vitamin B12 Folate Urine Creatinine Salicylates Acetaminophen 12/06/18 12/06/18 12/06/18 05:59 12:08 17:52 WBC RBC Hgb Hct MCV MCH RDW Plt Count Lymph % (Auto) Lymph # Seg Neutrophils % Seg Neuts % (Manual) Lymphocytes % (Manual) Lymphocytes # (Manual) PT INR POC ABG pH POC ABG pO2 ABG pO2 ABG HCO3 ABG O2 Saturation ABG Base Excess ABG Hemoglobin VBG pH Oxyhemoglobin Sodium Potassium Chloride Carbon Dioxide BUN Creatinine Glucose POC Glucose 270 H 119 H 158 H Calcium Iron TIBC AST Alkaline Phosphatase Total Creatine Kinase Troponin T Total Protein Albumin LDL Cholesterol Direct HDL Cholesterol Vitamin B12 Folate Urine Creatinine Salicylates Acetaminophen 12/07/18 12/07/18 12/07/18 00:00 02:40 02:40 WBC RBC 2.78 L Hgb 10.2 L Hct 31.5 L MCV 113 H MCH 37 H RDW 16.7 H Plt Count 57 L Lymph % (Auto) Lymph # Seg Neutrophils % Seg Neuts % (Manual) 99.0 H Lymphocytes % (Manual) 1.0 L Lymphocytes # (Manual) 0.1 L PT INR POC ABG pH POC ABG pO2 ABG pO2 ABG HCO3 ABG O2 Saturation ABG Base Excess ABG Hemoglobin VBG pH Oxyhemoglobin Sodium 147 H Potassium 3.4 L Chloride 111.6 H Carbon Dioxide 19 L BUN 50 H Creatinine 1.6 H Glucose 243 H POC Glucose 203 H Calcium Iron TIBC AST Alkaline Phosphatase Total Creatine Kinase Troponin T Total Protein Albumin LDL Cholesterol Direct HDL Cholesterol Vitamin B12 Folate Urine Creatinine Salicylates Acetaminophen 12/07/18 12/07/18 12/07/18 05:27 11:49 17:30 WBC RBC Hgb Hct MCV MCH RDW Plt Count Lymph % (Auto) Lymph # Seg Neutrophils % Seg Neuts % (Manual) Lymphocytes % (Manual) Lymphocytes # (Manual) PT INR POC ABG pH POC ABG pO2 ABG pO2 ABG HCO3 ABG O2 Saturation ABG Base Excess ABG Hemoglobin VBG pH Oxyhemoglobin Sodium Potassium Chloride Carbon Dioxide BUN Creatinine Glucose POC Glucose 299 H 249 H 205 H Calcium Iron TIBC AST Alkaline Phosphatase Total Creatine Kinase Troponin T Total Protein Albumin LDL Cholesterol Direct HDL Cholesterol Vitamin B12 Folate Urine Creatinine Salicylates Acetaminophen 12/08/18 12/08/18 12/08/18 00:09 03:43 05:09 WBC RBC Hgb Hct MCV MCH RDW Plt Count Lymph % (Auto) Lymph # Seg Neutrophils % Seg Neuts % (Manual) Lymphocytes % (Manual) Lymphocytes # (Manual) PT INR POC ABG pH POC ABG pO2 ABG pO2 ABG HCO3 ABG O2 Saturation ABG Base Excess ABG Hemoglobin VBG pH Oxyhemoglobin Sodium Potassium Chloride 110.9 H Carbon Dioxide 21 L BUN 53 H Creatinine 1.6 H Glucose 311 H POC Glucose 312 H 363 H Calcium Iron TIBC AST Alkaline Phosphatase Total Creatine Kinase Troponin T Total Protein Albumin LDL Cholesterol Direct HDL Cholesterol Vitamin B12 Folate Urine Creatinine Salicylates Acetaminophen 12/08/18 12/08/18 12/08/18 07:35 12:18 17:51 WBC RBC Hgb Hct MCV MCH RDW Plt Count Lymph % (Auto) Lymph # Seg Neutrophils % Seg Neuts % (Manual) Lymphocytes % (Manual) Lymphocytes # (Manual) PT INR POC ABG pH POC ABG pO2 ABG pO2 ABG HCO3 ABG O2 Saturation ABG Base Excess ABG Hemoglobin VBG pH Oxyhemoglobin Sodium Potassium Chloride Carbon Dioxide BUN Creatinine Glucose POC Glucose 347 H 332 H 198 H Calcium Iron TIBC AST Alkaline Phosphatase Total Creatine Kinase Troponin T Total Protein Albumin LDL Cholesterol Direct HDL Cholesterol Vitamin B12 Folate Urine Creatinine Salicylates Acetaminophen 12/08/18 12/09/18 12/09/18 23:42 04:38 05:33 WBC RBC Hgb Hct MCV MCH RDW Plt Count Lymph % (Auto) Lymph # Seg Neutrophils % Seg Neuts % (Manual) Lymphocytes % (Manual) Lymphocytes # (Manual) PT INR POC ABG pH POC ABG pO2 ABG pO2 ABG HCO3 ABG O2 Saturation ABG Base Excess ABG Hemoglobin VBG pH Oxyhemoglobin Sodium Potassium Chloride 111.5 H Carbon Dioxide BUN 55 H Creatinine 1.7 H Glucose 246 H POC Glucose 226 H 271 H Calcium 8.2 L Iron TIBC AST Alkaline Phosphatase Total Creatine Kinase Troponin T Total Protein Albumin LDL Cholesterol Direct HDL Cholesterol Vitamin B12 Folate Urine Creatinine Salicylates Acetaminophen 12/09/18 12/09/18 12/09/18 12:08 18:13 20:03 WBC RBC Hgb Hct MCV MCH RDW Plt Count Lymph % (Auto) Lymph # Seg Neutrophils % Seg Neuts % (Manual) Lymphocytes % (Manual) Lymphocytes # (Manual) PT INR POC ABG pH POC ABG pO2 ABG pO2 ABG HCO3 ABG O2 Saturation ABG Base Excess ABG Hemoglobin VBG pH Oxyhemoglobin Sodium Potassium Chloride Carbon Dioxide BUN Creatinine Glucose POC Glucose 255 H 214 H 195 H Calcium Iron TIBC AST Alkaline Phosphatase Total Creatine Kinase Troponin T Total Protein Albumin LDL Cholesterol Direct HDL Cholesterol Vitamin B12 Folate Urine Creatinine Salicylates Acetaminophen 12/09/18 12/10/18 12/10/18 23:32 04:40 05:08 WBC RBC Hgb Hct MCV MCH RDW Plt Count Lymph % (Auto) Lymph # Seg Neutrophils % Seg Neuts % (Manual) Lymphocytes % (Manual) Lymphocytes # (Manual) PT INR POC ABG pH POC ABG pO2 ABG pO2 ABG HCO3 ABG O2 Saturation ABG Base Excess ABG Hemoglobin 10.6 L VBG pH Oxyhemoglobin 94.8 L Sodium Potassium 3.5 L Chloride 111.3 H Carbon Dioxide BUN 53 H Creatinine 1.6 H Glucose 125 H POC Glucose 140 H Calcium 8.1 L Iron TIBC AST Alkaline Phosphatase Total Creatine Kinase Troponin T Total Protein Albumin LDL Cholesterol Direct HDL Cholesterol Vitamin B12 Folate Urine Creatinine Salicylates Acetaminophen 12/10/18 12/10/18 12/10/18 05:27 12:40 17:34 WBC RBC Hgb Hct MCV MCH RDW Plt Count Lymph % (Auto) Lymph # Seg Neutrophils % Seg Neuts % (Manual) Lymphocytes % (Manual) Lymphocytes # (Manual) PT INR POC ABG pH POC ABG pO2 ABG pO2 ABG HCO3 ABG O2 Saturation ABG Base Excess ABG Hemoglobin VBG pH Oxyhemoglobin Sodium Potassium Chloride Carbon Dioxide BUN Creatinine Glucose POC Glucose 133 H 230 H 165 H Calcium Iron TIBC AST Alkaline Phosphatase Total Creatine Kinase Troponin T Total Protein Albumin LDL Cholesterol Direct HDL Cholesterol Vitamin B12 Folate Urine Creatinine Salicylates Acetaminophen 12/10/18 12/11/18 12/11/18 23:28 05:36 06:42 WBC 3.5 L RBC 2.77 L Hgb 10.2 L Hct 31.5 L MCV 114 H MCH 37 H RDW 17.4 H Plt Count 67 L Lymph % (Auto) 9.4 L Lymph # 0.3 L Seg Neutrophils % 84.6 H Seg Neuts % (Manual) Lymphocytes % (Manual) Lymphocytes # (Manual) PT INR POC ABG pH POC ABG pO2 ABG pO2 ABG HCO3 ABG O2 Saturation ABG Base Excess ABG Hemoglobin VBG pH Oxyhemoglobin Sodium Potassium Chloride Carbon Dioxide BUN Creatinine Glucose POC Glucose 227 H 222 H Calcium Iron TIBC AST Alkaline Phosphatase Total Creatine Kinase Troponin T Total Protein Albumin LDL Cholesterol Direct HDL Cholesterol Vitamin B12 Folate Urine Creatinine Salicylates Acetaminophen 12/11/18 12/11/18 12/11/18 06:42 12:07 16:47 WBC RBC Hgb Hct MCV MCH RDW Plt Count Lymph % (Auto) Lymph # Seg Neutrophils % Seg Neuts % (Manual) Lymphocytes % (Manual) Lymphocytes # (Manual) PT INR POC ABG pH POC ABG pO2 ABG pO2 ABG HCO3 ABG O2 Saturation ABG Base Excess ABG Hemoglobin VBG pH Oxyhemoglobin Sodium Potassium Chloride 111.2 H Carbon Dioxide BUN 64 H Creatinine 2.1 H Glucose 173 H POC Glucose 116 H 128 H Calcium Iron TIBC AST 45 H Alkaline Phosphatase 291 H Total Creatine Kinase Troponin T Total Protein 5.5 L Albumin 2.1 L LDL Cholesterol Direct HDL Cholesterol Vitamin B12 Folate Urine Creatinine Salicylates Acetaminophen 12/11/18 12/12/18 12/12/18 23:16 05:30 06:23 WBC RBC Hgb Hct MCV MCH RDW Plt Count Lymph % (Auto) Lymph # Seg Neutrophils % Seg Neuts % (Manual) Lymphocytes % (Manual) Lymphocytes # (Manual) PT INR POC ABG pH POC ABG pO2 ABG pO2 ABG HCO3 ABG O2 Saturation ABG Base Excess ABG Hemoglobin VBG pH Oxyhemoglobin Sodium Potassium Chloride 109.6 H Carbon Dioxide 20 L BUN 74 H Creatinine 2.6 H Glucose 144 H POC Glucose 161 H 147 H Calcium 8.3 L Iron TIBC AST Alkaline Phosphatase Total Creatine Kinase Troponin T Total Protein Albumin LDL Cholesterol Direct HDL Cholesterol Vitamin B12 Folate Urine Creatinine Salicylates Acetaminophen 12/12/18 12/12/18 12/13/18 12:12 23:43 05:10 WBC RBC Hgb Hct MCV MCH RDW Plt Count Lymph % (Auto) Lymph # Seg Neutrophils % Seg Neuts % (Manual) Lymphocytes % (Manual) Lymphocytes # (Manual) PT INR POC ABG pH POC ABG pO2 ABG pO2 ABG HCO3 ABG O2 Saturation ABG Base Excess ABG Hemoglobin VBG pH Oxyhemoglobin Sodium 146 H Potassium Chloride 111.0 H Carbon Dioxide BUN 81 H Creatinine 2.8 H Glucose 142 H POC Glucose 225 H 106 H Calcium Iron TIBC AST Alkaline Phosphatase Total Creatine Kinase Troponin T Total Protein Albumin LDL Cholesterol Direct HDL Cholesterol Vitamin B12 Folate Urine Creatinine Salicylates Acetaminophen 12/13/18 05:42 WBC RBC Hgb Hct MCV MCH RDW Plt Count Lymph % (Auto) Lymph # Seg Neutrophils % Seg Neuts % (Manual) Lymphocytes % (Manual) Lymphocytes # (Manual) PT INR POC ABG pH POC ABG pO2 ABG pO2 ABG HCO3 ABG O2 Saturation ABG Base Excess ABG Hemoglobin VBG pH Oxyhemoglobin Sodium Potassium Chloride Carbon Dioxide BUN Creatinine Glucose POC Glucose 162 H Calcium Iron TIBC AST Alkaline Phosphatase Total Creatine Kinase Troponin T Total Protein Albumin LDL Cholesterol Direct HDL Cholesterol Vitamin B12 Folate Urine Creatinine Salicylates Acetaminophen
--- NOTE | 2018-12-13 10:08 | Discharge Summary ---
Providers - Providers Date of Admission: 11/29/18 16:06 Date of discharge: 12/13/18 Attending physician: MITESH FISCHER 11/30/18 00:06 Consult to Dietitian/Nutrition [CONS] Routine Physician Instructions: Reason For Exam: Reason for Consult: Write/Manage Tube Feeding 11/30/18 00:12 Consult to Physician [CONS] Routine Comment: Consulting Provider: CORIE NAVARRO Physician Instructions: Reason For Exam: Resp failure 11/30/18 00:13 Consult to Dietitian/Nutrition [CONS] Routine Physician Instructions: Assess nutrtn needs, initiate, modify, manage TF Reason For Exam: Reason for Consult: Write/Manage Tube Feeding Reason for Consult: Write/Manage Tube Feeding 11/30/18 06:21 Consult to Physician [CONS] Routine Comment: Consulting Provider: CHRISTINE LEO Physician Instructions: Reason For Exam: CONNIE 11/30/18 06:23 Consult to Physician [CONS] Routine Comment: Consulting Provider: RYAN MEJIA Physician Instructions: Reason For Exam: HIV status,Abx coverage Consult to Wound/ET Nurse [CONS] Routine Reason For Exam: wound eval 11/30/18 11:27 Consult to Physician [CONS] Routine Comment: Consulting Provider: KATLIN LEDEZMA Physician Instructions: Reason For Exam: CHF, patient known to you 11/30/18 11:32 Consult to Physician [CONS] Routine Comment: Consulting Provider: MIRIAM SUBRAMANIAN Physician Instructions: Reason For Exam: severe pancytopenia, plt 48 12/08/18 10:45 Consult to Physician [CONS] Routine Comment: Consulting Provider: MARIA E THOMAS Physician Instructions: Reason For Exam: AMS Primary care physician: SNEHA LAND Hospitalization Reason for admission: acute respiratory failure/metabolic and Neuropathic Condition: Critical Hospital course: Patient is a 73 yo man from [facility] with severe end-stage co-morbities including HIV, type 2 DM, NSTEMI type 2, hyperkalemia, hypernatremia, malnutrition, severe CHF with EF 15-20%, Dementia, CVA with SAH after fall here at [facility] on 05/22/18 with transferred to [facility], recurrent bouts of hypoglycmia, who had been admitted 3 times this month of November 2018. Initially he was admitted on 10/24/18 to 11/01/18 due to AMS, new CVA was ruled out by MRI but did show chronic infarcts in the right parietal lobe and the right MCA [employer] watershed territory and chronic lacunar infarct in the right paracentral [place] area. It was recommended that patient go to SNF but refused and took him home. He returned 2 days later due to hypoglycemia, it appears he wasn't eating enough but still taking DM medications. He was then discharged to [facility] on 11/07/2018. He returned 2 days later on 11/09/2018 due to hypoxemia and hypoglycemia again. He was discharged back to the [facility] on . Now he returns to the ED on 11/29/18 with severe worsening AMS GCS of 5 requiring Intubation. I do not know why he is on Fentanyl drip. * CT head without contrast Impression: There is continued extensive microvascular angiopathy as detailed...without CT evidence of acute ICH. * pCXR Impression: Minimal interstitial edema, ngt in stomach, needs advancing 5-10 cm, borderline cardiomegaly, no consolidation or effusion * Abd XRAY after NGT advancement, shows it is in the correct position * Prior admissions was secondary to Hypoglycemia * Neurology believes that prior stroke may be playing a part although imaging studies do not show any new stroke --Acute respiratory failure; requiring intubation more than 96 hours Vent dependent, unable to wean, pulmonary following Continue current management, patient may need trach and PEG If cannot tolerate weaning parameters --Acute metabolic encephalopathy; present on admission; multifactorial Continue supportive care --History of HIV; management per ID . --Type 2 diabetes mellitus; Accu-Chek sliding scale coverage and ADA diet and insulin --SIRS with possible sepsis: Extensively evaluated ID managed the patient, monitor off antibiotics --Acute on chronic systolic congestive heart failure: Ejection fraction 10-20%, Cardiology following Continue current anti-failure medications --Acute kidney injury; vasomotor nephropathy Avoid nephrotoxins, nephrology following --Hypernatremia; present on admission, now resolved Closely monitor electrolytes --Type 2 diabetes mellitus; Accu-Chek sliding scale coverage and ADA diet Insulin as needed --Nonspecific elevation of troponins; supportive care Cardiology following --Severe thrombocytopenia ; please secondary to underlying HIV No evidence of bleeding, closely monitor transfuse as needed --Severe malnutrition/hypoalbuminemia; nutrition supplements Nutrition consult, supportive care --DVT prophylaxis; SCDs No pharmacologic anticoagulation in view of severe thrombocytopenia --Full CODE STATUS --Poor prognosis; plan of care is reviewed with the patient's nurse and case management Patient transferred to hospice Further management per hospice medical lab scientist Patient is critically ill at the time of transfer Dis[facility]: [id number] ([facility]) Time spent for discharge: 32 min Core Measure Documentation - Palliative Care Palliative Care/ Comfort Measures: Hospice Care - Core Measures Any of the following diagnoses?: none Exam - Constitutional Vitals: Temp Pulse Resp BP Pulse Ox 98.6 F 93 H 26 H 103/63 100 12/13/18 08:00 12/13/18 09:00 12/13/18 09:00 12/13/18 09:00 12/13/18 09:00 Plan Activity: advance as tolerated Diet: other (tube feeding) Additional Instructions: Management per hospice medical lab scientist Follow up with: SNEHA LAND MD [Primary Care Provider] - 7 Days
[2018-12-13] MEDS: FOLVITE PO SCH (10:33)
[2018-12-13] MEDS: PEPCID PO SCH (10:33)
[2018-12-13] MEDS: RETROVIR PO SCH (10:33)
[2018-12-13] MEDS: ISENTRESS PO SCH (10:34)
[2018-12-13] MEDS: COLACE PO SCH (10:35)
[2018-12-13] MEDS: ZIAGEN PO SCH (10:35)
[2018-12-13] MEDS: EPIVIR PO SCH (10:35)
[2018-12-13] MEDS: SUBLIMAZE IV PRN (12:36)
--- NOTE | 2018-12-13 12:54 | Progress Note ---
Assessment and Plan Altered mental status Respiratory failure Thrombocytopenia Hx of CVA Non-specific troponin Cardiomyopathy, EF 15-20% Moderate to severe MR and TR Renal failure HIV For rapid atrial fibrillation we will recommended Cardizem 30mg every 6 hrs. Subjective Date of service: 12/13/18 Principal diagnosis: low plt Interval history: Telemetry reveals rapid atrial fibrillation. Blood pressure at 155/83. For planned discharge to inpatient hospice today. Objective Vital Signs Temp Pulse Pulse Pulse Resp Resp BP 12/13/18 12:00 98.5 F 12/13/18 11:14 123 H 108/72 12/13/18 11:12 121 H 24 12/13/18 09:00 93 H 26 H 103/63 12/13/18 08:01 121 H 25 H 111/72 12/13/18 08:00 98.6 F 12/13/18 07:39 121 H 104/73 12/13/18 07:25 96 H 26 H 12/13/18 07:01 121 H 28 H 104/73 12/13/18 06:00 118 H 21 108/66 12/13/18 05:00 118 H 23 109/73 12/13/18 04:00 98.7 F 118 H 120 H 16 106/69 12/13/18 03:32 97 H 110/72 12/13/18 03:00 122 H 24 110/72 12/13/18 02:00 121 H 19 109/67 12/13/18 01:00 121 H 15 100/60 12/13/18 00:05 122 H 26 H 106/61 12/13/18 00:00 97.4 F L 121 H 123 H 20 106/61 12/12/18 23:11 119 H 110/67 12/12/18 23:00 120 H 27 H 110/67 12/12/18 22:00 118 H 25 H 107/63 12/12/18 21:00 97 H 23 111/64 12/12/18 20:00 97.7 F 122 H 120 H 24 110/68 12/12/18 19:42 125 H 25 H 12/12/18 19:10 91 H 102/62 12/12/18 19:00 122 H 19 102/62 12/12/18 18:00 123 H 25 H 105/70 12/12/18 17:01 102 H 27 H 106/60 12/12/18 16:01 122 H 24 102/66 12/12/18 16:00 98.7 F 12/12/18 15:41 121 H 25 H 12/12/18 15:37 121 H 100/69 12/12/18 15:00 122 H 27 H 100/69 12/12/18 14:00 126 H 26 H 106/70 12/12/18 13:00 124 H 26 H 108/75 Pulse Ox 12/13/18 12:00 12/13/18 11:14 100 12/13/18 11:12 12/13/18 09:00 100 12/13/18 08:01 100 12/13/18 08:00 12/13/18 07:39 12/13/18 07:25 12/13/18 07:01 12/13/18 06:00 99 12/13/18 05:00 12/13/18 04:00 100 12/13/18 03:32 99 12/13/18 03:00 99 12/13/18 02:00 12/13/18 01:00 98 12/13/18 00:05 100 12/13/18 00:00 100 12/12/18 23:11 100 12/12/18 23:00 97 12/12/18 22:00 98 12/12/18 21:00 97 12/12/18 20:00 98 12/12/18 19:42 12/12/18 19:10 100 12/12/18 19:00 100 12/12/18 18:00 98 12/12/18 17:01 95 12/12/18 16:01 97 12/12/18 16:00 12/12/18 15:41 12/12/18 15:37 98 12/12/18 15:00 100 12/12/18 14:00 97 12/12/18 13:00 98 - Physical Examination General: Other (on the vent) HEENT: Positive: PERRL Cardiac: Positive: irregularly irregular Neuro: Positive: Other (unresponsive, on the vent) - Labs and Meds Comprehensive Metabolic Panel 12/13/18 Range/Units 05:10 Sodium 146 H (137-145) mmol/L Potassium 3.8 (3.6-5.0) mmol/L Chloride 111.0 H (98-107) mmol/L Carbon Dioxide 23 (22-30) mmol/L BUN 81 H (9-20) mg/dL Creatinine 2.8 H (0.8-1.5) mg/dL Glucose 142 H (75-100) mg/dL Calcium 8.5 (8.4-10.2) mg/dL
[2018-12-13 13:35] VITALS: BP 111/64
[2018-12-13] MEDS ORDERED: CARDIZEM PO SCH (14:00)
== END 2018-12-13 13:30 | disposition hospice, inpatient (51) | DRG 974 ==
LOC: ED 12:36 → CC1 16:06
PROVIDERS: ADMIT Internal Medicine; ATTEND Internal Medicine
PROC: 5A1955Z Respiratory Ventilation, Greater than 96 Consecutive Hours (ICD-10-PCS; principal; 2018-11-29)
PROC: 0BH17EZ Insertion of Endotracheal Airway into Trachea, Via Natural or Artificial Opening (ICD-10-PCS; 2018-11-29)
PROC: 3E0234Z Introduction of Serum, Toxoid and Vaccine into Muscle, Percutaneous Approach (ICD-10-PCS; 2018-11-30)
PROC: 4A033R1 Measurement of Arterial Saturation, Peripheral, Percutaneous Approach (ICD-10-PCS; 2018-11-30)
PROC: 30233R1 Transfusion of Nonautologous Platelets into Peripheral Vein, Percutaneous Approach (ICD-10-PCS; 2018-12-05)
PROC: 009U3ZX Drainage of Spinal Canal, Percutaneous Approach, Diagnostic (ICD-10-PCS; 2018-12-06)
PROC: B01B1ZZ Fluoroscopy of Spinal Cord using Low Osmolar Contrast (ICD-10-PCS; 2018-12-06)
DX: A41.9 Sepsis, unspecified organism (principal); N17.0 Acute kidney failure with tubular necrosis; B20 Human immunodeficiency virus [HIV] disease; E43 Unspecified severe protein-calorie malnutrition; G93.41 Metabolic encephalopathy; J96.01 Acute respiratory failure with hypoxia; L89.93 Pressure ulcer of unspecified site, stage 3; I50.23 Acute on chronic systolic (congestive) heart failure; E87.0 Hyperosmolality and hypernatremia; I13.0 Hypertensive heart and chronic kidney disease with heart failure and stage 1 through stage 4 chronic kidney disease, or unspecified chronic kidney disease; I42.9 Cardiomyopathy, unspecified; J43.9 Emphysema, unspecified; E86.0 Dehydration; F03.90 Unspecified dementia, unspecified severity, without behavioral disturbance, psychotic disturbance, mood disturbance, and anxiety; K21.9 Gastro-esophageal reflux disease without esophagitis; E11.22 Type 2 diabetes mellitus with diabetic chronic kidney disease; N18.9 Chronic kidney disease, unspecified; E11.65 Type 2 diabetes mellitus with hyperglycemia; E78.5 Hyperlipidemia, unspecified; D69.6 Thrombocytopenia, unspecified; D75.89 Other specified diseases of blood and blood-forming organs; I48.91 Unspecified atrial fibrillation; D53.9 Nutritional anemia, unspecified; E11.649 Type 2 diabetes mellitus with hypoglycemia without coma; N40.0 Benign prostatic hyperplasia without lower urinary tract symptoms; Z79.899 Other long term (current) drug therapy; Z86.73 Personal history of transient ischemic attack (TIA), and cerebral infarction without residual deficits; Z85.46 Personal history of malignant neoplasm of prostate; Z79.82 Long term (current) use of aspirin; Z79.4 Long term (current) use of insulin; Z82.49 Family history of ischemic heart disease and other diseases of the circulatory system; Z23 Encounter for immunization; Z68.22 Body mass index [BMI] 22.0-22.9, adult; I25.2 Old myocardial infarction
CPT/HCPCS: 36415; 36600; 62270; 70450; 71045; 74018; 76770; 77003; 80048; 80053; 80061; 80074; 80202; 80307; 80320; 81001; 82140; 82533; 82550; 82570; 82607; 82728; 82747; 82803; 82805; 82947; 82962; 83550; 83735; 84100; 84160; 84300; 84484; 85007; 85025; 85027; 85610; 85730; 86403; 86592; 86850; 86900; 86901; 87040; 87086; 87116; 89051; 90732; 93005; 93010; 94002; 94003; 94640; 95819; 96361; 96374; 96375; G0378; G0480; J0692; J1815; J2930; J3010; J3370; J7030; J7040; J7050; P9035